=== PATIENT | female | born 1945 | race Caucasian/White ===

== ENCOUNTER 2016-12-11 18:41 | Emergency (ER) | payer MEDICARE, BC ==
--- NOTE | 2016-12-11 19:07 | ED ---
General Adult HPI - General Chief complaint: Neuro Symptoms/Deficit Stated complaint: poss TIA Time Seen by Provider: 12/11/16 18:50 Source: patient, EMS, RN notes reviewed Mode of arrival: EMS Limitations: no limitations - History of Present Illness Initial comments: Patient is a pleasant 71-year-old female presenting to the emergency department with difficulty using her left hand. Onset was around 5:00. Patient states she noticed this when she was trying to open a drawer and use her left hand to dial numbers. Patient does not feel confused. No headache. No speech problems. No other area of involvement. No history of similar symptoms previously. - Related Data Home Medications Medication Instructions Recorded Confirmed Ascorbic Acid [Vitamin C] 500 mg PO BID 12/12/14 12/12/14 Aspirin 81 mg PO ONCE 12/12/14 12/12/14 Cholecalciferol [Vitamin D3] 1,000 unit PO BID 12/12/14 12/12/14 Cyanocobalamin [Vitamin B-12] 500 mcg PO BID 12/12/14 12/12/14 Folic Acid 0.4 mg PO BID 12/12/14 12/12/14 Previous Rx's Medication Instructions Recorded Apixaban [Eliquis] 2.5 mg PO BID #60 tab 12/13/14 Metoprolol Tartrate [Lopressor] 12.5 mg PO BID #60 tab 12/13/14 Allergies Allergy/AdvReac Type Severity Reaction Status Date / Time No Known Allergies Allergy Verified 12/12/14 14:50 Review of Systems ROS Statement: Those systems with pertinent positive or pertinent negative responses have been documented in the HPI. ROS Other: All systems not noted in ROS Statement are negative. Constitutional: Denies: fever Eyes: Denies: eye pain ENT: Denies: ear pain Respiratory: Denies: cough Cardiovascular: Denies: chest pain Endocrine: Denies: fatigue Gastrointestinal: Denies: abdominal pain Genitourinary: Denies: urgency Musculoskeletal: Denies: back pain Skin: Denies: rash Neurological: Denies: headache, paresthesias, confusion Past Medical History Past Medical History: No Reported History Additional Past Medical History / Comment(s): polyps(benign), tinnitus, diverticular disease, hemorroids, kidney stone, aneima History of Any Multi-Drug Resistant Organisms: None Reported Past Surgical History: Appendectomy, Section, Tonsillectomy Additional Past Surgical History / Comment(s): SINUS SURGERY Past Anesthesia/Blood Transfusion Reactions: No Reported Reaction Past Psychological History: No Psychological Hx Reported Smoking Status: Never smoker Past Alcohol Use History: None Reported Past Drug Use History: None Reported - Past Family History Father Family Medical History: Cancer, Congestive Heart Failure (CHF) Additional Family Medical History / Comment(s): prostate ca with mnets to bones Mother Family Medical History: Renal Disease General Exam Limitations: no limitations General appearance: alert, in no apparent distress Head exam: Present: atraumatic Eye exam: Present: normal appearance, PERRL, EOMI. Absent: nystagmus ENT exam: Present: normal oropharynx Neck exam: Present: normal inspection Respiratory exam: Present: normal lung sounds bilaterally Cardiovascular Exam: Present: regular rate, normal rhythm GI/Abdominal exam: Present: soft. Absent: tenderness Extremities exam: Present: normal inspection Neurological exam: Present: alert, oriented X3, CN II-XII intact Expanded Patient oriented to: Present: person, place, time Speech: Present: fluid speech Cranial nerves: EOM's Intact: Normal, Facial Sensation: Normal Cerebellar function: Finger to Nose: Abnormal Left Sensory exam: Upper Extremity Light Touch: Normal, Lower Extremity Light Touch: Normal Motor strength exam: RUE: 5, LUE: 5, RLE: 5, LLE: 5 Eye Response: (4) open spontaneously Motor Response: (6) obeys commands Verbal Response: (5) oriented Psychiatric exam: Present: normal affect, normal mood Skin exam: Present: normal color Course Vital Signs 12/11/16 12/11/16 18:50 19:05 Temperature 97.8 F Pulse Rate 78 87 Respiratory 20 18 Rate Blood Pressure 158/82 160/87 O2 Sat by Pulse 97 99 Oximetry - Reevaluation(s) Reevaluation #1: 12/11/16 19:26 Case was discussed with radiologist, Dr. Dotson who does recommend starting the process of TPA and will get an the robot to evaluate the patient. 12/11/16 19:27 Patient was updated regarding TPA and benefits and especially risks. Patient is made aware that there is risk of potential permanent disability or related with this medication. Patient is made aware of potential for bleeding including bleeding in the brain and other areas of the body. Despite this patient would like to have TPA. Family is present. Exclusion criteria reviewed. Patient states she no longer takes Eliquis, it was only for one month in 2014. 12/11/16 19:[address] Dotson did evaluate patient and still does want TPA. He recommended transfer to [facility] following this. CT reviewed. 12/11/16 19:45 Patient is now questioning if she wants to have TPA or not. Patient is advised 3 hour window will be closed in 15 minutes. 12/11/16 19:52 Case was discussed with Dr. Lacey at [facility] who will accept transfer. Patient did decide to receive TPA. EKG Findings - EKG Comments: EKG Findings:: Normal sinus rhythm 79. AZ 162. QRS 118. QT 418. QTC 479. Left axis. LVH with repolarization change. Inferior and anterior Q waves. Medical Decision Making - Lab Data Result diagrams: 12/11/16 18:50 12/11/16 18:50 Lab Results 12/11/16 12/11/16 12/11/16 Range/Units 18:50 18:50 18:50 WBC 4.9 (3.8-10.6) k/uL RBC 4.51 (3.80-5.40) m/uL Hgb 14.0 (11.4-16.0) gm/dL Hct 42.7 (34.0-46.0) % MCV 94.7 (80.0-100.0) fL MCH 31.1 (25.0-35.0) pg MCHC 32.8 (31.0-37.0) g/dL RDW 13.9 (11.5-15.5) % Plt Count 161 (150-450) k/uL Neutrophils % 64 % Lymphocytes % 27 % Monocytes % 6 % Eosinophils % 1 % Basophils % 0 % Neutrophils # 3.2 (1.3-7.7) k/uL Lymphocytes # 1.3 (1.0-4.8) k/uL Monocytes # 0.3 (0-1.0) k/uL Eosinophils # 0.1 (0-0.7) k/uL Basophils # 0.0 (0-0.2) k/uL PT (9.0-12.0) sec INR (<1.2) APTT (22.0-30.0) sec Sodium 141 (137-145) mmol/L Potassium 4.2 (3.5-5.1) mmol/L Chloride 105 (98-107) mmol/L Carbon Dioxide 25 (22-30) mmol/L Anion Gap 11 mmol/L BUN 23 H (7-17) mg/dL Creatinine 0.90 (0.52-1.04) mg/dL Est GFR (MDRD) Af Amer >60 (>60 ml/min/1.73 sqM) Est GFR (MDRD) Non-Af >60 (>60 ml/min/1.73 sqM) Glucose 86 (74-99) mg/dL POC Glucose (mg/dL) (75-99) mg/dL POC Glu Mediation Commissioner ID Calcium 9.6 (8.4-10.2) mg/dL Total Bilirubin 0.5 (0.2-1.3) mg/dL AST 33 (14-36) U/L ALT 44 (9-52) U/L Alkaline Phosphatase 78 (38-126) U/L Total Creatine Kinase 68 (30-135) U/L CK-MB (CK-2) 0.9 (0.0-2.4) ng/mL CK-MB (CK-2) Rel Index 1.3 Troponin I <0.012 (0.000-0.034) ng/mL Total Protein 6.9 (6.3-8.2) g/dL Albumin 4.2 (3.5-5.0) g/dL 12/11/16 12/11/16 Range/Units 18:50 19:18 WBC (3.8-10.6) k/uL RBC (3.80-5.40) m/uL Hgb (11.4-16.0) gm/dL Hct (34.0-46.0) % MCV (80.0-100.0) fL MCH (25.0-35.0) pg MCHC (31.0-37.0) g/dL RDW (11.5-15.5) % Plt Count (150-450) k/uL Neutrophils % % Lymphocytes % % Monocytes % % Eosinophils % % Basophils % % Neutrophils # (1.3-7.7) k/uL Lymphocytes # (1.0-4.8) k/uL Monocytes # (0-1.0) k/uL Eosinophils # (0-0.7) k/uL Basophils # (0-0.2) k/uL PT 11.1 (9.0-12.0) sec INR 1.1 (<1.2) APTT 23.6 (22.0-30.0) sec Sodium (137-145) mmol/L Potassium (3.5-5.1) mmol/L Chloride (98-107) mmol/L Carbon Dioxide (22-30) mmol/L Anion Gap mmol/L BUN (7-17) mg/dL Creatinine (0.52-1.04) mg/dL Est GFR (MDRD) Af Amer (>60 ml/min/1.73 sqM) Est GFR (MDRD) Non-Af (>60 ml/min/1.73 sqM) Glucose (74-99) mg/dL POC Glucose (mg/dL) 78 (75-99) mg/dL POC Glu Mediation Commissioner ID Tressa Saul Calcium (8.4-10.2) mg/dL Total Bilirubin (0.2-1.3) mg/dL AST (14-36) U/L ALT (9-52) U/L Alkaline Phosphatase (38-126) U/L Total Creatine Kinase (30-135) U/L CK-MB (CK-2) (0.0-2.4) ng/mL CK-MB (CK-2) Rel Index Troponin I (0.000-0.034) ng/mL Total Protein (6.3-8.2) g/dL Albumin (3.5-5.0) g/dL - Radiology Data Radiology results: image reviewed (CT scan of the brain shows no acute intercranial hemorrhage, mass effect, or midline shift. Two-view chest x-ray shows no acute process.) Critical Care Time Critical Care Time: Yes Total Critical Care Time: 32 Disposition Clinical Impression: Cerebrovascular accident Disposition: OTHER INSTITUTION NOT DEFINED Condition: Serious Referrals: Gino Thayer DO [Primary Care Provider] - 1-2 days Time of Disposition: 19:54 - Out of Hospital Transfer - Req. Specs Out of Hospital Transfer - Requested Specifics: Other Emergency Center
[2016-12-11 19:11] LABS: Basophils % (A) 0 %; CH 31.3; CHCM 33.3; Eosinophils # (A) 0.1 k/uL (0-0.7); Eosinophils % (A) 1 %; HCT 42.7 % (34.0-46.0); HDW 2.26; Luc # (Auto) 0.09; Luc % (Auto) 2; Lymphocytes # (A) 1.3 k/uL (1.0-4.8); Lymphocytes % (A) 27 %; MCH 31.1 pg (25.0-35.0); MCHC 32.8 g/dL (31.0-37.0); MCV 94.7 fL (80.0-100.0); Mean Platelet Volume 8.4; Monocytes # (A) 0.3 k/uL (0-1.0); Monocytes % (A) 6 %; Neutrophils # (A) 3.2 k/uL (1.3-7.7); Neutrophils % (A) 64 %; RBC 4.51 m/uL (3.80-5.40); RDW 13.9 % (11.5-15.5); WBC 4.9 k/uL (3.8-10.6); WBC (Perox) 4.98
[2016-12-11 19:15] LABS: INR 1.1 (<1.2)
[2016-12-11 19:16] LABS: Partial Thromboplastin Time 23.6 sec (22.0-30.0); Prothrombin Time 11.1 sec (9.0-12.0)
[2016-12-11 19:20] LABS: Glucose,Whole Blood 78 mg/dL (75-99)
[2016-12-11 19:20] LABS: ALT 44 U/L (9-52); AST 33 U/L (14-36); Alkaline Phosphatase 78 U/L (38-126); Anion Gap 11 mmol/L; Blood Urea Nitrogen 23 mg/dL (7-17); Calcium 9.6 mg/dL (8.4-10.2); Carbon Dioxide 25 mmol/L (22-30); Chloride 105 mmol/L (98-107); Glucose 86 mg/dL (74-99); Non-African American GFR(MDRD) >60 (>60 ml/min/1.73 sqM); Potassium 4.2 mmol/L (3.5-5.1); Sodium 141 mmol/L (137-145); Total Bilirubin 0.5 mg/dL (0.2-1.3); Total Protein 6.9 g/dL (6.3-8.2)
[2016-12-11] MEDS ORDERED: tPA (Alteplase) PER PHARMACY 1 EACH MISC MISCELLANE PRN (19:28)
[2016-12-11] MEDS ORDERED: ALTEPLASE BOLUS 5 MG in EMPTY SYRINGE 1 SYR IV STA (19:30)
[2016-12-11] MEDS ORDERED: ALTEPLASE IV STA (19:30)
[2016-12-11 19:33] LABS: Creatine Kinase 68 U/L (30-135)
--- NOTE | 2016-12-11 19:33 | CT ---
EXAMINATION TYPE: CT brain wo con DATE OF EXAM: 12/11/2016 COMPARISON: NONE HISTORY: left sided weakness, blurred vision CT DLP: 981.7 mGycm Automated exposure control for dose reduction was used. FINDINGS: There is no acute intracranial hemorrhage, mass effect, or midline shift identified. The v entricles and sulci are within normal limits in size. The globes are intact and the visualized sinus es are clear. IMPRESSION: No acute intracranial hemorrhage, mass effect, or midline shift is seen.
--- NOTE | 2016-12-11 19:35 | XR ---
EXAMINATION TYPE: XR chest 2V DATE OF EXAM: 12/11/2016 COMPARISON: 12/12/2014 HISTORY: Altered mental status, possible TIA, numbness left arm. TECHNIQUE: Frontal and lateral views of the chest are obtained. FINDINGS: There is no focal air space opacity, pleural effusion, or pneumothorax seen. The cardiac silhouette size is within normal limits. The osseous structures are intact. IMPRESSION: No acute cardiopulmonary process.
[2016-12-11] MEDS ORDERED: SODIUM CHLORIDE 0.9% 1,000 ML IV ONE (19:44)
[2016-12-11 19:46] LABS: Creatine Kinase MB 0.9 ng/mL (0.0-2.4); Troponin I <0.012 ng/mL (0.000-0.034)
[2016-12-11 20:09] VITALS: TEMP 97.1
[2016-12-11 20:23] VITALS: BP 154/71; PULSE 89; RESP 16
== END 2016-12-11 20:25 | disposition other institution (70) ==
LOC: EC 18:41
DX: I63.9 Cerebral infarction, unspecified (principal); D64.9 Anemia, unspecified; Z79.82 Long term (current) use of aspirin; Z79.899 Other long term (current) drug therapy
CPT/HCPCS: 99291 ×2; 37195 ×2; 36415; 93005; 80053; 82550; 82553; 84484; 85025; 85610; 85730; 71020; 70450; J2997

== ENCOUNTER → 2017-03-05 | Outpatient (CLI) | payer MEDICARE, BC ==
--- NOTE | 2017-03-05 17:15 | BD ---
EXAMINATION TYPE: MG DEXA axial skeleton. DATE OF EXAM: 03/05/2017 COMPARISON: DEXA bone scan December 29, 2014 CLINICAL HISTORY: Postmenopausal female Height: 5 FT 1 1/2 IN Weight: 112 FRAX RISK QUESTIONS: Alcohol (3 or more units per day): NO Family History (Parent hip fracture): NO Glucocorticoids (More than 3mos): NO (Ex: prednisone, prednisolone, methylprednisolone, dexamethasone, and hydrocortisone). History of Fracture in Adulthood: YES Secondary Osteoporosis: 1. Type 1 Diabetes: NO 2. Hyperthyroidism: NO 3. Menopause before 45: NO 4. Malnutrition: NO 5. Chronic liver disease: NO Rheumatoid Arthritis: NO Current Tobacco Use: NO RISK FACTORS HISTORY OF: Family History of Osteoporosis: YES Active: YES Postmenopausal woman: AGE 51 MEDICATIONS: Additional Medications: ELOQUIST, LIPITOR, METOPROLOL Additional History: RECENT PACEMAKER JAN 2017 EXAM MEASUREMENTS: Bone mineral densitometry was performed using the [employer] System. Bone mineral density as measured about the Lumbar spine is: ----- L1-L4(G/cm2): 1.068 T Score Values are as follows: ----- L2: -1.6 ----- L3: -0.2 ----- L4: -0.2 ----- L1-L4: -0.9 Bone mineral density has: INCREASED 3.9 % since study of: 2014 Bone mineral density about the R hip (g/cm2): 0.803 Bone mineral density about the L hip (g/cm2): 0.892 T Score values are as follows: -----R Neck: -1.7 -----L Neck: -1.0 -----R Total: -1.2 -----L Total: -1.1 Bone mineral density has: DECREASED -1.3 % since study of: 2014 IMPRESSION: Osteopenia (T Score between -2.5 and -1 as noted by T score values persistent low back and both hips. There remains slightly increased risk of fracture and the patient may be considered for treatment. R e-Screen 2-5 years. NOTE: T-SCORE=SD OF THE YOUNG ADULT MEAN.
== END | disposition home or self-care (01) ==
LOC: RADBDWWP 15:36
PROVIDERS: ATTEND Family Medicine
DX: M85.852 Other specified disorders of bone density and structure, left thigh (principal); M85.851 Other specified disorders of bone density and structure, right thigh; M85.88 Other specified disorders of bone density and structure, other site
CPT/HCPCS: 77080

== ENCOUNTER → 2017-06-02 | Outpatient (CLI) | payer MEDICARE, BC ==
--- NOTE | 2017-06-03 10:31 | MM ---
Reason for exam: screening (asymptomatic). Last mammogram was performed 1 year and 5 months ago. History: Patient is postmenopausal. Family history of breast cancer in sister at age 57 and breast cancer in maternal grandmother at age 60. 4 cyst aspirations of the left breast. 3 cyst aspirations of the right breast. Excisional biopsy of the right breast. Physical Findings: A clinical breast exam by your physician is recommended on an annual basis and results should be correlated with mammographic findings. MG Screening Mammo w CAD Bilateral CC and MLO view(s) were taken. Prior study comparison: January 05, 2016, bilateral MG screening mammo w CAD. December 29, 2014, bilateral MG screening mammo w CAD. The breast tissue is heterogeneously dense. This may lower the sensitivity of mammography. Stable benign calcifications. There is no discrete abnormality. No significant changes when compared with prior studies. ASSESSMENT: Benign, BI-RAD 2 RECOMMENDATION: Routine screening mammogram of both breasts in 1 year.
== END | disposition home or self-care (01) ==
LOC: RADMAMWWP 14:51
PROVIDERS: ATTEND Family Medicine
DX: Z12.31 Encounter for screening mammogram for malignant neoplasm of breast (principal)
CPT/HCPCS: 77067

== ENCOUNTER → 2017-06-06 | Day surgery (SDC) | payer MEDICARE, BC ==
[2017-06-04 11:06] VITALS: BMI 20.6
[~2017-06-06] MED LIST: LACTATED RINGERS 1,000 ML IV SCH; LIDOCAINE 1% 20 ML VIAL (10MG/ML) FOR IV START INTRADERMA ONE; PROPOFOL 10 MG/ML 20 ML VIAL IV ONE
[2017-06-06 08:04] VITALS: RESP 16; TEMP 96.7
--- NOTE | 2017-06-06 09:01 | P.PCN ---
Date of Procedure: 06/06/17 Procedure(s) Performed: BRIEF HISTORY: Patient is a 72-year-old pleasant female, scheduled for an elective colonoscopy as a part of value should of prior history of colon polyps. Last colonoscopy was 5 years ago. PROCEDURE PERFORMED: Colonoscopy. PREOPERATIVE DIAGNOSIS: History of colon polyps. IV sedation per Anesthesia. PROCEDURE: After informed consent was obtained, the patient, was brought into the endoscopy unit. IV sedation was administered by Anesthesia under continuous monitoring. Digital rectal examination was normal. Initially the Olympus CF- 160 flexible video colonoscope was then inserted in the rectum, gradually advanced into the cecum without any difficulty. Careful examination was performed as the scope was gradually being withdrawn. Ileocecal valve and the appendiceal orifice were visualized and appeared normal. Prep was excellent. Mucosa of the cecum, ascending colon, transverse colon, descending colon, sigmoid colon, and rectum appeared normal. Scattered right-sided diverticulosis seen. Retroflexion was performed in the rectum and no lesions were seen. The patient tolerated the procedure well. IMPRESSION: Normal-appearing colon from rectum to cecum with no evidence of colorectal neoplasia. Scattered right-sided diverticulosis. RECOMMENDATIONS: Findings of this examination were discussed with the patient as well as her family. She was advised to have a repeat surveillance colonoscopy in 5 years.
[2017-06-06 09:47] VITALS: BP 130/84; PULSE 77
== END | disposition home or self-care (01) ==
LOC: ORWHC2ENDO 07:36
PROVIDERS: ATTEND Internal Medicine Gastroenterology
DX: Z12.11 Encounter for screening for malignant neoplasm of colon (principal); K57.30 Diverticulosis of large intestine without perforation or abscess without bleeding; Z86.010 Personal history of colon polyps; I10 Essential (primary) hypertension; E78.5 Hyperlipidemia, unspecified; I48.91 Unspecified atrial fibrillation; E11.9 Type 2 diabetes mellitus without complications; Z95.810 Presence of automatic (implantable) cardiac defibrillator; Z86.73 Personal history of transient ischemic attack (TIA), and cerebral infarction without residual deficits; Z79.01 Long term (current) use of anticoagulants; Z79.899 Other long term (current) drug therapy
CPT/HCPCS: J2704; G0105; 45378

== ENCOUNTER → 2018-06-05 | Outpatient (CLI) | payer MEDICARE, BC ==
--- NOTE | 2018-06-08 11:53 | MM ---
Reason for exam: screening (asymptomatic). Last mammogram was performed 1 year ago. History: Patient is postmenopausal. Family history of breast cancer in sister at age 57 and breast cancer in maternal grandmother at age 60. 4 cyst aspirations of the left breast. 3 cyst aspirations of the right breast. Excisional biopsy of the right breast. Physical Findings: A clinical breast exam by your physician is recommended on an annual basis and results should be correlated with mammographic findings. MG Screening Mammo w CAD Bilateral CC and MLO view(s) were taken. Prior study comparison: June 02, 2017, bilateral MG screening mammo w CAD. January 05, 2016, bilateral MG screening mammo w CAD. The breast tissue is heterogeneously dense. This may lower the sensitivity of mammography. There are benign appearing round vascular dystrophic calcifications bilaterally. There is no discrete abnormality. Left axillary pacemaker. ASSESSMENT: Benign, BI-RAD 2 RECOMMENDATION: Routine screening mammogram of both breasts in 1 year.
== END | disposition home or self-care (01) ==
LOC: RADMAMWWP 09:44
PROVIDERS: ATTEND Family Medicine
DX: Z12.31 Encounter for screening mammogram for malignant neoplasm of breast (principal)
CPT/HCPCS: 77067

== ENCOUNTER → 2018-09-02 | Day surgery (SDC) | payer MEDICARE, BC ==
[2018-08-28 11:54] VITALS: BMI 20.2
[~2018-09-02] MED LIST changes: +ALPRAZolam 0.25 MG TAB PO PRN; +ALPRAZolam 0.5 MG TAB PO PRN; +ASPIRIN 325 MG TAB PO STA; +ATORVASTATIN 80 MG TAB PO STA; +IOPAMIDOL-370 100ML BTL INJ ONE; +IV FLUID CONTINUATION 900 ML IV ONE; -LACTATED RINGERS 1,000 ML IV SCH; -LIDOCAINE 1% 20 ML VIAL (10MG/ML) FOR IV START INTRADERMA ONE; +LIDOCAINE 1% INJ 10MG/ML (20 ML MDV) SQ ONE; +MIDAZOLAM (PF) 2 MG/2 ML VIAL IVP ONE; +NITROGLYCERIN SL TABS 0.4 MG TAB SUBLINGUAL PRN; -PROPOFOL 10 MG/ML 20 ML VIAL IV ONE; +RX INFO: IV CONTRAST WAS GIVEN 1 EACH MISC MISCELLANE PRN; +SODIUM CHLORIDE 0.9% 1,000 ML IV ONE; +SODIUM CHLORIDE 0.9% 1,000 ML IV SCH; +SODIUM CHLORIDE 0.9% 1,000 ML in EMPTY BAG 1 BAG IV ONE; +fentaNYL (PF) 50 MCG/ML 2 ML AMP IV ONE; +fentaNYL (PF) 50 MCG/ML 2 ML AMP ONE
[2018-09-02] MEDS: BENZOCAINE SPRAY 1 CAN MUCOUS MEM ONE ×2 (09:46→09:47)
[2018-09-02 09:50] VITALS: RESP 12
[2018-09-02] MEDS: VERAPAMIL SYRINGE (5 MG/10 ML) INTRAARTER ONE ×2 (10:29→10:43)
--- NOTE | 2018-09-02 11:29 | ECHOT ---
TRANSESOPHAGEAL ECHOCARDIOGRAM DATE OF SERVICE: September 02, 2018 PERFORMING PHYSICIAN: Michael Perez MD, agriculture sales account manager. PROCEDURE PERFORMED: Transesophageal echocardiogram. INDICATION: Aortic and mitral regurgitation evaluation. PROCEDURE DESCRIPTION: After obtaining an informed consent, explaining the procedure, benefits, risks, complications and alternatives, the patient was brought to the transesophageal echocardiogram suite. A pulse oximetry and heart rate monitors were attached to the patient prior to the procedure. The patient's throat was sprayed using lidocaine locally. Following that, the patient was turned into left lateral position. A bite guard was placed and the patient was then sedated with the above doses of Versed and fentanyl in divided doses. Following that, the transesophageal echocardiogram probe was advanced through the bite guard into the mid esophagus where 2-D echocardiogram images as well as color Doppler images of various cardiac structures were obtained. We evaluated the interatrial septum using 2-D echocardiogram, color Doppler, and contrast study. The procedure was completed. There were no complications. FINDINGS: The left ventricular dimension appeared to be within normal limits. The left ventricular systolic function seems to be low normal with EF around 50%. Right ventricle appeared to be of normal size and function. The left atrium and right atrium are moderately dilated. The left atrial appendage appeared to be free from any thrombus. The interatrial septum appeared to be intact. The aortic valve is trileaflet valve without stenosis with severe insufficiency. The mitral valve seems to be mildly thickened with evidence of moderate to severe mitral regurgitation. The tricuspid valve had evidence of moderate tricuspid regurgitation as well. The pulmonic valve has mild insufficiency only. CONCLUSION: 1. Severe aortic regurgitation was identified. 2. Severe mitral regurgitation was seen as well with a central jet. 3. There was evidence of reversal flow in the descending thoracic aorta confirmed the severity of the aortic insufficiency. 4. Low normal left ventricular systolic function with ejection fraction of 50%. 5. Moderate tricuspid regurgitation. 6. Moderate biatrial enlargement. 7. Intact interatrial septum. 8. Normal left atrial appendage. 9. No evidence of pericardial effusion. MMODL / IJN: [id number] /
--- NOTE | 2018-09-02 13:05 | CC ---
CARDIAC CATHETERIZATION REPORT DATE OF SERVICE: September 02, 2018 PERFORMING PHYSICIAN: Michael Perez MD, automatic machines supervisor. PROCEDURE PERFORMED: 1. Selective right and left coronary angiogram. 2. Left heart catheterization. 3. Left ventriculography. 4. Aortic root angiogram. INDICATION: This is a 73-year-old female patient who is known to have paroxysmal atrial fibrillation, permanent pacemaker implantation, as well as aortic insufficiency, lately has been experiencing increasing in the shortness of breath. There was a concern regarding the severity of the aortic and mitral regurgitation and because of that, she was brought today to undergo a CHRISTY and heart catheterization. The CHRISTY revealed severe mitral and aortic regurgitation. APPROACH: Right radial artery. COMPLICATION: None. LEVEL OF SEDATION: Moderate with sedation length of 20 minutes. PROCEDURE DESCRIPTION: After obtaining an informed consent, the patient was brought to the cardiac mill laborer. The right radial artery was cannulated using micropuncture technique, the micropuncture wire passed easily then I placed a 6-Lao sheath in the right radial artery. After that I gave the patient 2 mg of verapamil IA and 5000 units of heparin IV. Selective right and left coronary angiogram was performed using JR3.5 and JL3.5 catheters. Left heart catheterization and left ventriculography as well as aortic root angiogram were performed using the 6-Lao pigtail catheter. The procedure was completed without any complication. SELECTIVE CORONARY ANGIOGRAM: 1. The right coronary artery is a large caliber vessel and it is a dominant vessel and appeared to be angiographically normal. It distally bifurcates into PDA and PLV branches, both appeared to be angiographically normal. 2. The left main is a short left main but appeared to be normal. It bifurcates into left circumflex and left anterior descending artery. 3. The left circumflex is a large caliber vessel. It is a nondominant vessel. The proximal circumflex appeared to be normal. It gives rise into the first OM branch which seems to be normal. The mid circumflex is normal as well and gives rise into second OM branch which seems to be normal and the circumflex continued after that as a small to medium caliber vessel in the AV groove. 4. The LAD: The proximal LAD appeared to be angiographically normal. The mid LAD is normal and gives rise into a large diagonal branch which seems to be normal and the LAD distally appeared to be normal. HEMODYNAMICS: The left ventricular end-diastolic pressure was 12 mmHg without significant gradient across the aortic valve. LEFT VENTRICULOGRAPHY: Left ventriculography was performed in the BAJWA projection and using a power injection. The left ventricular systolic function seems to be low normal with EF of 50%. AORTIC ROOT ANGIOGRAM: Aortic root angiogram was performed in the [place] projection and using a power injection. There was evidence of 3 to 4+ AI seen. CONCLUSION: 1. Normal coronary angiogram. 2. A 3 to 4+ aortic insufficiency seen. POSTPROCEDURE MANAGEMENT: 1. The patient will be scheduled to undergo aortic valve replacement. She expressed wishes that she would like that to be done out of town. 2. Follow up with the patient. MMODL / IJN: [id number] /
[2018-09-02 16:26] VITALS: BP 115/54; PULSE 54
--- NOTE | 2018-09-02 17:47 | LTR ---
September 02, 2018 To: Dr. Thayer Re: Jenise Kent (47) Dear Dr. Thayer, Ms. Jenise Kent underwent today a transesophageal echocardiogram as well as heart catheterization. She was found to have severe aortic insufficiency and she needs to have aortic valve replacement. I want to thank you for allowing us to participate in her care. Please do not hesitate to call if you have any question or concerns. Sincerely, Michael Perez MD MMJOSE / JONATHAN: [id number] /
== END ==
LOC: CATHCVL 08:19
PROVIDERS: ATTEND Internal Medicine Interventional Cardiology
DX: I35.1 Nonrheumatic aortic (valve) insufficiency (principal); I34.0 Nonrheumatic mitral (valve) insufficiency; I48.0 Paroxysmal atrial fibrillation
CPT/HCPCS: 93312; 93320; 93325; 93458; 93567; C1769 ×2; C1894; J2001; J3010; J1644; Q9967; J2250

== ENCOUNTER → 2018-09-21 | Outpatient (CLI) | payer MEDICARE, BC ==
[2018-09-21 15:50] LABS: Basophils % (A) 0 %; Eosinophils % (A) 1 %; HGB 13.9 gm/dL (11.4-16.0); Lymphocytes # (A) 1.4 k/uL (1.0-4.8); Lymphocytes % (A) 23 %; MCH 29.5 pg (25.0-35.0); MCHC 32.3 g/dL (31.0-37.0); MCV 91.3 fL (80.0-100.0); Mean Platelet Volume 9.1; Monocytes # (A) 0.3 k/uL (0-1.0); Monocytes % (A) 5 %; Neutrophils # (A) 4.3 k/uL (1.3-7.7); Neutrophils % (A) 69 %; Platelet Count 164 k/uL (150-450); RBC 4.71 m/uL (3.80-5.40); RDW 12.9 % (11.5-15.5); WBC 6.1 k/uL (3.8-10.6)
[2018-09-22 00:03] LABS: African American GFR (CKD) 52.3 (60.0-200.0); Albumin 4.3 g/dL (3.80-4.90); Albumin/Globulin Ratio 1.95 (1.60-3.17); Anion Gap 7.7 mmol/L (4.00-12.00); BUN/Creat Ratio 20.83 Ratio (12.00-20.00); Calcium 9.4 mg/dL (8.7-10.3); Carbon Dioxide 27.3 mmol/L (21.6-31.8); Globulin 2.2 g/dL (1.6-3.3); Potassium 4.3 mmol/L (3.5-5.5); Total Bilirubin 0.5 mg/dL (0.3-1.2); Total Protein 6.5 g/dL (6.2-8.2)
== END | disposition home or self-care (01) ==
LOC: LABWHC1 15:36
PROVIDERS: ATTEND Student in an Organized Health Care Education/Training Program
DX: I34.0 Nonrheumatic mitral (valve) insufficiency (principal); I35.1 Nonrheumatic aortic (valve) insufficiency
CPT/HCPCS: 36415; 80053; 83880; 85025

== ENCOUNTER → 2019-10-20 | Outpatient (CLI) | payer MEDICARE, BC ==
--- NOTE | 2019-10-20 15:54 | BD ---
EXAMINATION TYPE: Axial Bone Density DATE OF EXAM: 10/20/2019 COMPARISON: 03.05.2017 CLINICAL HISTORY: 74 YR OLD FEMALE.....ICD-10 CODE: M89.9 DISORDER OF BONE Height: 61.4 Weight: 111 FRAX RISK QUESTIONS: History of Fracture in Adulthood: YES RISK FACTORS HISTORY OF: LT PATELLA > 50 YRS OF AGE LT TOE FX > 50 YRS OF AGE Family History of Osteoporosis: YES, FATHER, AND SISTER...NO FXs Diet low in dairy products/other sources of calcium: YES, A BIT LOW Postmenopausal woman: YES, AT AGE 51 Hyperparathyroidism: NO Adrenal Insufficiency: NO MEDICATIONS: Osteoporosis Medications: FOSAMAX IN THE PAST, STOPPED 5+ YRS AGO Additional Medications: ELIQUIX AND A FIB MED, MULTIVITAMIN, CALCIUM AND VIT D Additional History: MACULAR DEGENERATION, HX OF STROKE, ARTHRITIS EXAM MEASUREMENTS: Bone mineral densitometry was performed using the [employer] System. Bone mineral density as measured about the Lumbar spine is: ----- L1-L4(G/cm2): 1.045 T Score Values are as follows: ----- L1: -2.5 ----- L2: -1.1 ----- L3: -0.1 ----- L4: -1.1 ----- L1-L4: -1.1 Bone mineral density has: Decreased -1.3% since study of: 03.05.2017 Bone mineral density about the R hip (g/cm2): 0.872 Bone mineral density about the L hip (g/cm2): 0.897 T Score values are as follows: -----R Neck: -1.5 -----L Neck: -1.0 -----R Total: -1.1 -----L Total: -0.9 Bone mineral density has: Increased 2.0% since study of: 03.05.2017 FRAX%s: THERE IS A 14.9% CHANCE FOR A MAJOR OSTEOPOROTIC FX AND A 2.7% FOR HIP......PROBABILITY FO R FX IN 10 YRS TIME IMPRESSION: Osteopenia (T Score between -2.5 and -1). There is slightly increased risk of fracture and the patient may be considered for treatment. Re-Screen 2-5 years. NOTE: T-SCORE=SD OF THE YOUNG ADULT MEAN.
--- NOTE | 2019-10-21 10:21 | MM ---
Reason for exam: screening (asymptomatic). Last mammogram was performed 1 year and 4 months ago. History: Patient is postmenopausal. Family history of breast cancer in sister at age 57 and breast cancer in maternal grandmother at age 60. 4 cyst aspirations of the left breast. 3 cyst aspirations of the right breast. Excisional biopsy of the right breast. Physical Findings: A clinical breast exam by your physician is recommended on an annual basis and results should be correlated with mammographic findings. MG 3D Screening Mammo W/Cad Bilateral CC and MLO view(s) were taken. Prior study comparison: June 05, 2018, bilateral MG screening mammo w CAD. June 02, 2017, bilateral MG screening mammo w CAD. The breast tissue is heterogeneously dense. This may lower the sensitivity of mammography. There are benign appearing round vascular dystrophic calcifications bilaterally. There is no discrete abnormality. ASSESSMENT: Benign, BI-RAD 2 RECOMMENDATION: Routine screening mammogram of both breasts in 1 year.
== END | disposition home or self-care (01) ==
LOC: RADMAMWWP 09:53
PROVIDERS: ATTEND Family Medicine
DX: Z12.31 Encounter for screening mammogram for malignant neoplasm of breast (principal); M85.80 Other specified disorders of bone density and structure, unspecified site
CPT/HCPCS: 77063; 77067; 77080

== ENCOUNTER → 2020-10-27 | Outpatient (CLI) | payer MEDICARE, BC ==
--- NOTE | 2020-10-31 10:03 | MM ---
Reason for exam: screening (asymptomatic). Last mammogram was performed 1 year ago. History: Patient is postmenopausal. Family history of breast cancer in sister at age 57 and breast cancer in maternal grandmother at age 60. 4 cyst aspirations of the left breast. 3 cyst aspirations of the right breast. Excisional biopsy of the right breast. Took hormonal contraceptives for 4 years. Physical Findings: A clinical breast exam by your physician is recommended on an annual basis and results should be correlated with mammographic findings. MG 3D Screening Mammo W/Cad Bilateral CC and MLO view(s) were taken. Prior study comparison: October 20, 2019, bilateral MG 3d screening mammo w/cad. June 05, 2018, bilateral MG screening mammo w CAD. The breast tissue is heterogeneously dense. This may lower the sensitivity of mammography. There are benign appearing round vascular calcifications bilaterally. There is no discrete abnormality. ASSESSMENT: Benign, BI-RAD 2 RECOMMENDATION: Routine screening mammogram of both breasts in 1 year.
== END | disposition home or self-care (01) ==
LOC: RADMAMWWP 07:51
PROVIDERS: ATTEND Family Medicine
DX: Z12.31 Encounter for screening mammogram for malignant neoplasm of breast (principal); Z78.0 Asymptomatic menopausal state; Z80.3 Family history of malignant neoplasm of breast; Z79.3 Long term (current) use of hormonal contraceptives
CPT/HCPCS: 77063; 77067

== ENCOUNTER → 2021-10-30 | Outpatient (CLI) | payer MEDICARE, BC ==
--- NOTE | 2021-10-31 13:51 | MM ---
Reason for Exam: Screening (asymptomatic). Last screening mammogram was performed 12 month(s) ago. Patient History: Menarche at age 14. First Full-Term at age 22. Postmenopausal. Patient used Hormonal Contraceptives for 4 years. Cyst Aspiration on the Right side. Cyst Aspiration on the Right side. Cyst Aspiration on the Right side. Cyst Aspiration on the Left side. Cyst Aspiration on the Left side. Cyst Aspiration on the Left side. Cyst Aspiration on the Left side. Excisional Biopsy on the Right side. Sister had breast cancer, age 57. Risk Values: Palma 5 year model risk: 4.0%. NCI Lifetime model risk: 8.5%. Prior Study Comparison: 06/05/2018 Bilateral Screening Mammogram, [facility]. 10/20/2019 Bilateral Screening Mammogram, [facility]. 10/27/2020 Bilateral Screening Mammogram, [facility]. Tissue Density: The breast tissue is heterogeneously dense. This may lower the sensitivity of mammography. Findings: Analyzed By CAD. No significant changes when compared with prior studies. Stable benign calcifications. No discrete abnormality. Overall Assessment: Benign, BI-RAD 2 Management: Screening Mammogram of both breasts in 1 year. A clinical breast exam by your physician is recommended on an annual basis and results should be correlated with mammographic findings. Electronically signed and approved by: Faizan Lazo M.D. Radiologis
== END | disposition home or self-care (01) ==
LOC: RADMAMWWP 07:40
PROVIDERS: ATTEND Family Medicine
DX: Z12.31 Encounter for screening mammogram for malignant neoplasm of breast (principal); Z78.0 Asymptomatic menopausal state; Z80.3 Family history of malignant neoplasm of breast; Z98.890 Other specified postprocedural states
CPT/HCPCS: 77063; 77067

== ENCOUNTER → 2022-11-01 | Outpatient (CLI) | payer MEDICARE, BC ==
--- NOTE | 2022-11-04 07:49 | MM ---
Reason for Exam: Screening (asymptomatic). Last screening mammogram was performed 12 month(s) ago. Patient History: Menarche at age 14. First Full-Term at age 22. Postmenopausal. Patient used Hormonal Contraceptives for 4 years. Cyst Aspiration on the Right side. Cyst Aspiration on the Right side. Cyst Aspiration on the Right side. Cyst Aspiration on the Left side. Cyst Aspiration on the Left side. Cyst Aspiration on the Left side. Cyst Aspiration on the Left side. Excisional Biopsy on the Right side. Sister had breast cancer, age 57. Risk Values: Palma 5 year model risk: 4.0%. NCI Lifetime model risk: 8.0%. Prior Study Comparison: 10/20/2019 Bilateral Screening Mammogram, [facility]. 10/27/2020 Bilateral Screening Mammogram, [facility]. 10/30/2021 Bilateral MG 3D screening mammo w/cad, [facility]. Tissue Density: The breast tissue is heterogeneously dense. This may lower the sensitivity of mammography. Findings: Analyzed By CAD. There is no suspicious group of microcalcifications or new suspicious mass in either breast. Overall Assessment: Benign, BI-RAD 2 Management: Screening Mammogram of both breasts in 1 year. . Patient should continue monthly self-breast exams. A clinical breast exam by your physician is recommended on an annual basis. This exam should not preclude additional follow-up of suspicious palpable abnormalities. Note on Palma scores and lifetime risk: 1. A Palma score greater than 3% is considered moderate risk. If this is the case, consider specialist referral to assess eligibility for a risk reducing agent. 2. If overall lifetime risk for the development of breast cancer is 20% or higher, the patient may qualify for future screening with alternating mammogram and breast MRI. Electronically signed and approved by: Faizan Lazo M.D. Radiologis
== END | disposition home or self-care (01) ==
LOC: RADMAMWWP 15:25
PROVIDERS: ATTEND Family Medicine
DX: Z12.31 Encounter for screening mammogram for malignant neoplasm of breast (principal); Z78.0 Asymptomatic menopausal state; Z80.3 Family history of malignant neoplasm of breast
CPT/HCPCS: 77063; 77067

== ENCOUNTER 2023-01-31 06:56 | Day surgery (SDC) | payer MEDICARE, BC ==
[~2023-01-31 06:56] MED LIST changes: -ALPRAZolam 0.25 MG TAB PO PRN; -ALPRAZolam 0.5 MG TAB PO PRN; -ASPIRIN 325 MG TAB PO STA; -ATORVASTATIN 80 MG TAB PO STA; -IOPAMIDOL-370 100ML BTL INJ ONE; -IV FLUID CONTINUATION 900 ML IV ONE; -LIDOCAINE 1% INJ 10MG/ML (20 ML MDV) SQ ONE; -MIDAZOLAM (PF) 2 MG/2 ML VIAL IVP ONE; -NITROGLYCERIN SL TABS 0.4 MG TAB SUBLINGUAL PRN; -RX INFO: IV CONTRAST WAS GIVEN 1 EACH MISC MISCELLANE PRN; -SODIUM CHLORIDE 0.9% 1,000 ML IV ONE; -SODIUM CHLORIDE 0.9% 1,000 ML in EMPTY BAG 1 BAG IV ONE; -fentaNYL (PF) 50 MCG/ML 2 ML AMP IV ONE; -fentaNYL (PF) 50 MCG/ML 2 ML AMP ONE
== END 2023-01-31 08:07 | disposition home or self-care (01) ==
LOC: OR 06:56
PROVIDERS: ATTEND Internal Medicine Interventional Cardiology
DX: Z53.8 Procedure and treatment not carried out for other reasons (principal)

== ENCOUNTER 2023-06-13 12:12 | Day surgery (SDC) | payer MEDICARE, BC ==
[2023-06-11 13:26] VITALS: BMI 19.2
[2023-06-13] MEDS: LACTATED RINGERS 1,000 ML IV SCH (13:15)
[2023-06-13 13:38] VITALS: TEMP 98.1
[2023-06-13] MEDS ORDERED: PROPOFOL 10 MG/ML 20 ML VIAL IV ONE (14:15)
--- NOTE | 2023-06-13 14:29 | P.PCN ---
Date of Procedure: 06/13/23 Procedure(s) Performed: BRIEF HISTORY: Patient is a pleasant 78-year-old white female scheduled for an elective colonoscopy as a part of screening for colon cancer and family history of colon cancer. Her father was diagnosed with colon cancer at age 60. PROCEDURE PERFORMED: Colonoscopy. PREOPERATIVE DIAGNOSIS: Screening for colon cancer and family history of colon cancer. IV sedation per Anesthesia. PROCEDURE: After informed consent was obtained, the patient, was brought into the endoscopy unit. IV sedation was administered by Anesthesia under continuous monitoring. Digital rectal examination was normal. Initially the Olympus CF-160 flexible video colonoscope was then inserted in the rectum, gradually advanced into the cecum without any difficulty. Careful examination was performed as the scope was gradually being withdrawn. Ileocecal valve and the appendiceal orifice were visualized and appeared normal. Prep was excellent. Mucosa of the cecum, ascending colon, transverse colon, descending colon, sigmoid colon, and rectum appeared normal. Scattered diverticulosis.Retroflexion was performed in the rectum and no lesions were seen. The patient tolerated the procedure well. IMPRESSION: Normal-appearing colon from rectum to cecum with no evidence of colorectal neoplasia . Scattered diverticulosis RECOMMENDATIONS: Findings of this examination were discussed with the patient as well as a family. She was advised to have a repeat screening colonoscopy in 5 years because of the family history of colon cancer.
[2023-06-13 15:03] VITALS: BP 123/73; PULSE 57; RESP 16
== END 2023-06-13 15:13 | disposition home or self-care (01) ==
LOC: ORWHC2ENDO 12:12
PROVIDERS: ATTEND Internal Medicine Gastroenterology
DX: Z12.11 Encounter for screening for malignant neoplasm of colon (principal); K57.30 Diverticulosis of large intestine without perforation or abscess without bleeding; Z80.0 Family history of malignant neoplasm of digestive organs
CPT/HCPCS: J2704; G0121; 43239

== ENCOUNTER 2023-08-09 18:23 | Emergency (ER) | payer MEDICARE, BC ==
[2023-08-09 18:47] VITALS: TEMP 97.8
--- NOTE | 2023-08-09 20:17 | ED ---
Arrhythmia/Palpitations HPI - General Source: patient, RN notes reviewed Mode of arrival: ambulatory Limitations: no limitations <Yudi Hutson - Last Filed: 08/09/23 20:15> <Kulwinder Mcmillan - Last Filed: 08/10/23 00:28> - General Chief Complaint: Arrhythmia/Palpitations Stated Complaint: AFIB Time Seen by Provider: 08/09/23 20:15 - History of Present Illness Initial Comments: Quick [id number] female presenting with atrial fibrillation x 5 days. Patient reports she has a history of paroxysmal A-fib and is currently taking Eliquis and metoprolol. She reports that her rate has been controlled however does admit some shortness of breath along with palpitations. Denies chest pain. (Yudi Hutson) - Related Data Home Medications Medication Instructions Recorded Confirmed Metoprolol Tartrate [Lopressor] 12.5 mg PO TID 01/24/17 06/11/23 Apixaban [Eliquis] 5 mg PO BID 04/24/22 06/11/23 Ascorbic Acid [Vitamin C] 1,000 mg PO DAILY 04/25/22 06/11/23 C3 Curcumin 1 tab PO Q48H PRN 04/25/22 06/11/23 Calcium Carbonate [Calcium] 600 mg PO DAILY 04/25/22 06/11/23 L.acidoph,Paracasei, B.lactis 1 each PO BID 04/25/22 06/11/23 [Probiotic] Vit C/E/Zn/Coppr/Lutein/Zeaxan 2 each PO DAILY 04/25/22 06/11/23 [Preservision Areds 2 Softgel] Vitamin B Complex 1 each PO DAILY 04/25/22 06/11/23 Unk Illuminize Vitamin 1 tab PO DAILY 01/29/23 06/11/23 Unk Super B Vitamin 1 tab PO Q48H 01/29/23 06/11/23 Unk Vitamin D 1 tab PO Q2D 01/29/23 06/11/23 lisinopriL [Lisinopril] 2.5 mg PO HS 01/29/23 06/11/23 Vitamin A 600 mcg PO DAILY 06/11/23 06/11/23 Allergies Allergy/AdvReac Type Severity Reaction Status Date / Time strawberry Allergy Itching Verified 08/09/23 18:47 corn AdvReac lack of Verified 08/09/23 18:47 energy Uimqjyr-EOL-IzG Reductase AdvReac muscle Verified 08/09/23 18:47 Inhibitor aches and lethargy wheat AdvReac stomach Verified 08/09/23 18:47 bloats and lack of energy Yeast AdvReac sore throat Verified 08/09/23 18:47 Review of Systems ROS Other: All systems not noted in ROS Statement are negative. <Yudi Hutson - Last Filed: 08/09/23 20:15> ROS Other: All systems not noted in ROS Statement are negative. <Kulwinder Mcmillan - Last Filed: 08/10/23 00:28> ROS Statement: Those systems with pertinent positive or pertinent negative responses have been documented in the HPI. 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 small hiatal hernia History of Any Multi-Drug Resistant Organisms: None Reported Past Surgical History: Appendectomy, Section, Pacemaker, Tonsillectomy Additional Past Surgical History / Comment(s): SINUS SURGERY,3 c-sections, CHRISTY, colonoscopy Past Anesthesia/Blood Transfusion Reactions: No Reported Reaction Additional Past Anesthesia/Blood Transfusion Reaction / Comment(s): no problems with prior blood transfusion,no known family hx of problems with anesthesia Type of Cardiac Device: Permanent Pacemaker Device Placement Date:: 01/2017 Left chest Past Psychological History: No Psychological Hx Reported Smoking Status: Never smoker Past Alcohol Use History: None Reported Past Drug Use History: None Reported - Past Family History Sister(s) Family Medical History: Cancer Brother(s) Family Medical History: Cancer Father Family Medical History: Cancer Additional Family Medical History / Comment(s): prostate ca with mets to bones,colon CA Mother Family Medical History: Renal Disease <Yudi Hutson - Last Filed: 08/09/23 20:15> General Exam Limitations: no limitations <Yudi Hutson - Last Filed: 08/09/23 20:15> Limitations: no limitations General appearance: alert, in no apparent distress Head exam: Present: atraumatic, normocephalic Eye exam: Present: normal appearance. Absent: scleral icterus, conjunctival injection Neck exam: Present: normal inspection Respiratory exam: Present: normal lung sounds bilaterally. Absent: respiratory distress, wheezes, rales, rhonchi, stridor, accessory muscle use Cardiovascular Exam: Present: tachycardia (Is approximately 112 at my exam), irregular rhythm, normal heart sounds. Absent: systolic murmur, diastolic murmur, rubs, gallop GI/Abdominal exam: Present: soft. Absent: distended, tenderness, guarding, rebound, rigid, mass Extremities exam: Present: normal inspection, normal capillary refill. Absent: pedal edema, calf tenderness Back exam: Present: normal inspection. Absent: CVA tenderness (R), CVA tenderness (L) Neurological exam: Present: alert Skin exam: Present: warm, dry, intact, normal color. Absent: rash <Kulwinder Mcmillan - Last Filed: 08/10/23 00:28> - General Exam Comments Initial Comments: Visual Physical Exam Vital signs reviewed General: Well-appearing, nontoxic, no acute distress. Head: Normocephalic, atraumatic Eyes: PERRLA, EOMI ENT: Airway patent Chest: Nonlabored breathing Skin: No visual rash, normal skin tone Neuro: Alert and oriented 3 Musculoskeletal: No gross abnormalities (HutsonYudi) Course Vital Signs 08/09/23 08/09/23 08/09/23 18:45 22:30 23:30 Temperature 97.8 F Pulse Rate 94 124 H 93 Respiratory 20 18 21 Rate Blood Pressure 136/84 137/85 128/65 O2 Sat by Pulse 100 97 98 Oximetry EKG Findings - EKG Results: EKG: [facility] by [facility] EKG shows: atrial fibrillation (Rate 87 bpm) - Blocks, [place], Hypertrophy, ST Abn: AV and intraventricular conduction: left bundle branch block (fixe d/intermittent, complete/incomplete) QRS axis and voltage: left axis deviation (-30 to -90) <Kulwinder Mcmillan - Last Filed: 08/10/23 00:28> Medical Decision Making <Yudi Hutson - Last Filed: 08/09/23 20:15> - Lab Data Result diagrams: 08/09/23 22:17 08/09/23 22:17 <Kulwinder Mcmillan - Last Filed: 08/10/23 00:28> - Medical Decision Making I completed the quick note portion of this chart signed Yudi Hutson PA-C (Yudi Hutson) - Lab Data Lab Results 08/09/23 08/09/23 08/09/23 Range/Units 22:17 22:17 22:17 WBC 5.7 (3.8-10.6) k/uL RBC 4.78 (3.80-5.40) m/uL Hgb 14.5 (11.4-16.0) gm/dL Hct 46.1 H (34.0-46.0) % MCV 96.3 (80.0-100.0) fL MCH 30.4 (25.0-35.0) pg MCHC 31.5 (31.0-37.0) g/dL RDW 12.8 (11.5-15.5) % Plt Count 149 L (150-450) k/uL MPV 9.3 Neutrophils % 60 % Lymphocytes % 31 % Monocytes % 6 % Eosinophils % 1 % Basophils % 1 % Neutrophils # 3.4 (1.3-7.7) k/uL Lymphocytes # 1.8 (1.0-4.8) k/uL Monocytes # 0.4 (0-1.0) k/uL Eosinophils # 0.1 (0-0.7) k/uL Basophils # 0.0 (0-0.2) k/uL PT 11.5 (10.0-12.5) sec INR 1.1 (<1.2) APTT 24.7 (22.0-30.0) sec Sodium 141 (137-145) mmol/L Potassium 5.2 H (3.5-5.1) mmol/L Chloride 108 H (98-107) mmol/L Carbon Dioxide 28 (22-30) mmol/L Anion Gap 5 mmol/L BUN 33 H (7-17) mg/dL Creatinine 0.89 (0.52-1.04) mg/dL Est GFR (CKD-EPI)AfAm 72 (>60 ml/min/1.73 sqM) Est GFR (CKD-EPI)NonAf 63 (>60 ml/min/1.73 sqM) Glucose 92 (74-99) mg/dL Calcium 9.5 (8.4-10.2) mg/dL Magnesium 2.2 (1.6-2.3) mg/dL Total Bilirubin 0.5 (0.2-1.3) mg/dL AST 50 H (14-36) U/L ALT 42 H (4-34) U/L Alkaline Phosphatase 81 (38-126) U/L Troponin I (0.000-0.034) ng/mL Total Protein 6.9 (6.3-8.2) g/dL Albumin 4.4 (3.5-5.0) g/dL 08/09/23 Range/Units 22:17 WBC (3.8-10.6) k/uL RBC (3.80-5.40) m/uL Hgb (11.4-16.0) gm/dL Hct (34.0-46.0) % MCV (80.0-100.0) fL MCH (25.0-35.0) pg MCHC (31.0-37.0) g/dL RDW (11.5-15.5) % Plt Count (150-450) k/uL MPV Neutrophils % % Lymphocytes % % Monocytes % % Eosinophils % % Basophils % % Neutrophils # (1.3-7.7) k/uL Lymphocytes # (1.0-4.8) k/uL Monocytes # (0-1.0) k/uL Eosinophils # (0-0.7) k/uL Basophils # (0-0.2) k/uL PT (10.0-12.5) sec INR (<1.2) APTT (22.0-30.0) sec Sodium (137-145) mmol/L Potassium (3.5-5.1) mmol/L Chloride (98-107) mmol/L Carbon Dioxide (22-30) mmol/L Anion Gap mmol/L BUN (7-17) mg/dL Creatinine (0.52-1.04) mg/dL Est GFR (CKD-EPI)AfAm (>60 ml/min/1.73 sqM) Est GFR (CKD-EPI)NonAf (>60 ml/min/1.73 sqM) Glucose (74-99) mg/dL Calcium (8.4-10.2) mg/dL Magnesium (1.6-2.3) mg/dL Total Bilirubin (0.2-1.3) mg/dL AST (14-36) U/L ALT (4-34) U/L Alkaline Phosphatase (38-126) U/L Troponin I <0.012 (0.000-0.034) ng/mL Total Protein (6.3-8.2) g/dL Albumin (3.5-5.0) g/dL Disposition <Yudi Hutson - Last Filed: 08/09/23 20:15> Is patient prescribed a controlled substance at d/c from ED?: No <Kulwinder Mcmillan - Last Filed: 08/10/23 00:28> Clinical Impression: Atrial fibrillation Disposition: HOME SELF-CARE Condition: Good Instructions (If sedation given, give patient instructions): A-fib (Atrial Fibrillation) (ED) Referrals: Gino Thayer DO [Primary Care Provider] - 1-2 days John Niño MD [STAFF PHYSICIAN] - 1-2 days
--- NOTE | 2023-08-09 20:51 | XR ---
EXAMINATION TYPE: XR chest 2V DATE OF EXAM: 08/09/2023 8:35 PM CLINICAL INDICATION:Female, 78 years old with history of atrial fibrillation; [facility] COMPARISON: Chest radiographs from 01/26/2017 TECHNIQUE: XR chest 2V Frontal and lateral views of the chest. FINDINGS: Lungs/Pleura: There is no evidence of pleural effusion, focal consolidation, or pneumothorax. Pulmonary vascularity: Unremarkable. Heart/mediastinum: Cardiomediastinal silhouette is unremarkable. Two lead cardiac conduction device o verlying the left hemithorax with lead tips projecting over the right ventricle and right atrium. Musculoskeletal: No acute osseous pathology. Other findings: None IMPRESSION: 1. No acute cardiopulmonary disease process. 2. COPD changes.
[2023-08-09 22:45] LABS: Basophils % (A) 1 %; Eosinophils # (A) 0.1 k/uL (0-0.7); Eosinophils % (A) 1 %; HCT 46.1 % (34.0-46.0); HGB 14.5 gm/dL (11.4-16.0); Lymphocytes # (A) 1.8 k/uL (1.0-4.8); Lymphocytes % (A) 31 %; MCH 30.4 pg (25.0-35.0); MCHC 31.5 g/dL (31.0-37.0); MCV 96.3 fL (80.0-100.0); Mean Platelet Volume 9.3; Monocytes # (A) 0.4 k/uL (0-1.0); Monocytes % (A) 6 %; Neutrophils # (A) 3.4 k/uL (1.3-7.7); Neutrophils % (A) 60 %; Platelet Count 149 k/uL (150-450); RBC 4.78 m/uL (3.80-5.40); RDW 12.8 % (11.5-15.5); WBC 5.7 k/uL (3.8-10.6)
[2023-08-09] MEDS: ASPIRIN 81 MG PO STA (22:57)
[2023-08-09] MEDS: METOPROLOL TARTRATE 5 MG/5 ML VIAL IVP STA (22:57)
[2023-08-09 23:05] LABS: INR 1.1 (<1.2); Partial Thromboplastin Time 24.7 sec (22.0-30.0); Prothrombin Time 11.5 sec (10.0-12.5)
[2023-08-09 23:08] LABS: ALT 42 U/L (4-34); AST 50 U/L (14-36); African American GFR (CKD) 72 (>60 ml/min/1.73 sqM); Albumin 4.4 g/dL (3.5-5.0); Alkaline Phosphatase 81 U/L (38-126); Anion Gap 5 mmol/L; Blood Urea Nitrogen 33 mg/dL (7-17); Calcium 9.5 mg/dL (8.4-10.2); Carbon Dioxide 28 mmol/L (22-30); Chloride 108 mmol/L (98-107); Glucose 92 mg/dL (74-99); Magnesium 2.2 mg/dL (1.6-2.3); Non-African American GFR(CKD) 63 (>60 ml/min/1.73 sqM); Potassium 5.2 mmol/L (3.5-5.1); Sodium 141 mmol/L (137-145); Total Bilirubin 0.5 mg/dL (0.2-1.3); Total Protein 6.9 g/dL (6.3-8.2)
[2023-08-09] MEDS: APIXABAN 5 MG TAB PO STA (23:58)
[2023-08-10] MEDS: METOPROLOL TARTRATE 5 MG/5 ML VIAL IVP STA (00:53)
[2023-08-10] MEDS: SODIUM CHLORIDE 0.9% 500 ML 500 ML IV STA (00:56)
[2023-08-10 02:15] VITALS: BP 123/79; RESP 16
[2023-08-10 02:36] VITALS: PULSE 111
[2023-08-10] MEDS ORDERED: APIXABAN 5 MG TAB PO SCH (09:00)
== END 2023-08-10 02:14 | disposition home or self-care (01) ==
LOC: EC 18:23
DX: I48.91 Unspecified atrial fibrillation (principal); I44.7 Left bundle-branch block, unspecified; Z91.018 Allergy to other foods; Z88.8 Allergy status to other drugs, medicaments and biological substances
CPT/HCPCS: 36415; 71046; 80053; 83735; 84484; 85025; 85610; 85730; 93005; 96374; 96376; 99285

== ENCOUNTER 2023-08-18 06:15 | Day surgery (SDC) | payer MEDICARE, BC ==
[~2023-08-18 06:15] MED LIST changes: +LACTATED RINGERS 1,000 ML IV SCH; +LIDOCAINE 1% (10MG/ML) FOR IV START INTRADERMA PRN; -SODIUM CHLORIDE 0.9% 1,000 ML IV SCH
[2023-08-18 06:45] VITALS: TEMP 97
[2023-08-18] MEDS: IV FLUID CONTINUATION 500 ML IV ONE (06:58)
[2023-08-18] MEDS: SODIUM CHLORIDE 0.9% 500 ML 500 ML IV SCH (06:59)
[2023-08-18] MEDS ORDERED: PROPOFOL 10 MG/ML 20 ML VIAL IV ONE (07:25)
--- NOTE | 2023-08-18 08:18 | P.PCN ---
Date of Procedure: 08/18/23 Operative Findings: Cardioversion Report Performing physician Michael Perez M.D. Procedure performed Successful cardioversion of atrial fibrillation to normal sinus mechanism using 120 J at first attempt Indication Symptomatic atrial fibrillation Complication None Level of sedation The procedure was performed under deep sedation using propofol with LICENSED THERAPIST in the room Procedure description After obtaining an informed consent the patient was brought to the recovery room. Sedation was introduced using propofol with LICENSED THERAPIST in the room. Subsequently the patient cardioverted from atrial fibrillation to normal sinus mechanism using 200 J and first attempt Conclusion Successful cardioversion of atrial fibrillation to normal sinus mechanism using 200 J Postprocedure management Continue the current medical regimen Continue oral anticoagulation Follow-up with the patient
[2023-08-18 08:44] VITALS: BP 119/58; PULSE 57; RESP 16
== END 2023-08-18 09:07 ==
LOC: OR 06:15
PROVIDERS: ATTEND Internal Medicine Interventional Cardiology
DX: I48.91 Unspecified atrial fibrillation (principal); I12.9 Hypertensive chronic kidney disease with stage 1 through stage 4 chronic kidney disease, or unspecified chronic kidney disease; N18.2 Chronic kidney disease, stage 2 (mild); E78.5 Hyperlipidemia, unspecified; K21.9 Gastro-esophageal reflux disease without esophagitis; Z86.73 Personal history of transient ischemic attack (TIA), and cerebral infarction without residual deficits; Z79.01 Long term (current) use of anticoagulants; Z95.0 Presence of cardiac pacemaker; Z79.899 Other long term (current) drug therapy; Z88.8 Allergy status to other drugs, medicaments and biological substances
CPT/HCPCS: 92960; J2704

== ENCOUNTER → 2023-11-04 | Outpatient (CLI) | payer MEDICARE, BC ==
--- NOTE | 2023-11-04 14:52 | US ---
EXAMINATION TYPE: US kidneys/renal and bladder DATE OF EXAM: 11/04/2023 COMPARISON: NONE CLINICAL INDICATION: Female, 78 years old with history of N18.31 CHRONIC KIDNEY DISEASE, STAGE 3A; CK D EXAM MEASUREMENTS: Right Kidney: 10.9 x 3.8 x 3.8 cm Left Kidney: 10.0 x 4.2 x 4.5 cm Right Kidney: No hydronephrosis or masses seen Left Kidney: No hydronephrosis or masses seen Bladder: wnl Bilateral Jets seen: No There is no evidence for hydronephrosis at this point in time. No nephrolithiasis is seen. No prince s are identified. The urinary bladder is anechoic. Renal cortical thickness is normal. IMPRESSION: No acute process.
== END | disposition home or self-care (01) ==
LOC: RADUSWWP 13:12
PROVIDERS: ATTEND Internal Medicine Nephrology
DX: N18.31 Chronic kidney disease, stage 3a (principal)
CPT/HCPCS: 76770

== ENCOUNTER 2023-12-30 16:33 | Inpatient (IN) | payer MEDICARE, BC ==
[2023-12-30] MEDS ORDERED: DILTIAZEM DRIP BOLUS FROM BAG 1 MG SOLN IV ONE (16:51)
--- NOTE | 2023-12-30 16:53 | ED ---
Arrhythmia/Palpitations HPI - General Chief Complaint: Arrhythmia/Palpitations Stated Complaint: a-fib Time Seen by Provider: 12/30/23 16:51 Source: patient, RN notes reviewed, old records reviewed Mode of arrival: wheelchair Limitations: no limitations - History of Present Illness Initial Comments: This is a 78-year-old female to the ER for evaluation of A-fib for a few days maybe 5 days severe shortness of breath with exertion no chest pain patient has severe shortness of breath persistent here in the ER though improved MD Complaint: rapid heart beat, "heart racing", palpitations, irregular heart beat, atrial fibrillation -: days(s) Arrhythmia History: atrial fibrillation Associated Symptoms: shortness of breath Treatments Prior to Arrival: other - Related Data Home Medications Medication Instructions Recorded Confirmed Apixaban [Eliquis] 5 mg PO BID 04/24/22 12/30/23 L.acidoph,Paracasei, B.lactis 1 cap PO BID 04/25/22 12/30/23 [Probiotic] Vit C/E/Zn/Coppr/Lutein/Zeaxan 1 cap PO BID 04/25/22 12/30/23 [Preservision Areds 2 Softgel] Calcium 260mg/Magnesium 1 tab PO DAILY 12/30/23 12/30/23 119mcg/Vitamin K2/Vitamin D3 10mcg Curcumin Complex 400mg 1 - 2 tab PO DAILY 12/30/23 12/30/23 Illumineyes 1 tab PO DAILY 12/30/23 12/30/23 Magnesium(Unknown Dose) 800 mg PO DAILY PRN 12/30/23 12/30/23 Vitamin B-6/B-12(25mg/100mcg) 1 tab PO Q72H 12/30/23 12/30/23 Vitamin C 650mg 1 tab PO DAILY 12/30/23 12/30/23 Vitamin D3 40mcg 80 mcg PO DAILY 12/30/23 12/30/23 Previous Rx's Medication Instructions Recorded Furosemide [Lasix] 40 mg PO DAILY #60 tab 01/02/24 Metoprolol Tartrate [Lopressor] 25 mg PO TID@0800,1600,2300 #180 01/02/24 tab Potassium Chloride ER [K-Dur 20] 20 meq PO DAILY #30 tab 01/02/24 Allergies Allergy/AdvReac Type Severity Reaction Status Date / Time strawberry Allergy Itching Verified 12/30/23 19:33 corn AdvReac lack of Verified 12/30/23 19:33 energy mold AdvReac sinuses Verified 12/30/23 19:33 [id number] Reductase AdvReac muscle Verified 12/30/23 19:33 Inhibitor aches and lethargy wheat AdvReac stomach Verified 12/30/23 19:33 bloats and lack of energy Yeast AdvReac sore Verified 12/30/23 19:33 throat,sinuses fungus AdvReac sinuses Uncoded 12/30/23 19:33 Review of Systems ROS Statement: Those systems with pertinent positive or pertinent negative responses have been documented in the HPI. ROS Other: All systems not noted in ROS Statement are negative. 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 small hiatal hernia History of Any Multi-Drug Resistant Organisms: None Reported Past Surgical History: Adenoidectomy, Appendectomy, Section, Pacemaker, Tonsillectomy Additional Past Surgical History / Comment(s): SINUS SURGERY,3 c-sections, CHRISTY, colonoscopy Past Anesthesia/Blood Transfusion Reactions: No Reported Reaction Additional Past Anesthesia/Blood Transfusion Reaction / Comment(s): no problems with prior blood transfusion,no known family hx of problems with anesthesia Type of Cardiac Device: Permanent Pacemaker Device Placement Date:: 01/2017 Left chest Past Psychological History: No Psychological Hx Reported Smoking Status: Never smoker - Past Family History Sister(s) Family Medical History: Cancer Brother(s) Family Medical History: Cancer Father Family Medical History: Cancer Additional Family Medical History / Comment(s): prostate ca with mets to bones, colon CA Mother Family Medical History: Renal Disease General Exam Limitations: no limitations General appearance: alert, in no apparent distress, anxious Head exam: Present: atraumatic, normocephalic, normal inspection Eye exam: Present: normal appearance, PERRL, EOMI. Absent: scleral icterus, conjunctival injection, periorbital swelling ENT exam: Present: normal exam, mucous membranes moist Neck exam: Present: normal inspection. Absent: tenderness, meningismus, lymphadenopathy Respiratory exam: Present: normal lung sounds bilaterally. Absent: respiratory distress, wheezes, rales, rhonchi, stridor Cardiovascular Exam: Present: tachycardia, irregular rhythm, normal heart sounds. Absent: systolic murmur, diastolic murmur, rubs, gallop, clicks GI/Abdominal exam: Present: soft, normal bowel sounds. Absent: distended, tenderness, guarding, rebound, rigid Extremities exam: Present: normal inspection, full ROM, normal capillary refill. Absent: tenderness, pedal edema, joint swelling, calf tenderness Back exam: Present: normal inspection Neurological exam: Present: alert, oriented X3, CN II-XII intact Psychiatric exam: Present: normal affect, normal mood Skin exam: Present: warm, dry, intact, normal color. Absent: rash Course Vital Signs 12/30/23 12/30/23 12/30/23 16:36 17:23 17:50 Temperature 97.4 F L Pulse Rate 129 H 109 H 112 H Pulse Rate [ Foil Stamp Operator ] Pulse Rate [ Pulse Oximetery ] Respiratory 18 18 18 Rate Blood Pressure 135/66 125/86 142/72 Blood Pressure [Right Arm] O2 Sat by Pulse 94 L 94 L Oximetry 12/30/23 12/30/23 12/30/23 19:08 20:00 21:30 Temperature Pulse Rate 73 85 97 Pulse Rate [ Foil Stamp Operator ] Pulse Rate [ Pulse Oximetery ] Respiratory 18 13 17 Rate Blood Pressure 132/70 128/67 113/56 Blood Pressure [Right Arm] O2 Sat by Pulse 93 L 93 L 96 Oximetry 12/30/23 12/31/23 12/31/23 23:27 04:00 07:45 Temperature 97.6 F Pulse Rate 71 Pulse Rate [ 130 H Foil Stamp Operator ] Pulse Rate [ 84 Pulse Oximetery ] Respiratory 24 24 18 Rate Blood Pressure 133/68 Blood Pressure 135/95 131/71 [Right Arm] O2 Sat by Pulse 95 95 91 L Oximetry 12/31/23 12/31/23 12/31/23 08:02 08:50 10:45 Temperature 97.7 F Pulse Rate 75 70 73 Pulse Rate [ Foil Stamp Operator ] Pulse Rate [ Pulse Oximetery ] Respiratory 20 22 20 Rate Blood Pressure 124/75 136/74 Blood Pressure [Right Arm] O2 Sat by Pulse 92 L 92 L 92 L Oximetry 12/31/23 12/31/23 12/31/23 11:05 11:06 12:25 Temperature 97.7 F Pulse Rate 141 H 86 73 Pulse Rate [ Foil Stamp Operator ] Pulse Rate [ Pulse Oximetery ] Respiratory 20 17 Rate Blood Pressure 139/80 149/83 Blood Pressure [Right Arm] O2 Sat by Pulse 92 L 95 Oximetry 12/31/23 12/31/23 12/31/23 15:18 15:25 16:19 Temperature 97.6 F 97.7 F Pulse Rate 93 87 Pulse Rate [ Foil Stamp Operator ] Pulse Rate [ Pulse Oximetery ] Respiratory 18 16 Rate Blood Pressure 130/93 145/92 Blood Pressure [Right Arm] O2 Sat by Pulse 93 L 90 L 90 L Oximetry - Reevaluation(s) Reevaluation #1: 12/30/23 18:50 Medical records reviewed Reevaluation #2: 12/30/23 18:51 Patient symptoms improved with chest pain worsened Reevaluation #3: 12/30/23 18:52 Patient informed of results and questions answered Reevaluation #4: Was pt. sent in by a medical professional or institution (, PA, BATTERY LOADER, urgent care, hospital, or half-way...) When possible be specific @ -no Did you speak to anyone other than the patient for history (EMS, parent, family, police, friend...)? What history was obtained from this source @ -no Did you review nursing and triage notes (agree or disagree)? Why? @ -agree Are old charts reviewed (outside hosp., previous admission, EMS record, old EKG, old radiological studies, urgent care reports/EKG's, half-way records)? Report findings @ -yes Differential Diagnosis (chest pain, altered mental status, abdominal pain women, abdominal pain men, vaginal bleeding, weakness, fever, dyspnea, syncope, headache, dizziness, GI bleed, back pain, seizure, CVA, palpatations, mental health, musculoskeletal)? @ -prior EKG interpreted by me (3pts min.). @ -yes X-rays interpreted by me (1pt min.). @ -no CT interpreted by me (1pt min.). @ -no U/S interpreted by me (1pt. min.). @ -no What testing was considered but not performed or refused? (CT, X-rays, U/S, labs)? Why? @ -none What meds were considered but not given or refused? Why? @ -none Did you discuss the management of the patient with other professionals (professionals i.e. Dr., PA, BATTERY LOADER, lab, RT, psych nurse, social media marketer, dividing machine operator helper, teacher, deputy probation officer, ed case manager)? Give summary @ -no Was smoking cessation discussed for >3mins.? @ -no Was critical care preformed (if so, how long)? @ -yes31 Were there social determinants of health that impacted care today? How? (Homelessness, low income, unemployed, alcoholism, drug addiction, transportation, low edu. Level, literacy, decrease access to med. care, long term, rehab)? @ -none Was there de-escalation of care discussed even if they declined (Discuss DNR or withdrawal of care, Hospice)? DNR status @ -no What co-morbidities impacted this encounter? (DM, HTN, Smoking, COPD, CAD, Cancer, CVA, ARF, Chemo, Hep., AIDS, mental health diagnosis, sleep apnea, morbid obesity)? @ -none Was patient admitted / discharged? Hospital course, mention meds given and route, prescriptions, significant lab abnormalities, going to OR and other pertinent info. @ - 78 female with atrial fibrillation and RVR patient will be admitted for cardiology evaluation and treatment Admitted Undiagnosed new problem with uncertain prognosis? @ -no Drug Therapy requiring intensive monitoring for toxicity (Heparin, Nitro, Insulin, Cardizem)? @ -no Were any procedures done? @ -no Diagnosis/symptom? @ -Arrhythmia Acute, or Chronic, or Acute on Chronic? @ -Acute Uncomplicated (without systemic symptoms) or Complicated (systemic symptoms)? @ -Complicated Side effects of treatment? @ -no Exacerbation, Progression, or Severe Exacerbation? @ -exacerbation Poses a threat to life or bodily function? How? (Chest pain, [place], [place], pneumonia, PE, COPD, DKA, ARF, appy, cholecystitis, CVA, Diverticulitis, Homicidal, Suicidal, threat to staff... and all critical care pts) @ -yes with arrhythmia Reevaluation #5: Differential Palpitations Ventricular arrhythmias, atrial arrhythmias, myocardial infarction, anemia, thyrotoxicosis, electrolyte imbalance, hypokalemia, pulmonary embolism, pulmonary disease, drugs, alcohol, anxiety, stress.... This is not meant to be an all-inclusive list. - Consultations Consultation #1: With Dr. Sweeney wantning patient admitted with amiodarone Consultation #2: Spoke with [facility] who agrees to admit this patient EKG Findings - EKG Comments: EKG Findings:: EKG is A-fib with RVR 119 QRS 125 QTc 385 - EKG Results: EKG: interpreted by SUZANNE Medical Decision Making - Medical Decision Making 78 female with atrial fibrillation and RVR patient will be admitted for cardiology evaluation and treatment - Lab Data Result diagrams: 12/31/23 06:27 01/02/24 07:50 Lab Results 12/30/23 12/30/23 12/30/23 Range/Units 17:03 17:03 17:03 WBC 6.6 (3.8-10.6) k/uL RBC 4.68 (3.80-5.40) m/uL Hgb 14.8 (11.4-16.0) gm/dL Hct 45.1 (34.0-46.0) % MCV 96.5 (80.0-100.0) fL MCH 31.6 (25.0-35.0) pg MCHC 32.8 (31.0-37.0) g/dL RDW 13.3 (11.5-15.5) % Plt Count 179 (150-450) k/uL MPV 9.1 Neutrophils % 63 % Lymphocytes % 28 % Monocytes % 6 % Eosinophils % 1 % Basophils % 0 % Neutrophils # 4.1 (1.3-7.7) k/uL Lymphocytes # 1.8 (1.0-4.8) k/uL Monocytes # 0.4 (0-1.0) k/uL Eosinophils # 0.1 (0-0.7) k/uL Basophils # 0.0 (0-0.2) k/uL PT 13.6 H (10.0-12.5) sec INR 1.3 H (<1.2) APTT 25.2 (22.0-30.0) sec Sodium 136 L (137-145) mmol/L Potassium 4.6 (3.5-5.1) mmol/L Chloride 106 (98-107) mmol/L Carbon Dioxide 23 (22-30) mmol/L Anion Gap 7 mmol/L BUN 36 H (7-17) mg/dL Creatinine 0.92 (0.52-1.04) mg/dL Est GFR (CKD-EPI)AfAm 70 (>60 ml/min/1.73 sqM) Est GFR (CKD-EPI)NonAf 60 (>60 ml/min/1.73 sqM) Glucose 183 H (74-99) mg/dL Plasma Lactic Acid Vikas (0.7-2.0) mmol/L Calcium 9.3 (8.4-10.2) mg/dL Phosphorus 3.8 (2.5-4.5) mg/dL Magnesium 2.0 (1.6-2.3) mg/dL Total Bilirubin 0.8 (0.2-1.3) mg/dL AST 43 H (14-36) U/L ALT 31 (4-34) U/L Alkaline Phosphatase 101 (38-126) U/L Troponin I (0.000-0.034) ng/mL NT-Pro-B Natriuret Pep 4530 pg/mL Total Protein 6.8 (6.3-8.2) g/dL Albumin 4.2 (3.5-5.0) g/dL Urine Color Urine Appearance (Clear) Urine pH (5.0-8.0) Ur Specific [place] (1.001-1.035) Urine Protein (Negative) Urine Glucose (UA) (Negative) Urine Ketones (Negative) Urine Blood (Negative) Urine Nitrite (Negative) Urine Bilirubin (Negative) Urine Urobilinogen (<2.0) mg/dL Ur Leukocyte Esterase (Negative) 12/30/23 12/30/23 12/30/23 Range/Units 17:03 17:03 17:03 WBC (3.8-10.6) k/uL RBC (3.80-5.40) m/uL Hgb (11.4-16.0) gm/dL Hct (34.0-46.0) % MCV (80.0-100.0) fL MCH (25.0-35.0) pg MCHC (31.0-37.0) g/dL RDW (11.5-15.5) % Plt Count (150-450) k/uL MPV Neutrophils % % Lymphocytes % % Monocytes % % Eosinophils % % Basophils % % Neutrophils # (1.3-7.7) k/uL Lymphocytes # (1.0-4.8) k/uL Monocytes # (0-1.0) k/uL Eosinophils # (0-0.7) k/uL Basophils # (0-0.2) k/uL PT (10.0-12.5) sec INR (<1.2) APTT (22.0-30.0) sec Sodium (137-145) mmol/L Potassium (3.5-5.1) mmol/L Chloride (98-107) mmol/L Carbon Dioxide (22-30) mmol/L Anion Gap mmol/L BUN (7-17) mg/dL Creatinine (0.52-1.04) mg/dL Est GFR (CKD-EPI)AfAm (>60 ml/min/1.73 sqM) Est GFR (CKD-EPI)NonAf (>60 ml/min/1.73 sqM) Glucose (74-99) mg/dL Plasma Lactic Acid Vikas 1.5 (0.7-2.0) mmol/L Calcium (8.4-10.2) mg/dL Phosphorus (2.5-4.5) mg/dL Magnesium (1.6-2.3) mg/dL Total Bilirubin (0.2-1.3) mg/dL AST (14-36) U/L ALT (4-34) U/L Alkaline Phosphatase (38-126) U/L Troponin I <0.012 (0.000-0.034) ng/mL NT-Pro-B Natriuret Pep pg/mL Total Protein (6.3-8.2) g/dL Albumin (3.5-5.0) g/dL Urine Color Colorless Urine Appearance Clear (Clear) Urine pH 5.0 (5.0-8.0) Ur Specific [place] 1.016 (1.001-1.035) Urine Protein Trace H (Negative) Urine Glucose (UA) Negative (Negative) Urine Ketones Negative (Negative) Urine Blood Negative (Negative) Urine Nitrite Negative (Negative) Urine Bilirubin Negative (Negative) Urine Urobilinogen <2.0 (<2.0) mg/dL Ur Leukocyte Esterase Negative (Negative) - EKG Data -: EKG Interpreted by Me (EKG is sinus A-fib 90 QRS 123 QTc 457) Critical Care Time Critical Care Time: Yes Total Critical Care Time: 31 Disposition Clinical Impression: Tachycardia, Palpitations, Atrial fibrillation with rapid ventricular response, Chest pain Disposition: ADMITTED IP TO THIS HOSP Condition: Serious Is patient prescribed a controlled substance at d/c from ED?: No Time of Disposition: 17:00
[2023-12-30] MEDS: SODIUM CHLORIDE 0.9% 1,000 ML IV STA (17:26)
[2023-12-30] MEDS: METOPROLOL TARTRATE 5 MG/5 ML VIAL IVP STA (17:27)
[2023-12-30 17:28] LABS: Basophils % (A) 0 %; Eosinophils # (A) 0.1 k/uL (0-0.7); Eosinophils % (A) 1 %; HCT 45.1 % (34.0-46.0); HGB 14.8 gm/dL (11.4-16.0); Lymphocytes # (A) 1.8 k/uL (1.0-4.8); Lymphocytes % (A) 28 %; MCH 31.6 pg (25.0-35.0); MCHC 32.8 g/dL (31.0-37.0); MCV 96.5 fL (80.0-100.0); Mean Platelet Volume 9.1; Monocytes # (A) 0.4 k/uL (0-1.0); Monocytes % (A) 6 %; Neutrophils # (A) 4.1 k/uL (1.3-7.7); Neutrophils % (A) 63 %; Platelet Count 179 k/uL (150-450); RBC 4.68 m/uL (3.80-5.40); RDW 13.3 % (11.5-15.5); WBC 6.6 k/uL (3.8-10.6)
[2023-12-30 17:37] LABS: ALT 31 U/L (4-34); AST 43 U/L (14-36); African American GFR (CKD) 70 (>60 ml/min/1.73 sqM); Albumin 4.2 g/dL (3.5-5.0); Alkaline Phosphatase 101 U/L (38-126); Anion Gap 7 mmol/L; Blood Urea Nitrogen 36 mg/dL (7-17); Calcium 9.3 mg/dL (8.4-10.2); Carbon Dioxide 23 mmol/L (22-30); Chloride 106 mmol/L (98-107); Glucose 183 mg/dL (74-99); Non-African American GFR(CKD) 60 (>60 ml/min/1.73 sqM); Phosphorus 3.8 mg/dL (2.5-4.5); Potassium 4.6 mmol/L (3.5-5.1); Sodium 136 mmol/L (137-145); Total Bilirubin 0.8 mg/dL (0.2-1.3); Total Protein 6.8 g/dL (6.3-8.2)
[2023-12-30 17:46] LABS: NT-Pro-B-Type Natriuretic Pept 4530 pg/mL
[2023-12-30 17:52] LABS: INR 1.3 (<1.2); Partial Thromboplastin Time 25.2 sec (22.0-30.0); Prothrombin Time 13.6 sec (10.0-12.5)
[2023-12-30] MEDS: DILTIAZEM 5 MG/ML 5 ML VIAL IV ONE (18:03)
[2023-12-30 18:46] LABS: Appearance,Urine Clear (Clear); Bilirubin,Urine Negative (Negative); Blood,Urine Negative (Negative); Color,Urine Colorless; Glucose,Urine (UA) Negative (Negative); Ketones,Urine Negative (Negative); Leukocyte Esterase,Urine Negative (Negative); Nitrite,Urine Negative (Negative); Protein,Urine Trace (Negative); Specific Gravity,Urine 1.016 (1.001-1.035); Urobilinogen,Urine <2.0 mg/dL (<2.0)
[2023-12-30] MEDS: DEXTROSE 5% IN WATER 100 ML with AMIODARONE 150 MG IV ONE (20:00)
[2023-12-30] MEDS: MAGNESIUM SULFATE-D5W PMX 1 GM in DEXTROSE/WATER 1 100ML.BAG IVPB ONE (20:00)
[2023-12-30] MEDS ORDERED: ONDANSETRON 4 MG/2 ML VIAL IVP PRN (20:01)
[2023-12-30] MEDS ORDERED: NALOXONE 0.4 MG/ML 1 ML VIAL IV PRN (20:01)
[2023-12-30] MEDS ORDERED: HYDROmorphone 2 MG/ML 1 ML SYRINGE IVP PRN (20:01)
[2023-12-30] MEDS: DEXTROSE 5% IN WATER 250 ML with AMIODARONE 300 MG IV ONE (20:18)
[2023-12-30] MEDS: SODIUM CHLORIDE 0.9% 1,000 ML IV SCH (21:28)
[2023-12-30] MEDS: METOPROLOL TARTRATE 25 MG TAB PO SCH (23:49)
[2023-12-30] MEDS: APIXABAN 5 MG TAB PO SCH (23:49)
[2023-12-31] MEDS: DILTIAZEM 125 MG in SODIUM CHLORIDE 0.9% 100 ML IV SCH (04:20)
[2023-12-31] MEDS: DILTIAZEM DRIP BOLUS FROM BAG 1 MG SOLN IV STA (04:24)
[2023-12-31 06:59] LABS: Basophils % (A) 1 %; Eosinophils % (A) 0 %; HCT 48.3 % (34.0-46.0); HGB 15.3 gm/dL (11.4-16.0); Hypochromasia Slight; Lymphocytes # (A) 0.9 k/uL (1.0-4.8); Lymphocytes % (A) 12 %; MCH 31.5 pg (25.0-35.0); MCHC 31.7 g/dL (31.0-37.0); MCV 99.3 fL (80.0-100.0); Mean Platelet Volume 9.1; Monocytes # (A) 0.4 k/uL (0-1.0); Monocytes % (A) 5 %; Neutrophils # (A) 6.4 k/uL (1.3-7.7); Neutrophils % (A) 81 %; Platelet Count 195 k/uL (150-450); RBC 4.86 m/uL (3.80-5.40); RDW 13.4 % (11.5-15.5); WBC 7.9 k/uL (3.8-10.6)
[2023-12-31 07:12] LABS: ALT 40 U/L (4-34); AST 53 U/L (14-36); African American GFR (CKD) 79 (>60 ml/min/1.73 sqM); Albumin 3.9 g/dL (3.5-5.0); Alkaline Phosphatase 95 U/L (38-126); Anion Gap 9 mmol/L; Blood Urea Nitrogen 33 mg/dL (7-17); Calcium 8.9 mg/dL (8.4-10.2); Carbon Dioxide 18 mmol/L (22-30); Chloride 108 mmol/L (98-107); Glucose 113 mg/dL (74-99); Non-African American GFR(CKD) 69 (>60 ml/min/1.73 sqM); Phosphorus 3.5 mg/dL (2.5-4.5); Potassium 4.8 mmol/L (3.5-5.1); Sodium 135 mmol/L (137-145); Total Bilirubin 1.3 mg/dL (0.2-1.3); Total Protein 6.5 g/dL (6.3-8.2)
[2023-12-31] MEDS: FUROSEMIDE 20 MG TAB PO SCH (08:01)
[2023-12-31] MEDS: DILTIAZEM CD 120 MG CAP.ER.24H PO SCH (09:39)
[2023-12-31] MEDS: CHOLECALCIFEROL 25 MCG (1000 IU) TABLET PO SCH (10:42)
[2023-12-31] MEDS: LACTOBACILLUS ACIDOPHILUS/PECT 1 EACH CAPSULE PO SCH (10:42)
[2023-12-31] MEDS: ASCORBIC ACID 500 MG TAB PO SCH (10:42)
[2023-12-31] MEDS: VIT A,C & E-LUTEIN-MINERALS 1 EACH TAB PO SCH (11:01)
--- NOTE | 2023-12-31 12:21 | P.CRDCN ---
History of Present Illness Consult date: 12/31/23 Reason for Consult (text): Atrial fibrillation History of present illness: This is a 78-year-old female patient of Dr. Perez with past medical history of paroxysmal atrial fibrillation, permanent pacemaker, valvular heart disease with aortic stenosis and regurgitation and mitral regurgitation and tricuspid regurgitation, pulmonary hypertension, nonischemic cardiomyopathy. We have been asked to evaluate the patient for A-fib with RVR. Patient was last seen in the office on 09/23/2023 at which time she discussed aortic valve replacement but she wanted to wait until she came back from [place]. Patient apparently came back yesterday and came directly to the hospital. She states that she felt onset of atrial fibrillation on Friday. She states she develops weak legs could hardly walk and her heart rate is elevated. She denies any lower extremity edema but feels like her abdomen is bloated. She does have some shortness of br eath and continue to have shortness of breath now. She states with that she is atrial fibrillation she can only walk about 25 steps but when she is out of atrial fibrillation she can walk 4 miles daily. She does not usually experience dizziness or lightheadedness otherwise. No chest pain or chest pressure. She has a follow-up appointment with Dr. Perez on 01/12 to talk about plan to repair or replace valve. Blood pressure 133/68, heart rate 75, pulse ox 91% on 4 L nasal cannula. Telemetry is paced rhythm with underlying atrial fibrillation. Patient is seen today in the emergency center waiting for bed on the cardiac stepdown unit. She has status post Cardizem 10 mg IV followed by Cardizem drip. EKG: #1 atrial fibrillation 119 bpm, #2 atrial fibrillation 90 bpm Laboratory studies: WBC 7.9, hemoglobin 15.3. Sodium 135, potassium 4.8, BUN 33 and creatinine 0.83. Troponins negative x 3. proBNP 4530. Home cardiac medications: Magnesium 800 mg daily as needed, Eliquis 5 mg twice d aily, Lasix 20 mg daily, lisinopril 2.5 mg daily, metoprolol tartrate 25 mg 3 times daily. Cardioversion 08/18/2023, successful. Cardiac catheterization 04/30/2022 revealed mild nonobstructive coronary artery disease. Echocardiogram performed 04/29/2023 revealed EF of 40%, moderate MR, mild , severe TR, severe pulmonary hypertension, severe AR. Dual-chamber pacemaker implantation Praveen 01/25/2017 Exercise tolerance test 06/05/2023 with fair exercise tolerance, no symptoms of angina, no dysrhythmias, nondiagnostic electrocardiographic stress test secondary to baseline EKG abnormalities. Review Of Systems: At the time of my exam: CONSTITUTIONAL: Denies fever or chills. HEENT: Denies blurred vision, vision changes, or eye pain. Denies hemoptysis CARDIOVASCULAR: Denies chest pain. Denies orthopnea. Denies PND. Denies palpitations RESPIRATORY: Denies shortness of breath. GASTROINTESTINAL: Denies abdominal pain. Denies nausea or vomiting. HEMATOLOGIC: Denies bleeding disorders. GENITOURINARY: Denies any blood in urine. SKIN: Denies puritis. Denies rash. Physical examination: Gen: This is a 78-year-old thin female in no acute respiratory distress. VS: reviewed HEENT: Head is atraumatic, normocephalic. Pupils equal, round. Sclerae is anicteric. NECK: Supple. No JVD. LUNGS: Clear to auscultation. No wheezes or rhonchi. No intercostal retractions. HEART: Irregular rate and rhythm. Systolic and diastolic murmur. ABDOMEN: Soft No tenderness. EXTREMITIES: No pedal edema. No calf tenderness. NEUROLOGICAL: Patient is awake, alert and oriented x3. Assessment: Paroxysmal atrial fibrillation presenting with RVR, currently controlled rate History of permanent pacemaker Aortic stenosis and regurgitation, mitral regurgitation, tricuspid regurgitation Pulmonary hypertension Nonischemic cardiomyopathy Plan: Resume patient's home cardiac medications: Eliquis 5 mg twice daily, Lasix 20 mg daily, lisinopril 2.5 mg daily, metoprolol tartrate 25 mg 3 times daily Discontinue Cardizem drip and start patient on Cardizem CD 120 mg daily Obtain 2-D echocardiogram and Doppler study to assess cardiac structure and function Further recommendations to follow based upon clinical course Thank you kindly for this consultation. Nurse practitioner note has been reviewed, I agree with documented findings and plan of care. Patient was seen and examined. Past Medical History Past Medical History: Atrial Fibrillation, CVA/TIA, Eye Disorder, Hearing Disorder / Deafness, Hypertension, Osteoarthritis (OA), Renal Disease, Skin Dis order Additional Past Medical History / Comment(s): tinnitus, diverticular disease, hemorrhoids, kidney stones, anemia,hx CVA-no residual, leaky aortic severe & mitral valve mild,3rd heart valve leaking, left bundle branch block, tachy-chase syndrome, vertigo-no current problems, stage 3A kidney disease-sees Dr. Kimbrough, macular degeneration left eye. small hiatal hernia History of Any Multi-Drug Resistant Organisms: None Reported Past Surgical History: Adenoidectomy, Appendectomy, Section, Pacemaker, Tonsillectomy Additional Past Surgical History / Comment(s): SINUS SURGERY,3 c-sections, CHRISTY/cardioversion, colonoscopy Past Anesthesia/Blood Transfusion Reactions: No Reported Reaction Additional Past Anesthesia/Blood Transfusion Reaction / Comment(s): no problems with prior blood transfusion,no known family hx of problems with anesthesia Type of Cardiac Device: Permanent Pacemaker Device Placement Date:: 01/2017 Left chest Smoking Status: Never smoker - Past Family History Sister(s) Family Medical History: Cancer Brother(s) Family Medical History: Cancer Father Family Medical History: Cancer Additional Family Medical History / Comment(s): prostate ca with mets to bones,colon CA Mother Family Medical History: Renal Disease Medications and Allergies Home Medications Medication Instructions Recorded Confirmed Type Metoprolol Tartrate [Lopressor] 25 mg PO TID@0800,1600,2300 01/24/17 12/30/23 History Apixaban [Eliquis] 5 mg PO BID 04/24/22 12/30/23 History L.acidoph,Paracasei, B.lactis 1 cap PO BID 04/25/22 12/30/23 History [Probiotic] Vit C/E/Zn/Coppr/Lutein/Zeaxan 1 cap PO BID 04/25/22 12/30/23 History [Preservision Areds 2 Softgel] lisinopriL 2.5 mg PO DAILY 01/29/23 12/30/23 History Calcium 260mg/Magnesium 1 tab PO DAILY 12/30/23 12/30/23 History 119mcg/Vitamin K2/Vitamin D3 10mcg Curcumin Complex 400mg 1 - 2 tab PO DAILY 12/30/23 12/30/23 History Furosemide [Lasix] 20 mg PO DAILY 12/30/23 12/30/23 History Illumineyes 1 tab PO DAILY 12/30/23 12/30/23 History Magnesium(Unknown Dose) 800 mg PO DAILY PRN 12/30/23 12/30/23 History Vitamin B-6/B-12(25mg/100mcg) 1 tab PO Q72H 12/30/23 12/30/23 History Vitamin C 650mg 1 tab PO DAILY 12/30/23 12/30/23 History Vitamin D3 40mcg 80 mcg PO DAILY 12/30/23 12/30/23 History Allergies Allergy/AdvReac Type Severity Reaction Status Date / Time strawberry Allergy Itching Verified 12/30/23 19:33 corn AdvReac lack of Verified 12/30/23 19:33 energy mold AdvReac sinuses Verified 12/30/23 19:33 [id number] Reductase AdvReac muscle Verified 12/30/23 19:33 Inhibitor aches and lethargy wheat AdvReac stomach Verified 12/30/23 19:33 bloats and lack of energy Yeast AdvReac sore Verified 12/30/23 19:33 throat,sinuses fungus AdvReac sinuses Uncoded 12/30/23 19:33 Physical Exam Vitals: Vital Signs Temp Pulse Pulse Pulse Resp BP BP 12/31/23 08:50 97.7 F 70 22 124/75 12/31/23 08:02 75 20 12/31/23 07:45 97.6 F 71 18 133/68 12/31/23 04:00 130 H 24 131/71 12/30/23 23:27 84 24 135/95 12/30/23 21:30 97 17 113/56 12/30/23 20:00 85 13 128/67 12/30/23 19:08 73 18 132/70 12/30/23 17:50 112 H 18 142/72 12/30/23 17:23 109 H 18 125/86 12/30/23 16:36 97.4 F L 129 H 18 135/66 Pulse Ox 12/31/23 08:50 92 L 12/31/23 08:02 92 L 12/31/23 07:45 91 L 12/31/23 04:00 95 12/30/23 23:27 95 12/30/23 21:30 96 12/30/23 20:00 93 L 12/30/23 19:08 93 L 12/30/23 17:50 12/30/23 17:23 94 L 12/30/23 16:36 94 L Intake and Output 12/30/23 12/31/23 12/31/23 22:59 06:59 14:59 Output Total 200 Balance -200 Output: Urine 200 Other: Voiding Method Bedside Commode # Voids 2 Weight 45.359 kg 45.359 kg Results 12/31/23 06:27 12/31/23 06:27 Cardiac Enzymes 12/30/23 12/30/23 12/30/23 Range/Units 17:03 17:03 20:56 AST 43 H (14-36) U/L Troponin I <0.012 <0.012 (0.000-0.034) ng/mL 12/30/23 12/31/23 Range/Units 23:49 06:27 AST 53 H (14-36) U/L Troponin I <0.012 (0.000-0.034) ng/mL Coagulation 12/30/23 Range/Units 17:03 PT 13.6 H (10.0-12.5) sec APTT 25.2 (22.0-30.0) sec CBC 12/30/23 12/31/23 Range/Units 17:03 06:27 WBC 6.6 7.9 (3.8-10.6) k/uL RBC 4.68 4.86 (3.80-5.40) m/uL Hgb 14.8 15.3 (11.4-16.0) gm/dL Hct 45.1 48.3 H (34.0-46.0) % Plt Count 179 195 (150-450) k/uL Comprehensive Metabolic Panel 12/30/23 12/31/23 Range/Units 17:03 06:27 Sodium 136 L 135 L (137-145) mmol/L Potassium 4.6 4.8 (3.5-5.1) mmol/L Chloride 106 108 H (98-107) mmol/L Carbon Dioxide 23 18 L (22-30) mmol/L BUN 36 H 33 H (7-17) mg/dL Creatinine 0.92 0.83 (0.52-1.04) mg/dL Glucose 183 H 113 H (74-99) mg/dL Calcium 9.3 8.9 (8.4-10.2) mg/dL AST 43 H 53 H (14-36) U/L ALT 31 40 H (4-34) U/L Alkaline Phosphatase 101 95 (38-126) U/L Total Protein 6.8 6.5 (6.3-8.2) g/dL Albumin 4.2 3.9 (3.5-5.0) g/dL Current Medications Generic Name Dose Route Start Last Admin Trade Name Freq PRN Reason Stop Dose Admin Apixaban 5 mg 12/30/23 23:30 12/31/23 08:01 Apixaban 5 Mg Tab PO 5 mg BID WADE Administration Protocol Furosemide 20 mg 12/31/23 09:00 12/31/23 08:01 Furosemide 20 Mg Tab PO 20 mg DAILY WADE Administration Hydromorphone HCl 1 mg 12/30/23 20:01 Hydromorphone 2 Mg/Ml 1 Ml Syringe IVP Q3HR PRN Severe Pain (Scale 7 to 10) Sodium Chloride 1,000 mls @ 75 mls/hr 12/30/23 20:15 12/31/23 08:46 Saline 0.9% IV 75 mls/hr .[id number] WADE Administration Diltiazem HCl 125 mg/ Sodium 125 mls @ 10 mls/hr 12/31/23 04:00 12/31/23 04:20 Chloride IV 10 mg/hr .[id number] WADE 10 mls/hr Administration 10 MG/HR Lisinopril 2.5 mg 12/31/23 09:00 12/31/23 08:01 Lisinopril 2.5 Mg Tab PO 2.5 mg DAILY WADE Administration Metoprolol Tartrate 25 mg 12/30/23 23:17 12/31/23 07:45 Metoprolol Tartrate 25 Mg Tab PO 25 mg TID@0800,1600,2300 WADE Administration Naloxone HCl 0.2 mg 12/30/23 20:01 Naloxone 0.4 Mg/Ml 1 Ml Vial IV Q2M PRN Opioid Reversal Ondansetron HCl 4 mg 12/30/23 20:01 Ondansetron 4 Mg/2 Ml Vial IVP Q8HR PRN Nausea And Vomiting Intake and Output 12/30/23 12/31/23 12/31/23 22:59 06:59 14:59 Output Total 200 Balance -200 Output: Urine 200 Other: Voiding Method Bedside Commode # Voids 2 Weight 45.359 kg 45.359 kg 12/31/23 06:27 12/31/23 06:27
--- NOTE | 2023-12-31 15:36 | P.HPIM ---
History of Present Illness H&P Date: 12/31/23 Chief Complaint: Short of breath This is a pleasant 78-year-old patient, follows with Dr. Thayer. 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 Kimbrough macular degeneration. Patient presents with shortness of breath for about 4 days. Patient has a diagnosis of atrial fibrillation since 2014. August of this year had undergone cardioversion. Found to be in A-fib with rapid ventricular rate initially was put on IV Cardizem drip. This morning put on p.o. Cardizem. No chest pain or pressure follows with urgent care technician Dr. Perez Review of systems: GEN.: Tired EYES: None HEENT: [Decreased hearing NECK: None RESPIRATORY: As above CARDIOVASCULAR: No edema GASTROINTESTINAL: None GENITOURINARY: Urine stress incontinence MUSCULOSKELETAL: Joint pains LYMPHATICS: None HEMATOLOGICAL: None PSYCHIATRY: None NEUROLOGICAL: None Social history: Lives alone. Denies any alcohol or smoking history. Physical examination: VITAL SIGNS 97.4, 129, 18, 135 x 66, 94% room air upon presentation GENERAL: BMI 18.9, reclining bed awake a bit tired. EYES: Pupils equal. Conjunctiva clifford l. HEENT: External appearance of nose and ears normal, oral cavity grossly normal. Decreased hearing NECK: JVD not raised; masses not palpable. HEART: Heart sounds irregular; no edema. LUNGS: Respiratory rate normal; clear to auscultation. ABDOMEN: Soft, nontender, liver spleen not palpable, no masses palpable. PSYCH: Alert and oriented x3; mood and affect clifford l. MUSCULOSKELETAL:No Clubbing/cyanosis;muscles-grossly intact. OA NEUROLOGICAL: Cranial nerves grossly intact; no facial asymmetry, power and sensation grossly intact. LYMPHATICS: No lymph nodes palpable in the axilla and neck INVESTIGATIONS, reviewed in the clinical context: December 31, 2023: White count 7.9 hemoglobin 15.3 platelets 195 sodium 135 potassium 4.8 BUN 33 creatinine 0.83 Troponin I less than 0.02 x 3 EKG tracing personally reviewed by me-atrial fibrillation. Left bundle branch block. Rate 119 2D echocardiogram [April 29, 2023] EF 40%. Moderate MR. Severe TR. Severe pulmonary hypertension. Severe AR. Cardiac catheterization [April 2022] mild nonobstructive CAD Assessment plan: -Persistent atrial fibrillation rapid ventricular rate. Was started on IV Cardizem overnight. This morning we switched her to Cardizem CD 120 mg a day. Home dose of Lopressor 25 3 times daily to continue. Eliquis -Hard of hearing -Nonischemic cardiomyopathy EF 40% Lopressor -Moderate mitral regurgitation, severe tricuspid regurgitation, severe aortic regurgitation -Severe secondary pulmonary hypertension -Essential hypertension Lopressor. Cardizem -Primary osteoarthritis Tylenol as needed -Colonic diverticulosis, asymptomatic -Chronic kidney disease stage IIIa Follows with Dr. Kimbrough outpatient -Pacemaker 2017 -Full code Cardiology was consulted. Discussed with patient. Past Medical History Past Medical History: Atrial Fibrillation, CVA/TIA, Eye Disorder, Hearing Disorder / Deafness, Hypertension, Osteoarthritis (OA), Renal Disease, Skin Disorder Additional Past Medical History / Comment(s): tinnitus, diverticular disease, hemorrhoids, kidney stones, anemia,hx CVA-no residual, leaky aortic severe & mitral valve mild,3rd heart valve leaking, left bundle branch block, tachy-chase syndrome, vertigo-no current problems, stage 3A kidney disease-sees Dr. Kimbrough, macular degeneration left eye. small hiatal hernia History of Any Multi-Drug Resistant Organisms: None Reported Past Surgical History: Adenoidectomy, Appendectomy, Section, Pacemaker, Tonsillectomy Additional Past Surgical History / Comment(s): SINUS SURGERY,3 c-sections, CHRISTY/cardioversion, colonoscopy Past Anesthesia/Blood Transfusion Reactions: No Reported Reaction Additional Past Anesthesia/Blood Transfusion Reaction / Comment(s): no problems with prior blood transfusion,no known family hx of problems with anesthesia Type of Cardiac Device: Permanent Pacemaker Device Placement Date:: 01/2017 Left chest Smoking Status: Never smoker - Past Family History Sister(s) Family Medical History: Cancer Brother(s) Family Medical History: Cancer Father Family Medical History: Cancer Additional Family Medical History / Comment(s): prostate ca with mets to bones,colon CA Mother Family Medical History: Renal Disease Medications and Allergies Home Medications Medication Instructions Recorded Confirmed Type Metoprolol Tartrate [Lopressor] 25 mg PO TID@0800,1600,2300 01/24/1712/29/24 H istory Apixaban [Eliquis] 5 mg PO BID 04/24/22 12/30/23 History L.acidoph,Paracasei, B.lactis 1 cap PO BID 04/25/22 12/30/23 History [Probiotic] Vit C/E/Zn/Coppr/Lutein/Zeaxan 1 cap PO BID 04/25/22 12/30/23 History [Preservision Areds 2 Softgel] lisinopriL 2.5 mg PO DAILY 01/29/23 12/30/23 History Calcium 260mg/Magnesium 1 tab PO DAILY 12/30/23 12/30/23 History 119mcg/Vitamin K2/Vitamin D3 10mcg Curcumin Complex 400mg 1 - 2 tab PO DAILY 12/30/23 12/30/23 History Furosemide [Lasix] 20 mg PO DAILY 12/30/23 12/30/23 History Illumineyes 1 tab PO DAILY 12/30/23 12/30/23 History Magnesium(Unknown Dose) 800 mg PO DAILY PRN 12/30/23 12/30/23 History Vitamin B-6/B-12(25mg/100mcg) 1 tab PO Q72H 12/30/23 12/30/23 History Vitamin C 650mg 1 tab PO DAILY 12/30/23 12/30/23 History Vitamin D3 40mcg 80 mcg PO DAILY 12/30/23 12/30/23 History Allergies Allergy/AdvReac Type Severity Reaction Status Date / Time strawberry Allergy Itching Verified 12/30/23 19:33 corn AdvReac lack of Verified 12/30/23 19:33 energy mold AdvReac sinuses Verified 12/30/23 19:33 [id number]-[id number] Reductase AdvReac muscle Verified 12/30/23 19:33 Inhibitor aches and lethargy wheat AdvReac stomach Verified 12/30/23 19:33 bloats and lack of energy Yeast AdvReac sore Verified 12/30/23 19:33 throat,sinuses fungus AdvReac sinuses Uncoded 12/30/23 19:33 Physical Exam Vitals: Vital Signs Temp Pulse Pulse Pulse Resp BP BP 12/31/23 08:50 97.7 F 70 22 124/75 12/31/23 08:02 75 20 12/31/23 07:45 97.6 F 71 18 133/68 12/31/23 04:00 130 H 24 131/71 12/30/23 23:27 84 24 135/95 12/30/23 21:30 97 17 113/56 12/30/23 20:00 85 13 128/67 12/30/23 19:08 73 18 132/70 12/30/23 17:50 112 H 18 142/72 12/30/23 17:23 109 H 18 125/86 12/30/23 16:36 97.4 F L 129 H 18 135/66 Pulse Ox 12/31/23 08:50 92 L 12/31/23 08:02 92 L 12/31/23 07:45 91 L 12/31/23 04:00 95 12/30/23 23:27 95 12/30/23 21:30 96 12/30/23 20:00 93 L 12/30/23 19:08 93 L 12/30/23 17:50 12/30/23 17:23 94 L 12/30/23 16:36 94 L Intake and Output 12/30/23 12/31/23 12/31/23 22:59 06:59 14:59 Output Total 200 Balance -200 Output: Urine 200 Other: Voiding Method Bedside Commode # Voids 2 Weight 45.359 kg 45.359 kg Results CBC & Chem 7: 12/31/23 06:27 12/31/23 06:27 Labs: Abnormal Lab Results - Last 24 Hours (Table) 12/30/23 12/30/23 12/30/23 Range/Units 17:03 17:03 17:03 Hct (34.0-46.0) % Lymphocytes # (1.0-4.8) k/uL PT 13.6 H (10.0-12.5) sec INR 1.3 H (<1.2) Sodium 136 L (137-145) mmol/L Chloride (98-107) mmol/L Carbon Dioxide (22-30) mmol/L BUN 36 H (7-17) mg/dL Glucose 183 H (74-99) mg/dL AST 43 H (14-36) U/L ALT (4-34) U/L Urine Protein Trace H (Negative) 12/31/23 12/31/23 Range/Units 06:27 06:27 Hct 48.3 H (34.0-46.0) % Lymphocytes # 0.9 L (1.0-4.8) k/uL PT (10.0-12.5) sec INR (<1.2) Sodium 135 L (137-145) mmol/L Chloride 108 H (98-107) mmol/L Carbon Dioxide 18 L (22-30) mmol/L BUN 33 H (7-17) mg/dL Glucose 113 H (74-99) mg/dL AST 53 H (14-36) U/L ALT 40 H (4-34) U/L Urine Protein (Negative) Thrombosis Risk Factor Assmnt - Choose All That Apply Any of the Below Risk Factors Present?: No Other Risk Factors: No Each Risk Factor Represents 3 Points: Age 75 years or older Thrombosis Risk Factor Assessment Total Risk Factor Score: 3 Thrombosis Risk Factor Assessment Level: Very Low Risk
[2023-12-31] MEDS: ACETAMINOPHEN TAB 325 MG TAB PO PRN (15:52)
--- NOTE | 2023-12-31 16:40 | XR ---
EXAMINATION TYPE: XR chest 2V DATE OF EXAM: 12/31/2023 4:28 PM COMPARISON: Chest radiographs from 07/30/2023. CLINICAL INDICATION: Female, 78 years old with history of CHF; shortness of breath. TECHNIQUE: XR chest 2V Frontal and lateral views of the chest. FINDINGS: Lungs/Pleura: No evidence of focal consolidation or pneumothorax. Blunting of the costophrenic angles is present. Pulmonary vascularity: Pulmonary vascular congestion. Heart/mediastinum: Cardiomediastinal silhouette is enlarged and stable. Two lead cardiac conduction d evice overlying the left hemithorax with lead tips projecting over the right ventricle and right atri um. Musculoskeletal: No acute osseous pathology. Other findings: None Lines/Tubes: IMPRESSION: Cardiomegaly, pulmonary vascular congestion and bilateral pleural effusions. Correlate with BNP for c ongestive heart failure. [facility], , 12/31/2023 4:38 PM
[2023-12-31] MEDS: FUROSEMIDE 10 MG/ML 4 ML VIAL IV STA (20:34)
--- NOTE | 2024-01-01 13:51 | P.PN ---
Subjective Progress Note Date: 01/01/24 Reason for Consult (text): Atrial fibrillation History of present illness: This is a 78-year-old female patient of Dr. Perez with past medical history of paroxysmal atrial fibrillation, permanent pacemaker, valvular heart disease with aortic stenosis and regurgitation and mitral regurgitation and tricuspid regurgitation, pulmonary hypertension, nonischemic cardiomyopathy. We have been asked to evaluate the patient for A-fib with RVR. Patient was last seen in the office on 09/23/2023 at which time she discussed aortic valve replacement but she wanted to wait until she came back from [place]. Patient apparently came back yesterday and came directly to the hospital. She states that she felt onset of atrial fibrillation on Friday. She states she develops weak legs could hardly walk and her heart rate is elevated. She denies any lower extremity edema but feels like her abdomen is bloated. She does have some shortness of breath and continue to have shortness of breath now. She states with that she is atrial fibrillation she can only walk about 25 steps but when she is out of atrial fibrillation she can walk 4 miles daily. She does not usually experience dizziness or lightheadedness otherwise. No chest pain or chest pressure. She has a follow-up appointment with Dr. Perez on 01/12 to talk about plan to repair or replace valve. Blood pressure 133/68, heart rate 75, pulse ox 91% on 4 L nasal cannula. Telemetry is paced rhythm with underlying atrial fibrillation. Patient is seen today in the emergency center waiting for bed on the cardiac stepdown unit. She has status post Cardizem 10 mg IV followed by Cardizem drip. EKG: #1 atrial fibrillation 119 bpm, #2 atrial fibrillation 90 bpm Laboratory studies: WBC 7.9, hemoglobin 15.3. Sodium 135, potassium 4.8, BUN 33 and creatinine 0.83. Troponins negative x 3. proBNP 4530. Home cardiac medications: Magnesium 800 mg daily as needed, Eliquis 5 mg twice daily, Lasix 20 mg daily, lisinopril 2.5 mg daily, metoprolol tartrate 25 mg 3 times daily. Cardioversion 08/18/2023, successful. Cardiac catheterization 04/30/2022 revealed mild nonobstructive coronary artery disease. Echocardiogram performed 04/29/2023 revealed EF of 40%, moderate MR, mild , severe TR, severe pulmonary hypertension, severe AR. Dual-chamber pacemaker implantation Heshammisael 01/25/2017 Exercise tolerance test 06/05/2023 with fair exercise tolerance, no symptoms of angina, no dysrhythmias, nondiagnostic electrocardiographic stress test secondary to baseline EKG abnormalities. 12/31 Patient remains in atrial fibrillation with rate control running about 100. Blood pressure 116/67, pulse ox 94% on 3 L nasal cannula. Yesterday, patient was started on Cardizem CD120 as well as his home beta-pari and Eliquis. Echocardiogram is pending. Physical examination: Gen: This is a 78-year-old thin female in no acute respiratory distress. VS: reviewed HEENT: Head is atraumatic, normocephalic. Pupils equal, round. Sclerae is anicteric. NECK: Supple. No JVD. LUNGS: Clear to auscultation. No wheezes or rhonchi. No intercostal retractions. HEART: Irregular rate and rhythm. Systolic and diastolic murmur. ABDOMEN: Soft No tenderness. EXTREMITIES: No pedal edema. No calf tenderness. NEUROLOGICAL: Patient is awake, alert and oriented x3. Assessment: Paroxysmal atrial fibrillation presenting with RVR, currently controlled rate History of permanent pacemaker Aortic stenosis and regurgitation, mitral regurgitation, tricuspid regurgitation Pulmonary hypertension Nonischemic cardiomyopathy Plan: Resume patient's home cardiac medications: Eliquis 5 mg twice daily, Lasix 20 mg daily, lisinopril 2.5 mg daily, metoprolol tartrate 25 mg 3 times daily Continue patient on new medication: Cardizem CD 120 mg daily Obtain 2-D echocardiogram and Doppler report If echocardiogram is unremarkable, patient is cleared for discharge from cardiology and will follow-up in the office with Dr. Perez is scheduled. Nurse practitioner note has been reviewed, I agree with documented findings and plan of care. Patient was seen and examined. Objective - Vital Signs Vital signs: Vital Signs Temp 98.3 F 01/01/24 03:34 Pulse 80 01/01/24 03:34 Resp 20 01/01/24 03:34 BP 122/67 01/01/24 03:34 Pulse Ox 92 L 01/01/24 03:34 FiO2 Intake & Output 12/31/23 01/01/24 01/01/24 18:59 06:59 18:59 Intake Total 480 118 Output Total 200 1350 300 Balance -200 -870 -182 Weight 49.3 kg Intake: Oral 480 118 Output: Urine 200 1350 300 Other: Voiding Method Toilet # Voids 3 1 1 - Labs CBC & Chem 7: 12/31/23 06:27 12/31/23 06:27
[2024-01-01 14:15] VITALS: BMI 20.5
--- NOTE | 2024-01-01 15:09 | P.PN ---
Progress Note - Text Progress Note Date: 01/01/24 Chief Complaint: Short of breath This is a pleasant 78-year-old patient, follows with Dr. Thayer. 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 Kimbrough macular degeneration. Patient presents with shortness of breath for about 4 days. Patient has a di agnosis of atrial fibrillation since 2014. August of this year had undergone cardioversion. Found to be in A-fib with rapid ventricular rate initially was put on IV Cardizem drip. This morning put on p.o. Cardizem. No chest pain or pressure follows with enterprise services manager Dr. Perez December 31: Patient given Lasix last night for shortness of breath. Checks x- ray shows pulm edema. Will give IV Lasix 40 mg x 2 doses. Remains in atrial fibrillation. Rate controlled. On Cardizem CD and Lopressor. Patient up in a chair. Active Medications Acetaminophen (Acetaminophen Tab 325 Mg Tab) 650 mg PO Q4HR PRN PRN Reason: Fever and/ or Pain Last Admin: 12/31/23 22:59 Dose: 650 mg Apixaban (Apixaban 5 Mg Tab) 5 mg PO BID [facility]; Protocol Last Admin: 01/01/24 08:56 Dose: 5 mg Ascorbic Acid (Ascorbic Acid 500 Mg Tab) 500 mg PO DAILY [facility] Last Admin: 01/01/24 08:57 Dose: 500 mg Cholecalciferol (Cholecalciferol 25 Mcg (1000 Iu) Tablet) 75 mcg PO DAILY [facility] Last Admin: 01/01/24 08:57 Dose: 75 mcg Diltiazem HCl (Diltiazem Cd 120 Mg Cap.Er.24h) 120 mg PO DAILY [facility] Last Admin: 01/01/24 08:57 Dose: 120 mg Furosemide (Furosemide 40 Mg Tab) 40 mg PO DAILY [facility] Furosemide (Furosemide 10 Mg/Ml 4 Ml Vial) 40 mg IV Q8H [facility] Stop: 01/01/24 21:01 Hydromorphone HCl (Hydromorphone 2 Mg/Ml 1 Ml Syringe) 1 mg IVP Q3HR PRN PRN Reason: Severe Pain (Scale 7 to 10) Lactobacillus Acidophilus (Lactobacillus Acidophilus/Pect 1 Each Capsule) 1 each PO BID [facility] Last Admin: 01/01/24 08:57 Dose: 1 each Lisinopril (Lisinopril 2.5 Mg Tab) 2.5 mg PO DAILY [facility] Last Admin: 01/01/24 08:57 Dose: 2.5 mg Metoprolol Tartrate (Metoprolol Tartrate 25 Mg Tab) 25 mg PO TID@0800,1600,2300 [facility] Last Admin: 01/01/24 08:57 Dose: 25 mg Multivitamins/Minerals (Vit A,C & Z-Nyyzdn-Vbqqgvww 1 Each Tab) 1 each PO BID [facility] Last Admin: 01/01/24 08:56 Dose: 1 each Naloxone HCl (Naloxone 0.4 Mg/Ml 1 Ml Vial) 0.2 mg IV Q2M PRN PRN Reason: Opioid Reversal Ondansetron HCl (Ondansetron 4 Mg/2 Ml Vial) 4 mg IVP Q8HR PRN PRN Reason: Nausea And Vomiting Social history: Lives alone. Denies any alcohol or smoking history. Physical examination: VITAL SIGNS: 97.4, 107, 18, 116 x 67, 94% on 3 L GENERAL: Up in a chair, not in distress EYES: Pupils equal. Conjunctiva clifford l. HEENT: External appearance of nose and ears normal, oral cavity grossly normal. Decreased hearing NECK: JVD not raised; masses not palpable. HEART: Heart sounds irregular; no edema. LUNGS: Respiratory rate normal; increased breath sounds ABDOMEN: Soft, nontender, liver spleen not palpable, no masses palpable. PSYCH: Alert and oriented x3; mood and affect clifford l. MUSCULOSKELETAL:No Clubbing/cyanosis;muscles-grossly intact. OA INVESTIGATIONS, reviewed in the clinical context: December 31, 2023: White count 7.9 hemoglobin 15.3 platelets 195 sodium 135 potassium 4.8 BUN 33 creatinine 0.83 Troponin I less than 0.02 x 3 EKG tracing personally reviewed by me-atrial fibrillation. Left bundle branch block. Rate 119 2D echocardiogram [April 29, 2023] EF 40%. Moderate MR. Severe TR. Severe pulmonary hypertension. Severe AR. Cardiac catheterization [April 2022] mild nonobstructive CAD Assessment plan: -Persistent atrial fibrillation rapid ventricular rate. Was started on IV Cardizem overnight. This morning we switched her to Cardizem CD 120 mg a day. Home dose of Lopressor 25 3 times daily to continue. Eliquis -Hard of hearing -Acute on chronic congestive heart failure exacerbation from systolic dysfunction nonischemic cardiomyopathy EF 40%, precipitated by A-fib.: Uncontrolled Chest x-ray shows pulm edema IV Lasix 40 mg every 8. Fluid restriction -Moderate mitral regurgitation, severe tricuspid regurgitation, severe aortic regurgitation -Severe secondary pulmonary hypertension -Essential hypertension Lopressor. Cardizem -Primary osteoarthritis Tylenol as needed -Colonic diverticulosis, asymptomatic -Chronic kidney disease stage IIIa Follows with Dr. Kimbrough outpatient -Pacemaker 2016 -Full code IV Lasix 40 mg every 8-2 doses. Fluid restriction. Follow labs. Past Medical History Past Medical History: Atrial Fibrillation, CVA/TIA, Eye Disorder, Hearing Disorder / Deafness, Hypertension, Osteoarthritis (OA), Renal Disease, Skin Disorder Additional Past Medical History / Comment(s): tinnitus, diverticular disease, hemorrhoids, kidney stones, anemia,hx CVA-no residual, leaky aortic severe & mitral valve mild,3rd heart valve leaking, left bundle branch block, tachy-chase syndrome, vertigo-no current problems, stage 3A kidney disease-sees Dr. Kimbrough, macular degeneration left eye. small hiatal hernia History of Any Multi-Drug Resistant Organisms: None Reported Past Surgical History: Adenoidectomy, Appendectomy, Section, Pacemaker, Tonsillectomy Additional Past Surgical History / Comment(s): SINUS SURGERY,3 c-sections, CHRISTY/cardioversion, colonoscopy Past Anesthesia/Blood Transfusion Reactions: No Reported Reaction Additional Past Anesthesia/Blood Transfusion Reaction / Comment(s): no problems with prior blood transfusion,no known family hx of problems with anesthesia Type of Cardiac Device: Permanent Pacemaker Device Placement Date:: 01/2017 Left chest Smoking Status: Never smoker
[2024-01-01] MEDS: FUROSEMIDE 10 MG/ML 4 ML VIAL IV SCH (17:23)
--- NOTE | 2024-01-01 17:29 | CA ---
Transthoracic Echo Report Name: Jenise Kent Age: 78 Gender: F : 1945 Exam Date: 01/01/2024 09:57 Exam Location: [place] [facility] Ht (in): 61 Wt (lb): 100 Ordering Physician: Bety Lucas Attending/Referring Phys: [id number], Shayy Theater Technician Samara Meyers RDCS Procedure CPT: Indications: LVF Cardiac Hx: Technical Quality: Good Contrast 1: Total Dose (mL): Contrast 2: Total Dose (mL): MEASUREMENTS (Male / Female) Normal Values 2D ECHO Aortic Root Diameter 3.3 cm LV Diastolic Volume MOD BP 54.6 cm??? 67 - 155 / 56 - 104 cm??? LV Systolic Volume MOD BP 29.1 cm??? 22 - 58 / 19 - 49 cm??? LV Ejection Fraction MOD BP 46.7 % >= 55 % LV Cardiac Index MOD BP 1573.1 cm???/min???m??? LV Diastolic Volume MOD 4C 40.6 cm??? LV Systolic Volume MOD 4C 25.7 cm??? LV Ejection Fraction MOD 4C 36.6 % LV Cardiac Index MOD 4C 916.1 cm???/min???m??? LV Diastolic Length 4C 5.6 cm LV Systolic Length 4C 5.7 cm LV Diastolic Volume MOD 2C 61.4 cm??? LV Systolic Volume MOD 2C 34.6 cm??? LV Ejection Fraction MOD 2C 43.6 % LV Cardiac Index MOD 2C 1651.0 cm???/min???m??? LV Diastolic Length 2C 6.8 cm LV Systolic Length 2C 6.6 cm LA Volume 72.7 cm??? 18 - 58 / 22 - 52 cm??? LA Volume Index 52.2 cm???/m??? 16 - 28 cm???/m??? M-MODE Aortic Root Diameter MM 2.5 cm LA Systolic Diameter MM 3.9 cm LA Ao Ratio MM 1.6 AV Cusp Separation MM 1.4 cm DOPPLER AV Peak Velocity 171.8 cm/s AV Peak Gradient 11.8 mmHg AV Mean Velocity 132.1 cm/s AV Mean Gradient 7.4 mmHg AV Velocity Time Integral 32.3 cm AI Peak Velocity 489.3 cm/s AI Peak Gradient 95.7 mmHg AI Pressure Half Time 533.7 ms LVOT Peak Velocity 95.3 cm/s LVOT Peak Gradient 3.6 mmHg LVOT Velocity Time Integral 17.0 cm TR Peak Velocity 279.6 cm/s TR Peak Gradient 31.3 mmHg Right Ventricular Systolic Press 45.6 mmHg FINDINGS Left Ventricle Left ventricular ejection fraction is estimated at 30-35 %. Left ventricular wall thickness normal. Left ventricular cavity size normal. Moderately reduced global left ventricular systolic function. Right Ventricle Mild right ventricular dilatation. Moderate pulmonary hypertension. Right Atrium Severe right atrial dilatation. Catheter/pacemaker wire in the right atrial cavity. Left Atrium Severe left atrial dilatation. Mitral Valve Structurally normal mitral valve. [id number] mitral regurgitation. No mitral stenosis. Aortic Valve Trileaflet aortic valve. Diffuse thickening (sclerosis) of the aortic valve cusps without reduced excursion. Severe aortic regurgitation. Tricuspid Valve Structurally normal tricuspid valve. Moderate tricuspid regurgitation. No tricuspid stenosis. Pulmonic Valve Structurally normal pulmonic valve. Trace pulmonic regurgitation. No pulmonic stenosis. Pericardium Left pleural effusion. Aorta Normal size aortic root and proximal ascending aorta. CONCLUSIONS Moderate to severe LV systolic dysfunction with an ejection fraction of 30-35% Moderate pulmonary hypertension Moderate to severe mitral regurgitation Severe aortic regurgitation Moderate tricuspid regurgitation Previewed by: Dr. Josiah Haney MD (Electronically Signed) Final Date: 01 January 2024 17:28
[2024-01-02] MEDS: FUROSEMIDE 10 MG/ML 4 ML VIAL IV SCH ×2 (03:04→15:04)
[2024-01-02 07:53] VITALS: RESP 16
[2024-01-02 09:01] LABS: African American GFR (CKD) 66 (>60 ml/min/1.73 sqM); Anion Gap 9 mmol/L; Blood Urea Nitrogen 29 mg/dL (7-17); Calcium 9.4 mg/dL (8.4-10.2); Carbon Dioxide 30 mmol/L (22-30); Chloride 100 mmol/L (98-107); Glucose 161 mg/dL (74-99); Non-African American GFR(CKD) 57 (>60 ml/min/1.73 sqM); Potassium 4.3 mmol/L (3.5-5.1); Sodium 139 mmol/L (137-145)
[2024-01-02] MEDS: FUROSEMIDE 40 MG TAB PO SCH (09:10)
[2024-01-02 11:48] VITALS: BP 128/76; PULSE 92; TEMP 97.8
[2024-01-02] MEDS: METOPROLOL TARTRATE 50 MG TAB PO STA (11:54)
--- NOTE | 2024-01-02 12:10 | P.PN ---
Subjective Progress Note Date: 01/02/24 Reason for Consult (text): Atrial fibrillation History of present illness: This is a 78-year-old female patient of Dr. Perez with past medical history of paroxysmal atrial fibrillation, permanent pacemaker, valvular heart disease with aortic stenosis and regurgitation and mitral regurgitation and tricuspid regurgitation, pulmonary hypertension, nonischemic cardiomyopathy. We have been asked to evaluate the patient for A-fib with RVR. Patient was last seen in the office on 09/23/2023 at which time she discussed aortic valve replacement but she wanted to wait until she came back from [place]. Patient apparently came back yesterday and came directly to the hospital. She states that she felt onset of atrial fibrillation on Friday. She states she develops weak legs could hardly walk and her heart rate is elevated. She denies any lower extremity edema but feels like her abdomen is bloated. She does have some shortness of breath and continue to have shortness of breath now. She states with that she is atrial fibrillation she can only walk about 25 steps but when she is out of atrial fibrillation she can walk 4 miles daily. She does not usually experience dizziness or lightheadedness otherwise. No chest pain or chest pressure. She has a follow-up appointment with Dr. Perez on 01/12 to talk about plan to repair or replace valve. Blood pressure 133/68, heart rate 75, pulse ox 91% on 4 L nasal cannula. Telemetry is paced rhythm with underlying atrial fibrillation. Patient is seen today in the emergency center waiting for bed on the cardiac stepdown unit. She has status post Cardizem 10 mg IV followed by Cardizem drip. EKG: #1 atrial fibrillation 119 bpm, #2 atrial fibrillation 90 bpm Laboratory studies: WBC 7.9, hemoglobin 15.3. Sodium 135, potassium 4.8, BUN 33 and creatinine 0.83. Troponins negative x 3. proBNP 4530. Home cardiac medications: Magnesium 800 mg daily as needed, Eliquis 5 mg twice daily, Lasix 20 mg daily, lisinopril 2.5 mg daily, metoprolol tartrate 25 mg 3 times daily. Cardioversion 08/18/2023, successful. Cardiac catheterization 04/30/2022 revealed mild nonobstructive coronary artery disease. Echocardiogram performed 04/29/2023 revealed EF of 40%, moderate MR, mild , severe TR, severe pulmonary hypertension, severe AR. Dual-chamber pacemaker implantation AlinOlafmisael 01/25/2017 Exercise tolerance test 06/05/2023 with fair exercise tolerance, no symptoms of angina, no dysrhythmias, nondiagnostic electrocardiographic stress test secondary to baseline EKG abnormalities. 12/31 Patient remains in atrial fibrillation with rate control running about 100. Blood pressure 116/67, pulse ox 94% on 3 L nasal cannula. Yesterday, patient was started on Cardizem CD120 as well as his home beta-pari and Eliquis. Echocardiogram is pending. 01/01 Cardiogram reveals EF of 30 to 35% which is a progression from previous. Her breathing today is stable. Her heart rate is up to 120s with activity this morning. She appears to be mostly asymptomatic right now. Blood pressure 110/76, pulse ox 99% on room air. Patient denies shortness of breath this morning. Physical examination: Gen: This is a 78-year-old thin female in no acute respiratory distress. VS: reviewed HEENT: Head is atraumatic, normocephalic. Pupils equal, round. Sclerae is anicteric. NECK: Supple. No JVD. LUNGS: Clear to auscultation. No wheezes or rhonchi. No intercostal retractions. HEART: Irregular rate and rhythm. Systolic and diastolic murmur. ABDOMEN: Soft No tenderness. EXTREMITIES: No pedal edema. No calf tenderness. NEUROLOGICAL: Patient is awake, alert and oriented x3. Assessment: Paroxysmal atrial fibrillation presenting with RVR, currently controlled rate History of permanent pacemaker Aortic stenosis and regurgitation, mitral regurgitation, tricuspid regurgitation Pulmonary hypertension Nonischemic cardiomyopathy Plan: Continue cardiac medications: Eliquis 5 mg twice daily, Lasix 20 mg daily, lisinopril 2.5 mg daily Discontinue Cardizem due to low EF Increase metoprolol tartrate to 75 mg 3 times daily Patient is cleared for discharge from cardiology and will follow-up in the office with Dr. Perez as scheduled. Nurse practitioner note has been reviewed, I agree with documented findings and plan of care. Patient was seen and examined. Objective - Vital Signs Vital signs: Vital Signs Temp 98.1 F 01/02/24 07:52 Pulse 122 H 01/02/24 07:52 Resp 16 01/02/24 07:52 BP 110/76 01/02/24 07:52 Pulse Ox 99 01/02/24 07:52 FiO2 Intake & Output 01/01/24 01/02/24 01/02/24 18:59 06:59 18:59 Intake Total 354 120 Output Total 300 2400 Balance 54 -2400 120 Weight 49.3 kg 49.6 kg Intake: Oral 354 120 Output: Urine 300 2400 Other: Voiding Method Toilet # Voids 1 - Labs CBC & Chem 7: 12/31/23 06:27 01/02/24 07:50 Labs: Abnormal Lab Results - Last 24 Hours (Table) 01/02/24 Range/Units 07:50 BUN 29 H (7-17) mg/dL Glucose 161 H (74-99) mg/dL
[2024-01-02] MEDS ORDERED: METOPROLOL TARTRATE 25 MG TAB PO SCH (16:00)
--- NOTE | 2024-01-02 19:23 | P.DS ---
Providers Date of admission: 12/30/23 20:01 Expected date of discharge: 01/02/24 Attending physician: Michael Holland Consults: 12/30/23 20:01 Consult Physician Routine Consulting Provider: Michael Perez Consult Reason/Comments: afib Do you want consulting provider notified?: Yes Primary care physician: [facility] Course: Chief Complaint: Short of breath This is a pleasant 78-year-old patient, follows with Dr. Thayer. 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 Kimbrough macular degeneration. Patient presents with shortness of breath for about 4 days. Patient has a diagnosis of atrial fibrillation since 2014. August of this year had undergone cardioversion. Found to be in A-fib with rapid ventricular rate initially was put on IV Cardizem drip. This morning put on p.o. Cardizem. No chest pain or pressure follows with ladle mechanic Dr. Perez December 31: Patient given Lasix last night for shortness of breath. Checks x- ray shows pulm edema. Will give IV Lasix 40 mg x 2 doses. Remains in atrial fibrillation. Rate controlled. On Cardizem CD and Lopressor. Patient up in a chair. January 01: Patient doing well. Breathing good. Patient is taken off Cardizem and dose of Lopressor was increased. Cleared by cardiology. Discussed with patient.. Will be discharged on oral Lasix. A-fib rate controlled Discussion and discharge planning more than 35 minutes Social history: Lives alone. Denies any alcohol or smoking history. Physical examination: VITAL SIGNS: 97.8, 92, 16, 128 x 76, 97% room air GENERAL: Comfortable EYES: Pupils equal. Conjunctiva clifford l. HEENT: External appearance of nose and ears normal, oral cavity grossly normal. Decreased hearing NECK: JVD not raised; masses not palpable. HEART: Heart sounds irregular; no edema. LUNGS: Respiratory rate normal; increased breath sounds ABDOMEN: Soft, nontender, liver spleen not palpable, no masses palpable. PSYCH: Alert and oriented x3; mood and affect clifford l. MUSCULOSKELETAL:No Clubbing/cyanosis;muscles-grossly intact. OA INVESTIGATIONS, reviewed in the clinical context: January 01: Potassium 4.3 creatinine 0.96 December 31, 2023: White count 7.9 hemoglobin 15.3 platelets 195 sodium 135 potassium 4.8 BUN 33 creatinine 0.83 Troponin I less than 0.02 x 3 EKG tracing personally reviewed by me-atrial fibrillation. Left bundle branch block. Rate 119 2D echocardiogram [April 29, 2023] EF 40%. Moderate MR. Severe TR. Severe pulmonary hypertension. Severe AR. Cardiac catheterization [April 2022] mild nonobstructive CAD Assessment plan: -Persistent atrial fibrillation rapid ventricular rate.: Now rate controlled Was started on IV Cardizem overnight. This morning we switched her to Cardizem CD 120 mg a day. Home dose of Lopressor 25 3 times daily to continue. Eliquis Today: Lopressor increased to 75 mg 3 times daily. Cardizem discontinued Follow-up outpatient with Dr. Perez -Hard of hearing -Acute on chronic congestive heart failure exacerbation from systolic dysfunction nonischemic cardiomyopathy EF 40%, precipitated by A-fib.: Improved Chest x-ray shows pulm edema IV Lasix 40 mg every 8. Fluid restriction Discharged with oral Lasix 40 mg a day -Moderate mitral regurgitation, severe tricuspid regurgitation, severe aortic regurgitation -Severe secondary pulmonary hypertension -Essential hypertension Lopressor. Cardizem -Primary osteoarthritis Tylenol as needed -Colonic diverticulosis, asymptomatic -Chronic kidney disease stage IIIa Follows with Dr. Kimbrough outpatient -Pacemaker 2017 -Full code Disposition: Home Past Medical History Past Medical History: Atrial Fibrillation, CVA/TIA, Eye Disorder, Hearing Disorder / Deafness, Hypertension, Osteoarthritis (OA), Renal Disease, Skin Disorder Additional Past Medical History / Comment(s): tinnitus, diverticular disease, hemorrhoids, kidney stones, anemia,hx CVA-no residual, leaky aortic severe & mitral valve mild,3rd heart valve leaking, left bundle branch block, tachy-chase syndrome, vertigo-no current problems, stage 3A kidney disease-sees Dr. Kimbrough, macular degeneration left eye. small hiatal hernia History of Any Multi-Drug Resistant Organisms: None Reported Past Surgical History: Adenoidectomy, Appendectomy, Section, Pacemaker, Tonsillectomy Additional Past Surgical History / Comment(s): SINUS SURGERY,3 c-sections, CHRISTY/cardioversion, colonoscopy Past Anesthesia/Blood Transfusion Reactions: No Reported Reaction Additional Past Anesthesia/Blood Transfusion Reaction / Comment(s): no problems with prior blood transfusion,no known family hx of problems with anesthesia Type of Cardiac Device: Permanent Pacemaker Device Placement Date:: 01/2017 Left chest Smoking Status: Never smoker Plan - Discharge Summary Discharge Rx Participant: No New Discharge Prescriptions: New Potassium Chloride ER [K-Dur 20] 20 meq PO DAILY #30 tab Furosemide [Lasix] 40 mg PO DAILY #60 tab Continue Vit C/E/Zn/Coppr/Lutein/Zeaxan [Preservision Areds 2 Softgel] 1 cap PO BID L.acidoph,Paracasei, B.lactis [Probiotic] 1 cap PO BID Calcium 260mg/Magnesium 119mcg/Vitamin K2/Vitamin D3 10mcg 1 tab PO DAILY Vitamin D3 40mcg 80 mcg PO DAILY Apixaban [Eliquis] 5 mg PO BID Vitamin C 650mg 1 tab PO DAILY Metoprolol Tartrate [Lopressor] 25 mg PO TID@0800,1600,2300 #180 tab Discontinued lisinopriL 2.5 mg PO DAILY Furosemide [Lasix] 20 mg PO DAILY No Action Magnesium(Unknown Dose) 800 mg PO DAILY PRN PRN Reason: deficient Curcumin Complex 400mg 1 - 2 tab PO DAILY Vitamin B-6/B-12(25mg/100mcg) 1 tab PO Q72H Illumineyes 1 tab PO DAILY Discharge Medication List Apixaban [Eliquis] 5 mg PO BID 04/24/22 [History] L.acidoph,Paracasei, B.lactis [Probiotic] 1 cap PO BID 04/25/22 [History] Vit C/E/Zn/Coppr/Lutein/Zeaxan [Preservision Areds 2 Softgel] 1 cap PO BID 04/25/22 [History] Calcium 260mg/Magnesium 119mcg/Vitamin K2/Vitamin D3 10mcg 1 tab PO DAILY 12/30/23 [History] Curcumin Complex 400mg 1 - 2 tab PO DAILY 12/30/23 [History] Illumineyes 1 tab PO DAILY 12/30/23 [History] Magnesium(Unknown Dose) 800 mg PO DAILY PRN 12/30/23 [History] Vitamin B-6/B-12(25mg/100mcg) 1 tab PO Q72H 12/30/23 [History] Vitamin C 650mg 1 tab PO DAILY 12/30/23 [History] Vitamin D3 40mcg 80 mcg PO DAILY 12/30/23 [History] Furosemide [Lasix] 40 mg PO DAILY #60 tab 01/02/24 [Rx] Metoprolol Tartrate [Lopressor] 25 mg PO TID@0800,1600,2300 #180 tab 01/02/24 [Rx] Potassium Chloride ER [K-Dur 20] 20 meq PO DAILY #30 tab 01/02/24 [Rx] Follow up Appointment(s)/Referral(s): Gino Thayer DO [Primary Care Provider] - 1-2 days Michael Perez MD [STAFF PHYSICIAN] - 1 Week Discharge Disposition: HOME SELF-CARE
== END 2024-01-02 15:32 | disposition home or self-care (01) | DRG 308 ==
LOC: EC 16:33 → 3SCARD 20:01
PROVIDERS: ADMIT Hospitalist; ATTEND Hospitalist
PROC: 3E033RZ Introduction of Antiarrhythmic into Peripheral Vein, Percutaneous Approach (ICD-10-PCS; principal; 2023-12-31)
DX: I48.19 Other persistent atrial fibrillation (principal); I50.23 Acute on chronic systolic (congestive) heart failure; I13.0 Hypertensive heart and chronic kidney disease with heart failure and stage 1 through stage 4 chronic kidney disease, or unspecified chronic kidney disease; I42.8 Other cardiomyopathies; I27.20 Pulmonary hypertension, unspecified; I08.3 Combined rheumatic disorders of mitral, aortic and tricuspid valves; H91.90 Unspecified hearing loss, unspecified ear; N18.31 Chronic kidney disease, stage 3a; K57.90 Diverticulosis of intestine, part unspecified, without perforation or abscess without bleeding; M19.91 Primary osteoarthritis, unspecified site; E78.5 Hyperlipidemia, unspecified; I44.7 Left bundle-branch block, unspecified; I25.10 Atherosclerotic heart disease of native coronary artery without angina pectoris; Z91.018 Allergy to other foods; Z86.73 Personal history of transient ischemic attack (TIA), and cerebral infarction without residual deficits; Z91.048 Other nonmedicinal substance allergy status; Z95.0 Presence of cardiac pacemaker; Z79.01 Long term (current) use of anticoagulants; Z88.8 Allergy status to other drugs, medicaments and biological substances; Z87.442 Personal history of urinary calculi
CPT/HCPCS: 36415; 71046; 80048; 80053; 81003; 83605; 83735; 83880; 84100; 84484; 85025; 85610; 85730; 93005; 93306; 96361; 96365; 96366; 96367; 96368; 96375; 99291

== ENCOUNTER 2024-01-06 22:07 | Emergency (ER) | payer MEDICARE, BC ==
[2024-01-06 22:46] LABS: Basophils % (A) 1 %; Eosinophils # (A) 0.1 k/uL (0-0.7); Eosinophils % (A) 1 %; HGB 16.6 gm/dL (11.4-16.0); Lymphocytes # (A) 1.8 k/uL (1.0-4.8); Lymphocytes % (A) 21 %; MCH 31.7 pg (25.0-35.0); MCHC 32.5 g/dL (31.0-37.0); MCV 97.4 fL (80.0-100.0); Mean Platelet Volume 8.7; Monocytes # (A) 0.5 k/uL (0-1.0); Monocytes % (A) 6 %; Neutrophils # (A) 5.9 k/uL (1.3-7.7); Neutrophils % (A) 71 %; Platelet Count 224 k/uL (150-450); RBC 5.23 m/uL (3.80-5.40); RDW 13.4 % (11.5-15.5); WBC 8.4 k/uL (3.8-10.6)
[2024-01-06 22:54] LABS: INR 1.3 (<1.2); Partial Thromboplastin Time 24.8 sec (22.0-30.0); Prothrombin Time 13.8 sec (10.0-12.5)
[2024-01-06 23:08] LABS: ALT 40 U/L (4-34); AST 47 U/L (14-36); African American GFR (CKD) 41 (>60 ml/min/1.73 sqM); Albumin 4.6 g/dL (3.5-5.0); Alkaline Phosphatase 76 U/L (38-126); Anion Gap 9 mmol/L; Blood Urea Nitrogen 43 mg/dL (7-17); Calcium 10.1 mg/dL (8.4-10.2); Carbon Dioxide 26 mmol/L (22-30); Chloride 102 mmol/L (98-107); Glucose 80 mg/dL (74-99); Magnesium 2.5 mg/dL (1.6-2.3); Non-African American GFR(CKD) 35 (>60 ml/min/1.73 sqM); Potassium 5.3 mmol/L (3.5-5.1); Sodium 137 mmol/L (137-145); Total Bilirubin 0.8 mg/dL (0.2-1.3); Total Protein 7.3 g/dL (6.3-8.2)
[2024-01-06 23:16] LABS: NT-Pro-B-Type Natriuretic Pept 4200 pg/mL
--- NOTE | 2024-01-06 23:34 | ED ---
General Adult HPI - General Chief complaint: Shortness of Breath Stated complaint: SOB Time Seen by Provider: 01/06/24 22:20 Source: patient, RN notes reviewed, old records reviewed Mode of arrival: wheelchair Limitations: no limitations - History of Present Illness Initial comments: 78-year-old female with history of atrial fibrillation and congestive heart failure presenting with dyspnea. Patient states this is worse at night and worse with lying flat. She was recently admitted with similar complaint. She had seen her cable installer repairer today who did make medication adjustments. She denies chest pain. Denies cough or fever. Denies current lower extremity edema. - Related Data Home Medications Medication Instructions Recorded Confirmed Apixaban [Eliquis] 5 mg PO BID 04/24/22 01/06/24 L.acidoph,Paracasei, B.lactis 1 cap PO BID 04/25/22 01/06/24 [Probiotic] Vit C/E/Zn/Coppr/Lutein/Zeaxan 1 cap PO BID 04/25/22 01/06/24 [Preservision Areds 2 Softgel] Calcium 260mg/Magnesium 1 tab PO DAILY 12/30/23 01/06/24 119mcg/Vitamin K2/Vitamin D3 10mcg Curcumin Complex 400mg 1 - 2 tab PO DAILY PRN 12/30/23 01/06/24 Illumineyes 1 tab PO DAILY 12/30/23 01/06/24 Magnesium(Unknown Dose) 800 mg PO DAILY PRN 12/30/23 01/06/24 Vitamin B-6/B-12(25mg/100mcg) 1 tab PO Q72H 12/30/23 01/06/24 Vitamin C 650mg 1 tab PO DAILY 12/30/23 01/06/24 Vitamin D3 40mcg 80 mcg PO DAILY 12/30/23 01/06/24 Amiodarone [Cordarone] 400 mg PO BID 01/06/24 01/06/24 Previous Rx's Medication Instructions Recorded Furosemide [Lasix] 40 mg PO DAILY #60 tab 01/02/24 Metoprolol Tartrate [Lopressor] 25 mg PO TID@0800,1600,2300 #180 01/02/24 tab Potassium Chloride ER [K-Dur 20] 20 meq PO DAILY #30 tab 01/02/24 Allergies Allergy/AdvReac Type Severity Reaction Status Date / Time strawberry Allergy Itching Verified 01/06/24 22:15 corn AdvReac lack of Verified 01/06/24 22:15 energy mold AdvReac sinuses Verified 01/06/24 22:15 Umbkuht-MAE-AbK Reductase AdvReac muscle Verified 01/06/24 22:15 Inhibitor aches and lethargy wheat AdvReac stomach Verified 01/06/24 22:15 bloats and lack of energy Yeast AdvReac sore Verified 01/06/24 22:15 throat,sinuses fungus AdvReac sinuses Uncoded 01/06/24 22:15 Review of Systems ROS Statement: Those systems with pertinent positive or pertinent negative responses have been documented in the HPI. ROS Other: All systems not noted in ROS Statement are negative. Past Medical History Past Medical History: Atrial Fibrillation, Heart Failure, CVA/TIA, Eye Disorder, Hearing Disorder / Deafness, Hyperlipidemia, Hypertension, Osteoarthritis (OA), Renal Disease, Skin Disorder Additional Past Medical History / Comment(s): SOB in the evening and through the night. Tinnitus, bilateral hearing aid use. Diverticular disease, hemorrhoids. Hx kidney stones. Anemia. 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 Stage 2 kidney disease. Macular degeneration left eye. Small hiatal hernia. History of Any Multi-Drug Resistant Organisms: None Reported Past Surgical History: Adenoidectomy, Appendectomy, Section, Pacemaker, Tonsillectomy Additional Past Surgical History / Comment(s): SINUS SURGERY, section X3, CHRISTY, colonoscopy. Past Anesthesia/Blood Transfusion Reactions: No Reported Reaction Additional Past Anesthesia/Blood Transfusion Reaction / Comment(s): Hx blood transfusion with no issues 50 yrs ago. Type of Cardiac Device: Permanent Pacemaker Device Placement Date:: 01/2017 Left chest Past Psychological History: No Psychological Hx Reported Smoking Status: Never smoker Past Alcohol Use History: None Reported Past Drug Use History: None Reported - Past Family History Sister(s) Family Medical History: Cancer Brother(s) Family Medical History: Cancer Father Family Medical History: Cancer Additional Family Medical History / Comment(s): Prostate cancer with mets to bones, colon. Mother Family Medical History: Renal Disease General Exam Limitations: no limitations General appearance: alert, in no apparent distress Head exam: Present: atraumatic, normocephalic Eye exam: Present: normal appearance, PERRL ENT exam: Present: normal exam Neck exam: Present: normal inspection. Absent: tenderness, meningismus Respiratory exam: Present: normal lung sounds bilaterally. Absent: respiratory distress, wheezes, rales, rhonchi Cardiovascular Exam: Present: regular rate, irregular rhythm GI/Abdominal exam: Present: soft. Absent: distended, tenderness, guarding, rebound Extremities exam: Present: normal inspection, normal capillary refill. Absent: pedal edema, calf tenderness Neurological exam: Present: alert, oriented X3, CN II-XII intact. Absent: motor sensory deficit Psychiatric exam: Present: normal affect, normal mood Skin exam: Present: warm, dry, intact. Absent: cyanosis, diaphoretic Course Vital Signs 01/06/24 22:12 Temperature 97.8 F Pulse Rate 95 Respiratory 24 Rate Blood Pressure 119/74 O2 Sat by Pulse 100 Oximetry Medical Decision Making - Medical Decision Making Was pt. sent in by a medical professional or institution (Dr. PA, IPHONE DEVELOPER, urgent care, hospital, or halfway...) When possible be specific @ -No Did you speak to anyone other than the patient for history (EMS, parent, family, police, friend...)? What history was obtained from this source @ -No Did you review nursing and triage notes (agree or disagree)? Why? @ -I reviewed and agree with nursing and triage notes Were old charts reviewed (outside hosp., previous admission, EMS record, old EKG, old radiological studies, urgent care reports/EKG's, halfway records)? Report findings @ -No old charts were reviewed Differential Dyspnea: Coronary syndrome, arrhythmia, tamponade, asthma, COPD, pulmonary embolism, pneumonia, pneumothorax, pulmonary effusion, anaphylaxis, diabetic ketoacidosis, flailed chest, pulmonary contusion, diaphragmatic rupture, anemia, neuromuscul ar, this is not meant to be an all-inclusive list. EKG interpreted by me (3pts min.). @A-fib with intermittent ventricular pacing left bundle branch block, rate of 83, QRS duration 135, QTc 435 X-rays interpreted by me (1pt min.). @ -[Chest x-ray shows small right-sided pleural effusion CT interpreted by me (1pt min.). @ -None done U/S interpreted by me (1pt. min.). @ -None done What testing was considered but not performed or refused? (CT, X-rays, U/S, labs)? Why? @ -None What meds were considered but not given or refused? Why? @ -None Did you discuss the management of the patient with other professionals (professionals i.e. , PA, IPHONE DEVELOPER, lab, RT, psych nurse, social service worker, operations support analyst, teacher, forward air controller/air officer, case specialist)? Give summary @ -No Was smoking cessation discussed for >3mins.? @ -No Was critical care preformed (if so, how long)? @ -No Were there social determinants of health that impacted care today? How? (Homelessness, low income, unemployed, alcoholism, drug addiction, transportation, low edu. Level, literacy, decrease access to med. care, halfway, rehab)? @ -No Was there de-escalation of care discussed even if they declined (Discuss DNR or withdrawal of care, Hospice)? DNR status @ -No What co-morbidities impacted this encounter? (DM, HTN, Smoking, COPD, CAD, Cancer, CVA, ARF, Chemo, Hep., AIDS, mental health diagnosis, sleep apnea, morbid obesity)? @Atrial fibrillation, CHF Was patient admitted / discharged? Hospital course, mention meds given and route, prescriptions, significant lab abnormalities, going to OR and other pertinent info. @78-year-old female with chief complaint of dyspnea. Patient's lungs are clear to auscultation without rales, normal breath sounds. She is in rate controlled atrial fibrillation. She has a normal CBC, normal CMP with the exception of a mild elevation in creatinine, negative troponin, stable BMP. Patient's vital signs are within normal limits without hypoxia. We discussed options including increased Lasix however given the slightly worsening renal function and normal vital signs and normal lung exam felt that this was not necessary at this time. Patient states she will contact her cable installer repairer in the morning. She will return as needed. Undiagnosed new problem with uncertain prognosis? @ -No Drug Therapy requiring intensive monitoring for toxicity (Heparin, Nitro, Insulin, Cardizem)? @ -No Were any procedures done? @ -No Diagnosis/symptom? @Dyspnea Acute, or Chronic, or Acute on Chronic? @Acute Uncomplicated (without systemic symptoms) or Complicated (systemic symptoms)? @ -Default Side effects of treatment? @ -No Exacerbation, Progression, or Severe Exacerbation? @ -No Poses a threat to life or bodily function? How? (Chest pain, USA, SC, pneumonia, PE, COPD, DKA, ARF, appy, cholecystitis, CVA, Diverticulitis, Homicidal, Suicidal, threat to staff... and all critical care pts) @ -[Low risk at this time - Lab Data Result diagrams: 01/06/24 22:01/06/24 22: Lab Results 01/06/24 01/06/24 01/06/24 Range/Units 22:28 22:: WBC 8.4 (3.8-10.6) k/uL RBC 5.23 (3.80-5.40) m/uL Hgb 16.6 H (11.4-16.0) gm/dL Hct 51.0 H (34.0-46.0) % MCV 97.4 (80.0-100.0) fL MCH 31.7 (25.0-35.0) pg MCHC 32.5 (31.0-37.0) g/dL RDW 13.4 (11.5-15.5) % Plt Count 224 (150-450) k/uL MPV 8.7 Neutrophils % 71 % Lymphocytes % 21 % Monocytes % 6 % Eosinophils % 1 % Basophils % 1 % Neutrophils # 5.9 (1.3-7.7) k/uL Lymphocytes # 1.8 (1.0-4.8) k/uL Monocytes # 0.5 (0-1.0) k/uL Eosinophils # 0.1 (0-0.7) k/uL Basophils # 0.0 (0-0.2) k/uL PT 13.8 H (10.0-12.5) sec INR 1.3 H (<1.2) APTT 24.8 (22.0-30.0) sec Sodium 137 (137-145) mmol/L Potassium 5.3 H (3.5-5.1) mmol/L Chloride 102 (98-107) mmol/L Carbon Dioxide 26 (22-30) mmol/L Anion Gap 9 mmol/L BUN 43 H (7-17) mg/dL Creatinine 1.43 H (0.52-1.04) mg/dL Est GFR (CKD-EPI)AfAm 41 (>60 ml/min/1.73 sqM) Est GFR (CKD-EPI)NonAf 35 (>60 ml/min/1.73 sqM) Glucose 80 (74-99) mg/dL Plasma Lactic Acid Vikas (0.7-2.0) mmol/L Calcium 10.1 (8.4-10.2) mg/dL Magnesium 2.5 H (1.6-2.3) mg/dL Total Bilirubin 0.8 (0.2-1.3) mg/dL AST 47 H (14-36) U/L ALT 40 H (4-34) U/L Alkaline Phosphatase 76 (38-126) U/L Troponin I (0.000-0.034) ng/mL NT-Pro-B Natriuret Pep 4200 pg/mL Total Protein 7.3 (6.3-8.2) g/dL Albumin 4.6 (3.5-5.0) g/dL 01/06/24 01/06/24 Range/Units 22:28 22:28 WBC (3.8-10.6) k/uL RBC (3.80-5.40) m/uL Hgb (11.4-16.0) gm/dL Hct (34.0-46.0) % MCV (80.0-100.0) fL MCH (25.0-35.0) pg MCHC (31.0-37.0) g/dL RDW (11.5-15.5) % Plt Count (150-450) k/uL MPV Neutrophils % % Lymphocytes % % Monocytes % % Eosinophils % % Basophils % % Neutrophils # (1.3-7.7) k/uL Lymphocytes # (1.0-4.8) k/uL Monocytes # (0-1.0) k/uL Eosinophils # (0-0.7) k/uL Basophils # (0-0.2) k/uL PT (10.0-12.5) sec INR (<1.2) APTT (22.0-30.0) sec Sodium (137-145) mmol/L Potassium (3.5-5.1) mmol/L Chloride (98-107) mmol/L Carbon Dioxide (22-30) mmol/L Anion Gap mmol/L BUN (7-17) mg/dL Creatinine (0.52-1.04) mg/dL Est GFR (CKD-EPI)AfAm (>60 ml/min/1.73 sqM) Est GFR (CKD-EPI)NonAf (>60 ml/min/1.73 sqM) Glucose (74-99) mg/dL Plasma Lactic Acid Vikas 1.0 (0.7-2.0) mmol/L Calcium (8.4-10.2) mg/dL Magnesium (1.6-2.3) mg/dL Total Bilirubin (0.2-1.3) mg/dL AST (14-36) U/L ALT (4-34) U/L Alkaline Phosphatase (38-126) U/L Troponin I <0.012 (0.000-0.034) ng/mL NT-Pro-B Natriuret Pep pg/mL Total Protein (6.3-8.2) g/dL Albumin (3.5-5.0) g/dL Disposition Clinical Impression: Dyspnea Disposition: HOME SELF-CARE Condition: Fair Instructions (If sedation given, give patient instructions): Dyspnea (ED) Is patient prescribed a controlled substance at d/c from ED?: No Referrals: Gino Thayer DO [Primary Care Provider] - 1-2 days Michael Perez MD [STAFF PHYSICIAN] - 1-2 days Time of Disposition: 00:30
--- NOTE | 2024-01-07 00:09 | XR ---
EXAM: XR Chest, 2 Views CLINICAL HISTORY: Shortness of breath. Patient states hx of Afib and CHF. Difficulty breathing TECHNIQUE: Frontal and lateral views of the chest. COMPARISON: 12/31/2023 FINDINGS: Lungs: Suspect COPD/pulmonary emphysema. Small amount of bibasilar atelectasis. Pleural space: Small amount of small right pleural effusion. Mediastinum: Moderate cardiomegaly. Normal mediastinal contour. Bones/joints: Osteopenia. Mild upper thoracic scoliosis convexed to the right. Tubes, lines and devices: Left pacer is again noted. IMPRESSION: Small amount of small right pleural effusion. Small amount of bibasilar atelectasis and less likely pneumonia.
[2024-01-07 00:50] VITALS: BP 122/79; PULSE 101; RESP 19; TEMP 97.9
== END 2024-01-07 00:50 | disposition home or self-care (01) ==
LOC: EC 22:07
DX: R06.00 Dyspnea, unspecified (principal); I11.0 Hypertensive heart disease with heart failure; I48.91 Unspecified atrial fibrillation; I50.9 Heart failure, unspecified; Z91.018 Allergy to other foods; Z88.8 Allergy status to other drugs, medicaments and biological substances
CPT/HCPCS: 36415; 71046; 80053; 83605; 83735; 83880; 84484; 85025; 85610; 85730; 93005; 99285

== ENCOUNTER 2024-01-09 11:22 | Day surgery (SDC) | payer MEDICARE, BC ==
[2024-01-06 18:03] VITALS: BMI 18.8
[~2024-01-09 11:22] MED LIST changes: -LACTATED RINGERS 1,000 ML IV SCH; -LIDOCAINE 1% (10MG/ML) FOR IV START INTRADERMA PRN; +SODIUM CHLORIDE 0.9% 1,000 ML IV SCH
[2024-01-09 12:17] VITALS: BP 134/63; PULSE 49; RESP 18; TEMP 97.5
== END 2024-01-09 12:29 | disposition home or self-care (01) ==
LOC: OR 11:22
PROVIDERS: ATTEND Internal Medicine Interventional Cardiology
DX: I48.0 Paroxysmal atrial fibrillation (principal); Z53.9 Procedure and treatment not carried out, unspecified reason

== ENCOUNTER → 2024-01-21 | Outpatient (CLI) | payer MEDICARE, BC ==
--- NOTE | 2024-01-21 13:46 | CT ---
EXAMINATION TYPE: CT chest wo con CT DLP: 112.20 mGycm, Automated exposure control for dose reduction was used. DATE OF EXAM: 01/21/2024 1:38 PM COMPARISON: Chest radiograph 12/31/2023 CLINICAL INDICATION:Female, 78 years old with history of I71.20 THORACIC AORTIC ANEURYSM, WITHOUT RUP TURE,; PHH, pre op, leaky valves. TECHNIQUE: Multiple axial images were obtained through the chest without IV contrast. Lack of IV or o ral contrast limits evaluation of solid and hollow organ viscera. . Coronal and sagittal reformats re viewed. FINDINGS: LUNGS/ PLEURA: Trace bilateral pleural effusions. No pneumothorax. Bilateral lower lobe minimal inter lobular septal thickening. Biapical pleural-parenchymal scarring. No suspicious pulmonary nodule or m ass. AIRWAY: Patent and unremarkable.. HEART: Enlarged.Dilated right atrium. Left chest wall 2-lead cardiac pacing device with leads termina ting in the right atrium and right ventricle. MEDIASTINUM: No gross evidence of adenopathy. VASCULATURE: Ascending thoracic aortic aneurysm measuring up to 4.0 cm. Aortic root measures up to 3 .8 cm. Descending thoracic aorta measures up to 2.3 cm. Minimal atherosclerotic calcification of the aorta. MUSCULOSKELETAL: Mild disc degeneration changes are present throughout the thoracolumbar spine. No ac reno-sparks osseous abnormality. SOFT TISSUES/LYMPH NODES: Dystrophic calcifications within the left breast. LOWER NECK: No significant findings. UPPER ABDOMEN: No significant findings. IMPRESSION: 1. Ascending thoracic aortic aneurysm measuring up to 4.0 cm. 2. Cardiomegaly with trace bilateral pleural effusions and bilateral lower lobe minimal intralobular septal thickening. Findings suggest a component of CHF exacerbation. 3. Indeterminant posterior right hepatic lobe 3.8 cm hypodense lesion. May represent a hemangioma chago nalini other etiologies. Further evaluation with CT or MR abdomen liver mass protocol is recommended. [facility], , 01/21/2024 1:44 PM
--- NOTE | 2024-01-22 08:15 | US ---
EXAMINATION TYPE: US carotid duplex BILAT DATE OF EXAM: 01/21/2024 COMPARISON: NONE CLINICAL INDICATION: Female, 78 years old with history of I71.20 THORACIC AORTIC ANEURYSM, WITHOUT RU PTURE,; Additional History: .... TECHNIQUE: Grayscale, color Doppler and spectral Doppler evaluation of the bilateral carotid systems and vertebral arteries. Indirect Doppler criteria was utilized. FINDINGS: EXAM MEASUREMENTS: RIGHT: Peak Systolic Velocity (PSV) cm/sec ----- Right CCA: 46.9 ----- Right ICA: 97.4 ----- Right ECA: 43.8 ICA/CCA ratio: 2.1 RIGHT: End Diastole cm/sec ----- Right CCA: 11.6 ----- Right ICA: 26.6 ----- Right ECA: 3.2 LEFT: Peak Systolic Velocity (PSV) cm/sec ----- Left CCA: 66.2 ----- Left ICA: 83.4 ----- Left ECA: 46.1 ICA/CCA ratio: 1.3 LEFT: End Diastole cm/sec ----- Left CCA: 19.6 ----- Left ICA: 23.7 ----- Left ECA: 9.7 VERTEBRALS (direction of flow): Right Vertebral: Antegrade Left Vertebral: Antegrade Rhythm: Normal CHIEF CLERK SHELTER NOTES: No significant stenosis seen, elevated velocities possibly due to tortuous ICA Exam limited due to vessel tortuosity Color Doppler imaging shows patency with blood flow throughout the carotid artery. Spectral waveforms are within normal limits. IMPRESSION: No evidence for hemodynamically significant stenosis. Criteria for Assigning % of Stenosis / Diameter reduction (Estimation based on the indirect measurements of the internal carotid artery velocities (ICA PSV). 1. Normal (no stenosis)=ICA PSV < 125 cm/s: ratio < 2.0: ICA EDV<40 cm/s. 2. Less than 50% stenosis=ICA PSV < 125 cm/s: ratio < 2.0: ICA EDV<40 cm/s. 3. 50 to 69% stenosis=ICA PSV of 125 to 230 cm/s: ration 2.0 ? 4.0: ICA EDV 40-100 cm/s. 4. Greater than 70% stenosis to near occlusion= ICA PSV > 230 cm/s: ratio > 4.0: ICA EDV > 100 cm/s. 5. Near occlusion= ICA PSV velocities may be low or undetectable: variable ratio and ICA EDV. 6. Total occlusion=unable to detect flow. [facility], , 01/22/2024 8:13 AM
== END | disposition home or self-care (01) ==
LOC: RADCTMAIN 13:18
PROVIDERS: ATTEND Surgery
DX: I71.20 Thoracic aortic aneurysm, without rupture, unspecified (principal); I71.21 Aneurysm of the ascending aorta, without rupture; J90 Pleural effusion, not elsewhere classified; I51.7 Cardiomegaly; R55 Syncope and collapse; I70.0 Atherosclerosis of aorta
CPT/HCPCS: 71250; 93880

== ENCOUNTER 2024-02-12 08:49 | Day surgery (SDC) | payer MEDICARE, BC ==
[~2024-02-12 08:49] MED LIST changes: +ALPRAZolam 0.25 MG TAB PO PRN; +ALPRAZolam 0.5 MG TAB PO PRN; +NITROGLYCERIN SL TABS 0.4 MG TAB SUBLINGUAL PRN; -SODIUM CHLORIDE 0.9% 1,000 ML IV SCH
[2024-02-12] MEDS: SODIUM CHLORIDE 0.9% 1,000 ML in EMPTY BAG 1 BAG IV ONE (09:03)
[2024-02-12] MEDS: ASPIRIN 325 MG TAB PO STA (09:04)
[2024-02-12] MEDS: IV FLUID CONTINUATION 1,000 ML IV ONE (09:07)
[2024-02-12 09:35] VITALS: RESP 16; TEMP 97.4
[2024-02-12] MEDS: MIDAZOLAM 2 MG/2 ML VIAL IVP ONE (10:27)
[2024-02-12] MEDS: LIDOCAINE 1% INJ 10MG/ML (20 ML MDV) SQ ONE (10:31)
[2024-02-12] MEDS ORDERED: RX INFO: IV CONTRAST WAS GIVEN 1 EACH MISC MISCELLANE PRN (10:58)
[2024-02-12] MEDS: IOPAMIDOL-370 100ML BTL INJ ONE (11:08)
--- NOTE | 2024-02-12 11:08 | P.PCN ---
Date of Procedure: 02/12/24 Operative Findings: CARDIAC CATHETERIZATION PERFORMING PHYSICIAN: Michael Perez MD, RPVI PROCEDURE PERFORMED: 1. Selective right and left coronary angiogram and aortic root angiogram 2. Left heart catheterization and right heart catheterization 3. Ultrasound-guided access of the right common femoral artery selective right common femoral artery angiogram INDICATION: The patient is a 79-year-old female patient was diagnosed with diffuse cardiomyopathy and severe aortic regurgitation she is going to undergo an aortic valve replacement. COMPLICATION: None APPROACH: Right common femoral artery LEVEL OF SEDATION: Moderate with sedation in length of 26 minutes PROCEDURE DESCRIPTION: After obtaining an informed consent, the patient was brought to cardiac clinical laboratory manager. Local anesthesia was performed using lidocaine subcutaneously. The right common femoral artery was cannulated using Seldinger technique, under ultrasound guidance, the guidewire passed easily, following that we advanced a 6 Tanzanian sheath dilator assembly, the wire and dilator were removed and sheath was flushed. Selective right and left coronary angiogram using a 6-Tanzanian JR4 and JL catheters. Following that we did left heart catheterization using 6-Tanzanian pigtail catheter. Subsequently an aortic root angiogram was performed using a ball injection. Right heart catheterization was performed using a [place] catheter. The procedure was completed there was no complication. SELECTIVE CORONARY ANGIOGRAM: The right coronary artery: Large-caliber vessel and a dominant vessel and appears to be angiographically normal and distally bifurcates into PDA and PLV branches Left main: Is angiographically normal and short left main bifurcates into an LCx and LAD The left circumflex: Large caliber vessel nondominant vessel appears to be angiographically normal The left anterior descending artery: Large caliber vessel appears to be also angiographically normal and gives rise into a large diagonal branch which seems to be normal HEMODYNAMICS: The pulmonary capillary wedge pressure was 23 mm yissel PA pressures were as follows systolic of 31 and diastolic of 16 and mean of 25 mmHg The right ventricular pressures were as follows systolic of 32 mmHg with end diastolic pressure of 4 mmHg The right atrial pressure was 8 mmHg Cardiac output was 2.24 L/min with a cardiac index of 1.58 L/min/m Transpulmonary gradient was 2 mmHg Pulmonary vascular resistance was 0.82 Wood units The aortic root angiogram Was performed in the MARIANELA projection and using a power injection and showed 4+ aortic insufficiency CONCLUSION: 1. Normal coronary angiogram 2. Elevated left-sided filling pressure and normal right-sided filling pressure 3. Mild pulmonary hypertension secondary to WHO group 2 with normal pulmonary vascular resistance 4. 4+ aortic insufficiency POSTPROCEDURE MANAGEMENT: The patient is going to undergo an open heart surgery
[2024-02-12] MEDS: HEPARIN SODIUM,PORCINE 10,000 UNIT in SODIUM CHLORIDE 0.9% 1,000 ML IRRIGATION PRN (11:09)
[2024-02-12] MEDS: HEPARIN SODIUM,PORCINE (1 ML) 2,500 UNIT in SODIUM CHLORIDE 0.9% 250 ML IRRIGATION PRN (11:09)
[2024-02-12 11:14] LABS: Basophils % (A) 1 %; Eosinophils # (A) 0.1 k/uL (0-0.7); Eosinophils % (A) 1 %; HCT 45.4 % (34.0-46.0); Lymphocytes # (A) 0.8 k/uL (1.0-4.8); Lymphocytes % (A) 15 %; MCH 31.8 pg (25.0-35.0); MCV 96.3 fL (80.0-100.0); Mean Platelet Volume 10.4; Monocytes # (A) 0.3 k/uL (0-1.0); Monocytes % (A) 6 %; Neutrophils # (A) 4.2 k/uL (1.3-7.7); Neutrophils % (A) 76 %; Platelet Count 181 k/uL (150-450); RBC 4.72 m/uL (3.80-5.40); RDW 13.5 % (11.5-15.5); WBC 5.5 k/uL (3.8-10.6)
[2024-02-12] MEDS: SODIUM CHLORIDE 0.9% 1,000 ML IV SCH (11:15)
[2024-02-12 11:24] LABS: African American GFR (CKD) 42 (>60 ml/min/1.73 sqM); Anion Gap 8 mmol/L; Blood Urea Nitrogen 41 mg/dL (7-17); Calcium 9.7 mg/dL (8.4-10.2); Carbon Dioxide 27 mmol/L (22-30); Chloride 101 mmol/L (98-107); Glucose 99 mg/dL (74-99); Non-African American GFR(CKD) 37 (>60 ml/min/1.73 sqM); Sodium 136 mmol/L (137-145)
[2024-02-12] MEDS: hydrALAZINE HCL 20 MG/ML 1 ML VIAL IVP STA (12:19)
[2024-02-12] MEDS: hydrALAZINE HCL 20 MG/ML 1 ML VIAL IM STA (12:24)
[2024-02-12 17:26] VITALS: BP 133/57; PULSE 54
[2024-02-12] MEDS: ACETAMINOPHEN TAB 325 MG TAB PO PRN (17:33)
== END 2024-02-12 19:30 | disposition home or self-care (01) ==
LOC: CATHCVL 08:49 → 6NMEDSUR 12:54 → CATHCVL 19:30
PROVIDERS: ATTEND Internal Medicine Interventional Cardiology
DX: I35.1 Nonrheumatic aortic (valve) insufficiency (principal); I42.9 Cardiomyopathy, unspecified; I27.20 Pulmonary hypertension, unspecified; I42.8 Other cardiomyopathies; I48.0 Paroxysmal atrial fibrillation; I38 Endocarditis, valve unspecified; Z79.899 Other long term (current) drug therapy
CPT/HCPCS: 93460; 93567; 80048; 85025; J2250; J0360; J2003; Q9967

== ENCOUNTER 2024-02-27 06:44 | Day surgery (SDC) | payer MEDICARE, BC ==
[~2024-02-27 06:44] MED LIST changes: -ALPRAZolam 0.25 MG TAB PO PRN; -ALPRAZolam 0.5 MG TAB PO PRN; +BENZOCAINE SPRAY 1 CAN TOPICAL PRN; +MIDAZOLAM 2 MG/2 ML VIAL IV PRN; -NITROGLYCERIN SL TABS 0.4 MG TAB SUBLINGUAL PRN; +fentaNYL (PF) 50 MCG/ML 2 ML AMP IVP PRN
[2024-02-27 07:09] VITALS: TEMP 97.7
[2024-02-27] MEDS: IV FLUID CONTINUATION 1,000 ML IV ONE (07:09)
[2024-02-27] MEDS ORDERED: SODIUM CHLORIDE 0.9% 500 ML 500 ML IV SCH (07:15)
[2024-02-27] MEDS: BENZOCAINE SPRAY 1 EACH MM ONE ×2 (08:01→08:03)
[2024-02-27] MEDS: fentaNYL (PF) 50 MCG/ML 2 ML AMP IVP ONE (08:03)
[2024-02-27] MEDS: MIDAZOLAM 2 MG/2 ML VIAL IVP ONE (08:03)
[2024-02-27 08:07] VITALS: PULSE 50
[2024-02-27 08:18] VITALS: RESP 18
[2024-02-27 10:07] VITALS: BP 192/58
[2024-02-27 10:27] LABS: Basophils % (A) 1 %; Eosinophils # (A) 0.1 k/uL (0-0.7); Eosinophils % (A) 1 %; HCT 44.5 % (34.0-46.0); HGB 14.2 gm/dL (11.4-16.0); Hypochromasia Slight; Lymphocytes # (A) 0.9 k/uL (1.0-4.8); Lymphocytes % (A) 14 %; MCH 31.3 pg (25.0-35.0); MCHC 31.8 g/dL (31.0-37.0); MCV 98.4 fL (80.0-100.0); Mean Platelet Volume 9.4; Monocytes # (A) 0.3 k/uL (0-1.0); Monocytes % (A) 5 %; Neutrophils # (A) 4.8 k/uL (1.3-7.7); Neutrophils % (A) 78 %; Platelet Count 139 k/uL (150-450); RBC 4.53 m/uL (3.80-5.40); RDW 13.4 % (11.5-15.5); WBC 6.2 k/uL (3.8-10.6)
[2024-02-27 10:43] LABS: African American GFR (CKD) 50 (>60 ml/min/1.73 sqM); Anion Gap 6 mmol/L; Blood Urea Nitrogen 35 mg/dL (7-17); Calcium 9.2 mg/dL (8.4-10.2); Carbon Dioxide 31 mmol/L (22-30); Chloride 103 mmol/L (98-107); Glucose 154 mg/dL (74-99); Non-African American GFR(CKD) 43 (>60 ml/min/1.73 sqM); Sodium 140 mmol/L (137-145)
--- NOTE | 2024-02-27 19:22 | P.PCN ---
Date of Procedure: 02/27/24 Operative Findings: TRANSESOPHAGEAL ECHOCARDIOGRAM ENVIRONMENTAL CHANGE ANALYST: KIM KAUR MD, RPVI INDICATION: Valvular heart disease SEDATION: Conscious sedation COMPLICATION: None LEVEL OF SEDATION This PROCEDURE DESCRIPTION: After obtaining an informed consent, the patient was brought to transesophageal echocardiogram room. Pulse oximetry and heart monitors were attached to the patient. The patient throat was sprayed using lidocaine. The patient was turned into left lateral position. After that a bite guard was placed. After an appropriate conscious sedation was initiated, the transesophageal echocardiogram was advanced through a bite guard into the mid esophagus. A 2-D echocardiogram images, color Doppler images, continuous wave images, pulse-wave images, of various cardiac structure were performed. After that the transesophageal echocardiogram probe was advanced into the stomach and fixed to obtain transgastric view was. The probe was brought into the mid esophagus. Inter-atrial septum was interrogated using 2D images, color Doppler images, and then contrast study. After that transesophageal echocardiogram was withdrawn out and upon withdrawing the descending thoracic aorta all the way up to the arch was evaluated. CONCLUSION: 1. Trileaflet aortic valve with severe aortic regurgitation and evidence of reversal of flow in the descending aorta 2. Mildly thickened anterior and posterior mitral leaflet with moderate mitral regurgitation 3. Moderate tricuspid regurgitation 4. Intact left atrial appendage and intact interatrial 5. Impaired LV function with EF around 40% 6. Severe biatrial enlarged 7. An echodensity was noted on the pacer lead in the right atrium. Rule out vegetation. Blood culture will be ordered 8. No pericardial effusion
== END 2024-02-27 11:13 | disposition home or self-care (01) ==
LOC: CATHCVL 06:44
PROVIDERS: ATTEND Internal Medicine Interventional Cardiology
DX: I08.3 Combined rheumatic disorders of mitral, aortic and tricuspid valves (principal); I48.0 Paroxysmal atrial fibrillation; I42.8 Other cardiomyopathies; I77.819 Aortic ectasia, unspecified site; Z95.0 Presence of cardiac pacemaker; Z79.01 Long term (current) use of anticoagulants; Z79.899 Other long term (current) drug therapy
CPT/HCPCS: 93312; 93320; 93325; 84134; 80048; 85025; 87040; 87070; 99152; J2250; J3010

== ENCOUNTER → 2024-03-01 | Outpatient (CLI) | payer MEDICARE, BC ==
--- NOTE | 2024-03-01 08:18 | US ---
EXAMINATION TYPE: US abdomen complete DATE OF EXAM: 03/01/2024 COMPARISON: CT chest 01/21/2024 CLINICAL INDICATION: Female, 79 years old with history of N18.9 KIDNEY DISEASES; ? Liver shadow seen on prior imaging; Hx Appendectomy; Patient denies any other signs, symptoms, or relevant history TECHNIQUE: Grayscale and color Doppler imaging of the abdomen was performed. FINDINGS: EXAM MEASUREMENTS: Liver Length: 14.7 cm Gallbladder Wall: 0.1 cm CBD: 0.2 cm, color Doppler imaging was utilized to isolate the common bile duct for measurement. Spleen: 8.3 cm Right Kidney: 10.9 x 4.5 x 4.3 cm Left Kidney: 9.6 x 3.6 x 4.1 cm Pancreas: Possible 2.1 cm rounded prominence at the level of the pancreatic body/tail. Liver: Isoechoic / hypoechoic circumscribed area seen superolateral mid lobe = 3.4 x 2.5 x 3.4 cm, s imilar compared to 01/21/2024 Gallbladder: wnl Evidence for sonographic Garduno's sign: No CBD: wnl Spleen: wnl Right Kidney: wnl Left Kidney: wnl Upper IVC: wnl Abd Aorta: wnl IMPRESSION: 1. Indeterminate 3.4 cm lesion posterior right hepatic dome appears relatively similar compared to CT chest 01/21/2024. Recommend further workup/characterization with liver CT/MRI. 2. 2.1 cm rounded prominence at the level of the pancreatic body/tail. The patient liver CT/MRI can e xclude an underlying subtle pancreatic mass here. 3. No gallstones or biliary ductal dilatation. [facility], , 03/01/2024 8:16 AM
== END | disposition home or self-care (01) ==
LOC: RADUSWWP 07:32
PROVIDERS: ATTEND Family Medicine
DX: N18.9 Chronic kidney disease, unspecified (principal)
CPT/HCPCS: 76700

== ENCOUNTER → 2024-03-08 | Outpatient (CLI) | payer MEDICARE, BC ==
--- NOTE | 2024-03-08 13:08 | CT ---
EXAMINATION TYPE: CT abdomen pelvis w con DATE OF EXAM: 03/08/2024 12:21 PM COMPARISON: CT 01/21/2024, ultrasound 03/01/2024 CLINICAL INDICATION: Female, 79 years old with history of K86.89 Other specific disease of the pancre as, Abnormal chest CT. prior open heart surgery. TECHNIQUE: Axial images were obtained from above the diaphragm to the pubic rami in the axial plane a t 5 mm thick sections. Reconstructed images are reviewed on the computer in the coronal plane. CONTRAST: 80ml mL of Isovue 300. Study performed with Oral Contrast DLP: 314 mGycm, Automated exposure control for dose reduction was used. FINDINGS: Limited CT sections are obtained the lung bases. The lung bases are clear. CT ABDOMEN: Liver: There appears to be a low-density structure adjacent to the liver may be a hepatic cyst automotive quality manager ior right lobe liver. This was present 01/21/2024. Spleen: Normal Pancreas: Normal. Pancreatic head mass ultrasound is not clearly identified. Adrenal glands: The adrenal glands are normal. Gallbladder: Normal Kidneys: No masses are evident. No hydronephrosis is present. No cysts are present. Delayed images were obtained through the kidneys, which remain unremarkable. Aorta: Vascular calcification is within the aorta. Inferior vena cava: Normal. CT PELVIS: Loops of bowel within the abdomen and pelvis are normal. There are loops of bowel which are incom pletely distended or lack oral contrast limiting their evaluation. Appendix: Not identified. No dilated tubular structures or inflammatory change is evident. Urinary bladder: Normal. Genitourinary structures: Uterus and ovaries appear unremarkable Osseous structures: No suspicious lytic or sclerotic lesions. IMPRESSION: 1. Nonspecific low density structure posterior right lobe liver. Hepatic cyst or diaphragmatic colle ction. 2. Previous ultrasound abnormality at the pancreatic head is not identified on the CT exam. 3. Given these indeterminant findings, recommend contrast MRI of the abdomen to evaluate the area wit hin or adjacent to the liver and diaphragm and evaluate the pancreatic head. [facility], , 03/08/2024 1:06 PM
== END | disposition home or self-care (01) ==
LOC: RADCTMAIN 10:19
PROVIDERS: ATTEND Family Medicine
DX: K86.89 Other specified diseases of pancreas (principal); K76.89 Other specified diseases of liver
CPT/HCPCS: 74177; Q9967

== ENCOUNTER → 2024-03-18 | Outpatient (CLI) | payer MEDICARE, BC ==
--- NOTE | 2024-03-18 15:02 | MM ---
Reason for Exam: Screening (asymptomatic). Last mammogram was performed 1 year(s) and 4 month(s) ago. Patient History: Menarche at age 14. First Full-Term at age 22. Postmenopausal. Patient used Hormonal Contraceptives for 4 years. Cyst Aspiration on the Right side. Cyst Aspiration on the Right side. Cyst Aspiration on the Right side. Cyst Aspiration on the Left side. Cyst Aspiration on the Left side. Cyst Aspiration on the Left side. Cyst Aspiration on the Left side. Excisional Biopsy on the Right side. Sister had breast cancer, age 57. Risk Values: Palma 5 year model risk: 3.9%. NCI Lifetime model risk: 6.9%. Prior Study Comparison: 10/27/2020 Bilateral Screening Mammogram, [facility]. 10/30/2021 Bilateral MG 3D screening mammo w/cad, [facility]. 11/01/2022 Bilateral MG 3D screening mammo w/cad, [facility]. Tissue Density: The breasts are heterogeneously dense, which may obscure small masses. Findings: Analyzed By CAD. Generator device overlying the left pectoralis. Bilateral benign vascular calcifications. Benign oil cyst calcifications on the left. There is no suspicious group of microcalcifications or new suspicious mass in either breast. Overall Assessment: Benign, BI-RAD 2 Management: Screening Mammogram of both breasts in 1 year. See note below in regards to patient's increased 5 year Palma score. Patient should continue monthly self-breast exams. A clinical breast exam by your physician is recommended on an annual basis. This exam should not preclude additional follow-up of suspicious palpable abnormalities. Note on Palma scores and lifetime risk: 1. A Palma score greater than 3% is considered moderate risk. If this is the case, consider specialist referral to assess eligibility for a risk reducing agent. 2. If overall lifetime risk for the development of breast cancer is 20% or higher, the patient may qualify for future screening with alternating mammogram and breast MRI. [facility], , 03/18/2024 2:59 PM. Electronically signed and approved by: Norma Bhakta M.D. Radiologist
== END | disposition home or self-care (01) ==
LOC: RADMAMWWP 14:18
PROVIDERS: ATTEND Family Medicine
DX: Z12.31 Encounter for screening mammogram for malignant neoplasm of breast (principal); R92.333 Mammographic heterogeneous density, bilateral breasts; Z80.3 Family history of malignant neoplasm of breast; Z78.0 Asymptomatic menopausal state
CPT/HCPCS: 77063; 77067

== ENCOUNTER → 2024-04-27 | Outpatient (CLI) | payer MEDICARE, BC ==
[2024-04-27 10:17] LABS: Partial Thromboplastin Time 23.5 sec (22.0-30.0)
--- NOTE | 2024-04-27 12:12 | XR ---
EXAMINATION TYPE: XR chest 2V DATE OF EXAM: 04/27/2024 12:00 PM COMPARISON: Chest radiographs from 01/06/2024 CLINICAL INDICATION: Female, 79 years old with history of I35.0 AORTIC (VALVE) STENOSIS I34.0 MITRAL (VALVE); [facility] TECHNIQUE: XR chest 2V Frontal and lateral views of the chest. FINDINGS: Lungs/Pleura: There is flattening of the diaphragm with increased lucency of the lungs. No evidence o f pneumothorax, pleural effusion or focal consolidation. Pulmonary vascularity: Unremarkable. Heart/mediastinum: Cardiomediastinal silhouette is unremarkable. Two lead cardiac conduction device o verlying the left hemithorax with lead tips projecting over the right ventricle and right atrium. Musculoskeletal: No acute osseous pathology. Other findings: None IMPRESSION: 1. No acute cardiopulmonary disease process. 2. COPD changes. [facility], , 04/27/2024 12:10 PM
--- NOTE | 2024-04-27 12:27 | US ---
EXAMINATION TYPE: US vein mapping BILAT DATE OF EXAM: 04/27/2024 11:25 AM COMPARISON: NONE CLINICAL INDICATION: Female, 79 years old with history of I35.0 AORTIC (VALVE) STENOSIS I34.0 MITRAL (VALVE); Pre-OP Surgery, Preop- Cardiac Surgery TECHNIQUE: Grayscale and color Doppler imaging of the lower extremity venous system. SIDE PERFORMED: Bilateral FINDINGS: DUPLEX FINDINGS: Greater Saphenous: Color flow seen Measurements in mm: Right Greater Saphenous: Groin: 4.6 x 4.8 mm High Thigh: 2.0 x 1.8 mm Mid Thigh: 2.0 x 1.7 mm Above Knee: 1.8 x 1.6 mm Knee: 1.4 x 1.3 mm Below Knee: 1.4 x 1.4 mm Mid Calf: 1.9 x 2.2 mm At Ankle: 1.8 x 3.0 mm Left Greater Saphenous: Groin: 3.8 x 4.2 mm High Thigh: 2.1 x 2.0 mm Mid Thigh: 1.8 x 1.8 mm Above Knee: 1.6 x 1.7 mm Knee: 1.8 x 2.0 mm Below Knee: 1.0 x 1.4 mm Mid Calf: 1.9 x 2.3 mm At Ankle: 1.6 x 2.1 mm IMPRESSION: 1. No evidence for occlusion. 2. GSV measurements listed above. 3. Performing surgeon to determine viability as conduit. [facility], , 04/27/2024 12:25 PM
--- NOTE | 2024-04-27 12:28 | US ---
EXAMINATION TYPE: US arterial LE single level DATE OF EXAM: 04/27/2024 11:47 AM COMPARISONS: None. CLINICAL INDICATION: Female, 79 years old with history of I35.0 AORTIC (VALVE) STENOSIS I34.0 MITRAL (VALVE); Pre-OP Surgery TECHNIQUE: Systolic pressures were taken of the upper and lower extremity arteries with ankle-brachia l indices and toe brachial indices calculated bilaterally. FINDINGS: Doppler Waveforms: Right: Biphasic Left: Triphasic posterior tibial and biphasic dorsalis pedis artery. Brachial Artery systolic pressure: Right: 129 Left: 131 Posterior Tibial artery systolic pressure: Right: 163 Left: 144 Dorsalis Pedis artery systolic pressure: Right: 141 Left: 161 Ankle-Brachial Indices: Right: 1.2 Left: 1.2 (Normal > 0.6; Mild 0.35 - 0.59, Moderate 0.12 - 0.34, Severe <0.12) IMPRESSION: PERNELL: Right: Normal 0.9 - 1.4, Recommendation: None Left: Normal 0.9 - 1.4, Recommendation: None [facility], , 04/27/2024 12:25 PM
--- NOTE | 2024-04-27 14:30 | P.PN ---
Progress Note - Text Progress Note Date: 04/27/24 5 meter walk test completed without difficulty: #1 3.13 sec #2 3.38 sec #3 2.48 sec CFS 3 STS risk score calculated and discussed with the patient.
[2024-04-27 16:47] LABS: HCT 46.2 % (37.2-46.3); HGB 14.5 g/dL (12.0-15.0); Hepatitis A Antibody IgM Nonreactive (Nonreactive); Hepatitis B Core IgM Nonreactive (Nonreactive); Hepatitis B Surface Antigen Nonreactive (Nonreactive); Hepatitis C IgG Antibody Nonreactive (Nonreactive); MCH 30.5 pg (27.0-32.0); MCHC 31.4 g/dL (32.0-37.0); MCV 97.1 FL (80.0-97.0); Mean Platelet Volume 11.8 FL (9.5-12.2); NRBC Per 100 WBC 0 X 10*3/uL (0.00-0.01); Platelet Count 210 X 10*3/uL (140-440); RBC 4.76 X 10*6/uL (4.10-5.20); WBC 5.13 X 10*3/uL (4.50-10.00)
[2024-04-27 17:10] LABS: Chol/HDL Ratio 2.11 Ratio; LDL Cholesterol,Calculated 89.1 mg/dL (0.0-131.0); Magnesium 2.5 mg/dL (1.5-2.4); VLDL Calculation 10.86 mg/dL (5.00-40.00)
[2024-04-27 17:11] LABS: ALT 29 U/L (8-44); AST 30 U/L (13-35); Albumin 4.3 g/dL (3.8-4.9); Albumin/Globulin Ratio 1.59 Ratio (1.60-3.17); Alkaline Phosphatase 129 U/L (41-126); BUN/Creat Ratio 21.92 Ratio (12.00-20.00); Blood Urea Nitrogen 28.5 mg/dL (9.0-27.0); Calcium 9.8 mg/dL (8.7-10.3); Carbon Dioxide 29.7 mmol/L (21.6-31.8); Chloride 104 mmol/L (96-109); Globulin 2.7 g/dL (1.6-3.3); Glucose 80 mg/dL (70-110); Potassium 4.7 mmol/L (3.5-5.5); Sodium 142 mmol/L (135-145); Total Bilirubin 0.4 mg/dL (0.3-1.2)
[2024-04-27 18:57] LABS: Appearance,Urine Cloudy (Clear); Bilirubin,Urine Negative (Negative); Blood,Urine Negative (Negative); Color,Urine Yellow (Yellow); Ketones,Urine Trace (Negative); Nitrite,Urine Negative (Negative); Specific Gravity,Urine 1.024 (1.001-1.030)
[2024-04-27 20:38] LABS: Bacteria,Urine None Seen (None Seen); Calcium Oxalate Crystals,Urine Present (None Seen)
== END | disposition home or self-care (01) ==
LOC: LABWHC1 09:14
PROVIDERS: ATTEND Surgery
DX: I35.0 Nonrheumatic aortic (valve) stenosis (principal); I34.0 Nonrheumatic mitral (valve) insufficiency
CPT/HCPCS: 36415; 71046; 80053; 80061; 80074; 81001; 83036; 83735; 84443; 85027; 85610; 85730; 86850; 86900; 86901; 86920; 87070; 87086; 93922; 93970; 94150

== ENCOUNTER 2024-05-03 05:37 | Inpatient (IN) | payer MEDICARE, BC ==
[~2024-05-03 05:37] MED LIST changes: -BENZOCAINE SPRAY 1 CAN TOPICAL PRN; +CARDIOPLEGIC SOLN (K+ 16 MEQ/L 1,000 ML with SODIUM BICARB (1 MEQ/ML) 20 ML, LIDOCAINE ... PERFUSION ONE; -MIDAZOLAM 2 MG/2 ML VIAL IV PRN; +NOREPINEPHRINE 4 MG in SODIUM CHLORIDE 0.9% 250 ML IV ONE; +PHENYLEPHRINE 10 MG/ML VIAL IV ONE; +PHENYLEPHRINE 40 MG in SODIUM CHLORIDE 0.9% 250 ML IV ONE; +PROTAMINE SULFATE 10 MG/ML 25 ML VIAL IV ONE; +PROTAMINE SULFATE 250 MG in EMPTY BAG 1 BAG IV ONE; +SODIUM BICARB 8.4% 50 ML SYR (1 MEQ/ML) IV ONE; +SODIUM CHLORIDE 0.9% 1,000 ML IV ONE; +TRANEXAMIC ACID 2,000 MG in SODIUM CHLORIDE 0.9% 80 ML IV ONE; -fentaNYL (PF) 50 MCG/ML 2 ML AMP IVP PRN; +propofoL 1,000 MG/100 ML VIAL IV ONE
[2024-05-03] MEDS: METOPROLOL TARTRATE 12.5 MG TAB PO ONE (06:09)
[2024-05-03 06:20] LABS: Glucose,Whole Blood 96 mg/dL (70-110)
[2024-05-03] MEDS: IV FLUID CONTINUATION 1,000 ML IV ONE (06:23)
[2024-05-03] MEDS: LACTATED RINGERS 1,000 ML IV ONE (06:24)
[2024-05-03] MEDS: ATORVASTATIN 10 MG TAB PO ONE (06:53)
[2024-05-03] MEDS ORDERED: MIDAZOLAM HCL 10 MG/10 ML VIAL ONE (08:21)
[2024-05-03] MEDS ORDERED: VECURONIUM 10 MG VIAL IV ONE (08:21)
[2024-05-03] MEDS ORDERED: ALBUMIN HUMAN 5% (25gm) 500 ML VIAL IVPB ONE (08:21)
[2024-05-03] MEDS ORDERED: PROPOFOL 10 MG/ML 20 ML VIAL IV ONE (08:21)
[2024-05-03] MEDS ORDERED: INSULIN REGULAR 100 UNIT/ML VIAL (IV) ONE (08:21)
[2024-05-03] MEDS ORDERED: LIDOCAINE 2% SYG (PF) 100 MG/5 ML ONE (08:21)
[2024-05-03] MEDS ORDERED: fentaNYL (PF) 50 MCG/ML 50 ML VIAL ONE (08:21)
[2024-05-03] MEDS ORDERED: TRANEXAMIC 1,000 MG/100ML-NACL PREMIX BAG ONE (08:21)
[2024-05-03] MEDS ORDERED: PROTAMINE SULFATE 10 MG/ML 25 ML VIAL IV ONE (08:21)
[2024-05-03] MEDS ORDERED: HEPARIN SODIUM,PORCINE 10,000 UNIT/ML 1 ML VIAL ONE (08:21)
[2024-05-03] MEDS ORDERED: CALCIUM CHLORIDE 100 MG/ML 10 ML SYRINGE ONE (08:21)
[2024-05-03 08:38] LABS: ABG Glucose Whole Blood 92 mg/dL (75-99); ABG HCO3 30 mmol/L (21-25); ABG Hematocrit 35 % (34.0-46.0); ABG Ionized Calcium 5.1 mg/dL (4.5-5.3); ABG Oxygen Saturation 70.4 % (94-97); ABG PCO2 57 mmHg (35-45); ABG PH 7.33 (7.35-7.45); ABG Potassium Whole Blood 4.4 mmol/L (3.4-4.5); ABG Sodium Whole Blood 142 mmol/L (135-146); ABG TCO2 28 mmol/L (19-24); Allen Test Performed? Yes
[2024-05-03 08:40] LABS: Allen Test Performed? Yes
[2024-05-03 08:41] LABS: ABG Base Excess 1.3 mmol/L; ABG Glucose Whole Blood 90 mg/dL (75-99); ABG HCO3 27 mmol/L (21-25); ABG Hematocrit 35 % (34.0-46.0); ABG Lactic Acid Whole Blood 1.6 mmol/L (0.5-1.6); ABG Oxygen Saturation 97.7 % (94-97); ABG PCO2 49 mmHg (35-45); ABG PH 7.36 (7.35-7.45); ABG PO2 267 mmHg (83-108); ABG Potassium Whole Blood 4.4 mmol/L (3.4-4.5); ABG Sodium Whole Blood 141 mmol/L (135-146); ABG TCO2 25 mmol/L (19-24)
[2024-05-03] MEDS ORDERED: VASOPRESSIN 20 UNIT in SODIUM CHLORIDE 0.9% 50 ML IV ONE (09:30)
[2024-05-03 09:49] LABS: ABG Base Excess 2.3 mmol/L; ABG Glucose Whole Blood 101 mg/dL (75-99); ABG HCO3 27 mmol/L (21-25); ABG Hematocrit 32 % (34.0-46.0); ABG Ionized Calcium 4.8 mg/dL (4.5-5.3); ABG Lactic Acid Whole Blood 1.3 mmol/L (0.5-1.6); ABG Oxygen Saturation 97.7 % (94-97); ABG PCO2 41 mmHg (35-45); ABG PH 7.43 (7.35-7.45); ABG PO2 279 mmHg (83-108); ABG Potassium Whole Blood 4.4 mmol/L (3.4-4.5); ABG Sodium Whole Blood 140 mmol/L (135-146); ABG TCO2 25 mmol/L (19-24); Allen Test Performed? Yes
[2024-05-03] MEDS: ceFAZolin 1,000 MG in SODIUM CHLORIDE 0.9% 1,000 ML IRRIGATION ONE (09:50)
[2024-05-03] MEDS: SODIUM CHLORIDE 0.9% 500 ML 500 ML with HEPARIN SODIUM,PORCINE (1 ML) 5,000 UNIT IV ONE (09:50)
[2024-05-03 10:12] LABS: ABG Base Excess 5.6 mmol/L; ABG Glucose Whole Blood 111 mg/dL (75-99); ABG HCO3 28 mmol/L (21-25); ABG Ionized Calcium 3.8 mg/dL (4.5-5.3); ABG Lactic Acid Whole Blood 1.6 mmol/L (0.5-1.6); ABG Oxygen Saturation 99.3 % (94-97); ABG PCO2 32 mmHg (35-45); ABG Sodium Whole Blood 141 mmol/L (135-146); ABG TCO2 27 mmol/L (19-24); Allen Test Performed? Yes
[2024-05-03 10:39] LABS: ABG Glucose Whole Blood 260 mg/dL (75-99); ABG HCO3 29 mmol/L (21-25); ABG Ionized Calcium 3.7 mg/dL (4.5-5.3); ABG Oxygen Saturation 99.4 % (94-97); ABG PCO2 28 mmHg (35-45); ABG Sodium Whole Blood 140 mmol/L (135-146); ABG TCO2 27 mmol/L (19-24); Allen Test Performed? Yes
[2024-05-03 11:17] LABS: ABG Base Excess 4.7 mmol/L; ABG Glucose Whole Blood 117 mg/dL (75-99); ABG HCO3 29 mmol/L (21-25); ABG Ionized Calcium 3.8 mg/dL (4.5-5.3); ABG Oxygen Saturation 99.2 % (94-97); ABG PCO2 40 mmHg (35-45); ABG PH 7.47 (7.35-7.45); ABG PO2 382 mmHg (83-108); ABG Potassium Whole Blood 6.1 mmol/L (3.4-4.5); ABG Sodium Whole Blood 143 mmol/L (135-146); ABG TCO2 28 mmol/L (19-24); Allen Test Performed? Yes
[2024-05-03 11:51] LABS: ABG Base Excess 3.8 mmol/L; ABG Glucose Whole Blood 78 mg/dL (75-99); ABG HCO3 28 mmol/L (21-25); ABG Ionized Calcium 3.8 mg/dL (4.5-5.3); ABG Oxygen Saturation 99.2 % (94-97); ABG PCO2 40 mmHg (35-45); ABG PH 7.46 (7.35-7.45); ABG PO2 390 mmHg (83-108); ABG Sodium Whole Blood 143 mmol/L (135-146); ABG TCO2 27 mmol/L (19-24); Allen Test Performed? Yes
[2024-05-03 12:15] LABS: ABG Base Excess 3.1 mmol/L; ABG Glucose Whole Blood 76 mg/dL (75-99); ABG HCO3 27 mmol/L (21-25); ABG Ionized Calcium 3.9 mg/dL (4.5-5.3); ABG Oxygen Saturation 99.3 % (94-97); ABG PCO2 39 mmHg (35-45); ABG PH 7.45 (7.35-7.45); ABG PO2 353 mmHg (83-108); ABG Potassium Whole Blood 6.1 mmol/L (3.4-4.5); ABG Sodium Whole Blood 142 mmol/L (135-146); ABG TCO2 27 mmol/L (19-24); Allen Test Performed? Yes
[2024-05-03 12:49] LABS: ABG PO2 40 mmHg (83-108)
[2024-05-03 12:51] LABS: ABG Hematocrit 21 % (34.0-46.0); ABG PH 7.56 (7.35-7.45); ABG PO2 >420 mmHg (83-108); ABG Potassium Whole Blood 6.3 mmol/L (3.4-4.5)
[2024-05-03 12:53] LABS: ABG Hematocrit 20 % (34.0-46.0); ABG Lactic Acid Whole Blood 3.7 mmol/L (0.5-1.6)
[2024-05-03 12:54] LABS: ABG Hematocrit 21 % (34.0-46.0); ABG Lactic Acid Whole Blood 3.9 mmol/L (0.5-1.6); ABG Potassium Whole Blood 6.2 mmol/L (3.4-4.5)
[2024-05-03 12:55] LABS: ABG Hematocrit 20 % (34.0-46.0); ABG Lactic Acid Whole Blood 4.1 mmol/L (0.5-1.6)
[2024-05-03 13:06] LABS: ABG Base Excess 1.5 mmol/L; ABG Glucose Whole Blood 97 mg/dL (75-99); ABG HCO3 25 mmol/L (21-25); ABG Hematocrit 27 % (34.0-46.0); ABG Ionized Calcium 4.4 mg/dL (4.5-5.3); ABG Oxygen Saturation 98.5 % (94-97); ABG PCO2 35 mmHg (35-45); ABG PH 7.46 (7.35-7.45); ABG PO2 123 mmHg (83-108); ABG Potassium Whole Blood 4.5 mmol/L (3.4-4.5); ABG Sodium Whole Blood 143 mmol/L (135-146); ABG TCO2 24 mmol/L (19-24); Allen Test Performed? Yes
[2024-05-03 13:34] LABS: ABG Lactic Acid Whole Blood 3.4 mmol/L (0.5-1.6)
[2024-05-03] MEDS ORDERED: hydrALAZINE HCL 20 MG/ML 1 ML VIAL IVP PRN (14:00)
[2024-05-03] MEDS ORDERED: MORPHINE SULFATE 2 MG/ML SYRINGE IVP PRN (14:00)
[2024-05-03] MEDS ORDERED: Potassium Replacement Protocol 1 EACH MISC MISCELLANE PRN (14:00)
[2024-05-03] MEDS ORDERED: ALBUMIN HUMAN 5% 250 ML in EMPTY BAG 1 BAG IVPB PRN (14:00)
[2024-05-03] MEDS ORDERED: DEXMEDETOMIDINE/0.9% NACL(PMX) 400 MCG in EMPTY BAG 1 BAG IV SCH (14:00)
[2024-05-03] MEDS ORDERED: DEXTROSE 50% SYRINGE 50 ML IVP PRN (14:00)
[2024-05-03] MEDS ORDERED: Magnesium Replacement Protocol 1 EACH MISC MISCELLANE PRN (14:00)
[2024-05-03] MEDS ORDERED: CALCIUM GLUCONATE IN NACL 2 GM in SALINE 1 100ML.BAG IVPB PRN (14:00)
[2024-05-03 14:11] LABS: Glucose,Whole Blood 69 mg/dL (70-110)
--- NOTE | 2024-05-03 14:21 | P.ANPRN ---
Procedure Note - Anesthesia - Invasive Line Right Central Line Time Out Performed: Yes Date of Procedure: 05/03/24 Location of Patient: PreOp Preparation: Sterile Prep, Sterile Dressing Central Line Location: Internal Jugular Ultrasound Used: Yes Purpose - Visualization and Identification of Vasculature: Yes Image Stored and Saved: Yes Narrative: Invasive line placement per sterile protocol utilized. Informed consent obtained.Right Internal jugular vein cannulated under aseptic p recautions. 3cc 1% lidocaine infiltrated initially after cleaning with iodine based prep and draping. Ultrasound used to locate the vein and Seldinger technique used. 9Fr introduced sheath inserted and after the finding the needle with fire pilot needle/catheter. The introducer sheath was sutured in place. After the insertion of PA Catheter the insertion site was dressed with biopatch and tegaderm. Patient tolerated the procedure well. Right [place] Kip Time Out Performed: Yes Date of Procedure: 05/03/24 Location of Patient: PreOp Preparation: Sterile Prep, Sterile Dressing [place] Kip Line Location: Internal Jugular Narrative: Invasive line placement per sterile protocol utilized. 8Ff PA catheter threaded through the Right IJ introducer sheath under asepsis with continuous waveform monitoring. Catheter at 50 cms yissel. - CHRISTY Intraop Pre Bypass CHRISTY Intraop - Anesthesia Indication: aortic valve replacement, mitral valve repair Date of Procedure: 05/03/24 Pre-operative Diagnosis: severe aortic regurgitation, mitral regurgitation Post-operative Diagnosis: same + status post aortic valve and a mitral ring. Surgeon: Bautista Hammond Ejection Fraction: Other (40%) Regional Wall Motion Abnormalities: Other (global hypokinesia) Left Ventricle Hypertrophy: No R. Ventricle Function: Normal Aortic Valve: peak gradient 15 mm of hg and mean 7 mm of Hg Anatomy: Trileaflet Aortic Stenosis: None Aortic Regurgitation: Severe Mitral Stenosis: None Mitral Regurgitation: Moderate (mild to moderate mitral regurgitation, central jet noted.) Tricuspid Regurgitation: Moderate ([id number] tricuspid regurgitation noted.) Pulmonic Stenosis: None Pulmonic Regurgitation: Mild R. Atrial Dilation: Yes R. Atrial PFO: No Left Atrium: normal left atrial appendage clot seen. L. Atrial Dilation: Yes Aortic Dissection: No Aortic Calcification: None Plural Effusion: None - CHRISTY Intraop Post Bypass CHRISTY Intraop Post Bypass Procedure Performed: aortic valve replacement, mitral valve ring. Ejection Fraction: Other (40%) Regional Wall Motion Abnormalities: Other (global hypokinesia noted.) R. Ventricle Function: Normal Aortic Valve: prosthetic aortic valve noted. Appears to be seated well. No paravalvular leak seen. Mean gradient across the valve is 2 mm of Hg and peak gradient is 3 mm of Hg. Mitral Valve: mitral ring seen. Appears to be seated well. No significant gradient noted across the valve. Tricuspid: Unchanged Pulmonic: Unchanged Aortic Dissection: No
[2024-05-03 14:22] LABS: ABG Base Excess 2.6 mmol/L; ABG HCO3 24 mmol/L (21-25); ABG Oxygen Saturation 98.8 % (94-97); ABG PCO2 27 mmHg (35-45); ABG PO2 259 mmHg (83-108); ABG TCO2 25 mmol/L (19-24)
[2024-05-03 14:27] LABS: ABG PH 7.57 (7.35-7.45); Allen Test Performed? no
[2024-05-03 14:31] LABS: Glucose,Whole Blood 42 mg/dL (70-110)
[2024-05-03 14:31] LABS: INR 1.6 (<1.2); Partial Thromboplastin Time 49.8 sec (22.0-30.0); Prothrombin Time 16.6 sec (10.0-12.5)
[2024-05-03] MEDS: DEXTROSE 50% SYRINGE 50 ML IVP PRN (14:31)
--- NOTE | 2024-05-03 14:32 | XR ---
EXAMINATION TYPE: XR chest 1V portable DATE OF EXAM: 05/03/2024 CLINICAL INDICATION: Female, 79 years old with history of Post Operative Cardiac Surgery, progress st udy. TECHNIQUE: Single AP portable upright view of the chest is obtained. COMPARISON: Chest x-ray from 6 days earlier FINDINGS: There is new endotracheal tube terminating at aortic knob level approximately 4 cm above t he sakina. There is new orogastric tube projecting below diaphragm. There is new right internal jugul ar Shelby-Kip catheter terminating at the level of the pulmonary outflow tract. There is new mediastin al drainage catheter. There are overlying Sternal wires and left atrial appendage clip along with met allic aortic valve. More prominent cardiomegaly with new central vascular congestion and small bilateral pleural effusion s is appreciated. No pneumothorax seen bilaterally. Osseous structures are intact. IMPRESSION: 1. Tubes and lines as discussed above are satisfactory in position. 2. More prominent cardiomegaly with central vascular congestion and small bilateral pleural effusions is consistent with fluid overload state. [facility], , 05/03/2024 2:30 PM
[2024-05-03 14:33] LABS: Basophils % (A) 0 %; Eosinophils % (A) 1 %; HCT 26.7 % (34.0-46.0); Lymphocytes % (A) 16 %; MCH 31.2 pg (25.0-35.0); MCHC 32.3 g/dL (31.0-37.0); MCV 96.8 fL (80.0-100.0); Mean Platelet Volume 9.2; Monocytes # (A) 0.3 k/uL (0-1.0); Monocytes % (A) 5 %; Neutrophils # (A) 4.8 k/uL (1.3-7.7); Neutrophils % (A) 78 %; RBC 2.76 m/uL (3.80-5.40); RDW 13.6 % (11.5-15.5); WBC 6.2 k/uL (3.8-10.6)
[2024-05-03 14:34] LABS: HGB 8.6 gm/dL (11.4-16.0); Ionized Calcium 4.3 mg/dL (4.5-5.3)
[2024-05-03] MEDS: SODIUM CHLORIDE 0.9% 1,000 ML IV SCH (14:40)
[2024-05-03] MEDS: MILRINONE-D5W PMX 20 MG in DEXTROSE/WATER 1 100ML.BAG IV SCH (14:41)
[2024-05-03] MEDS: ASPIRIN 325 MG TAB PO ONE (14:42)
[2024-05-03] MEDS: ALBUMIN HUMAN 25% 50 ML IV ONE (14:42)
[2024-05-03] MEDS: ALBUMIN HUMAN 5% 500 ML IVPB ONE (14:42)
[2024-05-03] MEDS: ceFAZolin 1,000 MG in SODIUM CHLORIDE 0.9% IRRIGATIO 1,000 ML IRRIGATION ONE (14:43)
[2024-05-03] MEDS: CHLORHEXIDINE GLUCONATE 15 ML CUP MUCOUS MEM ONE (14:43)
[2024-05-03] MEDS: CALCIUM CHLORIDE 100 MG/ML 10 ML SYRINGE IV ONE (14:43)
[2024-05-03] MEDS: CLEVIDIPINE BUTYRATE 25 MG in EMPTY BAG 1 BAG IV ONE (14:43)
[2024-05-03] MEDS: ELECTROLYTE-A SOLUTION 1,000 ML with POTASSIUM CHLORIDE 100 MEQ, MAGNESIUM SULFATE 16 M... IV ONE (14:44)
[2024-05-03] MEDS: HEPARIN SODIUM 1,000 UN/ML (10ML VL) IV ONE (14:44)
[2024-05-03] MEDS: ELECTROLYTE-A SOLUTION 1,000 ML with POTASSIUM CHLORIDE 40 MEQ, MAGNESIUM SULFATE 16 ME... IV ONE (14:44)
[2024-05-03] MEDS: HEPARIN SODIUM,PORCINE (1 ML) 5,000 UNIT in SODIUM CHLORIDE 0.9% 500 ML 500 ML IV ONE (14:45)
[2024-05-03] MEDS: INSULIN REGULAR 100 UNIT in SODIUM CHLORIDE 0.9% 100 ML IV ONE (14:46)
[2024-05-03] MEDS: MAGNESIUM SULFATE 16.24 MEQ in EMPTY SYRINGE 1 SYR IV ONE (14:46)
[2024-05-03] MEDS: MANNITOL 25% 12.5 GM/50 ML VIAL IV ONE (14:47)
[2024-05-03] MEDS: MUPIROCIN 2% OINT 22 GM TUBE NASAL ONE (14:47)
[2024-05-03] MEDS: NITROGLYCERIN SL TABS 0.4 MG TAB SUBLINGUAL ONE (14:48)
[2024-05-03] MEDS: NITROGLYCERIN-D5W PMX 50 MG in DEXTROSE/WATER 1 250ML.BAG IV ONE (14:48)
[2024-05-03] MEDS: NITROGLYCERIN-D5W PMX 25 MG/250 ML BTL IV ONE (14:48)
[2024-05-03] MEDS: NOREPINEPHRINE 4 MG in SODIUM CHLORIDE 0.9% 250 ML IV SCH (14:49)
--- NOTE | 2024-05-03 14:54 | P.OP ---
Date of Procedure: 05/03/24 Preoperative Diagnosis: Severe aortic valve regurgitation, moderate mitral valve regurgitation, mild to moderate tricuspid valve regurgitation, mild pulmonary hypertension, moderate left ventricular dysfunction, hypertension, chronic kidney disease, paroxysmal atrial fibrillation, status post permanent dual-chamber pacemaker, history of embolic stroke with full recovery Postoperative Diagnosis: Severe aortic valve regurgitation, mild to moderate mitral valve regurgitation and mild tricuspid valve regurgitation Persistent left superior vena cava Procedure(s) Performed: 1aortic valve replacement using a 19 mm Inspiris pericardial bioprosthesis 2mitral valve repair using a posterior annuloplasty band 26 mm annuloflex 3exclusion of the left atrial appendage using a 35mm AtriClip 4transesophageal echocardiogram and epiaortic scanning Implants: 19 mm Inspiris pericardial bioprosthesis in aortic position 26 mm posterior annulus flex band in mitral position 35mm AtriClip Anesthesia: WING Surgeon: Bautista Hammond Consulting Software Engineer #1: Wli Aviles Consulting Software Engineer #2: Sascha Segura Pathology: other (Aortic valve leaflets) Condition: stable Disposition: ICU Indications for Procedure: This is a 79 years old white female with the listed comorbidities with known aortic valve regurgitation who has been evaluated by my partner Dr. Jasso for potential aortic valve replacement at some point. When I saw in consultation after an admission for congestive heart failure when she was also found to be in atrial fibrillation but eventually reverted to sinus rhythm she had a functional class II dyspnea with no swelling in the lower extremities. She had a liver mass on the CT chest that was eventually worked out with an ultrasound and felt to be benign. She has chronic kidney disease and followed by Dr. Kimbrough from nephrology and GFR of around 40. Her CHRISTY showed moderate left ventricular dysfunction, mild pulmonary hypertension, severe aortic valve regurgitation, moderate mitral valve regurgitation, mild to moderate tricuspid valve regurgitation and some fibrin strands on the pacemaker leads. Patient at this point is brought in for aortic valve replacement mitral valve repair and potentially tricuspid valve repair if the CHRISTY shows indication for that. Right heart catheter showed no pulmonary hypertension and a cardiac index of 1.5. Her left cardiac cath ruled out any significant coronary disease. The STS risk score was discussed with the in presence of her daughter. She understood it and agreed to proceed. Operative Findings: Persistent left superior vena cava Severe aortic valve regurgitation Mild to moderate mitral valve regurgitation under anesthesia Trivial tricuspid valve regurgitation Mild pulmonary hypertension Moderate left ventricular dysfunction Mildly dilated aorta Description of Procedure: Patient in supine position in the preoperative holding area right internal jugular [place] catheter and a left brachial arterial line were placed. PA pressure was 45/22 and cardiac index was 1.3. Subsequently patient was brought to the operating room where general endotracheal anesthesia was induced uneventfully. A [place] catheter was inserted. She received 2 g cefazolin intravenously. The chest abdomen both lower extremities were prepped and draped using ChloraPrep. Ioban was used to cover the skin. Transesophageal echo echocardiogram showed moderate left ventricular dysfunction, functional mild to moderate mitral valve regurgitation, mild tricuspid valve regurgitation and severe aortic valve regurgitation. Midline sternotomy was performed and the bone was quite osteoporotic. I made a small breach in the left pleura at the end of the case but was not drained. The Lizette mitral retractor was used. Mediastinal fat was transected between 2 ties and epiaortic scanning revealed any protruding atheroma in the ascending aorta. Pericardium was opened in an inverted T fashion and pericardial cradle was created. Finding included a mildly dilated aorta, and a boggy heart. There were adhesions laterally to the right atrium. After systemic heparinization after placement of respective pledgeted pursestring aortic cannulation the proximal arch with a 21 [place] slow flow cannula and venous cannulation via the right atrial appendage was done using 3 stage 29F cannula. Antegrade as well as retrograde cardioplegia catheter were placed. Cardiopulmonary bypass was initiated and patient temperature was allowed to drift down to 34 C. Subsequently the aorta was clamped and we were able to achieve arrest via the antegrade route by compressing the left ventricle as were giving antegrade cardioplegia. We failed to generate pressure in the retrograde cardioplegia catheters despite good placement and upon inspection to another the patient had a persistent left superior vena cava. This cava was looped with a Silastic loop and even despite that we could not generate good pressure in the retrograde cardioplegia delivery system despite changing the catheter to a 15 [place] from 13 [place]. For that reason I decided to proceed with direct ostial cardioplegia administration. The aorta was opened around correction across its anterior circumference 1 cm above the sinotubular junction. The left main and the right coronary artery ostia were identified. We gave an additional 250 cc in each ostium. All additional doses were given again directly through the respective ostia. The last dose was given via the antegrade route once the aorta was closed. We started by excluding the left atrial appendage by deploying a 35mm AtriClip at its base. Subsequently the aortic valve which was very pliable was excised. The annulus was pliable and intact. For that reason I use nonpledgeted Tycron 2-0 sutures and I used 15 of them placed in a horizontal mattress fashion. I decided at this point to move to the mitral repair part before placing the aortic prosthesis. To mention that in view of dense posterior left atrial adhesions as well as persistent left superior vena cava, ablation was not pursued. The left atrium was opened in a transverse fashion after developing the interatrial groove. With a hand-held retractor , I was able to see the mitral valve. I placed 8 sutures of Tycron 2/0 from trigone to trigone posteriorly. Those were passed into the smallest ring which was 26 mm and it seated nicely. All the needles were cut and the sutureS particularly the cough tied using the core knot device. Testing revealed good seal. CO2 was flowing over the field as long of the left atrium was open. Subsequently the left atriotomy was closed in 1 layer using pledgeted 4-0 Prolene on each corner and meeting in the midline. Attention was moved back at the aortic valve replacement part. The annulus was sized to a 19 mm Inspiris which was brought into the field and all the sutures passed symmetrically in it. It seated nicely in a supra annular position and clearing both coronary ostia. The needles were cut and the sutures tied using the core knot device. Thorough irrigation performed. Rewarming was started as we closed the aorta in 2 layers using 4-0 Prolene pledgeted on each corner with the first layer in a horizontal mattress fashion and the second layer in an over and over technique. Patient was given lidocaine, magnesium, de-airing maneuvers were pursued and the aortic vent was maximum before unclamping the aorta . Patient regained paced rhythm. I placed 2 monopolar atrial pacing wires on the respective pursestrings of the right atrium and I placed no ventricular wire in view of the fact that was patient showed good AV conduction . After around 15 minutes of reperfusion , wewere able to wean off cardiopulmonary bypass with 0.25 mics per kilogram per minute of Primacor that we had started at the beginning of the case as well as low-dose Levophed. CHRISTY showed good de-airing, improved left ventricular function and good functioning aortic valve without leak, low gradient, and no mitral valve regurgitation. With that, test dose and full dose protamine was given after stopping all suckers. Decannulation followed. The venous cannulation site required reinforcement with 4-0 Prolene pledgeted. 2X19 [place] Benigno drain were left substernally. Pericardium was loosely approximated over the heart. After ensuring adequate hemostasis and the vein so he ProPen the 0.5 problem IV on the right hemodynamics and after correct sponge instrument and needle count the sternum was closed using 5 [id number] [place] cable after interposing fibrillar between the sternal edges. Thorough irrigation with cefazolin followed. The rest of closure proceeded in layers. Skin glue was applied. Patient did not receive any blood in product but received 1200 cc of Cell Saver blood. Transferred to the ICU in stable condition on low-dose Primacor and Levophed atrially paced at 80 for optimal hemodynamics.
[2024-05-03 15:00] LABS: ALT 13 U/L (4-34); AST 37 U/L (14-36); African American GFR (CKD) >90 (>60 ml/min/1.73 sqM); Albumin 2.7 g/dL (3.5-5.0); Alkaline Phosphatase 33 U/L (38-126); Anion Gap 7 mmol/L; Blood Urea Nitrogen 18 mg/dL (7-17); Calcium 7.6 mg/dL (8.4-10.2); Carbon Dioxide 25 mmol/L (22-30); Chloride 109 mmol/L (98-107); Glucose 61 mg/dL (74-99); Magnesium 3.4 mg/dL (1.6-2.3); Non-African American GFR(CKD) 78 (>60 ml/min/1.73 sqM); Potassium 4.4 mmol/L (3.5-5.1); Sodium 141 mmol/L (137-145); Total Bilirubin 0.7 mg/dL (0.2-1.3); Total Protein 4.2 g/dL (6.3-8.2)
[2024-05-03 15:02] LABS: Glucose,Whole Blood 153 mg/dL (70-110)
[2024-05-03 15:03] LABS: Platelet Count 67 k/uL (150-450)
[2024-05-03] MEDS: AMIODARONE 450 MG in DEXTROSE 5% IN WATER 250 ML IV SCH (15:21)
[2024-05-03 15:33] LABS: ABG Base Excess 2.2 mmol/L; ABG HCO3 29 mmol/L (21-25); ABG Oxygen Saturation 57.6 % (94-97); ABG PCO2 55 mmHg (35-45); ABG PH 7.33 (7.35-7.45); ABG TCO2 30 mmol/L (19-24)
[2024-05-03] MEDS: HEPARIN SODIUM,PORCINE 5,000 UNIT/ML 1 ML VIAL SQ SCH (15:38)
[2024-05-03] MEDS: CALCIUM GLUCONATE IN NACL 1 GM in SALINE 1 100ML.BAG IVPB ONE (15:38)
[2024-05-03 15:40] LABS: Glucose,Whole Blood 116 mg/dL (70-110)
[2024-05-03 15:41] LABS: ABG Base Excess 1.2 mmol/L; ABG HCO3 27 mmol/L (21-25); ABG Oxygen Saturation 99.2 % (94-97); ABG PCO2 47 mmHg (35-45); ABG PH 7.36 (7.35-7.45); ABG PO2 153 mmHg (83-108); ABG TCO2 28 mmol/L (19-24)
[2024-05-03 15:45] LABS: ABG PO2 35 mmHg (83-108); Allen Test Performed? no
[2024-05-03 15:46] LABS: Allen Test Performed? no
[2024-05-03] MEDS: IPRATROPIUM-ALBUTEROL 3 ML NEB INHALATION SCH ×2 (15:51→21:00)
[2024-05-03 16:08] LABS: Glucose,Whole Blood 98 mg/dL (70-110)
[2024-05-03 17:07] LABS: Glucose,Whole Blood 164 mg/dL (70-110)
[2024-05-03] MEDS: INSULIN REGULAR 100 UNIT in SODIUM CHLORIDE 0.9% 100 ML IV SCH (17:13)
[2024-05-03 17:15] LABS: Basophils % (A) 0 %; Eosinophils % (A) 0 %; HCT 30.8 % (34.0-46.0); HGB 9.6 gm/dL (11.4-16.0); Lymphocytes # (A) 0.7 k/uL (1.0-4.8); Lymphocytes % (A) 9 %; MCH 30.1 pg (25.0-35.0); MCHC 31.3 g/dL (31.0-37.0); MCV 96.3 fL (80.0-100.0); Mean Platelet Volume 11.2; Monocytes # (A) 0.6 k/uL (0-1.0); Monocytes % (A) 7 %; Neutrophils # (A) 6.9 k/uL (1.3-7.7); Neutrophils % (A) 83 %; RBC 3.19 m/uL (3.80-5.40); RDW 13.8 % (11.5-15.5); WBC 8.4 k/uL (3.8-10.6)
[2024-05-03 17:19] LABS: Platelet Count 71 k/uL (150-450)
[2024-05-03 18:07] LABS: Glucose,Whole Blood 155 mg/dL (70-110)
[2024-05-03] MEDS: ACETAMINOPHEN IVPB SCH (18:31)
[2024-05-03 19:03] LABS: Glucose,Whole Blood 114 mg/dL (70-110)
[2024-05-03 19:38] LABS: ABG PH 7.62 (7.35-7.45); ABG PO2 >420 mmHg (83-108)
[2024-05-03 19:39] LABS: ABG Hematocrit 20 % (34.0-46.0); ABG Lactic Acid Whole Blood 2.2 mmol/L (0.5-1.6); ABG Potassium Whole Blood 6.8 mmol/L (3.4-4.5)
[2024-05-03 19:48] LABS: Glucose,Whole Blood 126 mg/dL (70-110)
[2024-05-03 20:00] LABS: Basophils % (A) 0 %; Eosinophils % (A) 0 %; HCT 28.8 % (34.0-46.0); HGB 9.1 gm/dL (11.4-16.0); Lymphocytes # (A) 0.5 k/uL (1.0-4.8); Lymphocytes % (A) 6 %; MCH 30.7 pg (25.0-35.0); MCHC 31.7 g/dL (31.0-37.0); MCV 96.7 fL (80.0-100.0); Monocytes # (A) 0.5 k/uL (0-1.0); Monocytes % (A) 6 %; Neutrophils % (A) 87 %; RBC 2.98 m/uL (3.80-5.40); RDW 13.6 % (11.5-15.5)
[2024-05-03 20:01] LABS: Platelet Count 66 k/uL (150-450)
[2024-05-03 20:45] LABS: ABG Base Excess 1.4 mmol/L; ABG HCO3 27 mmol/L (21-25); ABG Oxygen Saturation 97.5 % (94-97); ABG PCO2 47 mmHg (35-45); ABG PH 7.37 (7.35-7.45); ABG PO2 96 mmHg (83-108); ABG TCO2 28 mmol/L (19-24)
[2024-05-03 20:51] LABS: Glucose,Whole Blood 121 mg/dL (70-110)
[2024-05-03 21:01] LABS: Allen Test Performed? no
[2024-05-03 22:00] LABS: Glucose,Whole Blood 117 mg/dL (70-110)
[2024-05-03] MEDS: LACTOBACILLUS ACIDOPHILUS/PECT 1 EACH CAPSULE PO SCH (22:32)
[2024-05-03] MEDS: SENNOSIDES-DOCUSATE SODIUM 1 EACH TAB PO SCH (22:32)
[2024-05-03] MEDS: VIT A,C & E-LUTEIN-MINERALS 1 EACH TAB PO SCH (22:33)
[2024-05-03] MEDS: ONDANSETRON 4 MG/2 ML VIAL IVP PRN (22:49)
[2024-05-03 22:58] LABS: Glucose,Whole Blood 118 mg/dL (70-110)
--- NOTE | 2024-05-03 23:08 | P.CNPUL ---
History of Present Illness Consult date: 05/03/24 Chief complaint: Aortic valve replacement, mitral valve repair History of present illness: This is a 79-year-old female patient being seen in the intensive care unit postop as the patient had severe aortic valve regurgitation with mitral valve r egurgitation and mild pulmonary hypertension and moderate LV dysfunction and the patient was taken to the operating room and underwent aortic valve replacement and mitral valve repair. The patient is also noted to have paroxysmal A-fib and has a pacemaker in place along with history of chronic kidney disease and previous history of embolic stroke with full recovery. The patient was brought into the intensive care and intubated on the mechanical ventilator. The patient was sedated with propofol. The patient is on the mechanical ventilator, assist- control mode rate of 12, tidal volume of 400, FiO2 of 100% with a PEEP of 5. Initial blood gases postop in the intensive care unit showed a pH of 7.57 with a pCO2 of 27 and pO2 of 256. FiO2 was dropped down to 60% and follow-up gases showed a pH of 7. 36 with a pCO2 of 47 and pO2 of 153. The patient's PA pressures were 38/28. Cardiac index was 1.7. Patient has mediastinal x2.. Chest x-ray showed adequate expansion of both lungs. No evidence of any pneumothorax. The patient has a right IJ [place]-Kip catheter in place. The patient is atrially paced at rate of 80. The patient is currently on low-dose norepinephrine and milrinone which is running at 0.2 mcg/kg/min. Urine output is adequate. Initial blood work showed a white cell count of 8 with a hemoglobin 9.1 and a platelet count of 66. The sodium is at 141, potassium is at 4.4, chloride is 109 with a bicarb of 25 BUN of 18 with a creatinine of 0.7. IV fluids are normal saline at rate of 50 cc an hour. No other significant events postop. Review of Systems ROS unobtainable: due to endotracheal tube Past Medical History Past Medical History: Atrial Fibrillation, Heart Failure, CVA/TIA, Eye Disorder, Hearing Disorder / Deafness, Hyperlipidemia, Hypertension, Osteoarthritis (OA), Renal Disease, Skin Disorder Additional Past Medical History / Comment(s): SOB in the evening and through the night has improved with med changes. Tinnitus, bilateral hearing aid use. Diverticular disease, hemorrhoids. Hx kidney stones. hx Anemia. 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 Stage 3 kidney disease. Macular degeneration left eye. Small hiatal hernia. Reddness to cheeks, at times feels tingling. watching shadow by liver. History of Any Multi-Drug Resistant Organisms: None Reported Past Surgical History: Adenoidectomy, Appendectomy, Section, Heart Catheterization, Pacemaker, Tonsillectomy Additional Past Surgical History / Comment(s): SINUS SURGERY, section X 3, CHRISTY, colonoscopy. Past Anesthesia/Blood Transfusion Reactions: No Reported Reaction Additional Past Anesthesia/Blood Transfusion Reaction / Comment(s): Hx blood transfusion with no issues 50 yrs ago. Type of Cardiac Device: Permanent Pacemaker Device Placement Date:: 01/2017 Left chest Smoking Status: Never smoker - Past Family History Sister(s) Family Medical History: Cancer Brother(s) Family Medical History: Cancer, Coronary Artery Disease (CAD) Father Family Medical History: Cancer Additional Family Medical History / Comment(s): Prostate cancer with mets to bones, colon. Mother Family Medical History: Renal Disease Additional Family Medical History / Comment(s): kidney disease Medications and Allergies Home Medications Medication Instructions Recorded Confirmed Type L.acidoph,Paracasei, B.lactis 1 cap PO BID 04/25/22 05/03/24 History [Probiotic] Vit C/E/Zn/Coppr/Lutein/Zeaxan 1 cap PO BID 04/25/22 04/27/24 History [Preservision Areds 2 Softgel] Illumineyes 1 tab PO DAILY 12/30/23 04/27/24 History Magnesium(Unknown Dose) 800 mg PO DIRECTED PRN 12/30/23 05/03/24 History Vitamin B-6/B-12(25mg/100mcg) 1 tab PO Q48H 12/30/23 04/27/24 History Vitamin C 650mg 1 tab PO DAILY 12/30/23 04/27/24 History Vitamin D3 40mcg 80 mcg PO BID 12/30/23 04/27/24 History Metoprolol Tartrate [Lopressor] 25 mg PO TID@0800,1600,2300 #180 01/02/24 05/03/24 Rx tab Amiodarone [Cordarone] 100 mg PO AC-LUNCH 01/06/24 05/03/24 History lisinopriL [Zestril] 2.5 mg PO DAILY 02/03/24 05/03/24 History Furosemide [Lasix] 40 mg PO DAILY PRN 02/23/24 05/03/24 History Apixaban [Eliquis] 5 mg PO BID 02/27/24 05/03/24 History Allergies Allergy/AdvReac Type Severity Reaction Status Date / Time strawberry Allergy Itching Verified 05/03/24 05:51 corn AdvReac lack of Verified 05/03/24 05:51 energy mold AdvReac sinuses Verified 05/03/24 05:51 [id number] Reductase AdvReac muscle Verified 05/03/24 05:51 Inhibitor aches and lethargy wheat AdvReac stomach Verified 05/03/24 05:51 bloats and lack of energy Yeast AdvReac sore Verified 05/03/24 05:51 throat,sinuses fungus AdvReac sinuses Uncoded 05/03/24 05:51 Physical Exam Vitals: Vital Signs Temp Pulse Pulse Resp BP BP BP 05/03/24 22:00 80 13 05/03/24 21:45 80 14 05/03/24 21:30 80 11 L 05/03/24 21:15 80 10 L 05/03/24 21:00 80 11 L 108/71 05/03/24 20:45 80 10 L 05/03/24 20:30 80 11 L 05/03/24 20:15 80 13 05/03/24 20:00 98.8 F 80 16 92/59 05/03/24 19:45 80 12 05/03/24 19:30 80 12 05/03/24 19:15 79 12 05/03/24 19:00 80 12 05/03/24 18:45 80 12 05/03/24 18:30 80 12 05/03/24 18:15 80 13 05/03/24 18:00 80 12 05/03/24 17:50 78 12 05/03/24 17:40 79 13 05/03/24 17:30 79 12 05/03/24 17:20 77 12 05/03/24 17:10 78 12 05/03/24 17:00 79 12 05/03/24 16:50 78 13 03/10/25 16:40 77 12 05/03/24 16:30 77 12 05/03/24 16:20 79 13 05/03/24 16:10 78 12 05/03/24 16:00 98.6 F 79 12 05/03/24 15:59 05/03/24 15:51 80 05/03/24 15:50 80 12 05/03/24 15:47 05/03/24 15:40 80 12 05/03/24 15:30 79 12 05/03/24 15:20 79 12 05/03/24 15:10 79 12 05/03/24 15:00 98.2 F 80 12 05/03/24 14:50 79 12 05/03/24 14:40 78 12 05/03/24 14:30 79 12 05/03/24 14:28 05/03/24 14:20 80 12 05/03/24 14:10 80 12 05/03/24 14:06 05/03/24 14:04 05/03/24 14:00 97.3 F L 80 12 05/03/24 06:11 98.1 F 60 16 141/65 148/66 Pulse Ox FiO2 05/03/24 22:00 98 05/03/24 21:45 97 05/03/24 21:30 96 05/03/24 21:15 96 05/03/24 21:00 95 05/03/24 20:45 96 05/03/24 20:30 96 05/03/24 20:15 98 05/03/24 20:00 97 50 05/03/24 19:45 96 05/03/24 19:30 98 05/03/24 19:15 97 05/03/24 19:00 97 05/03/24 18:45 97 05/03/24 18:30 97 05/03/24 18:15 97 05/03/24 18:00 98 05/03/24 17:50 99 05/03/24 17:40 99 05/03/24 17:30 99 05/03/24 17:20 99 05/03/24 17:10 100 05/03/24 17:00 100 05/03/24 16:50 100 05/03/24 16:40 100 05/03/24 16:30 100 05/03/24 16:20 100 05/03/24 16:10 100 05/03/24 16:00 100 50 05/03/24 15:59 50 05/03/24 15:51 05/03/24 15:50 100 50 05/03/24 15:47 50 05/03/24 15:40 100 50 05/03/24 15:30 100 50 05/03/24 15:20 100 60 05/03/24 15:10 100 60 05/03/24 15:00 100 100 05/03/24 14:50 100 100 05/03/24 14:40 100 100 05/03/24 14:30 100 100 05/03/24 14:28 100 05/03/24 14:20 100 100 05/03/24 14:10 100 100 05/03/24 14:06 100 05/03/24 14:04 100 05/03/24 14:00 100 100 05/03/24 06:11 98 Intake and Output 05/03/24 05/03/24 05/04/24 14:59 22:59 06:59 Intake Total 2 772.649 Output Total 1050 775 Balance -1048 -2.351 Intake: IV 2 533 0.9 PRESSURE BAG 72 ACETAMINOPHEN IV (For NPO 71 ) 710 mg In Empty Bag 1 bag @ 284 mls/hr IVPB Q6HR [facility] Rx#:[id number] CO/CI 140 Sodium Chloride 0.9% 1, 150 000 ml @ 50 mls/hr IV . Q20H [facility] Rx#:[id number] ceFAZolin 2 gm In Sodium 100 Chloride 0.9% 50 ml @ 100 mls/hr IVPB ONCE ONE Rx# :[id number] Intake, IV Titration 239.649 Amount Calcium Gluconate in NaCl 100 1 gm In Saline 1 100ml. bag @ 100 mls/hr IVPB ONCE ONE Rx#:[id number] Insulin Regular 100 unit 6.258 In Sodium Chloride 0.9% 100 ml @ Per Protocol IV .Q0M [facility] Rx#:[id number] Norepinephrine 4 mg In 33.391 Sodium Chloride 0.9% 250 ml @ 0.02 MCG/KG/MIN 3. 597 mls/hr IV .Q24H [facility] Rx#:[id number] Sodium Chloride 0.9% 1, 100 000 ml @ 50 mls/hr IV . Q20H [facility] Rx#:[id number] Output: Chest Tube Drainage 400 Chest Tube Mediastinal 400 Urine 600 375 Estimated Blood Loss 450 Other: Voiding Method Indwelling Catheter ABP, PAP, CO, CI - Last 8 Hours Arterial Blood Pressure 103/65 Arterial Blood Pressure 95/59 Arterial Blood Pressure 97/59 Arterial Blood Pressure 95/59 Arterial Blood Pressure 109/66 Arterial Blood Pressure 117/68 Arterial Blood Pressure 99/61 Arterial Blood Pressure 99/60 Arterial Blood Pressure 96/59 Arterial Blood Pressure 89/55 Arterial Blood Pressure 89/55 Arterial Blood Pressure 100/59 Arterial Blood Pressure 96/58 Arterial Blood Pressure 104/61 Arterial Blood Pressure 103/60 Arterial Blood Pressure 94/58 Arterial Blood Pressure 92/57 Arterial Blood Pressure 95/58 Arterial Blood Pressure 93/58 Arterial Blood Pressure 90/57 Arterial Blood Pressure 101/62 Arterial Blood Pressure 105/66 Arterial Blood Pressure 113/66 Arterial Blood Pressure 112/69 Arterial Blood Pressure 105/66 Arterial Blood Pressure 113/71 Arterial Blood Pressure 105/67 Arterial Blood Pressure 114/74 Arterial Blood Pressure 92/60 Arterial Blood Pressure 87/55 Arterial Blood Pressure 83/53 Arterial Blood Pressure 84/54 Arterial Blood Pressure 85/53 Pulmonary Artery Pressure 29/16 Pulmonary Artery Pressure 28/16 Pulmonary Artery Pressure 29/16 Pulmonary Artery Pressure 28/15 Pulmonary Artery Pressure 32/17 Pulmonary Artery Pressure 38/21 Pulmonary Artery Pressure 30/16 Pulmonary Artery Pressure 29/15 Pulmonary Artery Pressure 28/14 Pulmonary Artery Pressure 28/14 Pulmonary Artery Pressure 26/13 Pulmonary Artery Pressure 26/15 Pulmonary Artery Pressure 30/15 Pulmonary Artery Pressure 29/14 Pulmonary Artery Pressure 30/15 Pulmonary Artery Pressure 30/15 Pulmonary Artery Pressure 31/16 Pulmonary Artery Pressure 30/19 Pulmonary Artery Pressure 31/16 Pulmonary Artery Pressure 32/18 Pulmonary Artery Pressure 31/17 Pulmonary Artery Pressure 34/19 Pulmonary Artery Pressure 34/20 Pulmonary Artery Pressure 35/20 Pulmonary Artery Pressure 36/20 Pulmonary Artery Pressure 38/21 Pulmonary Artery Pressure 40/25 Pulmonary Artery Pressure 39/24 Pulmonary Artery Pressure 38/23 Pulmonary Artery Pressure 37/23 Pulmonary Artery Pressure 35/22 Pulmonary Artery Pressure 35/22 Pulmonary Artery Pressure 34/21 Pulmonary Artery Pressure 34/21 Cardiac Output 2.6 Cardiac Output 2.8 Cardiac Output 2.8 Cardiac Output 2.7 Cardiac Output 2.5 Cardiac Output 2.2 Cardiac Output 2.2 Cardiac Output 2.5 Cardiac Output 2.5 Cardiac Output 2.5 Cardiac Output 2.5 Cardiac Output 2.5 Cardiac Index 1.8 Cardiac Index 2 Cardiac Index 2.0 Cardiac Index 1.9 Cardiac Index 1.7 Cardiac Index 1.5 Cardiac Index 1.5 Cardiac Index 1.7 Cardiac Index 1.7 Cardiac Index 1.7 Cardiac Index 1.7 Cardiac Index 1.7 The patient appeared well nourished and normally developed., Comfortable, sedated. Orogastric and orotracheal tube are both in place Head exam is unremarkable. No scleral icterus or corneal arcus noted. Neck is without jugular venous distension, thyromegaly, or carotid bruits. Carotid upstrokes are brisk bilaterally. The patient has a right IJ [place]-Kip catheter/Cordis Lungs are clear to auscultation and percussion. Patient has mediastinal chest tube x 2, output is minimal and there is no evidence of any air leak Cardiac exam reveals the PMI to be normally sized and situated. Rhythm is regular. First and second heart sounds normal. No murmurs, rubs or gallops. Thoracotomy scar is dry clean and intact and the patient is paced at a rate of 80, a paced. Abdominal exam reveals normal bowel sounds, no masses, no organomegaly and no aortic enlargement. Extremities are nonedematous and both femoral and pedal pulses are normal. Examination of the skin revealed no evidence of significant rashes, suspicious appearing nevi or other concerning lesions. Neurologically, the patient is sedated on propofol. Pupils are equal reactive to light. Responsive and withdraws to deep painful stimulation. Results - Laboratory Findings CBC and BMP: 05/03/24 19:47 05/03/24 14:11 ABG ABG pH 7.37 (7.35-7.45) 05/03/24 20:43 ABG pCO2 47 mmHg (35-45) H 05/03/24 20:43 ABG pO2 96 mmHg (83-108) 05/03/24 20:43 ABG O2 Saturation 97.5 % (94-97) H 05/03/24 20:43 PT/INR, D-dimer PT 16.6 sec (10.0-12.5) H 05/03/24 14:11 INR 1.6 (<1.2) H 05/03/24 14:11 Abnormal lab findings: Abnormal Labs 04/27/24 05/03/2425 09:50 08:40 08:40 RBC Hgb Hct Plt Count Lymphocytes # PT INR APTT Fibrinogen ABG pH 7.33 L 7.62 H* ABG pCO2 57 H 28 L ABG pO2 40 L* >420 H ABG HCO3 30 H 29 H ABG Total CO2 28 H 27 H ABG O2 Saturation 70.4 L 99.4 H ABG Hematocrit 20 L* ABG Potassium 6.8 H* ABG Ionized Calcium 3.7 L ABG Glucose 260 H ABG Lactic Acid 2.2 H* Hemoglobin 6.6 L* Chloride BUN Glucose POC Glucose (mg/dL) Calcium Ionized Calcium Samuel Magnesium AST Alkaline Phosphatase Total Protein Albumin Arterial Blood Potassium 6.8 H* Arterial Blood Glucose 260 H Crossmatch See Detail 05/03/24 05/03/24 05/03/24 08:43 09:15 09:52 RBC Hgb Hct Plt Count Lymphocytes # PT INR APTT Fibrinogen ABG pH 7.56 H* ABG pCO2 49 H 32 L ABG pO2 267 H >420 H 279 H ABG HCO3 27 H 28 H 27 H ABG Total CO2 25 H 27 H 25 H ABG O2 Saturation 97.7 H 99.3 H 97.7 H ABG Hematocrit 21 L 32 L ABG Potassium 6.3 H* ABG Ionized Calcium 3.8 L ABG Glucose 111 H 101 H ABG Lactic Acid Hemoglobin 11.3 L 6.8 L* 10.4 L Chloride BUN Glucose POC Glucose (mg/dL) Calcium Ionized Calcium Samuel Magnesium AST Alkaline Phosphatase Total Protein Albumin Arterial Blood Potassium 6.3 H* Arterial Blood Glucose 111 H 101 H Crossmatch 05/03/24 05/03/24 05/03/24 11:20 11:54 12:17 RBC Hgb Hct Plt Count Lymphocytes # PT INR APTT Fibrinogen ABG pH 7.47 H 7.46 H ABG pCO2 ABG pO2 382 H 390 H 353 H ABG HCO3 29 H 28 H 27 H ABG Total CO2 28 H 27 H 27 H ABG O2 Saturation 99.2 H 99.2 H 99.3 H ABG Hematocrit 20 L* 21 L 20 L* ABG Potassium 6.1 H 6.2 H* 6.1 H ABG Ionized Calcium 3.8 L 3.8 L 3.9 L ABG Glucose 117 H ABG Lactic Acid 3.7 H* 3.9 H* 4.1 H* Hemoglobin 6.5 L* 6.9 L* 6.5 L* Chloride BUN Glucose POC Glucose (mg/dL) Calcium Ionized Calcium Samuel Magnesium AST Alkaline Phosphatase Total Protein Albumin Arterial Blood Potassium 6.1 H 6.2 H* 6.1 H Arterial Blood Glucose 117 H Crossmatch 05/03/24 05/03/24 05/03/24 13:15 14:10 14:11 RBC 2.76 L Hgb 8.6 L D Hct 26.7 L Plt Count 67 L D Lymphocytes # PT INR APTT Fibrinogen ABG pH 7.46 H ABG pCO2 ABG pO2 123 H ABG HCO3 ABG Total CO2 ABG O2 Saturation 98.5 H ABG Hematocrit 27 L ABG Potassium ABG Ionized Calcium 4.4 L ABG Glucose ABG Lactic Acid 3.4 H* Hemoglobin 8.7 L Chloride BUN Glucose POC Glucose (mg/dL) 69 L Calcium Ionized Calcium Samuel Magnesium AST Alkaline Phosphatase Total Protein Albumin Arterial Blood Potassium Arterial Blood Glucose Crossmatch 05/03/24 05/03/24 05/03/24 14:11 14:11 14:11 RBC Hgb Hct Plt Count Lymphocytes # PT 16.6 H INR 1.6 H APTT 49.8 H Fibrinogen 91 L ABG pH ABG pCO2 ABG pO2 ABG HCO3 ABG Total CO2 ABG O2 Saturation ABG Hematocrit ABG Potassium ABG Ionized Calcium ABG Glucose ABG Lactic Acid Hemoglobin Chloride 109 H BUN 18 H Glucose 61 L POC Glucose (mg/dL) Calcium 7.6 L Ionized Calcium Samuel 4.3 L Magnesium 3.4 H AST 37 H Alkaline Phosphatase 33 L Total Protein 4.2 L Albumin 2.7 L Arterial Blood Potassium Arterial Blood Glucose Crossmatch 05/03/24 05/03/24 05/03/24 14:20 14:30 15:00 RBC Hgb Hct Plt Count Lymphocytes # PT INR APTT Fibrinogen ABG pH 7.57 H* ABG pCO2 27 L ABG pO2 259 H ABG HCO3 ABG Total CO2 25 H ABG O2 Saturation 98.8 H ABG Hematocrit ABG Potassium ABG Ionized Calcium ABG Glucose ABG Lactic Acid Hemoglobin 8.3 L Chloride BUN Glucose POC Glucose (mg/dL) 42 L* 153 H Calcium Ionized Calcium Samuel Magnesium AST Alkaline Phosphatase Total Protein Albumin Arterial Blood Potassium Arterial Blood Glucose Crossmatch 05/03/24 05/03/24 05/03/24 15:31 15:38 15:39 RBC Hgb Hct Plt Count Lymphocytes # PT INR APTT Fibrinogen ABG pH 7.33 L ABG pCO2 55 H 47 H ABG pO2 35 L* 153 H ABG HCO3 29 H 27 H ABG Total CO2 30 H 28 H ABG O2 Saturation 57.6 L 99.2 H ABG Hematocrit ABG Potassium ABG Ionized Calcium ABG Glucose ABG Lactic Acid Hemoglobin 8.5 L 8.6 L Chloride BUN Glucose POC Glucose (mg/dL) 116 H Calcium Ionized Calcium Samuel Magnesium AST Alkaline Phosphatase Total Protein Albumin Arterial Blood Potassium Arterial Blood Glucose Crossmatch 05/03/24 05/03/24 05/03/24 17:00 17:05 18:06 RBC 3.19 L Hgb 9.6 L Hct 30.8 L Plt Count 71 L Lymphocytes # 0.7 L PT INR APTT Fibrinogen ABG pH ABG pCO2 ABG pO2 ABG HCO3 ABG Total CO2 ABG O2 Saturation ABG Hematocrit ABG Potassium ABG Ionized Calcium ABG Glucose ABG Lactic Acid Hemoglobin Chloride BUN Glucose POC Glucose (mg/dL) 164 H 155 H Calcium Ionized Calcium Samuel Magnesium AST Alkaline Phosphatase Total Protein Albumin Arterial Blood Potassium Arterial Blood Glucose Crossmatch 05/03/24 05/03/24 05/03/24 19:02 19:46 19:47 RBC 2.98 L Hgb 9.1 L Hct 28.8 L Plt Count 66 L Lymphocytes # 0.5 L PT INR APTT Fibrinogen ABG pH ABG pCO2 ABG pO2 ABG HCO3 ABG Total CO2 ABG O2 Saturation ABG Hematocrit ABG Potassium ABG Ionized Calcium ABG Glucose ABG Lactic Acid Hemoglobin Chloride BUN Glucose POC Glucose (mg/dL) 114 H 126 H Calcium Ionized Calcium Samuel Magnesium AST Alkaline Phosphatase Total Protein Albumin Arterial Blood Potassium Arterial Blood Glucose Crossmatch 05/03/24 05/03/24 05/03/24 20:43 20:46 21:59 RBC Hgb Hct Plt Count Lymphocytes # PT INR APTT Fibrinogen ABG pH ABG pCO2 47 H ABG pO2 ABG HCO3 27 H ABG Total CO2 28 H ABG O2 Saturation 97.5 H ABG Hematocrit ABG Potassium ABG Ionized Calcium ABG Glucose ABG Lactic Acid Hemoglobin 9.4 L Chloride BUN Glucose POC Glucose (mg/dL) 121 H 117 H Calcium Ionized Calcium Samuel Magnesium AST Alkaline Phosphatase Total Protein Albumin Arterial Blood Potassium Arterial Blood Glucose Crossmatch 05/03/24 22:57 RBC Hgb Hct Plt Count Lymphocytes # PT INR APTT Fibrinogen ABG pH ABG pCO2 ABG pO2 ABG HCO3 ABG Total CO2 ABG O2 Saturation ABG Hematocrit ABG Potassium ABG Ionized Calcium ABG Glucose ABG Lactic Acid Hemoglobin Chloride BUN Glucose POC Glucose (mg/dL) 118 H Calcium Ionized Calcium Samuel Magnesium AST Alkaline Phosphatase Total Protein Albumin Arterial Blood Potassium Arterial Blood Glucose Crossmatch - Diagnostic Findings Chest x-ray: image reviewed Assessment and Plan Plan: Aortic valve replacement and mitral valve repair for severe aortic and and mitral valve regurgitation. The patient is currently postop day #0. Hemodynamically stable. Cardiac index at 1.7. Maintained on a combination of milrinone and Levophed for hemodynamic support. Adequate urine output. Cardiac rhythm is atrially paced at a rate of 80. Postthoracotomy. Mediastinal chest tube in place. Output is minimal and the patient remains intubated on the mechanical ventilator with adequate oxygenation and ventilation. Chest x-ray was noted. Paroxysmal atrial fibrillation, current rhythm is paced. The patient has a pace maker and the patient is currently atrially paced rate of 80. 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 Hypertension Hyperlipidemia Osteoarthritis History of nephrolithiasis/kidney stones Diverticular disease History of tachybradycardia syndrome History of macular degeneration Small hiatal hernia Anemia, acute, expected outcome of surgery Acute thrombocytopenia, expected lower, surgery Plan Continue ventilator support -FiO2 is gradually being weaned off to maintain saturation above 90% Keep the patient on propofol for now and perform a gradual wean Continue milrinone and norepinephrine for hemodynamic support Monitor cardiac output and index Monitor output from the chest tubes and the patient has mediastinal chest tube x 2 Keep the patient atrially paced at a rate of 80 Overall condition is stable. Anticipate extubation within the next few hours Blood work was reviewed, monitor the hemoglobin and the platelet count Will continue to follow Time with Patient: Greater than 30
[2024-05-03 23:53] LABS: Glucose,Whole Blood 119 mg/dL (70-110)
[2024-05-04 01:11] LABS: Glucose,Whole Blood 113 mg/dL (70-110)
[2024-05-04] MEDS: ACETAMINOPHEN IVPB SCH (01:38)
[2024-05-04 02:02] LABS: Glucose,Whole Blood 116 mg/dL (70-110)
[2024-05-04 03:14] LABS: Glucose,Whole Blood 135 mg/dL (70-110)
[2024-05-04] MEDS: METOCLOPRAMIDE 5 MG/ML 2 ML VIAL IVP PRN (03:35)
[2024-05-04 03:55] LABS: Glucose,Whole Blood 145 mg/dL (70-110)
[2024-05-04 04:09] LABS: Basophils % (A) 0 %; Eosinophils % (A) 0 %; HCT 30.2 % (34.0-46.0); HGB 9.5 gm/dL (11.4-16.0); Hypochromasia Slight; Lymphocytes # (A) 0.5 k/uL (1.0-4.8); Lymphocytes % (A) 6 %; MCH 30.7 pg (25.0-35.0); MCHC 31.5 g/dL (31.0-37.0); MCV 97.6 fL (80.0-100.0); Mean Platelet Volume 10.7; Monocytes # (A) 0.4 k/uL (0-1.0); Monocytes % (A) 4 %; Neutrophils # (A) 7.7 k/uL (1.3-7.7); Neutrophils % (A) 89 %; RDW 13.9 % (11.5-15.5); WBC 8.7 k/uL (3.8-10.6)
[2024-05-04 04:13] LABS: Ionized Calcium 4.6 mg/dL (4.5-5.3)
[2024-05-04 04:22] LABS: ALT 17 U/L (4-34); AST 65 U/L (14-36); African American GFR (CKD) 74 (>60 ml/min/1.73 sqM); Albumin 3.1 g/dL (3.5-5.0); Alkaline Phosphatase 55 U/L (38-126); Anion Gap 5 mmol/L; Blood Urea Nitrogen 19 mg/dL (7-17); Calcium 7.9 mg/dL (8.4-10.2); Carbon Dioxide 25 mmol/L (22-30); Chloride 107 mmol/L (98-107); Glucose 140 mg/dL (74-99); Magnesium 2.5 mg/dL (1.6-2.3); Non-African American GFR(CKD) 64 (>60 ml/min/1.73 sqM); Potassium 5.6 mmol/L (3.5-5.1); Sodium 137 mmol/L (137-145); Total Bilirubin 0.6 mg/dL (0.2-1.3); Total Protein 4.8 g/dL (6.3-8.2)
[2024-05-04 04:34] LABS: Platelet Count 64 k/uL (150-450)
[2024-05-04 05:08] LABS: Glucose,Whole Blood 141 mg/dL (70-110)
--- NOTE | 2024-05-04 06:01 | XR ---
EXAMINATION TYPE: XR chest 1V portable DATE OF EXAM: 05/04/2024 CLINICAL INDICATION: Female, 79 years old with history of Post Operative Cardiac Surgery, progress st [facility]. TECHNIQUE: Single AP portable semiupright view of the chest is obtained. COMPARISON: Chest x-ray from one day earlier. FINDINGS: Interval extubation with removal of endotracheal and orogastric tubes. Stable right internal sales al jugular [place]-Kip catheter and mediastinal drainage catheter. Overlying sternal wires along with metallic aortic valve and left atrial appendage clip are all redem onstrated. Persistent cardiomegaly with central vascular congestion and small bilateral pleural effusions with l eft basilar opacity favoring compressive atelectasis. Osseous structures are intact. IMPRESSION: Interval extubation. Persistent cardiomegaly with central vascular congestion and small b ilateral pleural effusions. Worsening left basilar opacity favors compressive atelectasis. [facility], , 05/04/2024 5:59 AM
[2024-05-04] MEDS: PANTOPRAZOLE 40 MG TABLET PO SCH (06:14)
[2024-05-04] MEDS: SODIUM ZIRCONIUM CYCLOSILICATE 10 GM PACKET PO ONE (06:14)
[2024-05-04 06:27] LABS: Glucose,Whole Blood 116 mg/dL (70-110)
[2024-05-04 06:55] LABS: Glucose,Whole Blood 111 mg/dL (70-110)
[2024-05-04 08:11] LABS: Glucose,Whole Blood 128 mg/dL (70-110)
[2024-05-04] MEDS: CALCIUM GLUCONATE IN NACL 1 GM in SALINE 1 100ML.BAG IVPB ONE (08:24)
[2024-05-04] MEDS: ASCORBIC ACID 500 MG TAB PO SCH (08:25)
[2024-05-04] MEDS: CHOLECALCIFEROL 25 MCG (1000 IU) TABLET PO SCH (08:25)
[2024-05-04] MEDS: CLOPIDOGREL 75 MG TAB PO SCH (08:25)
[2024-05-04] MEDS: ASPIRIN 325 MG TAB PO SCH (08:25)
[2024-05-04] MEDS: METOPROLOL TARTRATE 12.5 MG TAB PO SCH (08:25)
[2024-05-04] MEDS: AMIODARONE 200 MG TAB PO SCH (08:25)
[2024-05-04] MEDS: hydrALAZINE HCL 25 MG TAB PO SCH (08:26)
--- NOTE | 2024-05-04 08:35 | P.PN ---
Subjective Progress Note Date: 05/04/24 Principal diagnosis: Severe aortic valve regurgitation, moderate mitral valve regurgitation, mild to moderate tricuspid valve regurgitation, and mild pulmonary hypertension. Past m edical history significant for moderate left ventricular dysfunction, hypertension, chronic kidney disease stage III, paroxysmal atrial fibrillation, status post permanent dual-chamber pacemaker, history of embolic stroke with full recovery, hard of hearing, osteoarthritis and is a lifetime non-smoker. POD #1 aortic valve replacement using a 19 mm Inspiris pericardial bioprosthesis, mitral valve repair using a posterior annuloplasty band 26 mm annuloflex, exclusion of the left atrial appendage using a 35mm AtriClip, and transesophageal echocardiogram and epiaortic scanning. Postoperative blood loss anemia and thrombocytopenia, expected given cardiopulmonary bypass and hemodilution. The patient was seen and examined in follow-up today May 04, 2024 at her bedside in the intensive care unit. She was successfully extubated 8:53 PM, is currently on 2 L nasal cannula with oxygen saturations 99% and is achieving 1000 mL on her incentive spirometry with encouragement. She is currently sitting up to the bedside chair, is awake, alert, oriented x 3 and is in no acute apparent distress. She denies any complaints of shortness of breath at this time, although is complaining of some surgical type pain to her chest tube insertion site. She reports that her pain is 4-5 out of 10 on the pain scale and that the current pain medication she is receiving is controlling her pain. She is also complaining of bouts of nausea. Bedside telemetry is showing atrial paced rhythm with a heart rate of 80 bpm, amiodarone drip is infusing per protocol at 0.5 mg/min. Right IJ cordis and [place]-Kip catheter remain in place with current hemodynamic showing a cardiac output of 2.7, cardiac index 1.9, PA pressures 27/12, CVP 10, and SVR 2308. Primacor drip remains infusing at 0.25 mcg/kg/min. Mediastinal chest tubes remain in place to low continuous wall suction -20 cm H2O. No airleak is present. Draining thin serosanguineous drainage with 130 mL output in the last 8 hours and 550 mL output since surgery. Atrial epicardial pacemaker wires remain in place and are connected to backup bedside pacemaker generator on an AAI mode of 80 bpm. Chest x-ray and laboratory results were reviewed. Objective - Vital Signs Vital signs: Vital Signs Temp 98.2 F 05/04/24 06:30 Pulse 79 05/04/24 07:00 Resp 11 L 05/04/24 07:00 BP 98/66 05/04/24 04:00 Pulse Ox 98 05/04/24 07:00 FiO2 50 05/03/24 20:00 Intake & Output 05/03/24 05/04/24 05/04/24 18:59 06:59 18:59 Intake Total 689.354 8781.147 0.567 Output Total 1610 660 Balance -1266.551 938.147 0.567 Weight 50.7 kg Intake: IV 118 1168 0.9 PRESSURE BAG 36 117 ACETAMINOPHEN IV (For NPO 171 ) 710 mg In Empty Bag 1 bag @ 284 mls/hr IVPB Q6HR WADE Rx#:[id number] CO/CI 80 130 Sodium Chloride 0.9% 1, 600 000 ml @ 50 mls/hr IV . Q20H WADE Rx#:[id number] ceFAZolin 2 gm In Sodium 150 Chloride 0.9% 50 ml @ 100 mls/hr IVPB ONCE ONE Rx# :[id number] Intake, IV Titration 225.449 300.147 0.567 Amount Amiodarone 450 mg In 226.393 Dextrose 5% in Water 250 ml @ 0.5 MG/MIN 16.667 mls/hr IV .Q15H WADE Rx#: [id number] Calcium Gluconate in NaCl 100 1 gm In Saline 1 100ml. bag @ 100 mls/hr IVPB ONCE ONE Rx#:[id number] Insulin Regular 100 unit 2.25 13.117 0.567 In Sodium Chloride 0.9% 100 ml @ Per Protocol IV .Q0M WADE Rx#:[id number] Milrinone-D5w Pmx 20 mg 50.445 In Dextrose/Water 1 100ml .bag @ Per Protocol IV . Q0M WADE Rx#:[id number] Norepinephrine 4 mg In 23.199 10.192 Sodium Chloride 0.9% 250 ml @ 0.02 MCG/KG/MIN 3. 597 mls/hr IV .Q24H WADE Rx#:[id number] Sodium Chloride 0.9% 1, 100 000 ml @ 50 mls/hr IV . Q20H WADE Rx#:[id number] Oral 130 Output: Chest Tube Drainage 340 200 Chest Tube Mediastinal 340 200 Urine 820 460 Estimated Blood Loss 450 Other: Voiding Method Indwelling Catheter Indwelling Catheter ABP, PAP, CO, CI - Last Documented Arterial Blood Pressure 114/67 Pulmonary Artery Pressure 25/11 Cardiac Output 2.7 Cardiac Index 1.9 - Exam CONSTITUTIONAL: Sitting up to the bedside chair in the intensive care unit, a ppears comfortable, cooperative, no apparent acute distress. HEENT: Neck is supple, no JVD, no lymphadenopathy. Right IJ Cordis and [place]- Kip catheter in place and functioning. RESPIRATORY: Lungs sounds essentially clear throughout, diminished to her bilateral bases. Respirations are symmetrical and nonlabored. Currently on 2 L nasal cannula with oxygen saturations 99%. Able to achieve 1000 mL on her incentive spirometry. Strong cough. CARDIOVASCULAR: Regular rhythm and rate. S1 and S2 present, negative for S3, gallop or murmur. Sternum is stable. Palpable peripheral pulses bilaterally, +1 edema to her bilateral lower extremities. No calf pain or tenderness noted. Heart hugger in place with patient demonstrating appropriate use. Knee-high ELADIA hose and sequential compression devices in place to his bilateral lower extremities. GASTROINTESTINAL: Abdomen soft, nontender, nondistended. Hypoactive bowel sounds present 4 quadrants. Tolerating clear liquid diet. Denies passing flatus. No guarding or rigidity. GENITOURINARY: [place] present draining clear, yellow urine. Urine output 270 mL in the last 8 hours. INTEGUMENTARY: Skin is warm and dry with no evidence of clubbing or cyanosis. Midline sternal incision clean dry and well approximated, covered with dry intact dressing. NEUROLOGIC: Cranial nerves II through XII intact. No focal deficits. MUSKULOSKELETAL: Able to move all extremities, strength equal bilaterally, generalized weakness. PSYCHIATRIC: Alert and oriented to person place and time, appropriate affect, intact judgment and insight. INVASIVE LINES AND TUBES: Mediastinal chest tubes present and connected to low continuous wall suction, no air leaks present. Mediastinal tube with 130 mL of thin serosanguineous drainage overnight, 550 mL output in the last 24 hours. Atrial epicardial pacemaker wires present, connected to generator, AAI backup rate 80 bpm. Right internal jugular [place]/Cordis, right radial arterial line present. Last CO 2.7, CI 1.9, PA 27/12, SVR 2308 and CVP 10 mmHg. - Allied health notes Allied health notes reviewed: nursing - Labs CBC & Chem 7: 05/04/24 03:53 05/04/24 03:53 Labs: Abnormal Lab Results - Last 24 Hours (Table) 04/27/24 05/03/24 05/03/24 Range/Units 09:50 08:40 08:40 RBC (3.80-5.40) m/uL Hgb (11.4-16.0) gm/dL Hct (34.0-46.0) % Plt Count (150-450) k/uL Lymphocytes # (1.0-4.8) k/uL PT (10.0-12.5) sec INR (<1.2) APTT (22.0-30.0) sec Fibrinogen (200-500) mg/dL ABG pH 7.33 L 7.62 H* (7.35-7.45) ABG pCO2 57 H 28 L (35-45) mmHg ABG pO2 40 L* >420 H (83-108) mmHg ABG HCO3 30 H 29 H (21-25) mmol/L ABG Total CO2 28 H 27 H (19-24) mmol/L ABG O2 Saturation 70.4 L 99.4 H (94-97) % ABG Hematocrit 20 L* (34.0-46.0) % ABG Potassium 6.8 H* (3.4-4.5) mmol/L ABG Ionized Calcium 3.7 L (4.5-5.3) mg/dL ABG Glucose 260 H (75-99) mg/dL ABG Lactic Acid 2.2 H* (0.5-1.6) mmol/L Hemoglobin 6.6 L* (11.4-16.0) gm/dL Potassium (3.5-5.1) mmol/L Chloride (98-107) mmol/L BUN (7-17) mg/dL Glucose (74-99) mg/dL POC Glucose (mg/dL) (70-110) mg/dL Calcium (8.4-10.2) mg/dL Ionized Calcium Samuel (4.5-5.3) mg/dL Magnesium (1.6-2.3) mg/dL AST (14-36) U/L Alkaline Phosphatase (38-126) U/L Total Protein (6.3-8.2) g/dL Albumin (3.5-5.0) g/dL Arterial Blood Potassium 6.8 H* (3.4-4.5) mmol/L Arterial Blood Glucose 260 H (75-99) mg/dL Crossmatch See Detail 05/03/24 05/03/24 05/03/24 Range/Units 08:43 09:15 09:52 RBC (3.80-5.40) m/uL Hgb (11.4-16.0) gm/dL Hct (34.0-46.0) % Plt Count (150-450) k/uL Lymphocytes # (1.0-4.8) k/uL PT (10.0-12.5) sec INR (<1.2) APTT (22.0-30.0) sec Fibrinogen (200-500) mg/dL ABG pH 7.56 H* (7.35-7.45) ABG pCO2 49 H 32 L (35-45) mmHg ABG pO2 267 H >420 H 279 H (83-108) mmHg ABG HCO3 27 H 28 H 27 H (21-25) mmol/L ABG Total CO2 25 H 27 H 25 H (19-24) mmol/L ABG O2 Saturation 97.7 H 99.3 H 97.7 H (94-97) % ABG Hematocrit 21 L 32 L (34.0-46.0) % ABG Potassium 6.3 H* (3.4-4.5) mmol/L ABG Ionized Calcium 3.8 L (4.5-5.3) mg/dL ABG Glucose 111 H 101 H (75-99) mg/dL ABG Lactic Acid (0.5-1.6) mmol/L Hemoglobin 11.3 L 6.8 L* 10.4 L (11.4-16.0) gm/dL Potassium (3.5-5.1) mmol/L Chloride (98-107) mmol/L BUN (7-17) mg/dL Glucose (74-99) mg/dL POC Glucose (mg/dL) (70-110) mg/dL Calcium (8.4-10.2) mg/dL Ionized Calcium Samuel (4.5-5.3) mg/dL Magnesium (1.6-2.3) mg/dL AST (14-36) U/L Alkaline Phosphatase (38-126) U/L Total Protein (6.3-8.2) g/dL Albumin (3.5-5.0) g/dL Arterial Blood Potassium 6.3 H* (3.4-4.5) mmol/L Arterial Blood Glucose 111 H 101 H (75-99) mg/dL Crossmatch 05/03/24 05/03/24 05/03/24 Range/Units 11:20 11:54 12:17 RBC (3.80-5.40) m/uL Hgb (11.4-16.0) gm/dL Hct (34.0-46.0) % Plt Count (150-450) k/uL Lymphocytes # (1.0-4.8) k/uL PT (10.0-12.5) sec INR (<1.2) APTT (22.0-30.0) sec Fibrinogen (200-500) mg/dL ABG pH 7.47 H 7.46 H (7.35-7.45) ABG pCO2 (35-45) mmHg ABG pO2 382 H 390 H 353 H (83-108) mmHg ABG HCO3 29 H 28 H 27 H (21-25) mmol/L ABG Total CO2 28 H 27 H 27 H (19-24) mmol/L ABG O2 Saturation 99.2 H 99.2 H 99.3 H (94-97) % ABG Hematocrit 20 L* 21 L 20 L* (34.0-46.0) % ABG Potassium 6.1 H 6.2 H* 6.1 H (3.4-4.5) mmol/L ABG Ionized Calcium 3.8 L 3.8 L 3.9 L (4.5-5.3) mg/dL ABG Glucose 117 H (75-99) mg/dL ABG Lactic Acid 3.7 H* 3.9 H* 4.1 H* (0.5-1.6) mmol/L Hemoglobin 6.5 L* 6.9 L* 6.5 L* (11.4-16.0) gm/dL Potassium (3.5-5.1) mmol/L Chloride (98-107) mmol/L BUN (7-17) mg/dL Glucose (74-99) mg/dL POC Glucose (mg/dL) (70-110) mg/dL Calcium (8.4-10.2) mg/dL Ionized Calcium Samuel (4.5-5.3) mg/dL Magnesium (1.6-2.3) mg/dL AST (14-36) U/L Alkaline Phosphatase (38-126) U/L Total Protein (6.3-8.2) g/dL Albumin (3.5-5.0) g/dL Arterial Blood Potassium 6.1 H 6.2 H* 6.1 H (3.4-4.5) mmol/L Arterial Blood Glucose 117 H (75-99) mg/dL Crossmatch 05/03/24 05/03/24 05/03/24 Range/Units 13:15 14:10 14:11 RBC 2.76 L (3.80-5.40) m/uL Hgb 8.6 L D (11.4-16.0) gm/dL Hct 26.7 L (34.0-46.0) % Plt Count 67 L D (150-450) k/uL Lymphocytes # (1.0-4.8) k/uL PT (10.0-12.5) sec INR (<1.2) APTT (22.0-30.0) sec Fibrinogen (200-500) mg/dL ABG pH 7.46 H (7.35-7.45) ABG pCO2 (35-45) mmHg ABG pO2 123 H (83-108) mmHg ABG HCO3 (21-25) mmol/L ABG Total CO2 (19-24) mmol/L ABG O2 Saturation 98.5 H (94-97) % ABG Hematocrit 27 L (34.0-46.0) % ABG Potassium (3.4-4.5) mmol/L ABG Ionized Calcium 4.4 L (4.5-5.3) mg/dL ABG Glucose (75-99) mg/dL ABG Lactic Acid 3.4 H* (0.5-1.6) mmol/L Hemoglobin 8.7 L (11.4-16.0) gm/dL Potassium (3.5-5.1) mmol/L Chloride (98-107) mmol/L BUN (7-17) mg/dL Glucose (74-99) mg/dL POC Glucose (mg/dL) 69 L (70-110) mg/dL Calcium (8.4-10.2) mg/dL Ionized Calcium Samuel (4.5-5.3) mg/dL Magnesium (1.6-2.3) mg/dL AST (14-36) U/L Alkaline Phosphatase (38-126) U/L Total Protein (6.3-8.2) g/dL Albumin (3.5-5.0) g/dL Arterial Blood Potassium (3.4-4.5) mmol/L Arterial Blood Glucose (75-99) mg/dL Crossmatch 05/03/24 05/03/24 05/03/24 Range/Units 14:11 14:11 14:11 RBC (3.80-5.40) m/uL Hgb (11.4-16.0) gm/dL Hct (34.0-46.0) % Plt Count (150-450) k/uL Lymphocytes # (1.0-4.8) k/uL PT 16.6 H (10.0-12.5) sec INR 1.6 H (<1.2) APTT 49.8 H (22.0-30.0) sec Fibrinogen 91 L (200-500) mg/dL ABG pH (7.35-7.45) ABG pCO2 (35-45) mmHg ABG pO2 (83-108) mmHg ABG HCO3 (21-25) mmol/L ABG Total CO2 (19-24) mmol/L ABG O2 Saturation (94-97) % ABG Hematocrit (34.0-46.0) % ABG Potassium (3.4-4.5) mmol/L ABG Ionized Calcium (4.5-5.3) mg/dL ABG Glucose (75-99) mg/dL ABG Lactic Acid (0.5-1.6) mmol/L Hemoglobin (11.4-16.0) gm/dL Potassium (3.5-5.1) mmol/L Chloride 109 H (98-107) mmol/L BUN 18 H (7-17) mg/dL Glucose 61 L (74-99) mg/dL POC Glucose (mg/dL) (70-110) mg/dL Calcium 7.6 L (8.4-10.2) mg/dL Ionized Calcium Samuel 4.3 L (4.5-5.3) mg/dL Magnesium 3.4 H (1.6-2.3) mg/dL AST 37 H (14-36) U/L Alkaline Phosphatase 33 L (38-126) U/L Total Protein 4.2 L (6.3-8.2) g/dL Albumin 2.7 L (3.5-5.0) g/dL Arterial Blood Potassium (3.4-4.5) mmol/L Arterial Blood Glucose (75-99) mg/dL Crossmatch 05/03/24 05/03/24 05/03/24 Range/Units 14:20 14:30 15:00 RBC (3.80-5.40) m/uL Hgb (11.4-16.0) gm/dL Hct (34.0-46.0) % Plt Count (150-450) k/uL Lymphocytes # (1.0-4.8) k/uL PT (10.0-12.5) sec INR (<1.2) APTT (22.0-30.0) sec Fibrinogen (200-500) mg/dL ABG pH 7.57 H* (7.35-7.45) ABG pCO2 27 L (35-45) mmHg ABG pO2 259 H (83-108) mmHg ABG HCO3 (21-25) mmol/L ABG Total CO2 25 H (19-24) mmol/L ABG O2 Saturation 98.8 H (94-97) % ABG Hematocrit (34.0-46.0) % ABG Potassium (3.4-4.5) mmol/L ABG Ionized Calcium (4.5-5.3) mg/dL ABG Glucose (75-99) mg/dL ABG Lactic Acid (0.5-1.6) mmol/L Hemoglobin 8.3 L (11.4-16.0) gm/dL Potassium (3.5-5.1) mmol/L Chloride (98-107) mmol/L BUN (7-17) mg/dL Glucose (74-99) mg/dL POC Glucose (mg/dL) 42 L* 153 H (70-110) mg/dL Calcium (8.4-10.2) mg/dL Ionized Calcium Samuel (4.5-5.3) mg/dL Magnesium (1.6-2.3) mg/dL AST (14-36) U/L Alkaline Phosphatase (38-126) U/L Total Protein (6.3-8.2) g/dL Albumin (3.5-5.0) g/dL Arterial Blood Potassium (3.4-4.5) mmol/L Arterial Blood Glucose (75-99) mg/dL Crossmatch 05/03/24 05/03/24 05/03/24 Range/Units 15:31 15:38 15:39 RBC (3.80-5.40) m/uL Hgb (11.4-16.0) gm/dL Hct (34.0-46.0) % Plt Count (150-450) k/uL Lymphocytes # (1.0-4.8) k/uL PT (10.0-12.5) sec INR (<1.2) APTT (22.0-30.0) sec Fibrinogen (200-500) mg/dL ABG pH 7.33 L (7.35-7.45) ABG pCO2 55 H 47 H (35-45) mmHg ABG pO2 35 L* 153 H (83-108) mmHg ABG HCO3 29 H 27 H (21-25) mmol/L ABG Total CO2 30 H 28 H (19-24) mmol/L ABG O2 Saturation 57.6 L 99.2 H (94-97) % ABG Hematocrit (34.0-46.0) % ABG Potassium (3.4-4.5) mmol/L ABG Ionized Calcium (4.5-5.3) mg/dL ABG Glucose (75-99) mg/dL ABG Lactic Acid (0.5-1.6) mmol/L Hemoglobin 8.5 L 8.6 L (11.4-16.0) gm/dL Potassium (3.5-5.1) mmol/L Chloride (98-107) mmol/L BUN (7-17) mg/dL Glucose (74-99) mg/dL POC Glucose (mg/dL) 116 H (70-110) mg/dL Calcium (8.4-10.2) mg/dL Ionized Calcium Samuel (4.5-5.3) mg/dL Magnesium (1.6-2.3) mg/dL AST (14-36) U/L Alkaline Phosphatase (38-126) U/L Total Protein (6.3-8.2) g/dL Albumin (3.5-5.0) g/dL Arterial Blood Potassium (3.4-4.5) mmol/L Arterial Blood Glucose (75-99) mg/dL Crossmatch 05/03/24 05/03/24 05/03/24 Range/Units 17:00 17:05 18:06 RBC 3.19 L (3.80-5.40) m/uL Hgb 9.6 L (11.4-16.0) gm/dL Hct 30.8 L (34.0-46.0) % Plt Count 71 L (150-450) k/uL Lymphocytes # 0.7 L (1.0-4.8) k/uL PT (10.0-12.5) sec INR (<1.2) APTT (22.0-30.0) sec Fibrinogen (200-500) mg/dL ABG pH (7.35-7.45) ABG pCO2 (35-45) mmHg ABG pO2 (83-108) mmHg ABG HCO3 (21-25) mmol/L ABG Total CO2 (19-24) mmol/L ABG O2 Saturation (94-97) % ABG Hematocrit (34.0-46.0) % ABG Potassium (3.4-4.5) mmol/L ABG Ionized Calcium (4.5-5.3) mg/dL ABG Glucose (75-99) mg/dL ABG Lactic Acid (0.5-1.6) mmol/L Hemoglobin (11.4-16.0) gm/dL Potassium (3.5-5.1) mmol/L Chloride (98-107) mmol/L BUN (7-17) mg/dL Glucose (74-99) mg/dL POC Glucose (mg/dL) 164 H 155 H (70-110) mg/dL Calcium (8.4-10.2) mg/dL Ionized Calcium Samuel (4.5-5.3) mg/dL Magnesium (1.6-2.3) mg/dL AST (14-36) U/L Alkaline Phosphatase (38-126) U/L Total Protein (6.3-8.2) g/dL Albumin (3.5-5.0) g/dL Arterial Blood Potassium (3.4-4.5) mmol/L Arterial Blood Glucose (75-99) mg/dL Crossmatch 05/03/24 05/03/24 05/03/24 Range/Units 19:02 19:46 19:47 RBC 2.98 L (3.80-5.40) m/uL Hgb 9.1 L (11.4-16.0) gm/dL Hct 28.8 L (34.0-46.0) % Plt Count 66 L (150-450) k/uL Lymphocytes # 0.5 L (1.0-4.8) k/uL PT (10.0-12.5) sec INR (<1.2) APTT (22.0-30.0) sec Fibrinogen (200-500) mg/dL ABG pH (7.35-7.45) ABG pCO2 (35-45) mmHg ABG pO2 (83-108) mmHg ABG HCO3 (21-25) mmol/L ABG Total CO2 (19-24) mmol/L ABG O2 Saturation (94-97) % ABG Hematocrit (34.0-46.0) % ABG Potassium (3.4-4.5) mmol/L ABG Ionized Calcium (4.5-5.3) mg/dL ABG Glucose (75-99) mg/dL ABG Lactic Acid (0.5-1.6) mmol/L Hemoglobin (11.4-16.0) gm/dL Potassium (3.5-5.1) mmol/L Chloride (98-107) mmol/L BUN (7-17) mg/dL Glucose (74-99) mg/dL POC Glucose (mg/dL) 114 H 126 H (70-110) mg/dL Calcium (8.4-10.2) mg/dL Ionized Calcium Samuel (4.5-5.3) mg/dL Magnesium (1.6-2.3) mg/dL AST (14-36) U/L Alkaline Phosphatase (38-126) U/L Total Protein (6.3-8.2) g/dL Albumin (3.5-5.0) g/dL Arterial Blood Potassium (3.4-4.5) mmol/L Arterial Blood Glucose (75-99) mg/dL Crossmatch 05/03/24 05/03/24 05/03/24 Range/Units 20:43 20:46 21:59 RBC (3.80-5.40) m/uL Hgb (11.4-16.0) gm/dL Hct (34.0-46.0) % Plt Count (150-450) k/uL Lymphocytes # (1.0-4.8) k/uL PT (10.0-12.5) sec INR (<1.2) APTT (22.0-30.0) sec Fibrinogen (200-500) mg/dL ABG pH (7.35-7.45) ABG pCO2 47 H (35-45) mmHg ABG pO2 (83-108) mmHg ABG HCO3 27 H (21-25) mmol/L ABG Total CO2 28 H (19-24) mmol/L ABG O2 Saturation 97.5 H (94-97) % ABG Hematocrit (34.0-46.0) % ABG Potassium (3.4-4.5) mmol/L ABG Ionized Calcium (4.5-5.3) mg/dL ABG Glucose (75-99) mg/dL ABG Lactic Acid (0.5-1.6) mmol/L Hemoglobin 9.4 L (11.4-16.0) gm/dL Potassium (3.5-5.1) mmol/L Chloride (98-107) mmol/L BUN (7-17) mg/dL Glucose (74-99) mg/dL POC Glucose (mg/dL) 121 H 117 H (70-110) mg/dL Calcium (8.4-10.2) mg/dL Ionized Calcium Samuel (4.5-5.3) mg/dL Magnesium (1.6-2.3) mg/dL AST (14-36) U/L Alkaline Phosphatase (38-126) U/L Total Protein (6.3-8.2) g/dL Albumin (3.5-5.0) g/dL Arterial Blood Potassium (3.4-4.5) mmol/L Arterial Blood Glucose (75-99) mg/dL Crossmatch 05/03/24 05/03/24 05/04/24 Range/Units 22:57 23:52 01:10 RBC (3.80-5.40) m/uL Hgb (11.4-16.0) gm/dL Hct (34.0-46.0) % Plt Count (150-450) k/uL Lymphocytes # (1.0-4.8) k/uL PT (10.0-12.5) sec INR (<1.2) APTT (22.0-30.0) sec Fibrinogen (200-500) mg/dL ABG pH (7.35-7.45) ABG pCO2 (35-45) mmHg ABG pO2 (83-108) mmHg ABG HCO3 (21-25) mmol/L ABG Total CO2 (19-24) mmol/L ABG O2 Saturation (94-97) % ABG Hematocrit (34.0-46.0) % ABG Potassium (3.4-4.5) mmol/L ABG Ionized Calcium (4.5-5.3) mg/dL ABG Glucose (75-99) mg/dL ABG Lactic Acid (0.5-1.6) mmol/L Hemoglobin (11.4-16.0) gm/dL Potassium (3.5-5.1) mmol/L Chloride (98-107) mmol/L BUN (7-17) mg/dL Glucose (74-99) mg/dL POC Glucose (mg/dL) 118 H 119 H 113 H (70-110) mg/dL Calcium (8.4-10.2) mg/dL Ionized Calcium Samuel (4.5-5.3) mg/dL Magnesium (1.6-2.3) mg/dL AST (14-36) U/L Alkaline Phosphatase (38-126) U/L Total Protein (6.3-8.2) g/dL Albumin (3.5-5.0) g/dL Arterial Blood Potassium (3.4-4.5) mmol/L Arterial Blood Glucose (75-99) mg/dL Crossmatch 05/04/24 05/04/24 05/04/24 Range/Units 02:01 03:12 03:53 RBC 3.10 L (3.80-5.40) m/uL Hgb 9.5 L (11.4-16.0) gm/dL Hct 30.2 L (34.0-46.0) % Plt Count 64 L (150-450) k/uL Lymphocytes # 0.5 L (1.0-4.8) k/uL PT (10.0-12.5) sec INR (<1.2) APTT (22.0-30.0) sec Fibrinogen (200-500) mg/dL ABG pH (7.35-7.45) ABG pCO2 (35-45) mmHg ABG pO2 (83-108) mmHg ABG HCO3 (21-25) mmol/L ABG Total CO2 (19-24) mmol/L ABG O2 Saturation (94-97) % ABG Hematocrit (34.0-46.0) % ABG Potassium (3.4-4.5) mmol/L ABG Ionized Calcium (4.5-5.3) mg/dL ABG Glucose (75-99) mg/dL ABG Lactic Acid (0.5-1.6) mmol/L Hemoglobin (11.4-16.0) gm/dL Potassium (3.5-5.1) mmol/L Chloride (98-107) mmol/L BUN (7-17) mg/dL Glucose (74-99) mg/dL POC Glucose (mg/dL) 116 H 135 H (70-110) mg/dL Calcium (8.4-10.2) mg/dL Ionized Calcium Samuel (4.5-5.3) mg/dL Magnesium (1.6-2.3) mg/dL AST (14-36) U/L Alkaline Phosphatase (38-126) U/L Total Protein (6.3-8.2) g/dL Albumin (3.5-5.0) g/dL Arterial Blood Potassium (3.4-4.5) mmol/L Arterial Blood Glucose (75-99) mg/dL Crossmatch 05/04/24 05/04/24 05/04/24 Range/Units 03:53 03:53 05:06 RBC (3.80-5.40) m/uL Hgb (11.4-16.0) gm/dL Hct (34.0-46.0) % Plt Count (150-450) k/uL Lymphocytes # (1.0-4.8) k/uL PT (10.0-12.5) sec INR (<1.2) APTT (22.0-30.0) sec Fibrinogen (200-500) mg/dL ABG pH (7.35-7.45) ABG pCO2 (35-45) mmHg ABG pO2 (83-108) mmHg ABG HCO3 (21-25) mmol/L ABG Total CO2 (19-24) mmol/L ABG O2 Saturation (94-97) % ABG Hematocrit (34.0-46.0) % ABG Potassium (3.4-4.5) mmol/L ABG Ionized Calcium (4.5-5.3) mg/dL ABG Glucose (75-99) mg/dL ABG Lactic Acid (0.5-1.6) mmol/L Hemoglobin (11.4-16.0) gm/dL Potassium 5.6 H (3.5-5.1) mmol/L Chloride (98-107) mmol/L BUN 19 H (7-17) mg/dL Glucose 140 H (74-99) mg/dL POC Glucose (mg/dL) 145 H 141 H (70-110) mg/dL Calcium 7.9 L (8.4-10.2) mg/dL Ionized Calcium Samuel (4.5-5.3) mg/dL Magnesium 2.5 H (1.6-2.3) mg/dL AST 65 H (14-36) U/L Alkaline Phosphatase (38-126) U/L Total Protein 4.8 L (6.3-8.2) g/dL Albumin 3.1 L (3.5-5.0) g/dL Arterial Blood Potassium (3.4-4.5) mmol/L Arterial Blood Glucose (75-99) mg/dL Crossmatch 05/04/24 05/04/24 Range/Units 06:25 06:53 RBC (3.80-5.40) m/uL Hgb (11.4-16.0) gm/dL Hct (34.0-46.0) % Plt Count (150-450) k/uL Lymphocytes # (1.0-4.8) k/uL PT (10.0-12.5) sec INR (<1.2) APTT (22.0-30.0) sec Fibrinogen (200-500) mg/dL ABG pH (7.35-7.45) ABG pCO2 (35-45) mmHg ABG pO2 (83-108) mmHg ABG HCO3 (21-25) mmol/L ABG Total CO2 (19-24) mmol/L ABG O2 Saturation (94-97) % ABG Hematocrit (34.0-46.0) % ABG Potassium (3.4-4.5) mmol/L ABG Ionized Calcium (4.5-5.3) mg/dL ABG Glucose (75-99) mg/dL ABG Lactic Acid (0.5-1.6) mmol/L Hemoglobin (11.4-16.0) gm/dL Potassium (3.5-5.1) mmol/L Chloride (98-107) mmol/L BUN (7-17) mg/dL Glucose (74-99) mg/dL POC Glucose (mg/dL) 116 H 111 H (70-110) mg/dL Calcium (8.4-10.2) mg/dL Ionized Calcium Samuel (4.5-5.3) mg/dL Magnesium (1.6-2.3) mg/dL AST (14-36) U/L Alkaline Phosphatase (38-126) U/L Total Protein (6.3-8.2) g/dL Albumin (3.5-5.0) g/dL Arterial Blood Potassium (3.4-4.5) mmol/L Arterial Blood Glucose (75-99) mg/dL Crossmatch - Imaging and Cardiology Chest x-ray: report reviewed, image reviewed Assessment and Plan Assessment: Severe aortic valve regurgitation, status post aortic valve replacement using a 19 mm Inspiris pericardial bioprosthesis Moderate mitral valve regurgitation, status post mitral valve repair using a posterior annuloplasty band 26 mm annuloflex Paroxysmal atrial fibrillation, status post exclusion of the left atrial a ppendage using a 35mm AtriClip Postoperative acute blood loss anemia and thrombocytopenia, expected Mild to moderate tricuspid valve regurgitation Mild pulmonary hypertension Moderate left ventricular dysfunction Hypertension Chronic kidney disease stage III Status post permanent pacemaker placement History of embolic stroke in 2016 with no residual deficits Macular degeneration Lifetime non-smoker Plan: Continue to maximize medical therapy with low dose aspirin, Plavix and beta- pari. Will increase metoprolol tartrate as tolerated. No statin as the patient is sensitive to statins. Wean oxygen as tolerated. Encourage incentive spirometry use 10 times every liseth r while awake. Bronchodilators per pulmonology. Continue Primacor drip, will decrease Primacor drip to 0.125 mcg/kg/min. Continue to monitor hemodynamics. Will monitor daily labs and chest x-rays, electrolyte replacement per protocol. Increase activity as tolerated. PT/OT/cardiac rehab consulted. GI/DVT prophylaxis. Continue subcutaneous heparin. Pain control per current medication regimen. Morphine discontinued, no Toradol at this time due to the patient's chronic kidney disease. Insulin management per internal medicine, preoperative hemoglobin A1c 6.1%. Patient should remain on continuous IV insulin for minimum 48 hours, then may transition to subcutaneous per protocol. Continue right IJ cordis and [place] catheter. Continue to monitor hemodynamics. Start hydralazine 25 mg p.o. every 8 hours for afterload reduction. Continue chest tubes for another 24 hours, monitor output. Continue [place] for another 24 hours, continue to monitor record strict accurate intake and output. Continue amiodarone drip per protocol, once current amiodarone IV piggyback currently infusing is finished, discontinue IV amiodarone. We will start amiodarone 200 mg p.o. daily. Calcium gluconate 1 g IV piggyback x 1 now. More recommendations to follow based on patient's clinical course. Time with Patient: Greater than 30
[2024-05-04] MEDS ORDERED: PANTOPRAZOLE 40 MG/10 ML VIAL IVP SCH (09:00)
[2024-05-04] MEDS ORDERED: MAGNESIUM HYDROXIDE 2,400 MG/30 ML CUP PO PRN (09:00)
[2024-05-04 09:05] LABS: Glucose,Whole Blood 135 mg/dL (70-110)
[2024-05-04 10:03] LABS: Glucose,Whole Blood 169 mg/dL (70-110)
[2024-05-04] MEDS: ACETAMINOPHEN TAB 325 MG TAB PO PRN (10:57)
[2024-05-04 11:12] LABS: Glucose,Whole Blood 140 mg/dL (70-110)
[2024-05-04 11:18] VITALS: BMI 21.1
--- NOTE | 2024-05-04 11:25 | P.NPCON ---
History of Present Illness - Reason for Consult chronic renal failure - History of Present Illness Reason for consultation: Chronic kidney disease History of present illness: Patient is a 79-year-old female seen in renal consultation for chronic kidney disease. Patient has chronic kidney disease stage IIIa with baseline creatinine 1-1.3 secondary to nephrosclerosis. GFR is at baseline. Patient has history of severe aortic valve regurgitation and moderate mitral valve regurgitation and underwent aortic valve replacement and mitral valve repair May 03, 2024. Currently sitting up in chair. Denies chest pain or shortness of breath. Has been voiding. She did have episodes of vomiting overnight. Denies history of diabetes. She is currently on amiodarone drip as well as Primacor. Denies use of nonsteroidals. No gross hematuria or dysuria. Vital signs are stable. General: No acute distress. HEENT: Head exam is unremarkable. On nasal cannula. LUNGS: No audible rhonchi or wheezes. HEART: Rate and Rhythm are regular. ABDOMEN: Nontender. EXTREMITITES: No edema. Past Medical History Past Medical History: Atrial Fibrillation, Heart Failure, CVA/TIA, Eye Disorder, Hearing Disorder / Deafness, Hyperlipidemia, Hypertension, Osteoarthritis (OA), Renal Disease, Skin Disorder Additional Past Medical History / Comment(s): SOB in the evening and through the night has improved with med changes. Tinnitus, bilateral hearing aid use. Diverticular disease, hemorrhoids. Hx kidney stones. hx Anemia. 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 Stage 3 kidney disease. Macular degeneration left eye. Small hiatal hernia. Reddness to cheeks, at times feels tingling. watching shadow by liver. History of Any Multi-Drug Resistant Organisms: None Reported Past Surgical History: Adenoidectomy, Appendectomy, Section, Heart Catheterization, Pacemaker, Tonsillectomy Additional Past Surgical History / Comment(s): SINUS SURGERY, section X 3, CHRISTY, colonoscopy. Past Anesthesia/Blood Transfusion Reactions: No Reported Reaction Additional Past Anesthesia/Blood Transfusion Reaction / Comment(s): Hx blood transfusion with no issues 50 yrs ago. Type of Cardiac Device: Permanent Pacemaker Device Placement Date:: 01/2017 Left chest Smoking Status: Never smoker - Past Family History Sister(s) Family Medical History: Cancer Brother(s) Family Medical History: Cancer, Coronary Artery Disease (CAD) Father Family Medical History: Cancer Additional Family Medical History / Comment(s): Prostate cancer with mets to bones, colon. Mother Family Medical History: Renal Disease Additional Family Medical History / Comment(s): kidney disease Medications and Allergies Home Medications Medication Instructions Recorded Confirmed Type L.acidoph,Paracasei, B.lactis 1 cap PO BID 04/25/22 05/03/24 History [Probiotic] Vit C/E/Zn/Coppr/Lutein/Zeaxan 1 cap PO BID 04/25/22 04/27/24 History [Preservision Areds 2 Softgel] Illumineyes 1 tab PO DAILY 12/30/23 04/27/24 History Magnesium(Unknown Dose) 800 mg PO DIRECTED PRN 12/30/23 05/03/24 History Vitamin B-6/B-12(25mg/100mcg) 1 tab PO Q48H 12/30/23 04/27/24 History Vitamin C 650mg 1 tab PO DAILY 12/30/23 04/27/24 History Vitamin D3 40mcg 80 mcg PO BID 12/30/23 04/27/24 History Metoprolol Tartrate [Lopressor] 25 mg PO TID@0800,1600,2300 #180 01/02/24 05/03/24 Rx tab Amiodarone [Cordarone] 100 mg PO AC-LUNCH 01/06/24 05/03/24 History lisinopriL [Zestril] 2.5 mg PO DAILY 02/03/24 05/03/24 History Furosemide [Lasix] 40 mg PO DAILY PRN 02/23/24 05/03/24 History Apixaban [Eliquis] 5 mg PO BID 02/27/24 05/03/24 History Allergies Allergy/AdvReac Type Severity Reaction Status Date / Time strawberry Allergy Itching Verified 05/03/24 05:51 mold AdvReac sinuses Verified 05/03/24 05:51 [id number] Reductase AdvReac muscle Verified 05/03/24 05:51 Inhibitor aches and lethargy wheat AdvReac stomach Verified 05/03/24 05:51 bloats and lack of energy Yeast AdvReac sore Verified 05/03/24 05:51 throat,sinuses fungus AdvReac sinuses Uncoded 05/03/24 05:51 Physical Exam Vitals: Vital Signs Temp Pulse Resp BP Pulse Ox FiO2 05/04/24 10:15 80 14 95 05/04/24 10:00 80 18 93 L 05/04/24 09:45 79 16 97 05/04/24 09:30 80 12 97 05/04/24 09:15 80 14 96 05/04/24 09:00 80 14 96 05/04/24 08:45 80 15 96 05/04/24 08:30 80 12 97 05/04/24 08:15 80 12 100 05/04/24 08:11 88 18 05/04/24 08:00 98.2 F 80 13 96 05/04/24 07:45 78 12 94 L 05/04/24 07:30 80 16 99 05/04/24 07:15 79 18 100 05/04/24 07:00 79 11 L 98 05/04/24 06:45 80 10 L 99 05/04/24 06:30 98.2 F 80 10 L 97 05/04/24 06:15 80 11 L 92 L 05/04/24 06:00 80 14 92 L 05/04/24 05:45 80 13 90 L 05/04/24 05:30 80 18 98 05/04/24 05:15 80 12 98 05/04/24 05:00 80 10 L 98 05/04/24 04:45 80 10 L 98 05/04/24 04:30 80 11 L 97 05/04/24 04:15 80 16 97 05/04/24 04:00 98.1 F 80 14 98/66 97 05/04/24 03:45 80 11 L 95 05/04/24 03:30 79 17 95 05/04/24 03:15 80 12 96 05/04/24 03:00 80 12 98 05/04/24 02:45 80 11 L 98 05/04/24 02:30 80 10 L 97 05/04/24 02:15 80 12 97 05/04/24 02:00 80 11 L 96 05/04/24 01:45 80 10 L 96 05/04/24 01:30 80 12 97 05/04/24 01:15 80 14 96 05/04/24 01:00 80 13 98 05/04/24 00:45 80 12 98 05/04/24 00:30 80 12 95 05/04/24 00:15 80 16 95 05/04/24 00:00 97.9 F 80 14 98/66 97 05/03/24 23:45 80 12 98 05/03/24 23:30 80 13 96 05/03/24 23:15 80 13 95 05/03/24 23:00 80 15 97 05/03/24 22:45 80 12 97 05/03/24 22:30 80 16 97 05/03/24 22:15 80 11 L 97 05/03/24 22:00 80 13 98 05/03/24 21:45 80 14 97 05/03/24 21:30 80 11 L 96 05/03/24 21:15 80 10 L 96 05/03/24 21:00 80 11 L 108/71 95 05/03/24 20:45 80 10 L 96 05/03/24 20:30 80 11 L 96 05/03/24 20:15 80 13 98 05/03/24 20:00 98.8 F 80 16 92/59 97 50 05/03/24 19:45 80 12 96 05/03/24 19:30 80 12 98 05/03/24 19:15 79 12 97 05/03/24 19:00 80 12 97 05/03/24 18:45 80 12 97 05/03/24 18:30 80 12 97 05/03/24 18:15 80 13 97 05/03/24 18:00 80 12 98 05/03/24 17:50 78 12 99 05/03/24 17:40 79 13 99 05/03/24 17:30 79 12 99 05/03/24 17:20 77 12 99 05/03/24 17:10 78 12 100 05/03/24 17:00 79 12 100 05/03/24 16:50 78 13 100 05/03/24 16:40 77 12 100 05/03/24 16:30 77 12 100 05/03/24 16:20 79 13 100 05/03/24 16:10 78 12 100 05/03/24 16:00 98.6 F 79 12 100 50 05/03/24 15:59 50 05/03/24 15:51 80 05/03/24 15:50 80 12 100 50 05/03/24 15:47 50 05/03/24 15:40 80 12 100 50 05/03/24 15:30 79 12 100 50 05/03/24 15:20 79 12 100 60 05/03/24 15:10 79 12 100 60 05/03/24 15:00 98.2 F 80 12 100 100 05/03/24 14:50 79 12 100 100 05/03/24 14:40 78 12 100 100 05/03/24 14:30 79 12 100 100 05/03/24 14:28 100 05/03/24 14:20 80 12 100 100 05/03/24 14:10 80 12 100 100 05/03/24 14:06 100 05/03/24 14:04 100 05/03/24 14:00 97.3 F L 80 12 100 100 Intake and Output 05/03/24 05/04/24 05/04/24 22:59 06:59 14:59 Intake Total 294.162 0599.947 220.240 Output Total 775 445 150 Balance -2.351 721.947 70.240 Intake: IV 533 751 207 0.9 PRESSURE BAG 72 81 27 ACETAMINOPHEN IV (For NPO 71 100 ) 710 mg In Empty Bag 1 bag @ 284 mls/hr IVPB Q6HR [facility] Rx#:[id number] CO/CI 140 70 30 Sodium Chloride 0.9% 1, 150 450 150 000 ml @ 30 mls/hr IV . Q24H [facility] Rx#:[id number] ceFAZolin 2 gm In Sodium 100 50 Chloride 0.9% 50 ml @ 100 mls/hr IVPB ONCE ONE Rx# :[id number] Intake, IV Titration 239.649 285.947 13.240 Amount Amiodarone 450 mg In 226.393 Dextrose 5% in Water 250 ml @ 0.5 MG/MIN 16.667 mls/hr IV .Q15H [facility] Rx#: [id number] Calcium Gluconate in NaCl 100 1 gm In Saline 1 100ml. bag @ 100 mls/hr IVPB ONCE ONE Rx#:[id number] Insulin Regular 100 unit 6.258 9.109 2.384 In Sodium Chloride 0.9% 100 ml @ Per Protocol IV .Q0M [facility] Rx#:[id number] Milrinone-D5w Pmx 20 mg 50.445 10.856 In Dextrose/Water 1 100ml .bag @ Per Protocol IV . Q0M [facility] Rx#:[id number] Norepinephrine 4 mg In 33.391 Sodium Chloride 0.9% 250 ml @ 0.02 MCG/KG/MIN 3. 597 mls/hr IV .Q24H [facility] Rx#:[id number] Sodium Chloride 0.9% 1, 100 000 ml @ 30 mls/hr IV . Q24H [facility] Rx#:[id number] Oral 130 Output: Chest Tube Drainage 400 140 60 Chest Tube Mediastinal 400 140 60 Urine 375 305 90 Other: Voiding Method Indwelling Catheter Indwelling Catheter Indwelling Catheter Weight 50.7 kg ABP, PAP, CO, CI - Last 8 Hours Arterial Blood Pressure 103/60 Arterial Blood Pressure 101/64 Arterial Blood Pressure 108/61 Arterial Blood Pressure 112/62 Arterial Blood Pressure 113/61 Arterial Blood Pressure 117/63 Arterial Blood Pressure 121/66 Arterial Blood Pressure 105/58 Arterial Blood Pressure 108/61 Arterial Blood Pressure 115/63 Arterial Blood Pressure 110/62 Arterial Blood Pressure 112/61 Arterial Blood Pressure 120/69 Arterial Blood Pressure 114/67 Arterial Blood Pressure 113/66 Arterial Blood Pressure 113/66 Arterial Blood Pressure 109/64 Arterial Blood Pressure 113/65 Arterial Blood Pressure 103/61 Arterial Blood Pressure 124/75 Arterial Blood Pressure 89/54 Arterial Blood Pressure 93/56 Arterial Blood Pressure 90/52 Arterial Blood Pressure 106/63 Arterial Blood Pressure 97/59 Arterial Blood Pressure 97/58 Arterial Blood Pressure 108/62 Arterial Blood Pressure 96/58 Arterial Blood Pressure 100/60 Pulmonary Artery Pressure 30/11 Pulmonary Artery Pressure 35/14 Pulmonary Artery Pressure 31/12 Pulmonary Artery Pressure 33/12 Pulmonary Artery Pressure 34/12 Pulmonary Artery Pressure 33/12 Pulmonary Artery Pressure 35/13 Pulmonary Artery Pressure 32/10 Pulmonary Artery Pressure 32/11 Pulmonary Artery Pressure 31/11 Pulmonary Artery Pressure 31/11 Pulmonary Artery Pressure 35/13 Pulmonary Artery Pressure 34/13 Pulmonary Artery Pressure 25/11 Pulmonary Artery Pressure 26/11 Pulmonary Artery Pressure 27/12 Pulmonary Artery Pressure 25/10 Pulmonary Artery Pressure 0/0 Pulmonary Artery Pressure 26/11 Pulmonary Artery Pressure 39/22 Pulmonary Artery Pressure 27/12 Pulmonary Artery Pressure 25/11 Pulmonary Artery Pressure 25/11 Pulmonary Artery Pressure 29/13 Pulmonary Artery Pressure 28/12 Pulmonary Artery Pressure 27/15 Pulmonary Artery Pressure 30/14 Pulmonary Artery Pressure 31/15 Pulmonary Artery Pressure 30/15 Cardiac Output 3.3 Cardiac Output 3.3 Cardiac Output 3.3 Cardiac Output 3.3 Cardiac Output 3.3 Cardiac Output 3.3 Cardiac Output 3.3 Cardiac Output 3.3 Cardiac Output 3.3 Cardiac Output 3.3 Cardiac Output 2.7 Cardiac Output 2.7 Cardiac Output 2.7 Cardiac Output 2.7 Cardiac Output 3.2 Cardiac Index 2.3 Cardiac Index 2.3 Cardiac Index 2.3 Cardiac Index 2.3 Cardiac Index 2.3 Cardiac Index 2.3 Cardiac Index 2.3 Cardiac Index 2.3 Cardiac Index 2.3 Cardiac Index 2.3 Cardiac Index 1.9 Cardiac Index 1.9 Cardiac Index 1.9 Cardiac Index 1.9 Cardiac Index 2.2 Results - Lab Results Most recent lab results ABG pH 7.37 (7.35-7.45) 05/03/24 20:43 ABG pCO2 47 mmHg (35-45) H 05/03/24 20:43 ABG pO2 96 mmHg (83-108) 05/03/24 20:43 ABG HCO3 27 mmol/L (21-25) H 05/03/24 20:43 ABG O2 Saturation 97.5 % (94-97) H 05/03/24 20:43 Calcium 7.9 mg/dL (8.4-10.2) L 05/04/24 03:53 Magnesium 2.5 mg/dL (1.6-2.3) H 05/04/24 03:53 05/04/24 03:53 05/04/24 03:53 Assessment and Plan Plan: Assessment: 1. Chronic kidney disease stage IIIa with baseline creatinine 1-1.3 secondary to nephrosclerosis. 2. Status post aortic valve replacement and mitral valve repair May 03, 2024. 3. Mild hyperkalemia secondary to underlying CKD and use of KHADIJAH inhibitor. 4. Anemia. Rule out iron deficiency. Plan: Lokelma 10 g once today. Hep-Lock IV fluids. Repeat potassium level this afternoon. Avoid nephrotoxins. Check iron studies. Continue to monitor renal function and urine output. Avoid magnesium containing laxatives as magnesium level is high. Thank you for the consultation. I will continue to follow the patient with you during her hospital stay.
--- NOTE | 2024-05-04 11:35 | CONS ---
CONSULTATION HISTORY OF PRESENT ILLNESS: Jenise is a 79-year-old lady, who is admitted to hospital electively for aortic valve replacement. She has history of severe aortic regurgitation involving a tricuspid aortic valve with moderate aortic regurgitation. The patient underwent surgery yesterday by Dr. Hammond and it involved aortic valve replacement with a pericardial bioprosthesis and mitral valve repair with an annuloplasty and exclusion of the left atrial appendage with an AtriClip. This morning, the patient is extubated, has a paced rhythm and is stable hemodynamically. She is currently on amiodarone, hydralazine 25 p.o. q.8, Lopressor 12.5 b.i.d. Other than the musculoskeletal pain related to recent surgery, she is doing well. PAST MEDICAL HISTORY: Significant for valvular heart disease, history of atrial fibrillation, and hypertension. MEDICATIONS: At home included, 1. Eliquis 5 b.i.d. 2. Amiodarone 100 daily. 3. Lopressor 25 t.i.d. 4. Zestril. ALLERGIES: The patient is allergic to statins. FAMILY HISTORY: Negative for premature coronary artery disease. SOCIAL HISTORY: Negative for smoking, EtOH abuse, or drug abuse. REVIEW OF SYSTEMS: review of systems has been performed. Pertinents are as documented. PHYSICAL EXAMINATION: VITAL SIGNS: Heart rate is 80 beats per minute, blood pressure is 103/62, respiratory rate is 18. CHEST: Reveals diminished air entry at the bases. HEART: Reveals first and second heart sounds. No gallop. ABDOMEN: Soft. EXTREMITIES: Did not reveal any edema. Peripheral pulses are felt. ASSESSMENT: Severe aortic regurgitation, status post aortic valve replacement, moderate mitral regurgitation, status post mitral valve repair, history of atrial fibrillation, status post AtriClip. PLAN: Pt is doing well has permanent pacer consider resuming eliquis when feasible MMODL / IJN: [id number] / MTDNeeraj
[2024-05-04 11:59] LABS: Glucose,Whole Blood 119 mg/dL (70-110)
[2024-05-04 13:08] LABS: Glucose,Whole Blood 174 mg/dL (70-110)
[2024-05-04 14:14] LABS: Glucose,Whole Blood 151 mg/dL (70-110)
[2024-05-04 15:14] LABS: Glucose,Whole Blood 130 mg/dL (70-110)
[2024-05-04 15:19] LABS: % Iron Saturation 10.39 (12.00-45.00)
[2024-05-04 16:03] LABS: Glucose,Whole Blood 128 mg/dL (70-110)
--- NOTE | 2024-05-04 16:04 | P.CONS ---
History of Present Illness - Reason for Consult Consult date: 05/04/24 Medical management Requesting physician: Bautista Hammond - Chief Complaint Aortic valve replacement etc. - History of Present Illness This is a pleasant 79year-old patient, follows with Dr. Thayer. 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 Kimbrough macular degeneration. Patient yesterday underwent arctic valve replacement with a bioprosthesis, mitral valve repair with annuloplasty, exclusion of left atrial appendage using a clip,. Today patient is up in a chair. Extubated. Drips include IV insulin, milrinone, amiodarone. Plan to being switched over to p.o. Paced rhythm. Has to chest tubes mediastinal. Clear liquid diet. Doing about 1000 cc on incentive spirometry. Review of systems: GEN.: Tired EYES: None HEENT: [Decreased hearing NECK: None RESPIRATORY: Shortness of breath CARDIOVASCULAR: No edema GASTROINTESTINAL: None GENITOURINARY: Urine stress incontinence MUSCULOSKELETAL: Joint pains LYMPHATICS: None HEMATOLOGICAL: None PSYCHIATRY: None NEUROLOGICAL: None Social history: Lives alone. Denies any alcohol or smoking history. Physical examination: VITAL SIGNS: 99, 80, 20, 107 x 60, 97% on 3 L GENERAL: BMI 21.1, sitting up in chair awake a bit tired EYES: Pupils equal. Conjunctiva clifford l. HEENT: External appearance of nose and ears normal, oral cavity grossly normal. Decreased hearing NECK: JVD unable to assess; masses not palpable. HEART: Heart sounds irregular; no edema. LUNGS: Respiratory rate increased; i diminished breath sounds ABDOMEN: Soft, nontender, liver spleen not palpable, no masses palpable. PSYCH: Alert and oriented x3; mood and affect clifford l. MUSCULOSKELETAL:No Clubbing/cyanosis;muscles-grossly intact. OA INVESTIGATIONS, reviewed in the clinical context: May 04, 2024: White count 8.7 hemoglobin 9.5 platelets 64 sodium 137 potassium 5.6 BUN 19 creatinine 0.87 magnesium 2.5 iron 16 TIBC 154% saturation 10.3 transferrin 110 ferritin 176 Chest x-ray film personally reviewed by me-some venous prominence. Pacemaker Previous April 27, 2024: Hemoglobin 14.5 platelets 210 2D echocardiogram [April 29, 2023] EF 40%. Moderate MR. Severe TR. Severe pulmonary hypertension. Severe AR. Cardiac catheterization [April 2022] mild nonobstructive CAD Assessment plan: -aorctic valve replacement with a bioprosthesis, mitral valve repair with annuloplasty, exclusion of left atrial appendage using a clip, on May 03, [address] Hammond [Prior moderate mitral regurgitation, severe tricuspid regurgitation, severe aortic regurgitation] Patient currently has 2 chest tubes [mediastinum] in place -History of atrial fibrillation. Currently paced rhythm. Lopressor. Cordarone -Acute postprocedure blood loss anemia expected from surgery Follow hemoglobin closely -Dilutional thrombocytopenia. Preoperative platelets 210 Follow closely -Hyperkalemia Calcium gluconate, insulin given. -Hard of hearing - chronic congestive heart failure exacerbation from systolic dysfunction nonischemic cardiomyopathy EF 40%, Follow fluid status -Severe secondary pulmonary hypertension -Essential hypertension Lopressor. Hydralazine -Primary osteoarthritis Tylenol as needed -Colonic diverticulosis, asymptomatic -Chronic kidney disease stage IIIa, baseline creatinine from 1 2-1.3, secondary nephrosclerosis Follows with Dr. Kimbrough outpatient -Pacemaker 2017 -Full code Discussed with patient. Thank you Dr. Hammond Past Medical History Past Medical History: Atrial Fibrillation, Heart Failure, CVA/TIA, Eye Disorder, Hearing Disorder / Deafness, Hyperlipidemia, Hypertension, Osteoarthritis (OA), Renal Disease, Skin Disorder Additional Past Medical History / Comment(s): SOB in the evening and through the night has improved with med changes. Tinnitus, bilateral hearing aid use. Diverticular disease, hemorrhoids. Hx kidney stones. hx Anemia. 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 Stage 3 kidney disease. Macular degeneration left eye. Small hiatal hernia. Reddness to cheeks, at times feels tingling. watching shadow by liver. History of Any Multi-Drug Resistant Organisms: None Reported Past Surgical History: Adenoidectomy, Appendectomy, Section, Heart Catheterization, Pacemaker, Tonsillectomy Additional Past Surgical History / Comment(s): SINUS SURGERY, section X3, CHRISTY, colonoscopy. Past Anesthesia/Blood Transfusion Reactions: No Reported Reaction Additional Past Anesthesia/Blood Transfusion Reaction / Comm: Hx blood transfusion with no issues 50 yrs ago. Type of Cardiac Device: Permanent Pacemaker Device Placement Date:: 01/2017 Left chest Smoking Status: Never smoker - Past Family History Sister(s) Family Medical History: Cancer Brother(s) Family Medical History: Cancer, Coronary Artery Disease (CAD) Father Family Medical History: Cancer Additional Family Medical History / Comment(s): Prostate cancer with mets to bones, colon. Mother Family Medical History: Renal Disease Additional Family Medical History / Comment(s): kidney disease Medications and Allergies Home Medications Medication Instructions Recorded Confirmed Type L.acidoph,Paracasei, B.lactis 1 cap PO BID 04/25/22 05/03/24 History [Probiotic] Vit C/E/Zn/Coppr/Lutein/Zeaxan 1 cap PO BID 04/25/22 04/27/24 History [Preservision Areds 2 Softgel] Illumineyes 1 tab PO DAILY 12/30/23 04/27/24 History Magnesium(Unknown Dose) 800 mg PO DIRECTED PRN 12/30/23 05/03/24 History Vitamin B-6/B-12(25mg/100mcg) 1 tab PO Q48H 12/30/23 04/27/24 History Vitamin C 650mg 1 tab PO DAILY 12/30/23 04/27/24 History Vitamin D3 40mcg 80 mcg PO BID 12/30/23 04/27/24 History Metoprolol Tartrate [Lopressor] 25 mg PO TID@0800,1600,2300 #180 01/02/24 05/03/24 Rx tab Amiodarone [Cordarone] 100 mg PO AC-LUNCH 01/06/24 05/03/24 History lisinopriL [Zestril] 2.5 mg PO DAILY 02/03/24 05/03/24 History Furosemide [Lasix] 40 mg PO DAILY PRN 02/23/24 05/03/24 History Apixaban [Eliquis] 5 mg PO BID 02/27/24 05/03/24 History Allergies Allergy/AdvReac Type Severity Reaction Status Date / Time strawberry Allergy Itching Verified 05/03/24 05:51 mold AdvReac sinuses Verified 05/03/24 05:51 [id number] Reductase AdvReac muscle Verified 05/03/24 05:51 Inhibitor aches and lethargy wheat AdvReac stomach Verified 05/03/24 05:51 bloats and lack of energy Yeast AdvReac sore Verified 05/03/24 05:51 throat,sinuses fungus AdvReac sinuses Uncoded 05/03/24 05:51 Physical Exam Vitals: Vital Signs Temp Pulse Resp BP Pulse Ox FiO2 05/04/24 10:15 80 14 95 05/04/24 10:00 80 18 93 L 05/04/24 09:45 79 16 97 05/04/24 09:30 80 12 97 05/04/24 09:15 80 14 96 05/04/24 09:00 80 14 96 05/04/24 08:45 80 15 96 05/04/24 08:30 80 12 97 05/04/24 08:15 80 12 100 05/04/24 08:11 88 18 05/04/24 08:00 98.2 F 80 13 96 05/04/24 07:45 78 12 94 L 05/04/24 07:30 80 16 99 05/04/24 07:15 79 18 100 05/04/24 07:00 79 11 L 98 05/04/24 06:45 80 10 L 99 05/04/24 06:30 98.2 F 80 10 L 97 05/04/24 06:15 80 11 L 92 L 05/04/24 06:00 80 14 92 L 05/04/24 05:45 80 13 90 L 05/04/24 05:30 80 18 98 05/04/24 05:15 80 12 98 05/04/24 05:00 80 10 L 98 05/04/24 04:45 80 10 L 98 05/04/24 04:30 80 11 L 97 05/04/24 04:15 80 16 97 05/04/24 04:00 98.1 F 80 14 98/66 97 05/04/24 03:45 80 11 L 95 05/04/24 03:30 79 17 95 05/04/24 03:15 80 12 96 05/04/24 03:00 80 12 98 05/04/24 02:45 80 11 L 98 05/04/24 02:30 80 10 L 97 05/04/24 02:15 80 12 97 05/04/24 02:00 80 11 L 96 05/04/24 01:45 80 10 L 96 05/04/24 01:30 80 12 97 03/11/25 01:15 80 14 96 05/04/24 01:00 80 13 98 05/04/24 00:45 80 12 98 05/04/24 00:30 80 12 95 05/04/24 00:15 80 16 95 05/04/24 00:00 97.9 F 80 14 98/66 97 05/03/24 23:45 80 12 98 05/03/24 23:30 80 13 96 05/03/24 23:15 80 13 95 05/03/24 23:00 80 15 97 05/03/24 22:45 80 12 97 05/03/24 22:30 80 16 97 05/03/24 22:15 80 11 L 97 05/03/24 22:00 80 13 98 05/03/24 21:45 80 14 97 05/03/24 21:30 80 11 L 96 05/03/24 21:15 80 10 L 96 05/03/24 21:00 80 11 L 108/71 95 05/03/24 20:45 80 10 L 96 05/03/24 20:30 80 11 L 96 05/03/24 20:15 80 13 98 05/03/24 20:00 98.8 F 80 16 92/59 97 50 05/03/24 19:45 80 12 96 05/03/24 19:30 80 12 98 05/03/24 19:15 79 12 97 05/03/24 19:00 80 12 97 05/03/24 18:45 80 12 97 05/03/24 18:30 80 12 97 05/03/24 18:15 80 13 97 05/03/24 18:00 80 12 98 05/03/24 17:50 78 12 99 05/03/24 17:40 79 13 99 05/03/24 17:30 79 12 99 05/03/24 17:20 77 12 99 05/03/24 17:10 78 12 100 05/03/24 17:00 79 12 100 05/03/24 16:50 78 13 100 05/03/24 16:40 77 12 100 05/03/24 16:30 77 12 100 05/03/24 16:20 79 13 100 05/03/24 16:10 78 12 100 05/03/24 16:00 98.6 F 79 12 100 50 05/03/24 15:59 50 0310/25 15:51 80 05/03/24 15:50 80 12 100 50 05/03/24 15:47 50 05/03/24 15:40 80 12 100 50 05/03/24 15:30 79 12 100 50 05/03/24 15:20 79 12 100 60 05/03/24 15:10 79 12 100 60 05/03/24 15:00 98.2 F 80 12 100 100 05/03/24 14:50 79 12 100 100 05/03/24 14:40 78 12 100 100 05/03/24 14:30 79 12 100 100 05/03/24 14:28 100 05/03/24 14:20 80 12 100 100 05/03/24 14:10 80 12 100 100 05/03/24 14:06 100 05/03/24 14:04 100 05/03/24 14:00 97.3 F L 80 12 100 100 Intake and Output 05/03/24 05/04/24 05/04/24 22:59 06:59 14:59 Intake Total 639.591 8010.947 220.240 Output Total 775 445 150 Balance -2.351 721.947 70.240 Intake: IV 533 751 207 0.9 PRESSURE BAG 72 81 27 ACETAMINOPHEN IV (For NPO 71 100 ) 710 mg In Empty Bag 1 bag @ 284 mls/hr IVPB Q6HR [facility] Rx#:[id number] CO/CI 140 70 30 Sodium Chloride 0.9% 1, 150 450 150 000 ml @ 30 mls/hr IV . Q24H [facility] Rx#:[id number] ceFAZolin 2 gm In Sodium 100 50 Chloride 0.9% 50 ml @ 100 mls/hr IVPB ONCE ONE Rx# :[id number] Intake, IV Titration 239.649 285.947 13.240 Amount Amiodarone 450 mg In 226.393 Dextrose 5% in Water 250 ml @ 0.5 MG/MIN 16.667 mls/hr IV .Q15H [facility] Rx#: [id number] Calcium Gluconate in NaCl 100 1 gm In Saline 1 100ml. bag @ 100 mls/hr IVPB ONCE ONE Rx#:[id number] Insulin Regular 100 unit 6.258 9.109 2.384 In Sodium Chloride 0.9% 100 ml @ Per Protocol IV .Q0M [facility] Rx#:[id number] Milrinone-D5w Pmx 20 mg 50.445 10.856 In Dextrose/Water 1 100ml .bag @ Per Protocol IV . Q0M [facility] Rx#:[id number] Norepinephrine 4 mg In 33.391 Sodium Chloride 0.9% 250 ml @ 0.02 MCG/KG/MIN 3. 597 mls/hr IV .Q24H [facility] Rx#:[id number] Sodium Chloride 0.9% 1, 100 000 ml @ 30 mls/hr IV . Q24H [facility] Rx#:[id number] Oral 130 Output: Chest Tube Drainage 400 140 60 Chest Tube Mediastinal 400 140 60 Urine 375 305 90 Other: Voiding Method Indwelling Catheter Indwelling Catheter Indwelling Catheter Weight 50.7 kg ABP, PAP, CO, CI - Last 8 Hours Arterial Blood Pressure 103/60 Arterial Blood Pressure 101/64 Arterial Blood Pressure 108/61 Arterial Blood Pressure 112/62 Arterial Blood Pressure 113/61 Arterial Blood Pressure 117/63 Arterial Blood Pressure 121/66 Arterial Blood Pressure 105/58 Arterial Blood Pressure 108/61 Arterial Blood Pressure 115/63 Arterial Blood Pressure 110/62 Arterial Blood Pressure 112/61 Arterial Blood Pressure 120/69 Arterial Blood Pressure 114/67 Arterial Blood Pressure 113/66 Arterial Blood Pressure 113/66 Arterial Blood Pressure 109/64 Arterial Blood Pressure 113/65 Arterial Blood Pressure 103/61 Arterial Blood Pressure 124/75 Arterial Blood Pressure 89/54 Arterial Blood Pressure 93/56 Arterial Blood Pressure 90/52 Arterial Blood Pressure 106/63 Arterial Blood Pressure 97/59 Arterial Blood Pressure 97/58 Arterial Blood Pressure 108/62 Arterial Blood Pressure 96/58 Arterial Blood Pressure 100/60 Pulmonary Artery Pressure 30/11 Pulmonary Artery Pressure 35/14 Pulmonary Artery Pressure 31/12 Pulmonary Artery Pressure 33/12 Pulmonary Artery Pressure 34/12 Pulmonary Artery Pressure 33/12 Pulmonary Artery Pressure 35/13 Pulmonary Artery Pressure 32/10 Pulmonary Artery Pressure 32/11 Pulmonary Artery Pressure 31/11 Pulmonary Artery Pressure 31/11 Pulmonary Artery Pressure 35/13 Pulmonary Artery Pressure 34/13 Pulmonary Artery Pressure 25/11 Pulmonary Artery Pressure 26/11 Pulmonary Artery Pressure 27/12 Pulmonary Artery Pressure 25/10 Pulmonary Artery Pressure 0/0 Pulmonary Artery Pressure 26/11 Pulmonary Artery Pressure 39/22 Pulmonary Artery Pressure 27/12 Pulmonary Artery Pressure 25/11 Pulmonary Artery Pressure 25/11 Pulmonary Artery Pressure 29/13 Pulmonary Artery Pressure 28/12 Pulmonary Artery Pressure 27/15 Pulmonary Artery Pressure 30/14 Pulmonary Artery Pressure 31/15 Pulmonary Artery Pressure 30/15 Cardiac Output 3.3 Cardiac Output 3.3 Cardiac Output 3.3 Cardiac Output 3.3 Cardiac Output 3.3 Cardiac Output 3.3 Cardiac Output 3.3 Cardiac Output 3.3 Cardiac Output 3.3 Cardiac Output 3.3 Cardiac Output 2.7 Cardiac Output 2.7 Cardiac Output 2.7 Cardiac Output 2.7 Cardiac Output 3.2 Cardiac Index 2.3 Cardiac Index 2.3 Cardiac Index 2.3 Cardiac Index 2.3 Cardiac Index 2.3 Cardiac Index 2.3 Cardiac Index 2.3 Cardiac Index 2.3 Cardiac Index 2.3 Cardiac Index 2.3 Cardiac Index 1.9 Cardiac Index 1.9 Cardiac Index 1.9 Cardiac Index 1.9 Cardiac Index 2.2 Results CBC & Chem 7: 05/04/24 03:53 05/04/24 14:14 Labs: Abnormal Lab Results - Last 24 Hours (Table) 04/27/24 05/03/24 05/03/24 Range/Units 09:50 08:40 08:40 RBC (3.80-5.40) m/uL Hgb (11.4-16.0) gm/dL Hct (34.0-46.0) % Plt Count (150-450) k/uL Lymphocytes # (1.0-4.8) k/uL PT (10.0-12.5) sec INR (<1.2) APTT (22.0-30.0) sec Fibrinogen (200-500) mg/dL ABG pH 7.33 L 7.62 H* (7.35-7.45) ABG pCO2 57 H 28 L (35-45) mmHg ABG pO2 40 L* >420 H (83-108) mmHg ABG HCO3 30 H 29 H (21-25) mmol/L ABG Total CO2 28 H 27 H (19-24) mmol/L ABG O2 Saturation 70.4 L 99.4 H (94-97) % ABG Hematocrit 20 L* (34.0-46.0) % ABG Potassium 6.8 H* (3.4-4.5) mmol/L ABG Ionized Calcium 3.7 L (4.5-5.3) mg/dL ABG Glucose 260 H (75-99) mg/dL ABG Lactic Acid 2.2 H* (0.5-1.6) mmol/L Hemoglobin 6.6 L* (11.4-16.0) gm/dL Potassium (3.5-5.1) mmol/L Chloride (98-107) mmol/L BUN (7-17) mg/dL Glucose (74-99) mg/dL POC Glucose (mg/dL) (70-110) mg/dL Calcium (8.4-10.2) mg/dL Ionized Calcium Samuel (4.5-5.3) mg/dL Magnesium (1.6-2.3) mg/dL AST (14-36) U/L Alkaline Phosphatase (38-126) U/L Total Protein (6.3-8.2) g/dL Albumin (3.5-5.0) g/dL Arterial Blood Potassium 6.8 H* (3.4-4.5) mmol/L Arterial Blood Glucose 260 H (75-99) mg/dL Crossmatch See Detail 05/03/24 05/03/24 05/03/24 Range/Units 08:43 09:15 09:52 RBC (3.80-5.40) m/uL Hgb (11.4-16.0) gm/dL Hct (34.0-46.0) % Plt Count (150-450) k/uL Lymphocytes # (1.0-4.8) k/uL PT (10.0-12.5) sec INR (<1.2) APTT (22.0-30.0) sec Fibrinogen (200-500) mg/dL ABG pH 7.56 H* (7.35-7.45) ABG pCO2 49 H 32 L (35-45) mmHg ABG pO2 267 H >420 H 279 H (83-108) mmHg ABG HCO3 27 H 28 H 27 H (21-25) mmol/L ABG Total CO2 25 H 27 H 25 H (19-24) mmol/L ABG O2 Saturation 97.7 H 99.3 H 97.7 H (94-97) % ABG Hematocrit 21 L 32 L (34.0-46.0) % ABG Potassium 6.3 H* (3.4-4.5) mmol/L ABG Ionized Calcium 3.8 L (4.5-5.3) mg/dL ABG Glucose 111 H 101 H (75-99) mg/dL ABG Lactic Acid (0.5-1.6) mmol/L Hemoglobin 11.3 L 6.8 L* 10.4 L (11.4-16.0) gm/dL Potassium (3.5-5.1) mmol/L Chloride (98-107) mmol/L BUN (7-17) mg/dL Glucose (74-99) mg/dL POC Glucose (mg/dL) (70-110) mg/dL Calcium (8.4-10.2) mg/dL Ionized Calcium Samuel (4.5-5.3) mg/dL Magnesium (1.6-2.3) mg/dL AST (14-36) U/L Alkaline Phosphatase (38-126) U/L Total Protein (6.3-8.2) g/dL Albumin (3.5-5.0) g/dL Arterial Blood Potassium 6.3 H* (3.4-4.5) mmol/L Arterial Blood Glucose 111 H 101 H (75-99) mg/dL Crossmatch 05/03/24 05/03/24 05/03/24 Range/Units 11:20 11:54 12:17 RBC (3.80-5.40) m/uL Hgb (11.4-16.0) gm/dL Hct (34.0-46.0) % Plt Count (150-450) k/uL Lymphocytes # (1.0-4.8) k/uL PT (10.0-12.5) sec INR (<1.2) APTT (22.0-30.0) sec Fibrinogen (200-500) mg/dL ABG pH 7.47 H 7.46 H (7.35-7.45) ABG pCO2 (35-45) mmHg ABG pO2 382 H 390 H 353 H (83-108) mmHg ABG HCO3 29 H 28 H 27 H (21-25) mmol/L ABG Total CO2 28 H 27 H 27 H (19-24) mmol/L ABG O2 Saturation 99.2 H 99.2 H 99.3 H (94-97) % ABG Hematocrit 20 L* 21 L 20 L* (34.0-46.0) % ABG Potassium 6.1 H 6.2 H* 6.1 H (3.4-4.5) mmol/L ABG Ionized Calcium 3.8 L 3.8 L 3.9 L (4.5-5.3) mg/dL ABG Glucose 117 H (75-99) mg/dL ABG Lactic Acid 3.7 H* 3.9 H* 4.1 H* (0.5-1.6) mmol/L Hemoglobin 6.5 L* 6.9 L* 6.5 L* (11.4-16.0) gm/dL Potassium (3.5-5.1) mmol/L Chloride (98-107) mmol/L BUN (7-17) mg/dL Glucose (74-99) mg/dL POC Glucose (mg/dL) (70-110) mg/dL Calcium (8.4-10.2) mg/dL Ionized Calcium Samuel (4.5-5.3) mg/dL Magnesium (1.6-2.3) mg/dL AST (14-36) U/L Alkaline Phosphatase (38-126) U/L Total Protein (6.3-8.2) g/dL Albumin (3.5-5.0) g/dL Arterial Blood Potassium 6.1 H 6.2 H* 6.1 H (3.4-4.5) mmol/L Arterial Blood Glucose 117 H (75-99) mg/dL Crossmatch 05/03/24 05/03/24 05/03/24 Range/Units 13:15 14:10 14:11 RBC 2.76 L (3.80-5.40) m/uL Hgb 8.6 L D (11.4-16.0) gm/dL Hct 26.7 L (34.0-46.0) % Plt Count 67 L D (150-450) k/uL Lymphocytes # (1.0-4.8) k/uL PT (10.0-12.5) sec INR (<1.2) APTT (22.0-30.0) sec Fibrinogen (200-500) mg/dL ABG pH 7.46 H (7.35-7.45) ABG pCO2 (35-45) mmHg ABG pO2 123 H (83-108) mmHg ABG HCO3 (21-25) mmol/L ABG Total CO2 (19-24) mmol/L ABG O2 Saturation 98.5 H (94-97) % ABG Hematocrit 27 L (34.0-46.0) % ABG Potassium (3.4-4.5) mmol/L ABG Ionized Calcium 4.4 L (4.5-5.3) mg/dL ABG Glucose (75-99) mg/dL ABG Lactic Acid 3.4 H* (0.5-1.6) mmol/L Hemoglobin 8.7 L (11.4-16.0) gm/dL Potassium (3.5-5.1) mmol/L Chloride (98-107) mmol/L BUN (7-17) mg/dL Glucose (74-99) mg/dL POC Glucose (mg/dL) 69 L (70-110) mg/dL Calcium (8.4-10.2) mg/dL Ionized Calcium Saumel (4.5-5.3) mg/dL Magnesium (1.6-2.3) mg/dL AST (14-36) U/L Alkaline Phosphatase (38-126) U/L Total Protein (6.3-8.2) g/dL Albumin (3.5-5.0) g/dL Arterial Blood Potassium (3.4-4.5) mmol/L Arterial Blood Glucose (75-99) mg/dL Crossmatch 05/03/24 05/03/24 05/03/24 Range/Units 14:11 14:11 14:11 RBC (3.80-5.40) m/uL Hgb (11.4-16.0) gm/dL Hct (34.0-46.0) % Plt Count (150-450) k/uL Lymphocytes # (1.0-4.8) k/uL PT 16.6 H (10.0-12.5) sec INR 1.6 H (<1.2) APTT 49.8 H (22.0-30.0) sec Fibrinogen 91 L (200-500) mg/dL ABG pH (7.35-7.45) ABG pCO2 (35-45) mmHg ABG pO2 (83-108) mmHg ABG HCO3 (21-25) mmol/L ABG Total CO2 (19-24) mmol/L ABG O2 Saturation (94-97) % ABG Hematocrit (34.0-46.0) % ABG Potassium (3.4-4.5) mmol/L ABG Ionized Calcium (4.5-5.3) mg/dL ABG Glucose (75-99) mg/dL ABG Lactic Acid (0.5-1.6) mmol/L Hemoglobin (11.4-16.0) gm/dL Potassium (3.5-5.1) mmol/L Chloride 109 H (98-107) mmol/L BUN 18 H (7-17) mg/dL Glucose 61 L (74-99) mg/dL POC Glucose (mg/dL) (70-110) mg/dL Calcium 7.6 L (8.4-10.2) mg/dL Ionized Calcium Samuel 4.3 L (4.5-5.3) mg/dL Magnesium 3.4 H (1.6-2.3) mg/dL AST 37 H (14-36) U/L Alkaline Phosphatase 33 L (38-126) U/L Total Protein 4.2 L (6.3-8.2) g/dL Albumin 2.7 L (3.5-5.0) g/dL Arterial Blood Potassium (3.4-4.5) mmol/L Arterial Blood Glucose (75-99) mg/dL Crossmatch 05/03/24 05/03/24 05/03/24 Range/Units 14:20 14:30 15:00 RBC (3.80-5.40) m/uL Hgb (11.4-16.0) gm/dL Hct (34.0-46.0) % Plt Count (150-450) k/uL Lymphocytes # (1.0-4.8) k/uL PT (10.0-12.5) sec INR (<1.2) APTT (22.0-30.0) sec Fibrinogen (200-500) mg/dL ABG pH 7.57 H* (7.35-7.45) ABG pCO2 27 L (35-45) mmHg ABG pO2 259 H (83-108) mmHg ABG HCO3 (21-25) mmol/L ABG Total CO2 25 H (19-24) mmol/L ABG O2 Saturation 98.8 H (94-97) % ABG Hematocrit (34.0-46.0) % ABG Potassium (3.4-4.5) mmol/L ABG Ionized Calcium (4.5-5.3) mg/dL ABG Glucose (75-99) mg/dL ABG Lactic Acid (0.5-1.6) mmol/L Hemoglobin 8.3 L (11.4-16.0) gm/dL Potassium (3.5-5.1) mmol/L Chloride (98-107) mmol/L BUN (7-17) mg/dL Glucose (74-99) mg/dL POC Glucose (mg/dL) 42 L* 153 H (70-110) mg/dL Calcium (8.4-10.2) mg/dL Ionized Calcium Samuel (4.5-5.3) mg/dL Magnesium (1.6-2.3) mg/dL AST (14-36) U/L Alkaline Phosphatase (38-126) U/L Total Protein (6.3-8.2) g/dL Albumin (3.5-5.0) g/dL Arterial Blood Potassium (3.4-4.5) mmol/L Arterial Blood Glucose (75-99) mg/dL Crossmatch 05/03/24 05/03/24 05/03/24 Range/Units 15:31 15:38 15:39 RBC (3.80-5.40) m/uL Hgb (11.4-16.0) gm/dL Hct (34.0-46.0) % Plt Count (150-450) k/uL Lymphocytes # (1.0-4.8) k/uL PT (10.0-12.5) sec INR (<1.2) APTT (22.0-30.0) sec Fibrinogen (200-500) mg/dL ABG pH 7.33 L (7.35-7.45) ABG pCO2 55 H 47 H (35-45) mmHg ABG pO2 35 L* 153 H (83-108) mmHg ABG HCO3 29 H 27 H (21-25) mmol/L ABG Total CO2 30 H 28 H (19-24) mmol/L ABG O2 Saturation 57.6 L 99.2 H (94-97) % ABG Hematocrit (34.0-46.0) % ABG Potassium (3.4-4.5) mmol/L ABG Ionized Calcium (4.5-5.3) mg/dL ABG Glucose (75-99) mg/dL ABG Lactic Acid (0.5-1.6) mmol/L Hemoglobin 8.5 L 8.6 L (11.4-16.0) gm/dL Potassium (3.5-5.1) mmol/L Chloride (98-107) mmol/L BUN (7-17) mg/dL Glucose (74-99) mg/dL POC Glucose (mg/dL) 116 H (70-110) mg/dL Calcium (8.4-10.2) mg/dL Ionized Calcium Samule (4.5-5.3) mg/dL Magnesium (1.6-2.3) mg/dL AST (14-36) U/L Alkaline Phosphatase (38-126) U/L Total Protein (6.3-8.2) g/dL Albumin (3.5-5.0) g/dL Arterial Blood Potassium (3.4-4.5) mmol/L Arterial Blood Glucose (75-99) mg/dL Crossmatch 05/03/24 05/03/24 05/03/24 Range/Units 17:00 17:05 18:06 RBC 3.19 L (3.80-5.40) m/uL Hgb 9.6 L (11.4-16.0) gm/dL Hct 30.8 L (34.0-46.0) % Plt Count 71 L (150-450) k/uL Lymphocytes # 0.7 L (1.0-4.8) k/uL PT (10.0-12.5) sec INR (<1.2) APTT (22.0-30.0) sec Fibrinogen (200-500) mg/dL ABG pH (7.35-7.45) ABG pCO2 (35-45) mmHg ABG pO2 (83-108) mmHg ABG HCO3 (21-25) mmol/L ABG Total CO2 (19-24) mmol/L ABG O2 Saturation (94-97) % ABG Hematocrit (34.0-46.0) % ABG Potassium (3.4-4.5) mmol/L ABG Ionized Calcium (4.5-5.3) mg/dL ABG Glucose (75-99) mg/dL ABG Lactic Acid (0.5-1.6) mmol/L Hemoglobin (11.4-16.0) gm/dL Potassium (3.5-5.1) mmol/L Chloride (98-107) mmol/L BUN (7-17) mg/dL Glucose (74-99) mg/dL POC Glucose (mg/dL) 164 H 155 H (70-110) mg/dL Calcium (8.4-10.2) mg/dL Ionized Calcium Samuel (4.5-5.3) mg/dL Magnesium (1.6-2.3) mg/dL AST (14-36) U/L Alkaline Phosphatase (38-126) U/L Total Protein (6.3-8.2) g/dL Albumin (3.5-5.0) g/dL Arterial Blood Potassium (3.4-4.5) mmol/L Arterial Blood Glucose (75-99) mg/dL Crossmatch 05/03/24 05/03/24 05/03/24 Range/Units 19:02 19:46 19:47 RBC 2.98 L (3.80-5.40) m/uL Hgb 9.1 L (11.4-16.0) gm/dL Hct 28.8 L (34.0-46.0) % Plt Count 66 L (150-450) k/uL Lymphocytes # 0.5 L (1.0-4.8) k/uL PT (10.0-12.5) sec INR (<1.2) APTT (22.0-30.0) sec Fibrinogen (200-500) mg/dL ABG pH (7.35-7.45) ABG pCO2 (35-45) mmHg ABG pO2 (83-108) mmHg ABG HCO3 (21-25) mmol/L ABG Total CO2 (19-24) mmol/L ABG O2 Saturation (94-97) % ABG Hematocrit (34.0-46.0) % ABG Potassium (3.4-4.5) mmol/L ABG Ionized Calcium (4.5-5.3) mg/dL ABG Glucose (75-99) mg/dL ABG Lactic Acid (0.5-1.6) mmol/L Hemoglobin (11.4-16.0) gm/dL Potassium (3.5-5.1) mmol/L Chloride (98-107) mmol/L BUN (7-17) mg/dL Glucose (74-99) mg/dL POC Glucose (mg/dL) 114 H 126 H (70-110) mg/dL Calcium (8.4-10.2) mg/dL Ionized Calcium Samuel (4.5-5.3) mg/dL Magnesium (1.6-2.3) mg/dL AST (14-36) U/L Alkaline Phosphatase (38-126) U/L Total Protein (6.3-8.2) g/dL Albumin (3.5-5.0) g/dL Arterial Blood Potassium (3.4-4.5) mmol/L Arterial Blood Glucose (75-99) mg/dL Crossmatch 05/03/24 05/03/24 05/03/24 Range/Units 20:43 20:46 21:59 RBC (3.80-5.40) m/uL Hgb (11.4-16.0) gm/dL Hct (34.0-46.0) % Plt Count (150-450) k/uL Lymphocytes # (1.0-4.8) k/uL PT (10.0-12.5) sec INR (<1.2) APTT (22.0-30.0) sec Fibrinogen (200-500) mg/dL ABG pH (7.35-7.45) ABG pCO2 47 H (35-45) mmHg ABG pO2 (83-108) mmHg ABG HCO3 27 H (21-25) mmol/L ABG Total CO2 28 H (19-24) mmol/L ABG O2 Saturation 97.5 H (94-97) % ABG Hematocrit (34.0-46.0) % ABG Potassium (3.4-4.5) mmol/L ABG Ionized Calcium (4.5-5.3) mg/dL ABG Glucose (75-99) mg/dL ABG Lactic Acid (0.5-1.6) mmol/L Hemoglobin 9.4 L (11.4-16.0) gm/dL Potassium (3.5-5.1) mmol/L Chloride (98-107) mmol/L BUN (7-17) mg/dL Glucose (74-99) mg/dL POC Glucose (mg/dL) 121 H 117 H (70-110) mg/dL Calcium (8.4-10.2) mg/dL Ionized Calcium Samuel (4.5-5.3) mg/dL Magnesium (1.6-2.3) mg/dL AST (14-36) U/L Alkaline Phosphatase (38-126) U/L Total Protein (6.3-8.2) g/dL Albumin (3.5-5.0) g/dL Arterial Blood Potassium (3.4-4.5) mmol/L Arterial Blood Glucose (75-99) mg/dL Crossmatch 05/03/24 05/03/24 05/04/24 Range/Units 22:57 23:52 01:10 RBC (3.80-5.40) m/uL Hgb (11.4-16.0) gm/dL Hct (34.0-46.0) % Plt Count (150-450) k/uL Lymphocytes # (1.0-4.8) k/uL PT (10.0-12.5) sec INR (<1.2) APTT (22.0-30.0) sec Fibrinogen (200-500) mg/dL ABG pH (7.35-7.45) ABG pCO2 (35-45) mmHg ABG pO2 (83-108) mmHg ABG HCO3 (21-25) mmol/L ABG Total CO2 (19-24) mmol/L ABG O2 Saturation (94-97) % ABG Hematocrit (34.0-46.0) % ABG Potassium (3.4-4.5) mmol/L ABG Ionized Calcium (4.5-5.3) mg/dL ABG Glucose (75-99) mg/dL ABG Lactic Acid (0.5-1.6) mmol/L Hemoglobin (11.4-16.0) gm/dL Potassium (3.5-5.1) mmol/L Chloride (98-107) mmol/L BUN (7-17) mg/dL Glucose (74-99) mg/dL POC Glucose (mg/dL) 118 H 119 H 113 H (70-110) mg/dL Calcium (8.4-10.2) mg/dL Ionized Calcium Samuel (4.5-5.3) mg/dL Magnesium (1.6-2.3) mg/dL AST (14-36) U/L Alkaline Phosphatase (38-126) U/L Total Protein (6.3-8.2) g/dL Albumin (3.5-5.0) g/dL Arterial Blood Potassium (3.4-4.5) mmol/L Arterial Blood Glucose (75-99) mg/dL Crossmatch 05/04/24 05/04/24 05/04/24 Range/Units 02:01 03:12 03:53 RBC 3.10 L (3.80-5.40) m/uL Hgb 9.5 L (11.4-16.0) gm/dL Hct 30.2 L (34.0-46.0) % Plt Count 64 L (150-450) k/uL Lymphocytes # 0.5 L (1.0-4.8) k/uL PT (10.0-12.5) sec INR (<1.2) APTT (22.0-30.0) sec Fibrinogen (200-500) mg/dL ABG pH (7.35-7.45) ABG pCO2 (35-45) mmHg ABG pO2 (83-108) mmHg ABG HCO3 (21-25) mmol/L ABG Total CO2 (19-24) mmol/L ABG O2 Saturation (94-97) % ABG Hematocrit (34.0-46.0) % ABG Potassium (3.4-4.5) mmol/L ABG Ionized Calcium (4.5-5.3) mg/dL ABG Glucose (75-99) mg/dL ABG Lactic Acid (0.5-1.6) mmol/L Hemoglobin (11.4-16.0) gm/dL Potassium (3.5-5.1) mmol/L Chloride (98-107) mmol/L BUN (7-17) mg/dL Glucose (74-99) mg/dL POC Glucose (mg/dL) 116 H 135 H (70-110) mg/dL Calcium (8.4-10.2) mg/dL Ionized Calcium Samuel (4.5-5.3) mg/dL Magnesium (1.6-2.3) mg/dL AST (14-36) U/L Alkaline Phosphatase (38-126) U/L Total Protein (6.3-8.2) g/dL Albumin (3.5-5.0) g/dL Arterial Blood Potassium (3.4-4.5) mmol/L Arterial Blood Glucose (75-99) mg/dL Crossmatch 05/04/24 05/04/24 05/04/24 Range/Units 03:53 03:53 05:06 RBC (3.80-5.40) m/uL Hgb (11.4-16.0) gm/dL Hct (34.0-46.0) % Plt Count (150-450) k/uL Lymphocytes # (1.0-4.8) k/uL PT (10.0-12.5) sec INR (<1.2) APTT (22.0-30.0) sec Fibrinogen (200-500) mg/dL ABG pH (7.35-7.45) ABG pCO2 (35-45) mmHg ABG pO2 (83-108) mmHg ABG HCO3 (21-25) mmol/L ABG Total CO2 (19-24) mmol/L ABG O2 Saturation (94-97) % ABG Hematocrit (34.0-46.0) % ABG Potassium (3.4-4.5) mmol/L ABG Ionized Calcium (4.5-5.3) mg/dL ABG Glucose (75-99) mg/dL ABG Lactic Acid (0.5-1.6) mmol/L Hemoglobin (11.4-16.0) gm/dL Potassium 5.6 H (3.5-5.1) mmol/L Chloride (98-107) mmol/L BUN 19 H (7-17) mg/dL Glucose 140 H (74-99) mg/dL POC Glucose (mg/dL) 145 H 141 H (70-110) mg/dL Calcium 7.9 L (8.4-10.2) mg/dL Ionized Calcium Samuel (4.5-5.3) mg/dL Magnesium 2.5 H (1.6-2.3) mg/dL AST 65 H (14-36) U/L Alkaline Phosphatase (38-126) U/L Total Protein 4.8 L (6.3-8.2) g/dL Albumin 3.1 L (3.5-5.0) g/dL Arterial Blood Potassium (3.4-4.5) mmol/L Arterial Blood Glucose (75-99) mg/dL Crossmatch 05/04/24 05/04/24 05/04/24 Range/Units 06:25 06:53 08:09 RBC (3.80-5.40) m/uL Hgb (11.4-16.0) gm/dL Hct (34.0-46.0) % Plt Count (150-450) k/uL Lymphocytes # (1.0-4.8) k/uL PT (10.0-12.5) sec INR (<1.2) APTT (22.0-30.0) sec Fibrinogen (200-500) mg/dL ABG pH (7.35-7.45) ABG pCO2 (35-45) mmHg ABG pO2 (83-108) mmHg ABG HCO3 (21-25) mmol/L ABG Total CO2 (19-24) mmol/L ABG O2 Saturation (94-97) % ABG Hematocrit (34.0-46.0) % ABG Potassium (3.4-4.5) mmol/L ABG Ionized Calcium (4.5-5.3) mg/dL ABG Glucose (75-99) mg/dL ABG Lactic Acid (0.5-1.6) mmol/L Hemoglobin (11.4-16.0) gm/dL Potassium (3.5-5.1) mmol/L Chloride (98-107) mmol/L BUN (7-17) mg/dL Glucose (74-99) mg/dL POC Glucose (mg/dL) 116 H 111 H 128 H (70-110) mg/dL Calcium (8.4-10.2) mg/dL Ionized Calcium Samuel (4.5-5.3) mg/dL Magnesium (1.6-2.3) mg/dL AST (14-36) U/L Alkaline Phosphatase (38-126) U/L Total Protein (6.3-8.2) g/dL Albumin (3.5-5.0) g/dL Arterial Blood Potassium (3.4-4.5) mmol/L Arterial Blood Glucose (75-99) mg/dL Crossmatch 05/04/24 05/04/24 Range/Units 09:02 10:02 RBC (3.80-5.40) m/uL Hgb (11.4-16.0) gm/dL Hct (34.0-46.0) % Plt Count (150-450) k/uL Lymphocytes # (1.0-4.8) k/uL PT (10.0-12.5) sec INR (<1.2) APTT (22.0-30.0) sec Fibrinogen (200-500) mg/dL ABG pH (7.35-7.45) ABG pCO2 (35-45) mmHg ABG pO2 (83-108) mmHg ABG HCO3 (21-25) mmol/L ABG Total CO2 (19-24) mmol/L ABG O2 Saturation (94-97) % ABG Hematocrit (34.0-46.0) % ABG Potassium (3.4-4.5) mmol/L ABG Ionized Calcium (4.5-5.3) mg/dL ABG Glucose (75-99) mg/dL ABG Lactic Acid (0.5-1.6) mmol/L Hemoglobin (11.4-16.0) gm/dL Potassium (3.5-5.1) mmol/L Chloride (98-107) mmol/L BUN (7-17) mg/dL Glucose (74-99) mg/dL POC Glucose (mg/dL) 135 H 169 H (70-110) mg/dL Calcium (8.4-10.2) mg/dL Ionized Calcium Samuel (4.5-5.3) mg/dL Magnesium (1.6-2.3) mg/dL AST (14-36) U/L Alkaline Phosphatase (38-126) U/L Total Protein (6.3-8.2) g/dL Albumin (3.5-5.0) g/dL Arterial Blood Potassium (3.4-4.5) mmol/L Arterial Blood Glucose (75-99) mg/dL Crossmatch
--- NOTE | 2024-05-04 16:24 | P.PN ---
Subjective Progress Note Date: 05/04/24 This is a 79-year-old female patient being seen in the intensive care unit postop as the patient had severe aortic valve regurgitation with mitral valve regurgitation and mild pulmonary hypertension and moderate LV dysfunction and the patient was taken to the operating room and underwent aortic valve rep lacement and mitral valve repair. The patient is also noted to have paroxysmal A-fib and has a pacemaker in place along with history of chronic kidney disease and previous history of embolic stroke with full recovery. The patient was brought into the intensive care and intubated on the mechanical ventilator. The patient was sedated with propofol. The patient is on the mechanical ventilator, assist-control mode rate of 12, tidal volume of 400, FiO2 of 100% with a PEEP of 5. Initial blood gases postop in the intensive care unit showed a pH of 7.57 with a pCO2 of 27 and pO2 of 256. FiO2 was dropped down to 60% and follow-up gases showed a pH of 7. 36 with a pCO2 of 47 and pO2 of 153. The patient's PA pressures were 38/28. Cardiac index was 1.7. Patient has mediastinal x2.. Chest x-ray showed adequate expansion of both lungs. No evidence of any pneumothorax. The patient has a right IJ Rochert-Kip catheter in place. The patient is atrially paced at rate of 80. The patient is currently on low-dose norepinephrine and milrinone which is running at 0.2 mcg/kg/min. Urine output is adequate. Initial blood work showed a white cell count of 8 with a hemoglobin 9.1 and a platelet count of 66. The sodium is at 141, potassium is at 4.4, chloride is 109 with a bicarb of 25 BUN of 18 with a creatinine of 0.7. IV fluids are normal saline at rate of 50 cc an hour. No other significant events postop. On 05/04/2024, patient is being seen for a follow-up. The patient is post aortic valve replacement and mitral valve repair and the patient is postop day #2. The patient was weaned off the mechanical ventilator and the patient was extubated any major difficulties and the patient is currently on 2 L of oxygen by nasal cannula. Hemodynamically, the patient is still requiring inotropes and the patient is currently on Primacor which is running at 0.125 mcg/kg/min and the pa tient is off norepinephrine. Cardiac index today is at 2.3. PA pressures are 31/11. The patient remains atrially paced at a rate of 80. Urine output is noted of 30 cc an hour. Remains on amiodarone and the patient will be switched from amiodarone drip to oral amiodarone. Using incentive spirometer, pulling approximately thousand. Chest x-ray from this morning was noted and the patient has cardiomegaly and pulm vascular congestion and small bilateral pleural effusions. Mediastinal chest tubes are still in place and output is minimal at this point in time. The patient is calm and comfortable. Denies having any specific complaints. Remains on insulin drip which is running at 1 unit an hour for adequate blood sugar control. Objective - Vital Signs Vital signs: Vital Signs Temp 98.2 F 05/04/24 08:00 Pulse 80 05/04/24 09:00 Resp 14 05/04/24 09:00 BP 98/66 05/04/24 04:00 Pulse Ox 96 05/04/24 09:00 FiO2 50 05/03/24 20:00 Intake & Output 05/03/24 05/04/24 05/04/24 18:59 06:59 18:59 Intake Total 702.251 6361.147 100.423 Output Total 1610 660 60 Balance -1266.551 938.147 40.423 Weight 50.7 kg Intake: IV 118 1168 89 0.9 PRESSURE BAG 36 117 9 ACETAMINOPHEN IV (For NPO 171 ) 710 mg In Empty Bag 1 bag @ 284 mls/hr IVPB Q6HR [facility] Rx#:[id number] CO/CI 80 130 30 Sodium Chloride 0.9% 1, 600 50 000 ml @ 30 mls/hr IV . Q24H [facility] Rx#:[id number] ceFAZolin 2 gm In Sodium 150 Chloride 0.9% 50 ml @ 100 mls/hr IVPB ONCE ONE Rx# :[id number] Intake, IV Titration 225.449 300.147 11.423 Amount Amiodarone 450 mg In 226.393 Dextrose 5% in Water 250 ml @ 0.5 MG/MIN 16.667 mls/hr IV .Q15H [facility] Rx#: [id number] Calcium Gluconate in NaCl 100 1 gm In Saline 1 100ml. bag @ 100 mls/hr IVPB ONCE ONE Rx#:[id number] Insulin Regular 100 unit 2.25 13.117 0.567 In Sodium Chloride 0.9% 100 ml @ Per Protocol IV .Q0M [facility] Rx#:[id number] Milrinone-D5w Pmx 20 mg 50.445 10.856 In Dextrose/Water 1 100ml .bag @ Per Protocol IV . Q0M [facility] Rx#:[id number] Norepinephrine 4 mg In 23.199 10.192 Sodium Chloride 0.9% 250 ml @ 0.02 MCG/KG/MIN 3. 597 mls/hr IV .Q24H [facility] Rx#:[id number] Sodium Chloride 0.9% 1, 100 000 ml @ 30 mls/hr IV . Q24H [facility] Rx#:[id number] Oral 130 Output: Chest Tube Drainage 340 200 30 Chest Tube Mediastinal 340 200 30 Urine 820 460 30 Estimated Blood Loss 450 Other: Voiding Method Indwelling Catheter Indwelling Catheter Indwelling Catheter ABP, PAP, CO, CI - Last Documented Arterial Blood Pressure 117/63 Pulmonary Artery Pressure 33/12 Cardiac Output 3.3 Cardiac Index 2.3 - Exam CONSTITUTIONAL: Sitting up to the bedside chair in the intensive care unit, appears comfortable, cooperative, no apparent acute distress. HEENT: Neck is supple, no JVD, no lymphadenopathy. Right IJ Cordis and Rochert- Kip catheter in place and functioning. RESPIRATORY: Lungs sounds essentially clear throughout, diminished to her bilateral bases. Respirations are symmetrical and nonlabored. Currently on 2 L nasal cannula with oxygen saturations 99%. Able to achieve 1000 mL on her incentive spirometry. Strong cough. CARDIOVASCULAR: Regular rhythm and rate. S1 and S2 present, negative for S3, gallop or murmur. Sternum is stable. Palpable peripheral pulses bilaterally, +1 edema to her bilateral lower extremities. No calf pain or tenderness noted. Heart hugger in place with patient demonstrating appropriate use. Knee-high ELADIA hose and sequential compression devices in place to his bilateral lower extremities. GASTROINTESTINAL: Abdomen soft, nontender, nondistended. Hypoactive bowel sounds present 4 quadrants. Tolerating clear liquid diet. Denies passing flatus. No guarding or rigidity. GENITOURINARY: Palacios present draining clear, yellow urine. Urine output 270 mL in the last 8 hours. INTEGUMENTARY: Skin is warm and dry with no evidence of clubbing or cyanosis. Midline sternal incision clean dry and well approximated, covered with dry intact dressing. NEUROLOGIC: Cranial nerves II through XII intact. No focal deficits. MUSKULOSKELETAL: Able to move all extremities, strength equal bilaterally, generalized weakness. PSYCHIATRIC: Alert and oriented to person place and time, appropriate affect, intact judgment and insight. INVASIVE LINES AND TUBES: Mediastinal chest tubes present and connected to low continuous wall suction, no air leaks present. Mediastinal tube with 130 mL of thin serosanguineous drainage overnight, 550 mL output in the last 24 hours. Atrial epicardial pacemaker wires present, connected to generator, AAI backup rate 80 bpm. Right internal jugular Rochert/Cordis, right radial arterial line present. Last CO 2.7, CI 1.9, PA 27/12, SVR 2308 and CVP 10 mmHg. - Labs CBC & Chem 7: 05/04/24 03:53 05/04/24 14:14 Labs: Abnormal Lab Results - Last 24 Hours (Table) 04/27/24 05/03/24 05/03/24 Range/Units 09:50 08:40 08:40 RBC (3.80-5.40) m/uL Hgb (11.4-16.0) gm/dL Hct (34.0-46.0) % Plt Count (150-450) k/uL Lymphocytes # (1.0-4.8) k/uL PT (10.0-12.5) sec INR (<1.2) APTT (22.0-30.0) sec Fibrinogen (200-500) mg/dL ABG pH 7.33 L 7.62 H* (7.35-7.45) ABG pCO2 57 H 28 L (35-45) mmHg ABG pO2 40 L* >420 H (83-108) mmHg ABG HCO3 30 H 29 H (21-25) mmol/L ABG Total CO2 28 H 27 H (19-24) mmol/L ABG O2 Saturation 70.4 L 99.4 H (94-97) % ABG Hematocrit 20 L* (34.0-46.0) % ABG Potassium 6.8 H* (3.4-4.5) mmol/L ABG Ionized Calcium 3.7 L (4.5-5.3) mg/dL ABG Glucose 260 H (75-99) mg/dL ABG Lactic Acid 2.2 H* (0.5-1.6) mmol/L Hemoglobin 6.6 L* (11.4-16.0) gm/dL Potassium (3.5-5.1) mmol/L Chloride (98-107) mmol/L BUN (7-17) mg/dL Glucose (74-99) mg/dL POC Glucose (mg/dL) (70-110) mg/dL Calcium (8.4-10.2) mg/dL Ionized Calcium Samuel (4.5-5.3) mg/dL Magnesium (1.6-2.3) mg/dL AST (14-36) U/L Alkaline Phosphatase (38-126) U/L Total Protein (6.3-8.2) g/dL Albumin (3.5-5.0) g/dL Arterial Blood Potassium 6.8 H* (3.4-4.5) mmol/L Arterial Blood Glucose 260 H (75-99) mg/dL Crossmatch See Detail 05/03/24 05/03/24 05/03/24 Range/Units 08:43 09:15 09:52 RBC (3.80-5.40) m/uL Hgb (11.4-16.0) gm/dL Hct (34.0-46.0) % Plt Count (150-450) k/uL Lymphocytes # (1.0-4.8) k/uL PT (10.0-12.5) sec INR (<1.2) APTT (22.0-30.0) sec Fibrinogen (200-500) mg/dL ABG pH 7.56 H* (7.35-7.45) ABG pCO2 49 H 32 L (35-45) mmHg ABG pO2 267 H >420 H 279 H (83-108) mmHg ABG HCO3 27 H 28 H 27 H (21-25) mmol/L ABG Total CO2 25 H 27 H 25 H (19-24) mmol/L ABG O2 Saturation 97.7 H 99.3 H 97.7 H (94-97) % ABG Hematocrit 21 L 32 L (34.0-46.0) % ABG Potassium 6.3 H* (3.4-4.5) mmol/L ABG Ionized Calcium 3.8 L (4.5-5.3) mg/dL ABG Glucose 111 H 101 H (75-99) mg/dL ABG Lactic Acid (0.5-1.6) mmol/L Hemoglobin 11.3 L 6.8 L* 10.4 L (11.4-16.0) gm/dL Potassium (3.5-5.1) mmol/L Chloride (98-107) mmol/L BUN (7-17) mg/dL Glucose (74-99) mg/dL POC Glucose (mg/dL) (70-110) mg/dL Calcium (8.4-10.2) mg/dL Ionized Calcium Samuel (4.5-5.3) mg/dL Magnesium (1.6-2.3) mg/dL AST (14-36) U/L Alkaline Phosphatase (38-126) U/L Total Protein (6.3-8.2) g/dL Albumin (3.5-5.0) g/dL Arterial Blood Potassium 6.3 H* (3.4-4.5) mmol/L Arterial Blood Glucose 111 H 101 H (75-99) mg/dL Crossmatch 05/03/24 05/03/24 05/03/24 Range/Units 11:20 11:54 12:17 RBC (3.80-5.40) m/uL Hgb (11.4-16.0) gm/dL Hct (34.0-46.0) % Plt Count (150-450) k/uL Lymphocytes # (1.0-4.8) k/uL PT (10.0-12.5) sec INR (<1.2) APTT (22.0-30.0) sec Fibrinogen (200-500) mg/dL ABG pH 7.47 H 7.46 H (7.35-7.45) ABG pCO2 (35-45) mmHg ABG pO2 382 H 390 H 353 H (83-108) mmHg ABG HCO3 29 H 28 H 27 H (21-25) mmol/L ABG Total CO2 28 H 27 H 27 H (19-24) mmol/L ABG O2 Saturation 99.2 H 99.2 H 99.3 H (94-97) % ABG Hematocrit 20 L* 21 L 20 L* (34.0-46.0) % ABG Potassium 6.1 H 6.2 H* 6.1 H (3.4-4.5) mmol/L ABG Ionized Calcium 3.8 L 3.8 L 3.9 L (4.5-5.3) mg/dL ABG Glucose 117 H (75-99) mg/dL ABG Lactic Acid 3.7 H* 3.9 H* 4.1 H* (0.5-1.6) mmol/L Hemoglobin 6.5 L* 6.9 L* 6.5 L* (11.4-16.0) gm/dL Potassium (3.5-5.1) mmol/L Chloride (98-107) mmol/L BUN (7-17) mg/dL Glucose (74-99) mg/dL POC Glucose (mg/dL) (70-110) mg/dL Calcium (8.4-10.2) mg/dL Ionized Calcium Samuel (4.5-5.3) mg/dL Magnesium (1.6-2.3) mg/dL AST (14-36) U/L Alkaline Phosphatase (38-126) U/L Total Protein (6.3-8.2) g/dL Albumin (3.5-5.0) g/dL Arterial Blood Potassium 6.1 H 6.2 H* 6.1 H (3.4-4.5) mmol/L Arterial Blood Glucose 117 H (75-99) mg/dL Crossmatch 05/03/24 05/03/24 05/03/24 Range/Units 13:15 14:10 14:11 RBC 2.76 L (3.80-5.40) m/uL Hgb 8.6 L D (11.4-16.0) gm/dL Hct 26.7 L (34.0-46.0) % Plt Count 67 L D (150-450) k/uL Lymphocytes # (1.0-4.8) k/uL PT (10.0-12.5) sec INR (<1.2) APTT (22.0-30.0) sec Fibrinogen (200-500) mg/dL ABG pH 7.46 H (7.35-7.45) ABG pCO2 (35-45) mmHg ABG pO2 123 H (83-108) mmHg ABG HCO3 (21-25) mmol/L ABG Total CO2 (19-24) mmol/L ABG O2 Saturation 98.5 H (94-97) % ABG Hematocrit 27 L (34.0-46.0) % ABG Potassium (3.4-4.5) mmol/L ABG Ionized Calcium 4.4 L (4.5-5.3) mg/dL ABG Glucose (75-99) mg/dL ABG Lactic Acid 3.4 H* (0.5-1.6) mmol/L Hemoglobin 8.7 L (11.4-16.0) gm/dL Potassium (3.5-5.1) mmol/L Chloride (98-107) mmol/L BUN (7-17) mg/dL Glucose (74-99) mg/dL POC Glucose (mg/dL) 69 L (70-110) mg/dL Calcium (8.4-10.2) mg/dL Ionized Calcium Samuel (4.5-5.3) mg/dL Magnesium (1.6-2.3) mg/dL AST (14-36) U/L Alkaline Phosphatase (38-126) U/L Total Protein (6.3-8.2) g/dL Albumin (3.5-5.0) g/dL Arterial Blood Potassium (3.4-4.5) mmol/L Arterial Blood Glucose (75-99) mg/dL Crossmatch 05/03/24 05/03/24 05/03/24 Range/Units 14:11 14:11 14:11 RBC (3.80-5.40) m/uL Hgb (11.4-16.0) gm/dL Hct (34.0-46.0) % Plt Count (150-450) k/uL Lymphocytes # (1.0-4.8) k/uL PT 16.6 H (10.0-12.5) sec INR 1.6 H (<1.2) APTT 49.8 H (22.0-30.0) sec Fibrinogen 91 L (200-500) mg/dL ABG pH (7.35-7.45) ABG pCO2 (35-45) mmHg ABG pO2 (83-108) mmHg ABG HCO3 (21-25) mmol/L ABG Total CO2 (19-24) mmol/L ABG O2 Saturation (94-97) % ABG Hematocrit (34.0-46.0) % ABG Potassium (3.4-4.5) mmol/L ABG Ionized Calcium (4.5-5.3) mg/dL ABG Glucose (75-99) mg/dL ABG Lactic Acid (0.5-1.6) mmol/L Hemoglobin (11.4-16.0) gm/dL Potassium (3.5-5.1) mmol/L Chloride 109 H (98-107) mmol/L BUN 18 H (7-17) mg/dL Glucose 61 L (74-99) mg/dL POC Glucose (mg/dL) (70-110) mg/dL Calcium 7.6 L (8.4-10.2) mg/dL Ionized Calcium Samuel 4.3 L (4.5-5.3) mg/dL Magnesium 3.4 H (1.6-2.3) mg/dL AST 37 H (14-36) U/L Alkaline Phosphatase 33 L (38-126) U/L Total Protein 4.2 L (6.3-8.2) g/dL Albumin 2.7 L (3.5-5.0) g/dL Arterial Blood Potassium (3.4-4.5) mmol/L Arterial Blood Glucose (75-99) mg/dL Crossmatch 05/03/24 05/03/24 05/03/24 Range/Units 14:20 14:30 15:00 RBC (3.80-5.40) m/uL Hgb (11.4-16.0) gm/dL Hct (34.0-46.0) % Plt Count (150-450) k/uL Lymphocytes # (1.0-4.8) k/uL PT (10.0-12.5) sec INR (<1.2) APTT (22.0-30.0) sec Fibrinogen (200-500) mg/dL ABG pH 7.57 H* (7.35-7.45) ABG pCO2 27 L (35-45) mmHg ABG pO2 259 H (83-108) mmHg ABG HCO3 (21-25) mmol/L ABG Total CO2 25 H (19-24) mmol/L ABG O2 Saturation 98.8 H (94-97) % ABG Hematocrit (34.0-46.0) % ABG Potassium (3.4-4.5) mmol/L ABG Ionized Calcium (4.5-5.3) mg/dL ABG Glucose (75-99) mg/dL ABG Lactic Acid (0.5-1.6) mmol/L Hemoglobin 8.3 L (11.4-16.0) gm/dL Potassium (3.5-5.1) mmol/L Chloride (98-107) mmol/L BUN (7-17) mg/dL Glucose (74-99) mg/dL POC Glucose (mg/dL) 42 L* 153 H (70-110) mg/dL Calcium (8.4-10.2) mg/dL Ionized Calcium Samuel (4.5-5.3) mg/dL Magnesium (1.6-2.3) mg/dL AST (14-36) U/L Alkaline Phosphatase (38-126) U/L Total Protein (6.3-8.2) g/dL Albumin (3.5-5.0) g/dL Arterial Blood Potassium (3.4-4.5) mmol/L Arterial Blood Glucose (75-99) mg/dL Crossmatch 05/03/24 05/03/24 05/03/24 Range/Units 15:31 15:38 15:39 RBC (3.80-5.40) m/uL Hgb (11.4-16.0) gm/dL Hct (34.0-46.0) % Plt Count (150-450) k/uL Lymphocytes # (1.0-4.8) k/uL PT (10.0-12.5) sec INR (<1.2) APTT (22.0-30.0) sec Fibrinogen (200-500) mg/dL ABG pH 7.33 L (7.35-7.45) ABG pCO2 55 H 47 H (35-45) mmHg ABG pO2 35 L* 153 H (83-108) mmHg ABG HCO3 29 H 27 H (21-25) mmol/L ABG Total CO2 30 H 28 H (19-24) mmol/L ABG O2 Saturation 57.6 L 99.2 H (94-97) % ABG Hematocrit (34.0-46.0) % ABG Potassium (3.4-4.5) mmol/L ABG Ionized Calcium (4.5-5.3) mg/dL ABG Glucose (75-99) mg/dL ABG Lactic Acid (0.5-1.6) mmol/L Hemoglobin 8.5 L 8.6 L (11.4-16.0) gm/dL Potassium (3.5-5.1) mmol/L Chloride (98-107) mmol/L BUN (7-17) mg/dL Glucose (74-99) mg/dL POC Glucose (mg/dL) 116 H (70-110) mg/dL Calcium (8.4-10.2) mg/dL Ionized Calcium Samuel (4.5-5.3) mg/dL Magnesium (1.6-2.3) mg/dL AST (14-36) U/L Alkaline Phosphatase (38-126) U/L Total Protein (6.3-8.2) g/dL Albumin (3.5-5.0) g/dL Arterial Blood Potassium (3.4-4.5) mmol/L Arterial Blood Glucose (75-99) mg/dL Crossmatch 05/03/24 05/03/24 05/03/24 Range/Units 17:00 17:05 18:06 RBC 3.19 L (3.80-5.40) m/uL Hgb 9.6 L (11.4-16.0) gm/dL Hct 30.8 L (34.0-46.0) % Plt Count 71 L (150-450) k/uL Lymphocytes # 0.7 L (1.0-4.8) k/uL PT (10.0-12.5) sec INR (<1.2) APTT (22.0-30.0) sec Fibrinogen (200-500) mg/dL ABG pH (7.35-7.45) ABG pCO2 (35-45) mmHg ABG pO2 (83-108) mmHg ABG HCO3 (21-25) mmol/L ABG Total CO2 (19-24) mmol/L ABG O2 Saturation (94-97) % ABG Hematocrit (34.0-46.0) % ABG Potassium (3.4-4.5) mmol/L ABG Ionized Calcium (4.5-5.3) mg/dL ABG Glucose (75-99) mg/dL ABG Lactic Acid (0.5-1.6) mmol/L Hemoglobin (11.4-16.0) gm/dL Potassium (3.5-5.1) mmol/L Chloride (98-107) mmol/L BUN (7-17) mg/dL Glucose (74-99) mg/dL POC Glucose (mg/dL) 164 H 155 H (70-110) mg/dL Calcium (8.4-10.2) mg/dL Ionized Calcium Samuel (4.5-5.3) mg/dL Magnesium (1.6-2.3) mg/dL AST (14-36) U/L Alkaline Phosphatase (38-126) U/L Total Protein (6.3-8.2) g/dL Albumin (3.5-5.0) g/dL Arterial Blood Potassium (3.4-4.5) mmol/L Arterial Blood Glucose (75-99) mg/dL Crossmatch 05/03/24 05/03/24 05/03/24 Range/Units 19:02 19:46 19:47 RBC 2.98 L (3.80-5.40) m/uL Hgb 9.1 L (11.4-16.0) gm/dL Hct 28.8 L (34.0-46.0) % Plt Count 66 L (150-450) k/uL Lymphocytes # 0.5 L (1.0-4.8) k/uL PT (10.0-12.5) sec INR (<1.2) APTT (22.0-30.0) sec Fibrinogen (200-500) mg/dL ABG pH (7.35-7.45) ABG pCO2 (35-45) mmHg ABG pO2 (83-108) mmHg ABG HCO3 (21-25) mmol/L ABG Total CO2 (19-24) mmol/L ABG O2 Saturation (94-97) % ABG Hematocrit (34.0-46.0) % ABG Potassium (3.4-4.5) mmol/L ABG Ionized Calcium (4.5-5.3) mg/dL ABG Glucose (75-99) mg/dL ABG Lactic Acid (0.5-1.6) mmol/L Hemoglobin (11.4-16.0) gm/dL Potassium (3.5-5.1) mmol/L Chloride (98-107) mmol/L BUN (7-17) mg/dL Glucose (74-99) mg/dL POC Glucose (mg/dL) 114 H 126 H (70-110) mg/dL Calcium (8.4-10.2) mg/dL Ionized Calcium Samuel (4.5-5.3) mg/dL Magnesium (1.6-2.3) mg/dL AST (14-36) U/L Alkaline Phosphatase (38-126) U/L Total Protein (6.3-8.2) g/dL Albumin (3.5-5.0) g/dL Arterial Blood Potassium (3.4-4.5) mmol/L Arterial Blood Glucose (75-99) mg/dL Crossmatch 05/03/24 05/03/24 05/03/24 Range/Units 20:43 20:46 21:59 RBC (3.80-5.40) m/uL Hgb (11.4-16.0) gm/dL Hct (34.0-46.0) % Plt Count (150-450) k/uL Lymphocytes # (1.0-4.8) k/uL PT (10.0-12.5) sec INR (<1.2) APTT (22.0-30.0) sec Fibrinogen (200-500) mg/dL ABG pH (7.35-7.45) ABG pCO2 47 H (35-45) mmHg ABG pO2 (83-108) mmHg ABG HCO3 27 H (21-25) mmol/L ABG Total CO2 28 H (19-24) mmol/L ABG O2 Saturation 97.5 H (94-97) % ABG Hematocrit (34.0-46.0) % ABG Potassium (3.4-4.5) mmol/L ABG Ionized Calcium (4.5-5.3) mg/dL ABG Glucose (75-99) mg/dL ABG Lactic Acid (0.5-1.6) mmol/L Hemoglobin 9.4 L (11.4-16.0) gm/dL Potassium (3.5-5.1) mmol/L Chloride (98-107) mmol/L BUN (7-17) mg/dL Glucose (74-99) mg/dL POC Glucose (mg/dL) 121 H 117 H (70-110) mg/dL Calcium (8.4-10.2) mg/dL Ionized Calcium Samuel (4.5-5.3) mg/dL Magnesium (1.6-2.3) mg/dL AST (14-36) U/L Alkaline Phosphatase (38-126) U/L Total Protein (6.3-8.2) g/dL Albumin (3.5-5.0) g/dL Arterial Blood Potassium (3.4-4.5) mmol/L Arterial Blood Glucose (75-99) mg/dL Crossmatch 05/03/24 05/03/24 05/04/24 Range/Units 22:57 23:52 01:10 RBC (3.80-5.40) m/uL Hgb (11.4-16.0) gm/dL Hct (34.0-46.0) % Plt Count (150-450) k/uL Lymphocytes # (1.0-4.8) k/uL PT (10.0-12.5) sec INR (<1.2) APTT (22.0-30.0) sec Fibrinogen (200-500) mg/dL ABG pH (7.35-7.45) ABG pCO2 (35-45) mmHg ABG pO2 (83-108) mmHg ABG HCO3 (21-25) mmol/L ABG Total CO2 (19-24) mmol/L ABG O2 Saturation (94-97) % ABG Hematocrit (34.0-46.0) % ABG Potassium (3.4-4.5) mmol/L ABG Ionized Calcium (4.5-5.3) mg/dL ABG Glucose (75-99) mg/dL ABG Lactic Acid (0.5-1.6) mmol/L Hemoglobin (11.4-16.0) gm/dL Potassium (3.5-5.1) mmol/L Chloride (98-107) mmol/L BUN (7-17) mg/dL Glucose (74-99) mg/dL POC Glucose (mg/dL) 118 H 119 H 113 H (70-110) mg/dL Calcium (8.4-10.2) mg/dL Ionized Calcium Samuel (4.5-5.3) mg/dL Magnesium (1.6-2.3) mg/dL AST (14-36) U/L Alkaline Phosphatase (38-126) U/L Total Protein (6.3-8.2) g/dL Albumin (3.5-5.0) g/dL Arterial Blood Potassium (3.4-4.5) mmol/L Arterial Blood Glucose (75-99) mg/dL Crossmatch 05/04/24 05/04/24 05/04/24 Range/Units 02:01 03:12 03:53 RBC 3.10 L (3.80-5.40) m/uL Hgb 9.5 L (11.4-16.0) gm/dL Hct 30.2 L (34.0-46.0) % Plt Count 64 L (150-450) k/uL Lymphocytes # 0.5 L (1.0-4.8) k/uL PT (10.0-12.5) sec INR (<1.2) APTT (22.0-30.0) sec Fibrinogen (200-500) mg/dL ABG pH (7.35-7.45) ABG pCO2 (35-45) mmHg ABG pO2 (83-108) mmHg ABG HCO3 (21-25) mmol/L ABG Total CO2 (19-24) mmol/L ABG O2 Saturation (94-97) % ABG Hematocrit (34.0-46.0) % ABG Potassium (3.4-4.5) mmol/L ABG Ionized Calcium (4.5-5.3) mg/dL ABG Glucose (75-99) mg/dL ABG Lactic Acid (0.5-1.6) mmol/L Hemoglobin (11.4-16.0) gm/dL Potassium (3.5-5.1) mmol/L Chloride (98-107) mmol/L BUN (7-17) mg/dL Glucose (74-99) mg/dL POC Glucose (mg/dL) 116 H 135 H (70-110) mg/dL Calcium (8.4-10.2) mg/dL Ionized Calcium Samuel (4.5-5.3) mg/dL Magnesium (1.6-2.3) mg/dL AST (14-36) U/L Alkaline Phosphatase (38-126) U/L Total Protein (6.3-8.2) g/dL Albumin (3.5-5.0) g/dL Arterial Blood Potassium (3.4-4.5) mmol/L Arterial Blood Glucose (75-99) mg/dL Crossmatch 05/04/24 05/04/24 05/04/24 Range/Units 03:53 03:53 05:06 RBC (3.80-5.40) m/uL Hgb (11.4-16.0) gm/dL Hct (34.0-46.0) % Plt Count (150-450) k/uL Lymphocytes # (1.0-4.8) k/uL PT (10.0-12.5) sec INR (<1.2) APTT (22.0-30.0) sec Fibrinogen (200-500) mg/dL ABG pH (7.35-7.45) ABG pCO2 (35-45) mmHg ABG pO2 (83-108) mmHg ABG HCO3 (21-25) mmol/L ABG Total CO2 (19-24) mmol/L ABG O2 Saturation (94-97) % ABG Hematocrit (34.0-46.0) % ABG Potassium (3.4-4.5) mmol/L ABG Ionized Calcium (4.5-5.3) mg/dL ABG Glucose (75-99) mg/dL ABG Lactic Acid (0.5-1.6) mmol/L Hemoglobin (11.4-16.0) gm/dL Potassium 5.6 H (3.5-5.1) mmol/L Chloride (98-107) mmol/L BUN 19 H (7-17) mg/dL Glucose 140 H (74-99) mg/dL POC Glucose (mg/dL) 145 H 141 H (70-110) mg/dL Calcium 7.9 L (8.4-10.2) mg/dL Ionized Calcium Samuel (4.5-5.3) mg/dL Magnesium 2.5 H (1.6-2.3) mg/dL AST 65 H (14-36) U/L Alkaline Phosphatase (38-126) U/L Total Protein 4.8 L (6.3-8.2) g/dL Albumin 3.1 L (3.5-5.0) g/dL Arterial Blood Potassium (3.4-4.5) mmol/L Arterial Blood Glucose (75-99) mg/dL Crossmatch 05/04/24 05/04/24 05/04/24 Range/Units 06:25 06:53 08:09 RBC (3.80-5.40) m/uL Hgb (11.4-16.0) gm/dL Hct (34.0-46.0) % Plt Count (150-450) k/uL Lymphocytes # (1.0-4.8) k/uL PT (10.0-12.5) sec INR (<1.2) APTT (22.0-30.0) sec Fibrinogen (200-500) mg/dL ABG pH (7.35-7.45) ABG pCO2 (35-45) mmHg ABG pO2 (83-108) mmHg ABG HCO3 (21-25) mmol/L ABG Total CO2 (19-24) mmol/L ABG O2 Saturation (94-97) % ABG Hematocrit (34.0-46.0) % ABG Potassium (3.4-4.5) mmol/L ABG Ionized Calcium (4.5-5.3) mg/dL ABG Glucose (75-99) mg/dL ABG Lactic Acid (0.5-1.6) mmol/L Hemoglobin (11.4-16.0) gm/dL Potassium (3.5-5.1) mmol/L Chloride (98-107) mmol/L BUN (7-17) mg/dL Glucose (74-99) mg/dL POC Glucose (mg/dL) 116 H 111 H 128 H (70-110) mg/dL Calcium (8.4-10.2) mg/dL Ionized Calcium Samuel (4.5-5.3) mg/dL Magnesium (1.6-2.3) mg/dL AST (14-36) U/L Alkaline Phosphatase (38-126) U/L Total Protein (6.3-8.2) g/dL Albumin (3.5-5.0) g/dL Arterial Blood Potassium (3.4-4.5) mmol/L Arterial Blood Glucose (75-99) mg/dL Crossmatch 05/04/24 05/04/24 Range/Units 09:02 10:02 RBC (3.80-5.40) m/uL Hgb (11.4-16.0) gm/dL Hct (34.0-46.0) % Plt Count (150-450) k/uL Lymphocytes # (1.0-4.8) k/uL PT (10.0-12.5) sec INR (<1.2) APTT (22.0-30.0) sec Fibrinogen (200-500) mg/dL ABG pH (7.35-7.45) ABG pCO2 (35-45) mmHg ABG pO2 (83-108) mmHg ABG HCO3 (21-25) mmol/L ABG Total CO2 (19-24) mmol/L ABG O2 Saturation (94-97) % ABG Hematocrit (34.0-46.0) % ABG Potassium (3.4-4.5) mmol/L ABG Ionized Calcium (4.5-5.3) mg/dL ABG Glucose (75-99) mg/dL ABG Lactic Acid (0.5-1.6) mmol/L Hemoglobin (11.4-16.0) gm/dL Potassium (3.5-5.1) mmol/L Chloride (98-107) mmol/L BUN (7-17) mg/dL Glucose (74-99) mg/dL POC Glucose (mg/dL) 135 H 169 H (70-110) mg/dL Calcium (8.4-10.2) mg/dL Ionized Calcium Samuel (4.5-5.3) mg/dL Magnesium (1.6-2.3) mg/dL AST (14-36) U/L Alkaline Phosphatase (38-126) U/L Total Protein (6.3-8.2) g/dL Albumin (3.5-5.0) g/dL Arterial Blood Potassium (3.4-4.5) mmol/L Arterial Blood Glucose (75-99) mg/dL Crossmatch Assessment and Plan Plan: Aortic valve replacement and mitral valve repair for severe aortic and and mitral valve regurgitation. The patient is currently postop day # 1. Hemod ynamically stable. Cardiac index at 2.3. Maintained on a combination of milrinone and she is off Levophed. Adequate urine output. Cardiac rhythm is atrially paced at a rate of 80. Postthoracotomy. Mediastinal chest tube in place. Extubated to 2 L of oxygen by nasal cannula. Continues to have some pulm vessel congestion and small bilateral pleural effusion. Output from mediastinal chest tubes are minimal Paroxysmal atrial fibrillation, current rhythm is paced. The patient has a pacemaker and the patient is currently atrially paced rate of 80. 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 Hypertension Hyperlipidemia Osteoarthritis History of nephrolithiasis/kidney stones Diverticular disease History of tachybradycardia syndrome History of macular degeneration Small hiatal hernia Anemia, acute, expected outcome of surgery Acute thrombocytopenia, expected lower, surgery Plan Continues incentive spirometer -FiO2 is gradually being weaned off to maintain saturation above 90% Continue milrinone titrated dose based on cardiac output and urine output Monitor cardiac output and index and keep the Rochert-Kip catheter in place Monitor output from the chest tubes and the patient has mediastinal chest tube x 2 Keep the patient atrially paced at a rate of 80 Transition amiodarone to switch this patient to oral amiodarone l Interrogate the pacemaker Monitor the hemoglobin and platelet count, both being stable at this point Continue insulin drip for tight blood sugar control Continue aspirin, Plavix Metoprolol 12.5 mg p.o. twice daily Adequate pain control with oxycodone Heparin subcu 5000 units every 8 hours and close monitoring of the white count Will continue to follow and the patient will be kept in ICU for another 24 hours. Will continue to follow, evaluation was done and 32 minutes Time with Patient: Greater than 30
[2024-05-04 18:07] LABS: Glucose,Whole Blood 119 mg/dL (70-110)
[2024-05-04 19:13] LABS: Glucose,Whole Blood 121 mg/dL (70-110)
[2024-05-04 19:52] LABS: Glucose,Whole Blood 149 mg/dL (70-110)
[2024-05-04 20:58] LABS: Glucose,Whole Blood 151 mg/dL (70-110)
[2024-05-04 21:54] LABS: Glucose,Whole Blood 140 mg/dL (70-110)
[2024-05-04] MEDS: BENZOCAINE/MENTHOL LOZENG 1 EACH LOZENGE MUCOUS MEM PRN (22:32)
[2024-05-04 22:53] LABS: Glucose,Whole Blood 106 mg/dL (70-110)
[2024-05-05 00:04] LABS: Glucose,Whole Blood 115 mg/dL (70-110)
[2024-05-05 00:54] LABS: Glucose,Whole Blood 122 mg/dL (70-110)
[2024-05-05 01:55] LABS: Glucose,Whole Blood 132 mg/dL (70-110)
[2024-05-05 03:06] LABS: Glucose,Whole Blood 124 mg/dL (70-110)
[2024-05-05 04:09] LABS: Glucose,Whole Blood 119 mg/dL (70-110)
[2024-05-05 04:36] LABS: Basophils % (A) 0 %; Eosinophils % (A) 0 %; HCT 29.3 % (34.0-46.0); HGB 9.4 gm/dL (11.4-16.0); Lymphocytes # (A) 1.3 k/uL (1.0-4.8); Lymphocytes % (A) 11 %; MCH 30.7 pg (25.0-35.0); Mean Platelet Volume 9.6; Monocytes # (A) 0.6 k/uL (0-1.0); Monocytes % (A) 5 %; Neutrophils # (A) 10.2 k/uL (1.3-7.7); Neutrophils % (A) 83 %; RBC 3.05 m/uL (3.80-5.40); RDW 14.3 % (11.5-15.5); WBC 12.4 k/uL (3.8-10.6)
[2024-05-05 04:37] LABS: Ionized Calcium 4.7 mg/dL (4.5-5.3)
[2024-05-05 04:50] LABS: ALT 16 U/L (4-34); AST 59 U/L (14-36); African American GFR (CKD) >90 (>60 ml/min/1.73 sqM); Alkaline Phosphatase 66 U/L (38-126); Anion Gap 4 mmol/L; Blood Urea Nitrogen 20 mg/dL (7-17); Calcium 8.3 mg/dL (8.4-10.2); Carbon Dioxide 24 mmol/L (22-30); Chloride 102 mmol/L (98-107); Glucose 111 mg/dL (74-99); Non-African American GFR(CKD) 78 (>60 ml/min/1.73 sqM); Potassium 4.6 mmol/L (3.5-5.1); Sodium 130 mmol/L (137-145); Total Bilirubin 0.6 mg/dL (0.2-1.3); Total Protein 4.9 g/dL (6.3-8.2)
[2024-05-05 05:06] LABS: Glucose,Whole Blood 118 mg/dL (70-110)
[2024-05-05 05:24] LABS: Platelet Count 73 k/uL (150-450)
--- NOTE | 2024-05-05 05:45 | XR ---
EXAMINATION TYPE: XR chest 1V portable DATE OF EXAM: 05/05/2024 CLINICAL INDICATION: Female, 79 years old with history of Post Operative Cardiac Surgery, progress st [facility]. TECHNIQUE: Single AP portable semiupright view of the chest is obtained. COMPARISON: Chest x-ray from one day earlier. FINDINGS: Stable right internal jugular Arco-Kip catheter and mediastinal drainage catheter. Overlying sternal wires along with metallic aortic valve and left atrial appendage clip are all redem onstrated. Persistent cardiomegaly with central vascular congestion and small bilateral pleural effusions with l eft basilar opacity favoring compressive atelectasis. Osseous structures are intact. IMPRESSION: Persistent cardiomegaly with small bilateral pleural effusions. Persistent left basilar o pacity favors compressive atelectasis. [facility], , 05/05/2024 5:43 AM
[2024-05-05 06:03] LABS: Glucose,Whole Blood 143 mg/dL (70-110)
[2024-05-05 06:49] LABS: Glucose,Whole Blood 126 mg/dL (70-110)
--- NOTE | 2024-05-05 07:29 | P.PN ---
Subjective Progress Note Date: 05/05/24 Principal diagnosis: Severe aortic valve regurgitation, moderate mitral valve regurgitation, mild to moderate tricuspid valve regurgitation, and mild pulmonary hypertension. Previo us medical history of moderate left ventricular dysfunction, chronic heart failure with reduced ejection fraction, hypertension, chronic kidney disease stage III, iron deficiency anemia, paroxysmal atrial fibrillation with cardioversion in 2023 on Eliquis for anticoagulation status post permanent dual- chamber pacemaker, embolic stroke with full recovery, hard of hearing, osteoarthritis, mild lung disease, COVID in 2021, and lifelong non-smoker. POD #2 aortic valve replacement using a 19 mm Inspiris pericardial bioprosthesis, mitral valve repair using a posterior annuloplasty band 26 mm annuloflex, exclusion of the left atrial appendage using a 35mm AtriClip, and transesophageal echocardiogram and epiaortic scanning. Postoperative blood loss anemia and thrombocytopenia, expected given car diopulmonary bypass and hemodilution. The patient was seen and examined sitting up in recliner in the intensive care unit in no acute distress. She is quite sleepy. She denies significant pain, denies shortness of breath. She has been ambulatory in the hallway with nursing staff. Remains atrial paced at 80 bpm with underlying rhythm sinus in the 80s when she is awake and dropping down to 68 when she is sleeping. Remains hemodynamically stable, currently on Primacor at low-dose. Right internal jugular Silverton/Cordis, left brachial arterial line, mediastinal chest tubes all remain. No other new concerns. Objective - Vital Signs Vital signs: Vital Signs Temp 99.3 F 05/05/24 04:00 Pulse 85 05/05/24 06:00 Resp 15 05/05/24 06:00 BP 98/66 05/04/24 04:00 Pulse Ox 93 L 05/05/24 06:00 FiO2 50 05/03/24 20:00 Intake & Output 05/04/24 05/05/24 05/05/24 18:59 06:59 18:59 Intake Total 796.465 617.283 Output Total 580 430 Balance 216.465 187.283 Weight 50.7 kg 56.8 kg Intake: IV 619 607 0.9 PRESSURE BAG 99 117 CO/CI 110 100 Sodium Chloride 0.9% 1, 410 390 000 ml @ 30 mls/hr IV . Q24H [facility] Rx#:[id number] Intake, IV Titration 27.465 10.283 Amount Insulin Regular 100 unit 16.609 10.283 In Sodium Chloride 0.9% 100 ml @ Per Protocol IV .Q0M [facility] Rx#:[id number] Milrinone-D5w Pmx 20 mg 10.856 In Dextrose/Water 1 100ml .bag @ Per Protocol IV . Q0M [facility] Rx#:[id number] Oral 150 Output: Chest Tube Drainage 280 120 Chest Tube Mediastinal 280 120 Urine 300 310 Other: Voiding Method Indwelling Catheter Indwelling Catheter ABP, PAP, CO, CI - Last Documented Arterial Blood Pressure 132/75 Pulmonary Artery Pressure 38/22 Cardiac Output 3.1 Cardiac Index 2.2 - Exam CONSTITUTIONAL: Appears comfortable, cooperative, no acute distress RESPIRATORY: Lungs sounds diminished in the bases bilaterally. Respirations even, nonlabored. Currently on 2 L nasal cannula with oxygen saturation 96%. Able to achieve 1000 mL on incentive spirometry. Strong cough. CARDIOVASCULAR: S1, S2 present. Regular rate and rhythm, atrially paced on telemetry. Sternum stable. Palpable peripheral pulses bilaterally. No edema present. No calf pain or tenderness noted. Heart hugger in place with patient demonstrating appropriate use. Antiembolism stockings, SCDs present. GASTROINTESTINAL: Abdomen soft, nontender, nondistended. Active bowel sounds present 4 quadrants. Tolerating liquids. Positive flatus GENITOURINARY: Palacios present draining clear, yellow urine. Output overnight 10-45 mL per hour, 585 mL in the last 24 hours INTEGUMENTARY: Skin is warm and dry with evidence of good perfusion. Anterior chest incision well approximated and covered with dry intact dressing NEUROLOGIC: Cranial nerves II through XII intact MUSKULOSKELETAL: Able to move all extremities, strength equal bilaterally, gait normal PSYCHIATRIC: Alert and oriented to person place and time, appropriate affect, intact judgment and insight INVASIVE LINES AND TUBES: Mediastinal chest tube present and connected to wall suction, no air leaks present, 80 mL serosanguineous drainage overnight, 400 mL in the last 24 hours. Atrial epicardial pacemaker wires present, connected to generator, AAI mode with rate 80 bpm. Right internal jugular Silverton/Cordis, right radial arterial line present. Last CO/CI 2.8/2.0, PA 43/25, CVP 19. - Allied health notes Allied health notes reviewed: nursing - Labs CBC & Chem 7: 05/05/24 04:08 05/05/24 04:08 Labs: Abnormal Lab Results - Last 24 Hours (Table) 05/04/24 05/04/24 05/04/24 Range/Units 03:53 08:09 09:02 WBC (3.8-10.6) k/uL RBC (3.80-5.40) m/uL Hgb (11.4-16.0) gm/dL Hct (34.0-46.0) % Plt Count (150-450) k/uL Neutrophils # (1.3-7.7) k/uL Sodium (137-145) mmol/L BUN (7-17) mg/dL Glucose (74-99) mg/dL POC Glucose (mg/dL) 128 H 135 H (70-110) mg/dL Calcium (8.4-10.2) mg/dL Iron 16 L (50-170) UG/DL TIBC 154 L (228-460) UG/DL % Saturation 10.39 L (12.00-45.00) Transferrin 110.0 L (204.0-354.0) mg/dL AST (14-36) U/L Total Protein (6.3-8.2) g/dL Albumin (3.5-5.0) g/dL 05/04/24 05/04/24 05/04/24 Range/Units 10:02 11:10 11:57 WBC (3.8-10.6) k/uL RBC (3.80-5.40) m/uL Hgb (11.4-16.0) gm/dL Hct (34.0-46.0) % Plt Count (150-450) k/uL Neutrophils # (1.3-7.7) k/uL Sodium (137-145) mmol/L BUN (7-17) mg/dL Glucose (74-99) mg/dL POC Glucose (mg/dL) 169 H 140 H 119 H (70-110) mg/dL Calcium (8.4-10.2) mg/dL Iron (50-170) UG/DL TIBC (228-460) UG/DL % Saturation (12.00-45.00) Transferrin (204.0-354.0) mg/dL AST (14-36) U/L Total Protein (6.3-8.2) g/dL Albumin (3.5-5.0) g/dL 05/04/24 05/04/24 05/04/24 Range/Units 13:07 14:12 15:11 WBC (3.8-10.6) k/uL RBC (3.80-5.40) m/uL Hgb (11.4-16.0) gm/dL Hct (34.0-46.0) % Plt Count (150-450) k/uL Neutrophils # (1.3-7.7) k/uL Sodium (137-145) mmol/L BUN (7-17) mg/dL Glucose (74-99) mg/dL POC Glucose (mg/dL) 174 H 151 H 130 H (70-110) mg/dL Calcium (8.4-10.2) mg/dL Iron (50-170) UG/DL TIBC (228-460) UG/DL % Saturation (12.00-45.00) Transferrin (204.0-354.0) mg/dL AST (14-36) U/L Total Protein (6.3-8.2) g/dL Albumin (3.5-5.0) g/dL 05/04/24 05/04/24 05/04/24 Range/Units 16:01 18:05 19:10 WBC (3.8-10.6) k/uL RBC (3.80-5.40) m/uL Hgb (11.4-16.0) gm/dL Hct (34.0-46.0) % Plt Count (150-450) k/uL Neutrophils # (1.3-7.7) k/uL Sodium (137-145) mmol/L BUN (7-17) mg/dL Glucose (74-99) mg/dL POC Glucose (mg/dL) 128 H 119 H 121 H (70-110) mg/dL Calcium (8.4-10.2) mg/dL Iron (50-170) UG/DL TIBC (228-460) UG/DL % Saturation (12.00-45.00) Transferrin (204.0-354.0) mg/dL AST (14-36) U/L Total Protein (6.3-8.2) g/dL Albumin (3.5-5.0) g/dL 03/11/25 03/11/25 03/11/25 Range/Units 19:50 20:56 21:53 WBC (3.8-10.6) k/uL RBC (3.80-5.40) m/uL Hgb (11.4-16.0) gm/dL Hct (34.0-46.0) % Plt Count (150-450) k/uL Neutrophils # (1.3-7.7) k/uL Sodium (137-145) mmol/L BUN (7-17) mg/dL Glucose (74-99) mg/dL POC Glucose (mg/dL) 149 H 151 H 140 H (70-110) mg/dL Calcium (8.4-10.2) mg/dL Iron (50-170) UG/DL TIBC (228-460) UG/DL % Saturation (12.00-45.00) Transferrin (204.0-354.0) mg/dL AST (14-36) U/L Total Protein (6.3-8.2) g/dL Albumin (3.5-5.0) g/dL 05/05/24 05/05/24 05/05/24 Range/Units 00:03 00:52 01:53 WBC (3.8-10.6) k/uL RBC (3.80-5.40) m/uL Hgb (11.4-16.0) gm/dL Hct (34.0-46.0) % Plt Count (150-450) k/uL Neutrophils # (1.3-7.7) k/uL Sodium (137-145) mmol/L BUN (7-17) mg/dL Glucose (74-99) mg/dL POC Glucose (mg/dL) 115 H 122 H 132 H (70-110) mg/dL Calcium (8.4-10.2) mg/dL Iron (50-170) UG/DL TIBC (228-460) UG/DL % Saturation (12.00-45.00) Transferrin (204.0-354.0) mg/dL AST (14-36) U/L Total Protein (6.3-8.2) g/dL Albumin (3.5-5.0) g/dL 05/05/24 05/05/24 05/05/24 Range/Units 03:04 04:08 04:08 WBC 12.4 H (3.8-10.6) k/uL RBC 3.05 L (3.80-5.40) m/uL Hgb 9.4 L (11.4-16.0) gm/dL Hct 29.3 L (34.0-46.0) % Plt Count 73 L (150-450) k/uL Neutrophils # 10.2 H (1.3-7.7) k/uL Sodium 130 L (137-145) mmol/L BUN 20 H (7-17) mg/dL Glucose 111 H (74-99) mg/dL POC Glucose (mg/dL) 124 H (70-110) mg/dL Calcium 8.3 L (8.4-10.2) mg/dL Iron (50-170) UG/DL TIBC (228-460) UG/DL % Saturation (12.00-45.00) Transferrin (204.0-354.0) mg/dL AST 59 H (14-36) U/L Total Protein 4.9 L (6.3-8.2) g/dL Albumin 3.0 L (3.5-5.0) g/dL 05/05/24 05/05/24 05/05/24 Range/Units 04:08 05:05 06:02 WBC (3.8-10.6) k/uL RBC (3.80-5.40) m/uL Hgb (11.4-16.0) gm/dL Hct (34.0-46.0) % Plt Count (150-450) k/uL Neutrophils # (1.3-7.7) k/uL Sodium (137-145) mmol/L BUN (7-17) mg/dL Glucose (74-99) mg/dL POC Glucose (mg/dL) 119 H 118 H 143 H (70-110) mg/dL Calcium (8.4-10.2) mg/dL Iron (50-170) UG/DL TIBC (228-460) UG/DL % Saturation (12.00-45.00) Transferrin (204.0-354.0) mg/dL AST (14-36) U/L Total Protein (6.3-8.2) g/dL Albumin (3.5-5.0) g/dL 05/05/24 Range/Units 06:48 WBC (3.8-10.6) k/uL RBC (3.80-5.40) m/uL Hgb (11.4-16.0) gm/dL Hct (34.0-46.0) % Plt Count (150-450) k/uL Neutrophils # (1.3-7.7) k/uL Sodium (137-145) mmol/L BUN (7-17) mg/dL Glucose (74-99) mg/dL POC Glucose (mg/dL) 126 H (70-110) mg/dL Calcium (8.4-10.2) mg/dL Iron (50-170) UG/DL TIBC (228-460) UG/DL % Saturation (12.00-45.00) Transferrin (204.0-354.0) mg/dL AST (14-36) U/L Total Protein (6.3-8.2) g/dL Albumin (3.5-5.0) g/dL - Imaging and Cardiology Chest x-ray: report reviewed, image reviewed Assessment and Plan Assessment: Severe aortic valve regurgitation, status post aortic valve replacement Moderate mitral valve regurgitation, status post mitral valve repair Mild to moderate tricuspid valve regurgitation Mild pulmonary hypertension Postoperative blood loss anemia and thrombocytopenia, expected given cardiopulmonary bypass and hemodilution. History of chronic heart failure with reduced ejection fraction, EF 40% Hypertension Chronic kidney disease stage III Iron deficiency anemia Paroxysmal atrial fibrillation with cardioversion in 2023 on Eliquis for a nticoagulation status post permanent dual-chamber pacemaker, status post ligation of the left atrial appendage Embolic stroke with full recovery in 2016 Mild lung disease, preoperative FEV1 73% of predicted COVID in 2021 Lifelong non-smoker Plan: Continue to maximize medical therapy with low dose aspirin, Plavix and beta- pari. Will increase beta-pari as tolerated Continue hydralazine for afterload reduction, will start low dose losartan Continue oral amiodarone for A-fib prophylaxis. No anticoagulation until all lines and tubes have been discontinued No statin as the patient is sensitive to statins, no hyperlipidemia present Wean oxygen as tolerated. Encourage incentive spirometry use 10 times every hour while awake. Bronchodilators per pulmonology. Continue Primacor drip. Continue to monitor hemodynamics. Will monitor daily labs and chest x-rays, electrolyte replacement per protocol. Increase activity, ambulate as tolerated. PT/OT/cardiac rehab following GI/DVT prophylaxis Pain control per current medication regimen. No Toradol at this time due to the patient's chronic kidney disease. Insulin management per internal medicine, preoperative hemoglobin A1c 6.1% Continue right IJ cordis and Silverton-Kip catheter. Continue to monitor hemodynam ics. Continue chest tubes for another 24 hours, monitor output. Continue Palacios for another 24 hours, continue to monitor record strict accurate intake and output. More recommendations to follow based on patient's clinical course.
[2024-05-05] MEDS: ASPIRIN 81 MG PO SCH (08:49)
[2024-05-05 08:55] LABS: Glucose,Whole Blood 140 mg/dL (70-110)
--- NOTE | 2024-05-05 10:06 | P.PN ---
Subjective Patient is seen in follow-up for chronic kidney disease. GFR at baseline. Oral intake fair. Vital signs are stable. General: No acute distress. HEENT: On nasal cannula. LUNGS: Scattered rhonchi. HEART: Rate and Rhythm are regular. ABDOMEN: Nontender. EXTREMITITES: No edema. Objective - Vital Signs Vital signs: Vital Signs Temp 98.8 F 05/05/24 08:00 Pulse 64 05/05/24 09:00 Resp 15 05/05/24 09:00 BP 98/66 05/04/24 04:00 Pulse Ox 94 L 05/05/24 09:00 FiO2 50 05/03/24 20:00 Intake & Output 05/04/24 05/05/24 05/05/24 18:59 06:59 18:59 Intake Total 796.465 617.283 640.117 Output Total 580 430 35 Balance 216.465 187.283 605.117 Weight 50.7 kg 56.8 kg Intake: IV 619 607 98 0.9 PRESSURE BAG 99 117 18 CO/CI 110 100 20 Sodium Chloride 0.9% 1, 410 390 60 000 ml @ 30 mls/hr IV . Q24H [facility] Rx#:[id number] Intake, IV Titration 27.465 10.283 2.117 Amount Insulin Regular 100 unit 16.609 10.283 2.117 In Sodium Chloride 0.9% 100 ml @ Per Protocol IV .Q0M [facility] Rx#:[id number] Milrinone-D5w Pmx 20 mg 10.856 In Dextrose/Water 1 100ml .bag @ Per Protocol IV . Q0M [facility] Rx#:[id number] Oral 150 540 Output: Chest Tube Drainage 280 120 Chest Tube Mediastinal 280 120 Urine 300 310 35 Other: Voiding Method Indwelling Catheter Indwelling Catheter Indwelling Catheter ABP, PAP, CO, CI - Last Documented Arterial Blood Pressure 102/54 Pulmonary Artery Pressure 38/19 Cardiac Output 2.6 Cardiac Index 1.8 - Labs CBC & Chem 7: 05/05/24 04:08 05/05/24 04:08 Labs: Abnormal Lab Results - Last 24 Hours (Table) 05/04/24 05/04/24 05/04/24 Range/Units 03:53 10:02 11:10 WBC (3.8-10.6) k/uL RBC (3.80-5.40) m/uL Hgb (11.4-16.0) gm/dL Hct (34.0-46.0) % Plt Count (150-450) k/uL Neutrophils # (1.3-7.7) k/uL Sodium (137-145) mmol/L BUN (7-17) mg/dL Glucose (74-99) mg/dL POC Glucose (mg/dL) 169 H 140 H (70-110) mg/dL Calcium (8.4-10.2) mg/dL Iron 16 L (50-170) UG/DL TIBC 154 L (228-460) UG/DL % Saturation 10.39 L (12.00-45.00) Transferrin 110.0 L (204.0-354.0) mg/dL AST (14-36) U/L Total Protein (6.3-8.2) g/dL Albumin (3.5-5.0) g/dL 05/04/24 05/04/24 05/04/24 Range/Units 11:57 13:07 14:12 WBC (3.8-10.6) k/uL RBC (3.80-5.40) m/uL Hgb (11.4-16.0) gm/dL Hct (34.0-46.0) % Plt Count (150-450) k/uL Neutrophils # (1.3-7.7) k/uL Sodium (137-145) mmol/L BUN (7-17) mg/dL Glucose (74-99) mg/dL POC Glucose (mg/dL) 119 H 174 H 151 H (70-110) mg/dL Calcium (8.4-10.2) mg/dL Iron (50-170) UG/DL TIBC (228-460) UG/DL % Saturation (12.00-45.00) Transferrin (204.0-354.0) mg/dL AST (14-36) U/L Total Protein (6.3-8.2) g/dL Albumin (3.5-5.0) g/dL 05/04/24 05/04/24 05/04/24 Range/Units 15:11 16:01 18:05 WBC (3.8-10.6) k/uL RBC (3.80-5.40) m/uL Hgb (11.4-16.0) gm/dL Hct (34.0-46.0) % Plt Count (150-450) k/uL Neutrophils # (1.3-7.7) k/uL Sodium (137-145) mmol/L BUN (7-17) mg/dL Glucose (74-99) mg/dL POC Glucose (mg/dL) 130 H 128 H 119 H (70-110) mg/dL Calcium (8.4-10.2) mg/dL Iron (50-170) UG/DL TIBC (228-460) UG/DL % Saturation (12.00-45.00) Transferrin (204.0-354.0) mg/dL AST (14-36) U/L Total Protein (6.3-8.2) g/dL Albumin (3.5-5.0) g/dL 05/04/24 05/04/24 05/04/24 Range/Units 19:10 19:50 20:56 WBC (3.8-10.6) k/uL RBC (3.80-5.40) m/uL Hgb (11.4-16.0) gm/dL Hct (34.0-46.0) % Plt Count (150-450) k/uL Neutrophils # (1.3-7.7) k/uL Sodium (137-145) mmol/L BUN (7-17) mg/dL Glucose (74-99) mg/dL POC Glucose (mg/dL) 121 H 149 H 151 H (70-110) mg/dL Calcium (8.4-10.2) mg/dL Iron (50-170) UG/DL TIBC (228-460) UG/DL % Saturation (12.00-45.00) Transferrin (204.0-354.0) mg/dL AST (14-36) U/L Total Protein (6.3-8.2) g/dL Albumin (3.5-5.0) g/dL 05/04/24 05/05/24 05/05/24 Range/Units 21:53 00:03 00:52 WBC (3.8-10.6) k/uL RBC (3.80-5.40) m/uL Hgb (11.4-16.0) gm/dL Hct (34.0-46.0) % Plt Count (150-450) k/uL Neutrophils # (1.3-7.7) k/uL Sodium (137-145) mmol/L BUN (7-17) mg/dL Glucose (74-99) mg/dL POC Glucose (mg/dL) 140 H 115 H 122 H (70-110) mg/dL Calcium (8.4-10.2) mg/dL Iron (50-170) UG/DL TIBC (228-460) UG/DL % Saturation (12.00-45.00) Transferrin (204.0-354.0) mg/dL AST (14-36) U/L Total Protein (6.3-8.2) g/dL Albumin (3.5-5.0) g/dL 05/05/24 05/05/24 05/05/24 Range/Units 01:53 03:04 04:08 WBC 12.4 H (3.8-10.6) k/uL RBC 3.05 L (3.80-5.40) m/uL Hgb 9.4 L (11.4-16.0) gm/dL Hct 29.3 L (34.0-46.0) % Plt Count 73 L (150-450) k/uL Neutrophils # 10.2 H (1.3-7.7) k/uL Sodium (137-145) mmol/L BUN (7-17) mg/dL Glucose (74-99) mg/dL POC Glucose (mg/dL) 132 H 124 H (70-110) mg/dL Calcium (8.4-10.2) mg/dL Iron (50-170) UG/DL TIBC (228-460) UG/DL % Saturation (12.00-45.00) Transferrin (204.0-354.0) mg/dL AST (14-36) U/L Total Protein (6.3-8.2) g/dL Albumin (3.5-5.0) g/dL 05/05/24 05/05/24 05/05/24 Range/Units 04:08 04:08 05:05 WBC (3.8-10.6) k/uL RBC (3.80-5.40) m/uL Hgb (11.4-16.0) gm/dL Hct (34.0-46.0) % Plt Count (150-450) k/uL Neutrophils # (1.3-7.7) k/uL Sodium 130 L (137-145) mmol/L BUN 20 H (7-17) mg/dL Glucose 111 H (74-99) mg/dL POC Glucose (mg/dL) 119 H 118 H (70-110) mg/dL Calcium 8.3 L (8.4-10.2) mg/dL Iron (50-170) UG/DL TIBC (228-460) UG/DL % Saturation (12.00-45.00) Transferrin (204.0-354.0) mg/dL AST 59 H (14-36) U/L Total Protein 4.9 L (6.3-8.2) g/dL Albumin 3.0 L (3.5-5.0) g/dL 05/05/24 05/05/24 05/05/24 Range/Units 06:02 06:48 08:54 WBC (3.8-10.6) k/uL RBC (3.80-5.40) m/uL Hgb (11.4-16.0) gm/dL Hct (34.0-46.0) % Plt Count (150-450) k/uL Neutrophils # (1.3-7.7) k/uL Sodium (137-145) mmol/L BUN (7-17) mg/dL Glucose (74-99) mg/dL POC Glucose (mg/dL) 143 H 126 H 140 H (70-110) mg/dL Calcium (8.4-10.2) mg/dL Iron (50-170) UG/DL TIBC (228-460) UG/DL % Saturation (12.00-45.00) Transferrin (204.0-354.0) mg/dL AST (14-36) U/L Total Protein (6.3-8.2) g/dL Albumin (3.5-5.0) g/dL Assessment and Plan Plan: Assessment: 1. Chronic kidney disease stage IIIa with baseline creatinine 1-1.3 secondary to nephrosclerosis. GFR at baseline. 2. Status post aortic valve replacement and mitral valve repair May 03, 2024. On Primacor. 3. Mild hyperkalemia secondary to underlying CKD and use of KHADIJAH inhibitor. Resolved. 4. Anemia. Iron deficiency noted. 5. Volume overload. Plan: 20 mg IV Lasix once today. Add IV iron. Avoid nephrotoxins. Continue to monitor renal function and urine output. Avoid magnesium containing laxatives as magnesium level is high.
[2024-05-05 10:55] LABS: Glucose,Whole Blood 118 mg/dL (70-110)
[2024-05-05] MEDS: SODIUM FERRIC GLUCONAT-SUCROSE 125 MG in SODIUM CHLORIDE 0.9% 100 ML IVPB SCH (11:34)
[2024-05-05] MEDS: FUROSEMIDE 10 MG/ML 2 ML VIAL IV ONE (11:34)
[2024-05-05] MEDS: LOSARTAN 25 MG TAB PO SCH (11:55)
[2024-05-05] MEDS: INSULIN LISPRO (HumaLOG) 100 UNIT/ML 10 mL VL SQ SCH (16:28)
[2024-05-05 16:29] LABS: Glucose,Whole Blood 133 mg/dL (70-110)
[2024-05-05] MEDS: MIDODRINE 5 MG TAB PO SCH (16:30)
--- NOTE | 2024-05-05 16:41 | P.PN ---
Progress Note - Text Progress Note Date: 05/05/24 - Chief Complaint Aortic valve replacement etc. - History of Present Illness This is a pleasant 79year-old patient, follows with Dr. Thayer. 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 Kimbrough macular degeneration. Patient yesterday underwent arctic valve replacement with a bioprosthesis, mitral valve repair with annuloplasty, exclusion of left atrial appendage using a clip,. Today patient is up in a chair. Extubated. Drips include IV insulin, milrinone, amiodarone. Plan to being switched over to p.o. Paced rhythm. Has to chest tubes mediastinal. Clear liquid diet. Doing about 1000 cc on incentive spirometry. May 05: Sitting up in a recliner. Slight shortness of breath. On IV milrinone and IV heparin drip. Paced rhythm. [address] Eating fair. Been taken off insulin drip. Active Medications Acetaminophen (Acetaminophen Tab 325 Mg Tab) 650 mg PO Q4HR PRN PRN Reason: Fever And/ Or Mild Pain (1-3) Last Admin: 05/05/24 12:49 Dose: 650 mg Albuterol/Ipratropium (Ipratropium-Albuterol 3 Ml Neb) 3 ml INHALATION RT-Q2H PRN PRN Reason: Shortness Of Breath Or Wheezing Albuterol/Ipratropium (Ipratropium-Albuterol 3 Ml Neb) 3 ml INHALATION RT-QID [facility] Last Admin: 05/05/24 15:48 Dose: 3 ml Amiodarone HCl (Amiodarone 200 Mg Tab) 200 mg PO DAILY [facility] Last Admin: 05/05/24 08:49 Dose: 200 mg Ascorbic Acid (Ascorbic Acid 500 Mg Tab) 500 mg PO DAILY [facility] Last Admin: 05/05/24 08:49 Dose: 500 mg Aspirin (Aspirin 81 Mg) 81 mg PO DAILY [facility] Last Admin: 05/05/24 08:49 Dose: 81 mg Benzocaine/Menthol (Benzocaine/Menthol Lozeng 1 Each Lozenge) 1 each MUCOUS MEM Q2H PRN PRN Reason: Sore Throat Last Admin: 05/05/24 04:21 Dose: 1 each Bisacodyl (Bisacodyl 10 Mg Supp) 10 mg RECTAL DAILY PRN PRN Reason: Constipation Cholecalciferol (Cholecalciferol 25 Mcg (1000 Iu) Tablet) 75 mcg PO DAILY [facility] Last Admin: 05/05/24 08:48 Dose: 75 mcg Clopidogrel Bisulfate (Clopidogrel 75 Mg Tab) 75 mg PO DAILY [facility] Last Admin: 05/05/24 08:49 Dose: 75 mg Dextrose/Water (Dextrose 50% Syringe 50 Ml) 25 ml IVP PER PROTOCOL PRN; Protocol PRN Reason: Hypoglycemia Dextrose/Water (Dextrose 50% Syringe 50 Ml) 50 ml IVP PER PROTOCOL PRN; Protocol PRN Reason: Hypoglycemia Last Admin: 05/03/24 14:31 Dose: 50 ml Heparin Sodium (Porcine) (Heparin Sodium,Porcine 5,000 Unit/Ml 1 Ml Vial) 5,000 unit SQ Q8HR [facility] Last Admin: 05/05/24 15:59 Dose: 5,000 unit Hydralazine HCl (Hydralazine Hcl 25 Mg Tab) 25 mg PO Q8HR [facility] Last Admin: 05/05/24 15:57 Dose: Not Given Amiodarone HCl 150 mg/ (Dextrose/Water) 103 mls @ 618 mls/hr IV .Q10M PRN PRN Reason: A.FIB/FLUTTER Calcium Gluconate/Sodium (Chloride 2 gm/ IV Solution) 100 mls @ 100 mls/hr IVPB ONCE PRN PRN Reason: Ionized Calcium less than 4.4 Stop: 06/02/24 13:59 Milrinone Lactate/Dextrose 20 (mg/ IV Solution) 100 mls @ 0 mls/hr IV .Q0M [facility]; Protocol Last Titration: 05/04/24 08:00 Dose: 0.125 mcg/kg/min, 1.77 mls/hr Sodium Chloride (Saline 0.9%) 1,000 mls @ 30 mls/hr IV .Q24H [facility] Last Admin: 05/05/24 11:42 Dose: Not Given Ferric Sodium Gluconate 125 mg (/ Sodium Chloride) 110 mls @ 100 mls/hr IVPB DAILY [facility] Stop: 05/08/24 10:14 Last Admin: 05/05/24 11:34 Dose: 100 mls/hr Insulin Human Lispro (Insulin Lispro (Humalog) 100 Unit/Ml 10 Ml Vl) 0 unit SQ ACHS [facility]; Protocol Last Admin: 05/05/24 16:28 Dose: Not Given Lactobacillus Acidophilus (Lactobacillus Acidophilus/Pect 1 Each Capsule) 1 each PO BID [facility] Last Admin: 05/05/24 08:49 Dose: 1 each Losartan Potassium (Losartan 25 Mg Tab) 12.5 mg PO DAILY@1200 [facility] Last Admin: 05/05/24 11:55 Dose: 12.5 mg Metoclopramide HCl (Metoclopramide 5 Mg/Ml 2 Ml Vial) 10 mg IVP Q4H PRN PRN Reason: Nausea And Vomiting Last Admin: 05/04/24 21:12 Dose: 10 mg Metoprolol Tartrate (Metoprolol Tartrate 12.5 Mg Tab) 12.5 mg PO BID [facility] Last Admin: 05/05/24 08:49 Dose: 12.5 mg Midodrine (Midodrine 5 Mg Tab) 5 mg PO AC-TID [facility] Last Admin: 05/05/24 16:30 Dose: 5 mg Miscellaneous Information (Potassium Replacement Protocol 1 Each Misc) 1 each MISCELLANE DAILY PRN; Protocol PRN Reason: Per Protocol Miscellaneous Information (Magnesium Replacement Protocol 1 Each Misc) 1 each MISCELLANE DAILY PRN; Protocol PRN Reason: Per Protocol Multivitamins/Minerals (Vit A,C & L-Bkrjdf-Wjmrwqxs 1 Each Tab) 1 each PO BID [facility] Last Admin: 05/05/24 08:49 Dose: 1 each Ondansetron HCl (Ondansetron 4 Mg/2 Ml Vial) 4 mg IVP Q6HR PRN PRN Reason: Nausea And Vomiting Last Admin: 05/05/24 06:05 Dose: 4 mg Oxycodone HCl (Oxycodone Hcl 5 Mg Tab) 5 mg PO Q4HR PRN PRN Reason: Moderate Pain (Scale 4 to 6) Oxycodone HCl (Oxycodone Hcl 5 Mg Tab) 10 mg PO Q4HR PRN PRN Reason: Severe Pain (Scale 7 to 10) Pantoprazole Sodium (Pantoprazole 40 Mg Tablet) 40 mg PO AC-BRKFST [facility] Last Admin: 05/05/24 06:11 Dose: 40 mg Senna/Docusate Sodium (Sennosides-Docusate Sodium 1 Each Tab) 2 each PO HS [facility] Last Admin: 05/04/24 20:18 Dose: 2 each Sodium Chloride (Sodium Chloride 0.9% Flush 10 Ml Syringe) 10 ml IV BID [facility] Last Admin: 05/05/24 09:23 Dose: Not Given Social history: Lives alone. Denies any alcohol or smoking history. Physical examination: VITAL SIGNS: 99, 96, 16, 78 x 50, 94% on 2 L GENERAL: BMI 21.1, sitting up in the recliner, eating lunch EYES: Pupils equal. Conjunctiva clifford l. HEENT: External appearance of nose and ears normal, oral cavity grossly normal. Decreased hearing NECK: JVD unable to assess; masses not palpable. HEART: Heart sounds irregular; no edema. LUNGS: Respiratory rate increased; i diminished breath sounds. X [address] ABDOMEN: Soft, nontender, liver spleen not palpable, no masses palpable. PSYCH: Alert and oriented x3; mood and affect clifford l. MUSCULOSKELETAL:No Clubbing/cyanosis;muscles-grossly intact. OA INVESTIGATIONS, reviewed in the clinical context: May 05: White count 12.4 hemoglobin 9.4 platelets 93 potassium 4.6 creatinine 0.74 May 04, 2024: White count 8.7 hemoglobin 9.5 platelets 64 sodium 137 potassium 5.6 BUN 19 creatinine 0.87 magnesium 2.5 iron 16 TIBC 154% saturation 10.3 transferrin 110 ferritin 176 Chest x-ray film personally reviewed by me-some venous prominence. Pacemaker Previous April 27, 2024: Hemoglobin 14.5 platelets 210 2D echocardiogram [April 29, 2023] EF 40%. Moderate MR. Severe TR. Severe pulmonary hypertension. Severe AR. Cardiac catheterization [April 2022] mild nonobstructive CAD Assessment plan: -aorctic valve replacement with a bioprosthesis, mitral valve repair with annuloplasty, exclusion of left atrial appendage using a clip, on May 03, [address] Hammond [Prior moderate mitral regurgitation, severe tricuspid regurgitation, severe aortic regurgitation] Patient currently has 2 chest tubes [mediastinum] in place -History of atrial fibrillation. Currently paced rhythm. Lopressor. Cordarone -Acute postprocedure blood loss anemia expected from surgery Follow H&H -Dilutional thrombocytopenia. Preoperative platelets 210 Follow closely -Hyperkalemia: Corrected Calcium gluconate, insulin given. -Hyponatremia likely hypervolemic Follow fluid status closely. Encourage oral intake. -Hard of hearing - chronic congestive heart failure exacerbation from systolic dysfunction nonischemic cardiomyopathy EF 40%, Follow fluid status -Severe secondary pulmonary hypertension -Essential hypertension Lopressor. Hydralazine -Primary osteoarthritis Tylenol as needed -Colonic diverticulosis, asymptomatic -Chronic kidney disease stage IIIa, baseline creatinine from 1 2-1.3, secondary nephrosclerosis Follows with Dr. Kimbrough outpatient -Pacemaker 2017 -Full code Patient to come off insulin drip. Incentive spirometry continue. Discussed with patient. Thank you Dr. Hammond Past Medical History Past Medical History: Atrial Fibrillation, Heart Failure, CVA/TIA, Eye Disorder, Hearing Disorder / Deafness, Hyperlipidemia, Hypertension, Osteoarthritis (OA), Renal Disease, Skin Disorder Additional Past Medical History / Comment(s): SOB in the evening and through the night has improved with med changes. Tinnitus, bilateral hearing aid use. Diverticular disease, hemorrhoids. Hx kidney stones. hx Anemia. 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 Stage 3 kidney disease. Macular degeneration left eye. Small hiatal hernia. Reddness to cheeks, at times feels tingling. watching shadow by liver. History of Any Multi-Drug Resistant Organisms: None Reported Past Surgical History: Adenoidectomy, Appendectomy, Section, Heart Catheterization, Pacemaker, Tonsillectomy Additional Past Surgical History / Comment(s): SINUS SURGERY, section X3, CHRISTY, colonoscopy. Past Anesthesia/Blood Transfusion Reactions: No Reported Reaction Additional Past Anesthesia/Blood Transfusion Reaction / Comm: Hx blood transfusion with no issues 50 yrs ago. Type of Cardiac Device: Permanent Pacemaker Device Placement Date:: 01/2017 Left chest Smoking Status: Never smoker
--- NOTE | 2024-05-05 16:51 | P.PN ---
Subjective Progress Note Date: 05/05/24 This is a 79-year-old female patient being seen in the intensive care unit postop as the patient had severe aortic valve regurgitation with mitral valve regurgitation and mild pulmonary hypertension and moderate LV dysfunction and the patient was taken to the operating room and underwent aortic valve rep lacement and mitral valve repair. The patient is also noted to have paroxysmal A-fib and has a pacemaker in place along with history of chronic kidney disease and previous history of embolic stroke with full recovery. The patient was brought into the intensive care and intubated on the mechanical ventilator. The patient was sedated with propofol. The patient is on the mechanical ventilator, assist-control mode rate of 12, tidal volume of 400, FiO2 of 100% with a PEEP of 5. Initial blood gases postop in the intensive care unit showed a pH of 7.57 with a pCO2 of 27 and pO2 of 256. FiO2 was dropped down to 60% and follow-up gases showed a pH of 7. 36 with a pCO2 of 47 and pO2 of 153. The patient's PA pressures were 38/28. Cardiac index was 1.7. Patient has mediastinal x2.. Chest x-ray showed adequate expansion of both lungs. No evidence of any pneumothorax. The patient has a right IJ [place]-Kip catheter in place. The patient is atrially paced at rate of 80. The patient is currently on low-dose norepinephrine and milrinone which is running at 0.2 mcg/kg/min. Urine output is adequate. Initial blood work showed a white cell count of 8 with a hemoglobin 9.1 and a platelet count of 66. The sodium is at 141, potassium is at 4.4, chloride is 109 with a bicarb of 25 BUN of 18 with a creatinine of 0.7. IV fluids are normal saline at rate of 50 cc an hour. No other significant events postop. On 05/04/2024, patient is being seen for a follow-up. The patient is post aortic valve replacement and mitral valve repair and the patient is postop day #2. The patient was weaned off the mechanical ventilator and the patient was extubated any major difficulties and the patient is currently on 2 L of oxygen by nasal cannula. Hemodynamically, the patient is still requiring inotropes and the patient is currently on Primacor which is running at 0.125 mcg/kg/min and the pa tient is off norepinephrine. Cardiac index today is at 2.3. PA pressures are 31/11. The patient remains atrially paced at a rate of 80. Urine output is noted of 30 cc an hour. Remains on amiodarone and the patient will be switched from amiodarone drip to oral amiodarone. Using incentive spirometer, pulling approximately thousand. Chest x-ray from this morning was noted and the patient has cardiomegaly and pulm vascular congestion and small bilateral pleural effusions. Mediastinal chest tubes are still in place and output is minimal at this point in time. The patient is calm and comfortable. Denies having any specific complaints. Remains on insulin drip which is running at 1 unit an hour for adequate blood sugar control. On 05/05/2024, the patient is being seen for a follow-up. The patient is currently on her intrinsic pacemaker and she is pacing at rate of 60. Her cardiac output and index are being monitored. Earlier this morning, the cardiac index was a 2.2. The patient remains on milrinone 0.125 mcg/kg/min. Urine output is adequate. Output from the chest tubes are minimal. Using incentive spirometer. She remains on 2 L of oxygen by nasal cannula. Chest x-ray from today shows small bilateral pleural effusions and cardiomegaly. Blood work from today shows a white cell count of 12.4, hemoglobin of 9.4 and platelet count of 73. BUN is 20 with a creatinine of 0.7 and sodium is at 130. The patient was started on metoprolol 12.5 mg p.o. twice a day. She is centimeter on 12 mg p.o. daily. She remains on aspirin. Rest of the medications remain unchanged. Midodrine was also added 5 mg p.o. 3 times daily. She is also on losartan 12.5 mg p.o. daily. She is currently postop day #2 following a aortic valve replacement and mitral valve repair. Objective - Vital Signs Vital signs: Vital Signs Temp 98.8 F 05/05/24 08:00 Pulse 64 05/05/24 09:00 Resp 15 05/05/24 09:00 BP 98/66 05/04/24 04:00 Pulse Ox 94 L 05/05/24 09:00 FiO2 50 05/03/24 20:00 Intake & Output 05/04/24 05/05/24 05/05/24 18:59 06:59 18:59 Intake Total 796.465 617.283 640.117 Output Total 580 430 35 Balance 216.465 187.283 605.117 Weight 50.7 kg 56.8 kg Intake: IV 619 607 98 0.9 PRESSURE BAG 99 117 18 CO/CI 110 100 20 Sodium Chloride 0.9% 1, 410 390 60 000 ml @ 30 mls/hr IV . Q24H [facility] Rx#:[id number] Intake, IV Titration 27.465 10.283 2.117 Amount Insulin Regular 100 unit 16.609 10.283 2.117 In Sodium Chloride 0.9% 100 ml @ Per Protocol IV .Q0M [facility] Rx#:[id number] Milrinone-D5w Pmx 20 mg 10.856 In Dextrose/Water 1 100ml .bag @ Per Protocol IV . Q0M [facility] Rx#:[id number] Oral 150 540 Output: Chest Tube Drainage 280 120 Chest Tube Mediastinal 280 120 Urine 300 310 35 Other: Voiding Method Indwelling Catheter Indwelling Catheter Indwelling Catheter ABP, PAP, CO, CI - Last Documented Arterial Blood Pressure 102/54 Pulmonary Artery Pressure 38/19 Cardiac Output 2.6 Cardiac Index 1.8 - Exam CONSTITUTIONAL: Appears comfortable, cooperative, no acute distress RESPIRATORY: Lungs sounds diminished in the bases bilaterally. Respirations even, nonlabored. Currently on 2 L nasal cannula with oxygen saturation 96%. Able to achieve 1000 mL on incentive spirometry. Strong cough. CARDIOVASCULAR: S1, S2 present. Regular rate and rhythm, atrially paced on telemetry. Sternum stable. Palpable peripheral pulses bilaterally. No edema present. No calf pain or tenderness noted. Heart hugger in place with patient demonstrating appropriate use. Antiembolism stockings, SCDs present. GASTROINTESTINAL: Abdomen soft, nontender, nondistended. Active bowel sounds present 4 quadrants. Tolerating liquids. Positive flatus GENITOURINARY: Palacios present draining clear, yellow urine. Output overnight 10-45 mL per hour, 585 mL in the last 24 hours INTEGUMENTARY: Skin is warm and dry with evidence of good perfusion. Anterior chest incision well approximated and covered with dry intact dressing NEUROLOGIC: Cranial nerves II through XII intact MUSKULOSKELETAL: Able to move all extremities, strength equal bilaterally, gait normal PSYCHIATRIC: Alert and oriented to person place and time, appropriate affect, intact judgment and insight INVASIVE LINES AND TUBES: Mediastinal chest tube present and connected to wall suction, no air leaks present, 80 mL serosanguineous drainage overnight, 400 mL in the last 24 hours. Atrial epicardial pacemaker wires present, connected to generator, AAI mode with rate 80 bpm. Right internal jugular [place]/Cordis, right radial arterial line present. Last CO/CI 2.8/2.0, PA 43/25, CVP 19. - Labs CBC & Chem 7: 05/05/24 04:08 05/05/24 04:08 Labs: Abnormal Lab Results - Last 24 Hours (Table) 05/04/24 05/04/24 05/04/24 Range/Units 03:53 10:02 11:10 WBC (3.8-10.6) k/uL RBC (3.80-5.40) m/uL Hgb (11.4-16.0) gm/dL Hct (34.0-46.0) % Plt Count (150-450) k/uL Neutrophils # (1.3-7.7) k/uL Sodium (137-145) mmol/L BUN (7-17) mg/dL Glucose (74-99) mg/dL POC Glucose (mg/dL) 169 H 140 H (70-110) mg/dL Calcium (8.4-10.2) mg/dL Iron 16 L (50-170) UG/DL TIBC 154 L (228-460) UG/DL % Saturation 10.39 L (12.00-45.00) Transferrin 110.0 L (204.0-354.0) mg/dL AST (14-36) U/L Total Protein (6.3-8.2) g/dL Albumin (3.5-5.0) g/dL 05/04/24 05/04/24 05/04/24 Range/Units 11:57 13:07 14:12 WBC (3.8-10.6) k/uL RBC (3.80-5.40) m/uL Hgb (11.4-16.0) gm/dL Hct (34.0-46.0) % Plt Count (150-450) k/uL Neutrophils # (1.3-7.7) k/uL Sodium (137-145) mmol/L BUN (7-17) mg/dL Glucose (74-99) mg/dL POC Glucose (mg/dL) 119 H 174 H 151 H (70-110) mg/dL Calcium (8.4-10.2) mg/dL Iron (50-170) UG/DL TIBC (228-460) UG/DL % Saturation (12.00-45.00) Transferrin (204.0-354.0) mg/dL AST (14-36) U/L Total Protein (6.3-8.2) g/dL Albumin (3.5-5.0) g/dL 05/04/24 05/04/24 05/04/24 Range/Units 15:11 16:01 18:05 WBC (3.8-10.6) k/uL RBC (3.80-5.40) m/uL Hgb (11.4-16.0) gm/dL Hct (34.0-46.0) % Plt Count (150-450) k/uL Neutrophils # (1.3-7.7) k/uL Sodium (137-145) mmol/L BUN (7-17) mg/dL Glucose (74-99) mg/dL POC Glucose (mg/dL) 130 H 128 H 119 H (70-110) mg/dL Calcium (8.4-10.2) mg/dL Iron (50-170) UG/DL TIBC (228-460) UG/DL % Saturation (12.00-45.00) Transferrin (204.0-354.0) mg/dL AST (14-36) U/L Total Protein (6.3-8.2) g/dL Albumin (3.5-5.0) g/dL 05/04/24 05/04/24 05/04/24 Range/Units 19:10 19:50 20:56 WBC (3.8-10.6) k/uL RBC (3.80-5.40) m/uL Hgb (11.4-16.0) gm/dL Hct (34.0-46.0) % Plt Count (150-450) k/uL Neutrophils # (1.3-7.7) k/uL Sodium (137-145) mmol/L BUN (7-17) mg/dL Glucose (74-99) mg/dL POC Glucose (mg/dL) 121 H 149 H 151 H (70-110) mg/dL Calcium (8.4-10.2) mg/dL Iron (50-170) UG/DL TIBC (228-460) UG/DL % Saturation (12.00-45.00) Transferrin (204.0-354.0) mg/dL AST (14-36) U/L Total Protein (6.3-8.2) g/dL Albumin (3.5-5.0) g/dL 05/04/24 05/05/24 05/05/24 Range/Units 21:53 00:03 00:52 WBC (3.8-10.6) k/uL RBC (3.80-5.40) m/uL Hgb (11.4-16.0) gm/dL Hct (34.0-46.0) % Plt Count (150-450) k/uL Neutrophils # (1.3-7.7) k/uL Sodium (137-145) mmol/L BUN (7-17) mg/dL Glucose (74-99) mg/dL POC Glucose (mg/dL) 140 H 115 H 122 H (70-110) mg/dL Calcium (8.4-10.2) mg/dL Iron (50-170) UG/DL TIBC (228-460) UG/DL % Saturation (12.00-45.00) Transferrin (204.0-354.0) mg/dL AST (14-36) U/L Total Protein (6.3-8.2) g/dL Albumin (3.5-5.0) g/dL 05/05/24 05/05/24 05/05/24 Range/Units 01:53 03:04 04:08 WBC 12.4 H (3.8-10.6) k/uL RBC 3.05 L (3.80-5.40) m/uL Hgb 9.4 L (11.4-16.0) gm/dL Hct 29.3 L (34.0-46.0) % Plt Count 73 L (150-450) k/uL Neutrophils # 10.2 H (1.3-7.7) k/uL Sodium (137-145) mmol/L BUN (7-17) mg/dL Glucose (74-99) mg/dL POC Glucose (mg/dL) 132 H 124 H (70-110) mg/dL Calcium (8.4-10.2) mg/dL Iron (50-170) UG/DL TIBC (228-460) UG/DL % Saturation (12.00-45.00) Transferrin (204.0-354.0) mg/dL AST (14-36) U/L Total Protein (6.3-8.2) g/dL Albumin (3.5-5.0) g/dL 05/05/24 05/05/24 05/05/24 Range/Units 04:08 04:08 05:05 WBC (3.8-10.6) k/uL RBC (3.80-5.40) m/uL Hgb (11.4-16.0) gm/dL Hct (34.0-46.0) % Plt Count (150-450) k/uL Neutrophils # (1.3-7.7) k/uL Sodium 130 L (137-145) mmol/L BUN 20 H (7-17) mg/dL Glucose 111 H (74-99) mg/dL POC Glucose (mg/dL) 119 H 118 H (70-110) mg/dL Calcium 8.3 L (8.4-10.2) mg/dL Iron (50-170) UG/DL TIBC (228-460) UG/DL % Saturation (12.00-45.00) Transferrin (204.0-354.0) mg/dL AST 59 H (14-36) U/L Total Protein 4.9 L (6.3-8.2) g/dL Albumin 3.0 L (3.5-5.0) g/dL 05/05/24 05/05/24 05/05/24 Range/Units 06:02 06:48 08:54 WBC (3.8-10.6) k/uL RBC (3.80-5.40) m/uL Hgb (11.4-16.0) gm/dL Hct (34.0-46.0) % Plt Count (150-450) k/uL Neutrophils # (1.3-7.7) k/uL Sodium (137-145) mmol/L BUN (7-17) mg/dL Glucose (74-99) mg/dL POC Glucose (mg/dL) 143 H 126 H 140 H (70-110) mg/dL Calcium (8.4-10.2) mg/dL Iron (50-170) UG/DL TIBC (228-460) UG/DL % Saturation (12.00-45.00) Transferrin (204.0-354.0) mg/dL AST (14-36) U/L Total Protein (6.3-8.2) g/dL Albumin (3.5-5.0) g/dL Assessment and Plan Plan: Aortic valve replacement and mitral valve repair for severe aortic and and mitral valve regurgitation. The patient is currently postop day # 2. Hemodyn amically stable. Cardiac index is being monitored and currently is at 2.2. Maintained on milrinone and she is off Levophed. Adequate urine output. Cardiac rhythm is is paced and the patient is utilizing her intrinsic pacemaker at rate of 60 Postthoracotomy. Mediastinal chest tube in place. Extubated to 2 L of oxygen by nasal cannula. Continues to have some pulm vessel congestion and small bilateral pleural effusion. Output from mediastinal chest tubes are minimal Paroxysmal atrial fibrillation, current rhythm is paced. The patient has a pacemaker. 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 Hypertension Hyperlipidemia Osteoarthritis History of nephrolithiasis/kidney stones Diverticular disease History of tachybradycardia syndrome History of macular degeneration Small hiatal hernia Anemia, acute, expected outcome of surgery Acute thrombocytopenia, expected lower, surgery Plan Continues incentive spirometer Consider removal of the chest tubes Continue milrinone titrated dose based on cardiac output and urine output Monitor cardiac output and index and keep the [place]-Kip catheter in place Return to the atrial pacemaker off and the patient is utilizing her intrinsic pacemaker Amiodarone 200 mg p.o. daily Metoprolol 12.5 mg p.o. twice a day Losartan 12.5 mg p.o. daily Midodrine 5 mg p.o. 3 times daily Discontinue insulin drip and utilize insulin sliding scale coverage Adequate pain control with oxycodone Heparin subcu 5000 units every 8 hours and close monitoring of the white count Will continue to follow and the patient will be kept in ICU for another 24 hours. Will continue to follow, evaluation was done and 32 minutes Time with Patient: Greater than 30
[2024-05-05] MEDS ORDERED: FUROSEMIDE 10 MG/ML 2 ML VIAL IV ONE (17:00)
[2024-05-05 21:10] LABS: Glucose,Whole Blood 147 mg/dL (70-110)
--- NOTE | 2024-05-05 21:14 | PN ---
PROGRESS NOTE SUBJECTIVE: Jenise is a 79-year-old lady, who underwent aortic valve replacement, mitral valve repair, and left atrial appendage closure. This morning, she remains in a paced rhythm. She has an underlying permanent pacemaker. The temporary pacemaker done during surgery had been disconnected. PHYSICAL EXAMINATION: VITAL SIGNS: On exam, heart rate is 86 beats per minute, blood pressure is 102/64, respiratory rate is 18. CHEST: Reveals good air entry bilaterally. HEART: Reveals first and second heart sounds. No gallop. EXTREMITIES: Did not reveal any edema. Peripheral pulses are felt. The patient is currently on: 1. Amiodarone 200 daily. 2. Aspirin. 3. Lopressor. ASSESSMENT: 1. Aortic stenosis, status post aortic valve replacement. 2. Mitral regurgitation, status post mitral valve repair. 3. History of sick sinus syndrome, status post permanent pacemaker. PLAN: Resume Eliquis when feasible from surgical standpoint. MMODL / IJN: [id number] /
[2024-05-05 22:20] LABS: ABG Base Excess -0.6 mmol/L; ABG HCO3 25 mmol/L (21-25); ABG Oxygen Saturation 39.6 % (94-97); ABG PCO2 43 mmHg (35-45); ABG PH 7.37 (7.35-7.45); ABG TCO2 26 mmol/L (19-24)
[2024-05-05 22:34] LABS: ABG PO2 <30 mmHg (83-108); Allen Test Performed? no
[2024-05-06] MEDS: MILRINONE-D5W PMX 20 MG in DEXTROSE/WATER 1 100ML.BAG IV SCH (00:48)
[2024-05-06 05:22] LABS: Basophils % (A) 0 %; Eosinophils % (A) 0 %; HCT 29.6 % (34.0-46.0); HGB 9.3 gm/dL (11.4-16.0); Lymphocytes # (A) 1.3 k/uL (1.0-4.8); Lymphocytes % (A) 9 %; MCH 30.3 pg (25.0-35.0); MCHC 31.6 g/dL (31.0-37.0); Mean Platelet Volume 9.6; Monocytes # (A) 0.9 k/uL (0-1.0); Monocytes % (A) 6 %; Neutrophils # (A) 11.7 k/uL (1.3-7.7); Neutrophils % (A) 83 %; RBC 3.08 m/uL (3.80-5.40); WBC 14.1 k/uL (3.8-10.6)
[2024-05-06 05:25] LABS: Platelet Count 75 k/uL (150-450)
[2024-05-06 05:46] LABS: ALT 16 U/L (4-34); AST 38 U/L (14-36); African American GFR (CKD) 71 (>60 ml/min/1.73 sqM); Albumin 2.8 g/dL (3.5-5.0); Alkaline Phosphatase 73 U/L (38-126); Anion Gap 6 mmol/L; Blood Urea Nitrogen 29 mg/dL (7-17); Calcium 8.4 mg/dL (8.4-10.2); Carbon Dioxide 21 mmol/L (22-30); Chloride 99 mmol/L (98-107); Glucose 121 mg/dL (74-99); Non-African American GFR(CKD) 62 (>60 ml/min/1.73 sqM); Potassium 4.9 mmol/L (3.5-5.1); Sodium 126 mmol/L (137-145); Total Bilirubin 0.7 mg/dL (0.2-1.3); Total Protein 4.9 g/dL (6.3-8.2)
--- NOTE | 2024-05-06 05:55 | XR ---
EXAMINATION TYPE: XR chest 1V portable DATE OF EXAM: 05/06/2024 CLINICAL INDICATION: Female, 79 years old with history of Postcardiac surgery, progress study. TECHNIQUE: Single AP portable upright view of the chest is obtained. COMPARISON: Chest x-ray from one day earlier. FINDINGS: Stable right internal jugular [place]-Kip catheter and mediastinal drainage catheter. Overlying sternal wires along with metallic aortic valve and left atrial appendage clip are all redem onstrated. Persistent cardiomegaly with small bilateral pleural effusions and with bibasilar opacity favoring co mpressive atelectasis. Osseous structures are intact. IMPRESSION: Persistent cardiomegaly with small bilateral pleural effusions. Persistent bibasilar opac ity favors compressive atelectasis. No significant change from one day earlier. [facility], , 05/06/2024 5:52 AM
[2024-05-06 08:32] LABS: ABG Base Excess -1.5 mmol/L; ABG HCO3 24 mmol/L (21-25); ABG Oxygen Saturation 40.8 % (94-97); ABG PCO2 42 mmHg (35-45); ABG PH 7.37 (7.35-7.45); ABG TCO2 25 mmol/L (19-24); Allen Test Performed? Yes
[2024-05-06 08:35] LABS: ABG PO2 <30 mmHg (83-108)
--- NOTE | 2024-05-06 08:40 | P.PN ---
Subjective Progress Note Date: 05/06/24 Principal diagnosis: Severe aortic valve regurgitation, moderate mitral valve regurgitation, mild to moderate tricuspid valve regurgitation, and mild pulmonary hypertension. Previo us medical history of moderate left ventricular dysfunction, chronic heart failure with reduced ejection fraction, hypertension, chronic kidney disease stage III, iron deficiency anemia, paroxysmal atrial fibrillation with cardioversion in 2023 on Eliquis for anticoagulation status post permanent dual- chamber pacemaker, embolic stroke with full recovery, hard of hearing, osteoarthritis, mild lung disease, COVID in 2021, and lifelong non-smoker. POD #3 aortic valve replacement using a 19 mm Inspiris pericardial bioprosthesis, mitral valve repair using a posterior annuloplasty band 26 mm annuloflex, exclusion of the left atrial appendage using a 35mm AtriClip, and transesophageal echocardiogram and epiaortic scanning. Postoperative blood loss anemia and thrombocytopenia, expected given car diopulmonary bypass and hemodilution Hyponatremia The patient was seen and examined sitting up in recliner in the intensive care unit in no acute distress. She denies significant pain, denies shortness of breath. She has been ambulatory in the hallway with nursing staff although this morning she was lightheaded/dizzy when she got up to go for a walk. Remains in sinus rhythm with heart rate in the 70s, epicardial pacemaker shut off as it was competing. Blood pressure remains borderline, CO/CI low with elevated SVR, remains on Primacor. Patient was given IV Lasix yesterday, continues on h ydralazine for afterload reduction, was started on low-dose ARB for further afterload reduction however blood pressure dropped into the 70s 80s yesterday afternoon, currently in the high 80s to low 90s systolic with mean arterial pressure in the 70s. Right internal jugular [place]/Cordis, left brachial arterial line, mediastinal chest tubes all remain. Objective - Vital Signs Vital signs: Vital Signs Temp 99.7 F H 05/06/24 04:00 Pulse 96 05/06/24 07:00 Resp 16 05/06/24 07:00 BP 78/61 05/05/24 19:30 Pulse Ox 94 L 05/06/24 07:00 FiO2 50 05/03/24 20:00 Intake & Output 05/05/24 05/06/24 05/06/24 18:59 06:59 18:59 Intake Total 1154.117 408 Output Total 670 400 Balance 484.117 8 Weight 58.1 kg Intake: IV 609 408 0.9 PRESSURE BAG 99 108 CO/CI 100 80 Sodium Chloride 0.9% 1, 310 220 000 ml @ 30 mls/hr IV . Q24H [facility] Rx#:[id number] Sodium Ferric Gluconat- 100 Sucrose 125 mg In Sodium Chloride 0.9% 100 ml @ 100 mls/hr IVPB DAILY [facility] Rx#:[id number] Intake, IV Titration 5.117 Amount Insulin Regular 100 unit 5.117 In Sodium Chloride 0.9% 100 ml @ Per Protocol IV .Q0M [facility] Rx#:[id number] Oral 540 Output: Chest Tube Drainage 30 40 Chest Tube Mediastinal 30 40 Urine 640 360 Other: Voiding Method Indwelling Catheter Indwelling Catheter ABP, PAP, CO, CI - Last Documented Arterial Blood Pressure 106/61 Pulmonary Artery Pressure 30/15 Cardiac Output 2.6 Cardiac Index 1.8 - Exam CONSTITUTIONAL: Appears comfortable, cooperative, no acute distress RESPIRATORY: Lungs sounds diminished in the bases bilaterally. Respirations even, nonlabored. Currently on 2 L nasal cannula with oxygen saturation 94%. Able to achieve 750 mL on incentive spirometry. Strong cough. CARDIOVASCULAR: S1, S2 present. Regular rate and rhythm, sinus rhythm on telemetry. Sternum stable. Palpable peripheral pulses bilaterally. Trace bilateral upper extremity edema present. No calf pain or tenderness noted. Heart hugger in place with patient demonstrating appropriate use. Antiembolism stockings, SCDs present. GASTROINTESTINAL: Abdomen soft, nontender, nondistended. Active bowel sounds present 4 quadrants. Tolerating diet. Positive flatus GENITOURINARY: Palacios present draining clear, yellow urine. Output overnight 20-50 mL per hour, 970 mL in the last 24 hours INTEGUMENTARY: Skin is warm and dry with evidence of good perfusion. Anterior chest incision well approximated and covered with dry intact dressing NEUROLOGIC: Cranial nerves II through XII intact MUSKULOSKELETAL: Able to move all extremities, strength equal bilaterally, gait normal PSYCHIATRIC: Alert and oriented to person place and time, appropriate affect, intact judgment and insight INVASIVE LINES AND TUBES: Mediastinal chest tube present and connected to wall suction, no air leaks present, no drainage overnight, 50 mL in the last 24 hours. Atrial epicardial pacemaker wires present, connected to generator, generator off. Right internal jugular [place]/Cordis, right radial arterial line present. Last CO/CI 2.6/1.8, PA 32/15, CVP 11. - Allied health notes Allied health notes reviewed: nursing - Labs CBC & Chem 7: 05/06/24 05:00 05/06/24 05:00 Labs: Abnormal Lab Results - Last 24 Hours (Table) 05/05/24 05/05/24 05/05/24 Range/Units 08:54 10:53 16:28 WBC (3.8-10.6) k/uL RBC (3.80-5.40) m/uL Hgb (11.4-16.0) gm/dL Hct (34.0-46.0) % Plt Count (150-450) k/uL Neutrophils # (1.3-7.7) k/uL ABG pO2 (83-108) mmHg ABG Total CO2 (19-24) mmol/L ABG O2 Saturation (94-97) % Hemoglobin (11.4-16.0) gm/dL Sodium (137-145) mmol/L Carbon Dioxide (22-30) mmol/L BUN (7-17) mg/dL Glucose (74-99) mg/dL POC Glucose (mg/dL) 140 H 118 H 133 H (70-110) mg/dL AST (14-36) U/L Total Protein (6.3-8.2) g/dL Albumin (3.5-5.0) g/dL 05/05/24 05/05/24 05/06/24 Range/Units 21:09 22:19 05:00 WBC 14.1 H (3.8-10.6) k/uL RBC 3.08 L (3.80-5.40) m/uL Hgb 9.3 L (11.4-16.0) gm/dL Hct 29.6 L (34.0-46.0) % Plt Count 75 L (150-450) k/uL Neutrophils # 11.7 H (1.3-7.7) k/uL ABG pO2 <30 L* (83-108) mmHg ABG Total CO2 26 H (19-24) mmol/L ABG O2 Saturation 39.6 L (94-97) % Hemoglobin 9.5 L (11.4-16.0) gm/dL Sodium (137-145) mmol/L Carbon Dioxide (22-30) mmol/L BUN (7-17) mg/dL Glucose (74-99) mg/dL POC Glucose (mg/dL) 147 H (70-110) mg/dL AST (14-36) U/L Total Protein (6.3-8.2) g/dL Albumin (3.5-5.0) g/dL 05/06/24 Range/Units 05:00 WBC (3.8-10.6) k/uL RBC (3.80-5.40) m/uL Hgb (11.4-16.0) gm/dL Hct (34.0-46.0) % Plt Count (150-450) k/uL Neutrophils # (1.3-7.7) k/uL ABG pO2 (83-108) mmHg ABG Total CO2 (19-24) mmol/L ABG O2 Saturation (94-97) % Hemoglobin (11.4-16.0) gm/dL Sodium 126 L (137-145) mmol/L Carbon Dioxide 21 L (22-30) mmol/L BUN 29 H (7-17) mg/dL Glucose 121 H (74-99) mg/dL POC Glucose (mg/dL) (70-110) mg/dL AST 38 H (14-36) U/L Total Protein 4.9 L (6.3-8.2) g/dL Albumin 2.8 L (3.5-5.0) g/dL - Imaging and Cardiology Chest x-ray: report reviewed, image reviewed Assessment and Plan Assessment: Severe aortic valve regurgitation, status post aortic valve replacement Moderate mitral valve regurgitation, status post mitral valve repair Mild to moderate tricuspid valve regurgitation Mild pulmonary hypertension Postoperative blood loss anemia and thrombocytopenia, expected given cardiopulmonary bypass and hemodilution Hyponatremia History of chronic heart failure with reduced ejection fraction, EF 40% Hypertension Chronic kidney disease stage III Iron deficiency anemia Paroxysmal atrial fibrillation with cardioversion in 2023 on Eliquis for anticoagulation status post permanent dual-chamber pacemaker, status post li gation of the left atrial appendage Embolic stroke with full recovery in 2016 Mild lung disease, preoperative FEV1 73% of predicted COVID in 2021 Lifelong non-smoker Plan: Continue to maximize medical therapy with low dose aspirin, Plavix and beta- pari. Will hold BB this am Continue hydralazine for afterload reduction, increased to 50 mg BID with hold parameters, losartan discontinued Continue oral amiodarone for A-fib prophylaxis. No anticoagulation until all l true and tubes have been discontinued No statin as the patient is sensitive to statins, no hyperlipidemia present Wean oxygen as tolerated. Encourage incentive spirometry use 10 times every hour while awake. Bronchodilators per pulmonology. Continue Primacor drip. Continue to monitor hemodynamics. Will monitor daily labs and chest x-rays, electrolyte replacement per protocol. Mixed venous gas obtained. Will give concentrated albumin followed by 40 mg IVP lasix today Increase activity, ambulate as tolerated. PT/OT/cardiac rehab following GI/DVT prophylaxis Pain control per current medication regimen. No Toradol at this time due to the patient's chronic kidney disease. Insulin management per internal medicine, preoperative hemoglobin A1c 6.1% Continue right IJ cordis and [place]-Kip catheter. Continue to monitor hemodynamics. Will discontinue chest tube Continue Palacios for another 24 hours, continue to monitor record strict accurate intake and output. Will have [employer] rep reset baseline heart rate to 70 BPM More recommendations to follow based on patient's clinical course.
[2024-05-06] MEDS: FUROSEMIDE 10 MG/ML 4 ML VIAL IV STA ×2 (09:08→16:31)
[2024-05-06] MEDS: hydrALAZINE HCL 50 MG TAB PO SCH (09:08)
[2024-05-06] MEDS: ALBUMIN HUMAN 25% 50 ML in EMPTY BAG 1 BAG IVPB ONE (09:39)
[2024-05-06 11:07] LABS: Glucose,Whole Blood 148 mg/dL (70-110)
--- NOTE | 2024-05-06 11:24 | P.PN ---
Subjective Patient is seen in follow-up for chronic kidney disease. GFR at baseline. Oral intake fair. Sodium level 126. Receiving IV Lasix and albumin this morning. Vital signs are stable. General: No acute distress. HEENT: On nasal cannula. LUNGS: Scattered rhonchi. HEART: Rate and Rhythm are regular. ABDOMEN: Nontender. EXTREMITITES: No edema. Objective - Vital Signs Vital signs: Vital Signs Temp 98.6 F 05/06/24 08:00 Pulse 105 H 05/06/24 11:00 Resp 22 05/06/24 11:00 BP 78/61 05/05/24 19:30 Pulse Ox 94 L 05/06/24 11:00 FiO2 50 05/03/24 20:00 Intake & Output 05/05/24 05/06/24 05/06/24 18:59 06:59 18:59 Intake Total 1154.443 642 8052 Output Total 670 400 420 Balance 484.117 8 716 Weight 58.1 kg Intake: IV 609 408 346 0.9 PRESSURE BAG 99 108 36 Albumin Human 25% 50 ml 50 In Empty Bag 1 bag @ 50 mls/hr IVPB ONCE ONE Rx#: [id number] CO/CI 100 80 80 Sodium Chloride 0.9% 1, 310 220 80 000 ml @ 30 mls/hr IV . Q24H [facility] Rx#:[id number] Sodium Ferric Gluconat- 100 100 Sucrose 125 mg In Sodium Chloride 0.9% 100 ml @ 100 mls/hr IVPB DAILY [facility] Rx#:[id number] Intake, IV Titration 5.117 Amount Insulin Regular 100 unit 5.117 In Sodium Chloride 0.9% 100 ml @ Per Protocol IV .Q0M [facility] Rx#:[id number] Oral 540 Blood Product 790 Output: Chest Tube Drainage 30 40 Chest Tube Mediastinal 30 40 Urine 640 360 420 Other: Voiding Method Indwelling Catheter Indwelling Catheter ABP, PAP, CO, CI - Last Documented Arterial Blood Pressure 92/57 Pulmonary Artery Pressure 35/20 Cardiac Output 3.5 Cardiac Index 2.4 - Labs CBC & Chem 7: 05/06/24 05:00 05/06/24 05:00 Labs: Abnormal Lab Results - Last 24 Hours (Table) 05/05/24 05/05/24 05/05/24 Range/Units 16:28 21:09 22:19 WBC (3.8-10.6) k/uL RBC (3.80-5.40) m/uL Hgb (11.4-16.0) gm/dL Hct (34.0-46.0) % Plt Count (150-450) k/uL Neutrophils # (1.3-7.7) k/uL ABG pO2 <30 L* (83-108) mmHg ABG Total CO2 26 H (19-24) mmol/L ABG O2 Saturation 39.6 L (94-97) % Hemoglobin 9.5 L (11.4-16.0) gm/dL Sodium (137-145) mmol/L Carbon Dioxide (22-30) mmol/L BUN (7-17) mg/dL Glucose (74-99) mg/dL POC Glucose (mg/dL) 133 H 147 H (70-110) mg/dL AST (14-36) U/L Total Protein (6.3-8.2) g/dL Albumin (3.5-5.0) g/dL 05/06/24 05/06/24 05/06/24 Range/Units 05:00 05:00 08:27 WBC 14.1 H (3.8-10.6) k/uL RBC 3.08 L (3.80-5.40) m/uL Hgb 9.3 L (11.4-16.0) gm/dL Hct 29.6 L (34.0-46.0) % Plt Count 75 L (150-450) k/uL Neutrophils # 11.7 H (1.3-7.7) k/uL ABG pO2 <30 L* (83-108) mmHg ABG Total CO2 25 H (19-24) mmol/L ABG O2 Saturation 40.8 L (94-97) % Hemoglobin 9.3 L (11.4-16.0) gm/dL Sodium 126 L (137-145) mmol/L Carbon Dioxide 21 L (22-30) mmol/L BUN 29 H (7-17) mg/dL Glucose 121 H (74-99) mg/dL POC Glucose (mg/dL) (70-110) mg/dL AST 38 H (14-36) U/L Total Protein 4.9 L (6.3-8.2) g/dL Albumin 2.8 L (3.5-5.0) g/dL 03/13/25 Range/Units 11:05 WBC (3.8-10.6) k/uL RBC (3.80-5.40) m/uL Hgb (11.4-16.0) gm/dL Hct (34.0-46.0) % Plt Count (150-450) k/uL Neutrophils # (1.3-7.7) k/uL ABG pO2 (83-108) mmHg ABG Total CO2 (19-24) mmol/L ABG O2 Saturation (94-97) % Hemoglobin (11.4-16.0) gm/dL Sodium (137-145) mmol/L Carbon Dioxide (22-30) mmol/L BUN (7-17) mg/dL Glucose (74-99) mg/dL POC Glucose (mg/dL) 148 H (70-110) mg/dL AST (14-36) U/L Total Protein (6.3-8.2) g/dL Albumin (3.5-5.0) g/dL Assessment and Plan Plan: Assessment: 1. Chronic kidney disease stage IIIa with baseline creatinine 1-1.3 secondary to nephrosclerosis. GFR at baseline. 2. Status post aortic valve replacement and mitral valve repair May 03, 2024. On Primacor. 3. Mild hyperkalemia secondary to underlying CKD and use of KHADIJAH inhibitor. Resolved. 4. Anemia. Iron deficiency noted. 5. Volume overload. 6. Hypervolemic hyponatremia. Plan: Status post Lasix 40 mg IV as well as IV albumin this morning. Maintain fluid restriction. Check urine studies and TSH. Maintain IV iron. Avoid nephrotoxins. Continue to monitor renal function and urine output. Avoid magnesium containing laxatives as magnesium level is high. If no improvement in sodium level tomorrow, will consider Samsca.
[2024-05-06] MEDS: DEXTROSE 5% IN WATER 100 ML with AMIODARONE 150 MG IV PRN (11:28)
--- NOTE | 2024-05-06 12:53 | PN ---
PROGRESS NOTE SUBJECTIVE: A 79-year-old lady, who underwent aortic valve replacement, mitral valve repair, and left atrial appendage occlusion. She is in a paced rhythm. Blood pressure is about 92/57, is on amiodarone 200 mg daily, aspirin, started on hydralazine 50 b.i.d., on midodrine 5 mg t.i.d. PHYSICAL EXAMINATION: CHEST: Reveals diminished air entry at the bases. HEART: Reveals first and second heart sounds. No gallop. ABDOMEN: Soft. EXTREMITIES: Examination of extremities did not reveal any edema. Peripheral pulses are palpable. ASSESSMENT: 1. Aortic regurgitation, status post aortic valve replacement. 2. Mitral regurgitation, status post mitral valve repair. 3. Hypotension. 4. History of atrial fibrillation. PLAN: The patient is started on hydralazine per CT Surgery. She is also on midodrine and Primacor. MMODL / IJN: [id number] /
[2024-05-06] MEDS: METOPROLOL TARTRATE 12.5 MG TAB PO STA (13:46)
[2024-05-06 16:09] LABS: Glucose,Whole Blood 147 mg/dL (70-110)
[2024-05-06] MEDS: AMIODARONE 360 MG in DEXTROSE 5% IN WATER 200 ML IV ONE (16:21)
--- NOTE | 2024-05-06 18:45 | P.PN ---
Subjective Progress Note Date: 05/06/24 This is a 79-year-old female patient being seen in the intensive care unit postop as the patient had severe aortic valve regurgitation with mitral valve regurgitation and mild pulmonary hypertension and moderate LV dysfunction and the patient was taken to the operating room and underwent aortic valve rep lacement and mitral valve repair. The patient is also noted to have paroxysmal A-fib and has a pacemaker in place along with history of chronic kidney disease and previous history of embolic stroke with full recovery. The patient was brought into the intensive care and intubated on the mechanical ventilator. The patient was sedated with propofol. The patient is on the mechanical ventilator, assist-control mode rate of 12, tidal volume of 400, FiO2 of 100% with a PEEP of 5. Initial blood gases postop in the intensive care unit showed a pH of 7.57 with a pCO2 of 27 and pO2 of 256. FiO2 was dropped down to 60% and follow-up gases showed a pH of 7. 36 with a pCO2 of 47 and pO2 of 153. The patient's PA pressures were 38/28. Cardiac index was 1.7. Patient has mediastinal x2.. Chest x-ray showed adequate expansion of both lungs. No evidence of any pneumothorax. The patient has a right IJ Birmingham-Kip catheter in place. The patient is atrially paced at rate of 80. The patient is currently on low-dose norepinephrine and milrinone which is running at 0.2 mcg/kg/min. Urine output is adequate. Initial blood work showed a white cell count of 8 with a hemoglobin 9.1 and a platelet count of 66. The sodium is at 141, potassium is at 4.4, chloride is 109 with a bicarb of 25 BUN of 18 with a creatinine of 0.7. IV fluids are normal saline at rate of 50 cc an hour. No other significant events postop. On 05/04/2024, patient is being seen for a follow-up. The patient is post aortic valve replacement and mitral valve repair and the patient is postop day #2. The patient was weaned off the mechanical ventilator and the patient was extubated any major difficulties and the patient is currently on 2 L of oxygen by nasal cannula. Hemodynamically, the patient is still requiring inotropes and the patient is currently on Primacor which is running at 0.125 mcg/kg/min and the pa tient is off norepinephrine. Cardiac index today is at 2.3. PA pressures are 31/11. The patient remains atrially paced at a rate of 80. Urine output is noted of 30 cc an hour. Remains on amiodarone and the patient will be switched from amiodarone drip to oral amiodarone. Using incentive spirometer, pulling approximately thousand. Chest x-ray from this morning was noted and the patient has cardiomegaly and pulm vascular congestion and small bilateral pleural effusions. Mediastinal chest tubes are still in place and output is minimal at this point in time. The patient is calm and comfortable. Denies having any specific complaints. Remains on insulin drip which is running at 1 unit an hour for adequate blood sugar control. On 05/05/2024, the patient is being seen for a follow-up. The patient is currently on her intrinsic pacemaker and she is pacing at rate of 60. Her cardiac output and index are being monitored. Earlier this morning, the cardiac index was a 2.2. The patient remains on milrinone 0.125 mcg/kg/min. Urine output is adequate. Output from the chest tubes are minimal. Using incentive spirometer. She remains on 2 L of oxygen by nasal cannula. Chest x-ray from today shows small bilateral pleural effusions and cardiomegaly. Blood work from today shows a white cell count of 12.4, hemoglobin of 9.4 and platelet count of 73. BUN is 20 with a creatinine of 0.7 and sodium is at 130. The patient was started on metoprolol 12.5 mg p.o. twice a day. She is centimeter on 12 mg p.o. daily. She remains on aspirin. Rest of the medications remain unchanged. Midodrine was also added 5 mg p.o. 3 times daily. She is also on losartan 12.5 mg p.o. daily. She is currently postop day #2 following a aortic valve replacement and mitral valve repair. On today's evaluation 05/06/2024, the patient is being seen for a follow-up. The patient remains on 2 L of oxygen by nasal cannula. Chest x-ray findings remain unchanged the patient continues to have some small bilateral pleural effusions. The patient utilizing her intrinsic pacemaker. Urine output is in order of 30 to 40 cc an hour. She remains on milrinone at 0.25 mcg/kg/h and a cardiac index of 2.2. The patient is still inotrope dependent as the patient's cardiac output is dropping while the milrinone is being weaned. Meanwhile, the patient was given Lasix 40 mg IV push x 1. Awake and alert and communicating. No focal neurological deficits. Chest tubes have been removed. The white cell count of 14.1, hemoglobin is at 9.3 and a platelet count of 75. Sodium is at 126, BUN is 29 with a creatinine of 0.9. Potassium level is at 4.9. The patient is currently on amiodarone 200 mg p.o. daily. The patient is also on metoprolol which is currently on hold. Midodrine at 5 mg p.o. 3 times daily. Aspirin and Plavix. Hydralazine 50 mg p.o. twice daily. Oxycodone for pain control. The patient is postop day #3 following awaiting placement and mitral valve repair. Objective - Vital Signs Vital signs: Vital Signs Temp 98.6 F 05/06/24 08:00 Pulse 79 05/06/24 09:15 Resp 17 05/06/24 09:15 BP 78/61 05/05/24 19:30 Pulse Ox 96 05/06/24 09:15 FiO2 50 05/03/24 20:00 Intake & Output 05/05/24 05/06/24 05/06/24 18:59 06:59 18:59 Intake Total 1154.117 408 Output Total 670 400 Balance 484.117 8 Weight 58.1 kg Intake: IV 609 408 0.9 PRESSURE BAG 99 108 CO/CI 100 80 Sodium Chloride 0.9% 1, 310 220 000 ml @ 30 mls/hr IV . Q24H [facility] Rx#:[id number] Sodium Ferric Gluconat- 100 Sucrose 125 mg In Sodium Chloride 0.9% 100 ml @ 100 mls/hr IVPB DAILY [facility] Rx#:[id number] Intake, IV Titration 5.117 Amount Insulin Regular 100 unit 5.117 In Sodium Chloride 0.9% 100 ml @ Per Protocol IV .Q0M [facility] Rx#:[id number] Oral 540 Output: Chest Tube Drainage 30 40 Chest Tube Mediastinal 30 40 Urine 640 360 Other: Voiding Method Indwelling Catheter Indwelling Catheter ABP, PAP, CO, CI - Last Documented Arterial Blood Pressure 95/50 Pulmonary Artery Pressure 33/17 Cardiac Output 2.6 Cardiac Index 1.8 - Exam CONSTITUTIONAL: Appears comfortable, cooperative, no acute distress RESPIRATORY: Lungs sounds diminished in the bases bilaterally. Respirations even, nonlabored. Currently on 2 L nasal cannula with oxygen saturation 94%. Able to achieve 750 mL on incentive spirometry. Strong cough. CARDIOVASCULAR: S1, S2 present. Regular rate and rhythm, sinus rhythm on telemetry. Sternum stable. Palpable peripheral pulses bilaterally. Trace bilateral upper extremity edema present. No calf pain or tenderness noted. Heart hugger in place with patient demonstrating appropriate use. Antiembolism stockings, SCDs present. GASTROINTESTINAL: Abdomen soft, nontender, nondistended. Active bowel sounds present 4 quadrants. Tolerating diet. Positive flatus GENITOURINARY: Palacios present draining clear, yellow urine. Output overnight 20-50 mL per hour, 970 mL in the last 24 hours INTEGUMENTARY: Skin is warm and dry with evidence of good perfusion. Anterior chest incision well approximated and covered with dry intact dressing NEUROLOGIC: Cranial nerves II through XII intact MUSKULOSKELETAL: Able to move all extremities, strength equal bilaterally, gait normal PSYCHIATRIC: Alert and oriented to person place and time, appropriate affect, intact judgment and insight INVASIVE LINES AND TUBES: Mediastinal chest tube present and connected to wall suction, no air leaks present, no drainage overnight, 50 mL in the last 24 hours. Atrial epicardial pacemaker wires present, connected to generator, generator off. Right internal jugular Birmingham/Cordis, right radial arterial line present. Last CO/CI 2.6/1.8, PA 32/15, CVP 11. - Labs CBC & Chem 7: 05/06/24 05:00 05/06/24 05:00 Labs: Abnormal Lab Results - Last 24 Hours (Table) 05/05/24 05/05/24 05/05/24 Range/Units 10:53 16:28 21:09 WBC (3.8-10.6) k/uL RBC (3.80-5.40) m/uL Hgb (11.4-16.0) gm/dL Hct (34.0-46.0) % Plt Count (150-450) k/uL Neutrophils # (1.3-7.7) k/uL ABG pO2 (83-108) mmHg ABG Total CO2 (19-24) mmol/L ABG O2 Saturation (94-97) % Hemoglobin (11.4-16.0) gm/dL Sodium (137-145) mmol/L Carbon Dioxide (22-30) mmol/L BUN (7-17) mg/dL Glucose (74-99) mg/dL POC Glucose (mg/dL) 118 H 133 H 147 H (70-110) mg/dL AST (14-36) U/L Total Protein (6.3-8.2) g/dL Albumin (3.5-5.0) g/dL 05/05/24 05/06/24 05/06/24 Range/Units 22:19 05:00 05:00 WBC 14.1 H (3.8-10.6) k/uL RBC 3.08 L (3.80-5.40) m/uL Hgb 9.3 L (11.4-16.0) gm/dL Hct 29.6 L (34.0-46.0) % Plt Count 75 L (150-450) k/uL Neutrophils # 11.7 H (1.3-7.7) k/uL ABG pO2 <30 L* (83-108) mmHg ABG Total CO2 26 H (19-24) mmol/L ABG O2 Saturation 39.6 L (94-97) % Hemoglobin 9.5 L (11.4-16.0) gm/dL Sodium 126 L (137-145) mmol/L Carbon Dioxide 21 L (22-30) mmol/L BUN 29 H (7-17) mg/dL Glucose 121 H (74-99) mg/dL POC Glucose (mg/dL) (70-110) mg/dL AST 38 H (14-36) U/L Total Protein 4.9 L (6.3-8.2) g/dL Albumin 2.8 L (3.5-5.0) g/dL 05/06/24 Range/Units 08:27 WBC (3.8-10.6) k/uL RBC (3.80-5.40) m/uL Hgb (11.4-16.0) gm/dL Hct (34.0-46.0) % Plt Count (150-450) k/uL Neutrophils # (1.3-7.7) k/uL ABG pO2 <30 L* (83-108) mmHg ABG Total CO2 25 H (19-24) mmol/L ABG O2 Saturation 40.8 L (94-97) % Hemoglobin 9.3 L (11.4-16.0) gm/dL Sodium (137-145) mmol/L Carbon Dioxide (22-30) mmol/L BUN (7-17) mg/dL Glucose (74-99) mg/dL POC Glucose (mg/dL) (70-110) mg/dL AST (14-36) U/L Total Protein (6.3-8.2) g/dL Albumin (3.5-5.0) g/dL Assessment and Plan Plan: Aortic valve replacement and mitral valve repair for severe aortic and and mitral valve regurgitation. The patient is currently postop day # 3. Hemodynamically the patient is still inotrope dependent and the patient continues to be on milrinone. Cardiac index from this morning is at 2.2. Maintained on milrinone and she is off Levophed. Adequate urine output. Cardi ac rhythm is is paced and the patient is utilizing her intrinsic pacemaker at rate of 60 Postthoracotomy. Mediastinal chest tube in place. Extubated to 2 L of oxygen by nasal cannula. Continues to have some pulm vessel congestion and small bilateral pleural effusion. Chest tubes have been removed. Paroxysmal atrial fibrillation, current rhythm is paced. The patient has a pacemaker. The patient is on oral amiodarone 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 Hypertension Hyperlipidemia Osteoarthritis History of nephrolithiasis/kidney stones Diverticular disease History of tachybradycardia syndrome History of macular degeneration Small hiatal hernia Anemia, acute, expected outcome of surgery Acute thrombocytopenia, expected lower, surgery Plan Continues incentive spirometer Chest tubes removed Continue milrinone titrated dose based on cardiac output and urine output Monitor cardiac output and index and keep the Birmingham-Kip catheter in place utilizing her intrinsic pacemaker and the patient is generating her own rhythm Amiodarone 200 mg p.o. daily Metoprolol is currently on hold Lasix 40 mg IV push x 1 Midodrine 5 mg p.o. 3 times daily insulin sliding scale coverage Adequate pain control with oxycodone Heparin subcu 5000 units every 8 hours and close monitoring of the white count Continue aspirin and Plavix ambulating Will continue to follow and the patient will be kept in ICU for another 24 hours. Will continue to follow, evaluation was done and 32 minutes Time with Patient: Greater than 30
--- NOTE | 2024-05-06 19:15 | P.PN ---
Progress Note - Text Progress Note Date: 05/06/24 - Chief Complaint Aortic valve replacement etc. - History of Present Illness This is a pleasant 79year-old patient, follows with Dr. Thayer. 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 Kimbrough macular degeneration. Patient yesterday underwent arctic valve replacement with a bioprosthesis, mitral valve repair with annuloplasty, exclusion of left atrial appendage using a clip,. Today patient is up in a chair. Extubated. Drips include IV insulin, milrinone, amiodarone. Plan to being switched over to p.o. Paced rhythm. Has to chest tubes mediastinal. Clear liquid diet. Doing about 1000 cc on incentive spirometry. May 05: Sitting up in a recliner. Slight shortness of breath. On IV milrinone and IV heparin drip. Paced rhythm. [address] Eating fair. Been taken off insulin drip. May 06: Saw this afternoon. Up in a recliner. Did transfer from the bed to the chair. Some shortness of breath. A-fib. Given further IV loading IV amiodarone. Remains on IV milrinone. Chest tubes are out. Palacios catheter in place. Eating fair. Sodium a bit worse. Received IV Lasix and albumin. Active Medications Acetaminophen (Acetaminophen Tab 325 Mg Tab) 650 mg PO Q4HR PRN PRN Reason: Fever And/ Or Mild Pain (1-3) Last Admin: 05/06/24 06:19 Dose: 650 mg Albuterol/Ipratropium (Ipratropium-Albuterol 3 Ml Neb) 3 ml INHALATION RT-Q2H PRN PRN Reason: Shortness Of Breath Or Wheezing Albuterol/Ipratropium (Ipratropium-Albuterol 3 Ml Neb) 3 ml INHALATION RT-QID [facility] Last Admin: 05/06/24 18:44 Dose: 3 ml Amiodarone HCl (Amiodarone 200 Mg Tab) 200 mg PO DAILY [facility] Last Admin: 05/06/24 09:09 Dose: 200 mg Ascorbic Acid (Ascorbic Acid 500 Mg Tab) 500 mg PO DAILY [facility] Last Admin: 05/06/24 09:08 Dose: 500 mg Aspirin (Aspirin 81 Mg) 81 mg PO DAILY [facility] Last Admin: 05/06/24 09:09 Dose: 81 mg Benzocaine/Menthol (Benzocaine/Menthol Lozeng 1 Each Lozenge) 1 each MUCOUS MEM Q2H PRN PRN Reason: Sore Throat Last Admin: 05/05/24 04:21 Dose: 1 each Bisacodyl (Bisacodyl 10 Mg Supp) 10 mg RECTAL DAILY PRN PRN Reason: Constipation Cholecalciferol (Cholecalciferol 25 Mcg (1000 Iu) Tablet) 75 mcg PO DAILY [facility] Last Admin: 05/06/24 09:10 Dose: 75 mcg Clopidogrel Bisulfate (Clopidogrel 75 Mg Tab) 75 mg PO DAILY [facility] Last Admin: 05/06/24 09:09 Dose: 75 mg Dextrose/Water (Dextrose 50% Syringe 50 Ml) 25 ml IVP PER PROTOCOL PRN; Protocol PRN Reason: Hypoglycemia Dextrose/Water (Dextrose 50% Syringe 50 Ml) 50 ml IVP PER PROTOCOL PRN; Protocol PRN Reason: Hypoglycemia Last Admin: 05/03/24 14:31 Dose: 50 ml Heparin Sodium (Porcine) (Heparin Sodium,Porcine 5,000 Unit/Ml 1 Ml Vial) 5,000 unit SQ Q8HR [facility] Last Admin: 05/06/24 16:31 Dose: 5,000 unit Hydralazine HCl (Hydralazine Hcl 50 Mg Tab) 50 mg PO BID [facility] Last Admin: 05/06/24 09:08 Dose: 50 mg Amiodarone HCl 150 mg/ (Dextrose/Water) 103 mls @ 618 mls/hr IV .Q10M PRN PRN Reason: A.FIB/FLUTTER Last Admin: 05/06/24 14:41 Dose: 618 mls/hr Calcium Gluconate/Sodium (Chloride 2 gm/ IV Solution) 100 mls @ 100 mls/hr IVPB ONCE PRN PRN Reason: Ionized Calcium less than 4.4 Stop: 06/02/24 13:59 Sodium Chloride (Saline 0.9%) 1,000 mls @ 30 mls/hr IV .Q24H [facility] Last Admin: 05/06/24 11:36 Dose: 30 mls/hr Ferric Sodium Gluconate 125 mg (/ Sodium Chloride) 110 mls @ 100 mls/hr IVPB DAILY [facility] Stop: 05/08/24 10:14 Last Admin: 05/06/24 09:07 Dose: 100 mls/hr Milrinone Lactate/Dextrose 20 (mg/ IV Solution) 100 mls @ 4.26 mls/hr IV .[id number] [facility] Last Admin: 05/06/24 00:48 Dose: 0.25 mcg/kg/min, 4.26 mls/hr Amiodarone HCl 360 mg/ (Dextrose/Water) 200 mls @ 33.333 mls/hr IV .Q6H ONE; Protocol Stop: 05/06/24 21:54 Last Admin: 05/06/24 16:21 Dose: 1 mg/min, 33.333 mls/hr Amiodarone HCl 450 mg/ (Dextrose/Water) 250 mls @ 16.667 mls/hr IV .Q15H [facility]; Protocol Stop: 05/07/24 15:59 Insulin Human Lispro (Insulin Lispro (Humalog) 100 Unit/Ml 10 Ml Vl) 0 unit SQ ACHS [facility]; Protocol Last Admin: 05/06/24 16:22 Dose: Not Given Lactobacillus Acidophilus (Lactobacillus Acidophilus/Pect 1 Each Capsule) 1 each PO BID [facility] Last Admin: 05/06/24 09:10 Dose: 1 each Metoclopramide HCl (Metoclopramide 5 Mg/Ml 2 Ml Vial) 10 mg IVP Q4H PRN PRN Reason: Nausea And Vomiting Last Admin: 05/04/24 21:12 Dose: 10 mg Metoprolol Tartrate (Metoprolol Tartrate 12.5 Mg Tab) 12.5 mg PO BID [facility] Last Admin: 05/05/24 20:51 Dose: 12.5 mg Midodrine (Midodrine 5 Mg Tab) 5 mg PO AC-TID [facility] Last Admin: 05/06/24 16:31 Dose: 5 mg Miscellaneous Information (Potassium Replacement Protocol 1 Each Misc) 1 each MISCELLANE DAILY PRN; Protocol PRN Reason: Per Protocol Miscellaneous Information (Magnesium Replacement Protocol 1 Each Misc) 1 each MISCELLANE DAILY PRN; Protocol PRN Reason: Per Protocol Miscellaneous Information ( Communication To Pharmacy & Rn) 1 each PO ONCE PRN PRN Reason: See Comments Stop: 05/06/24 23:59 Multivitamins/Minerals (Vit A,C & S-Ygpmja-Wivwohrf 1 Each Tab) 1 each PO BID [facility] Last Admin: 05/06/24 09:10 Dose: 1 each Ondansetron HCl (Ondansetron 4 Mg/2 Ml Vial) 4 mg IVP Q6HR PRN PRN Reason: Nausea And Vomiting Last Admin: 05/06/24 17:01 Dose: 4 mg Oxycodone HCl (Oxycodone Hcl 5 Mg Tab) 5 mg PO Q4HR PRN PRN Reason: Moderate Pain (Scale 4 to 6) Oxycodone HCl (Oxycodone Hcl 5 Mg Tab) 10 mg PO Q4HR PRN PRN Reason: Severe Pain (Scale 7 to 10) Pantoprazole Sodium (Pantoprazole 40 Mg Tablet) 40 mg PO AC-BRKFST [facility] Last Admin: 05/06/24 06:52 Dose: 40 mg Senna/Docusate Sodium (Sennosides-Docusate Sodium 1 Each Tab) 2 each PO HS [facility] Last Admin: 05/05/24 20:51 Dose: 2 each Sodium Chloride (Sodium Chloride 0.9% Flush 10 Ml Syringe) 10 ml IV BID [facility] Last Admin: 05/06/24 09:08 Dose: 10 ml Social history: Lives alone. Denies any alcohol or smoking history. Physical examination: VITAL SIGNS: 98.4, 100, 17, 98 x 63, 95% on 6 L GENERAL: BMI 21.1, up in a recliner EYES: Pupils equal. Conjunctiva clifford l. HEENT: External appearance of nose and ears normal, oral cavity grossly normal. Decreased hearing NECK: JVD unable to assess; masses not palpable. HEART: Heart sounds irregular; no edema. LUNGS: Respiratory rate increased; i diminished breath sounds. Chest tubes removed ABDOMEN: Soft, nontender, liver spleen not palpable, no masses palpable. PSYCH: Alert and oriented x3; mood and affect clifford l. MUSCULOSKELETAL:No Clubbing/cyanosis;muscles-grossly intact. OA INVESTIGATIONS, reviewed in the clinical context: May 06: White count 14.1 hemoglobin 9.3 platelets 95 sodium 126 potassium 4.9 BUN 29 creatinine 0.90 May 05: White count 12.4 hemoglobin 9.4 platelets 93 potassium 4.6 creatinine 0.74 May 04, 2024: White count 8.7 hemoglobin 9.5 platelets 64 sodium 137 potassium 5.6 BUN 19 creatinine 0.87 magnesium 2.5 iron 16 TIBC 154% saturation 10.3 transferrin 110 ferritin 176 Chest x-ray film personally reviewed by me-some venous prominence. Pacemaker Previous April 27, 2024: Hemoglobin 14.5 platelets 210 2D echocardiogram [April 29, 2023] EF 40%. Moderate MR. Severe TR. Severe pulmonary hypertension. Severe AR. Cardiac catheterization [April 2022] mild nonobstructive CAD Assessment plan: -aorctic valve replacement with a bioprosthesis, mitral valve repair with annuloplasty, exclusion of left atrial appendage using a clip, on May 03, [address] Hammond [Prior moderate mitral regurgitation, severe tricuspid regurgitation, severe aortic regurgitation] Patient currently has 2 chest tubes [mediastinum] in place -History of atrial fibrillation. Currently paced rhythm. Lopressor. Cordarone -Acute postprocedure blood loss anemia expected from surgery Follow H&H -Dilutional thrombocytopenia. Preoperative platelets 210 Follow closely -Hyperkalemia: Corrected Calcium gluconate, insulin given. -Hyponatremia likely hypervolemic, worsening Follow fluid status closely. Encourage oral intake. -Hypoalbuminemia, multifactorial: Some worsening Given IV albumin -Hard of hearing - chronic congestive heart failure exacerbation from systolic dysfunction nonischemic cardiomyopathy EF 40%, Follow fluid status -Severe secondary pulmonary hypertension -Hypotension On IV milrinone -Essential hypertension Lopressor-on hold. Hydralazine -Primary osteoarthritis Tylenol as needed -Colonic diverticulosis, asymptomatic -Chronic kidney disease stage IIIa, baseline creatinine from 1 2-1.3, secondary nephrosclerosis Follows with Dr. Kimbrough outpatient -Pacemaker 2017 -Full code IV Lasix. Albumin. Activity as tolerated. Thank you Dr. Hammond Past Medical History Past Medical History: Atrial Fibrillation, Heart Failure, CVA/TIA, Eye Disorder, Hearing Disorder / Deafness, Hyperlipidemia, Hypertension, Osteoarthritis (OA), Renal Disease, Skin Disorder Additional Past Medical History / Comment(s): SOB in the evening and through the night has improved with med changes. Tinnitus, bilateral hearing aid use. Diverticular disease, hemorrhoids. Hx kidney stones. hx Anemia. 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 Stage 3 kidney disease. Macular degeneration left eye. Small hiatal hernia. Reddness to cheeks, at times feels tingling. watching shadow by liver. History of Any Multi-Drug Resistant Organisms: None Reported Past Surgical History: Adenoidectomy, Appendectomy, Section, Heart Catheterization, Pacemaker, Tonsillectomy Additional Past Surgical History / Comment(s): SINUS SURGERY, section X3, CHRISTY, colonoscopy. Past Anesthesia/Blood Transfusion Reactions: No Reported Reaction Additional Past Anesthesia/Blood Transfusion Reaction / Comm: Hx blood transfusion with no issues 50 yrs ago. Type of Cardiac Device: Permanent Pacemaker Device Placement Date:: 01/2017 Left chest Smoking Status: Never smoker
[2024-05-06 20:42] LABS: Glucose,Whole Blood 161 mg/dL (70-110)
[2024-05-06] MEDS: AMIODARONE 450 MG in DEXTROSE 5% IN WATER 250 ML IV SCH (21:01)
[2024-05-07 05:35] LABS: Glucose,Whole Blood 128 mg/dL (70-110)
[2024-05-07 06:09] LABS: African American GFR (CKD) 63 (>60 ml/min/1.73 sqM); Anion Gap 9 mmol/L; Blood Urea Nitrogen 33 mg/dL (7-17); Calcium 8.3 mg/dL (8.4-10.2); Carbon Dioxide 21 mmol/L (22-30); Chloride 96 mmol/L (98-107); Glucose 115 mg/dL (74-99); Non-African American GFR(CKD) 55 (>60 ml/min/1.73 sqM); Potassium 4.4 mmol/L (3.5-5.1); Sodium 126 mmol/L (137-145)
[2024-05-07 06:50] LABS: HCT 27.9 % (34.0-46.0); HGB 9.2 gm/dL (11.4-16.0); MCH 31.5 pg (25.0-35.0); MCV 95.5 fL (80.0-100.0); Platelet Count 105 k/uL (150-450); RBC 2.92 m/uL (3.80-5.40); RDW 14.9 % (11.5-15.5)
--- NOTE | 2024-05-07 06:58 | XR ---
EXAMINATION TYPE: XR chest 1V DATE OF EXAM: 05/07/2024 CLINICAL INDICATION: Female, 79 years old with history of chest tube follow up, progress study. TECHNIQUE: Single AP portable upright view of the chest is obtained. COMPARISON: Chest x-ray from one day earlier FINDINGS: Stable right internal jugular [place]-Kip catheter. Interval removal of mediastinal drainage catheter. Overlying sternal wires along with metallic aortic valve and left atrial appendage clip are all redem onstrated. Persistent cardiomegaly with central vascular congestion and small bilateral pleural effusions and wi th bibasilar opacity favoring compressive atelectasis. Persistent dual-lead pacemaker. Osseous struct ures are intact. IMPRESSION: Persistent cardiomegaly with central vascular congestion and small bilateral pleural effu sions. Persistent bibasilar opacity favors compressive atelectasis. No significant change from one da y earlier. [facility], , 05/07/2024 6:55 AM
[2024-05-07] MEDS: TOLVAPTAN 15 MG TABLET PO ONE (08:25)
[2024-05-07 09:33] LABS: Neutrophils % (M) 83 %; Nucleated Red Blood Cells 3 /100 WBC (0-0); Total Cells Counted 200
[2024-05-07 09:34] LABS: Lymphocytes # (M) 0.95 k/uL (1.0-4.8); Monocytes # (M) 1.07 k/uL (0-1.0); Neutrophils # (M) 9.88 k/uL (1.3-7.7); WBC 11.9 k/uL (3.8-10.6)
[2024-05-07 09:37] LABS: Polychromasia Present
[2024-05-07] MEDS: FUROSEMIDE 10 MG/ML 2 ML VIAL IV ONE (09:39)
--- NOTE | 2024-05-07 09:56 | US ---
EXAMINATION TYPE: US chest DATE OF EXAM: 05/07/2024 COMPARISON: Chest x-ray earlier today CLINICAL INDICATION: Female, 79 years old with history of Wil for thoracentesis; TECHNIQUE: Grayscale imaging of the chest. Targeted ultrasound of the posterior lower FINDINGS: EXAM MEASUREMENTS: Right Pleural Effusion pocket size: 3.6 cm Right skin surface to fluid distance: 1.7 cm Left Pleural Effusion pocket size: 2.1 cm Left skin surface to fluid distance: 2.1 cm Right side marked for possible thoracentesis outside the dept. Left side not marked Pulmonologists are able to review the images in the patient?s EMR. IMPRESSIONS: Confirmation of small to moderate size right greater than left pleural effusions which c orrelates with most recent x-ray. [facility], , 05/07/2024 9:54 AM
--- NOTE | 2024-05-07 09:59 | P.PN ---
Subjective Patient is seen in follow-up for chronic kidney disease. GFR at baseline. Oral intake fair. Sodium level stable at 126. Feels tired. Vital signs are stable. General: No acute distress. HEENT: On nasal cannula. LUNGS: Scattered rhonchi. HEART: Rate and Rhythm are regular. ABDOMEN: Nontender. EXTREMITITES: 1+ edema. Objective - Vital Signs Vital signs: Vital Signs Temp 97.7 F 05/07/24 08:00 Pulse 99 05/07/24 09:30 Resp 13 05/07/24 09:30 BP 78/61 05/07/24 06:00 Pulse Ox 93 L 05/07/24 09:30 FiO2 50 05/03/24 20:00 Intake & Output 05/06/24 05/07/24 05/07/24 18:59 06:59 18:59 Intake Total 2219 757 189 Output Total 1015 415 85 Balance 1204 342 104 Weight 55.09 kg Intake: IV 729 457 189 0.9 PRESSURE BAG 99 117 9 Albumin Human 25% 50 ml 50 In Empty Bag 1 bag @ 50 mls/hr IVPB ONCE ONE Rx#: [id number] CO/CI 260 80 40 Sodium Chloride 0.9% 1, 220 260 40 000 ml @ 30 mls/hr IV . Q24H [facility] Rx#:[id number] Sodium Ferric Gluconat- 100 100 Sucrose 125 mg In Sodium Chloride 0.9% 100 ml @ 100 mls/hr IVPB DAILY [facility] Rx#:[id number] Intake, IV Titration 100 Amount Milrinone-D5w Pmx 20 mg 100 In Dextrose/Water 1 100ml .bag @ 0.125 MCG/KG/MIN 2 .13 mls/hr IV .Q24H [facility] Rx#:[id number] Oral 1490 200 Output: Urine 1015 415 85 Other: Voiding Method Indwelling Catheter Indwelling Catheter Indwelling Catheter ABP, PAP, CO, CI - Last Documented Arterial Blood Pressure 113/73 Pulmonary Artery Pressure 50/31 Cardiac Output 3.1 Cardiac Index 2.2 - Labs CBC & Chem 7: 05/07/24 05:30 05/07/24 05:30 Labs: Abnormal Lab Results - Last 24 Hours (Table) 05/06/24 05/06/24 05/06/24 Range/Units 11:05 14:49 16:07 WBC (3.8-10.6) k/uL RBC (3.80-5.40) m/uL Hgb (11.4-16.0) gm/dL Hct (34.0-46.0) % Plt Count (150-450) k/uL Neutrophils # (Manual) (1.3-7.7) k/uL Lymphocytes # (Manual) (1.0-4.8) k/uL Monocytes # (Manual) (0-1.0) k/uL Nucleated RBCs (0-0) /100 WBC Sodium (137-145) mmol/L Chloride (98-107) mmol/L Carbon Dioxide (22-30) mmol/L BUN (7-17) mg/dL Glucose (74-99) mg/dL POC Glucose (mg/dL) 148 H 147 H (70-110) mg/dL Calcium (8.4-10.2) mg/dL Ur Random Sodium <20 L (40-220) mmol/L 05/06/24 05/07/24 05/07/24 Range/Units 20:33 05:30 05:30 WBC 11.9 H (3.8-10.6) k/uL RBC 2.92 L (3.80-5.40) m/uL Hgb 9.2 L (11.4-16.0) gm/dL Hct 27.9 L (34.0-46.0) % Plt Count 105 L (150-450) k/uL Neutrophils # (Manual) 9.88 H (1.3-7.7) k/uL Lymphocytes # (Manual) 0.95 L (1.0-4.8) k/uL Monocytes # (Manual) 1.07 H (0-1.0) k/uL Nucleated RBCs 3 H (0-0) /100 WBC Sodium 126 L (137-145) mmol/L Chloride 96 L (98-107) mmol/L Carbon Dioxide 21 L (22-30) mmol/L BUN 33 H (7-17) mg/dL Glucose 115 H (74-99) mg/dL POC Glucose (mg/dL) 161 H (70-110) mg/dL Calcium 8.3 L (8.4-10.2) mg/dL Ur Random Sodium (40-220) mmol/L 05/07/24 Range/Units 05:33 WBC (3.8-10.6) k/uL RBC (3.80-5.40) m/uL Hgb (11.4-16.0) gm/dL Hct (34.0-46.0) % Plt Count (150-450) k/uL Neutrophils # (Manual) (1.3-7.7) k/uL Lymphocytes # (Manual) (1.0-4.8) k/uL Monocytes # (Manual) (0-1.0) k/uL Nucleated RBCs (0-0) /100 WBC Sodium (137-145) mmol/L Chloride (98-107) mmol/L Carbon Dioxide (22-30) mmol/L BUN (7-17) mg/dL Glucose (74-99) mg/dL POC Glucose (mg/dL) 128 H (70-110) mg/dL Calcium (8.4-10.2) mg/dL Ur Random Sodium (40-220) mmol/L Assessment and Plan Plan: Assessment: 1. Chronic kidney disease stage IIIa with baseline creatinine 1-1.3 secondary to nephrosclerosis. GFR at baseline. 2. Status post aortic valve replacement and mitral valve repair May 03, 2024. On Primacor. 3. Mild hyperkalemia secondary to underlying CKD and use of KHADIJAH inhibitor. Resolved. 4. Anemia. Iron deficiency noted. 5. Volume overload. 6. Hypervolemic hyponatremia. Urine sodium less than 20 and urine osmolality 418. TSH normal. Plan: Samsca 7.5 mg once today. Lasix 20 mg IV once today. Maintain fluid restriction. Encouraged oral intake. Maintain IV iron. Avoid nephrotoxins. Continue to monitor renal function and urine output.
--- NOTE | 2024-05-07 10:29 | P.PN ---
Subjective Progress Note Date: 05/07/24 Principal diagnosis: Severe aortic valve regurgitation, moderate mitral valve regurgitation, mild to moderate tricuspid valve regurgitation, and mild pulmonary hypertension. Previo us medical history of moderate left ventricular dysfunction, chronic heart failure with reduced ejection fraction, hypertension, chronic kidney disease stage III, iron deficiency anemia, paroxysmal atrial fibrillation with cardioversion in 2023 on Eliquis for anticoagulation status post permanent dual- chamber pacemaker, embolic stroke with full recovery, hard of hearing, osteoarthritis, mild lung disease, COVID in 2021, and lifelong non-smoker. POD #4 aortic valve replacement using a 19 mm Inspiris pericardial bioprosthesis, mitral valve repair using a posterior annuloplasty band 26 mm annuloflex, exclusion of the left atrial appendage using a 35mm AtriClip, and transesophageal echocardiogram and epiaortic scanning. Postoperative blood loss anemia and thrombocytopenia, expected given car diopulmonary bypass and hemodilution Hypervolemic hyponatremia The patient was seen and examined sitting up in recliner in the intensive care unit in no acute distress. She denies significant pain, denies shortness of breath. She has been ambulatory in the hallway with nursing staff. Currently in atrial fibrillation, blood pressure remains borderline, CO/CI low with elevated SVR, remains on Primacor. Patient was given IV Lasix yesterday with good diuresis, continues on hydralazine for afterload reduction. Remains on 2 L nasal cannula with oxygen saturation in the mid 80s, poor incentive spirometry effort. Patient's pacemaker rate increased to [address] Niño. Right internal jugular [place]/Cordis, left brachial arterial line remains. Chest x-ray, lab work reviewed with Dr. Hammond. No other new concerns. Objective - Vital Signs Vital signs: Vital Signs Temp 97.7 F 05/07/24 08:00 Pulse 99 05/07/24 09:30 Resp 13 05/07/24 09:30 BP 78/61 05/07/24 06:00 Pulse Ox 93 L 05/07/24 09:30 FiO2 50 05/03/24 20:00 Intake & Output 05/06/24 05/07/24 05/07/24 18:59 06:59 18:59 Intake Total 2219 757 189 Output Total 1015 415 85 Balance 1204 342 104 Weight 55.09 kg Intake: IV 729 457 189 0.9 PRESSURE BAG 99 117 9 Albumin Human 25% 50 ml 50 In Empty Bag 1 bag @ 50 mls/hr IVPB ONCE ONE Rx#: [id number] CO/CI 260 80 40 Sodium Chloride 0.9% 1, 220 260 40 000 ml @ 30 mls/hr IV . Q24H [facility] Rx#:[id number] Sodium Ferric Gluconat- 100 100 Sucrose 125 mg In Sodium Chloride 0.9% 100 ml @ 100 mls/hr IVPB DAILY [facility] Rx#:[id number] Intake, IV Titration 100 Amount Milrinone-D5w Pmx 20 mg 100 In Dextrose/Water 1 100ml .bag @ 0.125 MCG/KG/MIN 2 .13 mls/hr IV .Q24H [facility] Rx#:[id number] Oral 1490 200 Output: Urine 1015 415 85 Other: Voiding Method Indwelling Catheter Indwelling Catheter Indwelling Catheter ABP, PAP, CO, CI - Last Documented Arterial Blood Pressure 113/73 Pulmonary Artery Pressure 50/31 Cardiac Output 3.1 Cardiac Index 2.2 - Exam CONSTITUTIONAL: Appears comfortable, cooperative, no acute distress RESPIRATORY: Lungs sounds diminished in the bases bilaterally. Respirations even, nonlabored. Currently on 2 L nasal cannula with oxygen saturation 95%. Able to achieve 500-750 mL on incentive spirometry. Strong cough. CARDIOVASCULAR: S1, S2 present. Irregular rate and rhythm, atrial fibrillation on telemetry. Sternum stable. Palpable peripheral pulses bilaterally. Trace bilateral upper extremity edema present. No calf pain or tenderness noted. Heart hugger in place with patient demonstrating appropriate use. Antiembolism stockings, SCDs present. GASTROINTESTINAL: Abdomen soft, nontender, nondistended. Active bowel sounds present 4 quadrants. Tolerating diet. Positive flatus GENITOURINARY: Palacios present draining clear, yellow urine. Output overnight 20-45 mL per hour, 1430 mL in the last 24 hours INTEGUMENTARY: Skin is warm and dry with evidence of good perfusion. Anterior chest incision well approximated and covered with dry intact dressing NEUROLOGIC: Cranial nerves II through XII intact MUSKULOSKELETAL: Able to move all extremities, strength equal bilaterally, gait normal PSYCHIATRIC: Alert and oriented to person place and time, appropriate affect, intact judgment and insight INVASIVE LINES AND TUBES: Atrial epicardial pacemaker wires present, connected to generator, generator off. Right internal jugular [place]/Cordis, right radial arterial line present. Last CO/CI 2.6/1.8, SVR 1936, PA 44/255, CVP 18. - Allied health notes Allied health notes reviewed: nursing - Labs CBC & Chem 7: 05/07/24 05:30 05/07/24 05:30 Labs: Abnormal Lab Results - Last 24 Hours (Table) 05/06/24 05/06/24 05/06/24 Range/Units 11:05 14:49 16:07 WBC (3.8-10.6) k/uL RBC (3.80-5.40) m/uL Hgb (11.4-16.0) gm/dL Hct (34.0-46.0) % Plt Count (150-450) k/uL Neutrophils # (Manual) (1.3-7.7) k/uL Lymphocytes # (Manual) (1.0-4.8) k/uL Monocytes # (Manual) (0-1.0) k/uL Nucleated RBCs (0-0) /100 WBC Sodium (137-145) mmol/L Chloride (98-107) mmol/L Carbon Dioxide (22-30) mmol/L BUN (7-17) mg/dL Glucose (74-99) mg/dL POC Glucose (mg/dL) 148 H 147 H (70-110) mg/dL Calcium (8.4-10.2) mg/dL Ur Random Sodium <20 L (40-220) mmol/L 05/06/24 05/07/24 05/07/24 Range/Units 20:33 05:30 05:30 WBC 11.9 H (3.8-10.6) k/uL RBC 2.92 L (3.80-5.40) m/uL Hgb 9.2 L (11.4-16.0) gm/dL Hct 27.9 L (34.0-46.0) % Plt Count 105 L (150-450) k/uL Neutrophils # (Manual) 9.88 H (1.3-7.7) k/uL Lymphocytes # (Manual) 0.95 L (1.0-4.8) k/uL Monocytes # (Manual) 1.07 H (0-1.0) k/uL Nucleated RBCs 3 H (0-0) /100 WBC Sodium 126 L (137-145) mmol/L Chloride 96 L (98-107) mmol/L Carbon Dioxide 21 L (22-30) mmol/L BUN 33 H (7-17) mg/dL Glucose 115 H (74-99) mg/dL POC Glucose (mg/dL) 161 H (70-110) mg/dL Calcium 8.3 L (8.4-10.2) mg/dL Ur Random Sodium (40-220) mmol/L 05/07/24 Range/Units 05:33 WBC (3.8-10.6) k/uL RBC (3.80-5.40) m/uL Hgb (11.4-16.0) gm/dL Hct (34.0-46.0) % Plt Count (150-450) k/uL Neutrophils # (Manual) (1.3-7.7) k/uL Lymphocytes # (Manual) (1.0-4.8) k/uL Monocytes # (Manual) (0-1.0) k/uL Nucleated RBCs (0-0) /100 WBC Sodium (137-145) mmol/L Chloride (98-107) mmol/L Carbon Dioxide (22-30) mmol/L BUN (7-17) mg/dL Glucose (74-99) mg/dL POC Glucose (mg/dL) 128 H (70-110) mg/dL Calcium (8.4-10.2) mg/dL Ur Random Sodium (40-220) mmol/L - Imaging and Cardiology Chest x-ray: report reviewed, image reviewed Ultrasound of the chest was completed and reviewed with Dr. Hammond Assessment and Plan Assessment: Severe aortic valve regurgitation, status post aortic valve replacement Moderate mitral valve regurgitation, status post mitral valve repair Mild to moderate tricuspid valve regurgitation Mild pulmonary hypertension Postoperative blood loss anemia and thrombocytopenia, expected given cardiopulmonary bypass and hemodilution Hypervolemic hyponatremia History of chronic heart failure with reduced ejection fraction, EF 40% Hypertension Chronic kidney disease stage III Iron deficiency anemia Paroxysmal atrial fibrillation with cardioversion in 2023 on Eliquis for anticoagulation status post permanent dual-chamber pacemaker, status post ligation of the left atrial appendage Embolic stroke with full recovery in 2016 Mild lung disease, preoperative FEV1 73% of predicted COVID in 2021 Lifelong non-smoker Plan: Continue to maximize medical therapy with low dose aspirin, Plavix and beta- pari. Will increase beta-pari therapy when tolerated Continue hydralazine for afterload reduction, increased to 50 mg BID with hold parameters yesterday Continue oral amiodarone for A-fib prophylaxis. No anticoagulation until all lines and tubes have been discontinued 1 dose tolvaptan given by nephrology No statin as the patient is sensitive to statins, no hyperlipidemia present Wean oxygen as tolerated. Encourage incentive spirometry use 10 times every hour while awake. Bronchodilators per pulmonology. Continue Primacor drip decreased today. Continue to monitor hemodynamics. Will monitor daily labs and chest x-rays, electrolyte replacement per protocol. Lasix 20 mg IV push ordered by nephrology, may repeat this afternoon Increase activity, ambulate as tolerated. PT/OT/cardiac rehab following GI/DVT prophylaxis Pain control per current medication regimen. No Toradol at this time due to the patient's chronic kidney disease. Insulin management per internal medicine, preoperative hemoglobin A1c 6.1% Continue right IJ cordis and [place]-Kip catheter. Continue to monitor hemodynamics. Continue Palacios for another 24 hours, continue to monitor record strict accurate intake and output. More recommendations to follow based on patient's clinical course.
[2024-05-07 11:08] LABS: Glucose,Whole Blood 143 mg/dL (70-110)
[2024-05-07] MEDS: FUROSEMIDE 10 MG/ML 4 ML VIAL IV ONE (14:53)
[2024-05-07] MEDS: MIDODRINE 5 MG TAB PO SCH (16:14)
[2024-05-07 16:15] LABS: Glucose,Whole Blood 141 mg/dL (70-110)
--- NOTE | 2024-05-07 16:20 | P.PN ---
Subjective Progress Note Date: 05/07/24 This is a 79-year-old female patient being seen in the intensive care unit postop as the patient had severe aortic valve regurgitation with mitral valve regurgitation and mild pulmonary hypertension and moderate LV dysfunction and the patient was taken to the operating room and underwent aortic valve rep lacement and mitral valve repair. The patient is also noted to have paroxysmal A-fib and has a pacemaker in place along with history of chronic kidney disease and previous history of embolic stroke with full recovery. The patient was brought into the intensive care and intubated on the mechanical ventilator. The patient was sedated with propofol. The patient is on the mechanical ventilator, assist-control mode rate of 12, tidal volume of 400, FiO2 of 100% with a PEEP of 5. Initial blood gases postop in the intensive care unit showed a pH of 7.57 with a pCO2 of 27 and pO2 of 256. FiO2 was dropped down to 60% and follow-up gases showed a pH of 7. 36 with a pCO2 of 47 and pO2 of 153. The patient's PA pressures were 38/28. Cardiac index was 1.7. Patient has mediastinal x2.. Chest x-ray showed adequate expansion of both lungs. No evidence of any pneumothorax. The patient has a right IJ Florence-Kip catheter in place. The patient is atrially paced at rate of 80. The patient is currently on low-dose norepinephrine and milrinone which is running at 0.2 mcg/kg/min. Urine output is adequate. Initial blood work showed a white cell count of 8 with a hemoglobin 9.1 and a platelet count of 66. The sodium is at 141, potassium is at 4.4, chloride is 109 with a bicarb of 25 BUN of 18 with a creatinine of 0.7. IV fluids are normal saline at rate of 50 cc an hour. No other significant events postop. On 05/04/2024, patient is being seen for a follow-up. The patient is post aortic valve replacement and mitral valve repair and the patient is postop day #2. The patient was weaned off the mechanical ventilator and the patient was extubated any major difficulties and the patient is currently on 2 L of oxygen by nasal cannula. Hemodynamically, the patient is still requiring inotropes and the patient is currently on Primacor which is running at 0.125 mcg/kg/min and the pa tient is off norepinephrine. Cardiac index today is at 2.3. PA pressures are 31/11. The patient remains atrially paced at a rate of 80. Urine output is noted of 30 cc an hour. Remains on amiodarone and the patient will be switched from amiodarone drip to oral amiodarone. Using incentive spirometer, pulling approximately thousand. Chest x-ray from this morning was noted and the patient has cardiomegaly and pulm vascular congestion and small bilateral pleural effusions. Mediastinal chest tubes are still in place and output is minimal at this point in time. The patient is calm and comfortable. Denies having any specific complaints. Remains on insulin drip which is running at 1 unit an hour for adequate blood sugar control. On 05/05/2024, the patient is being seen for a follow-up. The patient is currently on her intrinsic pacemaker and she is pacing at rate of 60. Her cardiac output and index are being monitored. Earlier this morning, the cardiac index was a 2.2. The patient remains on milrinone 0.125 mcg/kg/min. Urine output is adequate. Output from the chest tubes are minimal. Using incentive spirometer. She remains on 2 L of oxygen by nasal cannula. Chest x-ray from today shows small bilateral pleural effusions and cardiomegaly. Blood work from today shows a white cell count of 12.4, hemoglobin of 9.4 and platelet count of 73. BUN is 20 with a creatinine of 0.7 and sodium is at 130. The patient was started on metoprolol 12.5 mg p.o. twice a day. She is centimeter on 12 mg p.o. daily. She remains on aspirin. Rest of the medications remain unchanged. Midodrine was also added 5 mg p.o. 3 times daily. She is also on losartan 12.5 mg p.o. daily. She is currently postop day #2 following a aortic valve replacement and mitral valve repair. On today's evaluation 05/06/2024, the patient is being seen for a follow-up. The patient remains on 2 L of oxygen by nasal cannula. Chest x-ray findings remain unchanged the patient continues to have some small bilateral pleural effusions. The patient utilizing her intrinsic pacemaker. Urine output is in order of 30 to 40 cc an hour. She remains on milrinone at 0.25 mcg/kg/h and a cardiac index of 2.2. The patient is still inotrope dependent as the patient's cardiac output is dropping while the milrinone is being weaned. Meanwhile, the patient was given Lasix 40 mg IV push x 1. Awake and alert and communicating. No focal neurological deficits. Chest tubes have been removed. The white cell count of 14.1, hemoglobin is at 9.3 and a platelet count of 75. Sodium is at 126, BUN is 29 with a creatinine of 0.9. Potassium level is at 4.9. The patient is currently on amiodarone 200 mg p.o. daily. The patient is also on metoprolol which is currently on hold. Midodrine at 5 mg p.o. 3 times daily. Aspirin and Plavix. Hydralazine 50 mg p.o. twice daily. Oxycodone for pain control. The patient is postop day #3 following awaiting placement and mitral valve repair. On 05/07/2024, the patient is being seen for a follow-up. The patient remains on 2 L of oxygen by nasal cannula and chest x-ray still showing evidence of bilateral pleural effusion and pulm vascular congestion. The cardiac output is at 2.6 with an index of 1.8. SVR is at 1936. PA pressures are 45/25. CVP is 18. Given a dose of Lasix 20 mg IV push x 1 today. Remains in atrial fibrillation. Urine output is in order of 40 cc an hour and the patient remains on milrinone at 0.125 mcg/kg/h. The hemoglobin is at 9.2. White cell count is at 11.9. Platelet count is 105. BUN 33 creatinine of 0.9. Sodium levels at 126. Meanwhile, the patient is on metoprolol 12.5 mg p.o. twice a day. The patient remains on aspirin and Plavix. The patient is on hydralazine 50 mg p.o. twice daily with close monitoring of the blood pressure. Ambulating., Comfortable. Chest tubes have been removed. The patient is postop day #4 following aortic valve replacement and mitral valve repair. Objective - Vital Signs Vital signs: Vital Signs Temp 99.1 F 05/07/24 16:00 Pulse 116 H 05/07/24 16:00 Resp 26 H 05/07/24 16:00 BP 108/70 05/07/24 11:00 Pulse Ox 95 05/07/24 16:00 FiO2 50 05/03/24 20:00 Intake & Output 05/06/24 05/07/24 05/07/24 18:59 06:59 18:59 Intake Total 2219 757 1121 Output Total 6117 622 8569 Balance 1204 342 81 Weight 55.09 kg Intake: IV 729 457 421 0.9 PRESSURE BAG 99 117 81 Albumin Human 25% 50 ml 50 In Empty Bag 1 bag @ 50 mls/hr IVPB ONCE ONE Rx#: [id number] CO/CI 260 80 60 Sodium Chloride 0.9% 1, 220 260 180 000 ml @ 30 mls/hr IV . Q24H [facility] Rx#:[id number] Sodium Ferric Gluconat- 100 100 Sucrose 125 mg In Sodium Chloride 0.9% 100 ml @ 100 mls/hr IVPB DAILY [facility] Rx#:[id number] Intake, IV Titration 100 Amount Milrinone-D5w Pmx 20 mg 100 In Dextrose/Water 1 100ml .bag @ 0.125 MCG/KG/MIN 2 .13 mls/hr IV .Q24H [facility] Rx#:[id number] Oral 1490 200 700 Output: Urine 6329 573 0440 Other: Voiding Method Indwelling Catheter Indwelling Catheter Indwelling Catheter # Bowel Movements 1 ABP, PAP, CO, CI - Last Documented Arterial Blood Pressure 111/70 Pulmonary Artery Pressure 43/30 Cardiac Output 3.02 Cardiac Index 2.1 - Exam CONSTITUTIONAL: Appears comfortable, cooperative, no acute distress RESPIRATORY: Lungs sounds diminished in the bases bilaterally. Respirations even, nonlabored. Currently on 2 L nasal cannula with oxygen saturation 95%. Able to achieve 500-750 mL on incentive spirometry. Strong cough. CARDIOVASCULAR: S1, S2 present. Irregular rate and rhythm, atrial fibrillation on telemetry. Sternum stable. Palpable peripheral pulses bilaterally. Trace bilateral upper extremity edema present. No calf pain or tenderness noted. Heart hugger in place with patient demonstrating appropriate use. Antiembolism stockings, SCDs present. GASTROINTESTINAL: Abdomen soft, nontender, nondistended. Active bowel sounds present 4 quadrants. Tolerating diet. Positive flatus GENITOURINARY: Palacios present draining clear, yellow urine. Output overnight 20-45 mL per hour, 1430 mL in the last 24 hours INTEGUMENTARY: Skin is warm and dry with evidence of good perfusion. Anterior chest incision well approximated and covered with dry intact dressing NEUROLOGIC: Cranial nerves II through XII intact MUSKULOSKELETAL: Able to move all extremities, strength equal bilaterally, gait normal PSYCHIATRIC: Alert and oriented to person place and time, appropriate affect, intact judgment and insight INVASIVE LINES AND TUBES: Atrial epicardial pacemaker wires present, connected to generator, generator off. Right internal jugular Florence/Cordis, right radial arterial line present. Last CO/CI 2.6/1.8, SVR 1936, PA 44/255, CVP 18. - Labs CBC & Chem 7: 05/07/24 05:30 05/07/24 05:30 Labs: Abnormal Lab Results - Last 24 Hours (Table) 05/06/24 05/06/24 05/07/24 Range/Units 14:49 20:33 05:30 WBC 11.9 H (3.8-10.6) k/uL RBC 2.92 L (3.80-5.40) m/uL Hgb 9.2 L (11.4-16.0) gm/dL Hct 27.9 L (34.0-46.0) % Plt Count 105 L (150-450) k/uL Neutrophils # (Manual) 9.88 H (1.3-7.7) k/uL Lymphocytes # (Manual) 0.95 L (1.0-4.8) k/uL Monocytes # (Manual) 1.07 H (0-1.0) k/uL Nucleated RBCs 3 H (0-0) /100 WBC Sodium (137-145) mmol/L Chloride (98-107) mmol/L Carbon Dioxide (22-30) mmol/L BUN (7-17) mg/dL Glucose (74-99) mg/dL POC Glucose (mg/dL) 161 H (70-110) mg/dL Calcium (8.4-10.2) mg/dL Ur Random Sodium <20 L (40-220) mmol/L 05/07/24 05/07/24 05/07/24 Range/Units 05:30 05:33 11:07 WBC (3.8-10.6) k/uL RBC (3.80-5.40) m/uL Hgb (11.4-16.0) gm/dL Hct (34.0-46.0) % Plt Count (150-450) k/uL Neutrophils # (Manual) (1.3-7.7) k/uL Lymphocytes # (Manual) (1.0-4.8) k/uL Monocytes # (Manual) (0-1.0) k/uL Nucleated RBCs (0-0) /100 WBC Sodium 126 L (137-145) mmol/L Chloride 96 L (98-107) mmol/L Carbon Dioxide 21 L (22-30) mmol/L BUN 33 H (7-17) mg/dL Glucose 115 H (74-99) mg/dL POC Glucose (mg/dL) 128 H 143 H (70-110) mg/dL Calcium 8.3 L (8.4-10.2) mg/dL Ur Random Sodium (40-220) mmol/L 05/07/ Range/Units 16:13 WBC (3.8-10.6) k/uL RBC (3.80-5.40) m/uL Hgb (11.4-16.0) gm/dL Hct (34.0-46.0) % Plt Count (150-450) k/uL Neutrophils # (Manual) (1.3-7.7) k/uL Lymphocytes # (Manual) (1.0-4.8) k/uL Monocytes # (Manual) (0-1.0) k/uL Nucleated RBCs (0-0) /100 WBC Sodium (137-145) mmol/L Chloride (98-107) mmol/L Carbon Dioxide (22-30) mmol/L BUN (7-17) mg/dL Glucose (74-99) mg/dL POC Glucose (mg/dL) 141 H (70-110) mg/dL Calcium (8.4-10.2) mg/dL Ur Random Sodium (40-220) mmol/L Assessment and Plan Plan: Aortic valve replacement and mitral valve repair for severe aortic and and mitral valve regurgitation. The patient is currently postop day # 4. Hemodynamically the patient is still inotrope dependent and the patient continues to be on milrinone. Cardiac output and index are being monitored. The patient is producing adequate amount of urine output. Chest x-ray still showing pulm vascular congestion and bilateral pleural effusions. Blood pressure is stable. Cardiac rhythm is atrial fibrillation. Postthoracotomy. Mediastinal chest tube in place. Extubated to 2 L of oxygen by nasal cannula. Continues to have some pulm vessel congestion and small bilateral pleural effusion. Chest tubes have been removed. Chronic atrial fibrillation. The patient has a pacemaker. The patient is on oral amiodarone and beta-blockers been also initiated and the patient is currently on metoprolol 12.5 mg twice a day. 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 Hypertension Hyperlipidemia Osteoarthritis History of nephrolithiasis/kidney stones Diverticular disease History of tachybradycardia syndrome History of macular degeneration Small hiatal hernia Anemia, acute, expected outcome of surgery, stable Acute thrombocytopenia, expected lower, surgery, stable Plan Continues incentive spirometer Chest tubes removed Continue milrinone titrated dose based on cardiac output and urine output Monitor cardiac output and index and keep the Florence-Kip catheter in place utilizing her intrinsic pacemaker and the patient is generating her own rhythm Lasix 20 mg IV push x 1 Amiodarone 200 mg p.o. daily Metoprolol 12.5 mg twice a day Hydralazine 50 mg p.o. twice daily Midodrine 5 mg p.o. 3 times daily insulin sliding scale coverage Adequate pain control with oxycodone Heparin subcu 5000 units every 8 hours and close monitoring of the platelet count. Platelet counts are stable, improved compared to yesterday Continue aspirin and Plavix ambulating Will continue to follow and the patient will be kept in ICU for another 24 hours. Will continue to follow, evaluation was done and 32 minutes Time with Patient: Greater than 30
--- NOTE | 2024-05-07 16:32 | P.PN ---
Progress Note - Text Progress Note Date: 05/07/24 - Chief Complaint Aortic valve replacement etc. - History of Present Illness This is a pleasant 79year-old patient, follows with Dr. Thayer. 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 Kimbrough macular degeneration. Patient yesterday underwent arctic valve replacement with a bioprosthesis, mitral valve repair with annuloplasty, exclusion of left atrial appendage using a clip,. Today patient is up in a chair. Extubated. Drips include IV insulin, milrinone, amiodarone. Plan to being switched over to p.o. Paced rhythm. Has to chest tubes mediastinal. Clear liquid diet. Doing about 1000 cc on incentive spirometry. May 05: Sitting up in a recliner. Slight shortness of breath. On IV milrinone and IV heparin drip. Paced rhythm. [address] Eating fair. Been taken off insulin drip. May 06: Saw this afternoon. Up in a recliner. Did transfer from the bed to the chair. Some shortness of breath. A-fib. Given further IV loading IV amiodarone. Remains on IV milrinone. Chest tubes are out. Palacios catheter in place. Eating fair. Sodium a bit worse. Received IV Lasix and albumin. May 07: Up in a recliner. . Palacios catheter remains in place. Tired. Eating fair. Blood pressure remains lower side.-IV milrinone. On hydralazine for afterload reduction. 5 L nasal cannula. Received IV Lasix 20 mg today. Remains in atrial fibrillation. Chest x-ray shows pleural effusion/vascular congestion. Active Medications Acetaminophen (Acetaminophen Tab 325 Mg Tab) 650 mg PO Q4HR PRN PRN Reason: Fever And/ Or Mild Pain (1-3) Last Admin: 05/06/24 20:26 Dose: 650 mg Albuterol/Ipratropium (Ipratropium-Albuterol 3 Ml Neb) 3 ml INHALATION RT-Q2H PRN PRN Reason: Shortness Of Breath Or Wheezing Albuterol/Ipratropium (Ipratropium-Albuterol 3 Ml Neb) 3 ml INHALATION RT-QID WADE Last Admin: 05/07/24 15:28 Dose: 3 ml Amiodarone HCl (Amiodarone 200 Mg Tab) 400 mg PO BID [facility] Ascorbic Acid (Ascorbic Acid 500 Mg Tab) 500 mg PO DAILY [facility] Last Admin: 05/07/24 08:34 Dose: 500 mg Aspirin (Aspirin 81 Mg) 81 mg PO DAILY [facility] Last Admin: 05/07/24 08:34 Dose: 81 mg Benzocaine/Menthol (Benzocaine/Menthol Lozeng 1 Each Lozenge) 1 each MUCOUS MEM Q2H PRN PRN Reason: Sore Throat Last Admin: 05/05/24 04:21 Dose: 1 each Bisacodyl (Bisacodyl 10 Mg Supp) 10 mg RECTAL DAILY PRN PRN Reason: Constipation Cholecalciferol (Cholecalciferol 25 Mcg (1000 Iu) Tablet) 75 mcg PO DAILY [facility] Last Admin: 05/07/24 08:34 Dose: 75 mcg Clopidogrel Bisulfate (Clopidogrel 75 Mg Tab) 75 mg PO DAILY [facility] Last Admin: 05/07/24 08:35 Dose: 75 mg Dextrose/Water (Dextrose 50% Syringe 50 Ml) 25 ml IVP PER PROTOCOL PRN; Protocol PRN Reason: Hypoglycemia Dextrose/Water (Dextrose 50% Syringe 50 Ml) 50 ml IVP PER PROTOCOL PRN; Protocol PRN Reason: Hypoglycemia Last Admin: 05/03/24 14:31 Dose: 50 ml Heparin Sodium (Porcine) (Heparin Sodium,Porcine 5,000 Unit/Ml 1 Ml Vial) 5,000 unit SQ Q8HR [facility] Last Admin: 05/07/24 16:14 Dose: 5,000 unit Hydralazine HCl (Hydralazine Hcl 50 Mg Tab) 50 mg PO BID [facility] Last Admin: 05/07/24 08:34 Dose: 50 mg Calcium Gluconate/Sodium (Chloride 2 gm/ IV Solution) 100 mls @ 100 mls/hr IVPB ONCE PRN PRN Reason: Ionized Calcium less than 4.4 Stop: 06/02/24 13:59 Sodium Chloride (Saline 0.9%) 1,000 mls @ 30 mls/hr IV .Q24H [facility] Last Admin: 05/07/24 11:16 Dose: 30 mls/hr Ferric Sodium Gluconate 125 mg (/ Sodium Chloride) 110 mls @ 100 mls/hr IVPB DAILY [facility] Stop: 05/08/24 10:14 Last Admin: 05/07/24 08:37 Dose: 100 mls/hr Milrinone Lactate/Dextrose 20 (mg/ IV Solution) 100 mls @ 2.13 mls/hr IV .Q24H [facility] Last Admin: 05/07/24 05:37 Dose: 0.25 mcg/kg/min, 4.26 mls/hr Insulin Human Lispro (Insulin Lispro (Humalog) 100 Unit/Ml 10 Ml Vl) 0 unit SQ ACHS [facility]; Protocol Last Admin: 05/07/24 16:14 Dose: Not Given Lactobacillus Acidophilus (Lactobacillus Acidophilus/Pect 1 Each Capsule) 1 each PO BID [facility] Last Admin: 05/07/24 08:34 Dose: 1 each Metoclopramide HCl (Metoclopramide 5 Mg/Ml 2 Ml Vial) 10 mg IVP Q4H PRN PRN Reason: Nausea And Vomiting Last Admin: 05/07/24 07:04 Dose: 10 mg Metoprolol Tartrate (Metoprolol Tartrate 12.5 Mg Tab) 12.5 mg PO BID [facility] Last Admin: 05/07/24 08:34 Dose: 12.5 mg Midodrine (Midodrine 5 Mg Tab) 5 mg PO AC-BID [facility] Last Admin: 05/07/24 16:14 Dose: 5 mg Miscellaneous Information (Potassium Replacement Protocol 1 Each Misc) 1 each MISCELLANE DAILY PRN; Protocol PRN Reason: Per Protocol Miscellaneous Information (Magnesium Replacement Protocol 1 Each Misc) 1 each MISCELLANE DAILY PRN; Protocol PRN Reason: Per Protocol Multivitamins/Minerals (Vit A,C & N-Teugdb-Gojwlizq 1 Each Tab) 1 each PO BID [facility] Last Admin: 05/07/24 08:37 Dose: 1 each Ondansetron HCl (Ondansetron 4 Mg/2 Ml Vial) 4 mg IVP Q6HR PRN PRN Reason: Nausea And Vomiting Last Admin: 05/07/24 03:15 Dose: 4 mg Oxycodone HCl (Oxycodone Hcl 5 Mg Tab) 5 mg PO Q4HR PRN PRN Reason: Moderate Pain (Scale 4 to 6) Oxycodone HCl (Oxycodone Hcl 5 Mg Tab) 10 mg PO Q4HR PRN PRN Reason: Severe Pain (Scale 7 to 10) Pantoprazole Sodium (Pantoprazole 40 Mg Tablet) 40 mg PO AC-BRKFST [facility] Last Admin: 05/07/24 06:31 Dose: 40 mg Senna/Docusate Sodium (Sennosides-Docusate Sodium 1 Each Tab) 2 each PO HS [facility] Last Admin: 05/06/24 20:27 Dose: 2 each Sodium Chloride (Sodium Chloride 0.9% Flush 10 Ml Syringe) 10 ml IV BID [facility] Last Admin: 05/07/24 08:37 Dose: 10 ml Social history: Lives alone. Denies any alcohol or smoking history. Physical examination: VITAL SIGNS: 99.1, 116, 26, 101/70, 95% on 5 L GENERAL: BMI 21.1, up in a recliner EYES: Pupils equal. Conjunctiva clifford l. HEENT: External appearance of nose and ears normal, oral cavity grossly normal. Decreased hearing NECK: JVD unable to assess; masses not palpable. HEART: Heart sounds irregular; Venodyne boots LUNGS: Respiratory rate increased; i diminished breath sounds. ABDOMEN: Soft, nontender, liver spleen not palpable, no masses palpable. PSYCH: Alert and oriented x3; mood and affect clifford l. MUSCULOSKELETAL:No Clubbing/cyanosis;muscles-grossly intact. OA INVESTIGATIONS, reviewed in the clinical context: May 07: White count 11.9 hemoglobin 9.2 sodium 126 potassium 4.4 BUN 33 creatinine 0.99 May 06: White count 14.1 hemoglobin 9.3 platelets 95 sodium 126 potassium 4.9 BUN 29 creatinine 0.90 May 05: White count 12.4 hemoglobin 9.4 platelets 93 potassium 4.6 creatinine 0.74 May 04, 2024: White count 8.7 hemoglobin 9.5 platelets 64 sodium 137 potassium 5.6 BUN 19 creatinine 0.87 magnesium 2.5 iron 16 TIBC 154% saturation 10.3 transferrin 110 ferritin 176 Chest x-ray film personally reviewed by me-some venous prominence. Pacemaker Previous April 27, 2024: Hemoglobin 14.5 platelets 210 2D echocardiogram [April 29, 2023] EF 40%. Moderate MR. Severe TR. Severe pulmonary hypertension. Severe AR. Cardiac catheterization [April 2022] mild nonobstructive CAD Assessment plan: -aorctic valve replacement with a bioprosthesis, mitral valve repair with annuloplasty, exclusion of left atrial appendage using a clip, on May 03, [address] Hammond [Prior moderate mitral regurgitation, severe tricuspid regurgitation, severe aortic regurgitation] Patient currently has 2 chest tubes [mediastinum] in place -Persistent atrial fibrillation. Lopressor. Cordarone - -Acute hypoxic respiratory failure secondary to pulmonary edema/pleural effusion -Acute postprocedure blood loss anemia expected from surgery Follow H&H -Dilutional thrombocytopenia. Preoperative platelets 210 Follow closely -Hyperkalemia: Corrected Calcium gluconate, insulin given. -Hyponatremia likely hypervolemic, not improving Follow fluid status closely. Encourage oral intake. -Hypoalbuminemia, multifactorial: Some worsening Given IV albumin -Hard of hearing -Acute on chronic congestive heart failure exacerbation from systolic dysfunction nonischemic cardiomyopathy EF 30-35% [2D echo December 2023], Getting IV Lasix -Severe secondary pulmonary hypertension -Hypotension, cardiac On IV milrinone -Primary osteoarthritis Tylenol as needed -Colonic diverticulosis, asymptomatic -Chronic kidney disease stage IIIa, baseline creatinine from 1 2-1.3, secondary nephrosclerosis Follows with Dr. Kimbrough outpatient -Pacemaker 2016, for sick sinus syndrome -Full code IV Lasix. Albumin. Other medication to continue Thank you Dr. Hammond Past Medical History Past Medical History: Atrial Fibrillation, Heart Failure, CVA/TIA, Eye Disorder, Hearing Disorder / Deafness, Hyperlipidemia, Hypertension, Osteoarthritis (OA), Renal Disease, Skin Disorder Additional Past Medical History / Comment(s): SOB in the evening and through the night has improved with med changes. Tinnitus, bilateral hearing aid use. Diverticular disease, hemorrhoids. Hx kidney stones. hx Anemia. 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 Stage 3 kidney disease. Macular degeneration left eye. Small hiatal hernia. Reddness to cheeks, at times feels tingling. watching shadow by liver. History of Any Multi-Drug Resistant Organisms: None Reported Past Surgical History: Adenoidectomy, Appendectomy, Section, Heart Catheterization, Pacemaker, Tonsillectomy Additional Past Surgical History / Comment(s): SINUS SURGERY, section X3, CHRISTY, colonoscopy. Past Anesthesia/Blood Transfusion Reactions: No Reported Reaction Additional Past Anesthesia/Blood Transfusion Reaction / Comm: Hx blood transfusion with no issues 50 yrs ago. Type of Cardiac Device: Permanent Pacemaker Device Placement Date:: 01/2017 Left chest Smoking Status: Never smoker
[2024-05-07 20:35] LABS: Glucose,Whole Blood 133 mg/dL (70-110)
[2024-05-07] MEDS: AMIODARONE 200 MG TAB PO SCH (21:03)
--- NOTE | 2024-05-07 23:08 | PN ---
PROGRESS NOTE SUBJECTIVE: Jenise is a 79-year-old lady, who underwent aortic valve replacement, mitral valve repair, and left atrial appendage occlusion. Remains in atrial fibrillation, her pacemaker had been set at 70 beats per minute. MEDICATIONS: She is currently on, 1. Amiodarone 400 b.i.d. 2. Hydralazine 50 b.i.d. 3. Midodrine 5 b.i.d.. OBJECTIVE: GENERAL: Comfortable at rest. VITAL SIGNS: Heart rate is 90 beats per minute, blood pressure is 113/76, respiratory rate is 18. CHEST: Reveals diminished air entry at the bases. HEART: Reveals first and second heart sounds. No gallop. EXTREMITIES: Did not reveal any edema. Peripheral pulses are felt. Labs show a hemoglobin of 9.2, potassium is 4.4, creatinine is 0.9. ASSESSMENT: 1. Aortic regurgitation, status post aortic valve replacement. 2. Mitral regurgitation, status post mitral valve repair. 3. Persistent atrial fibrillation. 4. Sick sinus syndrome, status post permanent pacemaker. PLAN: The patient will continue with incentive spirometry. Continue her medications. Resume Eliquis when you can. MMODL / IJN: [id number] /
[2024-05-07] MEDS: DEXTROSE 5% IN WATER 100 ML with AMIODARONE 150 MG IV ONE (23:24)
[2024-05-08] MEDS: DEXTROSE 5% IN WATER 100 ML with AMIODARONE 150 MG IV ONE (00:41)
[2024-05-08] MEDS: IPRATROPIUM-ALBUTEROL 3 ML NEB INHALATION PRN (01:40)
[2024-05-08 06:25] LABS: Glucose,Whole Blood 132 mg/dL (70-110)
[2024-05-08 06:47] LABS: Anisocytosis Slight; HCT 27.4 % (34.0-46.0); MCH 31.6 pg (25.0-35.0); Platelet Count 139 k/uL (150-450); RBC 2.85 m/uL (3.80-5.40); RDW 16.4 % (11.5-15.5); WBC 15.1 k/uL (3.8-10.6)
[2024-05-08 07:16] LABS: ALT 218 U/L (4-34); AST 325 U/L (14-36); African American GFR (CKD) 62 (>60 ml/min/1.73 sqM); Albumin 3.1 g/dL (3.5-5.0); Alkaline Phosphatase 126 U/L (38-126); Anion Gap 10 mmol/L; Blood Urea Nitrogen 38 mg/dL (7-17); Calcium 8.3 mg/dL (8.4-10.2); Carbon Dioxide 21 mmol/L (22-30); Chloride 97 mmol/L (98-107); Glucose 121 mg/dL (74-99); Magnesium 2.3 mg/dL (1.6-2.3); Non-African American GFR(CKD) 54 (>60 ml/min/1.73 sqM); Potassium 4.9 mmol/L (3.5-5.1); Sodium 128 mmol/L (137-145); Total Bilirubin 1.3 mg/dL (0.2-1.3); Total Protein 5.3 g/dL (6.3-8.2)
--- NOTE | 2024-05-08 07:30 | XR ---
EXAMINATION TYPE: XR chest 1V portable DATE OF EXAM: 05/08/2024 4:56 AM COMPARISON: Multiple radiographs, with the most recent on 05/07/2024 TECHNIQUE: XR chest 1V portable Portable AP radiograph of the chest. CLINICAL INDICATION:Female, 79 years old with history of Postcardiac surgery; FINDINGS: Lungs/Pleura: Small right and moderate left pleural effusions with associated atelectasis. No pneumot horax. Pulmonary vascularity: Central pulmonary vascular congestion. Heart/mediastinum: Cardiomediastinal silhouette is enlarged and stable. Atrial appendage occlusion d evice. Two lead cardiac conduction device overlying the left hemithorax with lead tips projecting ove r the right ventricle and right atrium. Musculoskeletal: No acute osseous pathology. Midline sternotomy wires are noted and stable. Other findings: None Lines/Tubes: Right IJ approach [place]-Kip catheter distal tip in the region of the main pulmonary artery. IMPRESSION: Overall stable examination with persistent cardiomegaly and central pulmonary vascular congestion wit h small right and moderate left pleural effusions. There is associated atelectasis. [facility], , 05/08/2024 7:28 AM
--- NOTE | 2024-05-08 08:31 | P.PN ---
Subjective Progress Note Date: 05/08/24 Principal diagnosis: Severe aortic valve regurgitation, moderate mitral valve regurgitation, mild to moderate tricuspid valve regurgitation, and mild pulmonary hypertension. Previo us medical history of moderate left ventricular dysfunction, chronic heart failure with reduced ejection fraction, hypertension, chronic kidney disease stage III, iron deficiency anemia, paroxysmal atrial fibrillation with cardioversion in 2023 on Eliquis for anticoagulation status post permanent dual- chamber pacemaker, embolic stroke with full recovery, hard of hearing, osteoarthritis, mild lung disease, COVID in 2021, and lifelong non-smoker. POD #5 aortic valve replacement using a 19 mm Inspiris pericardial bioprosthesis, mitral valve repair using a posterior annuloplasty band 26 mm annuloflex, exclusion of the left atrial appendage using a 35mm AtriClip, and transesophageal echocardiogram and epiaortic scanning. Postoperative blood loss anemia and thrombocytopenia, expected given car diopulmonary bypass and hemodilution Hypervolemic hyponatremia The patient was seen and examined sitting up in recliner in the intensive care unit in no acute distress. She denies significant pain, complains of shortness of breath especially when ambulating with staff. Currently in atrial fibril lation, blood pressure better. Remains on low-dose Primacor. Patient was given IV Lasix yesterday with good diuresis, continues on hydralazine for afterload reduction. Remains on 4 L nasal cannula with oxygen saturation in the mid 90s, poor incentive spirometry effort. Right internal jugular [place]/Cordis, left brachial arterial line remains. Chest x-ray, lab work reviewed. Patient's chief complaint is that she is very tired, has not had a good night of sleep since surgery. No other new concerns. Objective - Vital Signs Vital signs: Vital Signs Temp 99.3 F 05/08/24 04:00 Pulse 107 H 05/08/24 07:00 Resp 20 05/08/24 07:00 BP 108/79 05/08/24 07:00 Pulse Ox 94 L 05/08/24 07:00 FiO2 50 05/03/24 20:00 Intake & Output 05/07/24 05/08/24 05/08/24 18:59 06:59 18:59 Intake Total 1908 1265.013 Output Total 1495 655 Balance 413 610.013 Weight 57.4 kg Intake: IV 508 408 0.9 PRESSURE BAG 108 108 CO/CI 60 60 Sodium Chloride 0.9% 1, 240 240 000 ml @ 30 mls/hr IV . Q24H [facility] Rx#:[id number] Sodium Ferric Gluconat- 100 Sucrose 125 mg In Sodium Chloride 0.9% 100 ml @ 100 mls/hr IVPB DAILY [facility] Rx#:[id number] Intake, IV Titration 857.013 Amount Dextrose 5% in Water 100 700 ml @ 618 mls/hr IV .Q10M ONE with Amiodarone 150 mg Rx#:[id number] Dextrose 5% in Water 100 100 ml @ 618 mls/hr IV .Q10M ONE with Amiodarone 150 mg Rx#:[id number] Milrinone-D5w Pmx 20 mg 57.013 In Dextrose/Water 1 100ml .bag @ 0.125 MCG/KG/MIN 2 .13 mls/hr IV .Q24H [facility] Rx#:[id number] Oral 1400 0 Output: Urine 1495 655 Other: Voiding Method Indwelling Catheter Indwelling Catheter # Bowel Movements 1 ABP, PAP, CO, CI - Last Documented Arterial Blood Pressure 106/69 Pulmonary Artery Pressure 48/32 Cardiac Output 3.1 Cardiac Index 2.2 - Exam CONSTITUTIONAL: Appears comfortable, cooperative, no acute distress RESPIRATORY: Lungs sounds diminished in the bases bilaterally. Respirations even, nonlabored. Currently on 4 L nasal cannula with oxygen saturation 94%. Able to achieve 750 mL on incentive spirometry. Strong cough. CARDIOVASCULAR: S1, S2 present. Irregular rate and rhythm, atrial fibrillation on telemetry. Sternum stable. Palpable peripheral pulses bilaterally. Trace bilateral upper extremity edema present. No calf pain or tenderness noted. Heart hugger in place with patient demonstrating appropriate use. Antiembolism stockings, SCDs present. GASTROINTESTINAL: Abdomen soft, nontender, nondistended. Active bowel sounds present 4 quadrants. Tolerating diet. Positive bowel movement 05/08 GENITOURINARY: Palacios present draining clear, yellow urine. Output overnight 30-55 mL per hour, 2120 mL in the last 24 hours INTEGUMENTARY: Skin is warm and dry with evidence of good perfusion. Anterior chest incision well approximated and covered with dry intact dressing NEUROLOGIC: Cranial nerves II through XII intact MUSKULOSKELETAL: Able to move all extremities, strength equal bilaterally, gait normal PSYCHIATRIC: Alert and oriented to person place and time, appropriate affect, intact judgment and insight INVASIVE LINES AND TUBES: Atrial epicardial pacemaker wires present, connected to generator, generator off. Right internal jugular [place]/Cordis, right radial arterial line present. Last CO/CI 2.7/1.9, SVR 2160, PA 45/25, CVP 22. - Allied health notes Allied health notes reviewed: nursing - Labs CBC & Chem 7: 05/08/24 06:37 05/08/24 06:37 Labs: Abnormal Lab Results - Last 24 Hours (Table) 05/07/24 05/07/24 05/07/24 Range/Units 05:30 11:07 16:13 WBC 11.9 H (3.8-10.6) k/uL RBC (3.80-5.40) m/uL Hgb (11.4-16.0) gm/dL Hct (34.0-46.0) % RDW (11.5-15.5) % Plt Count (150-450) k/uL Neutrophils # (Manual) 9.88 H (1.3-7.7) k/uL Lymphocytes # (Manual) 0.95 L (1.0-4.8) k/uL Monocytes # (Manual) 1.07 H (0-1.0) k/uL Nucleated RBCs 3 H (0-0) /100 WBC Sodium (137-145) mmol/L Chloride (98-107) mmol/L Carbon Dioxide (22-30) mmol/L BUN (7-17) mg/dL Glucose (74-99) mg/dL POC Glucose (mg/dL) 143 H 141 H (70-110) mg/dL Calcium (8.4-10.2) mg/dL AST (14-36) U/L ALT (4-34) U/L Total Protein (6.3-8.2) g/dL Albumin (3.5-5.0) g/dL 05/07/24 05/08/24 05/08/24 Range/Units 20:30 06:24 06:37 WBC 15.1 H (3.8-10.6) k/uL RBC 2.85 L (3.80-5.40) m/uL Hgb 9.0 L (11.4-16.0) gm/dL Hct 27.4 L (34.0-46.0) % RDW 16.4 H (11.5-15.5) % Plt Count 139 L (150-450) k/uL Neutrophils # (Manual) (1.3-7.7) k/uL Lymphocytes # (Manual) (1.0-4.8) k/uL Monocytes # (Manual) (0-1.0) k/uL Nucleated RBCs (0-0) /100 WBC Sodium (137-145) mmol/L Chloride (98-107) mmol/L Carbon Dioxide (22-30) mmol/L BUN (7-17) mg/dL Glucose (74-99) mg/dL POC Glucose (mg/dL) 133 H 132 H (70-110) mg/dL Calcium (8.4-10.2) mg/dL AST (14-36) U/L ALT (4-34) U/L Total Protein (6.3-8.2) g/dL Albumin (3.5-5.0) g/dL / Range/Units 06:37 WBC (3.8-10.6) k/uL RBC (3.80-5.40) m/uL Hgb (11.4-16.0) gm/dL Hct (34.0-46.0) % RDW (11.5-15.5) % Plt Count (150-450) k/uL Neutrophils # (Manual) (1.3-7.7) k/uL Lymphocytes # (Manual) (1.0-4.8) k/uL Monocytes # (Manual) (0-1.0) k/uL Nucleated RBCs (0-0) /100 WBC Sodium 128 L (137-145) mmol/L Chloride 97 L (98-107) mmol/L Carbon Dioxide 21 L (22-30) mmol/L BUN 38 H (7-17) mg/dL Glucose 121 H (74-99) mg/dL POC Glucose (mg/dL) (70-110) mg/dL Calcium 8.3 L (8.4-10.2) mg/dL AST 325 H (14-36) U/L ALT 218 H (4-34) U/L Total Protein 5.3 L (6.3-8.2) g/dL Albumin 3.1 L (3.5-5.0) g/dL - Imaging and Cardiology Chest x-ray: report reviewed, image reviewed Assessment and Plan Assessment: Severe aortic valve regurgitation, status post aortic valve replacement Moderate mitral valve regurgitation, status post mitral valve repair Mild to moderate tricuspid valve regurgitation Mild pulmonary hypertension Postoperative blood loss anemia and thrombocytopenia, expected given card iopulmonary bypass and hemodilution Hypervolemic hyponatremia Transaminitis, felt to be from volume overload History of chronic heart failure with reduced ejection fraction, EF 40% Hypertension Chronic kidney disease stage III Iron deficiency anemia Paroxysmal atrial fibrillation with cardioversion in 2023 on Eliquis for anticoagulation status post permanent dual-chamber pacemaker, status post li gation of the left atrial appendage Embolic stroke with full recovery in 2016 Mild lung disease, preoperative FEV1 73% of predicted COVID in 2021 Lifelong non-smoker Plan: Continue to maximize medical therapy with low dose aspirin, Plavix and beta- pari. Will increase beta-pari therapy when tolerated. Will consider digoxin load for better heart rate control Continue hydralazine for afterload reduction with hold parameters yesterday. Midodrine stopped Continue oral amiodarone for A-fib prophylaxis. No anticoagulation until all lines and tubes have been discontinued 1 dose tolvaptan given by nephrology yesterday, consider giving a second dose today, will defer to nephrology's judgment No statin as the patient is sensitive to statins, no hyperlipidemia present Wean oxygen as tolerated. Encourage incentive spirometry use 10 times every hour while awake. Bronchodilators per pulmonology. Discontinue Primacor drip Will monitor daily labs and chest x-rays, electrolyte replacement per protocol. Lasix 40 mg IV push ordered Increase activity, ambulate as tolerated. PT/OT/cardiac rehab following GI/DVT prophylaxis Pain control per current medication regimen. No Toradol at this time due to the patient's chronic kidney disease. Insulin management per internal medicine, preoperative hemoglobin A1c 6.1% Continue right IJ cordis and [place]-Kip catheter. Continue to monitor hemodynamics. Continue Palacios for another 24 hours, continue to monitor record strict accurate intake and output. More recommendations to follow based on patient's clinical course.
[2024-05-08] MEDS: FUROSEMIDE 10 MG/ML 4 ML VIAL IV STA (09:47)
--- NOTE | 2024-05-08 09:58 | P.PN ---
Subjective Patient is seen in follow-up for chronic kidney disease. GFR at baseline. Oral intake fair. Sodium level 128. Sitting up in chair. Denies chest pain or shortness of breath. Vital signs are stable. General: No acute distress. HEENT: On nasal cannula. LUNGS: Scattered rhonchi. HEART: Rate and Rhythm are regular. ABDOMEN: Nontender. EXTREMITITES: 1+ edema. Objective - Vital Signs Vital signs: Vital Signs Temp 98.8 F 05/08/24 09:00 Pulse 103 H 05/08/24 09:30 Resp 21 05/08/24 09:30 BP 108/79 05/08/24 07:00 Pulse Ox 93 L 05/08/24 09:30 FiO2 50 05/03/24 20:00 Intake & Output 05/07/24 05/08/24 05/08/24 18:59 06:59 18:59 Intake Total 1908 1265.013 108.992 Output Total 1495 655 75 Balance 413 610.013 33.992 Weight 57.4 kg Intake: IV 508 408 78 0.9 PRESSURE BAG 108 108 18 CO/CI 60 60 20 Sodium Chloride 0.9% 1, 240 240 40 000 ml @ 30 mls/hr IV . Q24H [facility] Rx#:[id number] Sodium Ferric Gluconat- 100 Sucrose 125 mg In Sodium Chloride 0.9% 100 ml @ 100 mls/hr IVPB DAILY [facility] Rx#:[id number] Intake, IV Titration 857.013 30.992 Amount Dextrose 5% in Water 100 700 ml @ 618 mls/hr IV .Q10M ONE with Amiodarone 150 mg Rx#:[id number] Dextrose 5% in Water 100 100 ml @ 618 mls/hr IV .Q10M ONE with Amiodarone 150 mg Rx#:[id number] Milrinone-D5w Pmx 20 mg 57.013 30.992 In Dextrose/Water 1 100ml .bag @ 0.125 MCG/KG/MIN 2 .13 mls/hr IV .Q24H [facility] Rx#:[id number] Oral 1400 0 Output: Urine 1495 655 75 Other: Voiding Method Indwelling Catheter Indwelling Catheter # Bowel Movements 1 ABP, PAP, CO, CI - Last Documented Arterial Blood Pressure 111/76 Pulmonary Artery Pressure 50/30 Cardiac Output 2.7 Cardiac Index 1.9 - Labs CBC & Chem 7: 05/08/24 06:37 05/08/24 06:37 Labs: Abnormal Lab Results - Last 24 Hours (Table) 05/07/24 05/07/24 05/07/24 Range/Units 11:07 16:13 20:30 WBC (3.8-10.6) k/uL RBC (3.80-5.40) m/uL Hgb (11.4-16.0) gm/dL Hct (34.0-46.0) % RDW (11.5-15.5) % Plt Count (150-450) k/uL Sodium (137-145) mmol/L Chloride (98-107) mmol/L Carbon Dioxide (22-30) mmol/L BUN (7-17) mg/dL Glucose (74-99) mg/dL POC Glucose (mg/dL) 143 H 141 H 133 H (70-110) mg/dL Calcium (8.4-10.2) mg/dL AST (14-36) U/L ALT (4-34) U/L Total Protein (6.3-8.2) g/dL Albumin (3.5-5.0) g/dL 05/08/24 05/08/24 05/08/24 Range/Units 06:24 06:37 06:37 WBC 15.1 H (3.8-10.6) k/uL RBC 2.85 L (3.80-5.40) m/uL Hgb 9.0 L (11.4-16.0) gm/dL Hct 27.4 L (34.0-46.0) % RDW 16.4 H (11.5-15.5) % Plt Count 139 L (150-450) k/uL Sodium 128 L (137-145) mmol/L Chloride 97 L (98-107) mmol/L Carbon Dioxide 21 L (22-30) mmol/L BUN 38 H (7-17) mg/dL Glucose 121 H (74-99) mg/dL POC Glucose (mg/dL) 132 H (70-110) mg/dL Calcium 8.3 L (8.4-10.2) mg/dL AST 325 H (14-36) U/L ALT 218 H (4-34) U/L Total Protein 5.3 L (6.3-8.2) g/dL Albumin 3.1 L (3.5-5.0) g/dL Assessment and Plan Plan: Assessment: 1. Chronic kidney disease stage IIIa with baseline creatinine 1-1.3 secondary to nephrosclerosis. GFR at baseline. 2. Status post aortic valve replacement and mitral valve repair May 03, 2024. On Primacor. 3. Mild hyperkalemia secondary to underlying CKD and use of KHADIJAH inhibitor. Resolved. 4. Anemia. Iron deficiency noted. 5. Volume overload. 6. Hypervolemic hyponatremia. Urine sodium less than 20 and urine osmolality 418. TSH normal. Plan: Scheduled to receive IV Lasix today. Status post Samsca given May 07, 2024. Maintain fluid restriction. Encouraged oral intake. Maintain IV iron. Avoid nephrotoxins. Continue to monitor renal function and urine output. Repeat labs in the morning. Will repeat Samsca if sodium level trending down.
[2024-05-08] MEDS: METOPROLOL TARTRATE 12.5 MG TAB PO STA (10:49)
[2024-05-08 12:05] LABS: Glucose,Whole Blood 131 mg/dL (70-110)
--- NOTE | 2024-05-08 13:21 | P.PN ---
Subjective Progress Note Date: 05/08/24 This is a 79-year-old female patient being seen in the intensive care unit postop as the patient had severe aortic valve regurgitation with mitral valve regurgitation and mild pulmonary hypertension and moderate LV dysfunction and the patient was taken to the operating room and underwent aortic valve rep lacement and mitral valve repair. The patient is also noted to have paroxysmal A-fib and has a pacemaker in place along with history of chronic kidney disease and previous history of embolic stroke with full recovery. The patient was brought into the intensive care and intubated on the mechanical ventilator. The patient was sedated with propofol. The patient is on the mechanical ventilator, assist-control mode rate of 12, tidal volume of 400, FiO2 of 100% with a PEEP of 5. Initial blood gases postop in the intensive care unit showed a pH of 7.57 with a pCO2 of 27 and pO2 of 256. FiO2 was dropped down to 60% and follow-up gases showed a pH of 7. 36 with a pCO2 of 47 and pO2 of 153. The patient's PA pressures were 38/28. Cardiac index was 1.7. Patient has mediastinal x2.. Chest x-ray showed adequate expansion of both lungs. No evidence of any pneumothorax. The patient has a right IJ [place]-Kip catheter in place. The patient is atrially paced at rate of 80. The patient is currently on low-dose norepinephrine and milrinone which is running at 0.2 mcg/kg/min. Urine output is adequate. Initial blood work showed a white cell count of 8 with a hemoglobin 9.1 and a platelet count of 66. The sodium is at 141, potassium is at 4.4, chloride is 109 with a bicarb of 25 BUN of 18 with a creatinine of 0.7. IV fluids are normal saline at rate of 50 cc an hour. No other significant events postop. On 05/04/2024, patient is being seen for a follow-up. The patient is post aortic valve replacement and mitral valve repair and the patient is postop day #2. The patient was weaned off the mechanical ventilator and the patient was extubated any major difficulties and the patient is currently on 2 L of oxygen by nasal cannula. Hemodynamically, the patient is still requiring inotropes and the patient is currently on Primacor which is running at 0.125 mcg/kg/min and the pa tient is off norepinephrine. Cardiac index today is at 2.3. PA pressures are 31/11. The patient remains atrially paced at a rate of 80. Urine output is noted of 30 cc an hour. Remains on amiodarone and the patient will be switched from amiodarone drip to oral amiodarone. Using incentive spirometer, pulling approximately thousand. Chest x-ray from this morning was noted and the patient has cardiomegaly and pulm vascular congestion and small bilateral pleural effusions. Mediastinal chest tubes are still in place and output is minimal at this point in time. The patient is calm and comfortable. Denies having any specific complaints. Remains on insulin drip which is running at 1 unit an hour for adequate blood sugar control. On 05/05/2024, the patient is being seen for a follow-up. The patient is currently on her intrinsic pacemaker and she is pacing at rate of 60. Her cardiac output and index are being monitored. Earlier this morning, the cardiac index was a 2.2. The patient remains on milrinone 0.125 mcg/kg/min. Urine output is adequate. Output from the chest tubes are minimal. Using incentive spirometer. She remains on 2 L of oxygen by nasal cannula. Chest x-ray from today shows small bilateral pleural effusions and cardiomegaly. Blood work from today shows a white cell count of 12.4, hemoglobin of 9.4 and platelet count of 73. BUN is 20 with a creatinine of 0.7 and sodium is at 130. The patient was started on metoprolol 12.5 mg p.o. twice a day. She is centimeter on 12 mg p.o. daily. She remains on aspirin. Rest of the medications remain unchanged. Midodrine was also added 5 mg p.o. 3 times daily. She is also on losartan 12.5 mg p.o. daily. She is currently postop day #2 following a aortic valve replacement and mitral valve repair. On today's evaluation 05/06/2024, the patient is being seen for a follow-up. The patient remains on 2 L of oxygen by nasal cannula. Chest x-ray findings remain unchanged the patient continues to have some small bilateral pleural effusions. The patient utilizing her intrinsic pacemaker. Urine output is in order of 30 to 40 cc an hour. She remains on milrinone at 0.25 mcg/kg/h and a cardiac index of 2.2. The patient is still inotrope dependent as the patient's cardiac output is dropping while the milrinone is being weaned. Meanwhile, the patient was given Lasix 40 mg IV push x 1. Awake and alert and communicating. No focal neurological deficits. Chest tubes have been removed. The white cell count of 14.1, hemoglobin is at 9.3 and a platelet count of 75. Sodium is at 126, BUN is 29 with a creatinine of 0.9. Potassium level is at 4.9. The patient is currently on amiodarone 200 mg p.o. daily. The patient is also on metoprolol which is currently on hold. Midodrine at 5 mg p.o. 3 times daily. Aspirin and Plavix. Hydralazine 50 mg p.o. twice daily. Oxycodone for pain control. The patient is postop day #3 following awaiting placement and mitral valve repair. On 05/07/2024, the patient is being seen for a follow-up. The patient remains on 2 L of oxygen by nasal cannula and chest x-ray still showing evidence of bilateral pleural effusion and pulm vascular congestion. The cardiac output is at 2.6 with an index of 1.8. SVR is at 1936. PA pressures are 45/25. CVP is 18. Given a dose of Lasix 20 mg IV push x 1 today. Remains in atrial fibrillation. Urine output is in order of 40 cc an hour and the patient remains on milrinone at 0.125 mcg/kg/h. The hemoglobin is at 9.2. White cell count is at 11.9. Platelet count is 105. BUN 33 creatinine of 0.9. Sodium levels at 126. Meanwhile, the patient is on metoprolol 12.5 mg p.o. twice a day. The patient remains on aspirin and Plavix. The patient is on hydralazine 50 mg p.o. twice daily with close monitoring of the blood pressure. Ambulating., Comfortable. Chest tubes have been removed. The patient is postop day #4 following aortic valve replacement and mitral valve repair. On 05/08/2024, the patient is awake and alert and she remains on 5 L of O2 nasal cannula. Chest x-ray essentially unchanged and shows pulm vessel congestion bilateral pleural effusions. Chest tubes have been removed. Cardiac index is ranging between 1.8 and 2 and the patient was taken off the milrinone drip. For now, the patient amiodarone 4 mg p.o. twice a day, metoprolol 12.5 mg twice daily and he was given Lasix 40 mg IV push x 1. She remains on hydralazine for afterload reduction 50 mg p.o. twice a day. Blood work shows a white cell count of 15.1, hemoglobin is at 9 and a platelet count of 139. Sodium is at 128, BUN 38 with a creatinine 1.0 and potassium dose is 4.9. LFTs are slightly elevated the patient is postop day 5 following aortic valve placement and mitral valve repair. Objective - Vital Signs Vital signs: Vital Signs Temp 99.3 F 05/08/24 04:00 Pulse 101 H 05/08/24 08:51 Resp 20 05/08/24 07:00 BP 108/79 05/08/24 07:00 Pulse Ox 92 L 05/08/24 08:42 FiO2 50 05/03/24 20:00 Intake & Output 05/07/24 05/08/24 05/08/24 18:59 06:59 18:59 Intake Total 1908 1265.013 78 Output Total 1495 655 75 Balance 413 610.013 3 Weight 57.4 kg Intake: IV 508 408 78 0.9 PRESSURE BAG 108 108 18 CO/CI 60 60 20 Sodium Chloride 0.9% 1, 240 240 40 000 ml @ 30 mls/hr IV . Q24H WADE Rx#:[id number] Sodium Ferric Gluconat- 100 Sucrose 125 mg In Sodium Chloride 0.9% 100 ml @ 100 mls/hr IVPB DAILY [facility]ADE Rx#:[id number] Intake, IV Titration 857.013 Amount Dextrose 5% in Water 100 700 ml @ 618 mls/hr IV .Q10M ONE with Amiodarone 150 mg Rx#:[id number] Dextrose 5% in Water 100 100 ml @ 618 mls/hr IV .Q10M ONE with Amiodarone 150 mg Rx#:[id number] Milrinone-D5w Pmx 20 mg 57.013 In Dextrose/Water 1 100ml .bag @ 0.125 MCG/KG/MIN 2 .13 mls/hr IV .Q24H WADE Rx#:[id number] Oral 1400 0 Output: Urine 1495 655 75 Other: Voiding Method Indwelling Catheter Indwelling Catheter # Bowel Movements 1 ABP, PAP, CO, CI - Last Documented Arterial Blood Pressure 106/69 Pulmonary Artery Pressure 48/32 Cardiac Output 3.1 Cardiac Index 2.2 - Exam CONSTITUTIONAL: Appears comfortable, cooperative, no acute distress RESPIRATORY: Lungs sounds diminished in the bases bilaterally. Respirations even, nonlabored. Currently on 4 L nasal cannula with oxygen saturation 94%. Able to achieve 750 mL on incentive spirometry. Strong cough. CARDIOVASCULAR: S1, S2 present. Irregular rate and rhythm, atrial fibrillation on telemetry. Sternum stable. Palpable peripheral pulses bilaterally. Trace bilateral upper extremity edema present. No calf pain or tenderness noted. Heart hugger in place with patient demonstrating appropriate use. Antiembolism stockings, SCDs present. GASTROINTESTINAL: Abdomen soft, nontender, nondistended. Active bowel sounds present 4 quadrants. Tolerating diet. Positive bowel movement 05/08 GENITOURINARY: Palacios present draining clear, yellow urine. Output overnight 30-55 mL per hour, 2120 mL in the last 24 hours INTEGUMENTARY: Skin is warm and dry with evidence of good perfusion. Anterior chest incision well approximated and covered with dry intact dressing NEUROLOGIC: Cranial nerves II through XII intact MUSKULOSKELETAL: Able to move all extremities, strength equal bilaterally, gait normal PSYCHIATRIC: Alert and oriented to person place and time, appropriate affect, intact judgment and insight INVASIVE LINES AND TUBES: Atrial epicardial pacemaker wires present, connected to generator, generator off. Right internal jugular [place]ord[place], right radial arterial line present. Last CO/CI 2.7/1.9, SVR 2160, PA 45/25, CVP 22. - Labs CBC & Chem 7: 05/08/24 06:37 05/08/24 06:37 Labs: Abnormal Lab Results - Last 24 Hours (Table) 05/07/24 05/07/24 05/07/24 Range/Units 11:07 16:13 20:30 WBC (3.8-10.6) k/uL RBC (3.80-5.40) m/uL Hgb (11.4-16.0) gm/dL Hct (34.0-46.0) % RDW (11.5-15.5) % Plt Count (150-450) k/uL Sodium (137-145) mmol/L Chloride (98-107) mmol/L Carbon Dioxide (22-30) mmol/L BUN (7-17) mg/dL Glucose (74-99) mg/dL POC Glucose (mg/dL) 143 H 141 H 133 H (70-110) mg/dL Calcium (8.4-10.2) mg/dL AST (14-36) U/L ALT (4-34) U/L Total Protein (6.3-8.2) g/dL Albumin (3.5-5.0) g/dL 05/08/24 05/08/24 05/08/24 Range/Units 06:24 06:37 06:37 WBC 15.1 H (3.8-10.6) k/uL RBC 2.85 L (3.80-5.40) m/uL Hgb 9.0 L (11.4-16.0) gm/dL Hct 27.4 L (34.0-46.0) % RDW 16.4 H (11.5-15.5) % Plt Count 139 L (150-450) k/uL Sodium 128 L (137-145) mmol/L Chloride 97 L (98-107) mmol/L Carbon Dioxide 21 L (22-30) mmol/L BUN 38 H (7-17) mg/dL Glucose 121 H (74-99) mg/dL POC Glucose (mg/dL) 132 H (70-110) mg/dL Calcium 8.3 L (8.4-10.2) mg/dL AST 325 H (14-36) U/L ALT 218 H (4-34) U/L Total Protein 5.3 L (6.3-8.2) g/dL Albumin 3.1 L (3.5-5.0) g/dL Assessment and Plan Plan: Aortic valve replacement and mitral valve repair for severe aortic and and mitral valve regurgitation. The patient is currently postop day # 5. Hemodynamically the patient is still inotrope dependent and the patient continues to be on milrinone. Cardiac output and index are being monitored. The patient is producing adequate amount of urine output. Chest x-ray still showing pulm vascular congestion and bilateral pleural effusions. Blood pressure is stable. Cardiac rhythm is atrial fibrillation. Earlier this morning, the patient was taken off the milrinone. Cardiac output index is being monitored. Most recent cardiac index was at 1.9. Postthoracotomy. The patient is currently on 5 L of oxygen nasal cannula, continues to have some pulm vessel congestion and small bilateral pleural effusion. Chest tubes have been removed. Chronic atrial fibrillation. The patient has a pacemaker. The patient is on oral amiodarone and beta-blockers been also initiated and the patient is currently on metoprolol 12.5 mg twice a day. 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 Mild transaminitis, currently drug-induced versus related to hemodynamic changes Hypertension Hyperlipidemia Osteoarthritis History of nephrolithiasis/kidney stones Diverticular disease History of tachybradycardia syndrome History of macular degeneration Small hiatal hernia Anemia, acute, expected outcome of surgery, stable Acute thrombocytopenia, expected lower, surgery, stable Plan Continues incentive spirometer Chest tubes removed Patient currently off milrinone Monitor cardiac output and index and keep the [place]-Kip catheter in place Rhythm is sinus Lasix 20 mg IV push x 1 Amiodarone 400 mg p.o. twice daily Metoprolol 12.5 mg twice a day Hydralazine 50 mg p.o. twice daily Midodrine 5 mg p.o. 3 times daily insulin sliding scale coverage Monitor LFTs Adequate pain control with oxycodone Heparin subcu 5000 units every 8 hours and close monitoring of the platelet count. Platelet counts are stable, improved compared to yesterday Continue aspirin and Plavix ambulating Will continue to follow and the patient will be kept in ICU for another 24 hours. Will continue to follow, evaluation was done and 32 minutes Time with Patient: Greater than 30
[2024-05-08 16:18] LABS: Glucose,Whole Blood 112 mg/dL (70-110)
--- NOTE | 2024-05-08 18:09 | P.PN ---
Progress Note - Text Progress Note Date: 05/08/24 - Chief Complaint Aortic valve replacement etc. - History of Present Illness This is a pleasant 79year-old patient, follows with Dr. Thayer. 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 Kimbrough macular degeneration. Patient yesterday underwent arctic valve replacement with a bioprosthesis, mitral valve repair with annuloplasty, exclusion of left atrial appendage using a clip,. Today patient is up in a chair. Extubated. Drips include IV insulin, milrinone, amiodarone. Plan to being switched over to p.o. Paced rhythm. Has to chest tubes mediastinal. Clear liquid diet. Doing about 1000 cc on incentive spirometry. May 05: Sitting up in a recliner. Slight shortness of breath. On IV milrinone and IV heparin drip. Paced rhythm. [address] Eating fair. Been taken off insulin drip. May 06: Saw this afternoon. Up in a recliner. Did transfer from the bed to the chair. Some shortness of breath. A-fib. Given further IV loading IV amiodarone. Remains on IV milrinone. Chest tubes are out. Palacios catheter in place. Eating fair. Sodium a bit worse. Received IV Lasix and albumin. May 07: Up in a recliner. . Palacios catheter remains in place. Tired. Eating fair. Blood pressure remains lower side.-IV milrinone. On hydralazine for afterload reduction. 5 L nasal cannula. Received IV Lasix 20 mg today. Remains in atrial fibrillation. Chest x-ray shows pleural effusion/vascular congestion. May 08: ICU. Up in a recliner. Some shortness of breath. Pal[place]ios catheter. Patient switched to oral amiodarone. On 4 L nasal cannula. Eating some. Had a bowel movement. Patient been taken off IV milrinone. Remains in A-fib. Tired. LFTs have bumped up.-Note patient is on amiodarone. To switch to p.o. Could be ischemic hepatitis component. [IV amiodarone discontinued yesterday] Active Medications Acetaminophen (Acetaminophen Tab 325 Mg Tab) 650 mg PO Q4HR PRN PRN Reason: Fever And/ Or Mild Pain (1-3) Last Admin: 05/06/24 20:26 Dose: 650 mg Albuterol/Ipratropium (Ipratropium-Albuterol 3 Ml Neb) 3 ml INHALATION RT-Q2H PRN PRN Reason: Shortness Of Breath Or Wheezing Last Admin: 05/08/24 01:40 Dose: 3 ml Albuterol/Ipratropium (Ipratropium-Albuterol 3 Ml Neb) 3 ml INHALATION RT-QID [facility] Last Admin: 05/08/24 16:35 Dose: 3 ml Amiodarone HCl (Amiodarone 200 Mg Tab) 400 mg PO BID [facility] Last Admin: 05/08/24 09:48 Dose: 400 mg Ascorbic Acid (Ascorbic Acid 500 Mg Tab) 500 mg PO DAILY [facility] Last Admin: 05/08/24 09:48 Dose: 500 mg Aspirin (Aspirin 81 Mg) 81 mg PO DAILY [facility] Last Admin: 05/08/24 09:48 Dose: 81 mg Benzocaine/Menthol (Benzocaine/Menthol Lozeng 1 Each Lozenge) 1 each MUCOUS MEM Q2H PRN PRN Reason: Sore Throat Last Admin: 05/05/24 04:21 Dose: 1 each Bisacodyl (Bisacodyl 10 Mg Supp) 10 mg RECTAL DAILY PRN PRN Reason: Constipation Cholecalciferol (Cholecalciferol 25 Mcg (1000 Iu) Tablet) 75 mcg PO DAILY [facility] Last Admin: 05/08/24 09:47 Dose: 75 mcg Clopidogrel Bisulfate (Clopidogrel 75 Mg Tab) 75 mg PO DAILY [facility] Last Admin: 05/08/24 09:48 Dose: 75 mg Dextrose/Water (Dextrose 50% Syringe 50 Ml) 25 ml IVP PER PROTOCOL PRN; Protocol PRN Reason: Hypoglycemia Dextrose/Water (Dextrose 50% Syringe 50 Ml) 50 ml IVP PER PROTOCOL PRN; Protocol PRN Reason: Hypoglycemia Last Admin: 05/03/24 14:31 Dose: 50 ml Heparin Sodium (Porcine) (Heparin Sodium,Porcine 5,000 Unit/Ml 1 Ml Vial) 5,000 unit SQ Q8HR [facility] Last Admin: 05/08/24 16:14 Dose: 5,000 unit Hydralazine HCl (Hydralazine Hcl 50 Mg Tab) 50 mg PO BID [facility] Calcium Gluconate/Sodium (Chloride 2 gm/ IV Solution) 100 mls @ 100 mls/hr IVPB ONCE PRN PRN Reason: Ionized Calcium less than 4.4 Stop: 06/02/24 13:59 Sodium Chloride (Saline 0.9%) 1,000 mls @ 30 mls/hr IV .Q24H [facility] Last Admin: 05/08/24 16:14 Dose: 30 mls/hr Insulin Human Lispro (Insulin Lispro (Humalog) 100 Unit/Ml 10 Ml Vl) 0 unit SQ ACHS [facility]; Protocol Last Admin: 05/08/24 16:18 Dose: Not Given Lactobacillus Acidophilus (Lactobacillus Acidophilus/Pect 1 Each Capsule) 1 each PO BID [facility] Last Admin: 05/08/24 09:47 Dose: 1 each Melatonin (Melatonin 3 Mg Tablet) 6 mg PO HS [facility] Metoclopramide HCl (Metoclopramide 5 Mg/Ml 2 Ml Vial) 10 mg IVP Q4H PRN PRN Reason: Nausea And Vomiting Last Admin: 05/07/24 07:04 Dose: 10 mg Metoprolol Tartrate (Metoprolol Tartrate 25 Mg Tab) 25 mg PO BID [facility] Miscellaneous Information (Potassium Replacement Protocol 1 Each Misc) 1 each MISCELLANE DAILY PRN; Protocol PRN Reason: Per Protocol Miscellaneous Information (Magnesium Replacement Protocol 1 Each Misc) 1 each MISCELLANE DAILY PRN; Protocol PRN Reason: Per Protocol Multivitamins/Minerals (Vit A,C & Q-Qfolyf-Zeqspnmn 1 Each Tab) 1 each PO BID [facility] Last Admin: 05/08/24 09:47 Dose: 1 each Ondansetron HCl (Ondansetron 4 Mg/2 Ml Vial) 4 mg IVP Q6HR PRN PRN Reason: Nausea And Vomiting Last Admin: 05/08/24 16:13 Dose: 4 mg Oxycodone HCl (Oxycodone Hcl 5 Mg Tab) 5 mg PO Q4HR PRN PRN Reason: Moderate Pain (Scale 4 to 6) Oxycodone HCl (Oxycodone Hcl 5 Mg Tab) 10 mg PO Q4HR PRN PRN Reason: Severe Pain (Scale 7 to 10) Pantoprazole Sodium (Pantoprazole 40 Mg Tablet) 40 mg PO -BRKFST [facility] Last Admin: 05/08/24 06:27 Dose: 40 mg Senna/Docusate Sodium (Sennosides-Docusate Sodium 1 Each Tab) 2 each PO HS [facility] Last Admin: 05/07/24 21:04 Dose: 2 each Sodium Chloride (Sodium Chloride 0.9% Flush 10 Ml Syringe) 10 ml IV BID [facility] Last Admin: 05/08/24 09:48 Dose: 10 ml Social history: Lives alone. Denies any alcohol or smoking history. Physical examination: VITAL SIGNS: Afebrile, 87, 22, 113/77, 93% on 4 L GENERAL: BMI 21.1, up in a recliner, tired EYES: Pupils equal. Conjunctiva clifford l. HEENT: External appearance of nose and ears normal, oral cavity grossly normal. Decreased hearing NECK: JVD unable to assess; masses not palpable. HEART: Heart sounds irregular; Venodyne boots LUNGS: Respiratory rate increased; i diminished breath sounds. ABDOMEN: Soft, nontender, liver spleen not palpable, no masses palpable. PSYCH: Alert and oriented x3; mood and affect clifford l. MUSCULOSKELETAL:No Clubbing/cyanosis;muscles-grossly intact. OA INVESTIGATIONS, reviewed in the clinical context: May 08: White count 15.1 hemoglobin 9 platelets 139 sodium 128 potassium 4.9 creatinine 1.01 AST 325 ALT 218 May 07: White count 11.9 hemoglobin 9.2 sodium 126 potassium 4.4 BUN 33 creatinine 0.99 May 06: White count 14.1 hemoglobin 9.3 platelets 95 sodium 126 potassium 4.9 BUN 29 creatinine 0.90 May 05: White count 12.4 hemoglobin 9.4 platelets 93 potassium 4.6 creatinine 0.74 May 04, 2024: White count 8.7 hemoglobin 9.5 platelets 64 sodium 137 potassium 5.6 BUN 19 creatinine 0.87 magnesium 2.5 iron 16 TIBC 154% saturation 10.3 transferrin 110 ferritin 176 Chest x-ray film personally reviewed by me-some venous prominence. Pacemaker Previous April 27, 2024: Hemoglobin 14.5 platelets 210 2D echocardiogram [April 29, 2023] EF 40%. Moderate MR. Severe TR. Severe pulmonary hypertension. Severe AR. Cardiac catheterization [April 2022] mild nonobstructive CAD Assessment plan: -aorctic valve replacement with a bioprosthesis, mitral valve repair with annuloplasty, exclusion of left atrial appendage using a clip, on May 03, [address] Hammond [Prior moderate mitral regurgitation, severe tricuspid regurgitation, severe aortic regurgitation] 2 chest tubes-removed -Persistent atrial fibrillation. Lopressor. Cordarone -Hepatitis. Acute Could be ischemic hepatitis component. Note also patient's amiodarone. Given the loading dose. Now p.o. Follow labs - -Acute hypoxic respiratory failure secondary to pulmonary edema/pleural effusion Currently on 4 L nasal cannula -Acute postprocedure blood loss anemia expected from surgery Follow H&H -Dilutional thrombocytopenia. Preoperative platelets 210: Improving Follow closely -Hyperkalemia: Corrected Calcium gluconate, insulin given. -Hyponatremia likely hypervolemic, slow improvement Follow fluid status closely. Encourage oral intake. -Hypoalbuminemia, multifactorial: Given IV albumin -Hard of hearing -Acute on chronic congestive heart failure exacerbation from systolic dysfunction nonischemic cardiomyopathy EF 30-35% [2D echo December 2023], Received IV Lasix -Severe secondary pulmonary hypertension -Hypotension, cardiac On IV milrinone-discontinue -Primary osteoarthritis Tylenol as needed -Colonic diverticulosis, asymptomatic -Chronic kidney disease stage IIIa, baseline creatinine from 1 2-1.3, secondary nephrosclerosis Follows with Dr. Kimbrough outpatient -Pacemaker 2016, for sick sinus syndrome -Full code Follow liver functions. Other medications to continue. Thank you Dr. Hammond Past Medical History Past Medical History: Atrial Fibrillation, Heart Failure, CVA/TIA, Eye Disorder, Hearing Disorder / Deafness, Hyperlipidemia, Hypertension, Osteoarthritis (OA), Renal Disease, Skin Disorder Additional Past Medical History / Comment(s): SOB in the evening and through the night has improved with med changes. Tinnitus, bilateral hearing aid use. Diverticular disease, hemorrhoids. Hx kidney stones. hx Anemia. 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 Stage 3 kidney disease. Macular degeneration left eye. Small hiatal hernia. Reddness to cheeks, at times feels tingling. watching shadow by liver. History of Any Multi-Drug Resistant Organisms: None Reported Past Surgical History: Adenoidectomy, Appendectomy, Section, Heart Catheterization, Pacemaker, Tonsillectomy Additional Past Surgical History / Comment(s): SINUS SURGERY, section X3, CHRISTY, colonoscopy. Past Anesthesia/Blood Transfusion Reactions: No Reported Reaction Additional Past Anesthesia/Blood Transfusion Reaction / Comm: Hx blood transfusion with no issues 50 yrs ago. Type of Cardiac Device: Permanent Pacemaker Device Placement Date:: 01/2017 Left chest Smoking Status: Never smoker
--- NOTE | 2024-05-08 20:59 | PN ---
PROGRESS NOTE SUBJECTIVE: Jenise is a 79-year-old lady with complex valvular heart disease, paroxysmal persistent atrial fibrillation, who underwent aortic valve replacement, mitral valve repair, and left atrial appendage occlusion. She had a permanent pacemaker for sick sinus syndrome in the past. This morning, she remains in atrial fibrillation with poorly controlled ventricular rate. She complains of feeling fatigued, tired, and has musculoskeletal pain. She is on amiodarone 400 b.i.d., hydralazine 50 b.i.d., and Lopressor 25 b.i.d. Because of elevated heart rate, I am going to drop the hydralazine dose to 25 b.i.d. and increase the dose of metoprolol for better rate control. PHYSICAL EXAMINATION: VITAL SIGNS: Heart rate is 100 beats per minute, blood pressure is 130/78, respiratory rate is 18. CHEST: Reveals diminished air entry at the bases. HEART: Reveals first and second heart sounds, irregular rhythm. ABDOMEN: Soft. EXTREMITIES: Reveal mild edema. Peripheral pulses are felt. LABORATORY DATA: Shows hemoglobin of 9. Potassium is 4.9, creatinine is 1. ASSESSMENT: 1. Status post aortic valve replacement, mitral valve repair. 2. Persistent atrial fibrillation with poorly controlled ventricular rate. 3. Sick sinus syndrome, status post permanent pacemaker. PLAN: I will increase the dose of metoprolol, cut back on the dose of hydralazine, and control the heart rate as needed. MMODL / IJN: [id number] /
[2024-05-08] MEDS ORDERED: hydrALAZINE HCL 50 MG TAB PO SCH (21:00)
[2024-05-08] MEDS: MELATONIN 3 MG TABLET PO SCH (21:10)
[2024-05-08] MEDS: METOPROLOL TARTRATE 25 MG TAB PO SCH (21:10)
[2024-05-08] MEDS: hydrALAZINE HCL 50 MG TAB PO SCH (21:10)
[2024-05-08 21:49] LABS: Glucose,Whole Blood 132 mg/dL (70-110)
[2024-05-09 05:27] LABS: Anisocytosis Slight; HCT 28.7 % (34.0-46.0); HGB 9.3 gm/dL (11.4-16.0); MCH 31.7 pg (25.0-35.0); MCHC 32.4 g/dL (31.0-37.0); Macrocytosis Slight; Mean Platelet Volume 9.7; Platelet Count 161 k/uL (150-450); RBC 2.93 m/uL (3.80-5.40); RDW 18.8 % (11.5-15.5)
[2024-05-09 05:42] LABS: ALT 277 U/L (4-34); AST 287 U/L (14-36); African American GFR (CKD) 57 (>60 ml/min/1.73 sqM); Alkaline Phosphatase 149 U/L (38-126); Anion Gap 8 mmol/L; Blood Urea Nitrogen 43 mg/dL (7-17); Calcium 8.6 mg/dL (8.4-10.2); Carbon Dioxide 21 mmol/L (22-30); Chloride 98 mmol/L (98-107); Glucose 103 mg/dL (74-99); Non-African American GFR(CKD) 49 (>60 ml/min/1.73 sqM); Sodium 127 mmol/L (137-145); Total Bilirubin 1.3 mg/dL (0.2-1.3); Total Protein 5.3 g/dL (6.3-8.2)
[2024-05-09 07:09] LABS: Glucose,Whole Blood 97 mg/dL (70-110)
--- NOTE | 2024-05-09 07:58 | XR ---
EXAMINATION TYPE: XR chest 1V portable DATE OF EXAM: 05/09/2024 4:34 AM COMPARISON: Multiple radiographs, with the most recent on 05/08/2024 TECHNIQUE: XR chest 1V portable Portable AP radiograph of the chest. CLINICAL INDICATION:Female, 79 years old with history of post cardiac surgery; FINDINGS: Patient is rotated which limits evaluation. Lungs/Pleura: Small right and moderate left pleural effusions with associated atelectasis. No pneumot horax. Pulmonary vascularity: Central pulmonary vascular congestion. Heart/mediastinum: Cardiomediastinal silhouette is enlarged and stable. Atrial appendage occlusion d evice. Two lead cardiac conduction device overlying the left hemithorax with lead tips projecting ove r the right ventricle and right atrium. Musculoskeletal: No acute osseous pathology. Midline sternotomy wires are noted and stable. Other findings: None Lines/Tubes: Right IJ approach [place] catheter distal tip in the region of the main pulmonary artery. IMPRESSION: Overall stable examination with persistent cardiomegaly and central pulmonary vascular congestion wit h small right and moderate left pleural effusions. [facility], , 05/09/2024 7:56 AM
--- NOTE | 2024-05-09 08:22 | P.PN ---
Subjective Progress Note Date: 05/09/24 Principal diagnosis: Severe aortic valve regurgitation, moderate mitral valve regurgitation, mild to moderate tricuspid valve regurgitation, and mild pulmonary hypertension. Previo us medical history of moderate left ventricular dysfunction, chronic heart failure with reduced ejection fraction, hypertension, chronic kidney disease stage III, iron deficiency anemia, paroxysmal atrial fibrillation with cardioversion in 2023 on Eliquis for anticoagulation status post permanent dual- chamber pacemaker, embolic stroke with full recovery, hard of hearing, osteoarthritis, mild lung disease, COVID in 2021, and lifelong non-smoker. POD #6 aortic valve replacement using a 19 mm Inspiris pericardial bioprosthesis, mitral valve repair using a posterior annuloplasty band 26 mm annuloflex, exclusion of the left atrial appendage using a 35mm AtriClip, and transesophageal echocardiogram and epiaortic scanning. Postoperative blood loss anemia and thrombocytopenia, expected given car diopulmonary bypass and hemodilution Hypervolemic hyponatremia The patient was seen and examined with Dr. Nesbitt sitting up in recliner in the intensive care unit in no acute distress. She denies significant pain, complains of shortness of breath when ambulating with staff. Currently in sinus rhythm, blood pressure better. Patient was given IV Lasix yesterday with good diuresis, continues on hydralazine for afterload reduction. Remains on 4 L nasal cannula with oxygen saturation in the mid 90s, poor incentive spirometry effort. Right internal jugular [place]/Cordis, left brachial arterial line remains. Chest x-ray, lab work reviewed. Ambulatory in the hallway with nursing staff. No other new concerns. Objective - Vital Signs Vital signs: Vital Signs Temp 98.8 F 05/09/24 04:00 Pulse 79 05/09/24 08:06 Resp 13 05/09/24 07:00 BP 108/79 05/08/24 07:00 Pulse Ox 95 05/09/24 07:00 FiO2 50 05/03/24 20:00 Intake & Output 05/08/24 05/09/24 05/09/24 18:59 06:59 18:59 Intake Total 1229.992 518 29 Output Total 905 580 30 Balance 324.992 -62 -1 Weight 59.7 kg Intake: IV 399 418 29 0.9 PRESSURE BAG 99 108 9 CO/CI 80 70 Sodium Chloride 0.9% 1, 220 240 20 000 ml @ 30 mls/hr IV . Q24H WADE Rx#:[id number] Intake, IV Titration 30.992 Amount Milrinone-D5w Pmx 20 mg 30.992 In Dextrose/Water 1 100ml .bag @ 0.125 MCG/KG/MIN 2 .13 mls/hr IV .Q24H WADE Rx#:[id number] Tube Feeding 800 100 Output: Urine 905 580 30 Other: Voiding Method Indwelling Catheter Indwelling Catheter # Bowel Movements 1 ABP, PAP, CO, CI - Last Documented Arterial Blood Pressure 136/75 Pulmonary Artery Pressure 45/28 Cardiac Output 2.4 Cardiac Index 1.5 - Exam CONSTITUTIONAL: Appears comfortable, cooperative, no acute distress RESPIRATORY: Lungs sounds diminished in the bases bilaterally. Respirations even, nonlabored. Currently on 4 L nasal cannula with oxygen saturation 94%. Able to achieve 750 mL on incentive spirometry. Strong cough. CARDIOVASCULAR: S1, S2 present. Regular rate and rhythm, sinus rhythm on telemetry. Sternum stable. Palpable peripheral pulses bilaterally. Trace bilateral upper extremity and thigh edema present. No calf pain or tenderness noted. Heart hugger in place with patient demonstrating appropriate use. Antiembolism stockings, SCDs present. GASTROINTESTINAL: Abdomen soft, nontender, nondistended. Active bowel sounds present 4 quadrants. Tolerating diet. Positive bowel movement 05/09 GENITOURINARY: Palacios present draining clear, yellow urine. Output overnight 30-75 mL per hour, 1485 mL in the last 24 hours INTEGUMENTARY: Skin is warm and dry with evidence of good perfusion. Anterior chest incision well approximated and covered with dry intact dressing NEUROLOGIC: Cranial nerves II through XII intact MUSKULOSKELETAL: Able to move all extremities, strength equal bilaterally, gait normal PSYCHIATRIC: Alert and oriented to person place and time, appropriate affect, intact judgment and insight INVASIVE LINES AND TUBES: Atrial epicardial pacemaker wires present, connected to generator, generator off. Right internal jugular [place]/Cordis, right brachial arterial line present. Last CO/CI 2.6/1.7, SVR 1936, PA 45/29, CVP 19. - Allied health notes Allied health notes reviewed: nursing - Labs CBC & Chem 7: 05/09/24 04:30 05/09/24 04:30 Labs: Abnormal Lab Results - Last 24 Hours (Table) 05/08/24 05/08/2425 Range/Units 12:03 16:17 21:47 WBC (3.8-10.6) k/uL RBC (3.80-5.40) m/uL Hgb (11.4-16.0) gm/dL Hct (34.0-46.0) % RDW (11.5-15.5) % Sodium (137-145) mmol/L Carbon Dioxide (22-30) mmol/L BUN (7-17) mg/dL Creatinine (0.52-1.04) mg/dL Glucose (74-99) mg/dL POC Glucose (mg/dL) 131 H 112 H 132 H (70-110) mg/dL AST (14-36) U/L ALT (4-34) U/L Alkaline Phosphatase (38-126) U/L Total Protein (6.3-8.2) g/dL Albumin (3.5-5.0) g/dL 05/09/24 05/09/24 Range/Units 04:30 04:30 WBC 17.0 H (3.8-10.6) k/uL RBC 2.93 L (3.80-5.40) m/uL Hgb 9.3 L (11.4-16.0) gm/dL Hct 28.7 L (34.0-46.0) % RDW 18.8 H (11.5-15.5) % Sodium 127 L (137-145) mmol/L Carbon Dioxide 21 L (22-30) mmol/L BUN 43 H (7-17) mg/dL Creatinine 1.08 H (0.52-1.04) mg/dL Glucose 103 H (74-99) mg/dL POC Glucose (mg/dL) (70-110) mg/dL AST 287 H (14-36) U/L ALT 277 H (4-34) U/L Alkaline Phosphatase 149 H (38-126) U/L Total Protein 5.3 L (6.3-8.2) g/dL Albumin 3.0 L (3.5-5.0) g/dL - Imaging and Cardiology Chest x-ray: report reviewed, image reviewed Assessment and Plan Assessment: Severe aortic valve regurgitation, status post aortic valve replacement Moderate mitral valve regurgitation, status post mitral valve repair Mild to moderate tricuspid valve regurgitation Mild pulmonary hypertension Postoperative blood loss anemia and thrombocytopenia, expected given c ardiopulmonary bypass and hemodilution Hypervolemic hyponatremia Transaminitis, felt to be from volume overload History of chronic heart failure with reduced ejection fraction, EF 40% Hypertension Chronic kidney disease stage III Iron deficiency anemia Paroxysmal atrial fibrillation with cardioversion in 2023 on Eliquis for anticoagulation status post permanent dual-chamber pacemaker, status post ligation of the left atrial appendage Embolic stroke with full recovery in 2016 Mild lung disease, preoperative FEV1 73% of predicted COVID in 2021 Lifelong non-smoker Plan: Continue to maximize medical therapy with low dose aspirin, Plavix and beta- pari. Will increase beta-pari therapy when tolerated Continue hydralazine for afterload reduction with hold parameters Continue oral amiodarone for A-fib prophylaxis. No anticoagulation until all lines and tubes have been discontinued 1 dose tolvaptan given by nephrology 05/07, consider giving a second dose today, will defer to nephrology's judgment No statin as the patient is sensitive to statins, no hyperlipidemia present Wean oxygen as tolerated. Encourage incentive spirometry use 10 times every hour while awake. Bronchodilators per pulmonology. Will monitor daily labs and chest x-rays, electrolyte replacement per protocol. Will give Lasix 40 mg IV push Increase activity, ambulate as tolerated. PT/OT/cardiac rehab following GI/DVT prophylaxis Pain control per current medication regimen. No Toradol due to the patient's chronic kidney disease. Insulin management per internal medicine, preoperative hemoglobin A1c 6.1% Discontinue [place] continue right IJ cordis Will discontinue continue Palacios after diuresis from Lasix, may bladder scan and straight cath for greater than 300 mL residual Continue to monitor record strict accurate intake and output. More recommendations to follow based on patient's clinical course.
--- NOTE | 2024-05-09 10:03 | P.PN ---
Subjective Patient is seen in follow-up for chronic kidney disease. GFR at baseline. Oral intake fair. Sodium level stable at 127. Sitting up in chair. Denies chest pain or shortness of breath. Oral intake fair. Vital signs are stable. General: No acute distress. HEENT: On nasal cannula. LUNGS: Scattered rhonchi. HEART: Rate and Rhythm are regular. ABDOMEN: Nontender. EXTREMITITES: 1+ edema. Objective - Vital Signs Vital signs: Vital Signs Temp 97.9 F 05/09/24 08:00 Pulse 74 05/09/24 09:00 Resp 21 05/09/24 09:00 BP 108/79 05/08/24 07:00 Pulse Ox 95 05/09/24 09:00 FiO2 50 05/03/24 20:00 Intake & Output 05/08/24 05/09/24 05/09/24 18:59 06:59 18:59 Intake Total 1229.992 518 107 Output Total 905 580 55 Balance 324.992 -62 52 Weight 59.7 kg Intake: IV 399 418 107 0.9 PRESSURE BAG 99 108 27 CO/CI 80 70 20 Sodium Chloride 0.9% 1, 220 240 60 000 ml @ 30 mls/hr IV . Q24H WADE Rx#:[id number] Intake, IV Titration 30.992 Amount Milrinone-D5w Pmx 20 mg 30.992 In Dextrose/Water 1 100ml .bag @ 0.125 MCG/KG/MIN 2 .13 mls/hr IV .Q24H WADE Rx#:[id number] Tube Feeding 800 100 Output: Urine 905 580 55 Other: Voiding Method Indwelling Catheter Indwelling Catheter # Bowel Movements 1 ABP, PAP, CO, CI - Last Documented Arterial Blood Pressure 121/76 Pulmonary Artery Pressure 47/29 Cardiac Output 2.4 Cardiac Index 1.5 - Labs CBC & Chem 7: 05/09/24 04:30 05/09/24 04:30 Labs: Abnormal Lab Results - Last 24 Hours (Table) 05/08/24 05/08/24 05/08/24 Range/Units 12:03 16:17 21:47 WBC (3.8-10.6) k/uL RBC (3.80-5.40) m/uL Hgb (11.4-16.0) gm/dL Hct (34.0-46.0) % RDW (11.5-15.5) % Sodium (137-145) mmol/L Carbon Dioxide (22-30) mmol/L BUN (7-17) mg/dL Creatinine (0.52-1.04) mg/dL Glucose (74-99) mg/dL POC Glucose (mg/dL) 131 H 112 H 132 H (70-110) mg/dL AST (14-36) U/L ALT (4-34) U/L Alkaline Phosphatase (38-126) U/L Total Protein (6.3-8.2) g/dL Albumin (3.5-5.0) g/dL 05/09/24 05/09/24 Range/Units 04:30 04:30 WBC 17.0 H (3.8-10.6) k/uL RBC 2.93 L (3.80-5.40) m/uL Hgb 9.3 L (11.4-16.0) gm/dL Hct 28.7 L (34.0-46.0) % RDW 18.8 H (11.5-15.5) % Sodium 127 L (137-145) mmol/L Carbon Dioxide 21 L (22-30) mmol/L BUN 43 H (7-17) mg/dL Creatinine 1.08 H (0.52-1.04) mg/dL Glucose 103 H (74-99) mg/dL POC Glucose (mg/dL) (70-110) mg/dL AST 287 H (14-36) U/L ALT 277 H (4-34) U/L Alkaline Phosphatase 149 H (38-126) U/L Total Protein 5.3 L (6.3-8.2) g/dL Albumin 3.0 L (3.5-5.0) g/dL Assessment and Plan Plan: Assessment: 1. Chronic kidney disease stage IIIa with baseline creatinine 1-1.3 secondary to nephrosclerosis. GFR at baseline. 2. Status post aortic valve replacement and mitral valve repair May 03, 2024. On Primacor. 3. Mild hyperkalemia secondary to underlying CKD and use of KHADIJAH inhibitor. Resolved. 4. Anemia. Iron deficiency noted. Status post IV iron completed May 08, 2024. 5. Volume overload. 6. Hypervolemic hyponatremia. Urine sodium less than 20 and urine osmolality 418. TSH normal. Plan: Scheduled to receive another dose of IV Lasix today. Add urea. If no improvement in sodium level tomorrow, will give Samsca. Maintain fluid restriction. Encouraged oral intake. Avoid nephrotoxins. Continue to monitor renal function and urine output.
[2024-05-09] MEDS: FUROSEMIDE 10 MG/ML 4 ML VIAL IV STA (10:18)
[2024-05-09] MEDS: UREA 15 GM POWD.PACK PO SCH (10:19)
[2024-05-09 11:03] LABS: ABG Base Excess -2.5 mmol/L; ABG HCO3 22 mmol/L (21-25); ABG Oxygen Saturation 28.5 % (94-97); ABG PCO2 37 mmHg (35-45); ABG PH 7.39 (7.35-7.45); ABG TCO2 23 mmol/L (19-24)
[2024-05-09 11:06] LABS: ABG PO2 <30 mmHg (83-108)
[2024-05-09 11:07] LABS: Allen Test Performed? no
[2024-05-09 11:08] LABS: Glucose,Whole Blood 144 mg/dL (70-110)
--- NOTE | 2024-05-09 12:40 | P.PN ---
Progress Note - Text Progress Note Date: 05/09/24 - Chief Complaint Aortic valve replacement etc. - History of Present Illness This is a pleasant 79year-old patient, follows with Dr. Thayer. 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 Kimbrough macular degeneration. Patient yesterday underwent arctic valve replacement with a bioprosthesis, mitral valve repair with annuloplasty, exclusion of left atrial appendage using a clip,. Today patient is up in a chair. Extubated. Drips include IV insulin, milrinone, amiodarone. Plan to being switched over to p.o. Paced rhythm. Has to chest tubes mediastinal. Clear liquid diet. Doing about 1000 cc on incentive spirometry. May 05: Sitting up in a recliner. Slight shortness of breath. On IV milrinone and IV heparin drip. Paced rhythm. [address] Eating fair. Been taken off insulin drip. May 06: Saw this afternoon. Up in a recliner. Did transfer from the bed to the chair. Some shortness of breath. A-fib. Given further IV loading IV amiodarone. Remains on IV milrinone. Chest tubes are out. Palacios catheter in place. Eating fair. Sodium a bit worse. Received IV Lasix and albumin. May 07: Up in a recliner. . Palacios catheter remains in place. Tired. Eating fair. Blood pressure remains lower side.-IV milrinone. On hydralazine for afterload reduction. 5 L nasal cannula. Received IV Lasix 20 mg today. Remains in atrial fibrillation. Chest x-ray shows pleural effusion/vascular congestion. May 08: ICU. Up in a recliner. Some shortness of breath. Palacios catheter. Patient switched to oral amiodarone. On 4 L nasal cannula. Eating some. Had a bowel movement. Patient been taken off IV milrinone. Remains in A-fib. Tired. LFTs have bumped up.-Note patient is on amiodarone. To switch to p.o. Could be ischemic hepatitis component. [IV amiodarone discontinued yesterday] 16: ICU. In a recliner. Remains a bit short of breath. Tired. Eating some. Has been in and out of A-fib with paced rhythm. Remains of IV milrinone. On 4.5 L nasal cannula. Chest x-ray film personally reviewed by me-some scattered infiltrates. Urea added by nephrology for hyponatremia. Active Medications Acetaminophen (Acetaminophen Tab 325 Mg Tab) 650 mg PO Q4HR PRN PRN Reason: Fever And/ Or Mild Pain (1-3) Last Admin: 05/06/24 20:26 Dose: 650 mg Albuterol/Ipratropium (Ipratropium-Albuterol 3 Ml Neb) 3 ml INHALATION RT-Q2H PRN PRN Reason: Shortness Of Breath Or Wheezing Last Admin: 05/08/24 01:40 Dose: 3 ml Albuterol/Ipratropium (Ipratropium-Albuterol 3 Ml Neb) 3 ml INHALATION RT-QID [facility] Last Admin: 05/09/24 11:47 Dose: 3 ml Amiodarone HCl (Amiodarone 200 Mg Tab) 400 mg PO BID [facility] Last Admin: 05/09/24 10:16 Dose: 400 mg Ascorbic Acid (Ascorbic Acid 500 Mg Tab) 500 mg PO DAILY [facility] Last Admin: 05/09/24 10:18 Dose: 500 mg Aspirin (Aspirin 81 Mg) 81 mg PO DAILY [facility] Last Admin: 05/09/24 10:17 Dose: 81 mg Benzocaine/Menthol (Benzocaine/Menthol Lozeng 1 Each Lozenge) 1 each MUCOUS MEM Q2H PRN PRN Reason: Sore Throat Last Admin: 05/09/24 12:23 Dose: 1 each Bisacodyl (Bisacodyl 10 Mg Supp) 10 mg RECTAL DAILY PRN PRN Reason: Constipation Cholecalciferol (Cholecalciferol 25 Mcg (1000 Iu) Tablet) 75 mcg PO DAILY [facility] Last Admin: 05/09/24 10:17 Dose: 75 mcg Clopidogrel Bisulfate (Clopidogrel 75 Mg Tab) 75 mg PO DAILY [facility] Last Admin: 05/09/24 10:18 Dose: 75 mg Dextrose/Water (Dextrose 50% Syringe 50 Ml) 25 ml IVP PER PROTOCOL PRN; Protocol PRN Reason: Hypoglycemia Dextrose/Water (Dextrose 50% Syringe 50 Ml) 50 ml IVP PER PROTOCOL PRN; Protocol PRN Reason: Hypoglycemia Last Admin: 05/03/24 14:31 Dose: 50 ml Heparin Sodium (Porcine) (Heparin Sodium,Porcine 5,000 Unit/Ml 1 Ml Vial) 5,000 unit SQ Q8HR [facility] Last Admin: 05/09/24 10:18 Dose: 5,000 unit Hydralazine HCl (Hydralazine Hcl 50 Mg Tab) 50 mg PO Q8HR [facility] Calcium Gluconate/Sodium (Chloride 2 gm/ IV Solution) 100 mls @ 100 mls/hr IVPB ONCE PRN PRN Reason: Ionized Calcium less than 4.4 Stop: 06/02/24 13:59 Milrinone Lactate/Dextrose 20 (mg/ IV Solution) 100 mls @ 1.791 mls/hr IV .Q24H [facility] Insulin Human Lispro (Insulin Lispro (Humalog) 100 Unit/Ml 10 Ml Vl) 0 unit SQ ACHS [facility]; Protocol Last Admin: 05/09/24 12:26 Dose: Not Given Lactobacillus Acidophilus (Lactobacillus Acidophilus/Pect 1 Each Capsule) 1 each PO BID [facility] Last Admin: 05/09/24 10:17 Dose: 1 each Melatonin (Melatonin 3 Mg Tablet) 6 mg PO HS [facility] Last Admin: 05/08/24 21:10 Dose: 6 mg Metoclopramide HCl (Metoclopramide 5 Mg/Ml 2 Ml Vial) 10 mg IVP Q4H PRN PRN Reason: Nausea And Vomiting Last Admin: 05/07/24 07:04 Dose: 10 mg Metoprolol Tartrate (Metoprolol Tartrate 25 Mg Tab) 25 mg PO BID [facility] Last Admin: 05/09/24 10:16 Dose: 25 mg Miscellaneous Information (Potassium Replacement Protocol 1 Each Misc) 1 each MISCELLANE DAILY PRN; Protocol PRN Reason: Per Protocol Miscellaneous Information (Magnesium Replacement Protocol 1 Each Misc) 1 each MISCELLANE DAILY PRN; Protocol PRN Reason: Per Protocol Multivitamins/Minerals (Vit A,C & H-Tnrlhe-Ciuaussw 1 Each Tab) 1 each PO BID [facility] Last Admin: 05/09/24 10:18 Dose: 1 each Ondansetron HCl (Ondansetron 4 Mg/2 Ml Vial) 4 mg IVP Q6HR PRN PRN Reason: Nausea And Vomiting Last Admin: 05/09/24 06:05 Dose: 4 mg Oxycodone HCl (Oxycodone Hcl 5 Mg Tab) 5 mg PO Q4HR PRN PRN Reason: Moderate Pain (Scale 4 to 6) Oxycodone HCl (Oxycodone Hcl 5 Mg Tab) 10 mg PO Q4HR PRN PRN Reason: Severe Pain (Scale 7 to 10) Pantoprazole Sodium (Pantoprazole 40 Mg Tablet) 40 mg PO AC-BRKFST [facility] Last Admin: 05/09/24 07:07 Dose: 40 mg Senna/Docusate Sodium (Sennosides-Docusate Sodium 1 Each Tab) 2 each PO HS [facility] Last Admin: 05/08/24 21:11 Dose: 2 each Sodium Chloride (Sodium Chloride 0.9% Flush 10 Ml Syringe) 10 ml IV BID [facility] Last Admin: 05/09/24 10:19 Dose: 10 ml Urea (Urea 15 Gm Powd.Pack) 15 gm PO BID [facility] Last Admin: 05/09/24 10:19 Dose: 15 gm Social history: Lives alone. Denies any alcohol or smoking history. Physical examination: VITAL SIGNS: 97.9, 78, 19, 97 x 58, 96% on 4.5 L GENERAL: BMI 21.1, up in a recliner, tired EYES: Pupils equal. Conjunctiva clifford l. HEENT: External appearance of nose and ears normal, oral cavity grossly normal. Decreased hearing NECK: JVD unable to assess; masses not palpable. HEART: Heart sounds irregular; Venodyne boots LUNGS: Respiratory rate increased; i diminished breath sounds. ABDOMEN: Soft, nontender, liver spleen not palpable, no masses palpable. Palacios catheter in place PSYCH: Alert and oriented x3; mood and affect, tired. MUSCULOSKELETAL:No Clubbing/cyanosis;muscles-grossly intact. OA INVESTIGATIONS, reviewed in the clinical context: May 09: White count 17 hemoglobin 9.3 sodium 127 potassium 5 BUN 43 creatinine 1.08 ABG: pH 7.39 pO2 less than 30 May 08: White count 15.1 hemoglobin 9 platelets 139 sodium 128 potassium 4.9 creatinine 1.01 AST 325 ALT 218 May 07: White count 11.9 hemoglobin 9.2 sodium 126 potassium 4.4 BUN 33 creatinine 0.99 May 06: White count 14.1 hemoglobin 9.3 platelets 95 sodium 126 potassium 4.9 BUN 29 creatinine 0.90 May 05: White count 12.4 hemoglobin 9.4 platelets 93 potassium 4.6 creatinine 0.74 May 04, 2024: White count 8.7 hemoglobin 9.5 platelets 64 sodium 137 potassium 5.6 BUN 19 creatinine 0.87 magnesium 2.5 iron 16 TIBC 154% saturation 10.3 transferrin 110 ferritin 176 Chest x-ray film personally reviewed by me-some venous prominence. Pacemaker Previous April 27, 2024: Hemoglobin 14.5 platelets 210 2D echocardiogram [April 29, 2023] EF 40%. Moderate MR. Severe TR. Severe pulmonary hypertension. Severe AR. Cardiac catheterization [April 2022] mild nonobstructive CAD Assessment plan: -aorctic valve replacement with a bioprosthesis, mitral valve repair with annuloplasty, exclusion of left atrial appendage using a clip, on May 03, [address] Hammond [Prior moderate mitral regurgitation, severe tricuspid regurgitation, severe aortic regurgitation] 2 chest tubes-removed -Persistent atrial fibrillation. Lopressor. Cordarone -Hepatitis. Acute Could be ischemic hepatitis component. Note also patient's amiodarone. Given the loading dose. Now p.o. Follow labs - -Acute hypoxic respiratory failure secondary to pulmonary edema/pleural effusion: Slow to respond Currently on4.5 nasal cannula -Acute postprocedure blood loss anemia expected from surgery Follow H&H -Dilutional thrombocytopenia. Preoperative platelets 210: Resolved -Hyperkalemia: Corrected Calcium gluconate, insulin given. -Hyponatremia likely hypervolemic, slow improvement Follow fluid status closely. Encourage oral intake. -Hypoalbuminemia, multifactorial: Received IV albumin -Hard of hearing -Acute on chronic congestive heart failure exacerbation from systolic dysfunction nonischemic cardiomyopathy EF 30-35% [2D echo December 2023], Received IV Lasix -Severe secondary pulmonary hypertension -Essential hypertension Lopressor. Hydralazine. -Hypotension, cardiac On IV milrinone-discontinue -Primary osteoarthritis Tylenol as needed -Colonic diverticulosis, asymptomatic -Chronic kidney disease stage IIIa, baseline creatinine from 1 2-1.3, secondary nephrosclerosis Follows with Dr. Kimbrough outpatient -Pacemaker 2017, for sick sinus syndrome -Full code Follow liver functions. Other medications to continue. Thank you Dr. Hammond Past Medical History Past Medical History: Atrial Fibrillation, Heart Failure, CVA/TIA, Eye Disorder, Hearing Disorder / Deafness, Hyperlipidemia, Hypertension, Osteoarthritis (OA), Renal Disease, Skin Disorder Additional Past Medical History / Comment(s): SOB in the evening and through the night has improved with med changes. Tinnitus, bilateral hearing aid use. Dive rticular disease, hemorrhoids. Hx kidney stones. hx Anemia. 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 Stage 3 kidney disease. Macular degeneration left eye. Small hiatal hernia. Reddness to cheeks, at times feels tingling. watching shadow by liver. History of Any Multi-Drug Resistant Organisms: None Reported Past Surgical History: Adenoidectomy, Appendectomy, Section, Heart Catheterization, Pacemaker, Tonsillectomy Additional Past Surgical History / Comment(s): SINUS SURGERY, section X3, CHRISTY, colonoscopy. Past Anesthesia/Blood Transfusion Reactions: No Reported Reaction Additional Past Anesthesia/Blood Transfusion Reaction / Comm: Hx blood transfusion with no issues 50 yrs ago. Type of Cardiac Device: Permanent Pacemaker Device Placement Date:: 01/2017 Left chest Smoking Status: Never smoker
[2024-05-09] MEDS: MILRINONE-D5W PMX 20 MG in DEXTROSE/WATER 1 100ML.BAG IV SCH (12:57)
--- NOTE | 2024-05-09 13:17 | P.PN ---
Subjective Progress Note Date: 05/09/24 This is a 79-year-old female patient being seen in the intensive care unit postop as the patient had severe aortic valve regurgitation with mitral valve regurgitation and mild pulmonary hypertension and moderate LV dysfunction and the patient was taken to the operating room and underwent aortic valve rep lacement and mitral valve repair. The patient is also noted to have paroxysmal A-fib and has a pacemaker in place along with history of chronic kidney disease and previous history of embolic stroke with full recovery. The patient was brought into the intensive care and intubated on the mechanical ventilator. The patient was sedated with propofol. The patient is on the mechanical ventilator, assist-control mode rate of 12, tidal volume of 400, FiO2 of 100% with a PEEP of 5. Initial blood gases postop in the intensive care unit showed a pH of 7.57 with a pCO2 of 27 and pO2 of 256. FiO2 was dropped down to 60% and follow-up gases showed a pH of 7. 36 with a pCO2 of 47 and pO2 of 153. The patient's PA pressures were 38/28. Cardiac index was 1.7. Patient has mediastinal x2.. Chest x-ray showed adequate expansion of both lungs. No evidence of any pneumothorax. The patient has a right IJ [place]-Kip catheter in place. The patient is atrially paced at rate of 80. The patient is currently on low-dose norepinephrine and milrinone which is running at 0.2 mcg/kg/min. Urine output is adequate. Initial blood work showed a white cell count of 8 with a hemoglobin 9.1 and a platelet count of 66. The sodium is at 141, potassium is at 4.4, chloride is 109 with a bicarb of 25 BUN of 18 with a creatinine of 0.7. IV fluids are normal saline at rate of 50 cc an hour. No other significant events postop. On 05/04/2024, patient is being seen for a follow-up. The patient is post aortic valve replacement and mitral valve repair and the patient is postop day #2. The patient was weaned off the mechanical ventilator and the patient was extubated any major difficulties and the patient is currently on 2 L of oxygen by nasal cannula. Hemodynamically, the patient is still requiring inotropes and the patient is currently on Primacor which is running at 0.125 mcg/kg/min and the pa tient is off norepinephrine. Cardiac index today is at 2.3. PA pressures are 31/11. The patient remains atrially paced at a rate of 80. Urine output is noted of 30 cc an hour. Remains on amiodarone and the patient will be switched from amiodarone drip to oral amiodarone. Using incentive spirometer, pulling approximately thousand. Chest x-ray from this morning was noted and the patient has cardiomegaly and pulm vascular congestion and small bilateral pleural effusions. Mediastinal chest tubes are still in place and output is minimal at this point in time. The patient is calm and comfortable. Denies having any specific complaints. Remains on insulin drip which is running at 1 unit an hour for adequate blood sugar control. On 05/05/2024, the patient is being seen for a follow-up. The patient is currently on her intrinsic pacemaker and she is pacing at rate of 60. Her cardiac output and index are being monitored. Earlier this morning, the cardiac index was a 2.2. The patient remains on milrinone 0.125 mcg/kg/min. Urine output is adequate. Output from the chest tubes are minimal. Using incentive spirometer. She remains on 2 L of oxygen by nasal cannula. Chest x-ray from today shows small bilateral pleural effusions and cardiomegaly. Blood work from today shows a white cell count of 12.4, hemoglobin of 9.4 and platelet count of 73. BUN is 20 with a creatinine of 0.7 and sodium is at 130. The patient was started on metoprolol 12.5 mg p.o. twice a day. She is centimeter on 12 mg p.o. daily. She remains on aspirin. Rest of the medications remain unchanged. Midodrine was also added 5 mg p.o. 3 times daily. She is also on losartan 12.5 mg p.o. daily. She is currently postop day #2 following a aortic valve replacement and mitral valve repair. On today's evaluation 05/06/2024, the patient is being seen for a follow-up. The patient remains on 2 L of oxygen by nasal cannula. Chest x-ray findings remain unchanged the patient continues to have some small bilateral pleural effusions. The patient utilizing her intrinsic pacemaker. Urine output is in order of 30 to 40 cc an hour. She remains on milrinone at 0.25 mcg/kg/h and a cardiac index of 2.2. The patient is still inotrope dependent as the patient's cardiac output is dropping while the milrinone is being weaned. Meanwhile, the patient was given Lasix 40 mg IV push x 1. Awake and alert and communicating. No focal neurological deficits. Chest tubes have been removed. The white cell count of 14.1, hemoglobin is at 9.3 and a platelet count of 75. Sodium is at 126, BUN is 29 with a creatinine of 0.9. Potassium level is at 4.9. The patient is currently on amiodarone 200 mg p.o. daily. The patient is also on metoprolol which is currently on hold. Midodrine at 5 mg p.o. 3 times daily. Aspirin and Plavix. Hydralazine 50 mg p.o. twice daily. Oxycodone for pain control. The patient is postop day #3 following awaiting placement and mitral valve repair. On 05/07/2024, the patient is being seen for a follow-up. The patient remains on 2 L of oxygen by nasal cannula and chest x-ray still showing evidence of bilateral pleural effusion and pulm vascular congestion. The cardiac output is at 2.6 with an index of 1.8. SVR is at 1936. PA pressures are 45/25. CVP is 18. Given a dose of Lasix 20 mg IV push x 1 today. Remains in atrial fibrillation. Urine output is in order of 40 cc an hour and the patient remains on milrinone at 0.125 mcg/kg/h. The hemoglobin is at 9.2. White cell count is at 11.9. Platelet count is 105. BUN 33 creatinine of 0.9. Sodium levels at 126. Meanwhile, the patient is on metoprolol 12.5 mg p.o. twice a day. The patient remains on aspirin and Plavix. The patient is on hydralazine 50 mg p.o. twice daily with close monitoring of the blood pressure. Ambulating., Comfortable. Chest tubes have been removed. The patient is postop day #4 following aortic valve replacement and mitral valve repair. On 05/08/2024, the patient is awake and alert and she remains on 5 L of O2 nasal cannula. Chest x-ray essentially unchanged and shows pulm vessel congestion bilateral pleural effusions. Chest tubes have been removed. Cardiac index is ranging between 1.8 and 2 and the patient was taken off the milrinone drip. For now, the patient amiodarone 4 mg p.o. twice a day, metoprolol 12.5 mg twice daily and he was given Lasix 40 mg IV push x 1. She remains on hydralazine for afterload reduction 50 mg p.o. twice a day. Blood work shows a white cell count of 15.1, hemoglobin is at 9 and a platelet count of 139. Sodium is at 128, BUN 38 with a creatinine 1.0 and potassium dose is 4.9. LFTs are slightly elevated the patient is postop day 5 following aortic valve placement and mitral valve repair. On 05/09/2024, the patient is being seen for a follow-up. The patient remains off milrinone. The cardiac index is at 1.7 and the patient remains on 2 L of oxygen by nasal cannula. She remains atrial fibrillation. She is on amiodarone 4 mg p.o. twice a day and metoprolol 25 mg p.o. twice a day and she remains on a combination of aspirin and Plavix. The patient is also on hydralazine for afterload reduction 50 mg p.o. 3 times daily. She was given Lasix 40 mg IV push x 1 today. Chest x-ray findings are essentially unchanged and the patient has small bilateral pleural effusion and pulm vessel congestion. The white cell count is at 17, hemoglobin is at 9.3 and a platelet count is 161. Sodium levels at 127, potassium level is at 5, BUN is 43 with a creatinine of 1.07. The patient did have some mild transaminitis which is improving compared to yesterday. Chest tubes are removed. No other significant events overnight. The patient is currently on 2 L of oxygen by nasal cannula. She is ambulating. Objective - Vital Signs Vital signs: Vital Signs Temp 97.9 F 05/09/24 08:00 Pulse 74 05/09/24 09:00 Resp 21 05/09/24 09:00 BP 108/79 05/08/24 07:00 Pulse Ox 95 05/09/24 09:00 FiO2 50 05/03/24 20:00 Intake & Output 05/08/24 05/09/24 05/09/24 18:59 06:59 18:59 Intake Total 1229.992 518 107 Output Total 905 580 55 Balance 324.992 -62 52 Weight 59.7 kg Intake: IV 399 418 107 0.9 PRESSURE BAG 99 108 27 CO/CI 80 70 20 Sodium Chloride 0.9% 1, 220 240 60 000 ml @ 30 mls/hr IV . Q24H [facility] Rx#:[id number] Intake, IV Titration 30.992 Amount Milrinone-D5w Pmx 20 mg 30.992 In Dextrose/Water 1 100ml .bag @ 0.125 MCG/KG/MIN 2 .13 mls/hr IV .Q24H [facility] Rx#:[id number] Tube Feeding 800 100 Output: Urine 905 580 55 Other: Voiding Method Indwelling Catheter Indwelling Catheter # Bowel Movements 1 ABP, PAP, CO, CI - Last Documented Arterial Blood Pressure 121/76 Pulmonary Artery Pressure 47/29 Cardiac Output 2.4 Cardiac Index 1.5 - Exam CONSTITUTIONAL: Appears comfortable, cooperative, no acute distress RESPIRATORY: Lungs sounds diminished in the bases bilaterally. Respirations even, nonlabored. Currently on 4 L nasal cannula with oxygen saturation 94%. Able to achieve 750 mL on incentive spirometry. Strong cough. CARDIOVASCULAR: S1, S2 present. Regular rate and rhythm, sinus rhythm on telemetry. Sternum stable. Palpable peripheral pulses bilaterally. Trace bilateral upper extremity and thigh edema present. No calf pain or tenderness noted. Heart hugger in place with patient demonstrating appropriate use. Antiembolism stockings, SCDs present. GASTROINTESTINAL: Abdomen soft, nontender, nondistended. Active bowel sounds present 4 quadrants. Tolerating diet. Positive bowel movement 05/09 GENITOURINARY: [place] present draining clear, yellow urine. Output overnight 30 -75 mL per hour, 1485 mL in the last 24 hours INTEGUMENTARY: Skin is warm and dry with evidence of good perfusion. Anterior chest incision well approximated and covered with dry intact dressing NEUROLOGIC: Cranial nerves II through XII intact MUSKULOSKELETAL: Able to move all extremities, strength equal bilaterally, gait normal PSYCHIATRIC: Alert and oriented to person place and time, appropriate affect, intact judgment and insight INVASIVE LINES AND TUBES: Atrial epicardial pacemaker wires present, connected to generator, generator off. Right internal jugular [place], right brachial arterial line present. Last CO/CI 2.6/1.7, SVR 1936, PA 45/29, CVP 19. - Labs CBC & Chem 7: 05/09/24 04:30 05/09/24 04:30 Labs: Abnormal Lab Results - Last 24 Hours (Table) 05/08/24 05/08/24 05/08/24 Range/Units 12:03 16:17 21:47 WBC (3.8-10.6) k/uL RBC (3.80-5.40) m/uL Hgb (11.4-16.0) gm/dL Hct (34.0-46.0) % RDW (11.5-15.5) % Sodium (137-145) mmol/L Carbon Dioxide (22-30) mmol/L BUN (7-17) mg/dL Creatinine (0.52-1.04) mg/dL Glucose (74-99) mg/dL POC Glucose (mg/dL) 131 H 112 H 132 H (70-110) mg/dL AST (14-36) U/L ALT (4-34) U/L Alkaline Phosphatase (38-126) U/L Total Protein (6.3-8.2) g/dL Albumin (3.5-5.0) g/dL 05/09/24 05/09/24 Range/Units 04:30 04:30 WBC 17.0 H (3.8-10.6) k/uL RBC 2.93 L (3.80-5.40) m/uL Hgb 9.3 L (11.4-16.0) gm/dL Hct 28.7 L (34.0-46.0) % RDW 18.8 H (11.5-15.5) % Sodium 127 L (137-145) mmol/L Carbon Dioxide 21 L (22-30) mmol/L BUN 43 H (7-17) mg/dL Creatinine 1.08 H (0.52-1.04) mg/dL Glucose 103 H (74-99) mg/dL POC Glucose (mg/dL) (70-110) mg/dL AST 287 H (14-36) U/L ALT 277 H (4-34) U/L Alkaline Phosphatase 149 H (38-126) U/L Total Protein 5.3 L (6.3-8.2) g/dL Albumin 3.0 L (3.5-5.0) g/dL Assessment and Plan Plan: Aortic valve replacement and mitral valve repair for severe aortic and and mitral valve regurgitation. The patient is currently postop day # 6. Hemodynamically the patient is still inotrope dependent and the patient continues to be on milrinone. Cardiac output and index are being monitored. The patient is producing adequate amount of urine output. Chest x-ray still showing pulm vascular congestion and bilateral pleural effusions. Blood pressure is stable. Cardiac rhythm is atrial fibrillation. Patient is off milrinone and the cardiac index is at 1.7, urine output is adequate. Postthoracotomy. The patient is currently on 2 L of oxygen nasal cannula, continues to have some pulm vessel congestion and small bilateral pleural effusion. Chest tubes have been removed. Chronic atrial fibrillation. The patient has a pacemaker. The patient is on oral amiodarone and beta-blockers been also initiated and the patient is currently on metoprolol 12.5 mg twice a day. 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 Mild transaminitis, currently drug-induced versus related to hemodynamic changes Hypertension Hyperlipidemia Osteoarthritis History of nephrolithiasis/kidney stones Diverticular disease History of tachybradycardia syndrome History of macular degeneration Small hiatal hernia Anemia, acute, expected outcome of surgery, stable Acute thrombocytopenia, expected lower, surgery, stable Plan Continues incentive spirometer Chest tubes removed Patient currently off milrinone Monitor cardiac output and index and keep the [place]-Kip catheter in place Rhythm is sinus Lasix 40 mg IV push x 1 Amiodarone 400 mg p.o. twice daily Metoprolol 12.5 mg twice a day Hydralazine 50 mg p.o. twice daily Midodrine 5 mg p.o. 3 times daily insulin sliding scale coverage Monitor LFTs, improving Adequate pain control with oxycodone Heparin subcu 5000 units every 8 hours and close monitoring of the platelet count. Platelet counts are stable, improved compared to yesterday Continue aspirin and Plavix ambulating Will continue to follow and the patient will be kept in ICU for another 24 hours. Will continue to follow, evaluation was done and 32 minutes Time with Patient: Greater than 30
[2024-05-09 16:34] LABS: Glucose,Whole Blood 154 mg/dL (70-110)
--- NOTE | 2024-05-09 16:47 | PN ---
PROGRESS NOTE SUBJECTIVE: Jenise is a 79-year-old lady with aortic valve replacement, mitral valve repair, occlusion of the left atrial appendage, and atrial fibrillation with sick sinus syndrome, on permanent pacemaker. Heart rate is better controlled today. She is in general feeling better. PHYSICAL EXAMINATION: VITAL SIGNS: Heart rate is 84 beats per minute, irregular, blood pressure is 116/69, respiratory rate is 18. CHEST: Reveals better air entry bilaterally. I do not hear any crackles or rhonchi. HEART: Reveals first and second heart sounds. No gallop. EXTREMITIES: Did not reveal any edema. Peripheral pulses are felt. LABORATORY DATA: Labs show a potassium of 5, creatinine is 1. Hemoglobin is 9.3. ASSESSMENT: 1. Aortic regurgitation, status post aortic valve replacement. 2. Mitral regurgitation, status post mitral valve repair. 3. Sick sinus syndrome, status post permanent pacemaker. 4. Persistent atrial fibrillation. PLAN: Heart rate is better controlled. Continue current medications. Incentive spirometry. Increase activity. MMODL / IJN: [id number] /
[2024-05-09] MEDS: hydrALAZINE HCL 50 MG TAB PO SCH (16:50)
[2024-05-09 22:01] LABS: Glucose,Whole Blood 117 mg/dL (70-110)
[2024-05-10 04:57] LABS: Anisocytosis Moderate; HCT 27.6 % (34.0-46.0); HGB 8.8 gm/dL (11.4-16.0); Hypochromasia Slight; MCH 32.1 pg (25.0-35.0); MCHC 32.1 g/dL (31.0-37.0); MCV 99.9 fL (80.0-100.0); Macrocytosis Slight; Mean Platelet Volume 9.8; Platelet Count 160 k/uL (150-450); RBC 2.76 m/uL (3.80-5.40); RDW 21.3 % (11.5-15.5); WBC 18.2 k/uL (3.8-10.6)
[2024-05-10 05:17] LABS: ALT 441 U/L (4-34); AST 435 U/L (14-36); African American GFR (CKD) 47 (>60 ml/min/1.73 sqM); Alkaline Phosphatase 180 U/L (38-126); Anion Gap 8 mmol/L; Blood Urea Nitrogen 75 mg/dL (7-17); Calcium 8.8 mg/dL (8.4-10.2); Carbon Dioxide 21 mmol/L (22-30); Chloride 94 mmol/L (98-107); Glucose 113 mg/dL (74-99); Magnesium 2.3 mg/dL (1.6-2.3); Non-African American GFR(CKD) 41 (>60 ml/min/1.73 sqM); Potassium 4.8 mmol/L (3.5-5.1); Sodium 123 mmol/L (137-145); Total Bilirubin 1.2 mg/dL (0.2-1.3); Total Protein 5.2 g/dL (6.3-8.2)
--- NOTE | 2024-05-10 07:14 | XR ---
EXAMINATION TYPE: XR chest 1V portable DATE OF EXAM: 05/10/2024 4:25 AM COMPARISON: Chest radiographs from 05/09/2024 CLINICAL INDICATION: Female, 79 years old with history of Post open heart; TECHNIQUE: XR chest 1V portable Frontal view of the chest. FINDINGS: Lungs/Pleura: No evidence of focal consolidation or pneumothorax. Blunting of the costophrenic angles is present. Pulmonary vascularity: Pulmonary vascular congestion. Heart/mediastinum: Cardiomediastinal silhouette is enlarged and stable. Left atrial appendage occlusi on device is present. Two lead cardiac conduction device overlying the left hemithorax with lead tips projecting over the right ventricle and right atrium. Left atrial appendage occlusion device is pres ent. Musculoskeletal: No acute osseous pathology. IMPRESSION: Cardiomegaly, pulmonary vascular congestion and bilateral pleural effusions. Correlate with BNP for c ongestive heart failure. [facility], , 05/10/2024 7:12 AM
--- NOTE | 2024-05-10 08:00 | US ---
EXAMINATION TYPE: US chest DATE OF EXAM: 05/10/2024 COMPARISON: Ultrasound and chest radiograph CLINICAL INDICATION: Female, 79 years old with history of pleural effusion; left effusion, post cardi ac surgery TECHNIQUE: Grayscale imaging of the chest. Targeted ultrasound of the posterior lower Left FINDINGS: EXAM MEASUREMENTS: Left Pleural Effusion pocket size: 9.4 cm - mobile debris within Left skin surface to fluid distance: 3.1 cm Left side marked for possible thoracentesis outside the dept. Pulmonologists are able to review the images in the patient?s EMR. IMPRESSIONS: Small left complicated pleural effusion with some floating debris. [facility], , 05/10/2024 7:58 AM
--- NOTE | 2024-05-10 10:45 | XR ---
EXAMINATION TYPE: XR chest 1V portable DATE OF EXAM: 05/10/2024 10:41 AM COMPARISON: Chest radiographs from CLINICAL INDICATION: Female, 79 years old with history of s/p lt thoracentesis; [facility] TECHNIQUE: XR chest 1V portable Frontal view of the chest. FINDINGS: Lungs/Pleura: There is no evidence of pleural effusion, focal consolidation, or pneumothorax. Pulmonary vascularity: Unremarkable. Heart/mediastinum: Cardiomediastinal silhouette is unremarkable. Atherosclerotic calcifications are seen in the aorta. Post aortic valve repair changes. Left atrial appendage occlusion device is presen t. Two lead cardiac conduction device overlying the left hemithorax with lead tips projecting over th e right ventricle and right atrium. Musculoskeletal: No acute osseous pathology. Midline sternotomy wires are noted. Other findings: None IMPRESSION: Decrease in pleural effusions no evidence for pneumothorax. There remains small bilateral pleural eff usions are greater on left with cardiomegaly. [facility], , 05/10/2024 10:43 AM
--- NOTE | 2024-05-10 11:22 | P.PN ---
Subjective Progress Note Date: 05/10/24 Principal diagnosis: Severe aortic valve regurgitation, moderate mitral valve regurgitation, mild to moderate tricuspid valve regurgitation, and mild pulmonary hypertension. Previo us medical history of moderate left ventricular dysfunction, chronic heart failure with reduced ejection fraction, hypertension, chronic kidney disease stage III, iron deficiency anemia, paroxysmal atrial fibrillation with cardioversion in 2023 on Eliquis for anticoagulation status post permanent dual- chamber pacemaker, embolic stroke with full recovery, hard of hearing, osteoarthritis, mild lung disease, COVID in 2021, and lifelong non-smoker. POD #7 aortic valve replacement using a 19 mm Inspiris pericardial bioprosthesis, mitral valve repair using a posterior annuloplasty band 26 mm annuloflex, exclusion of the left atrial appendage using a 35mm AtriClip, and transesophageal echocardiogram and epiaortic scanning. Postoperative blood loss anemia and thrombocytopenia, expected given car diopulmonary bypass and hemodilution. The patient was seen and examined in follow-up today May 10, 2024 at her bedside in the intensive care unit. She is currently sitting up to the bedside chair, is awake, alert, oriented x 3 and is in no acute apparent distress. Denies any complaints of shortness of breath at this time, although is complaining of some periods of feeling woozy. Denies any complaints of pain at this time. Chest x-ray this morning shows a left lower lobe pleural effusion, and ultrasound for marking remains pending. Oxygen saturations are 97% on 2 L nasal cannula and she is achieving 750 mL on her incentive spirometry with encouragement. Bedside telemetry is showing a paced rhythm at 70 bpm, occasional episodes of atrial fibrillation. She remains on amiodarone for atrial fibrillation prophylaxis and is currently on metoprolol 25 mg p.o. twice daily. Primacor drip remains infusing at 0.1 mcg/kg/min. Laboratory results reviewed, AST is trending up at 435 today and her ALT is also trending up at 441 today. Chest x-ray and laboratory results were reviewed. Objective - Vital Signs Vital signs: Vital Signs Temp 97.2 F L 05/10/24 08:00 Pulse 80 05/10/24 08:00 Resp 24 05/10/24 08:00 BP 99/69 05/09/24 22:00 Pulse Ox 95 05/10/24 08:00 FiO2 50 05/03/24 20:00 Intake & Output 05/09/24 05/10/24 05/10/24 18:59 06:59 18:59 Intake Total 808 756 46 Output Total 615 1200 0 Balance 193 -444 46 Weight 59.4 kg Intake: IV 338 276 46 0.9 PRESSURE BAG 78 36 6 CO/CI 20 Sodium Chloride 0.9% 1, 240 240 40 000 ml @ 30 mls/hr IV . Q24H [facility] Rx#:[id number] Oral 470 240 Tube Feeding 240 Output: Urine 615 1200 0 Uretheral (Palacios) 600 Other: Voiding Method Indwelling Catheter Bedside Commode Bedside Commode Bedpan Bedpan # Voids 1 # Bowel Movements 1 0 0 ABP, PAP, CO, CI - Last Documented Arterial Blood Pressure 96/56 Pulmonary Artery Pressure 39/22 Cardiac Output 2.4 Cardiac Index 1.5 - Exam CONSTITUTIONAL: Appears comfortable, cooperative, no acute distress RESPIRATORY: Lungs sounds diminished in the bases bilaterally. Respirations even, nonlabored. Currently on 2 L nasal cannula with oxygen saturation 97%. Able to achieve 750 mL on incentive spirometry. Strong cough. CARDIOVASCULAR: S1, S2 present. Regular rate and rhythm, sinus rhythm on telemetry. Sternum stable. Palpable peripheral pulses bilaterally. Trace bilateral upper extremity and thigh edema present. No calf pain or tenderness noted. Heart hugger in place with patient demonstrating appropriate use. Antiembolism stockings, SCDs present. GASTROINTESTINAL: Abdomen soft, nontender, nondistended. Active bowel sounds present 4 quadrants. Tolerating diet. Bowel movement 05/09/24 GENITOURINARY: Palacios present draining clear, yellow urine. Output overnight 30-75 mL per hour, 1485 mL in the last 24 hours INTEGUMENTARY: Skin is warm and dry with no clubbing or cyanosis present. Midline sternal chest incision well approximated and covered with dry intact dressing. NEUROLOGIC: Cranial nerves II through XII intact. MUSKULOSKELETAL: Able to move all extremities, strength equal bilaterally, gait normal. PSYCHIATRIC: Alert and oriented to person place and time, appropriate affect, intact judgment and insight. INVASIVE LINES AND TUBES: Atrial epicardial pacemaker wires present, connected to generator, generator off. - Allied health notes Allied health notes reviewed: nursing - Labs CBC & Chem 7: 05/10/24 04:35 05/10/24 04:35 Labs: Abnormal Lab Results - Last 24 Hours (Table) 05/09/24 05/09/24 05/09/24 Range/Units 11:01 11:06 16:32 WBC (3.8-10.6) k/uL RBC (3.80-5.40) m/uL Hgb (11.4-16.0) gm/dL Hct (34.0-46.0) % RDW (11.5-15.5) % ABG pO2 <30 L* (83-108) mmHg ABG O2 Saturation 28.5 L (94-97) % Hemoglobin 9.1 L (11.4-16.0) gm/dL Sodium (137-145) mmol/L Chloride (98-107) mmol/L Carbon Dioxide (22-30) mmol/L BUN (7-17) mg/dL Creatinine (0.52-1.04) mg/dL Glucose (74-99) mg/dL POC Glucose (mg/dL) 144 H 154 H (70-110) mg/dL AST (14-36) U/L ALT (4-34) U/L Alkaline Phosphatase (38-126) U/L Total Protein (6.3-8.2) g/dL Albumin (3.5-5.0) g/dL 05/09/24 05/10/24 05/10/24 Range/Units 21:59 04:35 04:35 WBC 18.2 H (3.8-10.6) k/uL RBC 2.76 L (3.80-5.40) m/uL Hgb 8.8 L (11.4-16.0) gm/dL Hct 27.6 L (34.0-46.0) % RDW 21.3 H (11.5-15.5) % ABG pO2 (83-108) mmHg ABG O2 Saturation (94-97) % Hemoglobin (11.4-16.0) gm/dL Sodium 123 L (137-145) mmol/L Chloride 94 L (98-107) mmol/L Carbon Dioxide 21 L (22-30) mmol/L BUN 75 H (7-17) mg/dL Creatinine 1.26 H (0.52-1.04) mg/dL Glucose 113 H (74-99) mg/dL POC Glucose (mg/dL) 117 H (70-110) mg/dL AST 435 H (14-36) U/L ALT 441 H (4-34) U/L Alkaline Phosphatase 180 H (38-126) U/L Total Protein 5.2 L (6.3-8.2) g/dL Albumin 3.0 L (3.5-5.0) g/dL - Imaging and Cardiology Chest x-ray: report reviewed, image reviewed Assessment and Plan Assessment: Severe aortic valve regurgitation, status post aortic valve replacement Moderate mitral valve regurgitation, status post mitral valve repair Mild to moderate tricuspid valve regurgitation Mild pulmonary hypertension Postoperative blood loss anemia and thrombocytopenia, expected given cardiopulmonary bypass and hemodilution Hypervolemic hyponatremia Transaminitis, felt to be from volume overload History of chronic heart failure with reduced ejection fraction, EF 40% Hypertension Chronic kidney disease stage III Iron deficiency anemia Paroxysmal atrial fibrillation with cardioversion in 2023 on Eliquis for anticoagulation status post permanent dual-chamber pacemaker, status post ligation of the left atrial appendage Embolic stroke with full recovery in 2016 Mild lung disease, preoperative FEV1 73% of predicted COVID in 2021 Lifelong non-smoker Plan: Continue to maximize medical therapy with low dose aspirin, Plavix and beta- pari. Will increase beta-pari therapy when tolerated. Continue hydralazine for afterload reduction with hold parameters. Continue oral amiodarone for atrial fibrillation prophylaxis. No anticoagulation until all lines and tubes have been discontinued. Ultrasound left chest ordered, awaiting results, if left pleural effusion is found we will ask pulmonary/critical care medicine to proceed with left thoracentesis. Consult Dr. Hernandez from infectious disease for leukocytosis. 1 dose tolvaptan given by nephrology 05/07, consider giving a second dose today, will defer to nephrology's judgment. No statin as the patient is sensitive to statins, no hyperlipidemia present. Wean oxygen as tolerated. Encourage incentive spirometry use 10 times every hour while awake. Bronchodilators per pulmonology. Will monitor daily labs and chest x-rays, electrolyte replacement per protocol. Increase activity, ambulate as tolerated. PT/OT/cardiac rehab following. GI/DVT prophylaxis. Pain control per current medication regimen. No Toradol due to the patient's chronic kidney disease. Insulin management per internal medicine, preoperative hemoglobin A1c 6.1%. Continue to monitor record strict accurate intake and output. Bladder scan and straight cath for greater than 300 mL residual More recommendations to follow based on patient's clinical course. Time with Patient: Greater than 30
--- NOTE | 2024-05-10 11:41 | CA ---
Transthoracic Echo Report Name: Jenise Kent Age: 79 Gender: F : 1945 Exam Date: 05/10/2024 08:43 Exam Location: [facility] Ht (in): 61 Wt (lb): 131 Ordering Physician: Veda Gould Attending/Referring Phys: [id number], Luis Fernando Clinical Psychology Teacher Samara Meyers, RDCS Procedure CPT: Indications: eval EF, valves Cardiac Hx: AV Replacement, MV Repair, Pacemaker Technical Quality: Fair Contrast 1: Total Dose (mL): Contrast 2: Total Dose (mL): MEASUREMENTS (Male / Female) Normal Values 2D ECHO LV Diastolic Diameter PLAX 3.3 cm 4.2 - 5.9 / 3.9 - 5.3 cm LV Systolic Diameter PLAX 2.6 cm IVS Diastolic Thickness 1.0 cm 0.6 - 1.0 / 0.6 - 0.9 cm LVPW Diastolic Thickness 1.2 cm 0.6 - 1.0 / 0.6 - 0.9 cm LV Relative Wall Thickness 0.7 RV Internal Dim ED PLAX 0.9 cm LVOT Diameter 1.6 cm LA Systolic Diameter LX 3.6 cm 3.0 - 4.0 / 2.7 - 3.8 cm LV Diastolic Volume MOD 4C 30.7 cm??? LV Systolic Volume MOD 4C 24.9 cm??? LV Ejection Fraction MOD 4C 18.8 % LV Cardiac Index MOD 4C 250.3 cm???/min???m??? LV Diastolic Length 4C 6.0 cm LV Systolic Length 4C 6.0 cm M-MODE Aortic Root Diameter MM 2.2 cm LA Systolic Diameter MM 4.9 cm LA Ao Ratio MM 2.3 DOPPLER AV Peak Velocity 211.6 cm/s AV Peak Gradient 17.9 mmHg AV Mean Velocity 141.9 cm/s AV Mean Gradient 9.9 mmHg AV Velocity Time Integral 35.4 cm LVOT Peak Velocity 92.6 cm/s LVOT Peak Gradient 3.4 mmHg LVOT Velocity Time Integral 16.9 cm LVOT Stroke Volume 35.0 cm??? LVOT Stroke Volume Index 22.2 ml/m??? LVOT Cardiac Index 1520.7 cm???/min???m??? AV Area Cont Eq vti 1.0 cm??? AV Area Cont Eq pk 0.9 cm??? MV Peak Velocity 142.2 cm/s MV Peak Gradient 8.1 mmHg MV Mean Velocity 74.4 cm/s MV Mean Gradient 2.7 mmHg MV Velocity Time Integral 35.4 cm MV Area PHT 2.9 cm??? Mitral E Point Velocity 131.6 cm/s Mitral A Point Velocity 52.9 cm/s Mitral E to A Ratio 2.5 MV Deceleration Time 257.5 ms TR Peak Velocity 243.9 cm/s TR Peak Gradient 23.8 mmHg FINDINGS Left Ventricle Left ventricular ejection fraction is estimated at 40-45 %. Mildly increased septal wall thickness. Mildly increased posterior wall thickness. Reduced global left ventricular systolic function. Abnormal septal motion consistent with left bundle branch block. Right Ventricle Mild right ventricular dilatation. Right ventricular systolic pressure within normal limits. Right Atrium Moderate right atrial dilatation. Catheter/pacemaker wire in the right atrial cavity. Left Atrium Mildly increased left atrial area. Mitral Valve MV Repair, MV Mean PG 2.7 mmHg.Trace mitral regurgitation. Aortic Valve Normally functioning bioprosthetic aortic valve without stenosis with a peak velocity of 2.11m/s, peak gradient 18 mmHg, mean gradient 10mmHg. No central aortic regurgitation. No paravalvular aortic regurgitation. Tricuspid Valve Structurally normal tricuspid valve. Moderate tricuspid regurgitation. No tricuspid stenosis. Pulmonic Valve Structurally normal pulmonic valve. Trace pulmonic regurgitation. No pulmonic stenosis. Pericardium No pericardial effusion. Left pleural effusion. No pericardial effusion. Echo free space anterior to the right ventricle likely represents a fat pad. Aorta Normal size aortic root and proximal ascending aorta. CONCLUSIONS LV size is normal there is mild concentric LVH global decrease in contractility estimate ejection fraction of 45 to 50 to 50%, atypical septal motion probably related to previous bypass surgery and conduction abnormality. Both atria are enlarged. Bioprosthetic aortic valve stable no significant gradient mild regurgitation. Mitral annular calcification with mitral valve repair being evident no significant gradient mild mitral regurgitation. Mild tricuspid regurgitation no significant pulmonary hypertension. Probable fat pad but no pericardial effusion Previewed by: Dr. Agatha Barone MD (Electronically Signed) Final Date: 10 May 2024 11:40
[2024-05-10 11:43] LABS: Glucose,Whole Blood 156 mg/dL (70-110)
--- NOTE | 2024-05-10 12:26 | OP ---
OPERATIVE REPORT DATE OF SERVICE : PROCEDURE PERFORMED: Left-sided thoracentesis. PREOPERATIVE DIAGNOSIS: Left pleural effusion. POSTOPERATIVE DIAGNOSIS: Left pleural effusion. ANESTHESIA USED: 2 mL of 1% lidocaine. PROCEDURE: The patient was placed in the sitting upright position, the area below the left scapula was prepared in a sterile fashion and drapes were applied. The area of the marking was already placed by ultrasound on the 8th intercostal space and tip of the scapula, the area was locally anesthetized with lidocaine and then, a 26-gauge needle was inserted at the same site into the pleural space. Fluid was localized into the needle. A small tiny incision was made, then, a standard thoracentesis catheter initially used, advanced into the pleural space, and as soon as the fluid was obtained, the catheter was advanced over the needle into the pleural space. Freely flowing fluid was removed, roughly 700 mL of serosanguineous fluid was removed from the left pleural space. Fluid was discarded since it was felt to be related to her surgery and was not sent for any diagnostic studies. Procedure was well tolerated, no complications. Chest x-ray showed no evidence of any complication post thoracentesis. MMODL / IJN: [id number] /
[2024-05-10] MEDS: ALBUMIN HUMAN 25% 50 ML in EMPTY BAG 1 BAG IVPB ONE (12:35)
[2024-05-10] MEDS: UREA 15 GM POWD.PACK PO ONE (12:42)
--- NOTE | 2024-05-10 12:59 | P.PN ---
Subjective Progress Note Date: 05/10/24 The patient is a 79-year-old female who is postop day 7 after aortic valve replacement and mitral valve repair patient also has known history of persistent atrial fibrillation and sick sinus syndrome status post permanent pacemaker. Patient had been feeling well postoperatively but chest x-ray showed large left pleural effusion. Patient to undergo thoracentesis. GENERAL: Well-appearing, well-nourished and in no acute distress. NECK: Supple without JVD or thyromegaly. LUNGS: Breath sounds diminished to auscultation bilaterally. Respiration equal and unlabored. No wheezes, rales or rhonchi. HEART: Regular rate and rhythm without murmurs, rubs or gallops. S1 and S2 heard. EXTREMITIES: Normal range of motion, no edema. No clubbing or cyanosis. Peripheral pulses intact and strong. TELEMETRY: Paced rhythm LABS: WBC 18.2, hemoglobin 8.8, hematocrit 27.6, platelet 160, sodium 123, potassium 4.8, BUN 75, creatinine 1.26, AST 435, ALT 441 IMPRESSION: Severe aortic valve regurgitation, status post aortic valve replacement Moderate mitral valve regurgitation, status post mitral valve repair Transaminitis, worsening History of chronic heart failure with reduced ejection fraction, EF 40% Hypertension Chronic kidney disease stage III Paroxysmal atrial fibrillation Sick sinus syndrome status post permanent dual-chamber pacemaker Embolic stroke with full recovery in 2017 PLAN: Continue supportive treatment Further recommendations to be based upon clinical course I am dictating on behalf of Dr John Niño's history/physical and assessment/plan. Objective - Vital Signs Vital signs: Vital Signs Temp 97.4 F L 05/10/24 12:00 Pulse 75 05/10/24 12:00 Resp 14 05/10/24 12:00 BP 99/69 05/09/24 22:00 Pulse Ox 94 L 05/10/24 12:00 FiO2 50 05/03/24 20:00 Intake & Output 05/09/24 05/10/24 05/10/24 18:59 06:59 18:59 Intake Total 808 756 138 Output Total 615 1200 250 Balance 193 -444 -112 Weight 59.4 kg Intake: IV 338 276 138 0.9 PRESSURE BAG 78 36 18 CO/CI 20 Sodium Chloride 0.9% 1, 240 240 120 000 ml @ 30 mls/hr IV . Q24H [facility] Rx#:[id number] Oral 470 240 Tube Feeding 240 Output: Urine 615 1200 250 Straight 250 Uretheral (Palacios) 600 Other: Voiding Method Indwelling Catheter Bedside Commode Bedside Commode Bedpan Bedpan # Voids 1 # Bowel Movements 1 0 0 ABP, PAP, CO, CI - Last Documented Arterial Blood Pressure 91/57 Pulmonary Artery Pressure 39/22 Cardiac Output 2.4 Cardiac Index 1.5 - Labs CBC & Chem 7: 05/10/24 04:35 05/10/24 04:35 Labs: Abnormal Lab Results - Last 24 Hours (Table) 05/09/24 05/09/24 05/09/24 Range/Units 10:51 16:32 21:59 WBC (3.8-10.6) k/uL RBC (3.80-5.40) m/uL Hgb (11.4-16.0) gm/dL Hct (34.0-46.0) % RDW (11.5-15.5) % Sodium (137-145) mmol/L Chloride (98-107) mmol/L Carbon Dioxide (22-30) mmol/L BUN (7-17) mg/dL Creatinine (0.52-1.04) mg/dL Glucose (74-99) mg/dL POC Glucose (mg/dL) 154 H 117 H (70-110) mg/dL AST (14-36) U/L ALT (4-34) U/L Alkaline Phosphatase (38-126) U/L Total Protein (6.3-8.2) g/dL Albumin (3.5-5.0) g/dL Procalcitonin 0.93 H (0.02-0.50) ng/mL 05/10/24 05/10/24 05/10/24 Range/Units 04:35 04:35 11:40 WBC 18.2 H (3.8-10.6) k/uL RBC 2.76 L (3.80-5.40) m/uL Hgb 8.8 L (11.4-16.0) gm/dL Hct 27.6 L (34.0-46.0) % RDW 21.3 H (11.5-15.5) % Sodium 123 L (137-145) mmol/L Chloride 94 L (98-107) mmol/L Carbon Dioxide 21 L (22-30) mmol/L BUN 75 H (7-17) mg/dL Creatinine 1.26 H (0.52-1.04) mg/dL Glucose 113 H (74-99) mg/dL POC Glucose (mg/dL) 156 H (70-110) mg/dL AST 435 H (14-36) U/L ALT 441 H (4-34) U/L Alkaline Phosphatase 180 H (38-126) U/L Total Protein 5.2 L (6.3-8.2) g/dL Albumin 3.0 L (3.5-5.0) g/dL Procalcitonin (0.02-0.50) ng/mL
--- NOTE | 2024-05-10 14:13 | P.PN ---
Subjective Patient is seen for follow-up for hyponatremia. Sodium dropped to 123 today. It was 127 yesterday. Serum creatinine 1.26 Blood pressure has been low and patient received IV albumin. Urine output 1.8 L for 24 hours. Maintained on milrinone which is based in dextrose No complaints of shortness of breath. Objective - Vital Signs Vital signs: Vital Signs Temp 97.4 F L 05/10/24 12:00 Pulse 73 05/10/24 13:06 Resp 22 05/10/24 13:00 BP 99/69 05/09/24 22:00 Pulse Ox 97 05/10/24 13:00 FiO2 50 05/03/24 20:00 Intake & Output 05/09/24 05/10/24 05/10/24 18:59 06:59 18:59 Intake Total 808 756 161 Output Total 615 1200 250 Balance 193 -444 -89 Weight 59.4 kg Intake: IV 338 276 161 0.9 PRESSURE BAG 78 36 21 CO/CI 20 Sodium Chloride 0.9% 1, 240 240 140 000 ml @ 30 mls/hr IV . Q24H [facility] Rx#:[id number] Oral 470 240 Tube Feeding 240 Output: Urine 615 1200 250 Straight 250 Uretheral (Palacios) 600 Other: Voiding Method Indwelling Catheter Bedside Commode Bedside Commode Bedpan Bedpan # Voids 1 # Bowel Movements 1 0 0 ABP, PAP, CO, CI - Last Documented Arterial Blood Pressure 94/60 Pulmonary Artery Pressure 39/22 Cardiac Output 2.4 Cardiac Index 1.5 - Exam Patient is awake, comfortable, no acute distress. Examination of the heart S1 and S2 Examination of the lungs bilateral breath sounds are heard Abdomen is soft Examination of lower extremities shows edema 1+ bilateral GENERAL EXPEDITOR exam grossly intact - Labs CBC & Chem 7: 05/10/24 04:35 05/10/24 12:32 Labs: Abnormal Lab Results - Last 24 Hours (Table) 05/09/24 05/09/24 05/09/24 Range/Units 10:51 16:32 21:59 WBC (3.8-10.6) k/uL RBC (3.80-5.40) m/uL Hgb (11.4-16.0) gm/dL Hct (34.0-46.0) % RDW (11.5-15.5) % Sodium (137-145) mmol/L Chloride (98-107) mmol/L Carbon Dioxide (22-30) mmol/L BUN (7-17) mg/dL Creatinine (0.52-1.04) mg/dL Glucose (74-99) mg/dL POC Glucose (mg/dL) 154 H 117 H (70-110) mg/dL AST (14-36) U/L ALT (4-34) U/L Alkaline Phosphatase (38-126) U/L Total Protein (6.3-8.2) g/dL Albumin (3.5-5.0) g/dL Procalcitonin 0.93 H (0.02-0.50) ng/mL 05/10/24 05/10/24 05/10/24 Range/Units 04:35 04:35 11:40 WBC 18.2 H (3.8-10.6) k/uL RBC 2.76 L (3.80-5.40) m/uL Hgb 8.8 L (11.4-16.0) gm/dL Hct 27.6 L (34.0-46.0) % RDW 21.3 H (11.5-15.5) % Sodium 123 L (137-145) mmol/L Chloride 94 L (98-107) mmol/L Carbon Dioxide 21 L (22-30) mmol/L BUN 75 H (7-17) mg/dL Creatinine 1.26 H (0.52-1.04) mg/dL Glucose 113 H (74-99) mg/dL POC Glucose (mg/dL) 156 H (70-110) mg/dL AST 435 H (14-36) U/L ALT 441 H (4-34) U/L Alkaline Phosphatase 180 H (38-126) U/L Total Protein 5.2 L (6.3-8.2) g/dL Albumin 3.0 L (3.5-5.0) g/dL Procalcitonin (0.02-0.50) ng/mL 05/10/24 Range/Units 12:32 WBC (3.8-10.6) k/uL RBC (3.80-5.40) m/uL Hgb (11.4-16.0) gm/dL Hct (34.0-46.0) % RDW (11.5-15.5) % Sodium 124 L (137-145) mmol/L Chloride (98-107) mmol/L Carbon Dioxide (22-30) mmol/L BUN (7-17) mg/dL Creatinine (0.52-1.04) mg/dL Glucose (74-99) mg/dL POC Glucose (mg/dL) (70-110) mg/dL AST (14-36) U/L ALT (4-34) U/L Alkaline Phosphatase (38-126) U/L Total Protein (6.3-8.2) g/dL Albumin (3.5-5.0) g/dL Procalcitonin (0.02-0.50) ng/mL Assessment and Plan Assessment: 1. Chronic kidney disease stage IIIa with baseline creatinine 1-1.3 secondary to nephrosclerosis. 2. Status post aortic valve replacement and mitral valve repair May 03, 2024. On Primacor. 3. Mild hyperkalemia secondary to underlying CKD and use of KHADIJAH inhibitor. Resolved. 4. Anemia. Iron deficiency noted. Status post IV iron completed May 08, 2024. 5. Volume overload. 6. Hypervolemic hyponatremia. Urine sodium less than 20 and urine osmolality 418. TSH normal. Pressure maintained on milrinone which is based in dextrose, contributing to hyponatremia 7. Acute kidney injury, ATN, nonoliguric secondary to hypotension Plan: Increase dose of urea Repeat sodium this evening, if no improvement patient will receive Samsca Consider adding midodrine Repeat IV Lasix 20 mg x 1 Repeat labs in a.m.
[2024-05-10] MEDS: CEFEPIME 1 GM in SODIUM CHLORIDE 0.9% 50 ML IVPB SCH (14:15)
--- NOTE | 2024-05-10 14:42 | P.PN ---
Subjective Progress Note Date: 05/10/24 Principal diagnosis: POD #7 aortic valve replacement using a 19 mm Inspiris pericardial bioprosthesis, mitral valve repair using a posterior annuloplasty band 26 mm annuloflex, exclusion of the left atrial appendage using a 35mm AtriClip, and transesophageal echocardiogram and epiaortic scanning. This is a 79-year-old female patient being seen in the intensive care unit pos top as the patient had severe aortic valve regurgitation with mitral valve regurgitation and mild pulmonary hypertension and moderate LV dysfunction and the patient was taken to the operating room and underwent aortic valve replacement and mitral valve repair. The patient is also noted to have par oxysmal A-fib and has a pacemaker in place along with history of chronic kidney disease and previous history of embolic stroke with full recovery. The patient was brought into the intensive care and intubated on the mechanical ventilator. The patient was sedated with propofol. The patient is on the mechanical ventilator, assist-control mode rate of 12, tidal volume of 400, FiO2 of 100% with a PEEP of 5. Initial blood gases postop in the intensive care unit showed a pH of 7.57 with a pCO2 of 27 and pO2 of 256. FiO2 was dropped down to 60% and follow-up gases showed a pH of 7. 36 with a pCO2 of 47 and pO2 of 153. The patient's PA pressures were 38/28. Cardiac index was 1.7. Patient has mediastinal x2.. Chest x-ray showed adequate expansion of both lungs. No evidence of any pneumothorax. The patient has a right IJ Cowden-Kip catheter in place. The patient is atrially paced at rate of 80. The patient is currently on low-dose norepinephrine and milrinone which is running at 0.2 mcg/kg/min. Urine output is adequate. Initial blood work showed a white cell count of 8 with a hemoglobin 9.1 and a platelet count of 66. The sodium is at 141, potassium is at 4.4, chloride is 109 with a bicarb of 25 BUN of 18 with a creatinine of 0.7. IV fluids are normal saline at rate of 50 cc an hour. No other significant events postop. On 05/04/2024, patient is being seen for a follow-up. The patient is post aortic valve replacement and mitral valve repair and the patient is postop day #2. The patient was weaned off the mechanical ventilator and the patient was extubated any major difficulties and the patient is currently on 2 L of oxygen by nasal cannula. Hemodynamically, the patient is still requiring inotropes and the patient is currently on Primacor which is running at 0.125 mcg/kg/min and the patient is off norepinephrine. Cardiac index today is at 2.3. PA pressures are 31/11. The patient remains atrially paced at a rate of 80. Urine output is noted of 30 cc an hour. Remains on amiodarone and the patient will be switched from amiodarone drip to oral amiodarone. Using incentive spirometer, pulling approximately thousand. Chest x-ray from this morning was noted and the patient has cardiomegaly and pulm vascular congestion and small bilateral pleural effu sions. Mediastinal chest tubes are still in place and output is minimal at this point in time. The patient is calm and comfortable. Denies having any specific complaints. Remains on insulin drip which is running at 1 unit an hour for adequate blood sugar control. On 05/05/2024, the patient is being seen for a follow-up. The patient is currently on her intrinsic pacemaker and she is pacing at rate of 60. Her cardiac output and index are being monitored. Earlier this morning, the cardiac index was a 2.2. The patient remains on milrinone 0.125 mcg/kg/min. Urine output is adequate. Output from the chest tubes are minimal. Using incentive spirometer. She remains on 2 L of oxygen by nasal cannula. Chest x-ray from today shows small bilateral pleural effusions and cardiomegaly. Blood work from today shows a white cell count of 12.4, hemoglobin of 9.4 and platelet count of 73. BUN is 20 with a creatinine of 0.7 and sodium is at 130. The patient was started on metoprolol 12.5 mg p.o. twice a day. She is centimeter on 12 mg p.o. daily. She remains on aspirin. Rest of the me dications remain unchanged. Midodrine was also added 5 mg p.o. 3 times daily. She is also on losartan 12.5 mg p.o. daily. She is currently postop day #2 following a aortic valve replacement and mitral valve repair. On today's evaluation 05/06/2024, the patient is being seen for a follow-up. The patient remains on 2 L of oxygen by nasal cannula. Chest x-ray findings remain unchanged the patient continues to have some small bilateral pleural effusions. The patient utilizing her intrinsic pacemaker. Urine output is in order of 30 to 40 cc an hour. She remains on milrinone at 0.25 mcg/kg/h and a cardiac index of 2.2. The patient is still inotrope dependent as the patient's cardiac output is dropping while the milrinone is being weaned. Meanwhile, the patient was given Lasix 40 mg IV push x 1. Awake and alert and communicating. No focal neurological deficits. Chest tubes have been removed. The white cell count of 14.1, hemoglobin is at 9.3 and a platelet count of 75. Sodium is at 126, BUN is 29 with a creatinine of 0.9. Potassium level is at 4.9. The patient is currently on amiodarone 200 mg p.o. daily. The patient is also on metoprolol which is currently on hold. Midodrine at 5 mg p.o. 3 times daily. Aspirin and Plavix. Hydralazine 50 mg p.o. twice daily. Oxycodone for pain control. The patient is postop day #3 following awaiting placement and mitral valve repair. On 05/07/2024, the patient is being seen for a follow-up. The patient remains on 2 L of oxygen by nasal cannula and chest x-ray still showing evidence of bilateral pleural effusion and pulm vascular congestion. The cardiac output is at 2.6 with an index of 1.8. SVR is at 1936. PA pressures are 45/25. CVP is 18. Given a dose of Lasix 20 mg IV push x 1 today. Remains in atrial fibrillat ion. Urine output is in order of 40 cc an hour and the patient remains on milrinone at 0.125 mcg/kg/h. The hemoglobin is at 9.2. White cell count is at 11.9. Platelet count is 105. BUN 33 creatinine of 0.9. Sodium levels at 126. Meanwhile, the patient is on metoprolol 12.5 mg p.o. twice a day. The patient remains on aspirin and Plavix. The patient is on hydralazine 50 mg p.o. twice daily with close monitoring of the blood pressure. Ambulating., Comfortable. Chest tubes have been removed. The patient is postop day #4 following aortic valve replacement and mitral valve repair. On 05/08/2024, the patient is awake and alert and she remains on 5 L of O2 nasal cannula. Chest x-ray essentially unchanged and shows pulm vessel congestion bilateral pleural effusions. Chest tubes have been removed. Cardiac index is ranging between 1.8 and 2 and the patient was taken off the milrinone drip. For now, the patient amiodarone 4 mg p.o. twice a day, metoprolol 12.5 mg twice daily and he was given Lasix 40 mg IV push x 1. She remains on hydralazine for afterload reduction 50 mg p.o. twice a day. Blood work shows a white cell count of 15.1, hemoglobin is at 9 and a platelet count of 139. Sodium is at 128, BUN 38 with a creatinine 1.0 and potassium dose is 4.9. LFTs are slightly elevated the patient is postop day 5 following aortic valve placement and mitral valve repair. On 05/09/2024, the patient is being seen for a follow-up. The patient remains off milrinone. The cardiac index is at 1.7 and the patient remains on 2 L of oxygen by nasal cannula. She remains atrial fibrillation. She is on amiodarone 4 mg p.o. twice a day and metoprolol 25 mg p.o. twice a day and she remains on a combination of aspirin and Plavix. The patient is also on hydralazine for afterload reduction 50 mg p.o. 3 times daily. She was given Lasix 40 mg IV push x 1 today. Chest x-ray findings are essentially unchanged and the patient has small bilateral pleural effusion and pulm vessel congestion. The white cell count is at 17, hemoglobin is at 9.3 and a platelet count is 161. Sodium levels at 127, potassium level is at 5, BUN is 43 with a creatinine of 1.07. The patient did have some mild transaminitis which is improving compared to yesterday. Chest tubes are removed. No other significant events overnight. The patient is currently on 2 L of oxygen by nasal cannula. She is ambulating. Patient was seen today on 05/10/2024, patient remains in the ICU on 4 L nasal cannula, she is still requiring milrinone at 0.1 mcg/kg/min, IV fluids at 20 cc/h, patient continues to have paced rhythm, today she underwent left-sided thoracentesis and I was able to retrieve 700 cc of serosanguineous fluid from the left pleural space. Patient tolerated the procedure well, she does not seem to be in any distress, she does feel woozy intermittently, and I believe the patient may be having episodes of low blood pressure she is on 2 L nasal cannula with O2 sats of 97%, achieving about 750 mL with her incentive spirometry. On the monitor she continues to have occasional episodes of atrial fibrillation, remains on amiodarone and she is also on metoprolol 25 twice daily, Primacor is infusing at 0.1 mcg/kg/min. Liver enzymes seems to be trending up. Episodes are being closely monitored. Chest x-ray showed evidence of bilateral pleural effusions, left more so than right, hence I went ahead and performed left-sided thoracentesis on this patient. WBC count is elevated 18.2 hemoglobin 8.8 sodium is 124 potassium 4.8 BUN is 75 creatinine 1.26 liver enzymes are elevated with AST of 435 ALT 441 and alkaline phosphatase of 180 Objective - Vital Signs Vital signs: Vital Signs Temp 97.4 F L 05/10/24 12:00 Pulse 75 05/10/24 14:00 Resp 22 05/10/24 14:00 BP 99/69 05/09/24 22:00 Pulse Ox 95 05/10/24 14:00 FiO2 50 05/03/24 20:00 Intake & Output 05/09/24 05/10/24 05/10/24 18:59 06:59 18:59 Intake Total 808 756 884 Output Total 615 1200 250 Balance 193 -444 634 Weight 59.4 kg Intake: IV 338 276 184 0.9 PRESSURE BAG 78 36 24 CO/CI 20 Sodium Chloride 0.9% 1, 240 240 160 000 ml @ 30 mls/hr IV . Q24H [facility] Rx#:[id number] Oral 470 240 700 Tube Feeding 240 Output: Urine 615 1200 250 Straight 250 Uretheral (Palacios) 600 Other: Voiding Method Indwelling Catheter Bedside Commode Bedside Commode Bedpan Bedpan # Voids 1 # Bowel Movements 1 0 0 ABP, PAP, CO, CI - Last Documented Arterial Blood Pressure 102/62 Pulmonary Artery Pressure 39/22 Cardiac Output 2.4 Cardiac Index 1.5 - Exam General: Revealed 79-year-old female in no distress RESPIRATORY: Diminished breath sounds at the bases with minimal crackles no rhonchi no wheezes CARDIOVASCULAR: Distant S1-S2, no S3 gallop, no murmur GASTROINTESTINAL: Abdomen is soft nontender no rebound no guarding GENITOURINARY: Palacios present draining clear, yellow urine. Output overnight 30-75 mL per hour, 1485 mL in the last 24 hours INTEGUMENTARY: No rashes NEUROLOGIC: Alert oriented x 3 no gross focal deficit MUSKULOSKELETAL: No deformities and no limitation range of motion PSYCHIATRIC: Normal mood affect and no mental status examination INVASIVE LINES AND TUBES: Atrial epicardial pacemaker wires present, connected to generator, generator off. - Labs CBC & Chem 7: 05/10/24 04:35 05/10/24 12:32 Labs: Abnormal Lab Results - Last 24 Hours (Table) 05/09/24 05/09/24 05/09/24 Range/Units 10:51 16:32 21:59 WBC (3.8-10.6) k/uL RBC (3.80-5.40) m/uL Hgb (11.4-16.0) gm/dL Hct (34.0-46.0) % RDW (11.5-15.5) % Sodium (137-145) mmol/L Chloride (98-107) mmol/L Carbon Dioxide (22-30) mmol/L BUN (7-17) mg/dL Creatinine (0.52-1.04) mg/dL Glucose (74-99) mg/dL POC Glucose (mg/dL) 154 H 117 H (70-110) mg/dL AST (14-36) U/L ALT (4-34) U/L Alkaline Phosphatase (38-126) U/L Total Protein (6.3-8.2) g/dL Albumin (3.5-5.0) g/dL Procalcitonin 0.93 H (0.02-0.50) ng/mL 05/10/24 05/10/24 05/10/24 Range/Units 04:35 04:35 11:40 WBC 18.2 H (3.8-10.6) k/uL RBC 2.76 L (3.80-5.40) m/uL Hgb 8.8 L (11.4-16.0) gm/dL Hct 27.6 L (34.0-46.0) % RDW 21.3 H (11.5-15.5) % Sodium 123 L (137-145) mmol/L Chloride 94 L (98-107) mmol/L Carbon Dioxide 21 L (22-30) mmol/L BUN 75 H (7-17) mg/dL Creatinine 1.26 H (0.52-1.04) mg/dL Glucose 113 H (74-99) mg/dL POC Glucose (mg/dL) 156 H (70-110) mg/dL AST 435 H (14-36) U/L ALT 441 H (4-34) U/L Alkaline Phosphatase 180 H (38-126) U/L Total Protein 5.2 L (6.3-8.2) g/dL Albumin 3.0 L (3.5-5.0) g/dL Procalcitonin (0.02-0.50) ng/mL 05/10/24 Range/Units 12:32 WBC (3.8-10.6) k/uL RBC (3.80-5.40) m/uL Hgb (11.4-16.0) gm/dL Hct (34.0-46.0) % RDW (11.5-15.5) % Sodium 124 L (137-145) mmol/L Chloride (98-107) mmol/L Carbon Dioxide (22-30) mmol/L BUN (7-17) mg/dL Creatinine (0.52-1.04) mg/dL Glucose (74-99) mg/dL POC Glucose (mg/dL) (70-110) mg/dL AST (14-36) U/L ALT (4-34) U/L Alkaline Phosphatase (38-126) U/L Total Protein (6.3-8.2) g/dL Albumin (3.5-5.0) g/dL Procalcitonin (0.02-0.50) ng/mL Assessment and Plan Assessment: Impression:POD #7 aortic valve replacement using a 19 mm Inspiris pericardial bioprosthesis, mitral valve repair using a posterior annuloplasty band 26 mm annuloflex, exclusion of the left atrial appendage using a 35mm AtriClip, and transesophageal echocardiogram and epiaortic scanning. Severe aortic valve regurgitation, status post aortic valve replacement Moderate mitral valve regurgitation, status post mitral valve repair Mild to moderate tricuspid valve regurgitation Mild pulmonary hypertension Postoperative blood loss anemia and thrombocytopenia, expected given cardiopulmonary bypass and hemodilution Hypervolemic hyponatremia Transaminitis, felt to be from volume overload History of chronic heart failure with reduced ejection fraction, EF 40% Hypertension Chronic kidney disease stage III Iron deficiency anemia Paroxysmal atrial fibrillation with cardioversion in 2023 on Eliquis for anticoagulation status post permanent dual-chamber pacemaker, status post ligation of the left atrial appendage Embolic stroke with full recovery in 2016 Mild lung disease, preoperative FEV1 73% of predicted Lifelong non-smoker Recommendation: Continue medical therapy with low dose aspirin, Plavix and beta-pari. Continue oral amiodarone for atrial fibrillation prophylaxis. Patient underwent uneventful left-sided thoracentesis, 700 cc of serosanguineous fluid was removed Infectious disease is seeing on consultation for leukocytosis Nephrology is addressing hyponatremia and was given tolvaptan Continue ambulation as tolerated GI/DVT prophylaxis. Monitor I's and O's Will continue to follow Monitor daily x-rays of the chest Time with Patient: Less than 30
[2024-05-10] MEDS ORDERED: CEFEPIME 2 GM in SODIUM CHLORIDE 0.9% 100 ML IVPB SCH (16:00)
[2024-05-10 16:20] LABS: Glucose,Whole Blood 162 mg/dL (70-110)
[2024-05-10 18:39] LABS: Appearance,Urine Cloudy (Clear); Bacteria,Urine Many /hpf; Bilirubin,Urine Negative (Negative); Blood,Urine Large (Negative); Color,Urine Yellow; Glucose,Urine (UA) Negative (Negative); Ketones,Urine Negative (Negative); Leukocyte Esterase,Urine Large (Negative); Mucus,Urine Rare /hpf; Nitrite,Urine Negative (Negative); PH, Urine 5.5 (5.0-8.0); Protein,Urine 1+ (Negative); RBC,Urine >182 /hpf (0-5); Specific Gravity,Urine 1.017 (1.001-1.035); Squamous Epithelial Cell,Urine 1 /hpf (0-4); Urobilinogen,Urine <2.0 mg/dL (<2.0); WBC,Urine >182 /hpf (0-5)
--- NOTE | 2024-05-10 20:54 | P.PN ---
Progress Note - Text Progress Note Date: 05/10/24 - Chief Complaint Aortic valve replacement etc. - History of Present Illness This is a pleasant 79year-old patient, follows with Dr. Thayer. 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 Kimbrough macular degeneration. Patient yesterday underwent arctic valve replacement with a bioprosthesis, mitral valve repair with annuloplasty, exclusion of left atrial appendage using a clip,. Today patient is up in a chair. Extubated. Drips include IV insulin, milrinone, amiodarone. Plan to being switched over to p.o. Paced rhythm. Has to chest tubes mediastinal. Clear liquid diet. Doing about 1000 cc on incentive spirometry. May 05: Sitting up in a recliner. Slight shortness of breath. On IV milrinone and IV heparin drip. Paced rhythm. [address] Eating fair. Been taken off insulin drip. May 06: Saw this afternoon. Up in a recliner. Did transfer from the bed to the chair. Some shortness of breath. A-fib. Given further IV loading IV amiodarone. Remains on IV milrinone. Chest tubes are out. Palacios catheter in place. Eating fair. Sodium a bit worse. Received IV Lasix and albumin. May 07: Up in a recliner. . Palacios catheter remains in place. Tired. Eating fair. Blood pressure remains lower side.-IV milrinone. On hydralazine for afterload reduction. 5 L nasal cannula. Received IV Lasix 20 mg today. Remains in atrial fibrillation. Chest x-ray shows pleural effusion/vascular congestion. May 08: ICU. Up in a recliner. Some shortness of breath. Palacios catheter. Patient switched to oral amiodarone. On 4 L nasal cannula. Eating some. Had a bowel movement. Patient been taken off IV milrinone. Remains in A-fib. Tired. LFTs have bumped up.-Note patient is on amiodarone. To switch to p.o. Could be ischemic hepatitis component. [IV amiodarone discontinued yesterday] May 09: ICU. In a recliner. Remains a bit short of breath. Tired. Eating some. Has been in and out of A-fib with paced rhythm. Remains of IV milrinone. On 4.5 L nasal cannula. Chest x-ray film personally reviewed by me-some scattered infiltrates. Urea added by nephrology for hyponatremia. May 10: ICU. Up in the recliner. Remains tired a bit short of breath. Had a BM yesterday. Patient getting IV albumin. Back on IV milrinone. Since patient is in and out of atrial fibrillation. Further increase in LFTs. Sodium down to 124. 1 dose of tolvaptan given per nephrology. Did text down from cardiothoracic team. Amiodarone should be held given LFTs much elevated. Probable UTI-IV cefepime started by ID. Hydralazine held today Active Medications Acetaminophen (Acetaminophen Tab 325 Mg Tab) 650 mg PO Q4HR PRN PRN Reason: Fever And/ Or Mild Pain (1-3) Last Admin: 05/09/24 22:59 Dose: 650 mg Albuterol/Ipratropium (Ipratropium-Albuterol 3 Ml Neb) 3 ml INHALATION RT-Q2H PRN PRN Reason: Shortness Of Breath Or Wheezing Last Admin: 05/08/24 01:40 Dose: 3 ml Albuterol/Ipratropium (Ipratropium-Albuterol 3 Ml Neb) 3 ml INHALATION RT-QID [facility] Last Admin: 05/10/24 17:05 Dose: 3 ml Amiodarone HCl (Amiodarone 200 Mg Tab) 400 mg PO BID [facility] Last Admin: 05/10/24 08:23 Dose: 400 mg Ascorbic Acid (Ascorbic Acid 500 Mg Tab) 500 mg PO DAILY [facility] Last Admin: 05/10/24 08:21 Dose: 500 mg Aspirin (Aspirin 81 Mg) 81 mg PO DAILY [facility] Last Admin: 05/10/24 08:22 Dose: 81 mg Benzocaine/Menthol (Benzocaine/Menthol Lozeng 1 Each Lozenge) 1 each MUCOUS MEM Q2H PRN PRN Reason: Sore Throat Last Admin: 05/10/24 18:25 Dose: 1 each Bisacodyl (Bisacodyl 10 Mg Supp) 10 mg RECTAL DAILY PRN PRN Reason: Constipation Cholecalciferol (Cholecalciferol 25 Mcg (1000 Iu) Tablet) 75 mcg PO DAILY [facility] Last Admin: 05/10/24 08:21 Dose: 75 mcg Clopidogrel Bisulfate (Clopidogrel 75 Mg Tab) 75 mg PO DAILY [facility] Last Admin: 05/10/24 08:22 Dose: 75 mg Dextrose/Water (Dextrose 50% Syringe 50 Ml) 25 ml IVP PER PROTOCOL PRN; Protocol PRN Reason: Hypoglycemia Dextrose/Water (Dextrose 50% Syringe 50 Ml) 50 ml IVP PER PROTOCOL PRN; Protocol PRN Reason: Hypoglycemia Last Admin: 05/03/24 14:31 Dose: 50 ml Heparin Sodium (Porcine) (Heparin Sodium,Porcine 5,000 Unit/Ml 1 Ml Vial) 5,000 unit SQ Q8HR [facility] Last Admin: 05/10/24 16:29 Dose: 5,000 unit Hydralazine HCl (Hydralazine Hcl 50 Mg Tab) 50 mg PO Q8HR [facility] Last Admin: 05/10/24 15:58 Dose: Not Given Calcium Gluconate/Sodium (Chloride 2 gm/ IV Solution) 100 mls @ 100 mls/hr IVPB ONCE PRN PRN Reason: Ionized Calcium less than 4.4 Stop: 06/02/24 13:59 Milrinone Lactate/Dextrose 20 (mg/ IV Solution) 100 mls @ 1.791 mls/hr IV .Q24H [facility] Last Admin: 05/10/24 16:27 Dose: Not Given Cefepime HCl 1 gm/ Sodium (Chloride) 50 mls @ 12.5 mls/hr IVPB Q12H [facility] Last Admin: 05/10/24 14:15 Dose: 12.5 mls/hr Insulin Human Lispro (Insulin Lispro (Humalog) 100 Unit/Ml 10 Ml Vl) 0 unit SQ ACHS [facility]; Protocol Last Admin: 05/10/24 16:29 Dose: 1 unit Lactobacillus Acidophilus (Lactobacillus Acidophilus/Pect 1 Each Capsule) 1 each PO BID [facility] Last Admin: 05/10/24 08:22 Dose: 1 each Melatonin (Melatonin 3 Mg Tablet) 6 mg PO HS [facility] Last Admin: 05/09/24 22:04 Dose: 6 mg Metoclopramide HCl (Metoclopramide 5 Mg/Ml 2 Ml Vial) 10 mg IVP Q4H PRN PRN Reason: Nausea And Vomiting Last Admin: 05/07/24 07:04 Dose: 10 mg Metoprolol Tartrate (Metoprolol Tartrate 25 Mg Tab) 25 mg PO BID [facility] Last Admin: 05/10/24 08:30 Dose: 25 mg Miscellaneous Information (Potassium Replacement Protocol 1 Each Misc) 1 each MISCELLANE DAILY PRN; Protocol PRN Reason: Per Protocol Miscellaneous Information (Magnesium Replacement Protocol 1 Each Misc) 1 each MISCELLANE DAILY PRN; Protocol PRN Reason: Per Protocol Multivitamins/Minerals (Vit A,C & H-Cjzqcm-Voshwlaw 1 Each Tab) 1 each PO BID [facility] Last Admin: 05/10/24 08:24 Dose: 1 each Ondansetron HCl (Ondansetron 4 Mg/2 Ml Vial) 4 mg IVP Q6HR PRN PRN Reason: Nausea And Vomiting Last Admin: 05/10/24 03:25 Dose: 4 mg Pantoprazole Sodium (Pantoprazole 40 Mg Tablet) 40 mg PO AC-BRKFST [facility] Last Admin: 05/10/24 06:48 Dose: 40 mg Senna/Docusate Sodium (Sennosides-Docusate Sodium 1 Each Tab) 2 each PO HS [facility] Last Admin: 05/09/24 22:04 Dose: 2 each Sodium Chloride (Sodium Chloride 0.9% Flush 10 Ml Syringe) 10 ml IV BID [facility] Last Admin: 05/10/24 08:24 Dose: 10 ml Urea (Urea 15 Gm Powd.Pack) 15 gm PO BID [facility] Last Admin: 05/10/24 08:24 Dose: 15 gm Social history: Lives alone. Denies any alcohol or smoking history. Physical examination: VITAL SIGNS: 97.6, 81, 22, 94/56, 92% 5 L GENERAL:, up in a recliner, tired EYES: Pupils equal. Conjunctiva clifford l. HEENT: External appearance of nose and ears normal, oral cavity grossly normal. Decreased hearing NECK: JVD unable to assess; masses not palpable. HEART: Heart sounds irregular; Venodyne boots LUNGS: Respiratory rate increased; i diminished breath sounds. ABDOMEN: Soft, nontender, liver spleen not palpable, no masses palpable. Palacios catheter in place PSYCH: Alert and oriented x3; mood and affect, tired. MUSCULOSKELETAL:No Clubbing/cyanosis;muscles-grossly intact. OA INVESTIGATIONS, reviewed in the clinical context: 2D echo: EF 45 to 50%. Atypical septal motion. Both atria enlarged. Bioprosthetic aortic valve stable.. No pericardial effusion May 10: White count 18.2 hemoglobin 8.8 platelets 160 sodium 124 potassium 4.8 BUN 75 creatinine 1.26 AST 435 ALT 441 CRP 17.2. UA positive for leukoesterase WBC May 09: White count 17 hemoglobin 9.3 sodium 127 potassium 5 BUN 43 creatinine 1.08 ABG: pH 7.39 pO2 less than 30 May 08: White count 15.1 hemoglobin 9 platelets 139 sodium 128 potassium 4.9 creatinine 1.01 AST 325 ALT 218 May 07: White count 11.9 hemoglobin 9.2 sodium 126 potassium 4.4 BUN 33 creatinine 0.99 May 06: White count 14.1 hemoglobin 9.3 platelets 95 sodium 126 potassium 4.9 BUN 29 creatinine 0.90 May 05: White count 12.4 hemoglobin 9.4 platelets 93 potassium 4.6 creatinine 0.74 May 04, 2024: White count 8.7 hemoglobin 9.5 platelets 64 sodium 137 potassium 5.6 BUN 19 creatinine 0.87 magnesium 2.5 iron 16 TIBC 154% saturation 10.3 transferrin 110 ferritin 176 Chest x-ray film personally reviewed by me-some venous prominence. Pacemaker Previous April 27, 2024: Hemoglobin 14.5 platelets 210 2D echocardiogram [April 29, 2023] EF 40%. Moderate MR. Severe TR. Severe pulmonary hypertension. Severe AR. Cardiac catheterization [April 2022] mild nonobstructive CAD Assessment plan: -aorctic valve replacement with a bioprosthesis, mitral valve repair with annuloplasty, exclusion of left atrial appendage using a clip, on May 03, [address] Hammond [Prior moderate mitral regurgitation, severe tricuspid regurgitation, severe aortic regurgitation] 2 chest tubes-removed -Persistent atrial fibrillation., With patient being in and out of atrial fibrillation Lopressor. Cordarone -Acute hepatitis: Possibly combination of hypotension and being on amiodarone. Amiodarone should be held if okay with cardiothoracic team informed - -Acute hypoxic respiratory failure secondary to pulmonary edema/pleural effusion: Slow to respond Currently on4.5 nasal cannula -Acute postprocedure blood loss anemia expected from surgery Follow H&H -Dilutional thrombocytopenia. Preoperative platelets 210: Resolved -Left pleural effusion, marked with ultrasound Pulmonary following. Possible thoracentesis -Hyperkalemia: Corrected Calcium gluconate, insulin given. -Hyponatremia likely hypervolemic, worsening Follow fluid status closely. Encourage oral intake. Tolvaptan given. Being followed by nephrology -Hypoalbuminemia, multifactorial: Received IV albumin -Acute UTI with cystitis secondary to Palacios catheter IV cefepime -Hard of hearing -Acute on chronic congestive heart failure exacerbation from mild systolic dysfunction nonischemic cardiomyopathy EF 45 to 50% Received IV Lasix -Severe secondary pulmonary hypertension -Hypotension, cardiac On IV milrinone-discontinue -Primary osteoarthritis Tylenol as needed -Colonic diverticulosis, asymptomatic -Chronic kidney disease stage IIIa, baseline creatinine from 1 2-1.3, secondary nephrosclerosis Follows with Dr. Kimbrough outpatient -Pacemaker 2017, for sick sinus syndrome -Full code Follow liver functions. Other medications to continue. Thank you Dr. Hammond Past Medical History Past Medical History: Atrial Fibrillation, Heart Failure, CVA/TIA, Eye Disorder, Hearing Disorder / Deafness, Hyperlipidemia, Hypertension, Osteoarthritis (OA), Renal Disease, Skin Disorder Additional Past Medical History / Comment(s): SOB in the evening and through the night has improved with med changes. Tinnitus, bilateral hearing aid use. Diverticular disease, hemorrhoids. Hx kidney stones. hx Anemia. 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 Stage 3 kidney disease. Macular degeneration left eye. Small hiatal hernia. Reddness to cheeks, at times feels tingling. watching shadow by liver. History of Any Multi-Drug Resistant Organisms: None Reported Past Surgical History: Adenoidectomy, Appendectomy, Section, Heart Catheterization, Pacemaker, Tonsillectomy Additional Past Surgical History / Comment(s): SINUS SURGERY, section X3, CHRISTY, colonoscopy. Past Anesthesia/Blood Transfusion Reactions: No Reported Reaction Additional Past Anesthesia/Blood Transfusion Reaction / Comm: Hx blood transfusion with no issues 50 yrs ago. Type of Cardiac Device: Permanent Pacemaker Device Placement Date:: 01/2017 Left chest Smoking Status: Never smoker
--- NOTE | 2024-05-10 22:57 | P.CONS ---
History of Present Illness - Reason for Consult Consult date: 05/10/24 Leukocytosis Requesting physician: Wil Aviles - Chief Complaint Shortness of breath x days - History of Present Illness Patient is a 79-year-old female with a past medical history significant for Atrial Fibrillation, Heart Failure, CVA/TIA, Eye Disorder, Hear ing Disorder / Deafness, Hyperlipidemia, Hypertension, Osteoarthritis (OA), Renal Disease, Skin Disorder electively admitted to the hospital 7 days ago after the patient did have aortic valve replacement mitral valve repair and exclusion of the left atrial appendage is [employer] patient subsequently has been in the ICU patient did have a low-grade fever of 99.7 on 05/05/2022 as well as 05/06/2022 and 05/08/2022 and noticed to have worsening of the white count which is up to 18.2 today that has prompted this consultation patient currently denies having any headache or URI symptoms denies any chest pain shortness with occasional cough some nausea but no vomiting no abdominal pain or any diarrhea patient did have Palacios catheter. Discussed yesterday patient seem to have some retention and the nursing staff mention with straight cath she was noticed to have slightly cloudy urine with some sediment however no urine sample was sent patient did have a chest x-ray this morning with decreased effusion no evidence of pneumothorax no focal consolidation Review of Systems Positive point and negatives has been mentioned in the HPI, complete review of systems was performed and all other systems are negative Past Medical History Past Medical History: Atrial Fibrillation, Heart Failure, CVA/TIA, Eye Disorder, Hearing Disorder / Deafness, Hyperlipidemia, Hypertension, Osteoarthritis (OA), Renal Disease, Skin Disorder Additional Past Medical History / Comment(s): SOB in the evening and through the night has improved with med changes. Tinnitus, bilateral hearing aid use. Diverticular disease, hemorrhoids. Hx kidney stones. hx Anemia. 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 Stage 3 kidney disease. Macular degeneration left eye. Small hiatal hernia. Reddness to cheeks, at times feels tingling. watching shadow by liver. History of Any Multi-Drug Resistant Organisms: None Reported Past Surgical History: Adenoidectomy, Appendectomy, Section, Heart Catheterization, Pacemaker, Tonsillectomy Additional Past Surgical History / Comment(s): SINUS SURGERY, section X3, CHRISTY, colonoscopy. Past Anesthesia/Blood Transfusion Reactions: No Reported Reaction Additional Past Anesthesia/Blood Transfusion Reaction / Comm: Hx blood transfusion with no issues 50 yrs ago. Type of Cardiac Device: Permanent Pacemaker Device Placement Date:: 01/2017 Left chest Smoking Status: Never smoker - Past Family History Sister(s) Family Medical History: Cancer Brother(s) Family Medical History: Cancer, Coronary Artery Disease (CAD) Father Family Medical History: Cancer Additional Family Medical History / Comment(s): Prostate cancer with mets to bones, colon. Mother Family Medical History: Renal Disease Additional Family Medical History / Comment(s): kidney disease Medications and Allergies Home Medications Medication Instructions Recorded Confirmed Type L.acidoph,Paracasei, B.lactis 1 cap PO BID 04/25/22 05/03/24 History [Probiotic] Vit C/E/Zn/Coppr/Lutein/Zeaxan 1 cap PO BID 04/25/22 04/27/24 History [Preservision Areds 2 Softgel] Illumineyes 1 tab PO DAILY 12/30/23 04/27/24 History Magnesium(Unknown Dose) 800 mg PO DIRECTED PRN 12/30/23 05/03/24 History Vitamin B-6/B-12(25mg/100mcg) 1 tab PO Q48H 12/30/23 04/27/24 History Vitamin C 650mg 1 tab PO DAILY 12/30/23 04/27/24 History Vitamin D3 40mcg 80 mcg PO BID 12/30/23 04/27/24 History Metoprolol Tartrate [Lopressor] 25 mg PO TID@0800,1600,2300 #180 01/02/24 05/03/24 Rx tab Amiodarone [Cordarone] 100 mg PO AC-LUNCH 01/06/24 05/03/24 History lisinopriL [Zestril] 2.5 mg PO DAILY 02/03/24 05/03/24 History Furosemide [Lasix] 40 mg PO DAILY PRN 02/23/24 05/03/24 History Apixaban [Eliquis] 5 mg PO BID 02/27/24 05/03/24 History Allergies Allergy/AdvReac Type Severity Reaction Status Date / Time strawberry Allergy Itching Verified 05/03/24 05:51 mold AdvReac sinuses Verified 05/03/24 05:51 [id number] Reductase AdvReac muscle Verified 05/03/24 05:51 Inhibitor aches and lethargy wheat AdvReac stomach Verified 05/03/24 05:51 bloats and lack of energy Yeast AdvReac sore Verified 05/03/24 05:51 throat,sinuses fungus AdvReac sinuses Uncoded 05/03/24 05:51 Physical Exam Vitals: Vital Signs Temp Pulse Resp BP Pulse Ox 05/10/24 11:00 72 22 96 05/10/24 10:00 70 14 97 05/10/24 09:00 71 22 96 05/10/24 08:00 97.2 F L 80 24 95 05/10/24 07:00 78 20 95 05/10/24 06:00 70 18 97 05/10/24 05:00 70 14 94 L 05/10/24 04:00 97.1 F L 70 20 97 05/10/24 03:00 71 17 93 L 05/10/24 02:00 71 11 L 93 L 05/10/24 01:00 70 12 94 L 05/10/24 00:00 97.2 F L 77 19 94 L 05/09/24 23:00 80 20 94 L 05/09/24 22:51 80 14 94 L 05/09/24 22:00 69 16 99/69 93 L 05/09/24 21:00 77 16 93 L 05/09/24 20:00 77 18 93 L 05/09/24 19:00 88 17 94 L 05/09/24 18:00 86 10 L 92 L 05/09/24 17:00 84 17 94 L 05/09/24 16:00 80 21 93 L 05/09/24 15:52 74 05/09/24 15:43 72 05/09/24 15:00 80 32 H 94 L 05/09/24 14:00 80 13 94 L 05/09/24 13:00 76 16 98 05/09/24 12:00 97.9 F 78 19 96 05/09/24 11:59 73 05/09/24 11:48 72 Intake and Output 05/09/24 05/10/24 05/10/24 22:59 06:59 14:59 Intake Total 774 424 115 Output Total 130 1200 250 Balance 644 -776 -135 Intake: IV 184 184 115 0.9 PRESSURE BAG 24 24 15 Sodium Chloride 0.9% 1, 160 160 100 000 ml @ 30 mls/hr IV . Q24H [facility] Rx#:[id number] Oral 590 Tube Feeding 240 Output: Urine 130 1200 250 Straight 250 Uretheral (Palacios) 600 Other: Voiding Method Bedside Commode Bedside Commode Bedside Commode Bedpan Bedpan Bedpan # Voids 1 # Bowel Movements 1 0 0 Weight 59.4 kg ABP, PAP, CO, CI - Last 8 Hours Arterial Blood Pressure 109/54 Arterial Blood Pressure 93/58 Arterial Blood Pressure 116/75 Arterial Blood Pressure 96/56 Arterial Blood Pressure 107/60 Arterial Blood Pressure 119/69 Arterial Blood Pressure 112/66 Arterial Blood Pressure 108/69 Cardiac Output 2.4 Cardiac Index 1.5 GENERAL DESCRIPTION: Elderly female up in the chair, no distress. No tachypnea or accessory muscle of respiration use. HEENT: Shows Pallor , no scleral icterus. Oral mucous membrane is dry. No pharyngeal erythema or thrush NECK: Trachea central, no thyromegaly. LUNGS: Unlabored breathing. Clear to auscultation anteriorly. No wheeze or crackle. HEART: S1, S2, regular rate and rhythm. No loud murmur ABDOMEN: Soft, no tenderness , guarding or rigidity, no organomegaly EXTREMITIES: No edema of feet. SKIN: No rash, no masses palpable. NEUROLOGICAL: The patient is awake, alert, oriented x3, mood and affect normal. Results CBC & Chem 7: 05/10/24 04:35 05/10/24 12:32 Labs: Abnormal Lab Results - Last 24 Hours (Table) 05/09/24 05/09/24 05/10/24 Range/Units 16:32 21:59 04:35 WBC 18.2 H (3.8-10.6) k/uL RBC 2.76 L (3.80-5.40) m/uL Hgb 8.8 L (11.4-16.0) gm/dL Hct 27.6 L (34.0-46.0) % RDW 21.3 H (11.5-15.5) % Sodium (137-145) mmol/L Chloride (98-107) mmol/L Carbon Dioxide (22-30) mmol/L BUN (7-17) mg/dL Creatinine (0.52-1.04) mg/dL Glucose (74-99) mg/dL POC Glucose (mg/dL) 154 H 117 H (70-110) mg/dL AST (14-36) U/L ALT (4-34) U/L Alkaline Phosphatase (38-126) U/L Total Protein (6.3-8.2) g/dL Albumin (3.5-5.0) g/dL 05/10/24 Range/Units 04:35 WBC (3.8-10.6) k/uL RBC (3.80-5.40) m/uL Hgb (11.4-16.0) gm/dL Hct (34.0-46.0) % RDW (11.5-15.5) % Sodium 123 L (137-145) mmol/L Chloride 94 L (98-107) mmol/L Carbon Dioxide 21 L (22-30) mmol/L BUN 75 H (7-17) mg/dL Creatinine 1.26 H (0.52-1.04) mg/dL Glucose 113 H (74-99) mg/dL POC Glucose (mg/dL) (70-110) mg/dL AST 435 H (14-36) U/L ALT 441 H (4-34) U/L Alkaline Phosphatase 180 H (38-126) U/L Total Protein 5.2 L (6.3-8.2) g/dL Albumin 3.0 L (3.5-5.0) g/dL Assessment and Plan (1) Leukocytosis Current Visit: Yes Status: Acute Code(s): D72.829 - ELEVATED WHITE BLOOD CELL COUNT, UNSPECIFIED SNOMED Code(s): 908500109 (2) UTI (urinary tract infection) Current Visit: Yes Status: Acute Code(s): N39.0 - URINARY TRACT INFECTION, SITE NOT SPECIFIED SNOMED Code(s): 88916022 Plan: 1patient with elevated white count in this patient electively admitted to hospital and is status post aortic valve replacement and mitral valve repair she did have urinary catheter postsurgery which has been discontinued yesterday now with cloudy urine difficulty urination ID clinic suspicious for urinary source to be responsible for this elevated white count and need to be treated aggressively with recent cardiac procedure 2-obtain blood cultures as well as check a UA and a culture 3-we will empirically add cefepime while waiting for the workup to be completed Daughter at the bedside question answered We will follow on clinical condition and cultures to further adjust medication if needed Thank you for this consultation we will follow the patient along with you Dictation was produced using e[employer]ift dictation software. please excuse any grammatical, word or spelling errors. Time with Patient: Greater than 30
[2024-05-11 00:20] LABS: Glucose,Whole Blood 119 mg/dL (70-110)
[2024-05-11 06:12] LABS: Glucose,Whole Blood 131 mg/dL (70-110)
[2024-05-11 06:30] LABS: ALT 446 U/L (4-34); AST 363 U/L (14-36); African American GFR (CKD) 50 (>60 ml/min/1.73 sqM); Albumin 3.1 g/dL (3.5-5.0); Alkaline Phosphatase 162 U/L (38-126); Anion Gap 8 mmol/L; Blood Urea Nitrogen 93 mg/dL (7-17); Calcium 8.9 mg/dL (8.4-10.2); Carbon Dioxide 21 mmol/L (22-30); Chloride 94 mmol/L (98-107); Glucose 116 mg/dL (74-99); Non-African American GFR(CKD) 43 (>60 ml/min/1.73 sqM); Potassium 5.3 mmol/L (3.5-5.1); Sodium 123 mmol/L (137-145); Total Bilirubin 1.2 mg/dL (0.2-1.3); Total Protein 5.3 g/dL (6.3-8.2)
[2024-05-11 07:24] LABS: Anisocytosis Moderate; HCT 30.1 % (34.0-46.0); HGB 9.5 gm/dL (11.4-16.0); Hypochromasia Slight; MCHC 31.4 g/dL (31.0-37.0); Macrocytosis Moderate; Mean Platelet Volume 10.6; Platelet Count 190 k/uL (150-450); Poikilocytosis Slight; RBC 2.95 m/uL (3.80-5.40); RDW 23.5 % (11.5-15.5)
--- NOTE | 2024-05-11 07:30 | XR ---
EXAMINATION TYPE: XR chest 1V portable DATE OF EXAM: 05/11/2024 5:36 AM COMPARISON: Chest radiograph from one day prior. CLINICAL INDICATION: Female, 79 years old with history of Postop cardiac surgery; [facility] TECHNIQUE: XR chest 1V portable Frontal view of the chest. FINDINGS: Lungs/Pleura: There is no evidence of pleural effusion, focal consolidation, or pneumothorax. Pulmonary vascularity: Unremarkable. Heart/mediastinum: Cardiomediastinal silhouette is unremarkable. Atherosclerotic calcifications are seen in the aorta. Post aortic valve repair changes. Left atrial appendage occlusion device is presen t. Two lead cardiac conduction device overlying the left hemithorax with lead tips projecting over th e right ventricle and right atrium. Musculoskeletal: No acute osseous pathology. Midline sternotomy wires are noted. Other findings: None IMPRESSION: Small bilateral pleural effusions are greater on left with cardiomegaly. [facility], , 05/11/2024 7:27 AM
[2024-05-11] MEDS: hydrALAZINE HCL 25 MG TAB PO SCH (08:47)
--- NOTE | 2024-05-11 09:16 | P.PN ---
Subjective Progress Note Date: 05/11/24 Principal diagnosis: Severe aortic valve regurgitation, moderate mitral valve regurgitation, mild to moderate tricuspid valve regurgitation, and mild pulmonary hypertension. Previo us medical history of moderate left ventricular dysfunction, chronic heart failure with reduced ejection fraction, hypertension, chronic kidney disease stage III, iron deficiency anemia, paroxysmal atrial fibrillation with cardioversion in 2023 on Eliquis for anticoagulation status post permanent dual- chamber pacemaker, embolic stroke with full recovery, hard of hearing, osteoarthritis, mild lung disease, COVID in 2021, and lifelong non-smoker. POD #8 aortic valve replacement using a 19 mm Inspiris pericardial bioprosthesis, mitral valve repair using a posterior annuloplasty band 26 mm annuloflex, exclusion of the left atrial appendage using a 35mm AtriClip, and transesophageal echocardiogram and epiaortic scanning. Postoperative blood loss anemia and thrombocytopenia, expected given car diopulmonary bypass and hemodilution Hypervolemic hyponatremia Transaminitis, felt to be from volume overload Leukocytosis, probable urinary tract infection The patient was seen and examined sitting up in recliner in the intensive care unit in no acute distress. She denies significant pain, complains of shortness of breath when ambulating with staff. Currently in hold A-fib, blood pressure r emains marginal although mean arterial pressures remain in the 60-80s. Continues on IV Primacor. IV Lasix was ordered yesterday although not given due to bump in BUN. This morning sodium is 123, BUN is 93, creatinine 1.21, potassium 5.3. Currently on Ure-Na, will defer to nephrology for Lasix, Samsca dose. Patient is also continued to have leukocytosis, infectious disease was consulted, patient placed on cefepime for possible UTI, urinalysis demonstrated large leukocyte esterase with greater than 182 WBCs but negative nitrites, culture pending. Procalcitonin and CRP elevated. Patient did have some difficulty voiding and needing straight catheterization yesterday, however since yesterday afternoon she has been able to void on her own. Continues on amiodarone for A-fib. Continues on hydralazine for afterload reduction although patient has not received a dose since Friday evening due to systolic blood pressure. Remains on 2 L nasal cannula with oxygen saturation in the mid 90s, p oor incentive spirometry effort. Patient underwent left-sided thoracentesis yesterday with removal of 700 mL of fluid by Dr. Marinelli. Left brachial arterial line remains. Chest x-ray, lab work reviewed. Ambulatory in the hallway with nursing staff. No other new concerns. Objective - Vital Signs Vital signs: Vital Signs Temp 97.0 F L 05/11/24 04:00 Pulse 69 05/11/24 08:06 Resp 16 05/11/24 07:00 BP 99/69 05/09/24 22:00 Pulse Ox 92 L 05/11/24 07:00 FiO2 50 05/03/24 20:00 Intake & Output 05/10/24 05/11/24 05/11/24 18:59 06:59 18:59 Intake Total 1099 313 23 Output Total 700 900 0 Balance 399 -587 23 Weight 60.2 kg Intake: IV 399 313 23 0.9 PRESSURE BAG 39 33 3 Albumin Human 25% 50 ml 50 In Empty Bag 1 bag @ 50 mls/hr IVPB ONCE ONE Rx#: [id number] Cefepime 1 gm In Sodium 50 Chloride 0.9% 50 ml @ 12. 5 mls/hr IVPB Q12H [facility] Rx #:[id number] Cefepime 2 gm In Sodium 100 Chloride 0.9% 100 ml @ 25 mls/hr IVPB Q8HR [facility] Rx# :[id number] Sodium Chloride 0.9% 1, 260 180 20 000 ml @ 30 mls/hr IV . Q24H [facility] Rx#:[id number] Oral 700 Output: Urine 700 900 0 Straight 250 Other: Voiding Method Bedside Commode Bedside Commode Bedpan # Bowel Movements 0 0 0 ABP, PAP, CO, CI - Last Documented Arterial Blood Pressure 101/61 Pulmonary Artery Pressure 39/22 Cardiac Output 2.4 Cardiac Index 1.5 - Exam CONSTITUTIONAL: Appears comfortable, cooperative, no acute distress RESPIRATORY: Lungs sounds diminished in the bases bilaterally. Respirations even, nonlabored. Currently on 2 L nasal cannula with oxygen saturation 94%. Able to achieve 750 mL on incentive spirometry. Strong cough. CARDIOVASCULAR: S1, S2 present. Irregular rate and rhythm, controlled A-fib on telemetry. Sternum stable. Palpable peripheral pulses bilaterally. Trace bilateral upper extremity and thigh edema present. No calf pain or tenderness noted. Heart hugger in place with patient demonstrating appropriate use. Antiembolism stockings, SCDs present. GASTROINTESTINAL: Abdomen soft, nontender, nondistended. Active bowel sounds present 4 quadrants. Tolerating diet. Positive bowel movement 05/09 GENITOURINARY: Continues to void. Output 1600 mL in the last 24 hours INTEGUMENTARY: Skin is warm and dry with evidence of good perfusion. Anterior chest incision well approximated and covered with dry intact dressing NEUROLOGIC: Cranial nerves II through XII intact MUSKULOSKELETAL: Able to move all extremities, strength equal bilaterally, gait normal PSYCHIATRIC: Alert and oriented to person place and time, appropriate affect, intact judgment and insight INVASIVE LINES AND TUBES: Atrial epicardial pacemaker wires present, grounded. Left brachial arterial line present - Allied health notes Allied health notes reviewed: nursing - Labs CBC & Chem 7: 05/11/24 06:00 05/11/24 06:00 Labs: Abnormal Lab Results - Last 24 Hours (Table) 05/09/24 05/10/24 05/10/24 Range/Units 10:51 11:40 12:32 WBC (3.8-10.6) k/uL RBC (3.80-5.40) m/uL Hgb (11.4-16.0) gm/dL Hct (34.0-46.0) % MCV (80.0-100.0) fL RDW (11.5-15.5) % Sodium 124 L (137-145) mmol/L Potassium (3.5-5.1) mmol/L Chloride (98-107) mmol/L Carbon Dioxide (22-30) mmol/L BUN (7-17) mg/dL Creatinine (0.52-1.04) mg/dL Glucose (74-99) mg/dL POC Glucose (mg/dL) 156 H (70-110) mg/dL AST (14-36) U/L ALT (4-34) U/L Alkaline Phosphatase (38-126) U/L C-Reactive Protein (<1.0) mg/dL Total Protein (6.3-8.2) g/dL Albumin (3.5-5.0) g/dL Procalcitonin 0.93 H (0.02-0.50) ng/mL Urine Appearance (Clear) Urine Protein (Negative) Urine Blood (Negative) Ur Leukocyte Esterase (Negative) Urine RBC (0-5) /hpf Urine WBC (0-5) /hpf Urine WBC Clumps (None) /hpf Urine Bacteria (None) /hpf Urine Mucus (None) /hpf 05/10/24 05/10/24 05/10/24 Range/Units 13:57 13:57 16:18 WBC (3.8-10.6) k/uL RBC (3.80-5.40) m/uL Hgb (11.4-16.0) gm/dL Hct (34.0-46.0) % MCV (80.0-100.0) fL RDW (11.5-15.5) % Sodium (137-145) mmol/L Potassium (3.5-5.1) mmol/L Chloride (98-107) mmol/L Carbon Dioxide (22-30) mmol/L BUN (7-17) mg/dL Creatinine (0.52-1.04) mg/dL Glucose (74-99) mg/dL POC Glucose (mg/dL) 162 H (70-110) mg/dL AST (14-36) U/L ALT (4-34) U/L Alkaline Phosphatase (38-126) U/L C-Reactive Protein 17.2 H (<1.0) mg/dL Total Protein (6.3-8.2) g/dL Albumin (3.5-5.0) g/dL Procalcitonin 1.06 H (0.02-0.50) ng/mL Urine Appearance (Clear) Urine Protein (Negative) Urine Blood (Negative) Ur Leukocyte Esterase (Negative) Urine RBC (0-5) /hpf Urine WBC (0-5) /hpf Urine WBC Clumps (None) /hpf Urine Bacteria (None) /hpf Urine Mucus (None) /hpf 05/10/24 05/11/24 05/11/24 Range/Units 18:20 00:18 06:00 WBC (3.8-10.6) k/uL RBC (3.80-5.40) m/uL Hgb (11.4-16.0) gm/dL Hct (34.0-46.0) % MCV (80.0-100.0) fL RDW (11.5-15.5) % Sodium 123 L (137-145) mmol/L Potassium 5.3 H (3.5-5.1) mmol/L Chloride 94 L (98-107) mmol/L Carbon Dioxide 21 L (22-30) mmol/L BUN 93 H (7-17) mg/dL Creatinine 1.21 H (0.52-1.04) mg/dL Glucose 116 H (74-99) mg/dL POC Glucose (mg/dL) 119 H (70-110) mg/dL AST 363 H (14-36) U/L ALT 446 H (4-34) U/L Alkaline Phosphatase 162 H (38-126) U/L C-Reactive Protein (<1.0) mg/dL Total Protein 5.3 L (6.3-8.2) g/dL Albumin 3.1 L (3.5-5.0) g/dL Procalcitonin (0.02-0.50) ng/mL Urine Appearance Cloudy H (Clear) Urine Protein 1+ H (Negative) Urine Blood Large H (Negative) Ur Leukocyte Esterase Large H (Negative) Urine RBC >182 H (0-5) /hpf Urine WBC >182 H (0-5) /hpf Urine WBC Clumps Many H (None) /hpf Urine Bacteria Many H (None) /hpf Urine Mucus Rare H (None) /hpf 05/11/24 05/11/24 Range/Units 06:00 06:11 WBC 15.0 H (3.8-10.6) k/uL RBC 2.95 L (3.80-5.40) m/uL Hgb 9.5 L (11.4-16.0) gm/dL Hct 30.1 L (34.0-46.0) % MCV 102.0 H (80.0-100.0) fL RDW 23.5 H (11.5-15.5) % Sodium (137-145) mmol/L Potassium (3.5-5.1) mmol/L Chloride (98-107) mmol/L Carbon Dioxide (22-30) mmol/L BUN (7-17) mg/dL Creatinine (0.52-1.04) mg/dL Glucose (74-99) mg/dL POC Glucose (mg/dL) 131 H (70-110) mg/dL AST (14-36) U/L ALT (4-34) U/L Alkaline Phosphatase (38-126) U/L C-Reactive Protein (<1.0) mg/dL Total Protein (6.3-8.2) g/dL Albumin (3.5-5.0) g/dL Procalcitonin (0.02-0.50) ng/mL Urine Appearance (Clear) Urine Protein (Negative) Urine Blood (Negative) Ur Leukocyte Esterase (Negative) Urine RBC (0-5) /hpf Urine WBC (0-5) /hpf Urine WBC Clumps (None) /hpf Urine Bacteria (None) /hpf Urine Mucus (None) /hpf - Imaging and Cardiology Chest x-ray: report reviewed, image reviewed Assessment and Plan Assessment: Severe aortic valve regurgitation, status post aortic valve replacement Moderate mitral valve regurgitation, status post mitral valve repair Mild to moderate tricuspid valve regurgitation Mild pulmonary hypertension Postoperative blood loss anemia and thrombocytopenia, expected given cardiopulmonary bypass and hemodilution Hypervolemic hyponatremia Transaminitis, felt to be from volume overload Leukocytosis, felt to be from urinary tract infection History of chronic heart failure with reduced ejection fraction, EF 40% Hypertension Chronic kidney disease stage III Iron deficiency anemia Paroxysmal atrial fibrillation with cardioversion in 2023 on Eliquis for anticoagulation status post permanent dual-chamber pacemaker, status post ligation of the left atrial appendage Embolic stroke with full recovery in 2016 Mild lung disease, preoperative FEV1 73% of predicted COVID in 2021 Lifelong non-smoker Plan: Continue to maximize medical therapy with low dose aspirin, Plavix and beta- pari. Will increase beta-pari therapy when tolerated Continue hydralazine for afterload reduction with hold parameters, decreased to 25 mg twice daily Continue IV Primacor at low-dose Continue oral amiodarone for A-fib prophylaxis, will decrease to 200 mg twice daily tomorrow. No anticoagulation until all lines and tubes have been discontinued Will defer to nephrology's judgment regarding Lasix and Samsca No statin as the patient is sensitive to statins, no hyperlipidemia present Wean oxygen as tolerated. Encourage incentive spirometry use 10 times every hour while awake. Bronchodilators per pulmonology. Will monitor daily labs and chest x-rays, electrolyte replacement per protocol Increase activity, ambulate as tolerated. PT/OT/cardiac rehab following GI/DVT prophylaxis Pain control per current medication regimen. No Toradol due to the patient's chronic kidney disease. Insulin management per internal medicine, preoperative hemoglobin A1c 6.1% May bladder scan and straight cath for greater than 300 mL residual Continue to monitor record strict accurate intake and output. More recommendations to follow based on patient's clinical course.
[2024-05-11 10:00] LABS: Band Neutrophils % 1 %; Neutrophils % (M) 84 %; Nucleated Red Blood Cells 28 /100 WBC (0-0); Total Cells Counted 200
[2024-05-11 10:01] LABS: Eosinophils # (M) 0.12 k/uL (0-0.7); Monocytes # (M) 0.35 k/uL (0-1.0); WBC 11.7 k/uL (3.8-10.6)
[2024-05-11] MEDS: TOLVAPTAN 15 MG TABLET PO ONE (11:05)
[2024-05-11] MEDS: FUROSEMIDE 10 MG/ML 4 ML VIAL IV STA (11:41)
[2024-05-11 11:46] LABS: Glucose,Whole Blood 186 mg/dL (70-110)
--- NOTE | 2024-05-11 14:25 | P.PN ---
Subjective Progress Note Date: 05/11/24 Principal diagnosis: POD #8 aortic valve replacement using a 19 mm Inspiris pericardial bioprosthesis, mitral valve repair using a posterior annuloplasty band 26 mm annuloflex, exclusion of the left atrial appendage using a 35mm AtriClip, and transesophageal echocardiogram and epiaortic scanning. This is a 79-year-old female patient being seen in the intensive care unit pos top as the patient had severe aortic valve regurgitation with mitral valve regurgitation and mild pulmonary hypertension and moderate LV dysfunction and the patient was taken to the operating room and underwent aortic valve replacement and mitral valve repair. The patient is also noted to have par oxysmal A-fib and has a pacemaker in place along with history of chronic kidney disease and previous history of embolic stroke with full recovery. The patient was brought into the intensive care and intubated on the mechanical ventilator. The patient was sedated with propofol. The patient is on the mechanical ventilator, assist-control mode rate of 12, tidal volume of 400, FiO2 of 100% with a PEEP of 5. Initial blood gases postop in the intensive care unit showed a pH of 7.57 with a pCO2 of 27 and pO2 of 256. FiO2 was dropped down to 60% and follow-up gases showed a pH of 7. 36 with a pCO2 of 47 and pO2 of 153. The patient's PA pressures were 38/28. Cardiac index was 1.7. Patient has mediastinal x2.. Chest x-ray showed adequate expansion of both lungs. No evidence of any pneumothorax. The patient has a right IJ Glend[place]-Kip catheter in place. The patient is atrially paced at rate of 80. The patient is currently on low-dose norepinephrine and milrinone which is running at 0.2 mcg/kg/min. Urine output is adequate. Initial blood work showed a white cell count of 8 with a hemoglobin 9.1 and a platelet count of 66. The sodium is at 141, potassium is at 4.4, chloride is 109 with a bicarb of 25 BUN of 18 with a creatinine of 0.7. IV fluids are normal saline at rate of 50 cc an hour. No other significant events postop. On 05/04/2024, patient is being seen for a follow-up. The patient is post aortic valve replacement and mitral valve repair and the patient is postop day #2. The patient was weaned off the mechanical ventilator and the patient was extubated any major difficulties and the patient is currently on 2 L of oxygen by nasal cannula. Hemodynamically, the patient is still requiring inotropes and the patient is currently on Primacor which is running at 0.125 mcg/kg/min and the patient is off norepinephrine. Cardiac index today is at 2.3. PA pressures are 31/11. The patient remains atrially paced at a rate of 80. Urine output is noted of 30 cc an hour. Remains on amiodarone and the patient will be switched from amiodarone drip to oral amiodarone. Using incentive spirometer, pulling approximately thousand. Chest x-ray from this morning was noted and the patient has cardiomegaly and pulm vascular congestion and small bilateral pleural effu sions. Mediastinal chest tubes are still in place and output is minimal at this point in time. The patient is calm and comfortable. Denies having any specific complaints. Remains on insulin drip which is running at 1 unit an hour for adequate blood sugar control. On 05/05/2024, the patient is being seen for a follow-up. The patient is currently on her intrinsic pacemaker and she is pacing at rate of 60. Her cardiac output and index are being monitored. Earlier this morning, the cardiac index was a 2.2. The patient remains on milrinone 0.125 mcg/kg/min. Urine output is adequate. Output from the chest tubes are minimal. Using incentive spirometer. She remains on 2 L of oxygen by nasal cannula. Chest x-ray from today shows small bilateral pleural effusions and cardiomegaly. Blood work from today shows a white cell count of 12.4, hemoglobin of 9.4 and platelet count of 73. BUN is 20 with a creatinine of 0.7 and sodium is at 130. The patient was started on metoprolol 12.5 mg p.o. twice a day. She is centimeter on 12 mg p.o. daily. She remains on aspirin. Rest of the me dications remain unchanged. Midodrine was also added 5 mg p.o. 3 times daily. She is also on losartan 12.5 mg p.o. daily. She is currently postop day #2 following a aortic valve replacement and mitral valve repair. On today's evaluation 05/06/2024, the patient is being seen for a follow-up. The patient remains on 2 L of oxygen by nasal cannula. Chest x-ray findings remain unchanged the patient continues to have some small bilateral pleural effusions. The patient utilizing her intrinsic pacemaker. Urine output is in order of 30 to 40 cc an hour. She remains on milrinone at 0.25 mcg/kg/h and a cardiac index of 2.2. The patient is still inotrope dependent as the patient's cardiac output is dropping while the milrinone is being weaned. Meanwhile, the patient was given Lasix 40 mg IV push x 1. Awake and alert and communicating. No focal neurological deficits. Chest tubes have been removed. The white cell count of 14.1, hemoglobin is at 9.3 and a platelet count of 75. Sodium is at 126, BUN is 29 with a creatinine of 0.9. Potassium level is at 4.9. The patient is currently on amiodarone 200 mg p.o. daily. The patient is also on metoprolol which is currently on hold. Midodrine at 5 mg p.o. 3 times daily. Aspirin and Plavix. Hydralazine 50 mg p.o. twice daily. Oxycodone for pain control. The patient is postop day #3 following awaiting placement and mitral valve repair. On 05/07/2024, the patient is being seen for a follow-up. The patient remains on 2 L of oxygen by nasal cannula and chest x-ray still showing evidence of bilateral pleural effusion and pulm vascular congestion. The cardiac output is at 2.6 with an index of 1.8. SVR is at 1936. PA pressures are 45/25. CVP is 18. Given a dose of Lasix 20 mg IV push x 1 today. Remains in atrial fibrillat ion. Urine output is in order of 40 cc an hour and the patient remains on milrinone at 0.125 mcg/kg/h. The hemoglobin is at 9.2. White cell count is at 11.9. Platelet count is 105. BUN 33 creatinine of 0.9. Sodium levels at 126. Meanwhile, the patient is on metoprolol 12.5 mg p.o. twice a day. The patient remains on aspirin and Plavix. The patient is on hydralazine 50 mg p.o. twice daily with close monitoring of the blood pressure. Ambulating., Comfortable. Chest tubes have been removed. The patient is postop day #4 following aortic valve replacement and mitral valve repair. On 05/08/2024, the patient is awake and alert and she remains on 5 L of O2 nasal cannula. Chest x-ray essentially unchanged and shows pulm vessel congestion bilateral pleural effusions. Chest tubes have been removed. Cardiac index is ranging between 1.8 and 2 and the patient was taken off the milrinone drip. For now, the patient amiodarone 4 mg p.o. twice a day, metoprolol 12.5 mg twice daily and he was given Lasix 40 mg IV push x 1. She remains on hydralazine for afterload reduction 50 mg p.o. twice a day. Blood work shows a white cell count of 15.1, hemoglobin is at 9 and a platelet count of 139. Sodium is at 128, BUN 38 with a creatinine 1.0 and potassium dose is 4.9. LFTs are slightly elevated the patient is postop day 5 following aortic valve placement and mitral valve repair. On 05/09/2024, the patient is being seen for a follow-up. The patient remains off milrinone. The cardiac index is at 1.7 and the patient remains on 2 L of oxygen by nasal cannula. She remains atrial fibrillation. She is on amiodarone 4 mg p.o. twice a day and metoprolol 25 mg p.o. twice a day and she remains on a combination of aspirin and Plavix. The patient is also on hydralazine for afterload reduction 50 mg p.o. 3 times daily. She was given Lasix 40 mg IV push x 1 today. Chest x-ray findings are essentially unchanged and the patient has small bilateral pleural effusion and pulm vessel congestion. The white cell count is at 17, hemoglobin is at 9.3 and a platelet count is 161. Sodium levels at 127, potassium level is at 5, BUN is 43 with a creatinine of 1.07. The patient did have some mild transaminitis which is improving compared to yesterday. Chest tubes are removed. No other significant events overnight. The patient is currently on 2 L of oxygen by nasal cannula. She is ambulating. Patient was seen today on 05/10/2024, patient remains in the ICU on 4 L nasal cannula, she is still requiring milrinone at 0.1 mcg/kg/min, IV fluids at 20 cc/h, patient continues to have paced rhythm, today she underwent left-sided thoracentesis and I was able to retrieve 700 cc of serosanguineous fluid from the left pleural space. Patient tolerated the procedure well, she does not seem to be in any distress, she does feel woozy intermittently, and I believe the patient may be having episodes of low blood pressure she is on 2 L nasal cannula with O2 sats of 97%, achieving about 750 mL with her incentive spirometry. On the monitor she continues to have occasional episodes of atrial fibrillation, remains on amiodarone and she is also on metoprolol 25 twice daily, Primacor is infusing at 0.1 mcg/kg/min. Liver enzymes seems to be trending up. Episodes are being closely monitored. Chest x-ray showed evidence of bilateral pleural effusions, left more so than right, hence I went ahead and performed left-sided thoracentesis on this patient. WBC count is elevated 18.2 hemoglobin 8.8 sodium is 124 potassium 4.8 BUN is 75 creatinine 1.26 liver enzymes are elevated with AST of 435 ALT 441 and alkaline phosphatase of 180 Patient was seen today on 05/11/2024, patient is now postoperative day #8. Remains in the ICU, blood pressure seems to be marginal, denies shortness of breath denies any pain, patient is ambulating with assistance. Remains on Primacor at 0.1 mcg/kg/min, her sodium is low at 123, and there is a concern about further diuresing the patient, this is being addressed by nephrology on the case. Remains on amiodarone for atrial fibrillation, yesterday she underwent left-sided thoracentesis and 700 cc of fluid was drained. Chest x-ray today showed small tiny pleural effusions bilaterally. And there is a concern of mild pulmonary vascular congestion/pulmonary edema. O2 saturation is 90% on 4 L nasal cannula. IV fluid is at KVO. Objective - Vital Signs Vital signs: Vital Signs Temp 96.0 F L 05/11/24 12:00 Pulse 71 05/11/24 13:00 Resp 18 05/11/24 13:00 BP 86/52 05/11/24 11:00 Pulse Ox 90 L 05/11/24 12:00 FiO2 50 05/03/24 20:00 Intake & Output 05/10/24 05/11/24 05/11/24 18:59 06:59 18:59 Intake Total 1099 313 437.147 Output Total 700 900 500 Balance 399 -587 -62.853 Weight 60.2 kg Intake: IV 399 313 101 0.9 PRESSURE BAG 39 33 21 Albumin Human 25% 50 ml 50 In Empty Bag 1 bag @ 50 mls/hr IVPB ONCE ONE Rx#: [id number] Cefepime 1 gm In Sodium 50 Chloride 0.9% 50 ml @ 12. 5 mls/hr IVPB Q12H [facility] Rx #:[id number] Cefepime 2 gm In Sodium 100 Chloride 0.9% 100 ml @ 25 mls/hr IVPB Q8HR [facility] Rx# :[id number] Sodium Chloride 0.9% 1, 260 180 80 000 ml @ 30 mls/hr IV . Q24H [facility] Rx#:[id number] Intake, IV Titration 86.147 Amount Milrinone-D5w Pmx 20 mg 86.147 In Dextrose/Water 1 100ml .bag @ 0.1 MCG/KG/MIN 1. 791 mls/hr IV .Q24H [facility] Rx#:[id number] Oral 700 250 Output: Urine 700 900 500 Straight 250 Other: Voiding Method Bedside Commode Bedside Commode Bedside Commode Bedpan # Bowel Movements 0 0 0 ABP, PAP, CO, CI - Last Documented Arterial Blood Pressure 131/79 Pulmonary Artery Pressure 39/22 Cardiac Output 2.4 Cardiac Index 1.5 - Exam General: Revealed 79-year-old female in no distress, on 4 L nasal cannula sitting at the bedside recliner RESPIRATORY: Diminished breath sounds at the bases with minimal crackles no rhonchi no wheezes CARDIOVASCULAR: Distant S1-S2, no S3 gallop, no murmur GASTROINTESTINAL: Abdomen is soft nontender no rebound no guarding INTEGUMENTARY: No rashes NEUROLOGIC: Alert oriented x 3 no gross focal deficit MUSKULOSKELETAL: No deformities and no limitation range of motion PSYCHIATRIC: Normal mood affect and no mental status examination - Labs CBC & Chem 7: 05/11/24 06:00 05/11/24 06:00 Labs: Abnormal Lab Results - Last 24 Hours (Table) 05/10/24 05/10/24 05/10/24 Range/Units 13:57 13:57 16:18 WBC (3.8-10.6) k/uL RBC (3.80-5.40) m/uL Hgb (11.4-16.0) gm/dL Hct (34.0-46.0) % MCV (80.0-100.0) fL RDW (11.5-15.5) % Neutrophils # (Manual) (1.3-7.7) k/uL Nucleated RBCs (0-0) /100 WBC Sodium (137-145) mmol/L Potassium (3.5-5.1) mmol/L Chloride (98-107) mmol/L Carbon Dioxide (22-30) mmol/L BUN (7-17) mg/dL Creatinine (0.52-1.04) mg/dL Glucose (74-99) mg/dL POC Glucose (mg/dL) 162 H (70-110) mg/dL AST (14-36) U/L ALT (4-34) U/L Alkaline Phosphatase (38-126) U/L C-Reactive Protein 17.2 H (<1.0) mg/dL Total Protein (6.3-8.2) g/dL Albumin (3.5-5.0) g/dL Procalcitonin 1.06 H (0.02-0.50) ng/mL Urine Appearance (Clear) Urine Protein (Negative) Urine Blood (Negative) Ur Leukocyte Esterase (Negative) Urine RBC (0-5) /hpf Urine WBC (0-5) /hpf Urine WBC Clumps (None) /hpf Urine Bacteria (None) /hpf Urine Mucus (None) /hpf 05/10/24 05/11/24 05/11/24 Range/Units 18:20 00:18 06:00 WBC (3.8-10.6) k/uL RBC (3.80-5.40) m/uL Hgb (11.4-16.0) gm/dL Hct (34.0-46.0) % MCV (80.0-100.0) fL RDW (11.5-15.5) % Neutrophils # (Manual) (1.3-7.7) k/uL Nucleated RBCs (0-0) /100 WBC Sodium 123 L (137-145) mmol/L Potassium 5.3 H (3.5-5.1) mmol/L Chloride 94 L (98-107) mmol/L Carbon Dioxide 21 L (22-30) mmol/L BUN 93 H (7-17) mg/dL Creatinine 1.21 H (0.52-1.04) mg/dL Glucose 116 H (74-99) mg/dL POC Glucose (mg/dL) 119 H (70-110) mg/dL AST 363 H (14-36) U/L ALT 446 H (4-34) U/L Alkaline Phosphatase 162 H (38-126) U/L C-Reactive Protein (<1.0) mg/dL Total Protein 5.3 L (6.3-8.2) g/dL Albumin 3.1 L (3.5-5.0) g/dL Procalcitonin (0.02-0.50) ng/mL Urine Appearance Cloudy H (Clear) Urine Protein 1+ H (Negative) Urine Blood Large H (Negative) Ur Leukocyte Esterase Large H (Negative) Urine RBC >182 H (0-5) /hpf Urine WBC >182 H (0-5) /hpf Urine WBC Clumps Many H (None) /hpf Urine Bacteria Many H (None) /hpf Urine Mucus Rare H (None) /hpf 05/11/24 05/11/24 05/11/24 Range/Units 06:00 06:11 11:44 WBC 11.7 H (3.8-10.6) k/uL RBC 2.95 L (3.80-5.40) m/uL Hgb 9.5 L (11.4-16.0) gm/dL Hct 30.1 L (34.0-46.0) % MCV 102.0 H (80.0-100.0) fL RDW 23.5 H (11.5-15.5) % Neutrophils # (Manual) 9.90 H (1.3-7.7) k/uL Nucleated RBCs 28 H (0-0) /100 WBC Sodium (137-145) mmol/L Potassium (3.5-5.1) mmol/L Chloride (98-107) mmol/L Carbon Dioxide (22-30) mmol/L BUN (7-17) mg/dL Creatinine (0.52-1.04) mg/dL Glucose (74-99) mg/dL POC Glucose (mg/dL) 131 H 186 H (70-110) mg/dL AST (14-36) U/L ALT (4-34) U/L Alkaline Phosphatase (38-126) U/L C-Reactive Protein (<1.0) mg/dL Total Protein (6.3-8.2) g/dL Albumin (3.5-5.0) g/dL Procalcitonin (0.02-0.50) ng/mL Urine Appearance (Clear) Urine Protein (Negative) Urine Blood (Negative) Ur Leukocyte Esterase (Negative) Urine RBC (0-5) /hpf Urine WBC (0-5) /hpf Urine WBC Clumps (None) /hpf Urine Bacteria (None) /hpf Urine Mucus (None) /hpf Assessment and Plan Assessment: Impression:POD #8 aortic valve replacement using a 19 mm Inspiris pericardial bioprosthesis, mitral valve repair using a posterior annuloplasty band 26 mm annuloflex, exclusion of the left atrial appendage using a 35mm AtriClip, and transesophageal echocardiogram and epiaortic scanning. Severe aortic valve regurgitation, status post aortic valve replacement Moderate mitral valve regurgitation, status post mitral valve repair Mild to moderate tricuspid valve regurgitation Mild pulmonary hypertension Postoperative blood loss anemia and thrombocytopenia, expected given cardiopulmonary bypass and hemodilution Hypervolemic hyponatremia Transaminitis, felt to be from volume overload History of chronic heart failure with reduced ejection fraction, EF 40% Hypertension Chronic kidney disease stage III Iron deficiency anemia Paroxysmal atrial fibrillation with cardioversion in 2023 on Eliquis for ant icoagulation status post permanent dual-chamber pacemaker, status post ligation of the left atrial appendage Embolic stroke with full recovery in 2017 Mild lung disease, preoperative FEV1 73% of predicted Lifelong non-smoker Status post left-sided thoracentesis on 05/10/2024, 700 cc removed from the left pleural space Recommendation: Continue medical therapy with low dose aspirin, Plavix and beta-pari. Continue oral amiodarone for atrial fibrillation prophylaxis. Patient underwent uneventful left-sided thoracentesis, 700 cc of serosanguineous fluid was removed Infectious disease is seeing on consultation for leukocytosis, placed on cefepime empirically Nephrology is addressing hyponatremia and was given tolvaptan Continue ambulation as tolerated GI/DVT prophylaxis. Monitor I's and O's Will continue to follow Monitor daily x-rays of the chest Time with Patient: Less than 30
--- NOTE | 2024-05-11 14:52 | P.PN ---
Subjective Progress Note Date: 05/11/24 The patient is a 79-year-old female who is postop day 7 after aortic valve replacement and mitral valve repair patient also has known history of persistent atrial fibrillation and sick sinus syndrome status post permanent pacemaker. Patient had been feeling well postoperatively but chest x-ray showed large left pleural effusion. Patient underwent thoracentesis, draining 700 mL. Patient interviewed and examined sitting up in the recliner chair. She still has some difficulty breathing but states it has improved since her thoracentesis yesterday. GENERAL: Well-appearing, well-nourished and in no acute distress. NECK: Supple without JVD or thyromegaly. LUNGS: Breath sounds diminished to auscultation bilaterally. Respiration equal and unlabored. No wheezes, rales or rhonchi. HEART: Irregular rate and rhythm without murmurs, rubs or gallops. S1 and S2 heard. EXTREMITIES: Normal range of motion, no edema. No clubbing or cyanosis. Peripheral pulses intact and strong. TELEMETRY: Atrial fibrillation with occasional PVCs LABS: WBC 11.7, hemoglobin 9.5, hematocrit 30.1, platelet 190, sodium 123, potassium 5.3, BUN 93, creatinine 1.21, AST 363, ALT 446 and ALP 162 IMPRESSION: Severe aortic valve regurgitation, status post aortic valve replacement Moderate mitral valve regurgitation, status post mitral valve repair Transaminitis, worsening History of chronic heart failure with reduced ejection fraction, EF 40% Hypertension Chronic kidney disease stage III Paroxysmal atrial fibrillation Sick sinus syndrome status post permanent dual-chamber pacemaker Embolic stroke with full recovery in 2017 PLAN: Continue supportive treatment Further recommendations to be based upon clinical course I am dictating on behalf of Dr John Niño's history/physical and assessment/plan. Objective - Vital Signs Vital signs: Vital Signs Temp 96.0 F L 05/11/24 12:00 Pulse 71 05/11/24 13:00 Resp 18 05/11/24 13:00 BP 86/52 05/11/24 11:00 Pulse Ox 90 L 05/11/24 12:00 FiO2 50 05/03/24 20:00 Intake & Output 05/10/24 05/11/24 05/11/24 18:59 06:59 18:59 Intake Total 1099 313 437.147 Output Total 700 900 500 Balance 399 -587 -62.853 Weight 60.2 kg Intake: IV 399 313 101 0.9 PRESSURE BAG 39 33 21 Albumin Human 25% 50 ml 50 In Empty Bag 1 bag @ 50 mls/hr IVPB ONCE ONE Rx#: [id number] Cefepime 1 gm In Sodium 50 Chloride 0.9% 50 ml @ 12. 5 mls/hr IVPB Q12H [facility] Rx #:[id number] Cefepime 2 gm In Sodium 100 Chloride 0.9% 100 ml @ 25 mls/hr IVPB Q8HR [facility] Rx# :[id number] Sodium Chloride 0.9% 1, 260 180 80 000 ml @ 30 mls/hr IV . Q24H [facility] Rx#:[id number] Intake, IV Titration 86.147 Amount Milrinone-D5w Pmx 20 mg 86.147 In Dextrose/Water 1 100ml .bag @ 0.1 MCG/KG/MIN 1. 791 mls/hr IV .Q24H [facility] Rx#:[id number] Oral 700 250 Output: Urine 700 900 500 Straight 250 Other: Voiding Method Bedside Commode Bedside Commode Bedside Commode Bedpan # Bowel Movements 0 0 0 ABP, PAP, CO, CI - Last Documented Arterial Blood Pressure 131/79 Pulmonary Artery Pressure 39/22 Cardiac Output 2.4 Cardiac Index 1.5 - Labs CBC & Chem 7: 05/11/24 06:00 05/11/24 06:00 Labs: Abnormal Lab Results - Last 24 Hours (Table) 05/10/24 05/10/24 05/10/24 Range/Units 13:57 16:18 18:20 WBC (3.8-10.6) k/uL RBC (3.80-5.40) m/uL Hgb (11.4-16.0) gm/dL Hct (34.0-46.0) % MCV (80.0-100.0) fL RDW (11.5-15.5) % Neutrophils # (Manual) (1.3-7.7) k/uL Nucleated RBCs (0-0) /100 WBC Sodium (137-145) mmol/L Potassium (3.5-5.1) mmol/L Chloride (98-107) mmol/L Carbon Dioxide (22-30) mmol/L BUN (7-17) mg/dL Creatinine (0.52-1.04) mg/dL Glucose (74-99) mg/dL POC Glucose (mg/dL) 162 H (70-110) mg/dL AST (14-36) U/L ALT (4-34) U/L Alkaline Phosphatase (38-126) U/L Total Protein (6.3-8.2) g/dL Albumin (3.5-5.0) g/dL Procalcitonin 1.06 H (0.02-0.50) ng/mL Urine Appearance Cloudy H (Clear) Urine Protein 1+ H (Negative) Urine Blood Large H (Negative) Ur Leukocyte Esterase Large H (Negative) Urine RBC >182 H (0-5) /hpf Urine WBC >182 H (0-5) /hpf Urine WBC Clumps Many H (None) /hpf Urine Bacteria Many H (None) /hpf Urine Mucus Rare H (None) /hpf 05/11/24 05/11/24 05/11/24 Range/Units 00:18 06:00 06:00 WBC 11.7 H (3.8-10.6) k/uL RBC 2.95 L (3.80-5.40) m/uL Hgb 9.5 L (11.4-16.0) gm/dL Hct 30.1 L (34.0-46.0) % MCV 102.0 H (80.0-100.0) fL RDW 23.5 H (11.5-15.5) % Neutrophils # (Manual) 9.90 H (1.3-7.7) k/uL Nucleated RBCs 28 H (0-0) /100 WBC Sodium 123 L (137-145) mmol/L Potassium 5.3 H (3.5-5.1) mmol/L Chloride 94 L (98-107) mmol/L Carbon Dioxide 21 L (22-30) mmol/L BUN 93 H (7-17) mg/dL Creatinine 1.21 H (0.52-1.04) mg/dL Glucose 116 H (74-99) mg/dL POC Glucose (mg/dL) 119 H (70-110) mg/dL AST 363 H (14-36) U/L ALT 446 H (4-34) U/L Alkaline Phosphatase 162 H (38-126) U/L Total Protein 5.3 L (6.3-8.2) g/dL Albumin 3.1 L (3.5-5.0) g/dL Procalcitonin (0.02-0.50) ng/mL Urine Appearance (Clear) Urine Protein (Negative) Urine Blood (Negative) Ur Leukocyte Esterase (Negative) Urine RBC (0-5) /hpf Urine WBC (0-5) /hpf Urine WBC Clumps (None) /hpf Urine Bacteria (None) /hpf Urine Mucus (None) /hpf 05/11/24 05/11/24 Range/Units 06:11 11:44 WBC (3.8-10.6) k/uL RBC (3.80-5.40) m/uL Hgb (11.4-16.0) gm/dL Hct (34.0-46.0) % MCV (80.0-100.0) fL RDW (11.5-15.5) % Neutrophils # (Manual) (1.3-7.7) k/uL Nucleated RBCs (0-0) /100 WBC Sodium (137-145) mmol/L Potassium (3.5-5.1) mmol/L Chloride (98-107) mmol/L Carbon Dioxide (22-30) mmol/L BUN (7-17) mg/dL Creatinine (0.52-1.04) mg/dL Glucose (74-99) mg/dL POC Glucose (mg/dL) 131 H 186 H (70-110) mg/dL AST (14-36) U/L ALT (4-34) U/L Alkaline Phosphatase (38-126) U/L Total Protein (6.3-8.2) g/dL Albumin (3.5-5.0) g/dL Procalcitonin (0.02-0.50) ng/mL Urine Appearance (Clear) Urine Protein (Negative) Urine Blood (Negative) Ur Leukocyte Esterase (Negative) Urine RBC (0-5) /hpf Urine WBC (0-5) /hpf Urine WBC Clumps (None) /hpf Urine Bacteria (None) /hpf Urine Mucus (None) /hpf
--- NOTE | 2024-05-11 16:20 | P.PN ---
Subjective Progress Note Date: 05/11/24 Principal diagnosis: Reason for follow-up is leukocytosis/UTI Patient is a 79-year-old female with a past medical history significant for Atrial Fibrillation, Heart Failure, CVA/TIA, Eye Disorder, Hearing Disorder / Deafness, Hyperlipidemia, Hypertension, Osteoarthritis (OA), Renal Disease, Skin Disorder electively admitted to the hospital after the patient did have aortic valve replacement mitral valve repair, did have urinary symptoms of burning positive UA concerning for UTI elevated white count prompted this consultation. On today's evaluation that is 05/11/2024, Patient is afebrile this morning patient denies having any chest pain shortness of breath or cough, the patient is currently on 4 L residual oxygen, patient denies any abdominal pain no diarrhea no nausea no vomiting Patient white count is 11.7, creatinine is 1.21 urine is positive cultures are pending Objective - Vital Signs Vital signs: Vital Signs Temp 97.0 F L 05/11/24 04:00 Pulse 80 05/11/24 11:38 Resp 19 05/11/24 10:00 BP 99/69 05/09/24 22:00 Pulse Ox 93 L 05/11/24 10:00 FiO2 50 05/03/24 20:00 Intake & Output 05/10/24 05/11/24 05/11/24 18:59 06:59 18:59 Intake Total 1099 313 242 Output Total 700 900 0 Balance 399 -587 242 Weight 60.2 kg Intake: IV 399 313 92 0.9 PRESSURE BAG 39 33 12 Albumin Human 25% 50 ml 50 In Empty Bag 1 bag @ 50 mls/hr IVPB ONCE ONE Rx#: [id number] Cefepime 1 gm In Sodium 50 Chloride 0.9% 50 ml @ 12. 5 mls/hr IVPB Q12H [facility] Rx #:[id number] Cefepime 2 gm In Sodium 100 Chloride 0.9% 100 ml @ 25 mls/hr IVPB Q8HR [facility] Rx# :[id number] Sodium Chloride 0.9% 1, 260 180 80 000 ml @ 30 mls/hr IV . Q24H [facility] Rx#:[id number] Oral 700 150 Output: Urine 700 900 0 Straight 250 Other: Voiding Method Bedside Commode Bedside Commode Bedside Commode Bedpan # Bowel Movements 0 0 0 ABP, PAP, CO, CI - Last Documented Arterial Blood Pressure 109/61 Pulmonary Artery Pressure 39/22 Cardiac Output 2.4 Cardiac Index 1.5 - Exam GENERAL DESCRIPTION: An elderly In the chair in no distress RESPIRATORY SYSTEM: Unlabored breathing , decreased breath sounds at bases HEART: S1 S2 regular rate and rhythm , ABDOMEN: Soft , no tenderness EXTREMITIES: No edema feet - Labs CBC & Chem 7: 05/11/24 06:00 05/11/24 06:00 Labs: Abnormal Lab Results - Last 24 Hours (Table) 05/10/24 05/10/24 05/10/24 Range/Units 12:32 13:57 13:57 WBC (3.8-10.6) k/uL RBC (3.80-5.40) m/uL Hgb (11.4-16.0) gm/dL Hct (34.0-46.0) % MCV (80.0-100.0) fL RDW (11.5-15.5) % Neutrophils # (Manual) (1.3-7.7) k/uL Nucleated RBCs (0-0) /100 WBC Sodium 124 L (137-145) mmol/L Potassium (3.5-5.1) mmol/L Chloride (98-107) mmol/L Carbon Dioxide (22-30) mmol/L BUN (7-17) mg/dL Creatinine (0.52-1.04) mg/dL Glucose (74-99) mg/dL POC Glucose (mg/dL) (70-110) mg/dL AST (14-36) U/L ALT (4-34) U/L Alkaline Phosphatase (38-126) U/L C-Reactive Protein 17.2 H (<1.0) mg/dL Total Protein (6.3-8.2) g/dL Albumin (3.5-5.0) g/dL Procalcitonin 1.06 H (0.02-0.50) ng/mL Urine Appearance (Clear) Urine Protein (Negative) Urine Blood (Negative) Ur Leukocyte Esterase (Negative) Urine RBC (0-5) /hpf Urine WBC (0-5) /hpf Urine WBC Clumps (None) /hpf Urine Bacteria (None) /hpf Urine Mucus (None) /hpf 05/10/24 05/10/24 05/11/24 Range/Units 16:18 18:20 00:18 WBC (3.8-10.6) k/uL RBC (3.80-5.40) m/uL Hgb (11.4-16.0) gm/dL Hct (34.0-46.0) % MCV (80.0-100.0) fL RDW (11.5-15.5) % Neutrophils # (Manual) (1.3-7.7) k/uL Nucleated RBCs (0-0) /100 WBC Sodium (137-145) mmol/L Potassium (3.5-5.1) mmol/L Chloride (98-107) mmol/L Carbon Dioxide (22-30) mmol/L BUN (7-17) mg/dL Creatinine (0.52-1.04) mg/dL Glucose (74-99) mg/dL POC Glucose (mg/dL) 162 H 119 H (70-110) mg/dL AST (14-36) U/L ALT (4-34) U/L Alkaline Phosphatase (38-126) U/L C-Reactive Protein (<1.0) mg/dL Total Protein (6.3-8.2) g/dL Albumin (3.5-5.0) g/dL Procalcitonin (0.02-0.50) ng/mL Urine Appearance Cloudy H (Clear) Urine Protein 1+ H (Negative) Urine Blood Large H (Negative) Ur Leukocyte Esterase Large H (Negative) Urine RBC >182 H (0-5) /hpf Urine WBC >182 H (0-5) /hpf Urine WBC Clumps Many H (None) /hpf Urine Bacteria Many H (None) /hpf Urine Mucus Rare H (None) /hpf 05/11/24 05/11/24 05/11/24 Range/Units 06:00 06:00 06:11 WBC 11.7 H (3.8-10.6) k/uL RBC 2.95 L (3.80-5.40) m/uL Hgb 9.5 L (11.4-16.0) gm/dL Hct 30.1 L (34.0-46.0) % MCV 102.0 H (80.0-100.0) fL RDW 23.5 H (11.5-15.5) % Neutrophils # (Manual) 9.90 H (1.3-7.7) k/uL Nucleated RBCs 28 H (0-0) /100 WBC Sodium 123 L (137-145) mmol/L Potassium 5.3 H (3.5-5.1) mmol/L Chloride 94 L (98-107) mmol/L Carbon Dioxide 21 L (22-30) mmol/L BUN 93 H (7-17) mg/dL Creatinine 1.21 H (0.52-1.04) mg/dL Glucose 116 H (74-99) mg/dL POC Glucose (mg/dL) 131 H (70-110) mg/dL AST 363 H (14-36) U/L ALT 446 H (4-34) U/L Alkaline Phosphatase 162 H (38-126) U/L C-Reactive Protein (<1.0) mg/dL Total Protein 5.3 L (6.3-8.2) g/dL Albumin 3.1 L (3.5-5.0) g/dL Procalcitonin (0.02-0.50) ng/mL Urine Appearance (Clear) Urine Protein (Negative) Urine Blood (Negative) Ur Leukocyte Esterase (Negative) Urine RBC (0-5) /hpf Urine WBC (0-5) /hpf Urine WBC Clumps (None) /hpf Urine Bacteria (None) /hpf Urine Mucus (None) /hpf // Range/Units 11:44 WBC (3.8-10.6) k/uL RBC (3.80-5.40) m/uL Hgb (11.4-16.0) gm/dL Hct (34.0-46.0) % MCV (80.0-100.0) fL RDW (11.5-15.5) % Neutrophils # (Manual) (1.3-7.7) k/uL Nucleated RBCs (0-0) /100 WBC Sodium (137-145) mmol/L Potassium (3.5-5.1) mmol/L Chloride (98-107) mmol/L Carbon Dioxide (22-30) mmol/L BUN (7-17) mg/dL Creatinine (0.52-1.04) mg/dL Glucose (74-99) mg/dL POC Glucose (mg/dL) 186 H (70-110) mg/dL AST (14-36) U/L ALT (4-34) U/L Alkaline Phosphatase (38-126) U/L C-Reactive Protein (<1.0) mg/dL Total Protein (6.3-8.2) g/dL Albumin (3.5-5.0) g/dL Procalcitonin (0.02-0.50) ng/mL Urine Appearance (Clear) Urine Protein (Negative) Urine Blood (Negative) Ur Leukocyte Esterase (Negative) Urine RBC (0-5) /hpf Urine WBC (0-5) /hpf Urine WBC Clumps (None) /hpf Urine Bacteria (None) /hpf Urine Mucus (None) /hpf Assessment and Plan (1) Leukocytosis Current Visit: Yes Status: Acute Code(s): D72.829 - ELEVATED WHITE BLOOD CELL COUNT, UNSPECIFIED SNOMED Code(s): 720875053 (2) UTI (urinary tract infection) Current Visit: Yes Status: Acute Code(s): N39.0 - URINARY TRACT INFECTION, SITE NOT SPECIFIED SNOMED Code(s): 45129011 Plan: 1patient with elevated white count in this patient electively admitted to hospital and is status post aortic valve replacement and mitral valve repair she did have urinary catheter postsurgery which has been discontinued yesterday now with cloudy urine difficulty urination ID clinic suspicious for urinary source to be responsible for this elevated white count and need to be treated aggressively with recent cardiac procedure 2-patient did have a positive UA blood and urine culture currently pending 3-white count is trending down with cefepime to continue while waiting for the culture to finalize Dictation was produced using [employer] dictation software. please excuse any grammatical, word or spelling errors.
[2024-05-11 16:53] LABS: Glucose,Whole Blood 116 mg/dL (70-110)
--- NOTE | 2024-05-11 17:02 | P.PN ---
Subjective Patient is seen for follow-up for hyponatremia. Sodium staying at 123 Serum creatinine 1.2 Patient remains on milrinone Urine output 1.8 L for 24 hours. Complaining of feeling very bloated with difficulty in ambulation. No significant shortness of breath Objective - Vital Signs Vital signs: Vital Signs Temp 96.0 F L 05/11/24 12:00 Pulse 70 05/11/24 16:01 Resp 15 05/11/24 16:00 BP 86/52 05/11/24 11:00 Pulse Ox 100 05/11/24 16:00 FiO2 50 05/03/24 20:00 Intake & Output 05/10/24 05/11/24 05/11/24 18:59 06:59 18:59 Intake Total 1099 313 743.147 Output Total 935 034 5893 Balance 399 -587 -406.853 Weight 60.2 kg Intake: IV 399 313 307 0.9 PRESSURE BAG 39 33 27 Albumin Human 25% 50 ml 50 In Empty Bag 1 bag @ 50 mls/hr IVPB ONCE ONE Rx#: [id number] Cefepime 1 gm In Sodium 50 100 Chloride 0.9% 50 ml @ 12. 5 mls/hr IVPB Q12H [facility] Rx #:[id number] Cefepime 2 gm In Sodium 100 100 Chloride 0.9% 100 ml @ 25 mls/hr IVPB Q8HR [facility] Rx# :[id number] Sodium Chloride 0.9% 1, 260 180 80 000 ml @ 30 mls/hr IV . Q24H [facility] Rx#:[id number] Intake, IV Titration 86.147 Amount Milrinone-D5w Pmx 20 mg 86.147 In Dextrose/Water 1 100ml .bag @ 0.1 MCG/KG/MIN 1. 791 mls/hr IV .Q24H [facility] Rx#:[id number] Oral 700 350 Output: Urine 537 495 9465 Straight 250 Other: Voiding Method Bedside Commode Bedside Commode Bedside Commode Bedpan # Bowel Movements 0 0 0 ABP, PAP, CO, CI - Last Documented Arterial Blood Pressure 126/65 Pulmonary Artery Pressure 39/22 Cardiac Output 2.4 Cardiac Index 1.5 - Exam Patient is awake, comfortable, no acute distress. Examination of the heart S1 and S2 Examination of the lungs bilateral breath sounds are heard Abdomen is soft Examination of lower extremities shows edema 1+ bilateral [employer] exam grossly intact - Labs CBC & Chem 7: 05/11/24 06:00 05/11/24 06:00 Labs: Abnormal Lab Results - Last 24 Hours (Table) 05/10/24 05/10/24 05/11/24 Range/Units 13:57 18:20 00:18 WBC (3.8-10.6) k/uL RBC (3.80-5.40) m/uL Hgb (11.4-16.0) gm/dL Hct (34.0-46.0) % MCV (80.0-100.0) fL RDW (11.5-15.5) % Neutrophils # (Manual) (1.3-7.7) k/uL Nucleated RBCs (0-0) /100 WBC Sodium (137-145) mmol/L Potassium (3.5-5.1) mmol/L Chloride (98-107) mmol/L Carbon Dioxide (22-30) mmol/L BUN (7-17) mg/dL Creatinine (0.52-1.04) mg/dL Glucose (74-99) mg/dL POC Glucose (mg/dL) 119 H (70-110) mg/dL AST (14-36) U/L ALT (4-34) U/L Alkaline Phosphatase (38-126) U/L Total Protein (6.3-8.2) g/dL Albumin (3.5-5.0) g/dL Procalcitonin 1.06 H (0.02-0.50) ng/mL Urine Appearance Cloudy H (Clear) Urine Protein 1+ H (Negative) Urine Blood Large H (Negative) Ur Leukocyte Esterase Large H (Negative) Urine RBC >182 H (0-5) /hpf Urine WBC >182 H (0-5) /hpf Urine WBC Clumps Many H (None) /hpf Urine Bacteria Many H (None) /hpf Urine Mucus Rare H (None) /hpf 05/11/24 05/11/24 05/11/24 Range/Units 06:00 06:00 06:11 WBC 11.7 H (3.8-10.6) k/uL RBC 2.95 L (3.80-5.40) m/uL Hgb 9.5 L (11.4-16.0) gm/dL Hct 30.1 L (34.0-46.0) % MCV 102.0 H (80.0-100.0) fL RDW 23.5 H (11.5-15.5) % Neutrophils # (Manual) 9.90 H (1.3-7.7) k/uL Nucleated RBCs 28 H (0-0) /100 WBC Sodium 123 L (137-145) mmol/L Potassium 5.3 H (3.5-5.1) mmol/L Chloride 94 L (98-107) mmol/L Carbon Dioxide 21 L (22-30) mmol/L BUN 93 H (7-17) mg/dL Creatinine 1.21 H (0.52-1.04) mg/dL Glucose 116 H (74-99) mg/dL POC Glucose (mg/dL) 131 H (70-110) mg/dL AST 363 H (14-36) U/L ALT 446 H (4-34) U/L Alkaline Phosphatase 162 H (38-126) U/L Total Protein 5.3 L (6.3-8.2) g/dL Albumin 3.1 L (3.5-5.0) g/dL Procalcitonin (0.02-0.50) ng/mL Urine Appearance (Clear) Urine Protein (Negative) Urine Blood (Negative) Ur Leukocyte Esterase (Negative) Urine RBC (0-5) /hpf Urine WBC (0-5) /hpf Urine WBC Clumps (None) /hpf Urine Bacteria (None) /hpf Urine Mucus (None) /hpf 05/11/24 05/11/24 Range/Units 11:44 16:52 WBC (3.8-10.6) k/uL RBC (3.80-5.40) m/uL Hgb (11.4-16.0) gm/dL Hct (34.0-46.0) % MCV (80.0-100.0) fL RDW (11.5-15.5) % Neutrophils # (Manual) (1.3-7.7) k/uL Nucleated RBCs (0-0) /100 WBC Sodium (137-145) mmol/L Potassium (3.5-5.1) mmol/L Chloride (98-107) mmol/L Carbon Dioxide (22-30) mmol/L BUN (7-17) mg/dL Creatinine (0.52-1.04) mg/dL Glucose (74-99) mg/dL POC Glucose (mg/dL) 186 H 116 H (70-110) mg/dL AST (14-36) U/L ALT (4-34) U/L Alkaline Phosphatase (38-126) U/L Total Protein (6.3-8.2) g/dL Albumin (3.5-5.0) g/dL Procalcitonin (0.02-0.50) ng/mL Urine Appearance (Clear) Urine Protein (Negative) Urine Blood (Negative) Ur Leukocyte Esterase (Negative) Urine RBC (0-5) /hpf Urine WBC (0-5) /hpf Urine WBC Clumps (None) /hpf Urine Bacteria (None) /hpf Urine Mucus (None) /hpf Assessment and Plan Assessment: 1. Chronic kidney disease stage IIIa with baseline creatinine 1-1.3 secondary to nephrosclerosis. 2. Status post aortic valve replacement and mitral valve repair May 03, 2024. On Primacor. 3. Mild hyperkalemia secondary to underlying CKD and use of KHADIJAH inhibitor. Resolved. 4. Anemia. Iron deficiency noted. Status post IV iron completed May 08, 2024. 5. Volume overload. 6. Hypervolemic hyponatremia. Urine sodium less than 20 and urine osmolality 418. TSH normal. Pressure maintained on milrinone which is based in dextrose, contributing to hyponatremia 7. Acute kidney injury, ATN, nonoliguric secondary to hypotension Plan: [place] x 1 Diurese patient Continue with urea Consider adding midodrine Repeat labs in a.m.
[2024-05-11 19:42] LABS: Glucose,Whole Blood 177 mg/dL (70-110)
[2024-05-11] MEDS: FUROSEMIDE 10 MG/ML 2 ML VIAL IV ONE (19:47)
--- NOTE | 2024-05-11 21:46 | P.PN ---
Progress Note - Text Progress Note Date: 05/11/24 - Chief Complaint Aortic valve replacement etc. - History of Present Illness This is a pleasant 79year-old patient, follows with Dr. Thayer. 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 Kimbrough macular degeneration. Patient yesterday underwent arctic valve replacement with a bioprosthesis, mitral valve repair with annuloplasty, exclusion of left atrial appendage using a clip,. Today patient is up in a chair. Extubated. Drips include IV insulin, milrinone, amiodarone. Plan to being switched over to p.o. Paced rhythm. Has to chest tubes mediastinal. Clear liquid diet. Doing about 1000 cc on incentive spirometry. May 05: Sitting up in a recliner. Slight shortness of breath. On IV milrinone and IV heparin drip. Paced rhythm. [address] Eating fair. Been taken off insulin drip. May 06: Saw this afternoon. Up in a recliner. Did transfer from the bed to the chair. Some shortness of breath. A-fib. Given further IV loading IV amiodarone. Remains on IV milrinone. Chest tubes are out. Palacios catheter in place. Eating fair. Sodium a bit worse. Received IV Lasix and albumin. May 07: Up in a recliner. . Palacios catheter remains in place. Tired. Eating fair. Blood pressure remains lower side.-IV milrinone. On hydralazine for afterload reduction. 5 L nasal cannula. Received IV Lasix 20 mg today. Remains in atrial fibrillation. Chest x-ray shows pleural effusion/vascular congestion. May 08: ICU. Up in a recliner. Some shortness of breath. Palacios catheter. Patient switched to oral amiodarone. On 4 L nasal cannula. Eating some. Had a bowel movement. Patient been taken off IV milrinone. Remains in A-fib. Tired. LFTs have bumped up.-Note patient is on amiodarone. To switch to p.o. Could be ischemic hepatitis component. [IV amiodarone discontinued yesterday] May 09: ICU. In a recliner. Remains a bit short of breath. Tired. Eating some. Has been in and out of A-fib with paced rhythm. Remains of IV milrinone. On 4.5 L nasal cannula. Chest x-ray film personally reviewed by me-some scattered infiltrates. Urea added by nephrology for hyponatremia. May 10: ICU. Up in the recliner. Remains tired a bit short of breath. Had a BM yesterday. Patient getting IV albumin. Back on IV milrinone. Since patient is in and out of atrial fibrillation. Further increase in LFTs. Sodium down to 124. 1 dose of tolvaptan given per nephrology. Did text down from cardiothoracic team. Amiodarone should be held given LFTs much elevated. Probable UTI-IV cefepime started by ID. Hydralazine held today May 11: ICU. Up in a recliner. Yesterday underwent left-sided thoracentesis 100 cc removed. Patient dose of amiodarone is being cut back from tomorrow to 200 mg twice daily. Remains on IV cefepime. Also on IV milrinone for hypertension. Also remains on urea twice daily for hyponatremia. Also dose of hydralazine has been cut back. To 25 mg twice daily. Patient been off for urinary catheter at least for 24 hours. Patient did ambulate in the hallway with the staff. Some shortness of breath Active Medications Acetaminophen (Acetaminophen Tab 325 Mg Tab) 650 mg PO Q4HR PRN PRN Reason: Fever And/ Or Mild Pain (1-3) Last Admin: 05/11/24 20:07 Dose: 650 mg Albuterol/Ipratropium (Ipratropium-Albuterol 3 Ml Neb) 3 ml INHALATION RT-Q2H PRN PRN Reason: Shortness Of Breath Or Wheezing Last Admin: 05/08/24 01:40 Dose: 3 ml Albuterol/Ipratropium (Ipratropium-Albuterol 3 Ml Neb) 3 ml INHALATION RT-QID [facility] Last Admin: 05/11/24 21:14 Dose: 3 ml Amiodarone HCl (Amiodarone 200 Mg Tab) 400 mg PO BID [facility] Stop: 05/11/24 22:00 Last Admin: 05/11/24 20:09 Dose: Not Given Amiodarone HCl (Amiodarone 200 Mg Tab) 200 mg PO BID [facility] Ascorbic Acid (Ascorbic Acid 500 Mg Tab) 500 mg PO DAILY [facility] Last Admin: 05/11/24 08:46 Dose: 500 mg Aspirin (Aspirin 81 Mg) 81 mg PO DAILY [facility] Last Admin: 05/11/24 08:46 Dose: 81 mg Benzocaine/Menthol (Benzocaine/Menthol Lozeng 1 Each Lozenge) 1 each MUCOUS MEM Q2H PRN PRN Reason: Sore Throat Last Admin: 05/11/24 14:56 Dose: 1 each Bisacodyl (Bisacodyl 10 Mg Supp) 10 mg RECTAL DAILY PRN PRN Reason: Constipation Cholecalciferol (Cholecalciferol 25 Mcg (1000 Iu) Tablet) 75 mcg PO DAILY [facility] Last Admin: 05/11/24 08:44 Dose: 75 mcg Clopidogrel Bisulfate (Clopidogrel 75 Mg Tab) 75 mg PO DAILY [facility] Last Admin: 05/11/24 08:47 Dose: 75 mg Dextrose/Water (Dextrose 50% Syringe 50 Ml) 25 ml IVP PER PROTOCOL PRN; Protocol PRN Reason: Hypoglycemia Dextrose/Water (Dextrose 50% Syringe 50 Ml) 50 ml IVP PER PROTOCOL PRN; Protocol PRN Reason: Hypoglycemia Last Admin: 05/03/24 14:31 Dose: 50 ml Heparin Sodium (Porcine) (Heparin Sodium,Porcine 5,000 Unit/Ml 1 Ml Vial) 5,000 unit SQ Q8HR [facility] Last Admin: 05/11/24 16:20 Dose: 5,000 unit Hydralazine HCl (Hydralazine Hcl 25 Mg Tab) 25 mg PO Q12HR [facility] Last Admin: 05/11/24 20:08 Dose: Not Given Calcium Gluconate/Sodium (Chloride 2 gm/ IV Solution) 100 mls @ 100 mls/hr IVPB ONCE PRN PRN Reason: Ionized Calcium less than 4.4 Stop: 06/02/24 13:59 Milrinone Lactate/Dextrose 20 (mg/ IV Solution) 100 mls @ 1.791 mls/hr IV .Q24H [facility] Last Admin: 05/11/24 13:03 Dose: 0.1 mcg/kg/min, 1.791 mls/hr Cefepime HCl 1 gm/ Sodium (Chloride) 50 mls @ 12.5 mls/hr IVPB Q12H [facility] Last Admin: 05/11/24 13:37 Dose: 12.5 mls/hr Insulin Human Lispro (Insulin Lispro (Humalog) 100 Unit/Ml 10 Ml Vl) 0 unit SQ ACHS [facility]; Protocol Last Admin: 05/11/24 20:06 Dose: 1 unit Lactobacillus Acidophilus (Lactobacillus Acidophilus/Pect 1 Each Capsule) 1 each PO BID [facility] Last Admin: 05/11/24 20:07 Dose: 1 each Melatonin (Melatonin 3 Mg Tablet) 6 mg PO HS [facility] Last Admin: 05/11/24 20:07 Dose: 6 mg Metoclopramide HCl (Metoclopramide 5 Mg/Ml 2 Ml Vial) 10 mg IVP Q4H PRN PRN Reason: Nausea And Vomiting Last Admin: 05/07/24 07:04 Dose: 10 mg Metoprolol Tartrate (Metoprolol Tartrate 25 Mg Tab) 25 mg PO BID [facility] Last Admin: 05/11/24 20:08 Dose: Not Given Miscellaneous Information (Potassium Replacement Protocol 1 Each Misc) 1 each MISCELLANE DAILY PRN; Protocol PRN Reason: Per Protocol Miscellaneous Information (Magnesium Replacement Protocol 1 Each Misc) 1 each MISCELLANE DAILY PRN; Protocol PRN Reason: Per Protocol Multivitamins/Minerals (Vit A,C & O-Zjewgx-Rxbkbfmr 1 Each Tab) 1 each PO BID [facility] Last Admin: 05/11/24 20:06 Dose: 1 each Ondansetron HCl (Ondansetron 4 Mg/2 Ml Vial) 4 mg IVP Q6HR PRN PRN Reason: Nausea And Vomiting Last Admin: 05/11/24 08:54 Dose: 4 mg Pantoprazole Sodium (Pantoprazole 40 Mg Tablet) 40 mg PO AC-BRKFST [facility] Last Admin: 05/11/24 06:29 Dose: 40 mg Senna/Docusate Sodium (Sennosides-Docusate Sodium 1 Each Tab) 2 each PO HS [facility] Last Admin: 05/11/24 20:07 Dose: 2 each Sodium Chloride (Sodium Chloride 0.9% Flush 10 Ml Syringe) 10 ml IV BID [facility] Last Admin: 05/11/24 20:09 Dose: 10 ml Urea (Urea 15 Gm Powd.Pack) 15 gm PO BID [facility] Last Admin: 05/11/24 20:05 Dose: 15 gm Social history: Lives alone. Denies any alcohol or smoking history. Physical examination: VITAL SIGNS: Afebrile, 70, 23, 111 x 60, 95% on 3 L GENERAL:, up in a recliner, awake EYES: Pupils equal. Conjunctiva clifford l. HEENT: External appearance of nose and ears normal, oral cavity grossly normal. Decreased hearing NECK: JVD unable to assess; masses not palpable. HEART: Heart sounds irregular; Venodyne boots LUNGS: Respiratory rate increased; i diminished breath sounds. ABDOMEN: Soft, nontender, liver spleen not palpable, no masses palpable. No Palacios catheter PSYCH: Alert and oriented x3; mood and affect, tired. MUSCULOSKELETAL:No Clubbing/cyanosis;muscles-grossly intact. OA INVESTIGATIONS, reviewed in the clinical context: May 11: White count 11.7 hemoglobin 9.5 platelets 190 sodium 123 potassium 5.3 BUN 93 creatinine 1.21 AST 363 ALT 446 2D echo: EF 45 to 50%. Atypical septal motion. Both atria enlarged. Bioprosthetic aortic valve stable.. No pericardial effusion May 10: White count 18.2 hemoglobin 8.8 platelets 160 sodium 124 potassium 4.8 BUN 75 creatinine 1.26 AST 435 ALT 441 CRP 17.2. UA positive for leukoesterase WBC May 09: White count 17 hemoglobin 9.3 sodium 127 potassium 5 BUN 43 creatinine 1.08 ABG: pH 7.39 pO2 less than 30 May 08: White count 15.1 hemoglobin 9 platelets 139 sodium 128 potassium 4.9 creatinine 1.01 AST 325 ALT 218 May 07: White count 11.9 hemoglobin 9.2 sodium 126 potassium 4.4 BUN 33 creatinine 0.99 May 06: White count 14.1 hemoglobin 9.3 platelets 95 sodium 126 potassium 4.9 BUN 29 creatinine 0.90 May 05: White count 12.4 hemoglobin 9.4 platelets 93 potassium 4.6 creatinine 0.74 May 04, 2024: White count 8.7 hemoglobin 9.5 platelets 64 sodium 137 potassium 5.6 BUN 19 creatinine 0.87 magnesium 2.5 iron 16 TIBC 154% saturation 10.3 transferrin 110 ferritin 176 Chest x-ray film personally reviewed by me-some venous prominence. Pacemaker Previous April 27, 2024: Hemoglobin 14.5 platelets 210 2D echocardiogram [April 29, 2023] EF 40%. Moderate MR. Severe TR. Severe pulmonary hypertension. Severe AR. Cardiac catheterization [April 2022] mild nonobstructive CAD Assessment plan: -aorctic valve replacement with a bioprosthesis, mitral valve repair with annuloplasty, exclusion of left atrial appendage using a clip, on May 03, [address] Hammond [Prior moderate mitral regurgitation, severe tricuspid regurgitation, severe aortic regurgitation] -Persistent atrial fibrillation., With patient being in and out of atrial fibrillation Lopressor. Cordarone -Acute hepatitis: Possibly combination of hypotension and being on amiodarone. Amiodarone dose has been cut back by cardiothoracic team. -Acute hypoxic respiratory failure secondary to pulmonary edema/pleural effusion: Currently 3 L nasal cannula -Acute postprocedure blood loss anemia expected from surgery Follow H&H -Dilutional thrombocytopenia. Preoperative platelets 210: Resolved -Left pleural effusion, possibly secondary to CHF Pulmonary following. 700 cc left thoracentesis done May 10 -Hyperkalemia: Corrected Calcium gluconate, insulin given. -Hyponatremia likely hypervolemic, slow to respond Follow fluid status closely. Encourage oral intake. Tolvaptan given. Anuria being followed by nephrology -Hypoalbuminemia, multifactorial: Received IV albumin -Acute UTI with cystitis secondary to Palacios catheter IV cefepime -Hard of hearing -Acute on chronic congestive heart failure exacerbation from mild systolic dysfunction nonischemic cardiomyopathy EF 45 to 50% Received IV Lasix -Severe secondary pulmonary hypertension -Hypotension, cardiac On IV milrinone-discontinue -Primary osteoarthritis Tylenol as needed -Colonic diverticulosis, asymptomatic -Chronic kidney disease stage IIIa, baseline creatinine from 1 2-1.3, secondary nephrosclerosis Follows with Dr. Kimbrough outpatient -Pacemaker 2017, for sick sinus syndrome -Full code Discussed with patient. Thank you Dr. Hammond Past Medical History Past Medical History: Atrial Fibrillation, Heart Failure, CVA/TIA, Eye Disorder, Hearing Disorder / Deafness, Hyperlipidemia, Hypertension, Osteoarthritis (OA), Renal Disease, Skin Disorder Additional Past Medical History / Comment(s): SOB in the evening and through the night has improved with med changes. Tinnitus, bilateral hearing aid use. Diverticular disease, hemorrhoids. Hx kidney stones. hx Anemia. 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 Stage 3 kidney disease. Macular degeneration left eye. Small hiatal hernia. Reddness to cheeks, at times feels tingling. watching shadow by liver. History of Any Multi-Drug Resistant Organisms: None Reported Past Surgical History: Adenoidectomy, Appendectomy, Section, Heart Catheterization, Pacemaker, Tonsillectomy Additional Past Surgical History / Comment(s): SINUS SURGERY, section X3, CHRISTY, colonoscopy. Past Anesthesia/Blood Transfusion Reactions: No Reported Reaction Additional Past Anesthesia/Blood Transfusion Reaction / Comm: Hx blood transfusion with no issues 50 yrs ago. Type of Cardiac Device: Permanent Pacemaker Device Placement Date:: 01/2017 Left chest Smoking Status: Never smoker
[2024-05-12 06:14] LABS: ALT 426 U/L (4-34); AST 294 U/L (14-36); African American GFR (CKD) 56 (>60 ml/min/1.73 sqM); Albumin 3.1 g/dL (3.5-5.0); Alkaline Phosphatase 152 U/L (38-126); Anion Gap 11 mmol/L; Blood Urea Nitrogen 93 mg/dL (7-17); Calcium 8.9 mg/dL (8.4-10.2); Carbon Dioxide 21 mmol/L (22-30); Chloride 101 mmol/L (98-107); Glucose 99 mg/dL (74-99); Non-African American GFR(CKD) 49 (>60 ml/min/1.73 sqM); Potassium 4.6 mmol/L (3.5-5.1); Sodium 133 mmol/L (137-145); Total Bilirubin 1.1 mg/dL (0.2-1.3); Total Protein 5.4 g/dL (6.3-8.2)
[2024-05-12 06:24] LABS: Anisocytosis Moderate; HCT 27.9 % (34.0-46.0); Hypochromasia Moderate; MCH 32.4 pg (25.0-35.0); MCHC 32.1 g/dL (31.0-37.0); MCV 100.9 fL (80.0-100.0); Macrocytosis Moderate; Mean Platelet Volume 9.6; Platelet Count 174 k/uL (150-450); Poikilocytosis Slight; RBC 2.77 m/uL (3.80-5.40); RDW 23.9 % (11.5-15.5); WBC 12.4 k/uL (3.8-10.6)
[2024-05-12 06:45] LABS: Glucose,Whole Blood 111 mg/dL (70-110)
--- NOTE | 2024-05-12 07:43 | XR ---
EXAMINATION TYPE: XR chest 1V portable DATE OF EXAM: 05/12/2024 5:39 AM COMPARISON: Chest radiograph from one day prior. CLINICAL INDICATION: Female, 79 years old with history of Postcardiac surgery; [facility] TECHNIQUE: XR chest 1V portable Frontal view of the chest. FINDINGS: Lungs/Pleura: There is no evidence of pleural effusion, focal consolidation, or pneumothorax. Pulmonary vascularity: Unremarkable. Heart/mediastinum: Cardiomediastinal silhouette is unremarkable. Atherosclerotic calcifications are seen in the aorta. Post aortic valve repair changes. Left atrial appendage occlusion device is presen t. Two lead cardiac conduction device overlying the left hemithorax with lead tips projecting over th e right ventricle and right atrium. Musculoskeletal: No acute osseous pathology. Midline sternotomy wires are noted. Other findings: None IMPRESSION: Stable, Small bilateral pleural effusions are greater on left with cardiomegaly. [facility], , 05/12/2024 7:41 AM
[2024-05-12] MEDS: AMIODARONE 200 MG TAB PO SCH (08:33)
--- NOTE | 2024-05-12 09:01 | P.PN ---
Subjective Progress Note Date: 05/12/24 Principal diagnosis: Severe aortic valve regurgitation, moderate mitral valve regurgitation, mild to moderate tricuspid valve regurgitation, and mild pulmonary hypertension. Previo us medical history of moderate left ventricular dysfunction, chronic heart failure with reduced ejection fraction, hypertension, chronic kidney disease stage III, iron deficiency anemia, paroxysmal atrial fibrillation with cardioversion in 2023 on Eliquis for anticoagulation status post permanent dual- chamber pacemaker, embolic stroke with full recovery, hard of hearing, osteoarthritis, mild lung disease, COVID in 2021, and lifelong non-smoker. POD #9 aortic valve replacement using a 19 mm Inspiris pericardial bioprosthesis, mitral valve repair using a posterior annuloplasty band 26 mm annuloflex, exclusion of the left atrial appendage using a 35mm AtriClip, and transesophageal echocardiogram and epiaortic scanning. Postoperative blood loss anemia and thrombocytopenia, expected given car diopulmonary bypass and hemodilution Hypervolemic hyponatremia Transaminitis, felt to be from volume overload Leukocytosis, probable urinary tract infection The patient was seen and examined sitting up in recliner in the intensive care unit in no acute distress. She denies significant pain, denies shortness of breath currently. Currently in sinus rhythm, blood pressure better this morning. Continues on IV Primacor. IV Lasix was ordered yesterday, patient diuresed over 4 L. This morning sodium is 133, BUN is 93, creatinine 1.09, potassium 4.6. Continues on amiodarone for A-fib. Continues on hydralazine for afterload reduction although patient has not received a dose since Friday ev en due to systolic blood pressure. Remains on 2 L nasal cannula with oxygen saturation in the mid 90s, better incentive spirometry effort. Left brachial arterial line remains. Chest x-ray, lab work reviewed. Ambulatory in the hallway with nursing staff. No other new concerns. Objective - Vital Signs Vital signs: Vital Signs Temp 98 F 05/12/24 06:00 Pulse 71 05/12/24 08:45 Resp 18 05/12/24 08:45 BP 89/69 05/11/24 20:00 Pulse Ox 95 05/12/24 08:29 FiO2 50 05/03/24 20:00 Intake & Output 05/11/24 05/12/24 05/12/24 18:59 06:59 18:59 Intake Total 849.147 39 Output Total 1850 2300 Balance -1000.853 -2261 Weight 59 kg Intake: IV 313 39 0.9 PRESSURE BAG 33 39 Cefepime 1 gm In Sodium 100 Chloride 0.9% 50 ml @ 12. 5 mls/hr IVPB Q12H [facility] Rx #:[id number] Cefepime 2 gm In Sodium 100 Chloride 0.9% 100 ml @ 25 mls/hr IVPB Q8HR [facility] Rx# :[id number] Sodium Chloride 0.9% 1, 80 000 ml @ 30 mls/hr IV . Q24H [facility] Rx#:[id number] Intake, IV Titration 86.147 Amount Milrinone-D5w Pmx 20 mg 86.147 In Dextrose/Water 1 100ml .bag @ 0.1 MCG/KG/MIN 1. 791 mls/hr IV .Q24H [facility] Rx#:[id number] Oral 450 Output: Urine 185 2300 Other: Voiding Method Bedside Commode Bedside Commode # Bowel Movements 0 ABP, PAP, CO, CI - Last Documented Arterial Blood Pressure 132/66 Pulmonary Artery Pressure 39/22 Cardiac Output 2.4 Cardiac Index 1.5 - Exam CONSTITUTIONAL: Appears comfortable, cooperative, no acute distress RESPIRATORY: Lungs sounds diminished in the bases bilaterally. Respirations even, nonlabored. Currently on 2 L nasal cannula with oxygen saturation 93%. Able to achieve 1000 mL on incentive spirometry. Strong cough. CARDIOVASCULAR: S1, S2 present. Regular rate and rhythm, sinus rhythm on telemetry. Sternum stable. Palpable peripheral pulses bilaterally. Trace bilateral upper extremity and thigh edema present. No calf pain or tenderness noted. Heart hugger in place with patient demonstrating appropriate use. Antiembolism stockings, SCDs present. GASTROINTESTINAL: Abdomen soft, nontender, nondistended. Active bowel sounds present 4 quadrants. Tolerating diet. Positive bowel movement 05/09 GENITOURINARY: Continues to void. Output 4150 mL in the last 24 hours INTEGUMENTARY: Skin is warm and dry with evidence of good perfusion. Anterior chest incision well approximated and covered with dry intact dressing NEUROLOGIC: Cranial nerves II through XII intact MUSKULOSKELETAL: Able to move all extremities, strength equal bilaterally, gait normal PSYCHIATRIC: Alert and oriented to person place and time, appropriate affect, intact judgment and insight INVASIVE LINES AND TUBES: Atrial epicardial pacemaker wires present, grounded. Left brachial arterial line present - Allied health notes Allied health notes reviewed: nursing - Labs CBC & Chem 7: 05/12/24 06:00 05/12/24 06:00 Labs: Abnormal Lab Results - Last 24 Hours (Table) 05/11/24 05/11/24 05/11/24 Range/Units 06:00 11:44 16:52 WBC 11.7 H (3.8-10.6) k/uL RBC (3.80-5.40) m/uL Hgb (11.4-16.0) gm/dL Hct (34.0-46.0) % MCV (80.0-100.0) fL RDW (11.5-15.5) % Neutrophils # (Manual) 9.90 H (1.3-7.7) k/uL Nucleated RBCs 28 H (0-0) /100 WBC Sodium (137-145) mmol/L Carbon Dioxide (22-30) mmol/L BUN (7-17) mg/dL Creatinine (0.52-1.04) mg/dL POC Glucose (mg/dL) 186 H 116 H (70-110) mg/dL AST (14-36) U/L ALT (4-34) U/L Alkaline Phosphatase (38-126) U/L Total Protein (6.3-8.2) g/dL Albumin (3.5-5.0) g/dL 05/11/24 05/12/24 05/12/24 Range/Units 19:41 06:00 06:00 WBC 12.4 H (3.8-10.6) k/uL RBC 2.77 L (3.80-5.40) m/uL Hgb 9.0 L (11.4-16.0) gm/dL Hct 27.9 L (34.0-46.0) % MCV 100.9 H (80.0-100.0) fL RDW 23.9 H (11.5-15.5) % Neutrophils # (Manual) (1.3-7.7) k/uL Nucleated RBCs (0-0) /100 WBC Sodium 133 L (137-145) mmol/L Carbon Dioxide 21 L (22-30) mmol/L BUN 93 H (7-17) mg/dL Creatinine 1.09 H (0.52-1.04) mg/dL POC Glucose (mg/dL) 177 H (70-110) mg/dL AST 294 H (14-36) U/L ALT 426 H (4-34) U/L Alkaline Phosphatase 152 H (38-126) U/L Total Protein 5.4 L (6.3-8.2) g/dL Albumin 3.1 L (3.5-5.0) g/dL 05/12/24 Range/Units 06:33 WBC (3.8-10.6) k/uL RBC (3.80-5.40) m/uL Hgb (11.4-16.0) gm/dL Hct (34.0-46.0) % MCV (80.0-100.0) fL RDW (11.5-15.5) % Neutrophils # (Manual) (1.3-7.7) k/uL Nucleated RBCs (0-0) /100 WBC Sodium (137-145) mmol/L Carbon Dioxide (22-30) mmol/L BUN (7-17) mg/dL Creatinine (0.52-1.04) mg/dL POC Glucose (mg/dL) 111 H (70-110) mg/dL AST (14-36) U/L ALT (4-34) U/L Alkaline Phosphatase (38-126) U/L Total Protein (6.3-8.2) g/dL Albumin (3.5-5.0) g/dL Microbiology - Last 24 Hours (Table) 05/10/24 13:57 Blood Culture - Preliminary Blood - Imaging and Cardiology Chest x-ray: report reviewed, image reviewed Assessment and Plan Assessment: Severe aortic valve regurgitation, status post aortic valve replacement Moderate mitral valve regurgitation, status post mitral valve repair Mild to moderate tricuspid valve regurgitation Mild pulmonary hypertension Postoperative blood loss anemia and thrombocytopenia, expected given cardiopulmo nary bypass and hemodilution Hypervolemic hyponatremia Transaminitis, felt to be from volume overload Leukocytosis, felt to be from urinary tract infection History of chronic heart failure with reduced ejection fraction, EF 40% Hypertension Chronic kidney disease stage III Iron deficiency anemia Paroxysmal atrial fibrillation with cardioversion in 2023 on Eliquis for anticoagulation status post permanent dual-chamber pacemaker, status post ligation of the left atrial appendage Embolic stroke with full recovery in 2016 Mild lung disease, preoperative FEV1 73% of predicted COVID in 202 Lifelong non-smoker Plan: Continue to maximize medical therapy with low dose aspirin, Plavix and beta- pari. Will increase beta-pari therapy when tolerated Continue hydralazine for afterload reduction with hold parameters Discontinue IV Primacor Continue oral amiodarone for A-fib prophylaxis. No anticoagulation until all lines and tubes have been discontinued Will give another 40 mg IV push Lasix today No statin as the patient is sensitive to statins, no hyperlipidemia present Wean oxygen as tolerated. Encourage incentive spirometry use 10 times every hour while awake. Bronchodilators per pulmonology. Will monitor daily labs and chest x-rays, electrolyte replacement per protocol Increase activity, ambulate as tolerated. PT/OT/cardiac rehab following GI/DVT prophylaxis Pain control per current medication regimen. No Toradol due to the patient's chronic kidney disease. Insulin management per internal medicine, preoperative hemoglobin A1c 6.1% May bladder scan and straight cath for greater than 300 mL residual Continue to monitor record strict accurate intake and output. Antibiotics per infectious disease More recommendations to follow based on patient's clinical course.
[2024-05-12] MEDS: FUROSEMIDE 10 MG/ML 4 ML VIAL IV STA (09:46)
[2024-05-12] MEDS: FUROSEMIDE 10 MG/ML 4 ML VIAL IV SCH (09:47)
--- NOTE | 2024-05-12 10:03 | P.PN ---
Subjective Progress Note Date: 05/12/24 The patient is a 79-year-old female who is postop day 9 after aortic valve replacement and mitral valve repair patient also has known history of persistent atrial fibrillation and sick sinus syndrome status post permanent pacemaker. Patient had been feeling well postoperatively but chest x-ray showed large left pleural effusion and underwent thoracentesis, draining 700 mL. Patient interviewed and examined sitting up in the recliner chair. She states she is gradually feeling better every day. Her goal is to ambulate 4 times in the hallway throughout the day. No current chest discomfort or shortness of breath. GENERAL: Well-appearing, well-nourished and in no acute distress. NECK: Supple without JVD or thyromegaly. LUNGS: Breath sounds diminished to auscultation bilaterally. Respiration equal and unlabored. No wheezes, rales or rhonchi. HEART: Irregular rate and rhythm without murmurs, rubs or gallops. S1 and S2 heard. EXTREMITIES: Normal range of motion, no edema. No clubbing or cyanosis. Peripheral pulses intact and strong. IMPRESSION: Severe aortic valve regurgitation, status post aortic valve replacement Moderate mitral valve regurgitation, status post mitral valve repair Transaminitis History of chronic heart failure with reduced ejection fraction, EF 40% Hypertension Chronic kidney disease stage III Paroxysmal atrial fibrillation Sick sinus syndrome status post permanent dual-chamber pacemaker Embolic stroke with full recovery in 2017 PLAN: Continue supportive treatment Discussed the importance of aggressive pulmonary hygiene and ambulation Further recommendations to be based upon clinical course I am dictating on behalf of Dr John Niño's history/physical and assessment/plan. Objective - Vital Signs Vital signs: Vital Signs Temp 98 F 05/12/24 06:00 Pulse 71 05/12/24 08:45 Resp 18 05/12/24 08:45 BP 89/69 05/11/24 20:00 Pulse Ox 95 05/12/24 08:29 FiO2 50 05/03/24 20:00 Intake & Output 05/11/24 05/12/24 05/12/24 18:59 06:59 18:59 Intake Total 849.147 39 Output Total 1850 2300 Balance -1000.853 -2261 Weight 59 kg Intake: IV 313 39 0.9 PRESSURE BAG 33 39 Cefepime 1 gm In Sodium 100 Chloride 0.9% 50 ml @ 12. 5 mls/hr IVPB Q12H [facility] Rx #:[id number] Cefepime 2 gm In Sodium 100 Chloride 0.9% 100 ml @ 25 mls/hr IVPB Q8HR [facility] Rx# :[id number] Sodium Chloride 0.9% 1, 80 000 ml @ 30 mls/hr IV . Q24H [facility] Rx#:[id number] Intake, IV Titration 86.147 Amount Milrinone-D5w Pmx 20 mg 86.147 In Dextrose/Water 1 100ml .bag @ 0.1 MCG/KG/MIN 1. 791 mls/hr IV .Q24H [facility] Rx#:[id number] Oral 450 Output: Urine 1850 2300 Other: Voiding Method Bedside Commode Bedside Commode # Bowel Movements 0 ABP, PAP, CO, CI - Last Documented Arterial Blood Pressure 132/66 Pulmonary Artery Pressure 39/22 Cardiac Output 2.4 Cardiac Index 1.5 - Labs CBC & Chem 7: 05/12/24 06:00 05/12/24 06:00 Labs: Abnormal Lab Results - Last 24 Hours (Table) 05/11/24 05/11/24 05/11/24 Range/Units 06:00 11:44 16:52 WBC 11.7 H (3.8-10.6) k/uL RBC (3.80-5.40) m/uL Hgb (11.4-16.0) gm/dL Hct (34.0-46.0) % MCV (80.0-100.0) fL RDW (11.5-15.5) % Neutrophils # (Manual) 9.90 H (1.3-7.7) k/uL Nucleated RBCs 28 H (0-0) /100 WBC Sodium (137-145) mmol/L Carbon Dioxide (22-30) mmol/L BUN (7-17) mg/dL Creatinine (0.52-1.04) mg/dL POC Glucose (mg/dL) 186 H 116 H (70-110) mg/dL AST (14-36) U/L ALT (4-34) U/L Alkaline Phosphatase (38-126) U/L Total Protein (6.3-8.2) g/dL Albumin (3.5-5.0) g/dL 05/11/24 05/12/24 05/12/24 Range/Units 19:41 06:00 06:00 WBC 12.4 H (3.8-10.6) k/uL RBC 2.77 L (3.80-5.40) m/uL Hgb 9.0 L (11.4-16.0) gm/dL Hct 27.9 L (34.0-46.0) % MCV 100.9 H (80.0-100.0) fL RDW 23.9 H (11.5-15.5) % Neutrophils # (Manual) (1.3-7.7) k/uL Nucleated RBCs (0-0) /100 WBC Sodium 133 L (137-145) mmol/L Carbon Dioxide 21 L (22-30) mmol/L BUN 93 H (7-17) mg/dL Creatinine 1.09 H (0.52-1.04) mg/dL POC Glucose (mg/dL) 177 H (70-110) mg/dL AST 294 H (14-36) U/L ALT 426 H (4-34) U/L Alkaline Phosphatase 152 H (38-126) U/L Total Protein 5.4 L (6.3-8.2) g/dL Albumin 3.1 L (3.5-5.0) g/dL 05/12/24 Range/Units 06:33 WBC (3.8-10.6) k/uL RBC (3.80-5.40) m/uL Hgb (11.4-16.0) gm/dL Hct (34.0-46.0) % MCV (80.0-100.0) fL RDW (11.5-15.5) % Neutrophils # (Manual) (1.3-7.7) k/uL Nucleated RBCs (0-0) /100 WBC Sodium (137-145) mmol/L Carbon Dioxide (22-30) mmol/L BUN (7-17) mg/dL Creatinine (0.52-1.04) mg/dL POC Glucose (mg/dL) 111 H (70-110) mg/dL AST (14-36) U/L ALT (4-34) U/L Alkaline Phosphatase (38-126) U/L Total Protein (6.3-8.2) g/dL Albumin (3.5-5.0) g/dL Microbiology - Last 24 Hours (Table) 05/10/24 13:57 Blood Culture - Preliminary Blood
--- NOTE | 2024-05-12 11:00 | P.PN ---
Subjective Patient is seen for follow-up for hyponatremia. Status post Samsca yesterday and serum sodium has improved to 133 today. Milrinone has also been discontinued. Volume status seems to have improved. 24-hour urine output documented at 4.1 L. Objective - Vital Signs Vital signs: Vital Signs Temp 97.7 F 05/12/24 08:00 Pulse 73 05/12/24 10:00 Resp 15 05/12/24 10:00 BP 89/69 05/11/24 20:00 Pulse Ox 97 05/12/24 10:00 FiO2 50 05/03/24 20:00 Intake & Output 05/11/24 05/12/24 05/12/24 18:59 06:59 18:59 Intake Total 849.147 39 9 Output Total 1850 2300 300 Balance -1000.853 -2261 -291 Weight 59 kg Intake: IV 313 39 9 0.9 PRESSURE BAG 33 39 9 Cefepime 1 gm In Sodium 100 Chloride 0.9% 50 ml @ 12. 5 mls/hr IVPB Q12H [facility] Rx #:[id number] Cefepime 2 gm In Sodium 100 Chloride 0.9% 100 ml @ 25 mls/hr IVPB Q8HR [facility] Rx# :[id number] Sodium Chloride 0.9% 1, 80 000 ml @ 30 mls/hr IV . Q24H [facility] Rx#:[id number] Intake, IV Titration 86.147 Amount Milrinone-D5w Pmx 20 mg 86.147 In Dextrose/Water 1 100ml .bag @ 0.1 MCG/KG/MIN 1. 791 mls/hr IV .Q24H [facility] Rx#:[id number] Oral 450 Output: Urine 1850 2300 300 Other: Voiding Method Bedside Commode Bedside Commode # Voids 1 # Bowel Movements 0 ABP, PAP, CO, CI - Last Documented Arterial Blood Pressure 103/54 Pulmonary Artery Pressure 39/22 Cardiac Output 2.4 Cardiac Index 1.5 - Exam Patient is awake, comfortable, no acute distress. Examination of the heart S1 and S2 Examination of the lungs bilateral breath sounds are heard Abdomen is soft Examination of lower extremities shows edema 1+ bilateral [employer] exam grossly intact - Labs CBC & Chem 7: 05/12/24 06:00 05/12/24 06:00 Labs: Abnormal Lab Results - Last 24 Hours (Table) 05/11/24 05/11/24 05/11/24 Range/Units 11:44 16:52 19:41 WBC (3.8-10.6) k/uL RBC (3.80-5.40) m/uL Hgb (11.4-16.0) gm/dL Hct (34.0-46.0) % MCV (80.0-100.0) fL RDW (11.5-15.5) % Sodium (137-145) mmol/L Carbon Dioxide (22-30) mmol/L BUN (7-17) mg/dL Creatinine (0.52-1.04) mg/dL POC Glucose (mg/dL) 186 H 116 H 177 H (70-110) mg/dL AST (14-36) U/L ALT (4-34) U/L Alkaline Phosphatase (38-126) U/L Total Protein (6.3-8.2) g/dL Albumin (3.5-5.0) g/dL 05/12/24 05/12/24 05/12/24 Range/Units 06:00 06:00 06:33 WBC 12.4 H (3.8-10.6) k/uL RBC 2.77 L (3.80-5.40) m/uL Hgb 9.0 L (11.4-16.0) gm/dL Hct 27.9 L (34.0-46.0) % MCV 100.9 H (80.0-100.0) fL RDW 23.9 H (11.5-15.5) % Sodium 133 L (137-145) mmol/L Carbon Dioxide 21 L (22-30) mmol/L BUN 93 H (7-17) mg/dL Creatinine 1.09 H (0.52-1.04) mg/dL POC Glucose (mg/dL) 111 H (70-110) mg/dL AST 294 H (14-36) U/L ALT 426 H (4-34) U/L Alkaline Phosphatase 152 H (38-126) U/L Total Protein 5.4 L (6.3-8.2) g/dL Albumin 3.1 L (3.5-5.0) g/dL Microbiology - Last 24 Hours (Table) 05/10/24 18:20 Urine Culture - Final Urine,Voided 05/10/24 13:57 Blood Culture - Preliminary Blood Assessment and Plan Assessment: 1. Chronic kidney disease stage IIIa with baseline creatinine 1-1.3 secondary t o nephrosclerosis. 2. Status post aortic valve replacement and mitral valve repair May 03, 2024. On Primacor. 3. Mild hyperkalemia secondary to underlying CKD and use of KHADIJAH inhibitor. Resolved. 4. Anemia. Iron deficiency noted. Status post IV iron completed May 08, 2024. 5. Volume overload, slowly improving with diuresis 6. Hypervolemic hyponatremia. Urine sodium less than 20 and urine osmolality 418. TSH normal. Pressure maintained on milrinone which is based in dextrose, contributing to hyponatremia 7. Acute kidney injury, ATN, nonoliguric secondary to hypotension Plan: Continue to diurese patient. Decrease Lasix in a.m. Continue with urea Repeat labs in a.m.
[2024-05-12 11:25] LABS: Glucose,Whole Blood 158 mg/dL (70-110)
--- NOTE | 2024-05-12 14:38 | P.PN ---
Subjective Progress Note Date: 05/12/24 Principal diagnosis: POD #9 aortic valve replacement using a 19 mm Inspiris pericardial bioprosthesis, mitral valve repair using a posterior annuloplasty band 26 mm annuloflex, exclusion of the left atrial appendage using a 35mm AtriClip, and transesophageal echocardiogram and epiaortic scanning. This is a 79-year-old female patient being seen in the intensive care unit pos top as the patient had severe aortic valve regurgitation with mitral valve regurgitation and mild pulmonary hypertension and moderate LV dysfunction and the patient was taken to the operating room and underwent aortic valve replacement and mitral valve repair. The patient is also noted to have par oxysmal A-fib and has a pacemaker in place along with history of chronic kidney disease and previous history of embolic stroke with full recovery. The patient was brought into the intensive care and intubated on the mechanical ventilator. The patient was sedated with propofol. The patient is on the mechanical ventilator, assist-control mode rate of 12, tidal volume of 400, FiO2 of 100% with a PEEP of 5. Initial blood gases postop in the intensive care unit showed a pH of 7.57 with a pCO2 of 27 and pO2 of 256. FiO2 was dropped down to 60% and follow-up gases showed a pH of 7. 36 with a pCO2 of 47 and pO2 of 153. The patient's PA pressures were 38/28. Cardiac index was 1.7. Patient has mediastinal x2.. Chest x-ray showed adequate expansion of both lungs. No evidence of any pneumothorax. The patient has a right IJ Westbrook-Kip catheter in place. The patient is atrially paced at rate of 80. The patient is currently on low-dose norepinephrine and milrinone which is running at 0.2 mcg/kg/min. Urine output is adequate. Initial blood work showed a white cell count of 8 with a hemoglobin 9.1 and a platelet count of 66. The sodium is at 141, potassium is at 4.4, chloride is 109 with a bicarb of 25 BUN of 18 with a creatinine of 0.7. IV fluids are normal saline at rate of 50 cc an hour. No other significant events postop. On 05/04/2024, patient is being seen for a follow-up. The patient is post aortic valve replacement and mitral valve repair and the patient is postop day #2. The patient was weaned off the mechanical ventilator and the patient was extubated any major difficulties and the patient is currently on 2 L of oxygen by nasal cannula. Hemodynamically, the patient is still requiring inotropes and the patient is currently on Primacor which is running at 0.125 mcg/kg/min and the patient is off norepinephrine. Cardiac index today is at 2.3. PA pressures are 31/11. The patient remains atrially paced at a rate of 80. Urine output is noted of 30 cc an hour. Remains on amiodarone and the patient will be switched from amiodarone drip to oral amiodarone. Using incentive spirometer, pulling approximately thousand. Chest x-ray from this morning was noted and the patient has cardiomegaly and pulm vascular congestion and small bilateral pleural effu sions. Mediastinal chest tubes are still in place and output is minimal at this point in time. The patient is calm and comfortable. Denies having any specific complaints. Remains on insulin drip which is running at 1 unit an hour for adequate blood sugar control. On 05/05/2024, the patient is being seen for a follow-up. The patient is currently on her intrinsic pacemaker and she is pacing at rate of 60. Her cardiac output and index are being monitored. Earlier this morning, the cardiac index was a 2.2. The patient remains on milrinone 0.125 mcg/kg/min. Urine output is adequate. Output from the chest tubes are minimal. Using incentive spirometer. She remains on 2 L of oxygen by nasal cannula. Chest x-ray from today shows small bilateral pleural effusions and cardiomegaly. Blood work from today shows a white cell count of 12.4, hemoglobin of 9.4 and platelet count of 73. BUN is 20 with a creatinine of 0.7 and sodium is at 130. The patient was started on metoprolol 12.5 mg p.o. twice a day. She is centimeter on 12 mg p.o. daily. She remains on aspirin. Rest of the me dications remain unchanged. Midodrine was also added 5 mg p.o. 3 times daily. She is also on losartan 12.5 mg p.o. daily. She is currently postop day #2 following a aortic valve replacement and mitral valve repair. On today's evaluation 05/06/2024, the patient is being seen for a follow-up. The patient remains on 2 L of oxygen by nasal cannula. Chest x-ray findings remain unchanged the patient continues to have some small bilateral pleural effusions. The patient utilizing her intrinsic pacemaker. Urine output is in order of 30 to 40 cc an hour. She remains on milrinone at 0.25 mcg/kg/h and a cardiac index of 2.2. The patient is still inotrope dependent as the patient's cardiac output is dropping while the milrinone is being weaned. Meanwhile, the patient was given Lasix 40 mg IV push x 1. Awake and alert and communicating. No focal neurological deficits. Chest tubes have been removed. The white cell count of 14.1, hemoglobin is at 9.3 and a platelet count of 75. Sodium is at 126, BUN is 29 with a creatinine of 0.9. Potassium level is at 4.9. The patient is currently on amiodarone 200 mg p.o. daily. The patient is also on metoprolol which is currently on hold. Midodrine at 5 mg p.o. 3 times daily. Aspirin and Plavix. Hydralazine 50 mg p.o. twice daily. Oxycodone for pain control. The patient is postop day #3 following awaiting placement and mitral valve repair. On 05/07/2024, the patient is being seen for a follow-up. The patient remains on 2 L of oxygen by nasal cannula and chest x-ray still showing evidence of bilateral pleural effusion and pulm vascular congestion. The cardiac output is at 2.6 with an index of 1.8. SVR is at 1936. PA pressures are 45/25. CVP is 18. Given a dose of Lasix 20 mg IV push x 1 today. Remains in atrial fibrillat ion. Urine output is in order of 40 cc an hour and the patient remains on milrinone at 0.125 mcg/kg/h. The hemoglobin is at 9.2. White cell count is at 11.9. Platelet count is 105. BUN 33 creatinine of 0.9. Sodium levels at 126. Meanwhile, the patient is on metoprolol 12.5 mg p.o. twice a day. The patient remains on aspirin and Plavix. The patient is on hydralazine 50 mg p.o. twice daily with close monitoring of the blood pressure. Ambulating., Comfortable. Chest tubes have been removed. The patient is postop day #4 following aortic valve replacement and mitral valve repair. On 05/08/2024, the patient is awake and alert and she remains on 5 L of O2 nasal cannula. Chest x-ray essentially unchanged and shows pulm vessel congestion bilateral pleural effusions. Chest tubes have been removed. Cardiac index is ranging between 1.8 and 2 and the patient was taken off the milrinone drip. For now, the patient amiodarone 4 mg p.o. twice a day, metoprolol 12.5 mg twice daily and he was given Lasix 40 mg IV push x 1. She remains on hydralazine for afterload reduction 50 mg p.o. twice a day. Blood work shows a white cell count of 15.1, hemoglobin is at 9 and a platelet count of 139. Sodium is at 128, BUN 38 with a creatinine 1.0 and potassium dose is 4.9. LFTs are slightly elevated the patient is postop day 5 following aortic valve placement and mitral valve repair. On 05/09/2024, the patient is being seen for a follow-up. The patient remains off milrinone. The cardiac index is at 1.7 and the patient remains on 2 L of oxygen by nasal cannula. She remains atrial fibrillation. She is on amiodarone 4 mg p.o. twice a day and metoprolol 25 mg p.o. twice a day and she remains on a combination of aspirin and Plavix. The patient is also on hydralazine for afterload reduction 50 mg p.o. 3 times daily. She was given Lasix 40 mg IV push x 1 today. Chest x-ray findings are essentially unchanged and the patient has small bilateral pleural effusion and pulm vessel congestion. The white cell count is at 17, hemoglobin is at 9.3 and a platelet count is 161. Sodium levels at 127, potassium level is at 5, BUN is 43 with a creatinine of 1.07. The patient did have some mild transaminitis which is improving compared to yesterday. Chest tubes are removed. No other significant events overnight. The patient is currently on 2 L of oxygen by nasal cannula. She is ambulating. Patient was seen today on 05/10/2024, patient remains in the ICU on 4 L nasal cannula, she is still requiring milrinone at 0.1 mcg/kg/min, IV fluids at 20 cc/h, patient continues to have paced rhythm, today she underwent left-sided thoracentesis and I was able to retrieve 700 cc of serosanguineous fluid from the left pleural space. Patient tolerated the procedure well, she does not seem to be in any distress, she does feel woozy intermittently, and I believe the patient may be having episodes of low blood pressure she is on 2 L nasal cannula with O2 sats of 97%, achieving about 750 mL with her incentive spirometry. On the monitor she continues to have occasional episodes of atrial fibrillation, remains on amiodarone and she is also on metoprolol 25 twice daily, Primacor is infusing at 0.1 mcg/kg/min. Liver enzymes seems to be trending up. Episodes are being closely monitored. Chest x-ray showed evidence of bilateral pleural effusions, left more so than right, hence I went ahead and performed left-sided thoracentesis on this patient. WBC count is elevated 18.2 hemoglobin 8.8 sodium is 124 potassium 4.8 BUN is 75 creatinine 1.26 liver enzymes are elevated with AST of 435 ALT 441 and alkaline phosphatase of 180 Patient was seen today on 05/11/2024, patient is now postoperative day #8. Remains in the ICU, blood pressure seems to be marginal, denies shortness of breath denies any pain, patient is ambulating with assistance. Remains on Primacor at 0.1 mcg/kg/min, her sodium is low at 123, and there is a concern about further diuresing the patient, this is being addressed by nephrology on the case. Remains on amiodarone for atrial fibrillation, yesterday she underwent left-sided thoracentesis and 700 cc of fluid was drained. Chest x-ray today showed small tiny pleural effusions bilaterally. And there is a concern of mild pulmonary vascular congestion/pulmonary edema. O2 saturation is 90% on 4 L nasal cannula. IV fluid is at KVO. Patient was seen today on 05/12/2024, she is now postoperative day #9, remains in the ICU, sitting up in a recliner, does not seem to be in any distress, patient is on 2 L nasal cannula with O2 sats of 94%. Labs have improved, sodium is up to 133 potassium 4.6 BUN is 93 creatinine 1.09. WBC count is 12.4 hemoglobin is 9.0. Chest x-ray showed small bilateral pleural effusions not large enough to consider thoracentesis and it also showed some postoperative changes. Patient is ambulatory, she is ambulating in the hallway with assistance. Patient has been diuresed and she had significant urine output in the last 24 hours. In the meantime her sodium improved up to 133. Objective - Vital Signs Vital signs: Vital Signs Temp 97.5 F L 05/12/24 12:00 Pulse 69 05/12/24 14:00 Resp 21 05/12/24 14:00 BP 89/69 05/11/24 20:00 Pulse Ox 94 L 05/12/24 14:00 FiO2 50 05/03/24 20:00 Intake & Output 05/11/24 05/12/24 05/12/24 18:59 06:59 18:59 Intake Total 849.147 39 31 Output Total 1850 2299 2049 Balance -1000.853 -2261 Weight 59 kg Intake: IV 313 39 31 0.9 PRESSURE BAG 33 39 21 Cefepime 1 gm In Sodium 100 Chloride 0.9% 50 ml @ 12. 5 mls/hr IVPB Q12H [facility] Rx #:[id number] Cefepime 2 gm In Sodium 100 Chloride 0.9% 100 ml @ 25 mls/hr IVPB Q8HR [facility] Rx# :[id number] Sodium Chloride 0.9% 1, 80 10 000 ml @ 30 mls/hr IV . Q24H [facility] Rx#:[id number] Intake, IV Titration 86.147 Amount Milrinone-D5w Pmx 20 mg 86.147 In Dextrose/Water 1 100ml .bag @ 0.1 MCG/KG/MIN 1. 791 mls/hr IV .Q24H [facility] Rx#:[id number] Oral 450 Output: Urine 1849 2299 2049 Other: Voiding Method Bedside Commode Bedside Commode Bedside Commode # Voids 1 # Bowel Movements 0 ABP, PAP, CO, CI - Last Documented Arterial Blood Pressure 89/63 Pulmonary Artery Pressure 39/22 Cardiac Output 2.4 Cardiac Index 1.5 - Exam General: Revealed 79-year-old female in no distress, on 2 L nasal cannula RESPIRATORY: Diminished breath sounds at the bases with minimal crackles no rhonchi no wheezes CARDIOVASCULAR: Distant S1-S2, no S3 gallop, no murmur GASTROINTESTINAL: Abdomen is soft nontender no rebound no guarding INTEGUMENTARY: No rashes NEUROLOGIC: Alert oriented x 3 no gross focal deficit MUSKULOSKELETAL: No deformities and no limitation range of motion PSYCHIATRIC: Normal mood affect and no mental status examination - Labs CBC & Chem 7: 05/12/24 06:00 05/12/24 06:00 Labs: Abnormal Lab Results - Last 24 Hours (Table) 05/11/24 05/11/24 05/12/24 Range/Units 16:52 19:41 06:00 WBC 12.4 H (3.8-10.6) k/uL RBC 2.77 L (3.80-5.40) m/uL Hgb 9.0 L (11.4-16.0) gm/dL Hct 27.9 L (34.0-46.0) % MCV 100.9 H (80.0-100.0) fL RDW 23.9 H (11.5-15.5) % Sodium (137-145) mmol/L Carbon Dioxide (22-30) mmol/L BUN (7-17) mg/dL Creatinine (0.52-1.04) mg/dL POC Glucose (mg/dL) 116 H 177 H (70-110) mg/dL AST (14-36) U/L ALT (4-34) U/L Alkaline Phosphatase (38-126) U/L Total Protein (6.3-8.2) g/dL Albumin (3.5-5.0) g/dL 05/12/24 05/12/24 05/12/24 Range/Units 06:00 06:33 11:24 WBC (3.8-10.6) k/uL RBC (3.80-5.40) m/uL Hgb (11.4-16.0) gm/dL Hct (34.0-46.0) % MCV (80.0-100.0) fL RDW (11.5-15.5) % Sodium 133 L (137-145) mmol/L Carbon Dioxide 21 L (22-30) mmol/L BUN 93 H (7-17) mg/dL Creatinine 1.09 H (0.52-1.04) mg/dL POC Glucose (mg/dL) 111 H 158 H (70-110) mg/dL AST 294 H (14-36) U/L ALT 426 H (4-34) U/L Alkaline Phosphatase 152 H (38-126) U/L Total Protein 5.4 L (6.3-8.2) g/dL Albumin 3.1 L (3.5-5.0) g/dL Microbiology - Last 24 Hours (Table) 05/10/24 18:20 Urine Culture - Final Urine,Voided 05/10/24 13:57 Blood Culture - Preliminary Blood Assessment and Plan Assessment: Impression:POD #9 aortic valve replacement using a 19 mm Inspiris pericardial bioprosthesis, mitral valve repair using a posterior annuloplasty band 26 mm annuloflex, exclusion of the left atrial appendage using a 35mm AtriClip, and transesophageal echocardiogram and epiaortic scanning. Severe aortic valve regurgitation, status post aortic valve replacement Moderate mitral valve regurgitation, status post mitral valve repair Mild to moderate tricuspid valve regurgitation Mild pulmonary hypertension Postoperative blood loss anemia and thrombocytopenia, expected given cardiopulmonary bypass and hemodilution Hypervolemic hyponatremia Transaminitis, felt to be from volume overload History of chronic heart failure with reduced ejection fraction, EF 40% Hypertension Chronic kidney disease stage III Iron deficiency anemia Paroxysmal atrial fibrillation with cardioversion in 2023 on Eliquis for anticoagulation status post permanent dual-chamber pacemaker, status post ligation of the left atrial appendage Embolic stroke with full recovery in 2016 Mild lung disease, preoperative FEV1 73% of predicted Lifelong non-smoker Status post left-sided thoracentesis on 05/10/2024, 700 cc removed from the left pleural space Recommendation: Continue present supportive care measures Intermittently diurese Continue cefepime empirically Nephrology diurese the patient and improved significantly with improvement in her hyponatremia Continue ambulation as tolerated GI/DVT prophylaxis. Continue to monitor I's and O's Chest x-ray was reviewed, findings are reassuring and no need for thoracentesis again. Will continue to follow Time with Patient: Less than 30
[2024-05-12] MEDS: bisacodyL 10 MG SUPP RECTAL PRN (15:06)
--- NOTE | 2024-05-12 17:04 | P.PN ---
Subjective Progress Note Date: 05/12/24 Principal diagnosis: Reason for follow-up is leukocytosis/UTI Patient is a 79-year-old female with a past medical history significant for Atrial Fibrillation, Heart Failure, CVA/TIA, Eye Disorder, Hearing Disorder / Deafness, Hyperlipidemia, Hypertension, Osteoarthritis (OA), Renal Disease, Skin Disorder electively admitted to the hospital after the patient did have aortic valve replacement mitral valve repair, did have urinary symptoms of burning positive UA concerning for UTI elevated white count prompted this consultation. On today's evaluation that is 05/12/2024,the patient denies any fever or any chills, patient is breathing comfortably on 2 L again oxygen no chest pain or cough no nausea with no abdominal pain or diarrhea. Patient white count is 12.4, creatinine 1.09 blood and urine culture currently pending Objective - Vital Signs Vital signs: Vital Signs Temp 97.7 F 05/12/24 08:00 Pulse 74 05/12/24 11:00 Resp 17 05/12/24 11:00 BP 89/69 05/11/24 20:00 Pulse Ox 96 05/12/24 11:00 FiO2 50 05/03/24 20:00 Intake & Output 05/11/24 05/12/24 05/12/24 18:59 06:59 18:59 Intake Total 849.147 39 22 Output Total 1850 2300 1500 Balance -1000.134 -0145 -8735 Weight 59 kg Intake: IV 313 39 22 0.9 PRESSURE BAG 33 39 12 Cefepime 1 gm In Sodium 100 Chloride 0.9% 50 ml @ 12. 5 mls/hr IVPB Q12H [facility] Rx #:[id number] Cefepime 2 gm In Sodium 100 Chloride 0.9% 100 ml @ 25 mls/hr IVPB Q8HR [facility] Rx# :[id number] Sodium Chloride 0.9% 1, 80 10 000 ml @ 30 mls/hr IV . Q24H [facility] Rx#:[id number] Intake, IV Titration 86.147 Amount Milrinone-D5w Pmx 20 mg 86.147 In Dextrose/Water 1 100ml .bag @ 0.1 MCG/KG/MIN 1. 791 mls/hr IV .Q24H [facility] Rx#:[id number] Oral 450 Output: Urine 1850 2300 1500 Other: Voiding Method Bedside Commode Bedside Commode Bedside Commode # Voids 2 # Bowel Movements 0 ABP, PAP, CO, CI - Last Documented Arterial Blood Pressure 114/54 Pulmonary Artery Pressure 39/22 Cardiac Output 2.4 Cardiac Index 1.5 - Labs CBC & Chem 7: 05/12/24 06:00 05/12/24 06:00 Labs: Abnormal Lab Results - Last 24 Hours (Table) 05/11/24 05/11/24 05/12/24 Range/Units 16:52 19:41 06:00 WBC 12.4 H (3.8-10.6) k/uL RBC 2.77 L (3.80-5.40) m/uL Hgb 9.0 L (11.4-16.0) gm/dL Hct 27.9 L (34.0-46.0) % MCV 100.9 H (80.0-100.0) fL RDW 23.9 H (11.5-15.5) % Sodium (137-145) mmol/L Carbon Dioxide (22-30) mmol/L BUN (7-17) mg/dL Creatinine (0.52-1.04) mg/dL POC Glucose (mg/dL) 116 H 177 H (70-110) mg/dL AST (14-36) U/L ALT (4-34) U/L Alkaline Phosphatase (38-126) U/L Total Protein (6.3-8.2) g/dL Albumin (3.5-5.0) g/dL 05/12/24 05/12/24 05/12/24 Range/Units 06:00 06:33 11:24 WBC (3.8-10.6) k/uL RBC (3.80-5.40) m/uL Hgb (11.4-16.0) gm/dL Hct (34.0-46.0) % MCV (80.0-100.0) fL RDW (11.5-15.5) % Sodium 133 L (137-145) mmol/L Carbon Dioxide 21 L (22-30) mmol/L BUN 93 H (7-17) mg/dL Creatinine 1.09 H (0.52-1.04) mg/dL POC Glucose (mg/dL) 111 H 158 H (70-110) mg/dL AST 294 H (14-36) U/L ALT 426 H (4-34) U/L Alkaline Phosphatase 152 H (38-126) U/L Total Protein 5.4 L (6.3-8.2) g/dL Albumin 3.1 L (3.5-5.0) g/dL Microbiology - Last 24 Hours (Table) 05/10/24 18:20 Urine Culture - Final Urine,Voided 05/10/24 13:57 Blood Culture - Preliminary Blood Assessment and Plan (1) Leukocytosis Current Visit: Yes Status: Acute Code(s): D72.829 - ELEVATED WHITE BLOOD CELL COUNT, UNSPECIFIED SNOMED Code(s): 713719739 (2) UTI (urinary tract infection) Current Visit: Yes Status: Acute Code(s): N39.0 - URINARY TRACT INFECTION, SITE NOT SPECIFIED SNOMED Code(s): 18879896 Plan: 1patient with elevated white count in this patient electively admitted to hospital and is status post aortic valve replacement and mitral valve repair she did have urinary catheter postsurgery which has been discontinued yesterday now with cloudy urine difficulty urination ID clinic suspicious for urinary source to be responsible for this elevated white count and need to be treated aggressively with recent cardiac procedure 2-patient did have a positive UA blood and urine culture currently pending as well as blood culture 3-patient is afebrile white count has shown improvement initially slightly up today to continue to monitor closely and continue with cefepime Dictation was produced using [employer] dictation software. please excuse any grammatical, word or spelling errors. Time with Patient: Less than 30
[2024-05-12 17:06] LABS: Glucose,Whole Blood 136 mg/dL (70-110)
--- NOTE | 2024-05-12 19:07 | P.PN ---
Progress Note - Text Progress Note Date: 05/12/24 - Chief Complaint Aortic valve replacement etc. - History of Present Illness This is a pleasant 79year-old patient, follows with Dr. Thayer. 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 Kimbrough macular degeneration. Patient yesterday underwent arctic valve replacement with a bioprosthesis, mitral valve repair with annuloplasty, exclusion of left atrial appendage using a clip,. Today patient is up in a chair. Extubated. Drips include IV insulin, milrinone, amiodarone. Plan to being switched over to p.o. Paced rhythm. Has to chest tubes mediastinal. Clear liquid diet. Doing about 1000 cc on incentive spirometry. May 05: Sitting up in a recliner. Slight shortness of breath. On IV milrinone and IV heparin drip. Paced rhythm. [address] Eating fair. Been taken off insulin drip. May 06: Saw this afternoon. Up in a recliner. Did transfer from the bed to the chair. Some shortness of breath. A-fib. Given further IV loading IV amiodarone. Remains on IV milrinone. Chest tubes are out. Palacios catheter in place. Eating fair. Sodium a bit worse. Received IV Lasix and albumin. May 07: Up in a recliner. . Palacios catheter remains in place. Tired. Eating fair. Blood pressure remains lower side.-IV milrinone. On hydralazine for afterload reduction. 5 L nasal cannula. Received IV Lasix 20 mg today. Remains in atrial fibrillation. Chest x-ray shows pleural effusion/vascular congestion. May 08: ICU. Up in a recliner. Some shortness of breath. Palacios catheter. Patient switched to oral amiodarone. On 4 L nasal cannula. Eating some. Had a bowel movement. Patient been taken off IV milrinone. Remains in A-fib. Tired. LFTs have bumped up.-Note patient is on amiodarone. To switch to p.o. Could be ischemic hepatitis component. [IV amiodarone discontinued yesterday] May 09: ICU. In a recliner. Remains a bit short of breath. Tired. Eating some. Has been in and out of A-fib with paced rhythm. Remains of IV milrinone. On 4.5 L nasal cannula. Chest x-ray film personally reviewed by me-some scattered infiltrates. Urea added by nephrology for hyponatremia. May 10: ICU. Up in the recliner. Remains tired a bit short of breath. Had a BM yesterday. Patient getting IV albumin. Back on IV milrinone. Since patient is in and out of atrial fibrillation. Further increase in LFTs. Sodium down to 124. 1 dose of tolvaptan given per nephrology. Did text down from cardiothoracic team. Amiodarone should be held given LFTs much elevated. Probable UTI-IV cefepime started by ID. Hydralazine held today May 11: ICU. Up in a recliner. Yesterday underwent left-sided thoracentesis 100 cc removed. Patient dose of amiodarone is being cut back from tomorrow to 200 mg twice daily. Remains on IV cefepime. Also on IV milrinone for hypertension. Also remains on urea twice daily for hyponatremia. Also dose of hydralazine has been cut back. To 25 mg twice daily. Patient been off for urinary catheter at least for 24 hours. Patient did ambulate in the hallway with the staff. Some shortness of breath May 12: ICU. Up in a recliner. Breathing better. 2 L nasal cannula this afternoon. Eating fair. On amiodarone 200 mg twice daily. Remains on IV cefepime. Urea. Is being bothered by restless leg syndrome. Mirapex at night has been added. Remains on DuoNeb. Patient walked 3 feet with physical therapy as documented. IV Lasix. Good urine output. Active Medications Acetaminophen (Acetaminophen Tab 325 Mg Tab) 650 mg PO Q4HR PRN PRN Reason: Fever And/ Or Mild Pain (1-3) Last Admin: 05/12/24 10:35 Dose: 650 mg Albuterol/Ipratropium (Ipratropium-Albuterol 3 Ml Neb) 3 ml INHALATION RT-Q2H PRN PRN Reason: Shortness Of Breath Or Wheezing Last Admin: 05/08/24 01:40 Dose: 3 ml Albuterol/Ipratropium (Ipratropium-Albuterol 3 Ml Neb) 3 ml INHALATION RT-QID [facility] Last Admin: 05/12/24 16:47 Dose: 3 ml Amiodarone HCl (Amiodarone 200 Mg Tab) 200 mg PO BID [facility] Last Admin: 05/12/24 08:33 Dose: 200 mg Ascorbic Acid (Ascorbic Acid 500 Mg Tab) 500 mg PO DAILY [facility] Last Admin: 05/12/24 08:33 Dose: 500 mg Aspirin (Aspirin 81 Mg) 81 mg PO DAILY [facility] Last Admin: 05/12/24 08:32 Dose: 81 mg Benzocaine/Menthol (Benzocaine/Menthol Lozeng 1 Each Lozenge) 1 each MUCOUS MEM Q2H PRN PRN Reason: Sore Throat Last Admin: 05/12/24 01:04 Dose: 1 each Bisacodyl (Bisacodyl 10 Mg Supp) 10 mg RECTAL DAILY PRN PRN Reason: Constipation Last Admin: 05/12/24 15:06 Dose: 10 mg Cholecalciferol (Cholecalciferol 25 Mcg (1000 Iu) Tablet) 75 mcg PO DAILY [facility] Last Admin: 05/12/24 08:32 Dose: 75 mcg Clopidogrel Bisulfate (Clopidogrel 75 Mg Tab) 75 mg PO DAILY [facility] Last Admin: 05/12/24 08:33 Dose: 75 mg Dextrose/Water (Dextrose 50% Syringe 50 Ml) 25 ml IVP PER PROTOCOL PRN; Protocol PRN Reason: Hypoglycemia Furosemide (Furosemide 10 Mg/Ml 4 Ml Vial) 40 mg IV Q12HR [facility] Last Admin: 05/12/24 09:47 Dose: Not Given Heparin Sodium (Porcine) (Heparin Sodium,Porcine 5,000 Unit/Ml 1 Ml Vial) 5,000 unit SQ Q8HR [facility] Last Admin: 05/12/24 16:27 Dose: 5,000 unit Hydralazine HCl (Hydralazine Hcl 25 Mg Tab) 25 mg PO Q12HR [facility] Last Admin: 05/12/24 08:34 Dose: 25 mg Calcium Gluconate/Sodium (Chloride 2 gm/ IV Solution) 100 mls @ 100 mls/hr IVPB ONCE PRN PRN Reason: Ionized Calcium less than 4.4 Stop: 06/02/24 13:59 Cefepime HCl 1 gm/ Sodium (Chloride) 50 mls @ 12.5 mls/hr IVPB Q12H [facility] Last Admin: 05/12/24 14:33 Dose: 12.5 mls/hr Insulin Human Lispro (Insulin Lispro (Humalog) 100 Unit/Ml 10 Ml Vl) 0 unit SQ ACHS [facility]; Protocol Last Admin: 05/12/24 18:36 Dose: Not Given Lactobacillus Acidophilus (Lactobacillus Acidophilus/Pect 1 Each Capsule) 1 each PO BID [facility] Last Admin: 05/12/24 08:32 Dose: 1 each Melatonin (Melatonin 3 Mg Tablet) 6 mg PO [facility] Last Admin: 05/11/24 20:07 Dose: 6 mg Metoclopramide HCl (Metoclopramide 5 Mg/Ml 2 Ml Vial) 10 mg IVP Q4H PRN PRN Reason: Nausea And Vomiting Last Admin: 05/07/24 07:04 Dose: 10 mg Metoprolol Tartrate (Metoprolol Tartrate 25 Mg Tab) 25 mg PO BID [facility] Last Admin: 05/12/24 10:36 Dose: 25 mg Miscellaneous Information (Potassium Replacement Protocol 1 Each Misc) 1 each MISCELLANE DAILY PRN; Protocol PRN Reason: Per Protocol Miscellaneous Information (Magnesium Replacement Protocol 1 Each Misc) 1 each MISCELLANE DAILY PRN; Protocol PRN Reason: Per Protocol Multivitamins/Minerals (Vit A,C & O-Flmuep-Xlwcbjod 1 Each Tab) 1 each PO BID [facility] Last Admin: 05/12/24 08:32 Dose: 1 each Ondansetron HCl (Ondansetron 4 Mg/2 Ml Vial) 4 mg IVP Q6HR PRN PRN Reason: Nausea And Vomiting Last Admin: 05/11/24 08:54 Dose: 4 mg Pantoprazole Sodium (Pantoprazole 40 Mg Tablet) 40 mg PO -BRKFST [facility] Last Admin: 05/12/24 06:37 Dose: 40 mg Pramipexole Dihydrochloride (Pramipexole 0.5 Mg Tab) 0.5 mg PO [facility] Senna/Docusate Sodium (Sennosides-Docusate Sodium 1 Each Tab) 2 each PO [facility] Last Admin: 05/11/24 20:07 Dose: 2 each Sodium Chloride (Sodium Chloride 0.9% Flush 10 Ml Syringe) 10 ml IV BID [facility] Last Admin: 05/12/24 08:27 Dose: Not Given Urea (Urea 15 Gm Powd.Pack) 15 gm PO BID [facility] Last Admin: 05/12/24 08:31 Dose: 15 gm Social history: Lives alone. Denies any alcohol or smoking history. Physical examination: VITAL SIGNS: 97.5, 70, 11, 88 x 47, 98% 2 L GENERAL:, up in a recliner, awake, breathing a bit better EYES: Pupils equal. Conjunctiva clifford l. HEENT: External appearance of nose and ears normal, oral cavity grossly normal. Decreased hearing NECK: JVD unable to assess; masses not palpable. HEART: Heart sounds irregular; Venodyne boots LUNGS: Respiratory rate increased; i diminished breath sounds. ABDOMEN: Soft, nontender, liver spleen not palpable, no masses palpable. Daily PSYCH: Alert and oriented x3; mood and affect, tired. MUSCULOSKELETAL:No Clubbing/cyanosis;muscles-grossly intact. OA INVESTIGATIONS, reviewed in the clinical context: May 12: White count 12.4 hemoglobin 9 platelets 134 potassium 4.6 sodium 133 BUN 93 creatinine 1.09 AST 294 ALT 426 May 11: White count 11.7 hemoglobin 9.5 platelets 190 sodium 123 potassium 5.3 BUN 93 creatinine 1.21 AST 363 ALT 446 2D echo: EF 45 to 50%. Atypical septal motion. Both atria enlarged. Bioprosthetic aortic valve stable.. No pericardial effusion May 10: White count 18.2 hemoglobin 8.8 platelets 160 sodium 124 potassium 4.8 BUN 75 creatinine 1.26 AST 435 ALT 441 CRP 17.2. UA positive for leukoesterase WBC May 09: White count 17 hemoglobin 9.3 sodium 127 potassium 5 BUN 43 creatinine 1.08 ABG: pH 7.39 pO2 less than 30 May 08: White count 15.1 hemoglobin 9 platelets 139 sodium 128 potassium 4.9 creatinine 1.01 AST 325 ALT 218 May 07: White count 11.9 hemoglobin 9.2 sodium 126 potassium 4.4 BUN 33 creatinine 0.99 May 06: White count 14.1 hemoglobin 9.3 platelets 95 sodium 126 potassium 4.9 BUN 29 creatinine 0.90 May 05: White count 12.4 hemoglobin 9.4 platelets 93 potassium 4.6 creatinine 0.74 May 04, 2024: White count 8.7 hemoglobin 9.5 platelets 64 sodium 137 potassium 5.6 BUN 19 creatinine 0.87 magnesium 2.5 iron 16 TIBC 154% saturation 10.3 transferrin 110 ferritin 176 Chest x-ray film personally reviewed by me-some venous prominence. Pacemaker Previous April 27, 2024: Hemoglobin 14.5 platelets 210 2D echocardiogram [April 29, 2023] EF 40%. Moderate MR. Severe TR. Severe pulmonary hypertension. Severe AR. Cardiac catheterization [April 2022] mild nonobstructive CAD Assessment plan: -aorctic valve replacement with a bioprosthesis, mitral valve repair with annuloplasty, exclusion of left atrial appendage using a clip, on May 03, [address] Hammond [Prior moderate mitral regurgitation, severe tricuspid regurgitation, severe aortic regurgitation] -Persistent atrial fibrillation., With patient being in and out of atrial fibrillation Lopressor. Cordarone -Acute hepatitis: Possibly combination of hypotension and being on amiodarone.: Plateaued off Amiodarone dose has been cut back by cardiothoracic team. -Acute hypoxic respiratory failure secondary to pulmonary edema/pleural effusion:: Improving Currently 2 L nasal cannula -Acute postprocedure blood loss anemia expected from surgery Follow H&H -Dilutional thrombocytopenia. Preoperative platelets 210: Resolved -Left pleural effusion, possibly secondary to CHF Pulmonary following. 700 cc left thoracentesis done May 10 -Hyperkalemia: Corrected Calcium gluconate, insulin given. -Hyponatremia likely hypervolemic, better Follow fluid status closely. Encourage oral intake. Tolvaptan given. On urea -Hypoalbuminemia, multifactorial: Received IV albumin -Acute UTI with cystitis secondary to Palacios catheter IV cefepime -Hard of hearing -Acute on chronic congestive heart failure exacerbation from mild systolic dysfunction nonischemic cardiomyopathy EF 45 to 50% IV Lasix 40 mg every 12 -Severe secondary pulmonary hypertension -Hypotension, cardiac On IV milrinone-discontinue -Primary osteoarthritis Tylenol as needed -Colonic diverticulosis, asymptomatic -Chronic kidney disease stage IIIa, baseline creatinine from 1 2-1.3, secondary nephrosclerosis Follows with Dr. Kimbrough outpatient -Pacemaker 2017, for sick sinus syndrome -Full code Continue current treatment plan. Thank you Dr. Hammond Past Medical History Past Medical History: Atrial Fibrillation, Heart Failure, CVA/TIA, Eye Disorder, Hearing Disorder / Deafness, Hyperlipidemia, Hypertension, Osteoarthritis (OA), Renal Disease, Skin Disorder Additional Past Medical History / Comment(s): SOB in the evening and through the night has improved with med changes. Tinnitus, bilateral hearing aid use. Diverticular disease, hemorrhoids. Hx kidney stones. hx Anemia. 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 Stage 3 kidney disease. Macular degeneration left eye. Small hiatal hernia. Reddness to cheeks, at times feels tingling. watching shadow by liver. History of Any Multi-Drug Resistant Organisms: None Reported Past Surgical History: Adenoidectomy, Appendectomy, Section, Heart Catheterization, Pacemaker, Tonsillectomy Additional Past Surgical History / Comment(s): SINUS SURGERY, section X3, CHRISTY, colonoscopy. Past Anesthesia/Blood Transfusion Reactions: No Reported Reaction Additional Past Anesthesia/Blood Transfusion Reaction / Comm: Hx blood transfusion with no issues 50 yrs ago. Type of Cardiac Device: Permanent Pacemaker Device Placement Date:: 01/2017 Left chest Smoking Status: Never smoker
[2024-05-12 19:58] LABS: Glucose,Whole Blood 129 mg/dL (70-110)
[2024-05-12] MEDS: PRAMIPEXOLE 0.5 MG TAB PO SCH (20:01)
[2024-05-13 06:01] LABS: Glucose,Whole Blood 134 mg/dL (70-110)
[2024-05-13 06:26] LABS: Anisocytosis Moderate; HCT 29.5 % (34.0-46.0); HGB 9.3 gm/dL (11.4-16.0); Hypochromasia Moderate; MCH 32.3 pg (25.0-35.0); MCHC 31.4 g/dL (31.0-37.0); MCV 102.7 fL (80.0-100.0); Macrocytosis Moderate; Mean Platelet Volume 9.1; Platelet Count 172 k/uL (150-450); Poikilocytosis Slight; RBC 2.87 m/uL (3.80-5.40); RDW 23.8 % (11.5-15.5); WBC 12.7 k/uL (3.8-10.6)
[2024-05-13 06:38] LABS: ALT 407 U/L (4-34); AST 253 U/L (14-36); African American GFR (CKD) 51 (>60 ml/min/1.73 sqM); Albumin 3.1 g/dL (3.5-5.0); Alkaline Phosphatase 154 U/L (38-126); Anion Gap 8 mmol/L; Blood Urea Nitrogen 82 mg/dL (7-17); Carbon Dioxide 26 mmol/L (22-30); Chloride 98 mmol/L (98-107); Glucose 118 mg/dL (74-99); Magnesium 2.3 mg/dL (1.6-2.3); Non-African American GFR(CKD) 44 (>60 ml/min/1.73 sqM); Potassium 4.6 mmol/L (3.5-5.1); Sodium 132 mmol/L (137-145); Total Protein 5.6 g/dL (6.3-8.2)
--- NOTE | 2024-05-13 07:23 | XR ---
EXAMINATION TYPE: XR chest 1V portable DATE OF EXAM: 05/13/2024 5:41 AM COMPARISON: Chest radiograph from one day prior. CLINICAL INDICATION: Female, 79 years old with history of Postcardiac surgery; [facility] TECHNIQUE: XR chest 1V portable Frontal view of the chest. FINDINGS: Lungs/Pleura: There is no evidence of pleural effusion, focal consolidation, or pneumothorax. Pulmonary vascularity: Unremarkable. Heart/mediastinum: Cardiomediastinal silhouette is unremarkable. Atherosclerotic calcifications are seen in the aorta. Post aortic valve repair changes. Left atrial appendage occlusion device is presen t. Two lead cardiac conduction device overlying the left hemithorax with lead tips projecting over th e right ventricle and right atrium. Musculoskeletal: No acute osseous pathology. Midline sternotomy wires are noted. Other findings: None IMPRESSION: Stable, Small bilateral pleural effusions are greater on left with cardiomegaly. [facility], , 05/13/2024 7:21 AM
--- NOTE | 2024-05-13 08:25 | P.PN ---
Subjective Progress Note Date: 05/13/24 Principal diagnosis: Severe aortic valve regurgitation, moderate mitral valve regurgitation, mild to moderate tricuspid valve regurgitation, and mild pulmonary hypertension. Previo us medical history of moderate left ventricular dysfunction, chronic heart failure with reduced ejection fraction, hypertension, chronic kidney disease stage III, iron deficiency anemia, paroxysmal atrial fibrillation with cardioversion in 2023 on Eliquis for anticoagulation status post permanent dual- chamber pacemaker, embolic stroke with full recovery, hard of hearing, osteoarthritis, mild lung disease, COVID in 2021, and lifelong non-smoker. POD #10 aortic valve replacement using a 19 mm Inspiris pericardial bioprosthesis, mitral valve repair using a posterior annuloplasty band 26 mm annuloflex, exclusion of the left atrial appendage using a 35mm AtriClip, and transesophageal echocardiogram and epiaortic scanning. Postoperative blood loss anemia and thrombocytopenia, expected given ca rdiopulmonary bypass and hemodilution Hypervolemic hyponatremia Transaminitis, felt to be from volume overload Leukocytosis, probable urinary tract infection The patient was seen and examined sitting up in recliner in the intensive care unit in no acute distress. She denies significant pain, denies shortness of breath currently. Currently in sinus rhythm, blood pressure better this morning. Was able to tolerate both doses of hydralazine and Lopressor yesterday. Currently on room air with oxygen saturation in the low to mid 90s, able to achieve 1000 mL on incentive spirometry. IV Lasix twice daily was ordered yesterday by nephrology, patient diuresed over 4 L. Continues on amiodarone for A-fib prophylaxis. Left brachial arterial line remains. Chest x-ray, lab work reviewed. Ambulatory in the hallway with nursing staff. No other new concerns. Objective - Vital Signs Vital signs: Vital Signs Temp 97.9 F 05/13/24 04:00 Pulse 70 05/13/24 08:12 Resp 16 05/13/24 07:00 BP 89/69 05/11/24 20:00 Pulse Ox 93 L 05/13/24 06:00 FiO2 50 05/03/24 20:00 Intake & Output 05/12/24 05/13/24 05/13/24 18:59 06:59 18:59 Intake Total 853.0 256 13 Output Total 2049 1999 Balance -1197.0 -1744 13 Weight 57.9 kg Intake: IV 103.0 156 13 0.9 PRESSURE BAG 33 36 3 Cefepime 1 gm In Sodium 50.0 Chloride 0.9% 50 ml @ 12. 5 mls/hr IVPB Q12H [facility] Rx #:[id number] Sodium Chloride 0.9% 1, 20 120 10 000 ml @ 30 mls/hr IV . Q24H [facility] Rx#:[id number] Oral 750 100 Output: Urine 2049 1999 Other: Voiding Method Bedside Commode Bedside Commode # Voids 1 # Bowel Movements 1 ABP, PAP, CO, CI - Last Documented Arterial Blood Pressure 106/59 Pulmonary Artery Pressure 39/22 Cardiac Output 2.4 Cardiac Index 1.5 - Exam CONSTITUTIONAL: Appears comfortable, cooperative, no acute distress RESPIRATORY: Lungs sounds diminished in the bases bilaterally. Respirations even, nonlabored. Currently on room air with oxygen saturation 94%. Able to achieve 1000 mL on incentive spirometry. Strong cough. CARDIOVASCULAR: S1, S2 present. Regular rate and rhythm, sinus rhythm on telemetry. Sternum stable. Palpable peripheral pulses bilaterally. Trace bilateral upper extremity and thigh edema present. No calf pain or tenderness noted. Heart hugger in place with patient demonstrating appropriate use. Antiembolism stockings, SCDs present. GASTROINTESTINAL: Abdomen soft, nontender, nondistended. Active bowel sounds present 4 quadrants. Tolerating diet. Positive bowel movement 05/12 GENITOURINARY: Continues to void. Output 4050 mL in the last 24 hours INTEGUMENTARY: Skin is warm and dry with evidence of good perfusion. Anterior chest incision well approximated and covered with dry intact dressing NEUROLOGIC: Cranial nerves II through XII intact MUSKULOSKELETAL: Able to move all extremities, strength equal bilaterally, gait normal PSYCHIATRIC: Alert and oriented to person place and time, appropriate affect, intact judgment and insight INVASIVE LINES AND TUBES: Atrial epicardial pacemaker wires present, grounded. Left brachial arterial line present - Allied health notes Allied health notes reviewed: nursing - Labs CBC & Chem 7: 05/13/24 06:00 05/13/24 06:00 Labs: Abnormal Lab Results - Last 24 Hours (Table) 05/12/24 05/12/24 05/12/24 Range/Units 11:24 17:05 19:57 WBC (3.8-10.6) k/uL RBC (3.80-5.40) m/uL Hgb (11.4-16.0) gm/dL Hct (34.0-46.0) % MCV (80.0-100.0) fL RDW (11.5-15.5) % Sodium (137-145) mmol/L BUN (7-17) mg/dL Creatinine (0.52-1.04) mg/dL Glucose (74-99) mg/dL POC Glucose (mg/dL) 158 H 136 H 129 H (70-110) mg/dL AST (14-36) U/L ALT (4-34) U/L Alkaline Phosphatase (38-126) U/L Total Protein (6.3-8.2) g/dL Albumin (3.5-5.0) g/dL 05/13/24 05/13/24 05/13/24 Range/Units 05:59 06:00 06:00 WBC 12.7 H (3.8-10.6) k/uL RBC 2.87 L (3.80-5.40) m/uL Hgb 9.3 L (11.4-16.0) gm/dL Hct 29.5 L (34.0-46.0) % MCV 102.7 H (80.0-100.0) fL RDW 23.8 H (11.5-15.5) % Sodium 132 L (137-145) mmol/L BUN 82 H (7-17) mg/dL Creatinine 1.18 H (0.52-1.04) mg/dL Glucose 118 H (74-99) mg/dL POC Glucose (mg/dL) 134 H (70-110) mg/dL AST 253 H (14-36) U/L ALT 407 H (4-34) U/L Alkaline Phosphatase 154 H (38-126) U/L Total Protein 5.6 L (6.3-8.2) g/dL Albumin 3.1 L (3.5-5.0) g/dL Microbiology - Last 24 Hours (Table) 05/10/24 13:57 Blood Culture - Preliminary Blood 05/10/24 18:20 Urine Culture - Final Urine,Voided - Imaging and Cardiology Chest x-ray: report reviewed, image reviewed Assessment and Plan Assessment: Severe aortic valve regurgitation, status post aortic valve replacement Moderate mitral valve regurgitation, status post mitral valve repair Mild to moderate tricuspid valve regurgitation Mild pulmonary hypertension Postoperative blood loss anemia and thrombocytopenia, expected given cardiopulmonary bypass and hemodilution Hypervolemic hyponatremia Transaminitis, felt to be from volume overload Leukocytosis, felt to be from urinary tract infection Medical debility History of chronic heart failure with reduced ejection fraction, EF 40% Hypertension Chronic kidney disease stage III Iron deficiency anemia Paroxysmal atrial fibrillation with cardioversion in 2023 on Eliquis for anticoagulation status post permanent dual-chamber pacemaker, status post ligation of the left atrial appendage Embolic stroke with full recovery in 2016 Mild lung disease, preoperative FEV1 73% of predicted COVID in 2021 Lifelong non-smoker Plan: Continue to maximize medical therapy with low dose aspirin, Plavix and beta- pari. Will increase beta-pari therapy when tolerated Continue hydralazine for afterload reduction with hold parameters Continue oral amiodarone for A-fib prophylaxis. No anticoagulation until all lines and tubes have been discontinued No statin as the patient is sensitive to statins, no hyperlipidemia present Encourage incentive spirometry use 10 times every hour while awake. Bronchodilators per pulmonology. Will monitor daily labs and chest x-rays, electrolyte replacement per protocol. Diuresis per nephrology Increase activity, ambulate as tolerated. PT/OT/cardiac rehab following GI/DVT prophylaxis Pain control per current medication regimen. No Toradol due to the patient's chronic kidney disease. Insulin management per internal medicine, preoperative hemoglobin A1c 6.1% May bladder scan and straight cath for greater than 300 mL residual Continue to monitor record strict accurate intake and output. Antibiotics per infectious disease Discontinue arterial line Epicardial pacemaker wires discontinued without incident, patient to remain on bedrest for 1 hour post wire removal PM&R physician consulted for IPR at discharge Will place transfer orders for 3 S. cardiac stepdown unit, may transfer when bed available More recommendations to follow based on patient's clinical course.
--- NOTE | 2024-05-13 09:28 | P.PN ---
Subjective Progress Note Date: 05/13/24 The patient is a 79-year-old female who is postop day 10 after aortic valve replacement and mitral valve repair patient also has known history of persistent atrial fibrillation and sick sinus syndrome status post permanent pacemaker. Patient had been feeling well postoperatively but chest x-ray showed large left pleural effusion and underwent thoracentesis, draining 700 mL. Patient interviewed and examined sitting up in the recliner chair. She states she is feeling well this morning. She has now been downgraded to 3 S. no current chest discomfort or difficulty breathing. No dizziness upon standing. GENERAL: Well-appearing, well-nourished and in no acute distress. NECK: Supple without JVD or thyromegaly. LUNGS: Breath sounds diminished to auscultation bilaterally. Respiration equal and unlabored. No wheezes, rales or rhonchi. HEART: Irregular rate and rhythm without murmurs, rubs or gallops. S1 and S2 heard. EXTREMITIES: Normal range of motion, no edema. No clubbing or cyanosis. Periph eral pulses intact and strong. LABS: WBC 12.7, hemoglobin 9.3, hematocrit 29.3, platelet 172, sodium 132, potassium 4.6, BUN 82, creatinine 1.18, AST 253, ALT 407 IMPRESSION: Severe aortic valve regurgitation, status post aortic valve replacement Moderate mitral valve regurgitation, status post mitral valve repair Transaminitis History of chronic heart failure with reduced ejection fraction, EF 40% Hypertension Chronic kidney disease stage III Paroxysmal atrial fibrillation Sick sinus syndrome status post permanent dual-chamber pacemaker Embolic stroke with full recovery in 2017 PLAN: Continue supportive treatment No further recommendations from the cardiac standpoint Outpatient follow-up with primary jacker in 1 week I am dictating on behalf of Dr John Niño's history/physical and assessment/plan. Objective - Vital Signs Vital signs: Vital Signs Temp 96.4 F L 05/13/24 08:00 Pulse 73 05/13/24 09:00 Resp 18 05/13/24 09:00 BP 107/73 05/13/24 09:00 Pulse Ox 94 L 05/13/24 08:00 FiO2 50 05/03/24 20:00 Intake & Output 05/12/24 05/13/24 05/13/24 18:59 06:59 18:59 Intake Total 853.0 256 86 Output Total 2050 2000 400 Balance -1197.0 -1744 -314 Weight 57.9 kg Intake: IV 103.0 156 36 0.9 PRESSURE BAG 33 36 6 Cefepime 1 gm In Sodium 50.0 Chloride 0.9% 50 ml @ 12. 5 mls/hr IVPB Q12H [facility] Rx #:[id number] Sodium Chloride 0.9% 1, 20 120 30 000 ml @ 30 mls/hr IV . Q24H [facility] Rx#:[id number] Oral 750 100 50 Output: Urine 2049 Other: Voiding Method Bedside Commode Bedside Commode Bedside Commode # Voids 1 # Bowel Movements 1 ABP, PAP, CO, CI - Last Documented Arterial Blood Pressure 106/55 Pulmonary Artery Pressure 39/22 Cardiac Output 2.4 Cardiac Index 1.5 - Labs CBC & Chem 7: 05/13/24 06:00 05/13/24 06:00 Labs: Abnormal Lab Results - Last 24 Hours (Table) 05/12/24 05/12/24 05/12/24 Range/Units 11:24 17:05 19:57 WBC (3.8-10.6) k/uL RBC (3.80-5.40) m/uL Hgb (11.4-16.0) gm/dL Hct (34.0-46.0) % MCV (80.0-100.0) fL RDW (11.5-15.5) % Sodium (137-145) mmol/L BUN (7-17) mg/dL Creatinine (0.52-1.04) mg/dL Glucose (74-99) mg/dL POC Glucose (mg/dL) 158 H 136 H 129 H (70-110) mg/dL AST (14-36) U/L ALT (4-34) U/L Alkaline Phosphatase (38-126) U/L Total Protein (6.3-8.2) g/dL Albumin (3.5-5.0) g/dL 05/13/24 05/13/24 05/13/24 Range/Units 05:59 06:00 06:00 WBC 12.7 H (3.8-10.6) k/uL RBC 2.87 L (3.80-5.40) m/uL Hgb 9.3 L (11.4-16.0) gm/dL Hct 29.5 L (34.0-46.0) % MCV 102.7 H (80.0-100.0) fL RDW 23.8 H (11.5-15.5) % Sodium 132 L (137-145) mmol/L BUN 82 H (7-17) mg/dL Creatinine 1.18 H (0.52-1.04) mg/dL Glucose 118 H (74-99) mg/dL POC Glucose (mg/dL) 134 H (70-110) mg/dL AST 253 H (14-36) U/L ALT 407 H (4-34) U/L Alkaline Phosphatase 154 H (38-126) U/L Total Protein 5.6 L (6.3-8.2) g/dL Albumin 3.1 L (3.5-5.0) g/dL Microbiology - Last 24 Hours (Table) 05/10/24 13:57 Blood Culture - Preliminary Blood 05/10/24 18:20 Urine Culture - Final Urine,Voided
[2024-05-13 11:09] LABS: Glucose,Whole Blood 131 mg/dL (70-110)
--- NOTE | 2024-05-13 12:20 | CDI ---
Date: 05/13/2024 From: Rekha [email or web address] Email: [email or web address] Admit Date: 05/03/2024 05:37:00 AM Patient Name: Jenise Kent Visit Number: [id number] Discharge Date: N/A ATTENTION: The Clinical Documentation Specialists (CDI) and [facility] Coding Staff appreciate your assistance in clarifying documentation. Please respond to the clarification below the line at the bottom and electronically sign. The CDI & [facility] Coding staff will review the response and follow-up if needed. Please note: Queries are made part of the Legal Health Record. If you have any questions, please contact the author of this message via ITS. Dr. Savita Kimbrough, Acute kidney injury, ATN is documented in your Progress Note on 05/10/2024 - which may lack sufficient clinical evidence/support in the medical record. Additional clarification is requested. Patient history/risk factors: 79-year-old female presented to [facility] for elective aortic valve replacement and mitral valve repair. PMH: Stage 3a chronic kidney disease, hypertension, chronic systolic heart failure Clinical Indicators: Documentation Location: Electronic Medical Record Nephrology Progress Notes: * Dr. Huynh (05/09/2024): Chronic kidney disease stage 3a with baseline creatinine 1-1.3 secondary to nephrosclerosis. GFR at baseline * Dr. Kimbrough (05/10/2024): Serum creatinine 1.26 Urine output 1.8 liters for 24 hours Chronic kidney disease stage 3a with baseline creatinine 1-1.3 secondary to nephrosclerosis Acute kidney injury, ATN, non-oliguric secondary to hypotension * Dr. Kimbrough (05/12/2024): 24-hour urine output documented at 4.1 liters Volume overload, slowly improving with diuresis Lab Trends: 05/03/24 05/04/24 05/05/24 05/06/24 05/07/24 05/08/24 05/09/24 05/10/24 05/11/24 05/12/24 05/13/24 BUN 18 19 20 29 33 38 43 75 93 93 82 Creatinine 0.74 0.87 0.74 0.90 0.99 1.01 1.08 1.26 1.21 1.09 1.18 GFR 78 64 78 62 55 54 49 41 43 49 44 Historical Labs Result/Previous Visit (04/27/2024): Creatinine 1.3 Treatment: Nephrology Consultation 0.9% Sodium Chloride IV Infusion @ 30mL/hr. Pertinent Labs Monitored with Trend After work up and study, please which diagnosis is most appropriate? [ ] Acute kidney injury ruled out. Stage 3 chronic kidney disease, stable. [ ] Acute kidney injury with acute tubular necrosis (on stage 3a chronic kidney disease) is a valid diagnosis as evidenced by the following: [X ] Acute renal insufficiency [ ] Unable to determine [ ] Other, please specify Reference: [facility] Criteria An increase in serum creatinine by greater than or equal to 0.3 mg/dL within 48 hours; or An increase in serum creatinine by greater than or equal to 1.5 times baseline, which is known or presumed to have occurred within the prior 7 days; or A urine volume less than 0.5 ml/kg/h for 6 hours. When the baseline is unknown the lowest creatinine during admission assumed to be baseline Reference: [employer] Stage 1 eGFR = 90 and kidney damage for =3 months Stage 2 eGFR 60-89 and kidney damage for =3 months Stage 3a eGFR 45-59 and kidney damage for =3 months Stage 3b eGFR 30-44 and kidney damage for =3 months Stage 4 eGFR 15-29 r and kidney damage for =3 months Stage 5 eGFR <15 and kidney damage for =3 months MTDD
--- NOTE | 2024-05-13 14:05 | P.PN ---
Subjective Progress Note Date: 05/13/24 Principal diagnosis: POD #10 aortic valve replacement using a 19 mm Inspiris pericardial bioprosthesis, mitral valve repair using a posterior annuloplasty band 26 mm annuloflex, exclusion of the left atrial appendage using a 35mm AtriClip, and transesophageal echocardiogram and epiaortic scanning. This is a 79-year-old female patient being seen in the intensive care unit po stop as the patient had severe aortic valve regurgitation with mitral valve regurgitation and mild pulmonary hypertension and moderate LV dysfunction and the patient was taken to the operating room and underwent aortic valve replacement and mitral valve repair. The patient is also noted to have pa roxysmal A-fib and has a pacemaker in place along with history of chronic kidney disease and previous history of embolic stroke with full recovery. The patient was brought into the intensive care and intubated on the mechanical ventilator. The patient was sedated with propofol. The patient is on the mechanical ventilator, assist-control mode rate of 12, tidal volume of 400, FiO2 of 100% with a PEEP of 5. Initial blood gases postop in the intensive care unit showed a pH of 7.57 with a pCO2 of 27 and pO2 of 256. FiO2 was dropped down to 60% and follow-up gases showed a pH of 7. 36 with a pCO2 of 47 and pO2 of 153. The patient's PA pressures were 38/28. Cardiac index was 1.7. Patient has mediastinal x2.. Chest x-ray showed adequate expansion of both lungs. No evidence of any pneumothorax. The patient has a right IJ Cuddy-Kip catheter in place. The patient is atrially paced at rate of 80. The patient is currently on low-dose norepinephrine and milrinone which is running at 0.2 mcg/kg/min. Urine output is adequate. Initial blood work showed a white cell count of 8 with a hemoglobin 9.1 and a platelet count of 66. The sodium is at 141, potassium is at 4.4, chloride is 109 with a bicarb of 25 BUN of 18 with a creatinine of 0.7. IV fluids are normal saline at rate of 50 cc an hour. No other significant events postop. On 05/04/2024, patient is being seen for a follow-up. The patient is post aortic valve replacement and mitral valve repair and the patient is postop day #2. The patient was weaned off the mechanical ventilator and the patient was extubated any major difficulties and the patient is currently on 2 L of oxygen by nasal cannula. Hemodynamically, the patient is still requiring inotropes and the patient is currently on Primacor which is running at 0.125 mcg/kg/min and the patient is off norepinephrine. Cardiac index today is at 2.3. PA pressures are 31/11. The patient remains atrially paced at a rate of 80. Urine output is noted of 30 cc an hour. Remains on amiodarone and the patient will be switched from amiodarone drip to oral amiodarone. Using incentive spirometer, pulling approximately thousand. Chest x-ray from this morning was noted and the patient has cardiomegaly and pulm vascular congestion and small bilateral pleural eff usions. Mediastinal chest tubes are still in place and output is minimal at this point in time. The patient is calm and comfortable. Denies having any specific complaints. Remains on insulin drip which is running at 1 unit an hour for adequate blood sugar control. On 05/05/2024, the patient is being seen for a follow-up. The patient is currently on her intrinsic pacemaker and she is pacing at rate of 60. Her cardiac output and index are being monitored. Earlier this morning, the cardiac index was a 2.2. The patient remains on milrinone 0.125 mcg/kg/min. Urine output is adequate. Output from the chest tubes are minimal. Using incentive spirometer. She remains on 2 L of oxygen by nasal cannula. Chest x-ray from today shows small bilateral pleural effusions and cardiomegaly. Blood work from today shows a white cell count of 12.4, hemoglobin of 9.4 and platelet count of 73. BUN is 20 with a creatinine of 0.7 and sodium is at 130. The patient was started on metoprolol 12.5 mg p.o. twice a day. She is centimeter on 12 mg p.o. daily. She remains on aspirin. Rest of the m edications remain unchanged. Midodrine was also added 5 mg p.o. 3 times daily. She is also on losartan 12.5 mg p.o. daily. She is currently postop day #2 following a aortic valve replacement and mitral valve repair. On today's evaluation 05/06/2024, the patient is being seen for a follow-up. The patient remains on 2 L of oxygen by nasal cannula. Chest x-ray findings remain unchanged the patient continues to have some small bilateral pleural effusions. The patient utilizing her intrinsic pacemaker. Urine output is in order of 30 to 40 cc an hour. She remains on milrinone at 0.25 mcg/kg/h and a cardiac index of 2.2. The patient is still inotrope dependent as the patient's cardiac output is dropping while the milrinone is being weaned. Meanwhile, the patient was given Lasix 40 mg IV push x 1. Awake and alert and communicating. No focal neurological deficits. Chest tubes have been removed. The white cell count of 14.1, hemoglobin is at 9.3 and a platelet count of 75. Sodium is at 126, BUN is 29 with a creatinine of 0.9. Potassium level is at 4.9. The patient is currently on amiodarone 200 mg p.o. daily. The patient is also on metoprolol which is currently on hold. Midodrine at 5 mg p.o. 3 times daily. Aspirin and Plavix. Hydralazine 50 mg p.o. twice daily. Oxycodone for pain control. The patient is postop day #3 following awaiting placement and mitral valve repair. On 05/07/2024, the patient is being seen for a follow-up. The patient remains on 2 L of oxygen by nasal cannula and chest x-ray still showing evidence of bilateral pleural effusion and pulm vascular congestion. The cardiac output is at 2.6 with an index of 1.8. SVR is at 1936. PA pressures are 45/25. CVP is 18. Given a dose of Lasix 20 mg IV push x 1 today. Remains in atrial fibrilla tion. Urine output is in order of 40 cc an hour and the patient remains on milrinone at 0.125 mcg/kg/h. The hemoglobin is at 9.2. White cell count is at 11.9. Platelet count is 105. BUN 33 creatinine of 0.9. Sodium levels at 126. Meanwhile, the patient is on metoprolol 12.5 mg p.o. twice a day. The patient remains on aspirin and Plavix. The patient is on hydralazine 50 mg p.o. twice daily with close monitoring of the blood pressure. Ambulating., Comfortable. Chest tubes have been removed. The patient is postop day #4 following aortic valve replacement and mitral valve repair. On 05/08/2024, the patient is awake and alert and she remains on 5 L of O2 nasal cannula. Chest x-ray essentially unchanged and shows pulm vessel congestion bilateral pleural effusions. Chest tubes have been removed. Cardiac index is ranging between 1.8 and 2 and the patient was taken off the milrinone drip. For now, the patient amiodarone 4 mg p.o. twice a day, metoprolol 12.5 mg twice daily and he was given Lasix 40 mg IV push x 1. She remains on hydralazine for afterload reduction 50 mg p.o. twice a day. Blood work shows a white cell count of 15.1, hemoglobin is at 9 and a platelet count of 139. Sodium is at 128, BUN 38 with a creatinine 1.0 and potassium dose is 4.9. LFTs are slightly elevated the patient is postop day 5 following aortic valve placement and mitral valve repair. On 05/09/2024, the patient is being seen for a follow-up. The patient remains off milrinone. The cardiac index is at 1.7 and the patient remains on 2 L of oxygen by nasal cannula. She remains atrial fibrillation. She is on amiodarone 4 mg p.o. twice a day and metoprolol 25 mg p.o. twice a day and she remains on a combination of aspirin and Plavix. The patient is also on hydralazine for afterload reduction 50 mg p.o. 3 times daily. She was given Lasix 40 mg IV push x 1 today. Chest x-ray findings are essentially unchanged and the patient has small bilateral pleural effusion and pulm vessel congestion. The white cell count is at 17, hemoglobin is at 9.3 and a platelet count is 161. Sodium levels at 127, potassium level is at 5, BUN is 43 with a creatinine of 1.07. The patient did have some mild transaminitis which is improving compared to yesterday. Chest tubes are removed. No other significant events overnight. The patient is currently on 2 L of oxygen by nasal cannula. She is ambulating. Patient was seen today on 05/10/2024, patient remains in the ICU on 4 L nasal cannula, she is still requiring milrinone at 0.1 mcg/kg/min, IV fluids at 20 cc/h, patient continues to have paced rhythm, today she underwent left-sided thoracentesis and I was able to retrieve 700 cc of serosanguineous fluid from the left pleural space. Patient tolerated the procedure well, she does not seem to be in any distress, she does feel woozy intermittently, and I believe the patient may be having episodes of low blood pressure she is on 2 L nasal cannula with O2 sats of 97%, achieving about 750 mL with her incentive spirometry. On the monitor she continues to have occasional episodes of atrial fibrillation, remains on amiodarone and she is also on metoprolol 25 twice daily, Primacor is infusing at 0.1 mcg/kg/min. Liver enzymes seems to be trending up. Episodes are being closely monitored. Chest x-ray showed evidence of bilateral pleural effusions, left more so than right, hence I went ahead and performed left-sided thoracentesis on this patient. WBC count is elevated 18.2 hemoglobin 8.8 sodium is 124 potassium 4.8 BUN is 75 creatinine 1.26 liver enzymes are elevated with AST of 435 ALT 441 and alkaline phosphatase of 180 Patient was seen today on 05/11/2024, patient is now postoperative day #8. Remains in the ICU, blood pressure seems to be marginal, denies shortness of breath denies any pain, patient is ambulating with assistance. Remains on Primacor at 0.1 mcg/kg/min, her sodium is low at 123, and there is a concern about further diuresing the patient, this is being addressed by nephrology on the case. Remains on amiodarone for atrial fibrillation, yesterday she underwent left-sided thoracentesis and 700 cc of fluid was drained. Chest x-ray today showed small tiny pleural effusions bilaterally. And there is a concern of mild pulmonary vascular congestion/pulmonary edema. O2 saturation is 90% on 4 L nasal cannula. IV fluid is at KVO. Patient was seen today on 05/12/2024, she is now postoperative day #9, remains in the ICU, sitting up in a recliner, does not seem to be in any distress, patient is on 2 L nasal cannula with O2 sats of 94%. Labs have improved, sodium is up to 133 potassium 4.6 BUN is 93 creatinine 1.09. WBC count is 12.4 hemoglobin is 9.0. Chest x-ray showed small bilateral pleural effusions not large enough to consider thoracentesis and it also showed some postoperative changes. Patient is ambulatory, she is ambulating in the hallway with assistance. Patient has been diuresed and she had significant urine output in the last 24 hours. In the meantime her sodium improved up to 133. Patient was seen today on 05/13/2024, patient is doing great, hardly any complaints, no shortness of breath no cough no wheezing, on room air, O2 saturation 96%, chest x-ray showed dramatic improvement in her pleural effusions and congestive heart failure. Chest x-ray showed small bilateral pleural effusion, not large enough for thoracentesis. WBC 12.7 hemoglobin 9.3 basic metabolic profile is normal BUN is 82 creatinine 1.18 Objective - Vital Signs Vital signs: Vital Signs Temp 96.4 F L 05/13/24 08:00 Pulse 105 H 05/13/24 13:00 Resp 18 05/13/24 13:00 BP 104/77 05/13/24 13:00 Pulse Ox 94 L 05/13/24 12:11 FiO2 0 05/13/24 12:11 Intake & Output 05/12/24 05/13/24 05/13/24 18:59 06:59 18:59 Intake Total 853.0 256 326 Output Total 2049 1999 1759 Balance -1197.0 -1744 -1434 Weight 57.9 kg Intake: IV 103.0 156 36 0.9 PRESSURE BAG 33 36 6 Cefepime 1 gm In Sodium 50.0 Chloride 0.9% 50 ml @ 12. 5 mls/hr IVPB Q12H [facility] Rx #:[id number] Sodium Chloride 0.9% 1, 20 120 30 000 ml @ 30 mls/hr IV . Q24H [facility] Rx#:[id number] Oral 750 100 290 Output: Urine 2049 1999 1759 Other: Voiding Method Bedside Commode Bedside Commode Bedside Commode # Voids 1 # Bowel Movements 1 ABP, PAP, CO, CI - Last Documented Arterial Blood Pressure 106/55 Pulmonary Artery Pressure 39/22 Cardiac Output 2.4 Cardiac Index 1.5 - Exam General: Revealed 79-year-old female in no distress, on room air Head: Atraumatic normocephalic EENT: PERRLA, EOMI, nonicteric no neck masses no JVD RESPIRATORY: Diminished breath sounds at the bases with minimal crackles no rhonchi no wheezes CARDIOVASCULAR: Distant S1-S2, no S3 gallop, no murmur GASTROINTESTINAL: Abdomen is soft nontender no rebound no guarding INTEGUMENTARY: No rashes NEUROLOGIC: Alert oriented x 3 no gross focal deficit MUSKULOSKELETAL: No deformities and no limitation range of motion PSYCHIATRIC: Normal mood affect and no mental status examination - Labs CBC & Chem 7: 05/13/24 06:00 05/13/24 06:00 Labs: Abnormal Lab Results - Last 24 Hours (Table) 05/12/24 05/12/24 05/13/24 Range/Units 17:05 19:57 05:59 WBC (3.8-10.6) k/uL RBC (3.80-5.40) m/uL Hgb (11.4-16.0) gm/dL Hct (34.0-46.0) % MCV (80.0-100.0) fL RDW (11.5-15.5) % Sodium (137-145) mmol/L BUN (7-17) mg/dL Creatinine (0.52-1.04) mg/dL Glucose (74-99) mg/dL POC Glucose (mg/dL) 136 H 129 H 134 H (70-110) mg/dL AST (14-36) U/L ALT (4-34) U/L Alkaline Phosphatase (38-126) U/L Total Protein (6.3-8.2) g/dL Albumin (3.5-5.0) g/dL 05/13/24 05/13/24 05/13/24 Range/Units 06:00 06:00 11:08 WBC 12.7 H (3.8-10.6) k/uL RBC 2.87 L (3.80-5.40) m/uL Hgb 9.3 L (11.4-16.0) gm/dL Hct 29.5 L (34.0-46.0) % MCV 102.7 H (80.0-100.0) fL RDW 23.8 H (11.5-15.5) % Sodium 132 L (137-145) mmol/L BUN 82 H (7-17) mg/dL Creatinine 1.18 H (0.52-1.04) mg/dL Glucose 118 H (74-99) mg/dL POC Glucose (mg/dL) 131 H (70-110) mg/dL AST 253 H (14-36) U/L ALT 407 H (4-34) U/L Alkaline Phosphatase 154 H (38-126) U/L Total Protein 5.6 L (6.3-8.2) g/dL Albumin 3.1 L (3.5-5.0) g/dL Microbiology - Last 24 Hours (Table) 05/10/24 13:57 Blood Culture - Preliminary Blood 05/10/24 18:20 Urine Culture - Final Urine,Voided Assessment and Plan Assessment: Impression:POD #10 aortic valve replacement using a 19 mm Inspiris pericardial bioprosthesis, mitral valve repair using a posterior annuloplasty band 26 mm annuloflex, exclusion of the left atrial appendage using a 35mm AtriClip, and transesophageal echocardiogram and epiaortic scanning. Severe aortic valve regurgitation, status post aortic valve replacement Moderate mitral valve regurgitation, status post mitral valve repair Mild to moderate tricuspid valve regurgitation Mild pulmonary hypertension Postoperative blood loss anemia and thrombocytopenia, expected given cardiopulmonary bypass and hemodilution Hypervolemic hyponatremia Transaminitis, felt to be from volume overload History of chronic heart failure with reduced ejection fraction, EF 40% Hypertension Chronic kidney disease stage III Iron deficiency anemia Paroxysmal atrial fibrillation with cardioversion in 2023 on Eliquis for anticoagulation status post permanent dual-chamber pacemaker, status post ligation of the left atrial appendage Embolic stroke with full recovery in 2016 Mild lung disease, preoperative FEV1 73% of predicted Lifelong non-smoker Status post left-sided thoracentesis on 05/10/2024, 700 cc removed from the left pleural space Recommendation: Transfer patient out of ICU to [facility]. Continue incentive spirometry Continue ambulation Continue diuretics Continue antibiotics as per ID on the case Continue GI DVT prophylaxis Will follow Time with Patient: Less than 30
--- NOTE | 2024-05-13 15:12 | P.PN ---
Subjective Progress Note Date: 05/13/24 Principal diagnosis: Reason for follow-up is leukocytosis/UTI Patient is a 79-year-old female with a past medical history significant for Atrial Fibrillation, Heart Failure, CVA/TIA, Eye Disorder, Hearing Disorder / Deafness, Hyperlipidemia, Hypertension, Osteoarthritis (OA), Renal Disease, Skin Disorder electively admitted to the hospital after the patient did have aortic valve replacement mitral valve repair, did have urinary symptoms of burning positive UA concerning for UTI elevated white count prompted this consultation. On today's evaluation that is 05/13/2024,the patient remains to be afebrile, patient is on room air not requiring supplemental oxygen and denies any shortness of breath no chest pain or cough.Patient denies having any nausea or vomiting, no abdominal pain and no diarrhea has been complaining of mostly sore throat. Patient white count is 12.7, creatinine is 1.18 Objective - Vital Signs Vital signs: Vital Signs Temp 96.4 F L 05/13/24 08:00 Pulse 89 05/13/24 14:00 Resp 21 05/13/24 14:00 BP 96/65 05/13/24 14:00 Pulse Ox 94 L 05/13/24 12:11 FiO2 0 05/13/24 12:11 Intake & Output 05/12/24 05/13/24 05/13/24 18:59 06:59 18:59 Intake Total 853.0 256 376 Output Total 2049 1999 1759 Balance -1197.0 -4034 -1384 Weight 57.9 kg Intake: IV 103.0 156 86 0.9 PRESSURE BAG 33 36 6 Cefepime 1 gm In Sodium 50.0 50 Chloride 0.9% 50 ml @ 12. 5 mls/hr IVPB Q12H [facility] Rx #:[id number] Sodium Chloride 0.9% 1, 20 120 30 000 ml @ 30 mls/hr IV . Q24H [facility] Rx#:[id number] Oral 750 100 290 Output: Urine 2049 1999 1759 Other: Voiding Method Bedside Commode Bedside Commode Bedside Commode # Voids 1 # Bowel Movements 1 ABP, PAP, CO, CI - Last Documented Arterial Blood Pressure 106/55 Pulmonary Artery Pressure 39/22 Cardiac Output 2.4 Cardiac Index 1.5 - Exam GENERAL DESCRIPTION: An elderly In the chair in no distress RESPIRATORY SYSTEM: Unlabored breathing , decreased breath sounds at bases HEART: S1 S2 regular rate and rhythm , ABDOMEN: Soft , no tenderness EXTREMITIES: No edema feet - Labs CBC & Chem 7: 05/13/24 06:00 05/13/24 06:00 Labs: Abnormal Lab Results - Last 24 Hours (Table) 05/12/24 05/12/24 05/13/24 Range/Units 17:05 19:57 05:59 WBC (3.8-10.6) k/uL RBC (3.80-5.40) m/uL Hgb (11.4-16.0) gm/dL Hct (34.0-46.0) % MCV (80.0-100.0) fL RDW (11.5-15.5) % Sodium (137-145) mmol/L BUN (7-17) mg/dL Creatinine (0.52-1.04) mg/dL Glucose (74-99) mg/dL POC Glucose (mg/dL) 136 H 129 H 134 H (70-110) mg/dL AST (14-36) U/L ALT (4-34) U/L Alkaline Phosphatase (38-126) U/L Total Protein (6.3-8.2) g/dL Albumin (3.5-5.0) g/dL 05/13/24 05/13/24 05/13/24 Range/Units 06:00 06:00 11:08 WBC 12.7 H (3.8-10.6) k/uL RBC 2.87 L (3.80-5.40) m/uL Hgb 9.3 L (11.4-16.0) gm/dL Hct 29.5 L (34.0-46.0) % MCV 102.7 H (80.0-100.0) fL RDW 23.8 H (11.5-15.5) % Sodium 132 L (137-145) mmol/L BUN 82 H (7-17) mg/dL Creatinine 1.18 H (0.52-1.04) mg/dL Glucose 118 H (74-99) mg/dL POC Glucose (mg/dL) 131 H (70-110) mg/dL AST 253 H (14-36) U/L ALT 407 H (4-34) U/L Alkaline Phosphatase 154 H (38-126) U/L Total Protein 5.6 L (6.3-8.2) g/dL Albumin 3.1 L (3.5-5.0) g/dL Microbiology - Last 24 Hours (Table) 05/10/24 13:57 Blood Culture - Preliminary Blood Assessment and Plan (1) Leukocytosis Current Visit: Yes Status: Acute Code(s): D72.829 - ELEVATED WHITE BLOOD CELL COUNT, UNSPECIFIED SNOMED Code(s): 011897806 (2) UTI (urinary tract infection) Current Visit: Yes Status: Acute Code(s): N39.0 - URINARY TRACT INFECTION, SITE NOT SPECIFIED SNOMED Code(s): 58871688 Plan: 1patient with elevated white count in this patient electively admitted to hospital and is status post aortic valve replacement and mitral valve repair she did have urinary catheter postsurgery which has been discontinued yesterday now with cloudy urine difficulty urination ID clinic suspicious for urinary source to be responsible for this elevated white count and need to be treated aggressively with recent cardiac procedure 2-patient did have a positive UA blood and urine culture currently pending as well as blood culture 3-patient is afebrile white count slightly up at 12,000 today has been complaining of some sore we will add nystatin swish and swallow continue cefepime Dictation was produced using [employer] dictation software. please excuse any grammatical, word or spelling errors. Time with Patient: Less than 30
--- NOTE | 2024-05-13 16:31 | P.CONS ---
History of Present Illness - Reason for Consult Consult date: 05/13/24 Rehab recommendations - Chief Complaint S/P AV replacement and mitral valve repair - History of Present Illness Jenise Kent is a 79 year old, right handed, , who lives alone in a single story home, with 3 STFD. Prior to admission, pt was ambulating without an assistive device. Pt was independent for basic/advanced ADLs. Retired: yes. Support system: has 3 children, only 1 daughter lives local. Pt was admitted on 05/03/24 post arctic valve replacement with a bioprosthesis, m itral valve repair with annuloplasty, exclusion of left atrial appendage using a clip. Per review of recoreds: On 05/04, patient was extubated, on IV insulin, milrinone and amiodarone, had mediatinal chest tubes. 05/05, on IV milrinone and IV heparin drip, Paced rhythm, [address] 05/06, given further IV amiodarone due to A.fib, contiued on IV milrinone, chest tubes out. 05/07: edmond catheter in place, blood pressure remains on lower side - continued on IV milrinone, received IV lasix. IV amiodarone stopped. Remains in atrial fibrillation. Chest x-ray shows pleural effusion/vascular congestion. 05/08: Edmond catheter, Patient switched to oral amiodarone, 4L NC, Had BM, taken off IV milrinone, Remains in A-fib, LFTs elevated. 05/09: Has been in and out of A-fib with paced rhythm, on 4.5 L nasal cannula. Chest x-ray with some scattered infiltrates, Urea added by nephrology for hyponatremia. 05/10: Patient getting IV albumin, Back on IV milrinone, patient is in and out of atrial fibrillation, Further increase in LFTs, Sodium down to 124, 1 dose of tolvaptan given per nephrology. Amiodarone held given elevated LFTs, Probable UTI-IV cefepime started by ID. Underwent left-sided thoracentesis 700 cc removed. 05/11: amiodarone decreased, Remains on IV cefepime, Also on IV milrinone for hypertension, Also remains on urea twice daily for hyponatremia, hydralazine decreased to 25 mg twice daily, urinary catheter out for at least for 24 hours. May 12: 2 L nasal cannula, On amiodarone 200 mg twice daily., Remains on IV cefepime, IV lasix, Urea. + restless leg syndrome, Mirapex added per primary teams. PM&R consulted for rehab recommendations. 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 Patient reports she feels tired and feels SOB with activity. Denies CP, sob at rest, and abdominal pain. Reports BLLE weakness due to hospital stay and recent surgery, hoping to gain some strength back after continued work with therapy. Reports she was previously completely independent and walking over 2 miles per day. Review of Systems As above in subjective. Past Medical History Past Medical History: Atrial Fibrillation, Heart Failure, CVA/TIA, Eye Disorder, Hearing Disorder / Deafness, Hyperlipidemia, Hypertension, Osteoarthritis (OA), Renal Disease, Skin Disorder Additional Past Medical History / Comment(s): SOB in the evening and through the night has improved with med changes. Tinnitus, bilateral hearing aid use. Diverticular disease, hemorrhoids. Hx kidney stones. hx Anemia. 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 Stage 3 kidney disease. Macular degeneration left eye. Small hiatal hernia. Reddness to cheeks, at times feels tingling. watching shadow by liver. History of Any Multi-Drug Resistant Organisms: None Reported Past Surgical History: Adenoidectomy, Appendectomy, Section, Heart Catheterization, Pacemaker, Tonsillectomy Additional Past Surgical History / Comment(s): SINUS SURGERY, section X3, CHRISTY, colonoscopy. Past Anesthesia/Blood Transfusion Reactions: No Reported Reaction Additional Past Anesthesia/Blood Transfusion Reaction / Comm: Hx blood transfusion with no issues 50 yrs ago. Type of Cardiac Device: Permanent Pacemaker Device Placement Date:: 01/2017 Left chest Smoking Status: Never smoker - Past Family History Sister(s) Family Medical History: Cancer Brother(s) Family Medical History: Cancer, Coronary Artery Disease (CAD) Father Family Medical History: Cancer Additional Family Medical History / Comment(s): Prostate cancer with mets to bones, colon. Mother Family Medical History: Renal Disease Additional Family Medical History / Comment(s): kidney disease Medications and Allergies Home Medications Medication Instructions Recorded Confirmed Type L.acidoph,Paracasei, B.lactis 1 cap PO BID 04/25/22 05/03/24 History [Probiotic] Vit C/E/Zn/Coppr/Lutein/Zeaxan 1 cap PO BID 04/25/22 04/27/24 History [Preservision Areds 2 Softgel] Illumineyes 1 tab PO DAILY 12/30/23 04/27/24 History Magnesium(Unknown Dose) 800 mg PO DIRECTED PRN 12/30/23 05/03/24 History Vitamin B-6/B-12(25mg/100mcg) 1 tab PO Q48H 12/30/23 04/27/24 History Vitamin C 650mg 1 tab PO DAILY 12/30/23 04/27/24 History Vitamin D3 40mcg 80 mcg PO BID 12/30/23 04/27/24 History Metoprolol Tartrate [Lopressor] 25 mg PO TID@0800,1600,2300 #180 01/02/24 05/03/24 Rx tab Amiodarone [Cordarone] 100 mg PO AC-LUNCH 01/06/24 05/03/24 History lisinopriL [Zestril] 2.5 mg PO DAILY 02/03/24 05/03/24 History Furosemide [Lasix] 40 mg PO DAILY PRN 02/23/24 05/03/24 History Apixaban [Eliquis] 5 mg PO BID 02/27/24 05/03/24 History Allergies Allergy/AdvReac Type Severity Reaction Status Date / Time strawberry Allergy Itching Verified 05/03/24 05:51 mold AdvReac sinuses Verified 05/03/24 05:51 Tonbygx-XHC-BpS Reductase AdvReac muscle Verified 05/03/24 05:51 Inhibitor aches and lethargy wheat AdvReac stomach Verified 05/03/24 05:51 bloats and lack of energy Yeast AdvReac sore Verified 05/03/24 05:51 throat,sinuses fungus AdvReac sinuses Uncoded 05/03/24 05:51 Physical Exam Vitals: Vital Signs Temp Pulse Resp BP Pulse Ox FiO2 05/13/24 14:00 89 21 96/65 05/13/24 13:00 105 H 18 104/77 05/13/24 12:11 94 L 0 05/13/24 12:00 99 18 99/72 05/13/24 11:00 95 16 102/33 05/13/24 10:00 99 20 115/55 05/13/24 09:00 73 18 107/73 05/13/24 08:26 70 05/13/24 08:12 70 05/13/24 08:00 96.4 F L 70 17 111/63 94 L 05/13/24 07:53 12 05/13/24 07:00 70 16 05/13/24 06:00 70 14 93 L 05/13/24 05:00 70 12 94 L 05/13/24 04:00 97.9 F 70 15 96 05/13/24 03:00 70 15 05/13/24 02:00 70 15 05/13/24 01:00 70 18 96 05/13/24 00:15 70 20 96 05/13/24 00:00 70 15 95 05/12/24 23:00 70 18 95 05/12/24 22:00 69 15 96 05/12/24 21:38 71 18 05/12/24 21:32 69 18 05/12/24 21:00 70 16 96 05/12/24 20:00 98 F 70 17 96 05/12/24 19:00 70 19 94 L 05/12/24 18:00 70 25 H 96 05/12/24 17:00 79 18 95 05/12/24 16:57 69 05/12/24 16:47 73 05/12/24 16:00 97.5 F L 69 17 95 Intake and Output 05/13/24 05/13/24 05/13/24 06:59 14:59 22:59 Intake Total 104 376 Output Total 1400 1760 Balance -6016 138 Intake: IV 104 86 0.9 PRESSURE BAG 24 6 Cefepime 1 gm In Sodium 50 Chloride 0.9% 50 ml @ 12. 5 mls/hr IVPB Q12H [facility] Rx #:[id number] Sodium Chloride 0.9% 1, 80 30 000 ml @ 30 mls/hr IV . Q24H WADE Rx#:[id number] Oral 290 Output: Urine 1400 1760 Other: Voiding Method Bedside Commode Bedside Commode Weight 57.9 kg ABP, PAP, CO, CI - Last 8 Hours Arterial Blood Pressure 106/55 General: Well-developed, well-nourished, female, in no acute distress, appears fatigued HEENT: NC/AT, external ears intact, +GAKONA Cardiovascular: B/L calves with SCDs, + BLLE edema, no cardiac distress, equipment monitor phototypesetting and heart hugger in place Respiratory: Even and unlabored breathing on RA Abdomen: Soft, nontender, nondistended Musculoskeletal: ROM WFL EXCEPT: decreased B/L SABD due to old injuries Neurological: Alert and oriented x 4. CN II-XII: Grossly intact. Speech is fluent, sometimes slurred 2' fatigue (daughter at BS confirmed this occurs when she is tired and is not a new occurrence) MMT: B/L FABD/WE 4/5; B/L EE/EF 4+/5; B/L HF/KE/DF/EHL 4/5 Reflexes: equal B/L upper and lower extremities Sensation: intact to light touch of B/L upper and lower extremities Skin: Skin intact where visible to head, neck, and bilateral upper and lower extremities EXCEPT: left brachial arterial line, right IV; chest incision with dressing C/D/I Psychiatric: Mood calm, affect appropriate, cooperative Results CBC & Chem 7: 05/13/24 06:00 05/13/24 06:00 Labs: Abnormal Lab Results - Last 24 Hours (Table) 05/12/24 05/12/24 05/13/24 Range/Units 17:05 19:57 05:59 WBC (3.8-10.6) k/uL RBC (3.80-5.40) m/uL Hgb (11.4-16.0) gm/dL Hct (34.0-46.0) % MCV (80.0-100.0) fL RDW (11.5-15.5) % Sodium (137-145) mmol/L BUN (7-17) mg/dL Creatinine (0.52-1.04) mg/dL Glucose (74-99) mg/dL POC Glucose (mg/dL) 136 H 129 H 134 H (70-110) mg/dL AST (14-36) U/L ALT (4-34) U/L Alkaline Phosphatase (38-126) U/L Total Protein (6.3-8.2) g/dL Albumin (3.5-5.0) g/dL 05/13/24 05/13/24 05/13/24 Range/Units 06:00 06:00 11:08 WBC 12.7 H (3.8-10.6) k/uL RBC 2.87 L (3.80-5.40) m/uL Hgb 9.3 L (11.4-16.0) gm/dL Hct 29.5 L (34.0-46.0) % MCV 102.7 H (80.0-100.0) fL RDW 23.8 H (11.5-15.5) % Sodium 132 L (137-145) mmol/L BUN 82 H (7-17) mg/dL Creatinine 1.18 H (0.52-1.04) mg/dL Glucose 118 H (74-99) mg/dL POC Glucose (mg/dL) 131 H (70-110) mg/dL AST 253 H (14-36) U/L ALT 407 H (4-34) U/L Alkaline Phosphatase 154 H (38-126) U/L Total Protein 5.6 L (6.3-8.2) g/dL Albumin 3.1 L (3.5-5.0) g/dL Microbiology - Last 24 Hours (Table) 05/10/24 13:57 Blood Culture - Preliminary Blood Assessment and Plan Assessment: #Impaired gait and ADL's 2' aorctic valve replacement with a bioprosthesis, mitral valve repair with annuloplasty, exclusion of left atrial appendage using a clip on 05/03/[address] Hammond -therapies #Atrial fibrillation #Acute hepatitis 2' hypotension and amiodarone -Amiodarone dose decreased by cardiothoracic team #Acute hypoxic respiratory failure 2' pulmonary edema/pleural effusion #Acute post procedure blood loss anemia #Dilutional thrombocytopenia #Left pleural effusion, possibly 2' CHF -Pulmonary following; 700 cc left thoracentesis done May 10 #Leukocytosis #Hyperkalemia #Hyponatremia -Nephrology following, Tolvaptan given, On urea #Hypoalbuminemia -Received IV albumin #Acute UTI with cystitis 2' indwelling Edmond catheter -IV cefepime #Acute on chronic congestive heart failure exacerbation from mild systolic dysfunction nonischemic cardiomyopathy EF 45 to 50% -IV Lasix 40 mg every 12 hours #Severe secondary pulmonary hypertension #Hypotension #Osteoarthritis -Tylenol per APR #S/P CVA #Chronic kidney disease, baseline creatinine from 1 2-1.3 #Pacemaker 2016 2' sick sinus syndrome # Bowel/ Bladder: Nursing to monitor and report concerns if any. # Diet - per EMR # Skin/wound: Skin/Wound care to follow as needed # Pain Management - tylenol PRN # DVT Prophylaxis: Defer to Ortho/IM management. # Comorbidities: atrial fibrillation, hypertension, tinnitus, diverticulosis, kidney stones, macular degeneration # Your medical dx and mgt Goals: Modified Independent mobility and ADLS both basic and advanced; increased functional mobility/strength; increased balance, safety, endurance. Improvement in medical issues through your care. Barriers: weakness, fall risk Discharge recommendation: Anticipate patient will need a structured rehab program prior to returning home. Patient is pending medical clearance at this time, would need to confirm plans for IV lasix and IV antibiotics. Will follow patient's therapy progress and continue to make recommendations. Patient seen and examined in coordination with Dr. Pablo.
[2024-05-13 16:43] LABS: Glucose,Whole Blood 106 mg/dL (70-110)
--- NOTE | 2024-05-13 16:53 | P.PN ---
Subjective Patient is seen for follow-up for hyponatremia. Overall feels better. Complaining of being tired today. Serum sodium at 132 and creatinine has improved to 1.1. Volume status seems to have improved. 24-hour urine output documented at 4.0 L. Objective - Vital Signs Vital signs: Vital Signs Temp 96.4 F L 05/13/24 08:00 Pulse 87 05/13/24 16:22 Resp 12 05/13/24 16:26 BP 104/77 05/13/24 16:22 Pulse Ox 94 L 05/13/24 16:22 FiO2 0 05/13/24 12:11 Intake & Output 05/12/24 05/13/24 05/13/24 18:59 06:59 18:59 Intake Total 853.0 256 376 Output Total 2049 1999 1759 Balance -1197.0 -1744 -1384 Weight 57.9 kg Intake: IV 103.0 156 86 0.9 PRESSURE BAG 33 36 6 Cefepime 1 gm In Sodium 50.0 50 Chloride 0.9% 50 ml @ 12. 5 mls/hr IVPB Q12H [facility] Rx #:[id number] Sodium Chloride 0.9% 1, 20 120 30 000 ml @ 30 mls/hr IV . Q24H [facility] Rx#:[id number] Oral 750 100 290 Output: Urine 2049 1999 1759 Other: Voiding Method Bedside Commode Bedside Commode Bedside Commode # Voids 1 # Bowel Movements 1 ABP, PAP, CO, CI - Last Documented Arterial Blood Pressure 106/55 Pulmonary Artery Pressure 39/22 Cardiac Output 2.4 Cardiac Index 1.5 - Exam Patient is awake, comfortable, no acute distress. 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 exam grossly intact - Labs CBC & Chem 7: 05/13/24 06:00 05/13/24 06:00 Labs: Abnormal Lab Results - Last 24 Hours (Table) 05/12/24 05/12/24 05/13/24 Range/Units 17:05 19:57 05:59 WBC (3.8-10.6) k/uL RBC (3.80-5.40) m/uL Hgb (11.4-16.0) gm/dL Hct (34.0-46.0) % MCV (80.0-100.0) fL RDW (11.5-15.5) % Sodium (137-145) mmol/L BUN (7-17) mg/dL Creatinine (0.52-1.04) mg/dL Glucose (74-99) mg/dL POC Glucose (mg/dL) 136 H 129 H 134 H (70-110) mg/dL AST (14-36) U/L ALT (4-34) U/L Alkaline Phosphatase (38-126) U/L Total Protein (6.3-8.2) g/dL Albumin (3.5-5.0) g/dL 05/13/24 05/13/24 05/13/24 Range/Units 06:00 06:00 11:08 WBC 12.7 H (3.8-10.6) k/uL RBC 2.87 L (3.80-5.40) m/uL Hgb 9.3 L (11.4-16.0) gm/dL Hct 29.5 L (34.0-46.0) % MCV 102.7 H (80.0-100.0) fL RDW 23.8 H (11.5-15.5) % Sodium 132 L (137-145) mmol/L BUN 82 H (7-17) mg/dL Creatinine 1.18 H (0.52-1.04) mg/dL Glucose 118 H (74-99) mg/dL POC Glucose (mg/dL) 131 H (70-110) mg/dL AST 253 H (14-36) U/L ALT 407 H (4-34) U/L Alkaline Phosphatase 154 H (38-126) U/L Total Protein 5.6 L (6.3-8.2) g/dL Albumin 3.1 L (3.5-5.0) g/dL Microbiology - Last 24 Hours (Table) 05/10/24 13:57 Blood Culture - Preliminary Blood Assessment and Plan Assessment: 1. Chronic kidney disease stage IIIa with baseline creatinine 1-1.3 secondary to nephrosclerosis. 2. Status post aortic valve replacement and mitral valve repair May 03, 2024. On Primacor. 3. Mild hyperkalemia secondary to underlying CKD and use of KHADIJAH inhibitor. Resolved. 4. Anemia. Iron deficiency noted. Status post IV iron completed May 08, 2024. 5. Volume overload, slowly improving with diuresis 6. Hypervolemic hyponatremia. Urine sodium less than 20 and urine osmolality 418. TSH normal. Patient was maintained on milrinone which is based in dextrose, contributing to hyponatremia, now discontinued 7. Acute kidney injury, ATN, nonoliguric secondary to hypotension, improved Plan: Continue to diurese patient. Continue same dose for now. Continue with urea Repeat labs in a.m.
[2024-05-13] MEDS: NYSTATIN 100,000 UNIT/ML SUSP 500,000 UNIT/5 ML CUP PO SCH (17:33)
[2024-05-13 20:03] LABS: Glucose,Whole Blood 141 mg/dL (70-110)
[2024-05-13] MEDS: APIXABAN 5 MG TAB PO SCH (20:57)
--- NOTE | 2024-05-13 23:17 | P.PN ---
Progress Note - Text Progress Note Date: 05/13/24 - Chief Complaint Aortic valve replacement etc. - History of Present Illness This is a pleasant 79year-old patient, follows with Dr. Thayer. 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 Kimbrough macular degeneration. Patient yesterday underwent arctic valve replacement with a bioprosthesis, mitral valve repair with annuloplasty, exclusion of left atrial appendage using a clip,. Today patient is up in a chair. Extubated. Drips include IV insulin, milrinone, amiodarone. Plan to being switched over to p.o. Paced rhythm. Has to chest tubes mediastinal. Clear liquid diet. Doing about 1000 cc on incentive spirometry. May 05: Sitting up in a recliner. Slight shortness of breath. On IV milrinone and IV heparin drip. Paced rhythm. [address] Eating fair. Been taken off insulin drip. May 06: Saw this afternoon. Up in a recliner. Did transfer from the bed to the chair. Some shortness of breath. A-fib. Given further IV loading IV amiodarone. Remains on IV milrinone. Chest tubes are out. Palacios catheter in place. Eating fair. Sodium a bit worse. Received IV Lasix and albumin. May 07: Up in a recliner. . Palacios catheter remains in place. Tired. Eating fair. Blood pressure remains lower side.-IV milrinone. On hydralazine for afterload reduction. 5 L nasal cannula. Received IV Lasix 20 mg today. Remains in atrial fibrillation. Chest x-ray shows pleural effusion/vascular congestion. May 08: ICU. Up in a recliner. Some shortness of breath. Palacios catheter. Patient switched to oral amiodarone. On 4 L nasal cannula. Eating some. Had a bowel movement. Patient been taken off IV milrinone. Remains in A-fib. Tired. LFTs have bumped up.-Note patient is on amiodarone. To switch to p.o. Could be ischemic hepatitis component. [IV amiodarone discontinued yesterday] May 09: ICU. In a recliner. Remains a bit short of breath. Tired. Eating some. Has been in and out of A-fib with paced rhythm. Remains of IV milrinone. On 4.5 L nasal cannula. Chest x-ray film personally reviewed by me-some scattered infiltrates. Urea added by nephrology for hyponatremia. May 10: ICU. Up in the recliner. Remains tired a bit short of breath. Had a BM yesterday. Patient getting IV albumin. Back on IV milrinone. Since patient is in and out of atrial fibrillation. Further increase in LFTs. Sodium down to 124. 1 dose of tolvaptan given per nephrology. Did text down from cardiothoracic team. Amiodarone should be held given LFTs much elevated. Probable UTI-IV cefepime started by ID. Hydralazine held today May 11: ICU. Up in a recliner. Yesterday underwent left-sided thoracentesis 100 cc removed. Patient dose of amiodarone is being cut back from tomorrow to 200 mg twice daily. Remains on IV cefepime. Also on IV milrinone for hypertension. Also remains on urea twice daily for hyponatremia. Also dose of hydralazine has been cut back. To 25 mg twice daily. Patient been off for urinary catheter at least for 24 hours. Patient did ambulate in the hallway with the staff. Some shortness of breath May 12: ICU. Up in a recliner. Breathing better. 2 L nasal cannula this afternoon. Eating fair. On amiodarone 200 mg twice daily. Remains on IV cefepime. Urea. Is being bothered by restless leg syndrome. Mirapex at night has been added. Remains on DuoNeb. Patient walked 3 feet with physical therapy as documented. IV Lasix. Good urine output. May 21: ICU. Patient seen this morning. Up in a chair. Breathing actually better. Off oxygen on room air. Remains on IV cefepime. Urine culture has been finalized negative. Blood cultures negative growth at 72 hours. Patient will be moved out of the ICU. A-fib. Active Medications Acetaminophen (Acetaminophen Tab 325 Mg Tab) 650 mg PO Q4HR PRN PRN Reason: Fever And/ Or Mild Pain (1-3) Last Admin: 05/13/24 20:59 Dose: 650 mg Albuterol/Ipratropium (Ipratropium-Albuterol 3 Ml Neb) 3 ml INHALATION RT-Q2H PRN PRN Reason: Shortness Of Breath Or Wheezing Last Admin: 05/08/24 01:40 Dose: 3 ml Albuterol/Ipratropium (Ipratropium-Albuterol 3 Ml Neb) 3 ml INHALATION RT-QID [facility] Last Admin: 05/13/24 17:04 Dose: 3 ml Amiodarone HCl (Amiodarone 200 Mg Tab) 200 mg PO BID [facility] Last Admin: 05/13/24 20:58 Dose: 200 mg Apixaban (Apixaban 5 Mg Tab) 5 mg PO BID [facility]; Protocol Last Admin: 05/13/24 20:57 Dose: 5 mg Ascorbic Acid (Ascorbic Acid 500 Mg Tab) 500 mg PO DAILY [facility] Last Admin: 05/13/24 08:32 Dose: 500 mg Aspirin (Aspirin 81 Mg) 81 mg PO DAILY [facility] Last Admin: 05/13/24 08:35 Dose: 81 mg Benzocaine/Menthol (Benzocaine/Menthol Lozeng 1 Each Lozenge) 1 each MUCOUS MEM Q2H PRN PRN Reason: Sore Throat Last Admin: 05/12/24 01:04 Dose: 1 each Bisacodyl (Bisacodyl 10 Mg Supp) 10 mg RECTAL DAILY PRN PRN Reason: Constipation Last Admin: 05/12/24 15:06 Dose: 10 mg Cholecalciferol (Cholecalciferol 25 Mcg (1000 Iu) Tablet) 75 mcg PO DAILY [facility] Last Admin: 05/13/24 08:32 Dose: 75 mcg Dextrose/Water (Dextrose 50% Syringe 50 Ml) 25 ml IVP PER PROTOCOL PRN; Protocol PRN Reason: Hypoglycemia Furosemide (Furosemide 10 Mg/Ml 4 Ml Vial) 40 mg IV Q12HR [facility] Last Admin: 05/13/24 20:57 Dose: 40 mg Hydralazine HCl (Hydralazine Hcl 25 Mg Tab) 25 mg PO Q12HR [facility] Last Admin: 05/13/24 21:05 Dose: Not Given Calcium Gluconate/Sodium (Chloride 2 gm/ IV Solution) 100 mls @ 100 mls/hr IVPB ONCE PRN PRN Reason: Ionized Calcium less than 4.4 Stop: 06/02/24 13:59 Cefepime HCl 1 gm/ Sodium (Chloride) 50 mls @ 12.5 mls/hr IVPB Q12H [facility] Last Admin: 05/13/24 14:29 Dose: 12.5 mls/hr Insulin Human Lispro (Insulin Lispro (Humalog) 100 Unit/Ml 10 Ml Vl) 0 unit SQ ACHS [facility]; Protocol Last Admin: 05/13/24 21:05 Dose: Not Given Lactobacillus Acidophilus (Lactobacillus Acidophilus/Pect 1 Each Capsule) 1 each PO BID [facility] Last Admin: 05/13/24 20:57 Dose: 1 each Melatonin (Melatonin 3 Mg Tablet) 6 mg PO HS [facility] Last Admin: 05/13/24 21:05 Dose: Not Given Metoclopramide HCl (Metoclopramide 5 Mg/Ml 2 Ml Vial) 10 mg IVP Q4H PRN PRN Reason: Nausea And Vomiting Last Admin: 05/07/24 07:04 Dose: 10 mg Metoprolol Tartrate (Metoprolol Tartrate 25 Mg Tab) 25 mg PO BID [facility] Last Admin: 05/13/24 20:58 Dose: 25 mg Miscellaneous Information (Potassium Replacement Protocol 1 Each Misc) 1 each MISCELLANE DAILY PRN; Protocol PRN Reason: Per Protocol Miscellaneous Information (Magnesium Replacement Protocol 1 Each Misc) 1 each MISCELLANE DAILY PRN; Protocol PRN Reason: Per Protocol Multivitamins/Minerals (Vit A,C & Q-Depclx-Gplrwydt 1 Each Tab) 1 each PO BID [facility] Last Admin: 05/13/24 20:58 Dose: 1 each Nystatin (Nystatin 100,000 Unit/Ml Susp 500,000 Unit/5 Ml Cup) 500,000 unit PO QID [facility]; Protocol Last Admin: 05/13/24 20:58 Dose: 500,000 unit Ondansetron HCl (Ondansetron 4 Mg/2 Ml Vial) 4 mg IVP Q6HR PRN PRN Reason: Nausea And Vomiting Last Admin: 05/11/24 08:54 Dose: 4 mg Pantoprazole Sodium (Pantoprazole 40 Mg Tablet) 40 mg PO AC-BRKFST [facility] Last Admin: 05/13/24 06:19 Dose: 40 mg Pramipexole Dihydrochloride (Pramipexole 0.5 Mg Tab) 0.5 mg PO HS [facility] Last Admin: 05/13/24 20:59 Dose: 0.5 mg Senna/Docusate Sodium (Sennosides-Docusate Sodium 1 Each Tab) 2 each PO HS [facility] Last Admin: 05/13/24 20:57 Dose: 2 each Sodium Chloride (Sodium Chloride 0.9% Flush 10 Ml Syringe) 10 ml IV BID [facility] Last Admin: 05/13/24 20:59 Dose: 10 ml Urea (Urea 15 Gm Powd.Pack) 15 gm PO BID [facility] Last Admin: 05/13/24 20:57 Dose: 15 gm Social history: Lives alone. Denies any alcohol or smoking history. Physical examination: VITAL SIGNS: 97, 99, 18, 99/72, 94% room air GENERAL:, up in a recliner, awake, breathing much improved EYES: Pupils equal. Conjunctiva clifford l. HEENT: External appearance of nose and ears normal, oral cavity grossly normal. Decreased hearing NECK: JVD unable to assess; masses not palpable. HEART: Heart sounds irregular; Venodyne boots LUNGS: Respiratory rate increased; i diminished breath sounds. ABDOMEN: Soft, nontender, liver spleen not palpable, no masses palpable. Daily PSYCH: Alert and oriented x3; mood and affect, tired. MUSCULOSKELETAL:No Clubbing/cyanosis;muscles-grossly intact. OA INVESTIGATIONS, reviewed in the clinical context: May 13: White count 12.17: 9.3 platelets 172 sodium 132 potassium 4.6 BUN 82 creatinine 1.18 AST 253 ALT 407 May 11: White count 11.7 hemoglobin 9.5 platelets 190 sodium 123 potassium 5.3 BUN 93 creatinine 1.21 AST 363 ALT 446 2D echo: EF 45 to 50%. Atypical septal motion. Both atria enlarged. Bioprosthetic aortic valve stable.. No pericardial effusion May 10: White count 18.2 hemoglobin 8.8 platelets 160 sodium 124 potassium 4.8 BUN 75 creatinine 1.26 AST 435 ALT 441 CRP 17.2. UA positive for leukoesterase WBC May 09: White count 17 hemoglobin 9.3 sodium 127 potassium 5 BUN 43 creatinine 1.08 ABG: pH 7.39 pO2 less than 30 May 08: White count 15.1 hemoglobin 9 platelets 139 sodium 128 potassium 4.9 creatinine 1.01 AST 325 ALT 218 May 04, 2024: White count 8.7 hemoglobin 9.5 platelets 64 sodium 137 potassium 5.6 BUN 19 creatinine 0.87 magnesium 2.5 iron 16 TIBC 154% saturation 10.3 transferrin 110 ferritin 176 Chest x-ray film personally reviewed by me-some venous prominence. Pacemaker Previous April 27, 2024: Hemoglobin 14.5 platelets 210 2D echocardiogram [April 29, 2023] EF 40%. Moderate MR. Severe TR. Severe pulmonary hypertension. Severe AR. Cardiac catheterization [April 2022] mild nonobstructive CAD Assessment plan: -aorctic valve replacement with a bioprosthesis, mitral valve repair with annuloplasty, exclusion of left atrial appendage using a clip, on May 03, [address] Hammond [Prior moderate mitral regurgitation, severe tricuspid regurgitation, severe aortic regurgitation] -Persistent atrial fibrillation., With patient being in and out of atrial fibrillation Lopressor. Cordarone -Acute hepatitis: Possibly combination of hypotension and being on amiodarone.: Plateaued off Amiodarone dose has been cut back by cardiothoracic team. Follow LFTs -Acute hypoxic respiratory failure secondary to pulmonary edema/pleural effusion:: Improved Patient now is on room air -Acute postprocedure blood loss anemia expected from surgery Follow H&H -Dilutional thrombocytopenia. Preoperative platelets 210: Resolved -Left pleural effusion, possibly secondary to CHF Pulmonary following. 700 cc left thoracentesis done May 10 -Hyperkalemia: Corrected Calcium gluconate, insulin given. -Hyponatremia likely hypervolemic, much improved Follow fluid status closely. Encourage oral intake. Tolvaptan given. On urea -Hypoalbuminemia, multifactorial: Received IV albumin -Acute UTI with cystitis secondary to Palacios catheter IV cefepime -Hard of hearing -Acute on chronic congestive heart failure exacerbation from mild systolic dysfunction nonischemic cardiomyopathy EF 45 to 50%: Improving IV Lasix 40 mg every 12 -Severe secondary pulmonary hypertension -Hypotension, cardiac: Better On IV milrinone-discontinue -Primary osteoarthritis Tylenol as needed -Colonic diverticulosis, asymptomatic -Chronic kidney disease stage IIIa, baseline creatinine from 1 2-1.3, secondary nephrosclerosis Follows with Dr. Kimbrough outpatient -Pacemaker 2017, for sick sinus syndrome -Full code Continues to improve. Off oxygen. Will be moved out of the ICU. Thank you Dr. Hammond Past Medical History Past Medical History: Atrial Fibrillation, Heart Failure, CVA/TIA, Eye Disorder, Hearing Disorder / Deafness, Hyperlipidemia, Hypertension, Osteoarthritis (OA), Renal Disease, Skin Disorder Additional Past Medical History / Comment(s): SOB in the evening and through the night has improved with med changes. Tinnitus, bilateral hearing aid use. Diverticular disease, hemorrhoids. Hx kidney stones. hx Anemia. 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 Stage 3 kidney disease. Macular degeneration left eye. Small hiatal hernia. Reddness to cheeks, at times feels tingling. watching shadow by liver. History of Any Multi-Drug Resistant Organisms: None Reported Past Surgical History: Adenoidectomy, Appendectomy, Section, Heart Catheterization, Pacemaker, Tonsillectomy Additional Past Surgical History / Comment(s): SINUS SURGERY, section X3, CHRISTY, colonoscopy. Past Anesthesia/Blood Transfusion Reactions: No Reported Reaction Additional Past Anesthesia/Blood Transfusion Reaction / Comm: Hx blood transfusion with no issues 50 yrs ago. Type of Cardiac Device: Permanent Pacemaker Device Placement Date:: 01/2017 Left chest Smoking Status: Never smoker
[2024-05-14 05:50] LABS: Glucose,Whole Blood 132 mg/dL (70-110)
[2024-05-14 06:58] LABS: Anisocytosis Moderate; HCT 30.5 % (34.0-46.0); HGB 9.6 gm/dL (11.4-16.0); Hypochromasia Marked; MCHC 31.4 g/dL (31.0-37.0); Macrocytosis Marked; Mean Platelet Volume 8.9; Platelet Count 180 k/uL (150-450); Poikilocytosis Slight; RBC 2.91 m/uL (3.80-5.40); RDW 22.9 % (11.5-15.5); WBC 12.8 k/uL (3.8-10.6)
[2024-05-14 07:22] LABS: ALT 334 U/L (4-34); AST 163 U/L (14-36); African American GFR (CKD) 54 (>60 ml/min/1.73 sqM); Albumin 3.3 g/dL (3.5-5.0); Alkaline Phosphatase 160 U/L (38-126); Anion Gap 8 mmol/L; Blood Urea Nitrogen 85 mg/dL (7-17); Carbon Dioxide 29 mmol/L (22-30); Chloride 96 mmol/L (98-107); Glucose 118 mg/dL (74-99); Magnesium 2.2 mg/dL (1.6-2.3); Non-African American GFR(CKD) 47 (>60 ml/min/1.73 sqM); Potassium 4.5 mmol/L (3.5-5.1); Sodium 133 mmol/L (137-145); Total Bilirubin 0.9 mg/dL (0.2-1.3); Total Protein 5.8 g/dL (6.3-8.2)
--- NOTE | 2024-05-14 09:54 | P.PN ---
Subjective HISTORY OF PRESENT ILLNESS: Patient examined this morning. She is sitting up in the chair. Patient currently denies chest pain or pressure. She denies shortness of breath. Patient states that she slept well overnight. Vital signs are stable. She is maintaining atrial fibrillation. PHYSICAL EXAM: VITAL SIGNS: Reviewed. GENERAL: Well-developed in no acute distress. NECK: Supple. No JVD or thyromegaly LUNGS: Respirations even and unlabored. Lungs essentially clear to auscultation bilaterally. HEART: Irregular rate and rhythm. S1 and S2 heard. EXTREMITIES: Normal range of motion. No clubbing or cyanosis. Peripheral pulses intact. No lower extremity edema ASSESSMENT: Severe aortic valve regurgitation, status post aortic valve replacement Moderate mitral valve regurgitation, status post mitral valve repair Transaminitis History of chronic heart failure with reduced ejection fraction, EF 40% Hypertension Chronic kidney disease stage III Paroxysmal atrial fibrillation Sick sinus syndrome status post permanent dual-chamber pacemaker Embolic stroke with full recovery in 2016 PLAN: Continue postoperative management per CT surgery Increase activity as tolerated Encourage use of incentive spirometer Continue telemetry monitoring Further recommendations pending patient course Nurse practitioner note has been reviewed by physician. Signing provider agrees with the documented findings, assessment, and plan of care documented by PARTNERSHIP DEVELOPMENT MANAGER as a scribe. Objective - Vital Signs Vital signs: Vital Signs Temp 96.8 F L 05/14/24 08:00 Pulse 84 05/14/24 08:53 Resp 14 05/14/24 08:00 BP 100/69 05/14/24 08:00 Pulse Ox 93 L 05/14/24 08:00 FiO2 0 05/13/24 12:11 Intake & Output 05/13/24 05/14/24 05/14/24 18:59 06:59 18:59 Intake Total 616 780 Output Total 2059 1401 Balance -1444 -621 Weight 63.4 kg 56.4 kg Intake: IV 86 0.9 PRESSURE BAG 6 Cefepime 1 gm In Sodium 50 Chloride 0.9% 50 ml @ 12. 5 mls/hr IVPB Q12H [facility] Rx #:[id number] Sodium Chloride 0.9% 1, 30 000 ml @ 30 mls/hr IV . Q24H [facility] Rx#:[id number] Oral 530 780 Output: Urine 2059 1400 Stool 1 Other: Voiding Method Bedside Commode Toilet Bedside Commode ABP, PAP, CO, CI - Last Documented Arterial Blood Pressure 106/55 Pulmonary Artery Pressure 39/22 Cardiac Output 2.4 Cardiac Index 1.5 - Labs CBC & Chem 7: 05/14/24 06:16 05/14/24 06:16 Labs: Abnormal Lab Results - Last 24 Hours (Table) 05/13/24 05/13/24 05/14/24 Range/Units 11:08 20:02 05:49 WBC (3.8-10.6) k/uL RBC (3.80-5.40) m/uL Hgb (11.4-16.0) gm/dL Hct (34.0-46.0) % MCV (80.0-100.0) fL RDW (11.5-15.5) % Macrocytosis Sodium (137-145) mmol/L Chloride (98-107) mmol/L BUN (7-17) mg/dL Creatinine (0.52-1.04) mg/dL Glucose (74-99) mg/dL POC Glucose (mg/dL) 131 H 141 H 132 H (70-110) mg/dL AST (14-36) U/L ALT (4-34) U/L Alkaline Phosphatase (38-126) U/L Total Protein (6.3-8.2) g/dL Albumin (3.5-5.0) g/dL 05/14/24 05/14/24 Range/Units 06:16 06:16 WBC 12.8 H (3.8-10.6) k/uL RBC 2.91 L (3.80-5.40) m/uL Hgb 9.6 L (11.4-16.0) gm/dL Hct 30.5 L (34.0-46.0) % MCV 105.0 H (80.0-100.0) fL RDW 22.9 H (11.5-15.5) % Macrocytosis Marked A Sodium 133 L (137-145) mmol/L Chloride 96 L (98-107) mmol/L BUN 85 H (7-17) mg/dL Creatinine 1.12 H (0.52-1.04) mg/dL Glucose 118 H (74-99) mg/dL POC Glucose (mg/dL) (70-110) mg/dL AST 163 H (14-36) U/L ALT 334 H (4-34) U/L Alkaline Phosphatase 160 H (38-126) U/L Total Protein 5.8 L (6.3-8.2) g/dL Albumin 3.3 L (3.5-5.0) g/dL Microbiology - Last 24 Hours (Table) 05/10/24 13:57 Blood Culture - Preliminary Blood
--- NOTE | 2024-05-14 10:30 | P.PN ---
Subjective Progress Note Date: 05/14/24 Principal diagnosis: Severe aortic valve regurgitation, moderate mitral valve regurgitation, mild to moderate tricuspid valve regurgitation, and mild pulmonary hypertension. Medic al history history for moderate left ventricular dysfunction, chronic heart failure with reduced ejection fraction, hypertension, chronic kidney disease stage III, iron deficiency anemia, paroxysmal atrial fibrillation with cardioversion in 2023 on Eliquis for anticoagulation status post permanent dual- chamber pacemaker, embolic stroke with full recovery, hard of hearing, osteoarthritis, mild lung disease, COVID in 2021, and lifelong non-smoker. POD #11 aortic valve replacement using a 19 mm Inspiris pericardial bioprosthesis, mitral valve repair using a posterior annuloplasty band 26 mm annuloflex, exclusion of the left atrial appendage using a 35mm AtriClip, and transesophageal echocardiogram and epiaortic scanning. Postoperative blood loss anemia and thrombocytopenia, expected given c ardiopulmonary bypass and hemodilution. Hypervolemic hyponatremia. Transaminitis, felt to be from volume overload, AST/ALT trending down. Leukocytosis, unknown etiology, urine culture negative. The patient was seen and examined in follow-up today May 14, 2024 at her bedside on the third floor cardiac stepdown unit. She is currently sitting up to the bedside chair, is awake, alert, oriented x 3 and is in no acute apparent distress. Denies any complaints of shortness of breath or pain at this time. Oxygen saturations are 95% on room air and she is achieving 750 mL on her incentive spirometry with encouragement. Remote telemetry is showing atrial fibrillation heart rate 94 bpm. She remains on amiodarone for atrial fibrillation prophylaxis and is currently on metoprolol 25 mg p.o. twice daily. She was also started on Eliquis 5 mg p.o. twice daily for anticoagulation. Chest x-ray and laboratory results were reviewed. She remains hemodynamically stable and is currently on no inotropic or pressor support. She remains on Lasix 40 mg IV every 12 hours managed by nephrology. Objective - Vital Signs Vital signs: Vital Signs Temp 96.8 F L 05/14/24 08:00 Pulse 84 05/14/24 08:53 Resp 14 05/14/24 08:00 BP 100/69 05/14/24 08:00 Pulse Ox 93 L 05/14/24 08:00 FiO2 0 05/13/24 12:11 Intake & Output 05/13/24 05/14/24 05/14/24 18:59 06:59 18:59 Intake Total 616 780 Output Total 2059 1401 Balance -1444 -621 Weight 63.4 kg 56.4 kg Intake: IV 86 0.9 PRESSURE BAG 6 Cefepime 1 gm In Sodium 50 Chloride 0.9% 50 ml @ 12. 5 mls/hr IVPB Q12H [facility] Rx #:[id number] Sodium Chloride 0.9% 1, 30 000 ml @ 30 mls/hr IV . Q24H [facility] Rx#:[id number] Oral 530 780 Output: Urine 2059 1400 Stool 1 Other: Voiding Method Bedside Commode Toilet Bedside Commode ABP, PAP, CO, CI - Last Documented Arterial Blood Pressure 106/55 Pulmonary Artery Pressure 39/22 Cardiac Output 2.4 Cardiac Index 1.5 - Exam CONSTITUTIONAL: Appears comfortable, cooperative, no acute distress RESPIRATORY: Lungs sounds diminished in the bases bilaterally. Respirations symmetrical, nonlabored. Currently on room air with oxygen saturation 95%. Ab le to achieve 750 mL on incentive spirometry. Strong cough. CARDIOVASCULAR: S1, S2 present. Irregular rate and rhythm, atrial fibrillation on remote telemetry. Sternum stable. Palpable peripheral pulses bilaterally. Trace bilateral upper extremity and thigh edema present. No calf pain or t enderness noted. Heart hugger in place with patient demonstrating appropriate use. Antiembolism stockings, SCDs present. GASTROINTESTINAL: Abdomen soft, nontender, nondistended. Active bowel sounds present 4 quadrants. Tolerating diet. Bowel movement 05/14/24 GENITOURINARY: Continues to void. Urine output 1.4 L in the last 8 hours. INTEGUMENTARY: Skin is warm and dry with no clubbing or cyanosis present. Midline sternal chest incision well approximated and covered with dry intact dressing. NEUROLOGIC: Cranial nerves II through XII intact. MUSKULOSKELETAL: Able to move all extremities, strength equal bilaterally, gait normal. PSYCHIATRIC: Alert and oriented to person place and time, appropriate affect, intact judgment and insight. - Allied health notes Allied health notes reviewed: nursing - Labs CBC & Chem 7: 05/14/24 06:16 05/14/24 06:16 Labs: Abnormal Lab Results - Last 24 Hours (Table) 05/13/24 05/13/24 05/14/24 Range/Units 11:08 20:02 05:49 WBC (3.8-10.6) k/uL RBC (3.80-5.40) m/uL Hgb (11.4-16.0) gm/dL Hct (34.0-46.0) % MCV (80.0-100.0) fL RDW (11.5-15.5) % Macrocytosis Sodium (137-145) mmol/L Chloride (98-107) mmol/L BUN (7-17) mg/dL Creatinine (0.52-1.04) mg/dL Glucose (74-99) mg/dL POC Glucose (mg/dL) 131 H 141 H 132 H (70-110) mg/dL AST (14-36) U/L ALT (4-34) U/L Alkaline Phosphatase (38-126) U/L Total Protein (6.3-8.2) g/dL Albumin (3.5-5.0) g/dL 05/14/24 05/14/24 Range/Units 06:16 06:16 WBC 12.8 H (3.8-10.6) k/uL RBC 2.91 L (3.80-5.40) m/uL Hgb 9.6 L (11.4-16.0) gm/dL Hct 30.5 L (34.0-46.0) % MCV 105.0 H (80.0-100.0) fL RDW 22.9 H (11.5-15.5) % Macrocytosis Marked A Sodium 133 L (137-145) mmol/L Chloride 96 L (98-107) mmol/L BUN 85 H (7-17) mg/dL Creatinine 1.12 H (0.52-1.04) mg/dL Glucose 118 H (74-99) mg/dL POC Glucose (mg/dL) (70-110) mg/dL AST 163 H (14-36) U/L ALT 334 H (4-34) U/L Alkaline Phosphatase 160 H (38-126) U/L Total Protein 5.8 L (6.3-8.2) g/dL Albumin 3.3 L (3.5-5.0) g/dL Microbiology - Last 24 Hours (Table) 05/10/24 13:57 Blood Culture - Preliminary Blood - Imaging and Cardiology Chest x-ray: report reviewed, image reviewed Assessment and Plan Assessment: Severe aortic valve regurgitation, status post aortic valve replacement Moderate mitral valve regurgitation, status post mitral valve repair Mild to moderate tricuspid valve regurgitation Mild pulmonary hypertension Postoperative blood loss anemia and thrombocytopenia, expected given car diopulmonary bypass and hemodilution Hypervolemic hyponatremia Transaminitis, felt to be from volume overload Leukocytosis, felt to be from urinary tract infection Medical debility Oropharyngeal thrush History of chronic heart failure with reduced ejection fraction, EF 40% Hypertension Chronic kidney disease stage III Iron deficiency anemia Paroxysmal atrial fibrillation with cardioversion in 2023 on Eliquis for anticoagulation status post permanent dual-chamber pacemaker, status post ligation of the left atrial appendage Embolic stroke with full recovery in 2016 Mild lung disease, preoperative FEV1 73% of predicted COVID in 2021 Lifelong non-smoker Plan: Continue to maximize medical therapy with low dose aspirin, Plavix and beta- pari. Will increase beta-pari therapy when tolerated. Continue hydralazine for afterload reduction with hold parameters. Continue oral amiodarone for atrial fibrillation prophylaxis. Eliquis 5 mg p.o. twice daily has been initiated for anticoagulation. No statin as the patient is sensitive to statins, no hyperlipidemia present Encourage incentive spirometry use 10 times every hour while awake. Bronchodilators per pulmonology. Will monitor daily labs and chest x-rays, electrolyte replacement per protocol. Diuresis per nephrology. Needs to be off IV Lasix to be transferred to inpatient rehab. Increase activity, ambulate as tolerated. PT/OT/cardiac rehab following. GI/DVT prophylaxis. Pain control per current medication regimen. No Toradol due to the patient's chronic kidney disease. Insulin management per internal medicine, preoperative hemoglobin A1c 6.1%. May bladder scan and straight cath for greater than 300 mL residual. Continue to monitor record strict accurate intake and output. Cefepime has been discontinued as her urine culture was negative. She has been started on Diflucan 100 mg p.o. daily x 7 days for thrush. PM&R physician consulted for IPR at discharge, authorization for transfer pending. More recommendations to follow based on patient's clinical course. Time with Patient: Greater than 30
[2024-05-14 11:36] LABS: Glucose,Whole Blood 123 mg/dL (70-110)
[2024-05-14] MEDS: FLUCONAZOLE 100 MG TAB PO SCH (12:22)
--- NOTE | 2024-05-14 14:16 | XR ---
EXAM: XR Chest, 2 Views CLINICAL HISTORY: POST OPEN HEART SURGERY F/U TECHNIQUE: Frontal and lateral views of the chest. COMPARISON: X-ray dated 05/12/2024. FINDINGS: Lungs: Opacification of the bilateral lung bases. Pleural space: Bilateral pleural effusions. No pneumothorax. Heart: Unremarkable. No cardiomegaly. Mediastinum: Postsurgical changes are seen over the mediastinum. Bones/joints: Sternotomy wires are in place. New program mild enlargement of the cardiac silhouette. No acute fracture. Tubes, lines and devices: Cardiac conduction device is in place over the left chest with 2 leads overlying the cardiac silhouette. IMPRESSION: Bilateral pleural effusions with adjacent atelectasis and/or pneumonia not excluded.
--- NOTE | 2024-05-14 14:41 | P.PN ---
Subjective Progress Note Date: 05/14/24 Principal diagnosis: Reason for follow-up is leukocytosis/UTI Patient is a 79-year-old female with a past medical history significant for Atrial Fibrillation, Heart Failure, CVA/TIA, Eye Disorder, Hearing Disorder / Deafness, Hyperlipidemia, Hypertension, Osteoarthritis (OA), Renal Disease, Skin Disorder electively admitted to the hospital after the patient did have aortic valve replacement mitral valve repair, did have urinary symptoms of burning positive UA concerning for UTI elevated white count prompted this consultation. On today's evaluation that is 05/14/2024, the patient continues to be afebrile, the patient is on room air and breathing comfortably, the Pt denies having any chest pain or cough, the patient denies having any abdominal pain no vomiting or any diarrhea still complaining of some sore throat. Patient white count is 12.8, creatinine is 1.12 Objective - Vital Signs Vital signs: Vital Signs Temp 97.4 F L 05/14/24 11:38 Pulse 80 05/14/24 12:21 Resp 16 05/14/24 11:38 BP 86/60 05/14/24 11:38 Pulse Ox 93 L 05/14/24 11:38 FiO2 0 05/13/24 12:11 Intake & Output 05/13/24 05/14/24 05/14/24 18:59 06:59 18:59 Intake Total 616 780 240 Output Total 206 1401 Balance -1444 -621 240 Weight 63.4 kg 56.4 kg Intake: IV 86 0.9 PRESSURE BAG 6 Cefepime 1 gm In Sodium 50 Chloride 0.9% 50 ml @ 12. 5 mls/hr IVPB Q12H [facility] Rx #:[id number] Sodium Chloride 0.9% 1, 30 000 ml @ 30 mls/hr IV . Q24H [facility] Rx#:[id number] Oral 530 780 240 Output: Urine 2059 1400 Stool 1 Other: Voiding Method Bedside Commode Toilet Bedside Commode ABP, PAP, CO, CI - Last Documented Arterial Blood Pressure 106/55 Pulmonary Artery Pressure 39/22 Cardiac Output 2.4 Cardiac Index 1.5 - Exam GENERAL DESCRIPTION: An elderly In the chair in no distress RESPIRATORY SYSTEM: Unlabored breathing , decreased breath sounds at bases HEART: S1 S2 regular rate and rhythm , ABDOMEN: Soft , no tenderness EXTREMITIES: No edema feet - Labs CBC & Chem 7: 03/21/25 06:16 05/14/24 06:16 Labs: Abnormal Lab Results - Last 24 Hours (Table) 05/13/24 05/14/24 05/14/24 Range/Units 20:02 05:49 06:16 WBC 12.8 H (3.8-10.6) k/uL RBC 2.91 L (3.80-5.40) m/uL Hgb 9.6 L (11.4-16.0) gm/dL Hct 30.5 L (34.0-46.0) % MCV 105.0 H (80.0-100.0) fL RDW 22.9 H (11.5-15.5) % Macrocytosis Marked A Sodium (137-145) mmol/L Chloride (98-107) mmol/L BUN (7-17) mg/dL Creatinine (0.52-1.04) mg/dL Glucose (74-99) mg/dL POC Glucose (mg/dL) 141 H 132 H (70-110) mg/dL AST (14-36) U/L ALT (4-34) U/L Alkaline Phosphatase (38-126) U/L Total Protein (6.3-8.2) g/dL Albumin (3.5-5.0) g/dL 05/14/24 05/14/24 Range/Units 06:16 11:34 WBC (3.8-10.6) k/uL RBC (3.80-5.40) m/uL Hgb (11.4-16.0) gm/dL Hct (34.0-46.0) % MCV (80.0-100.0) fL RDW (11.5-15.5) % Macrocytosis Sodium 133 L (137-145) mmol/L Chloride 96 L (98-107) mmol/L BUN 85 H (7-17) mg/dL Creatinine 1.12 H (0.52-1.04) mg/dL Glucose 118 H (74-99) mg/dL POC Glucose (mg/dL) 123 H (70-110) mg/dL AST 163 H (14-36) U/L ALT 334 H (4-34) U/L Alkaline Phosphatase 160 H (38-126) U/L Total Protein 5.8 L (6.3-8.2) g/dL Albumin 3.3 L (3.5-5.0) g/dL Microbiology - Last 24 Hours (Table) 05/10/24 13:57 Blood Culture - Preliminary Blood Assessment and Plan (1) Leukocytosis Current Visit: Yes Status: Acute Code(s): D72.829 - ELEVATED WHITE BLOOD CELL COUNT, UNSPECIFIED SNOMED Code(s): 048686492 (2) UTI (urinary tract infection) Current Visit: Yes Status: Acute Code(s): N39.0 - URINARY TRACT INFECTION, SITE NOT SPECIFIED SNOMED Code(s): 79162012 Plan: 1patient with elevated white count in this patient electively admitted to hospital and is status post aortic valve replacement and mitral valve repair she did have urinary catheter postsurgery which has been discontinued yesterday now with cloudy urine difficulty urination ID clinic suspicious for urinary source to be responsible for this elevated white count and need to be treated agg ressively with recent cardiac procedure 2-patient did have a positive UA blood and urine culture currently pending as well as blood culture 3-patient is afebrile white count mildly elevated 12,000 urine culture have been negative cefepime discontinued Diflucan added with persistent symptoms of sore throat possible component of thrush/candidiasis discussed with the CT surgery AIR B[employer]KE [employer]IGGER Dictation was produced using [employer] dictation software. please excuse any grammatical, word or spelling errors. Time with Patient: Less than 30
[2024-05-14 16:32] LABS: Glucose,Whole Blood 106 mg/dL (70-110)
--- NOTE | 2024-05-14 17:09 | P.PN ---
Progress Note - Text Progress Note Date: 05/14/24 - Chief Complaint Aortic valve replacement etc. - History of Present Illness This is a pleasant 79year-old patient, follows with Dr. Thayer. 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 Kimbrough macular degeneration. Patient yesterday underwent arctic valve replacement with a bioprosthesis, mitral valve repair with annuloplasty, exclusion of left atrial appendage using a clip,. Today patient is up in a chair. Extubated. Drips include IV insulin, milrinone, amiodarone. Plan to being switched over to p.o. Paced rhythm. Has to chest tubes mediastinal. Clear liquid diet. Doing about 1000 cc on incentive spirometry. May 05: Sitting up in a recliner. Slight shortness of breath. On IV milrinone and IV heparin drip. Paced rhythm. [address] Eating fair. Been taken off insulin drip. May 06: Saw this afternoon. Up in a recliner. Did transfer from the bed to the chair. Some shortness of breath. A-fib. Given further IV loading IV amiodarone. Remains on IV milrinone. Chest tubes are out. Palacios catheter in place. Eating fair. Sodium a bit worse. Received IV Lasix and albumin. May 07: Up in a recliner. . Palacios catheter remains in place. Tired. Eating fair. Blood pressure remains lower side.-IV milrinone. On hydralazine for afterload reduction. 5 L nasal cannula. Received IV Lasix 20 mg today. Remains in atrial fibrillation. Chest x-ray shows pleural effusion/vascular congestion. May 08: ICU. Up in a recliner. Some shortness of breath. Palacios catheter. Patient switched to oral amiodarone. On 4 L nasal cannula. Eating some. Had a bowel movement. Patient been taken off IV milrinone. Remains in A-fib. Tired. LFTs have bumped up.-Note patient is on amiodarone. To switch to p.o. Could be ischemic hepatitis component. [IV amiodarone discontinued yesterday] May 09: ICU. In a recliner. Remains a bit short of breath. Tired. Eating some. Has been in and out of A-fib with paced rhythm. Remains of IV milrinone. On 4.5 L nasal cannula. Chest x-ray film personally reviewed by me-some scattered infiltrates. Urea added by nephrology for hyponatremia. May 10: ICU. Up in the recliner. Remains tired a bit short of breath. Had a BM yesterday. Patient getting IV albumin. Back on IV milrinone. Since patient is in and out of atrial fibrillation. Further increase in LFTs. Sodium down to 124. 1 dose of tolvaptan given per nephrology. Did text down from cardiothoracic team. Amiodarone should be held given LFTs much elevated. Probable UTI-IV cefepime started by ID. Hydralazine held today May 11: ICU. Up in a recliner. Yesterday underwent left-sided thoracentesis 100 cc removed. Patient dose of amiodarone is being cut back from tomorrow to 200 mg twice daily. Remains on IV cefepime. Also on IV milrinone for hypertension. Also remains on urea twice daily for hyponatremia. Also dose of hydralazine has been cut back. To 25 mg twice daily. Patient been off for urinary catheter at least for 24 hours. Patient did ambulate in the hallway with the staff. Some shortness of breath May 12: ICU. Up in a recliner. Breathing better. 2 L nasal cannula this afternoon. Eating fair. On amiodarone 200 mg twice daily. Remains on IV cefepime. Urea. Is being bothered by restless leg syndrome. Mirapex at night has been added. Remains on DuoNeb. Patient walked 3 feet with physical therapy as documented. IV Lasix. Good urine output. : ICU. Patient seen this morning. Up in a chair. Breathing actually better. Off oxygen on room air. Remains on IV cefepime. Urine culture has been finalized negative. Blood cultures negative growth at 72 hours. Patient will be moved out of the ICU. A-fib. May 14: Patient on the medical floor. Up in a recliner. Remains on room air. Had about 25% of her breakfast.Remains on IV Lasix 40 mg every 12. Oral amiodarone. Eliquis. Cefepime was discontinued by ID. Diflucan added for possible oropharyngeal thrush. Still weak. Walked about 3 feet with physical therapy. Looking to go to rehab. Spoke to the patient daughter at the bedside. LFTs very slowly coming down Active Medications Acetaminophen (Acetaminophen Tab 325 Mg Tab) 650 mg PO Q4HR PRN PRN Reason: Fever And/ Or Mild Pain (1-3) Last Admin: 05/14/24 01:11 Dose: 650 mg Albuterol/Ipratropium (Ipratropium-Albuterol 3 Ml Neb) 3 ml INHALATION RT-Q2H PRN PRN Reason: Shortness Of Breath Or Wheezing Last Admin: 05/08/24 01:40 Dose: 3 ml Albuterol/Ipratropium (Ipratropium-Albuterol 3 Ml Neb) 3 ml INHALATION RT-QID [facility] Last Admin: 05/14/24 15:17 Dose: 3 ml Amiodarone HCl (Amiodarone 200 Mg Tab) 200 mg PO BID [facility] Last Admin: 05/14/24 08:33 Dose: 200 mg Apixaban (Apixaban 5 Mg Tab) 5 mg PO BID [facility]; Protocol Last Admin: 05/14/24 08:33 Dose: 5 mg Ascorbic Acid (Ascorbic Acid 500 Mg Tab) 500 mg PO DAILY [facility] Last Admin: 05/14/24 08:33 Dose: 500 mg Aspirin (Aspirin 81 Mg) 81 mg PO DAILY [facility] Last Admin: 05/14/24 08:33 Dose: 81 mg Benzocaine/Menthol (Benzocaine/Menthol Lozeng 1 Each Lozenge) 1 each MUCOUS MEM Q2H PRN PRN Reason: Sore Throat Last Admin: 05/12/24 01:04 Dose: 1 each Bisacodyl (Bisacodyl 10 Mg Supp) 10 mg RECTAL DAILY PRN PRN Reason: Constipation Last Admin: 05/12/24 15:06 Dose: 10 mg Cholecalciferol (Cholecalciferol 25 Mcg (1000 Iu) Tablet) 75 mcg PO DAILY [facility] Last Admin: 05/14/24 08:31 Dose: 75 mcg Dextrose/Water (Dextrose 50% Syringe 50 Ml) 25 ml IVP PER PROTOCOL PRN; Protocol PRN Reason: Hypoglycemia Fluconazole (Fluconazole 100 Mg Tab) 100 mg PO DAILY [facility]; Protocol Stop: 05/21/24 10:29 Last Admin: 05/14/24 12:22 Dose: 100 mg Furosemide (Furosemide 10 Mg/Ml 4 Ml Vial) 40 mg IV Q12HR [facility] Last Admin: 05/14/24 08:33 Dose: 40 mg Hydralazine HCl (Hydralazine Hcl 25 Mg Tab) 25 mg PO Q12HR [facility] Last Admin: 05/14/24 08:26 Dose: 25 mg Calcium Gluconate/Sodium (Chloride 2 gm/ IV Solution) 100 mls @ 100 mls/hr IVPB ONCE PRN PRN Reason: Ionized Calcium less than 4.4 Stop: 06/02/24 13:59 Insulin Human Lispro (Insulin Lispro (Humalog) 100 Unit/Ml 10 Ml Vl) 0 unit SQ ACHS [facility]; Protocol Last Admin: 05/14/24 16:32 Dose: Not Given Lactobacillus Acidophilus (Lactobacillus Acidophilus/Pect 1 Each Capsule) 1 each PO BID [facility] Last Admin: 05/14/24 08:37 Dose: 1 each Melatonin (Melatonin 3 Mg Tablet) 6 mg PO HS [facility] Last Admin: 05/13/24 21:05 Dose: Not Given Metoclopramide HCl (Metoclopramide 5 Mg/Ml 2 Ml Vial) 10 mg IVP Q4H PRN PRN Reason: Nausea And Vomiting Last Admin: 05/07/24 07:04 Dose: 10 mg Metoprolol Tartrate (Metoprolol Tartrate 25 Mg Tab) 25 mg PO BID [facility] Last Admin: 05/14/24 08:26 Dose: 25 mg Miscellaneous Information (Potassium Replacement Protocol 1 Each Misc) 1 each MISCELLANE DAILY PRN; Protocol PRN Reason: Per Protocol Miscellaneous Information (Magnesium Replacement Protocol 1 Each Misc) 1 each MISCELLANE DAILY PRN; Protocol PRN Reason: Per Protocol Multivitamins/Minerals (Vit A,C & H-Dnkswo-Eqpwcfcz 1 Each Tab) 1 each PO BID [facility] Last Admin: 05/14/24 08:25 Dose: 1 each Nystatin (Nystatin 100,000 Unit/Ml Susp 500,000 Unit/5 Ml Cup) 500,000 unit PO QID [facility]; Protocol Last Admin: 05/14/24 17:04 Dose: 500,000 unit Ondansetron HCl (Ondansetron 4 Mg/2 Ml Vial) 4 mg IVP Q6HR PRN PRN Reason: Nausea And Vomiting Last Admin: 05/14/24 09:16 Dose: 4 mg Pantoprazole Sodium (Pantoprazole 40 Mg Tablet) 40 mg PO AC-BRKFST [facility] Last Admin: 05/14/24 06:52 Dose: 40 mg Pramipexole Dihydrochloride (Pramipexole 0.5 Mg Tab) 0.5 mg PO [facility] Last Admin: 05/13/24 20:59 Dose: 0.5 mg Senna/Docusate Sodium (Sennosides-Docusate Sodium 1 Each Tab) 2 each PO [facility] Last Admin: 05/13/24 20:57 Dose: 2 each Sodium Chloride (Sodium Chloride 0.9% Flush 10 Ml Syringe) 10 ml IV BID [facility] Last Admin: 05/14/24 08:33 Dose: 10 ml Urea (Urea 15 Gm Powd.Pack) 15 gm PO BID [facility] Last Admin: 05/14/24 08:32 Dose: 15 gm Social history: Lives alone. Denies any alcohol or smoking history. Physical examination: VITAL SIGNS: 97.4, 76, 16, 86 x 60, 93% room air GENERAL:, up in a recliner, awake, more comfortable EYES: Pupils equal. Conjunctiva clifford l. HEENT: External appearance of nose and ears normal, oral cavity grossly normal. Decreased hearing NECK: JVD unable to assess; masses not palpable. HEART: Heart sounds irregular; Venodyne boots LUNGS: Respiratory rate i normal; i diminished breath sounds. ABDOMEN: Soft, nontender, liver spleen not palpable, no masses palpable. Daily PSYCH: Alert and oriented x3; mood and affect, tired. MUSCULOSKELETAL:No Clubbing/cyanosis;muscles-grossly intact. OA INVESTIGATIONS, reviewed in the clinical context: May 14: White count 12.8 hemoglobin 9.6 platelets 180 sodium 133 potassium 4.5 pain 85 creatinine 1.12. AST 163 ALT 334 May 13: White count 12.17: 9.3 platelets 172 sodium 132 potassium 4.6 BUN 82 creatinine 1.18 AST 253 ALT 407 May 11: White count 11.7 hemoglobin 9.5 platelets 190 sodium 123 potassium 5.3 BUN 93 creatinine 1.21 AST 363 ALT 446 2D echo: EF 45 to 50%. Atypical septal motion. Both atria enlarged. Bioprosthetic aortic valve stable.. No pericardial effusion May 10: White count 18.2 hemoglobin 8.8 platelets 160 sodium 124 potassium 4.8 BUN 75 creatinine 1.26 AST 435 ALT 441 CRP 17.2. UA positive for leukoesterase WBC May 09: White count 17 hemoglobin 9.3 sodium 127 potassium 5 BUN 43 creatinine 1.08 ABG: pH 7.39 pO2 less than 30 May 08: White count 15.1 hemoglobin 9 platelets 139 sodium 128 potassium 4.9 creatinine 1.01 AST 325 ALT 218 May 04, 2024: White count 8.7 hemoglobin 9.5 platelets 64 sodium 137 potassium 5.6 BUN 19 creatinine 0.87 magnesium 2.5 iron 16 TIBC 154% saturation 10.3 transferrin 110 ferritin 176 Chest x-ray film personally reviewed by me-some venous prominence. Pacemaker Previous April 27, 2024: Hemoglobin 14.5 platelets 210 2D echocardiogram [April 29, 2023] EF 40%. Moderate MR. Severe TR. Severe pulmonary hypertension. Severe AR. Cardiac catheterization [April 2022] mild nonobstructive CAD Assessment plan: -aorctic valve replacement with a bioprosthesis, mitral valve repair with annuloplasty, exclusion of left atrial appendage using a clip, on May 03, [address] Hammond [Prior moderate mitral regurgitation, severe tricuspid regurgitation, severe aortic regurgitation] -Persistent atrial fibrillation., With patient being in and out of atrial fibrillation Lopressor 25 mg twice daily. Cordarone -Acute hepatitis: Possibly combination of hypotension and being on amiodarone.: Amiodarone dose has been cut back by cardiothoracic team. Follow LFTs -Acute hypoxic respiratory failure secondary to pulmonary edema/pleural effusion:: Improved Patient now is on room air -Acute postprocedure blood loss anemia expected from surgery Follow H&H -Dilutional thrombocytopenia. Preoperative platelets 210: Resolved -Left pleural effusion, possibly secondary to CHF Pulmonary following. 700 cc left thoracentesis done May 10 -Hyperkalemia: Corrected Calcium gluconate, insulin given. -Hyponatremia likely hypervolemic, much improved Follow fluid status closely. Encourage oral intake. Tolvaptan given. On urea -Hypoalbuminemia, multifactorial: Received IV albumin -Acute UTI with cystitis secondary to Palacios catheter Urine culture negative IV cefepime-course completed -Hard of hearing -Acute on chronic congestive heart failure exacerbation from mild systolic dysfunction nonischemic cardiomyopathy EF 45 to 50%: Improving IV Lasix 40 mg every 12 -Severe secondary pulmonary hypertension -Hypotension, cardiac: Better On IV milrinone-discontinue -Primary osteoarthritis Tylenol as needed -Colonic diverticulosis, asymptomatic -Chronic kidney disease stage IIIa, baseline creatinine from 1 2-1.3, secondary nephrosclerosis Follows with Dr. Kimbrough outpatient -Acute medical debility, following surgery PT OT on the case. Looking to go to rehab -Pacemaker 2016, for sick sinus syndrome -Full code Discussed with patient daughter. Continue current treatment. Thank you Dr. Hammond Past Medical History Past Medical History: Atrial Fibrillation, Heart Failure, CVA/TIA, Eye Disorder, Hearing Disorder / Deafness, Hyperlipidemia, Hypertension, Osteoarthritis (OA), Renal Disease, Skin Disorder Additional Past Medical History / Comment(s): SOB in the evening and through the night has improved with med changes. Tinnitus, bilateral hearing aid use. Diverticular disease, hemorrhoids. Hx kidney stones. hx Anemia. Hx CVA-no re sidual, leaky aortic(severe) and mitral valve(mild), 3rd heart valve leaking, left bundle branch block, tachy-chase syndrome, vertigo. Stage 3 kidney disease. Macular degeneration left eye. Small hiatal hernia. Reddness to cheeks, at times feels tingling. watching shadow by liver. History of Any Multi-Drug Resistant Organisms: None Reported Past Surgical History: Adenoidectomy, Appendectomy, Section, Heart Catheterization, Pacemaker, Tonsillectomy Additional Past Surgical History / Comment(s): SINUS SURGERY, section X3, CHRISTY, colonoscopy. Past Anesthesia/Blood Transfusion Reactions: No Reported Reaction Additional Past Anesthesia/Blood Transfusion Reaction / Comm: Hx blood transfusion with no issues 50 yrs ago. Type of Cardiac Device: Permanent Pacemaker Device Placement Date:: 01/2017 Left chest Smoking Status: Never smoker
--- NOTE | 2024-05-14 18:56 | P.PN ---
Subjective Patient is seen for follow-up for hyponatremia. Overall feels better. Serum sodium at 133 and creatinine has improved to 1.1. Volume status has improved. 24-hour urine output documented at 3.4.0 L. Objective - Vital Signs Vital signs: Vital Signs Temp 97.4 F L 05/14/24 11:38 Pulse 91 05/14/24 16:00 Resp 14 05/14/24 16:00 BP 103/71 05/14/24 16:00 Pulse Ox 94 L 05/14/24 16:00 FiO2 0 05/13/24 12:11 Intake & Output 05/13/24 05/14/24 05/14/24 18:59 06:59 18:59 Intake Total 616 780 358 Output Total 2060 1401 900 Balance -1444 -621 -542 Weight 63.4 kg 56.4 kg Intake: IV 86 0.9 PRESSURE BAG 6 Cefepime 1 gm In Sodium 50 Chloride 0.9% 50 ml @ 12. 5 mls/hr IVPB Q12H [facility] Rx #:[id number] Sodium Chloride 0.9% 1, 30 000 ml @ 30 mls/hr IV . Q24H [facility] Rx#:[id number] Oral 530 780 358 Output: Urine 2059 1400 900 Stool 1 Other: Voiding Method Bedside Commode Toilet Bedside Commode Bedside Commode ABP, PAP, CO, CI - Last Documented Arterial Blood Pressure 106/55 Pulmonary Artery Pressure 39/22 Cardiac Output 2.4 Cardiac Index 1.5 - Labs CBC & Chem 7: 05/14/24 06:16 05/14/24 06:16 Labs: Abnormal Lab Results - Last 24 Hours (Table) 05/13/24 05/14/24 05/14/24 Range/Units 20:02 05:49 06:16 WBC 12.8 H (3.8-10.6) k/uL RBC 2.91 L (3.80-5.40) m/uL Hgb 9.6 L (11.4-16.0) gm/dL Hct 30.5 L (34.0-46.0) % MCV 105.0 H (80.0-100.0) fL RDW 22.9 H (11.5-15.5) % Macrocytosis Marked A Sodium (137-145) mmol/L Chloride (98-107) mmol/L BUN (7-17) mg/dL Creatinine (0.52-1.04) mg/dL Glucose (74-99) mg/dL POC Glucose (mg/dL) 141 H 132 H (70-110) mg/dL AST (14-36) U/L ALT (4-34) U/L Alkaline Phosphatase (38-126) U/L Total Protein (6.3-8.2) g/dL Albumin (3.5-5.0) g/dL 05/14/24 05/14/24 Range/Units 06:16 11:34 WBC (3.8-10.6) k/uL RBC (3.80-5.40) m/uL Hgb (11.4-16.0) gm/dL Hct (34.0-46.0) % MCV (80.0-100.0) fL RDW (11.5-15.5) % Macrocytosis Sodium 133 L (137-145) mmol/L Chloride 96 L (98-107) mmol/L BUN 85 H (7-17) mg/dL Creatinine 1.12 H (0.52-1.04) mg/dL Glucose 118 H (74-99) mg/dL POC Glucose (mg/dL) 123 H (70-110) mg/dL AST 163 H (14-36) U/L ALT 334 H (4-34) U/L Alkaline Phosphatase 160 H (38-126) U/L Total Protein 5.8 L (6.3-8.2) g/dL Albumin 3.3 L (3.5-5.0) g/dL Microbiology - Last 24 Hours (Table) 05/10/24 13:57 Blood Culture - Preliminary Blood Assessment and Plan Assessment: 1. Chronic kidney disease stage IIIa with baseline creatinine 1-1.3 secondary to nephrosclerosis. 2. Status post aortic valve replacement and mitral valve repair May 03, 2024. On Primacor. 3. Mild hyperkalemia secondary to underlying CKD and use of KHADIJAH inhibitor. Resolved. 4. Anemia. Iron deficiency noted. Status post IV iron completed May 08, 2024. 5. Volume overload, slowly improving with diuresis 6. Hypervolemic hyponatremia. Urine sodium less than 20 and urine osmolality 418. TSH normal. Patient was maintained on milrinone which is based in dextrose, contributing to hyponatremia, now discontinued 7. Acute kidney injury, ATN, nonoliguric secondary to hypotension, improved Plan: Continue to diurese patient. Continue same dose for now. Possibly switch to oral diuretics in a.m. Continue with urea Repeat labs in a.m.
[2024-05-14 20:40] LABS: Glucose,Whole Blood 166 mg/dL (70-110)
[2024-05-15 06:22] LABS: Glucose,Whole Blood 134 mg/dL (70-110)
--- NOTE | 2024-05-15 07:16 | XR ---
EXAMINATION TYPE: XR chest 2V DATE OF EXAM: 05/15/2024 CLINICAL INDICATION: Female, 79 years old with history of Postop Cardiac surgery, TECHNIQUE: Frontal and lateral views of the chest are obtained. COMPARISON: Chest x-ray from one day earlier and older study FINDINGS: Overlying sternal wires are redemonstrated. Left atrial appendage clip and metallic aortic valve are redemonstrated. Persistent cardiomegaly with dual lead pacemaker and small left greater than right pleural effusions along with central vascular congestion . Bibasilar opacities favors compressive atelectasis. The osse ous structures are intact. IMPRESSION: Findings consistent with CHF exacerbation/fluid overload state. No significant change fro m one day earlier. [facility], , 05/15/2024 7:14 AM
[2024-05-15 07:44] LABS: Anisocytosis Moderate; HCT 31.2 % (34.0-46.0); HGB 9.8 gm/dL (11.4-16.0); Hypochromasia Marked; MCHC 31.5 g/dL (31.0-37.0); MCV 104.7 fL (80.0-100.0); Macrocytosis Marked; Mean Platelet Volume 9.6; Platelet Count 156 k/uL (150-450); Poikilocytosis Slight; RBC 2.98 m/uL (3.80-5.40); RDW 22.1 % (11.5-15.5)
[2024-05-15 07:52] LABS: ALT 260 U/L (4-34); AST 97 U/L (14-36); African American GFR (CKD) 54 (>60 ml/min/1.73 sqM); Albumin 3.1 g/dL (3.5-5.0); Alkaline Phosphatase 154 U/L (38-126); Anion Gap 8 mmol/L; Blood Urea Nitrogen 84 mg/dL (7-17); Calcium 8.9 mg/dL (8.4-10.2); Carbon Dioxide 31 mmol/L (22-30); Chloride 94 mmol/L (98-107); Glucose 109 mg/dL (74-99); Non-African American GFR(CKD) 47 (>60 ml/min/1.73 sqM); Potassium 4.5 mmol/L (3.5-5.1); Sodium 133 mmol/L (137-145); Total Bilirubin 0.9 mg/dL (0.2-1.3); Total Protein 5.6 g/dL (6.3-8.2)
[2024-05-15 08:32] LABS: Lymphocytes # (M) 0.35 k/uL (1.0-4.8); Monocytes # (M) 0.78 k/uL (0-1.0); Neutrophils # (M) 7.66 k/uL (1.3-7.7); Neutrophils % (M) 88 %; Nucleated Red Blood Cells 3 /100 WBC (0-0); Total Cells Counted 200; WBC 8.7 k/uL (3.8-10.6)
[2024-05-15 08:33] LABS: Polychromasia Present
--- NOTE | 2024-05-15 09:10 | P.PN ---
Subjective Progress Note Date: 05/15/24 Principal diagnosis: Severe aortic valve regurgitation, moderate mitral valve regurgitation, mild to moderate tricuspid valve regurgitation, and mild pulmonary hypertension. Medic al history history for moderate left ventricular dysfunction, chronic heart failure with reduced ejection fraction, hypertension, chronic kidney disease stage III, iron deficiency anemia, paroxysmal atrial fibrillation with cardioversion in 2023 on Eliquis for anticoagulation status post permanent dual- chamber pacemaker, embolic stroke with full recovery, hard of hearing, osteoarthritis, mild lung disease, COVID in 2021, and lifelong non-smoker. POD #12 aortic valve replacement using a 19 mm Inspiris pericardial bioprosthesis, mitral valve repair using a posterior annuloplasty band 26 mm annuloflex, exclusion of the left atrial appendage using a 35mm AtriClip, and transesophageal echocardiogram and epiaortic scanning. Postoperative blood loss anemia and thrombocytopenia, expected given c ardiopulmonary bypass and hemodilution. Hypervolemic hyponatremia. Transaminitis, felt to be from volume overload, AST/ALT trending down. Leukocytosis, unknown etiology, urine culture negative. The patient was seen and examined in follow-up today May 15, 2024 at her bedside on the third floor cardiac stepdown unit. She is currently sitting up to the bedside chair, is awake, alert, oriented x 3 and is in no acute apparent distress. She denies any complaints of pain or shortness of breath at this time, although is complaining of some generalized weakness and feeling fatigued today. She reports she went for 3-4 walks yesterday and tolerated well but felt tired after doing the walks. She remains hemodynamically stable and is currently on no inotropic or pressor support. Oxygen saturations are 99% on room air and she is achieving 500 to 750 mL on her incentive spirometry with encouragement. Remote telemetry is showing atrial fibrillation heart rate 97 bpm. She remains on amiodarone 200 mg p.o. twice daily and her metoprolol to tartrate has been increased to 25 mg p.o. twice daily by cardiology yesterday 05/14/2024. Urine culture came back negative for any organism, cefepime was discontinued and she was started on Diflucan for treatment of thrush. Her laboratory results show a normal WBC count today of 8.7. She has been afebrile in the last 24 hours. Chest x-ray and laboratory results were reviewed. Objective - Vital Signs Vital signs: Vital Signs Temp 97.4 F L 05/15/24 03:42 Pulse 60 05/15/24 03:42 Resp 16 05/15/24 03:42 BP 92/52 05/15/24 03:42 Pulse Ox 97 05/15/24 03:42 FiO2 0 05/13/24 12:11 Intake & Output 05/14/24 05/14/24 05/15/24 06:59 18:59 06:59 Intake Total 780 358 Output Total 6617 476 0975 Balance -621 -542 -1300 Weight 63.4 kg 56.4 kg 55.5 kg Intake: Oral 780 358 Output: Urine 4164 [id number] [id number] Stool 1 Other: Voiding Method Toilet Bedside Commode Toilet Bedside Commode ABP, PAP, CO, CI - Last Documented Arterial Blood Pressure 106/55 Pulmonary Artery Pressure 39/22 Cardiac Output 2.4 Cardiac Index 1.5 - Exam CONSTITUTIONAL: Appears comfortable, cooperative, no acute distress RESPIRATORY: Lungs sounds diminished in the bases bilaterally. Respirations symmetrical, nonlabored. Currently on room air with oxygen saturation 99%. Able to achieve 500-750 mL on her incentive spirometry. Strong cough. CARDIOVASCULAR: S1, S2 present. Irregular rate and rhythm, atrial fibrillation on remote telemetry, heart rate 97 bpm. Sternum stable. Palpable peripheral pulses bilaterally. Trace bilateral upper extremity and thigh edema present. No calf pain or tenderness noted. Heart hugger in place with patient demonstrating appropriate use. Antiembolism stockings, SCDs present. GASTROINTESTINAL: Abdomen soft, nontender, nondistended. Active bowel sounds present 4 quadrants. Tolerating diet. Bowel movement 05/14/24 GENITOURINARY: Continues to void. Urine output 500 mL in the last 8 hours. INTEGUMENTARY: Skin is warm and dry with no clubbing or cyanosis present. Midline sternal chest incision well approximated and covered with dry intact dressing. NEUROLOGIC: Cranial nerves II through XII intact. MUSKULOSKELETAL: Able to move all extremities, strength equal bilaterally, gait normal. PSYCHIATRIC: Alert and oriented to person place and time, appropriate affect, intact judgment and insight. - Allied health notes Allied health notes reviewed: nursing - Labs CBC & Chem 7: 05/15/24 05:57 05/15/24 05:57 Labs: Abnormal Lab Results - Last 24 Hours (Table) 05/14/24 05/14/24 05/14/24 Range/Units 06:16 06:16 11:34 WBC 12.8 H (3.8-10.6) k/uL RBC 2.91 L (3.80-5.40) m/uL Hgb 9.6 L (11.4-16.0) gm/dL Hct 30.5 L (34.0-46.0) % MCV 105.0 H (80.0-100.0) fL RDW 22.9 H (11.5-15.5) % Macrocytosis Marked A Sodium 133 L (137-145) mmol/L Chloride 96 L (98-107) mmol/L BUN 85 H (7-17) mg/dL Creatinine 1.12 H (0.52-1.04) mg/dL Glucose 118 H (74-99) mg/dL POC Glucose (mg/dL) 123 H (70-110) mg/dL AST 163 H (14-36) U/L ALT 334 H (4-34) U/L Alkaline Phosphatase 160 H (38-126) U/L Total Protein 5.8 L (6.3-8.2) g/dL Albumin 3.3 L (3.5-5.0) g/dL 05/14/24 05/15/24 Range/Units 20:21 06:00 WBC (3.8-10.6) k/uL RBC (3.80-5.40) m/uL Hgb (11.4-16.0) gm/dL Hct (34.0-46.0) % MCV (80.0-100.0) fL RDW (11.5-15.5) % Macrocytosis Sodium (137-145) mmol/L Chloride (98-107) mmol/L BUN (7-17) mg/dL Creatinine (0.52-1.04) mg/dL Glucose (74-99) mg/dL POC Glucose (mg/dL) 166 H 134 H (70-110) mg/dL AST (14-36) U/L ALT (4-34) U/L Alkaline Phosphatase (38-126) U/L Total Protein (6.3-8.2) g/dL Albumin (3.5-5.0) g/dL - Imaging and Cardiology Chest x-ray: report reviewed, image reviewed Assessment and Plan Assessment: Severe aortic valve regurgitation, status post aortic valve replacement Moderate mitral valve regurgitation, status post mitral valve repair Mild to moderate tricuspid valve regurgitation Mild pulmonary hypertension Postoperative blood loss anemia and thrombocytopenia, expected given cardiopulmonary bypass and hemodilution Hypervolemic hyponatremia Transaminitis, felt to be from volume overload Leukocytosis, felt to be from urinary tract infection Medical debility Oropharyngeal thrush History of chronic heart failure with reduced ejection fraction, EF 40% Hypertension Chronic kidney disease stage III Iron deficiency anemia Paroxysmal atrial fibrillation with cardioversion in 2023 on Eliquis for anticoagulation status post permanent dual-chamber pacemaker, status post liga tion of the left atrial appendage Embolic stroke with full recovery in 2016 Mild lung disease, preoperative FEV1 73% of predicted COVID in 2021 Lifelong non-smoker Plan: Continue to maximize medical therapy with low dose aspirin, Plavix and beta- pari. Will increase beta-pari therapy when tolerated. Metoprolol to tartrate was increased to 25 mg p.o. twice daily yesterday 05/14/2024. Continue hydralazine for afterload reduction with hold parameters. Continue oral amiodarone for atrial fibrillation prophylaxis. Continue Eliquis 5 mg p.o. twice daily for anticoagulation. No statin as the patient is sensitive to statins, no hyperlipidemia present Encourage incentive spirometry use 10 times every hour while awake. Bronchodilators per pulmonology. Will monitor daily labs and chest x-rays, electrolyte replacement per protocol. Diuresis per nephrology. Needs to be off IV Lasix to be transferred to inpatient rehab. Increase activity, ambulate as tolerated. PT/OT/cardiac rehab following. GI/DVT prophylaxis. Pain control per current medication regimen. No Toradol due to the patient's chronic kidney disease. Insulin management per internal medicine, preoperative hemoglobin A1c 6.1%. May bladder scan and straight cath for greater than 300 mL residual. Continue to monitor record strict accurate intake and output. Continue Diflucan 100 mg p.o. daily x 7 days for thrush. WBC Count 8.7 today. She remains afebrile. PM&R physician consulted for IPR at discharge, authorization for transfer pending. More recommendations to follow based on patient's clinical course. Time with Patient: Greater than 30
--- NOTE | 2024-05-15 10:04 | P.PN ---
Subjective This is a pleasant 79year-old patient, follows with Dr. Thayer. 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 Kimbrough macular degeneration. Patient yesterday underwent arctic valve replacement with a bioprosthesis, mitral valve repair with annuloplasty, exclusion of left atrial appendage using a clip,. Today patient is up in a chair. Extubated. Drips include IV insulin, milrinone, amiodarone. Plan to being switched over to p.o. Paced rhythm. Has to chest tubes mediastinal. Clear liquid diet. Doing about 1000 cc on in centive spirometry. May 05: Sitting up in a recliner. Slight shortness of breath. On IV milrinon e and IV heparin drip. Paced rhythm. [address] Eating fair. Been taken off insulin drip. May 06: Saw this afternoon. Up in a recliner. Did transfer from the bed to the chair. Some shortness of breath. A-fib. Given further IV loading IV amiodarone. Remains on IV milrinone. Chest tubes are out. Palacios catheter in place. Eating fair. Sodium a bit worse. Received IV Lasix and albumin. May 07: Up in a recliner. . Palacios catheter remains in place. Tired. Eating fair. Blood pressure remains lower side.-IV milrinone. On hydralazine for afterload reduction. 5 L nasal cannula. Received IV Lasix 20 mg today. Remains in atrial fibrillation. Chest x-ray shows pleural effusion/vascular congestion. May 08: ICU. Up in a recliner. Some shortness of breath. Palacios catheter. Patient switched to oral amiodarone. On 4 L nasal cannula. Eating some. Had a bowel movement. Patient been taken off IV milrinone. Remains in A-fib. Tired. LFTs have bumped up.-Note patient is on amiodarone. To switch to p.o. Could be ischemic hepatitis component. [IV amiodarone discontinued yesterday] May 09: ICU. In a recliner. Remains a bit short of breath. Tired. Eating some. Has been in and out of A-fib with paced rhythm. Remains of IV milrinone. On 4.5 L nasal cannula. Chest x-ray film personally reviewed by me-some scattered infiltrates. Urea added by nephrology for hyponatremia. May 10: ICU. Up in the recliner. Remains tired a bit short of breath. Had a BM yesterday. Patient getting IV albumin. Back on IV milrinone. Since patient is in and out of atrial fibrillation. Further increase in LFTs. Sodium down to 124. 1 dose of tolvaptan given per nephrology. Did text down from cardiothoracic team. Amiodarone should be held given LFTs much elevated. Probable UTI-IV cefepime started by ID. Hydralazine held today May 11: ICU. Up in a recliner. Yesterday underwent left-sided thoracentesis 100 cc removed. Patient dose of amiodarone is being cut back from tomorrow to 200 mg twice daily. Remains on IV cefepime. Also on IV milrinone for hypertension. Also remains on urea twice daily for hyponatremia. Also dose of hydralazine has been cut back. To 25 mg twice daily. Patient been off for urinary catheter at least for 24 hours. Patient did ambulate in the hallway with the staff. Some shortness of breath May 12: ICU. Up in a recliner. Breathing better. 2 L nasal cannula this afternoon. Eating fair. On amiodarone 200 mg twice daily. Remains on IV cefepime. Urea. Is being bothered by restless leg syndrome. Mirapex at night has been added. Remains on DuoNeb. Patient walked 3 feet with physical therapy as documented. IV Lasix. Good urine output. May 21: ICU. Patient seen this morning. Up in a chair. Breathing actually better. Off oxygen on room air. Remains on IV cefepime. Urine culture has be en finalized negative. Blood cultures negative growth at 72 hours. Patient will be moved out of the ICU. A-fib. 05/15 Patient sitting up in bed, she walked in the hallway with the help of her family. She got exertional tiredness. She states she still gets some exertional dyspnea and she has to stop but she denies chest pain. And she feels constipated and she wants something more for laxatives. Patient hemodynamically stable Labs check hemoglobin is 9.8 and creatinine 1.23. Sugar controlled Objective - Vital Signs Vital signs: Vital Signs Temp 97.4 F L 05/15/24 09:47 Pulse 97 05/15/24 09:47 Resp 18 05/15/24 09:47 BP 104/75 05/15/24 09:47 Pulse Ox 93 L 05/15/24 09:47 FiO2 0 05/13/24 12:11 Intake & Output 05/14/24 05/15/24 05/15/24 18:59 06:59 18:59 Intake Total 358 240 Output Total 900 1300 Balance -542 -1300 240 Weight 56.4 kg 55.5 kg Intake: Oral 358 240 Output: Urine 900 1300 Other: Voiding Method Bedside Commode Toilet ABP, PAP, CO, CI - Last Documented Arterial Blood Pressure 106/55 Pulmonary Artery Pressure 39/22 Cardiac Output 2.4 Cardiac Index 1.5 - Exam GENERAL: The patient is alert and oriented x3, not in any acute distress. Well developed, well nourished. HEENT: Pupils are round and equally reacting to light. EOMI. No scleral icterus. No conjunctival pallor. Normocephalic, atraumatic. No pharyngeal erythema. No thyromegaly. CARDIOVASCULAR: S1 and S2 present. No murmurs, rubs, or gallops. PULMONARY: Chest is clear to auscultation, no wheezing , no crackles. ABDOMEN: Soft, nontender, nondistended, normoactive bowel sounds. No palpable organomegaly. MUSCULOSKELETAL: No joint swelling or deformity. EXTREMITIES: No cyanosis, clubbing, or pedal edema. NEUROLOGICAL: Gross neurological examination did not reveal any focal deficits. SKIN: No rashes. no petechiae. - Labs CBC & Chem 7: 05/15/24 05:57 05/15/24 05:57 Labs: Abnormal Lab Results - Last 24 Hours (Table) 05/14/24 05/14/24 05/15/24 Range/Units 11:34 20:21 05:57 RBC 2.98 L (3.80-5.40) m/uL Hgb 9.8 L (11.4-16.0) gm/dL Hct 31.2 L (34.0-46.0) % MCV 104.7 H (80.0-100.0) fL RDW 22.1 H (11.5-15.5) % Lymphocytes # (Manual) 0.35 L (1.0-4.8) k/uL Nucleated RBCs 3 H (0-0) /100 WBC Macrocytosis Marked A Sodium (137-145) mmol/L Chloride (98-107) mmol/L Carbon Dioxide (22-30) mmol/L BUN (7-17) mg/dL Creatinine (0.52-1.04) mg/dL Glucose (74-99) mg/dL POC Glucose (mg/dL) 123 H 166 H (70-110) mg/dL AST (14-36) U/L ALT (4-34) U/L Alkaline Phosphatase (38-126) U/L Total Protein (6.3-8.2) g/dL Albumin (3.5-5.0) g/dL 05/15/24 05/15/24 Range/Units 05:57 06:00 RBC (3.80-5.40) m/uL Hgb (11.4-16.0) gm/dL Hct (34.0-46.0) % MCV (80.0-100.0) fL RDW (11.5-15.5) % Lymphocytes # (Manual) (1.0-4.8) k/uL Nucleated RBCs (0-0) /100 WBC Macrocytosis Sodium 133 L (137-145) mmol/L Chloride 94 L (98-107) mmol/L Carbon Dioxide 31 H (22-30) mmol/L BUN 84 H (7-17) mg/dL Creatinine 1.13 H (0.52-1.04) mg/dL Glucose 109 H (74-99) mg/dL POC Glucose (mg/dL) 134 H (70-110) mg/dL AST 97 H (14-36) U/L ALT 260 H (4-34) U/L Alkaline Phosphatase 154 H (38-126) U/L Total Protein 5.6 L (6.3-8.2) g/dL Albumin 3.1 L (3.5-5.0) g/dL Assessment and Plan Assessment: Assessment plan: -aorctic valve replacement with a bioprosthesis, mitral valve repair with annuloplasty, exclusion of left atrial appendage using a clip, on May 03, [address] Hammond [Prior moderate mitral regurgitation, severe tricuspid regurgitation, severe aortic regurgitation] -Persistent atrial fibrillation., With patient being in and out of atrial fibrillation Lopressor. Cordarone -Acute hepatitis: Possibly combination of hypotension and being on amiodarone.: Plateaued off Amiodarone dose has been cut back by cardiothoracic team. Follow LFTs -Acute hypoxic respiratory failure secondary to pulmonary edema/pleural effusion:: Improved Patient now is on room air -Acute postprocedure blood loss anemia expected from surgery Follow H&H -Dilutional thrombocytopenia. Preoperative platelets 210: Resolved -Left pleural effusion, possibly secondary to CHF Pulmonary following. 700 cc left thoracentesis done May 10 -Hyperkalemia: Corrected Calcium gluconate, insulin given. -Hyponatremia likely hypervolemic, much improved Follow fluid status closely. Encourage oral intake. Tolvaptan given. On urea -Hypoalbuminemia, multifactorial: Received IV albumin -Acute UTI with cystitis secondary to Palacios catheter IV cefepime -Hard of hearing -Acute on chronic congestive heart failure exacerbation from mild systolic dysfunction nonischemic cardiomyopathy EF 45 to 50%: Improving IV Lasix 40 mg every 12 -Severe secondary pulmonary hypertension -Hypotension, cardiac: Better On IV milrinone-discontinue -Primary osteoarthritis Tylenol as needed -Colonic diverticulosis, asymptomatic -Chronic kidney disease stage IIIa, baseline creatinine from 1 2-1.3, secondary nephrosclerosis Follows with Dr. Kimbrough outpatient -Pacemaker 2017, for sick sinus syndrome -Full code Continues to improve. Off oxygen.
--- NOTE | 2024-05-15 10:04 | P.PN ---
Subjective Progress Note Date: 05/15/24 This is Les Degroot NP, I'm dictating on behalf of Dr. Niño's H&P and A&P. Patient was interviewed and examined. Patient is a pleasant 79-year-old female status post aortic valve replacement and mitral valve repair. Patient is doing well this morning. She is denying any chest discomfort or shortness of breath. She overall reports that she feels well, and is hoping to be transition to inpatient rehab soon. GENERAL: Well-appearing, well-nourished and in no acute distress. NECK: Supple without JVD or thyromegaly. LUNGS: Breath sounds clear to auscultation bilaterally. Respiration equal and unlabored. No wheezes, rales or rhonchi. HEART: Regular rate and rhythm without murmurs, rubs or gallops. S1 and S2 heard. EXTREMITIES: Normal range of motion, no edema. No clubbing or cyanosis. Peripheral pulses intact and strong. VITALS: Temp 97.4, pulse 97, respirations 18, blood pressure 104/75, O2 saturation 93% on room air TELEMETRY: Sinus mechanism LABS: White count 8.7, hemoglobin 9.8, platelets 156, sodium 133, potassium 4.5, BUN 84, creatinine 1.13 IMPRESSION: 1. Severe arctic valve regurgitation, status post aortic valve replacement 2. Moderate mitral valve regurgitation, status post mitral valve repair 3. Transaminitis 4. History of chronic heart failure with reduced ejection fraction, EF 40% 5. Hypertension 6. Chronic kidney disease stage III 7. Paroxysmal atrial fibrillation 8. Sick sinus syndrome status post permanent dual-chamber pacemaker 9. Embolic stroke with full recovery in 2017 PLAN: Continue to follow postop CT surgery recommendations. Patient is stable from a cardiology standpoint. No further recommendations. Thank you for allowing us to participate in the care of this patient. Objective - Vital Signs Vital signs: Vital Signs Temp 97.4 F L 05/15/24 09:47 Pulse 97 05/15/24 09:47 Resp 18 05/15/24 09:47 BP 104/75 05/15/24 09:47 Pulse Ox 93 L 05/15/24 09:47 FiO2 0 05/13/24 12:11 Intake & Output 05/14/24 05/15/24 05/15/24 18:59 06:59 18:59 Intake Total 358 240 Output Total 900 1300 Balance -542 -1300 240 Weight 56.4 kg 55.5 kg Intake: Oral 358 240 Output: Urine 900 1300 Other: Voiding Method Bedside Commode Toilet ABP, PAP, CO, CI - Last Documented Arterial Blood Pressure 106/55 Pulmonary Artery Pressure 39/22 Cardiac Output 2.4 Cardiac Index 1.5 - Labs CBC & Chem 7: 05/15/24 05:57 05/15/24 05:57 Labs: Abnormal Lab Results - Last 24 Hours (Table) 05/14/24 05/14/24 05/15/24 Range/Units 11:34 20:21 05:57 RBC 2.98 L (3.80-5.40) m/uL Hgb 9.8 L (11.4-16.0) gm/dL Hct 31.2 L (34.0-46.0) % MCV 104.7 H (80.0-100.0) fL RDW 22.1 H (11.5-15.5) % Lymphocytes # (Manual) 0.35 L (1.0-4.8) k/uL Nucleated RBCs 3 H (0-0) /100 WBC Macrocytosis Marked A Sodium (137-145) mmol/L Chloride (98-107) mmol/L Carbon Dioxide (22-30) mmol/L BUN (7-17) mg/dL Creatinine (0.52-1.04) mg/dL Glucose (74-99) mg/dL POC Glucose (mg/dL) 123 H 166 H (70-110) mg/dL AST (14-36) U/L ALT (4-34) U/L Alkaline Phosphatase (38-126) U/L Total Protein (6.3-8.2) g/dL Albumin (3.5-5.0) g/dL 05/15/24 05/15/24 Range/Units 05:57 06:00 RBC (3.80-5.40) m/uL Hgb (11.4-16.0) gm/dL Hct (34.0-46.0) % MCV (80.0-100.0) fL RDW (11.5-15.5) % Lymphocytes # (Manual) (1.0-4.8) k/uL Nucleated RBCs (0-0) /100 WBC Macrocytosis Sodium 133 L (137-145) mmol/L Chloride 94 L (98-107) mmol/L Carbon Dioxide 31 H (22-30) mmol/L BUN 84 H (7-17) mg/dL Creatinine 1.13 H (0.52-1.04) mg/dL Glucose 109 H (74-99) mg/dL POC Glucose (mg/dL) 134 H (70-110) mg/dL AST 97 H (14-36) U/L ALT 260 H (4-34) U/L Alkaline Phosphatase 154 H (38-126) U/L Total Protein 5.6 L (6.3-8.2) g/dL Albumin 3.1 L (3.5-5.0) g/dL
[2024-05-15] MEDS: FUROSEMIDE 10 MG/ML 4 ML VIAL IV STA (10:06)
[2024-05-15] MEDS: polyethylene glycoL 3350 17 GM POWD.PACK PO STA (10:16)
--- NOTE | 2024-05-15 11:42 | P.PN ---
Subjective Patient is seen for follow-up for hyponatremia. Overall feels better. Serum sodium at 133 and creatinine has improved to 1.1. Volume status has improved. Objective - Vital Signs Vital signs: Vital Signs Temp 97.4 F L 05/15/24 09:47 Pulse 84 05/15/24 11:28 Resp 18 05/15/24 09:47 BP 104/75 05/15/24 09:47 Pulse Ox 93 L 05/15/24 09:47 FiO2 0 05/13/24 12:11 Intake & Output 05/14/24 05/15/24 05/15/24 18:59 06:59 18:59 Intake Total 358 250 Output Total 900 1300 Balance -542 -1300 250 Weight 56.4 kg 55.5 kg Intake: IV 10 Invasive Line 6 10 Oral 358 240 Output: Urine 900 1300 Other: Voiding Method Bedside Commode Toilet Toilet ABP, PAP, CO, CI - Last Documented Arterial Blood Pressure 106/55 Pulmonary Artery Pressure 39/22 Cardiac Output 2.4 Cardiac Index 1.5 - Exam Patient is awake, comfortable, no acute distress. Examination of the heart S1 and S2 Examination of the lungs bilateral breath sounds are heard Abdomen is soft Examination of lower extremities shows edema 1+ bilateral, improved MEDICAL ORDERLY exam grossly intact - Labs CBC & Chem 7: 05/15/24 05:57 05/15/24 05:57 Labs: Abnormal Lab Results - Last 24 Hours (Table) 05/14/24 05/15/24 05/15/24 Range/Units 20:21 05:57 05:57 RBC 2.98 L (3.80-5.40) m/uL Hgb 9.8 L (11.4-16.0) gm/dL Hct 31.2 L (34.0-46.0) % MCV 104.7 H (80.0-100.0) fL RDW 22.1 H (11.5-15.5) % Lymphocytes # (Manual) 0.35 L (1.0-4.8) k/uL Nucleated RBCs 3 H (0-0) /100 WBC Macrocytosis Marked A Sodium 133 L (137-145) mmol/L Chloride 94 L (98-107) mmol/L Carbon Dioxide 31 H (22-30) mmol/L BUN 84 H (7-17) mg/dL Creatinine 1.13 H (0.52-1.04) mg/dL Glucose 109 H (74-99) mg/dL POC Glucose (mg/dL) 166 H (70-110) mg/dL AST 97 H (14-36) U/L ALT 260 H (4-34) U/L Alkaline Phosphatase 154 H (38-126) U/L Total Protein 5.6 L (6.3-8.2) g/dL Albumin 3.1 L (3.5-5.0) g/dL 05/15/24 Range/Units 06:00 RBC (3.80-5.40) m/uL Hgb (11.4-16.0) gm/dL Hct (34.0-46.0) % MCV (80.0-100.0) fL RDW (11.5-15.5) % Lymphocytes # (Manual) (1.0-4.8) k/uL Nucleated RBCs (0-0) /100 WBC Macrocytosis Sodium (137-145) mmol/L Chloride (98-107) mmol/L Carbon Dioxide (22-30) mmol/L BUN (7-17) mg/dL Creatinine (0.52-1.04) mg/dL Glucose (74-99) mg/dL POC Glucose (mg/dL) 134 H (70-110) mg/dL AST (14-36) U/L ALT (4-34) U/L Alkaline Phosphatase (38-126) U/L Total Protein (6.3-8.2) g/dL Albumin (3.5-5.0) g/dL Assessment and Plan Assessment: 1. Chronic kidney disease stage IIIa with baseline creatinine 1-1.3 secondary to nephrosclerosis. BUN disproportionately elevated from urea tablets 2. Status post aortic valve replacement and mitral valve repair May 03, 2024. On Primacor. 3. Mild hyperkalemia secondary to underlying CKD and use of KHADIJAH inhibitor. Resolved. 4. Anemia. Iron deficiency noted. Status post IV iron completed May 08, 2024. 5. Volume overload, slowly improving with diuresis 6. Hypervolemic hyponatremia. Urine sodium less than 20 and urine osmolality 418. TSH normal. Patient was maintained on milrinone which is based in dextros e, contributing to hyponatremia, now discontinued 7. Acute kidney injury, ATN, nonoliguric secondary to hypotension, improved Plan: Switch to oral diuretics DC urea. Repeat labs in a.m.
[2024-05-15 12:10] LABS: Glucose,Whole Blood 133 mg/dL (70-110)
--- NOTE | 2024-05-15 12:37 | P.PN ---
Subjective Progress Note Date: 05/14/24 Principal diagnosis: POD # #11 aortic valve replacement using a 19 mm Inspiris pericardial bioprosthesis, mitral valve repair using a posterior annuloplasty band 26 mm annuloflex, exclusion of the left atrial appendage using a 35mm AtriClip, and transesophageal echocardiogram and epiaortic scanning. This is a 79-year-old female patient being seen in the intensive care unit postop as the patient had severe aortic valve regurgitation with mitral valve regurgitation and mild pulmonary hypertension and moderate LV dysfunction and the patient was taken to the operating room and underwent aortic valve replacement and mitral valve repair. The patient is also noted to have paroxysmal A-fib and has a pacemaker in place along with history of chronic kidney disease and previous history of embolic stroke with full recovery. The patient was brought into the intensive care and intubated on the mechanical ventilator. The patient was sedated with propofol. The patient is on the mechanical ventilator, assist-control mode rate of 12, tidal volume of 400, FiO2 of 100% with a PEEP of 5. Initial blood gases postop in the intensive care unit showed a pH of 7.57 with a pCO2 of 27 and pO2 of 256. FiO2 was dropped down to 60% and follow-up gases showed a pH of 7. 36 with a pCO2 of 47 and pO2 of 153. The patient's PA pressures were 38/28. Cardiac index was 1.7. Patient has mediastinal x2.. Chest x-ray showed adequate expansion of both lungs. No evidence of any pneumothorax. The patient has a right IJ [place] catheter in place. The patient is atrially paced at rate of 80. The patient is currently on low-dose norepinephrine and milrinone which is running at 0.2 mcg/kg/min. Urine output is adequate. Initial blood work showed a white cell count of 8 with a hemoglobin 9.1 and a platelet count of 66. The sodium is at 141, potassium is at 4.4, chloride is 109 with a bicarb of 25 BUN of 18 with a creatinine of 0.7. IV fluids are normal saline at rate of 50 cc an hour. No other significant events postop. On 05/04/2024, patient is being seen for a follow-up. The patient is post aortic valve replacement and mitral valve repair and the patient is postop day #2. The patient was weaned off the mechanical ventilator and the patient was extubated any major difficulties and the patient is currently on 2 L of oxygen by nasal cannula. Hemodynamically, the patient is still requiring inotropes and the patient is currently on Primacor which is running at 0.125 mcg/kg/min and the patient is off norepinephrine. Cardiac index today is at 2.3. PA pressures are 31/11. The patient remains atrially paced at a rate of 80. Urine output is noted of 30 cc an hour. Remains on amiodarone and the patient will be switched from amiodarone drip to oral amiodarone. Using incentive spirometer, pulling approximately thousand. Chest x-ray from this morning was noted and the patient has cardiomegaly and pulm vascular congestion and small bilateral pleural e ffusions. Mediastinal chest tubes are still in place and output is minimal at this point in time. The patient is calm and comfortable. Denies having any specific complaints. Remains on insulin drip which is running at 1 unit an hour for adequate blood sugar control. On 05/05/2024, the patient is being seen for a follow-up. The patient is currently on her intrinsic pacemaker and she is pacing at rate of 60. Her cardiac output and index are being monitored. Earlier this morning, the cardiac index was a 2.2. The patient remains on milrinone 0.125 mcg/kg/min. Urine output is adequate. Output from the chest tubes are minimal. Using incentive spirometer. She remains on 2 L of oxygen by nasal cannula. Chest x-ray from today shows small bilateral pleural effusions and cardiomegaly. Blood work from today shows a white cell count of 12.4, hemoglobin of 9.4 and platelet count of 73. BUN is 20 with a creatinine of 0.7 and sodium is at 130. The patient was started on metoprolol 12.5 mg p.o. twice a day. She is centimeter on 12 mg p.o. daily. She remains on aspirin. Rest of the medications remain unchanged. Midodrine was also added 5 mg p.o. 3 times daily. She is also on losartan 12.5 mg p.o. daily. She is currently postop day #2 following a aortic valve replacement and mitral valve repair. On today's evaluation 05/06/2024, the patient is being seen for a follow-up. The patient remains on 2 L of oxygen by nasal cannula. Chest x-ray findings remain unchanged the patient continues to have some small bilateral pleural effusions. The patient utilizing her intrinsic pacemaker. Urine output is in order of 30 to 40 cc an hour. She remains on milrinone at 0.25 mcg/kg/h and a cardiac index of 2.2. The patient is still inotrope dependent as the patient's cardiac output is dropping while the milrinone is being weaned. Meanwhile, the patient was given Lasix 40 mg IV push x 1. Awake and alert and communicating. No focal neurological deficits. Chest tubes have been removed. The white cell count of 14.1, hemoglobin is at 9.3 and a platelet count of 75. Sodium is at 126, BUN is 29 with a creatinine of 0.9. Potassium level is at 4.9. The patient is current ly on amiodarone 200 mg p.o. daily. The patient is also on metoprolol which is currently on hold. Midodrine at 5 mg p.o. 3 times daily. Aspirin and Plavix. Hydralazine 50 mg p.o. twice daily. Oxycodone for pain control. The patient is postop day #3 following awaiting placement and mitral valve repair. On 05/07/2024, the patient is being seen for a follow-up. The patient remains on 2 L of oxygen by nasal cannula and chest x-ray still showing evidence of bilateral pleural effusion and pulm vascular congestion. The cardiac output is at 2.6 with an index of 1.8. SVR is at 1936. PA pressures are 45/25. CVP is 18. Given a dose of Lasix 20 mg IV push x 1 today. Remains in atrial fibril lation. Urine output is in order of 40 cc an hour and the patient remains on milrinone at 0.125 mcg/kg/h. The hemoglobin is at 9.2. White cell count is at 11.9. Platelet count is 105. BUN 33 creatinine of 0.9. Sodium levels at 126. Meanwhile, the patient is on metoprolol 12.5 mg p.o. twice a day. The patient remains on aspirin and Plavix. The patient is on hydralazine 50 mg p.o. twice daily with close monitoring of the blood pressure. Ambulating., Comfortable. Chest tubes have been removed. The patient is postop day #4 following aortic valve replacement and mitral valve repair. On 05/08/2024, the patient is awake and alert and she remains on 5 L of O2 nasal cannula. Chest x-ray essentially unchanged and shows pulm vessel congestion bilateral pleural effusions. Chest tubes have been removed. Cardiac index is ranging between 1.8 and 2 and the patient was taken off the milrinone drip. For now, the patient amiodarone 4 mg p.o. twice a day, metoprolol 12.5 mg twice daily and he was given Lasix 40 mg IV push x 1. She remains on hydralazine for afterload reduction 50 mg p.o. twice a day. Blood work shows a white cell count of 15.1, hemoglobin is at 9 and a platelet count of 139. Sodium is at 128, BUN 38 with a creatinine 1.0 and potassium dose is 4.9. LFTs are slightly elevated the patient is postop day 5 following aortic valve placement and mitral valve repair. On 05/09/2024, the patient is being seen for a follow-up. The patient remains off milrinone. The cardiac index is at 1.7 and the patient remains on 2 L of oxygen by nasal cannula. She remains atrial fibrillation. She is on amiodarone 4 mg p.o. twice a day and metoprolol 25 mg p.o. twice a day and she remains on a combination of aspirin and Plavix. The patient is also on hydralazine for afterload reduction 50 mg p.o. 3 times daily. She was given Lasix 40 mg IV push x 1 today. Chest x-ray findings are essentially unchanged and the patient has small bilateral pleural effusion and pulm vessel congestion. The white cell count is at 17, hemoglobin is at 9.3 and a platelet count is 161. Sodium levels at 127, potassium level is at 5, BUN is 43 with a creatinine of 1.07. The patient did have some mild transaminitis which is improving compared to yesterday. Chest tubes are removed. No other significant events overnight. The patient is currently on 2 L of oxygen by nasal cannula. She is ambulating. Patient was seen today on 05/10/2024, patient remains in the ICU on 4 L nasal cannula, she is still requiring milrinone at 0.1 mcg/kg/min, IV fluids at 20 cc/h, patient continues to have paced rhythm, today she underwent left-sided thoracentesis and I was able to retrieve 700 cc of serosanguineous fluid from the left pleural space. Patient tolerated the procedure well, she does not seem to be in any distress, she does feel woozy intermittently, and I believe the patient may be having episodes of low blood pressure she is on 2 L nasal cannula with O2 sats of 97%, achieving about 750 mL with her incentive spirometry. On the monitor she continues to have occasional episodes of atrial fibrillation, remains on amiodarone and she is also on metoprolol 25 twice daily, Primacor is infusing at 0.1 mcg/kg/min. Liver enzymes seems to be trending up. Episodes are being closely monitored. Chest x-ray showed evidence of bilateral pleural effusions, left more so than right, hence I went ahead and performed left-sided thoracentesis on this patient. WBC count is elevated 18.2 hemoglobin 8.8 sodium is 124 potassium 4.8 BUN is 75 creatinine 1.26 liver enzymes are elevated with A ST of 435 ALT 441 and alkaline phosphatase of 180 Patient was seen today on 05/11/2024, patient is now postoperative day #8. Remains in the ICU, blood pressure seems to be marginal, denies shortness of breath denies any pain, patient is ambulating with assistance. Remains on Primacor at 0.1 mcg/kg/min, her sodium is low at 123, and there is a concern about further diuresing the patient, this is being addressed by nephrology on the case. Remains on amiodarone for atrial fibrillation, yesterday she underwent left-sided thoracentesis and 700 cc of fluid was drained. Chest x-ray today showed small tiny pleural effusions bilaterally. And there is a concern of mild pulmonary vascular congestion/pulmonary edema. O2 saturation is 90% on 4 L nasal cannula. IV fluid is at KVO. Patient was seen today on 05/12/2024, she is now postoperative day #9, remains in the ICU, sitting up in a recliner, does not seem to be in any distress, patient is on 2 L nasal cannula with O2 sats of 94%. Labs have improved, sodium is up to 133 potassium 4.6 BUN is 93 creatinine 1.09. WBC count is 12.4 hemoglobin is 9.0. Chest x-ray showed small bilateral pleural effusions not large enough to consider thoracentesis and it also showed some postoperative changes. Patient is ambulatory, she is ambulating in the hallway with assistance. Patient has been diuresed and she had significant urine output in the last 24 hours. In the meantime her sodium improved up to 133. Patient was seen today on 05/13/2024, patient is doing great, hardly any complaints, no shortness of breath no cough no wheezing, on room air, O2 saturation 96%, chest x-ray showed dramatic improvement in her pleural effusions and congestive heart failure. Chest x-ray showed small bilateral pleural effusion, not large enough for thoracentesis. WBC 12.7 hemoglobin 9.3 basic metabolic profile is normal BUN is 82 creatinine 1.18 Seen on 05/14/2024, patient continues to do well, asymptomatic, hardly any pulmonary symptoms, patient feels the best she has felt so far. Chest x-ray showed bilateral small pleural effusions and atelectasis no clear-cut evidence of pneumonia. Labs showed WBC count of 12.8 hemoglobin 9.6 electrolytes are normal BUN is 85 creatinine 1.12. Objective - Vital Signs Vital signs: Vital Signs Temp 96.4 F L 05/15/24 11:21 Pulse 84 05/15/24 11:28 Resp 16 05/15/24 11:21 BP 109/66 05/15/24 11:21 Pulse Ox 100 05/15/24 11:21 FiO2 0 05/13/24 12:11 Intake & Output 05/14/24 05/15/24 05/15/24 18:59 06:59 18:59 Intake Total 358 250 Output Total 900 1300 500 Balance -542 -1300 -250 Weight 56.4 kg 55.5 kg Intake: IV 10 Invasive Line 6 10 Oral 358 240 Output: Urine 900 1300 500 Other: Voiding Method Bedside Commode Toilet Toilet ABP, PAP, CO, CI - Last Documented Arterial Blood Pressure 106/55 Pulmonary Artery Pressure 39/22 Cardiac Output 2.4 Cardiac Index 1.5 - Exam General: Revealed 79-year-old female in no distress, on room air Head: Atraumatic normocephalic EENT: PERRLA, EOMI, nonicteric no neck masses no JVD RESPIRATORY: Diminished breath sounds at the bases with minimal crackles no rhonchi no wheezes CARDIOVASCULAR: Distant S1-S2, no S3 gallop, no murmur GASTROINTESTINAL: Abdomen is soft nontender no rebound no guarding INTEGUMENTARY: No rashes NEUROLOGIC: Alert oriented x 3 no gross focal deficit MUSKULOSKELETAL: No deformities and no limitation range of motion PSYCHIATRIC: Normal mood affect and no mental status examination - Labs CBC & Chem 7: 05/15/24 05:57 05/15/24 05:57 Labs: Abnormal Lab Results - Last 24 Hours (Table) 05/14/24 05/15/24 05/15/24 Range/Units 20:21 05:57 05:57 RBC 2.98 L (3.80-5.40) m/uL Hgb 9.8 L (11.4-16.0) gm/dL Hct 31.2 L (34.0-46.0) % MCV 104.7 H (80.0-100.0) fL RDW 22.1 H (11.5-15.5) % Lymphocytes # (Manual) 0.35 L (1.0-4.8) k/uL Nucleated RBCs 3 H (0-0) /100 WBC Macrocytosis Marked A Sodium 133 L (137-145) mmol/L Chloride 94 L (98-107) mmol/L Carbon Dioxide 31 H (22-30) mmol/L BUN 84 H (7-17) mg/dL Creatinine 1.13 H (0.52-1.04) mg/dL Glucose 109 H (74-99) mg/dL POC Glucose (mg/dL) 166 H (70-110) mg/dL AST 97 H (14-36) U/L ALT 260 H (4-34) U/L Alkaline Phosphatase 154 H (38-126) U/L Total Protein 5.6 L (6.3-8.2) g/dL Albumin 3.1 L (3.5-5.0) g/dL 05/15/24 05/15/24 Range/Units 06:00 12:02 RBC (3.80-5.40) m/uL Hgb (11.4-16.0) gm/dL Hct (34.0-46.0) % MCV (80.0-100.0) fL RDW (11.5-15.5) % Lymphocytes # (Manual) (1.0-4.8) k/uL Nucleated RBCs (0-0) /100 WBC Macrocytosis Sodium (137-145) mmol/L Chloride (98-107) mmol/L Carbon Dioxide (22-30) mmol/L BUN (7-17) mg/dL Creatinine (0.52-1.04) mg/dL Glucose (74-99) mg/dL POC Glucose (mg/dL) 134 H 133 H (70-110) mg/dL AST (14-36) U/L ALT (4-34) U/L Alkaline Phosphatase (38-126) U/L Total Protein (6.3-8.2) g/dL Albumin (3.5-5.0) g/dL Assessment and Plan Assessment: Impression:POD # 11 aortic valve replacement using a 19 mm Inspiris pericardial bioprosthesis, mitral valve repair using a posterior annuloplasty band 26 mm annuloflex, exclusion of the left atrial appendage using a 35mm AtriClip, and transesophageal echocardiogram and epiaortic scanning. Severe aortic valve regurgitation, status post aortic valve replacement Moderate mitral valve regurgitation, status post mitral valve repair Mild to moderate tricuspid valve regurgitation Mild pulmonary hypertension Postoperative blood loss anemia and thrombocytopenia, expected given cardiopulmonary bypass and hemodilution Hypervolemic hyponatremia Transaminitis, felt to be from volume overload History of chronic heart failure with reduced ejection fraction, EF 40% Hypertension Chronic kidney disease stage III Iron deficiency anemia Paroxysmal atrial fibrillation with cardioversion in 2023 on Eliquis for anticoagulation status post permanent dual-chamber pacemaker, status post ligation of the left atrial appendage Embolic stroke with full recovery in 2017 Mild lung disease, preoperative FEV1 73% of predicted Lifelong non-smoker Status post left-sided thoracentesis on 05/10/2024, 700 cc removed from the left pleural space Recommendation: Continue incentive spirometry Continue ambulation Continue diuretics Continue antibiotics as per ID on the case Continue GI DVT prophylaxis Placement is in progress. Will continue to follow Time with Patient: Less than 30
--- NOTE | 2024-05-15 12:40 | P.PN ---
Subjective Progress Note Date: 05/15/24 Principal diagnosis: POD # # 12 aortic valve replacement using a 19 mm Inspiris pericardial bioprosthesis, mitral valve repair using a posterior annuloplasty band 26 mm annuloflex, exclusion of the left atrial appendage using a 35mm AtriClip, and transesophageal echocardiogram and epiaortic scanning. This is a 79-year-old female patient being seen in the intensive care unit postop as the patient had severe aortic valve regurgitation with mitral valve regurgitation and mild pulmonary hypertension and moderate LV dysfunction and the patient was taken to the operating room and underwent aortic valve replacement and mitral valve repair. The patient is also noted to have paroxysmal A-fib and has a pacemaker in place along with history of chronic kidney disease and previous history of embolic stroke with full recovery. The patient was brought into the intensive care and intubated on the mechanical ventilator. The patient was sedated with propofol. The patient is on the mechanical ventilator, assist-control mode rate of 12, tidal volume of 400, FiO2 of 100% with a PEEP of 5. Initial blood gases postop in the intensive care unit showed a pH of 7.57 with a pCO2 of 27 and pO2 of 256. FiO2 was dropped down to 60% and follow-up gases showed a pH of 7. 36 with a pCO2 of 47 and pO2 of 153. The patient's PA pressures were 38/28. Cardiac index was 1.7. Patient has mediastinal x2.. Chest x-ray showed adequate expansion of both lungs. No evidence of any pneumothorax. The patient has a right IJ Buckner-Kip catheter in place. The patient is atrially paced at rate of 80. The patient is currently on low-dose norepinephrine and milrinone which is running at 0.2 mcg/kg/min. Urine output is adequate. Initial blood work showed a white cell count of 8 wit h a hemoglobin 9.1 and a platelet count of 66. The sodium is at 141, potassium is at 4.4, chloride is 109 with a bicarb of 25 BUN of 18 with a creatinine of 0.7. IV fluids are normal saline at rate of 50 cc an hour. No other significant events postop. On 05/04/2024, patient is being seen for a follow-up. The patient is post aortic valve replacement and mitral valve repair and the patient is postop day #2. The patient was weaned off the mechanical ventilator and the patient was extubated any major difficulties and the patient is currently on 2 L of oxygen by nasal cannula. Hemodynamically, the patient is still requiring inotropes and the patient is currently on Primacor which is running at 0.125 mcg/kg/min and the patient is off norepinephrine. Cardiac index today is at 2.3. PA pressures are 31/11. The patient remains atrially paced at a rate of 80. Urine output is noted of 30 cc an hour. Remains on amiodarone and the patient will be switched from amiodarone drip to oral amiodarone. Using incentive spirometer, pulling approximately thousand. Chest x-ray from this morning was noted and the patient has cardiomegaly and pulm vascular congestion and small bilateral pleural effusions. Mediastinal chest tubes are still in place and output is minimal at this point in time. The patient is calm and comfortable. Denies having any specific complaints. Remains on insulin drip which is running at 1 unit an hour for adequate blood sugar control. On 05/05/2024, the patient is being seen for a follow-up. The patient is currently on her intrinsic pacemaker and she is pacing at rate of 60. Her cardiac output and index are being monitored. Earlier this morning, the cardiac index was a 2.2. The patient remains on milrinone 0.125 mcg/kg/min. Urine output is adequate. Output from the chest tubes are minimal. Using incentive spirometer. She remains on 2 L of oxygen by nasal cannula. Chest x-ray from today shows small bilateral pleural effusions and cardiomegaly. Blood work from today shows a white cell count of 12.4, hemoglobin of 9.4 and platelet count of 73. BUN is 20 with a creatinine of 0.7 and sodium is at 130. The patient was started on metoprolol 12.5 mg p.o. twice a day. She is centimeter on 12 mg p.o. daily. She remains on aspirin. Rest of the medications remain unchanged. Midodrine was also added 5 mg p.o. 3 times daily. She is also on losartan 12.5 mg p.o. daily. She is currently postop day #2 following a aortic valve replacement and mitral valve repair. On today's evaluation 05/06/2024, the patient is being seen for a follow-up. The patient remains on 2 L of oxygen by nasal cannula. Chest x-ray findings remain unchanged the patient continues to have some small bilateral pleural effusions. The patient utilizing her intrinsic pacemaker. Urine output is in order of 30 to 40 cc an hour. She remains on milrinone at 0.25 mcg/kg/h and a cardiac index of 2.2. The patient is still inotrope dependent as the patient's cardiac output is dropping while the milrinone is being weaned. Meanwhile, the patient was given Lasix 40 mg IV push x 1. Awake and alert and communicating. No focal neurological deficits. Chest tubes have been removed. The white cell count of 14.1, hemoglobin is at 9.3 and a platelet count of 75. Sodium is at 126, BUN is 29 with a creatinine of 0.9. Potassium level is at 4.9. The patient is curren tly on amiodarone 200 mg p.o. daily. The patient is also on metoprolol which is currently on hold. Midodrine at 5 mg p.o. 3 times daily. Aspirin and Plavix. Hydralazine 50 mg p.o. twice daily. Oxycodone for pain control. The patient is postop day #3 following awaiting placement and mitral valve repair. On 05/07/2024, the patient is being seen for a follow-up. The patient remains on 2 L of oxygen by nasal cannula and chest x-ray still showing evidence of bilateral pleural effusion and pulm vascular congestion. The cardiac output is at 2.6 with an index of 1.8. SVR is at 1936. PA pressures are 45/25. CVP is 18. Given a dose of Lasix 20 mg IV push x 1 today. Remains in atrial fibri llation. Urine output is in order of 40 cc an hour and the patient remains on milrinone at 0.125 mcg/kg/h. The hemoglobin is at 9.2. White cell count is at 11.9. Platelet count is 105. BUN 33 creatinine of 0.9. Sodium levels at 126. Meanwhile, the patient is on metoprolol 12.5 mg p.o. twice a day. The patient remains on aspirin and Plavix. The patient is on hydralazine 50 mg p.o. twice daily with close monitoring of the blood pressure. Ambulating., Comfortable. Chest tubes have been removed. The patient is postop day #4 following aortic valve replacement and mitral valve repair. On 05/08/2024, the patient is awake and alert and she remains on 5 L of O2 nasal cannula. Chest x-ray essentially unchanged and shows pulm vessel congestion bilateral pleural effusions. Chest tubes have been removed. Cardiac index is ranging between 1.8 and 2 and the patient was taken off the milrinone drip. For now, the patient amiodarone 4 mg p.o. twice a day, metoprolol 12.5 mg twice daily and he was given Lasix 40 mg IV push x 1. She remains on hydralazine for afterload reduction 50 mg p.o. twice a day. Blood work shows a white cell count of 15.1, hemoglobin is at 9 and a platelet count of 139. Sodium is at 128, BUN 38 with a creatinine 1.0 and potassium dose is 4.9. LFTs are slightly elevated the patient is postop day 5 following aortic valve placement and mitral valve repair. On 05/09/2024, the patient is being seen for a follow-up. The patient remains off milrinone. The cardiac index is at 1.7 and the patient remains on 2 L of oxygen by nasal cannula. She remains atrial fibrillation. She is on amiodarone 4 mg p.o. twice a day and metoprolol 25 mg p.o. twice a day and she remains on a combination of aspirin and Plavix. The patient is also on hydralazine for afterload reduction 50 mg p.o. 3 times daily. She was given Lasix 40 mg IV push x 1 today. Chest x-ray findings are essentially unchanged and the patient has small bilateral pleural effusion and pulm vessel congestion. The white cell count is at 17, hemoglobin is at 9.3 and a platelet count is 161. Sodium levels at 127, potassium level is at 5, BUN is 43 with a creatinine of 1.07. The patient did have some mild transaminitis which is improving compared to yesterday. Chest tubes are removed. No other significant events overnight. The patient is currently on 2 L of oxygen by nasal cannula. She is ambulating. Patient was seen today on 05/10/2024, patient remains in the ICU on 4 L nasal cannula, she is still requiring milrinone at 0.1 mcg/kg/min, IV fluids at 20 cc/h, patient continues to have paced rhythm, today she underwent left-sided thoracentesis and I was able to retrieve 700 cc of serosanguineous fluid from the left pleural space. Patient tolerated the procedure well, she does not seem to be in any distress, she does feel woozy intermittently, and I believe the patient may be having episodes of low blood pressure she is on 2 L nasal cannula with O2 sats of 97%, achieving about 750 mL with her incentive spirometry. On the monitor she continues to have occasional episodes of atrial fibrillation, remains on amiodarone and she is also on metoprolol 25 twice daily, Primacor is infusing at 0.1 mcg/kg/min. Liver enzymes seems to be trending up. Episodes are being closely monitored. Chest x-ray showed evidence of bilateral pleural effusions, left more so than right, hence I went ahead and performed left-sided thoracentesis on this patient. WBC count is elevated 18.2 hemoglobin 8.8 sodium is 124 potassium 4.8 BUN is 75 creatinine 1.26 liver enzymes are elevated with AST of 435 ALT 441 and alkaline phosphatase of 180 Patient was seen today on 05/11/2024, patient is now postoperative day #8. Remains in the ICU, blood pressure seems to be marginal, denies shortness of breath denies any pain, patient is ambulating with assistance. Remains on Primacor at 0.1 mcg/kg/min, her sodium is low at 123, and there is a concern about further diuresing the patient, this is being addressed by nephrology on the case. Remains on amiodarone for atrial fibrillation, yesterday she underwent left-sided thoracentesis and 700 cc of fluid was drained. Chest x-ray today showed small tiny pleural effusions bilaterally. And there is a concern of mild pulmonary vascular congestion/pulmonary edema. O2 saturation is 90% on 4 L nasal cannula. IV fluid is at KVO. Patient was seen today on 05/12/2024, she is now postoperative day #9, remains in the ICU, sitting up in a recliner, does not seem to be in any distress, patient is on 2 L nasal cannula with O2 sats of 94%. Labs have improved, sodium is up to 133 potassium 4.6 BUN is 93 creatinine 1.09. WBC count is 12.4 hemoglobin is 9.0. Chest x-ray showed small bilateral pleural effusions not large enough to consider thoracentesis and it also showed some postoperative changes. Patient is ambulatory, she is ambulating in the hallway with assistance. Patient has been diuresed and she had significant urine output in the last 24 hours. In the meantime her sodium improved up to 133. Patient was seen today on 05/13/2024, patient is doing great, hardly any complaints, no shortness of breath no cough no wheezing, on room air, O2 saturation 96%, chest x-ray showed dramatic improvement in her pleural effusions and congestive heart failure. Chest x-ray showed small bilateral pleural effusion, not large enough for thoracentesis. WBC 12.7 hemoglobin 9.3 basic metabolic profile is normal BUN is 82 creatinine 1.18 Seen on 05/14/2024, patient continues to do well, asymptomatic, hardly any pulmonary symptoms, patient feels the best she has felt so far. Chest x-ray showed bilateral small pleural effusions and atelectasis no clear-cut evidence of pneumonia. Labs showed WBC count of 12.8 hemoglobin 9.6 electrolytes are normal BUN is 85 creatinine 1.12. Seen today on 05/15/2024, patient continues to do well, she is now in the stepdown unit, sitting up in the chair, does not seem to be in any distress, she does have some generalized weakness and fatigue, patient is on room air, O2 saturation 99%, achieving 750 mL on her incentive spirometry, patient remains in atrial fibrillation but rate seems to be controlled below 100. She is on amiodarone 200 twice daily, and she is also on metoprolol. Infectious disease discontinued her cefepime, and she is on Diflucan for thrush. WBC count today is 8.7 hemoglobin 9.8 electrolytes are normal BUN is 84 creatinine 1.13 not much different from yesterday. Objective - Vital Signs Vital signs: Vital Signs Temp 96.4 F L 05/15/24 11:21 Pulse 84 05/15/24 11:28 Resp 16 05/15/24 11:21 BP 109/66 05/15/24 11:21 Pulse Ox 100 05/15/24 11:21 FiO2 0 05/13/24 12:11 Intake & Output 05/14/24 05/15/24 05/15/24 18:59 06:59 18:59 Intake Total 358 250 Output Total 900 1300 500 Balance -542 -9826 -715 Weight 56.4 kg 55.5 kg Intake: IV 10 Invasive Line 6 10 Oral 358 240 Output: Urine 900 1300 500 Other: Voiding Method Bedside Commode Toilet Toilet ABP, PAP, CO, CI - Last Documented Arterial Blood Pressure 106/55 Pulmonary Artery Pressure 39/22 Cardiac Output 2.4 Cardiac Index 1.5 - Exam General: Revealed 79-year-old female in no distress, on room air Head: Atraumatic normocephalic EENT: PERRLA, EOMI, nonicteric no neck masses no JVD RESPIRATORY: Diminished breath sounds at the bases no crackles, rhonchi or wheezes CARDIOVASCULAR: Distant S1-S2, no S3 gallop, no murmur GASTROINTESTINAL: Abdomen is soft nontender no rebound no guarding INTEGUMENTARY: No rashes NEUROLOGIC: Alert oriented x 3 no gross focal deficit MUSKULOSKELETAL: No deformities and no limitation range of motion PSYCHIATRIC: Normal mood affect and no mental status examination - Labs CBC & Chem 7: 05/15/24 05:57 05/15/24 05:57 Labs: Abnormal Lab Results - Last 24 Hours (Table) 05/14/24 05/15/24 05/15/24 Range/Units 20:21 05:57 05:57 RBC 2.98 L (3.80-5.40) m/uL Hgb 9.8 L (11.4-16.0) gm/dL Hct 31.2 L (34.0-46.0) % MCV 104.7 H (80.0-100.0) fL RDW 22.1 H (11.5-15.5) % Lymphocytes # (Manual) 0.35 L (1.0-4.8) k/uL Nucleated RBCs 3 H (0-0) /100 WBC Macrocytosis Marked A Sodium 133 L (137-145) mmol/L Chloride 94 L (98-107) mmol/L Carbon Dioxide 31 H (22-30) mmol/L BUN 84 H (7-17) mg/dL Creatinine 1.13 H (0.52-1.04) mg/dL Glucose 109 H (74-99) mg/dL POC Glucose (mg/dL) 166 H (70-110) mg/dL AST 97 H (14-36) U/L ALT 260 H (4-34) U/L Alkaline Phosphatase 154 H (38-126) U/L Total Protein 5.6 L (6.3-8.2) g/dL Albumin 3.1 L (3.5-5.0) g/dL 05/15/24 05/15/24 Range/Units 06:00 12:02 RBC (3.80-5.40) m/uL Hgb (11.4-16.0) gm/dL Hct (34.0-46.0) % MCV (80.0-100.0) fL RDW (11.5-15.5) % Lymphocytes # (Manual) (1.0-4.8) k/uL Nucleated RBCs (0-0) /100 WBC Macrocytosis Sodium (137-145) mmol/L Chloride (98-107) mmol/L Carbon Dioxide (22-30) mmol/L BUN (7-17) mg/dL Creatinine (0.52-1.04) mg/dL Glucose (74-99) mg/dL POC Glucose (mg/dL) 134 H 133 H (70-110) mg/dL AST (14-36) U/L ALT (4-34) U/L Alkaline Phosphatase (38-126) U/L Total Protein (6.3-8.2) g/dL Albumin (3.5-5.0) g/dL Assessment and Plan Assessment: Impression:POD # #12 aortic valve replacement using a 19 mm Inspiris pericardial bioprosthesis, mitral valve repair using a posterior annuloplasty band 26 mm annuloflex, exclusion of the left atrial appendage using a 35mm AtriClip, and transesophageal echocardiogram and epiaortic scanning. Severe aortic valve regurgitation, status post aortic valve replacement Moderate mitral valve regurgitation, status post mitral valve repair Mild to moderate tricuspid valve regurgitation Mild pulmonary hypertension Postoperative blood loss anemia and thrombocytopenia, expected given cardiop ulmonary bypass and hemodilution Hypervolemic hyponatremia Transaminitis, felt to be from volume overload History of chronic heart failure with reduced ejection fraction, EF 40% Hypertension Chronic kidney disease stage III Iron deficiency anemia Paroxysmal atrial fibrillation with cardioversion in 2023 on Eliquis for anticoagulation status post permanent dual-chamber pacemaker, status post ligati on of the left atrial appendage Embolic stroke with full recovery in 2016 Mild lung disease, preoperative FEV1 73% of predicted Lifelong non-smoker Status post left-sided thoracentesis on 05/10/2024, 700 cc removed from the left pleural space Recommendation: Continue incentive spirometry Continue ambulation Continue diuretics Patient is now off cefepime Continue GI DVT prophylaxis Placement is in progress. Will continue to follow Time with Patient: Less than 30
--- NOTE | 2024-05-15 14:48 | P.PN ---
Subjective Progress Note Date: 05/15/24 Principal diagnosis: Reason for follow-up is leukocytosis/UTI Patient is a 79-year-old female with a past medical history significant for Atrial Fibrillation, Heart Failure, CVA/TIA, Eye Disorder, Hearing Disorder / Deafness, Hyperlipidemia, Hypertension, Osteoarthritis (OA), Renal Disease, Skin Disorder electively admitted to the hospital after the patient did have aortic valve replacement mitral valve repair, did have urinary symptoms of burning positive UA concerning for UTI elevated white count prompted this consultation. On today's evaluation that is 05/15/2024, patient did not have any fever and denies any chills, patient is breathing comfortably on room air, patient with no chest pain or cough patient did not have any abdominal pain nausea vomiting or any loose stools per the complain of constipation. Patient white normalized to 8.7 creatinine is 1.13 Objective - Vital Signs Vital signs: Vital Signs Temp 96.4 F L 05/15/24 11:21 Pulse 84 05/15/24 11:28 Resp 16 05/15/24 11:21 BP 109/66 05/15/24 11:21 Pulse Ox 100 05/15/24 11:21 FiO2 0 05/13/24 12:11 Intake & Output 05/14/24 05/15/24 05/15/24 18:59 06:59 18:59 Intake Total 358 250 Output Total 900 1300 500 Balance -542 -1300 -250 Weight 56.4 kg 55.5 kg Intake: IV 10 Invasive Line 6 10 Oral 358 240 Output: Urine 900 1300 500 Other: Voiding Method Bedside Commode Toilet Toilet ABP, PAP, CO, CI - Last Documented Arterial Blood Pressure 106/55 Pulmonary Artery Pressure 39/22 Cardiac Output 2.4 Cardiac Index 1.5 - Exam GENERAL DESCRIPTION: An elderly In the chair in no distress RESPIRATORY SYSTEM: Unlabored breathing , decreased breath sounds at bases HEART: S1 S2 regular rate and rhythm , ABDOMEN: Soft , no tenderness EXTREMITIES: No edema feet - Labs CBC & Chem 7: 05/15/24 05:57 05/15/24 05:57 Labs: Abnormal Lab Results - Last 24 Hours (Table) 05/14/24 05/15/24 05/15/24 Range/Units 20:21 05:57 05:57 RBC 2.98 L (3.80-5.40) m/uL Hgb 9.8 L (11.4-16.0) gm/dL Hct 31.2 L (34.0-46.0) % MCV 104.7 H (80.0-100.0) fL RDW 22.1 H (11.5-15.5) % Lymphocytes # (Manual) 0.35 L (1.0-4.8) k/uL Nucleated RBCs 3 H (0-0) /100 WBC Macrocytosis Marked A Sodium 133 L (137-145) mmol/L Chloride 94 L (98-107) mmol/L Carbon Dioxide 31 H (22-30) mmol/L BUN 84 H (7-17) mg/dL Creatinine 1.13 H (0.52-1.04) mg/dL Glucose 109 H (74-99) mg/dL POC Glucose (mg/dL) 166 H (70-110) mg/dL AST 97 H (14-36) U/L ALT 260 H (4-34) U/L Alkaline Phosphatase 154 H (38-126) U/L Total Protein 5.6 L (6.3-8.2) g/dL Albumin 3.1 L (3.5-5.0) g/dL 05/15/24 05/15/24 Range/Units 06:00 12:02 RBC (3.80-5.40) m/uL Hgb (11.4-16.0) gm/dL Hct (34.0-46.0) % MCV (80.0-100.0) fL RDW (11.5-15.5) % Lymphocytes # (Manual) (1.0-4.8) k/uL Nucleated RBCs (0-0) /100 WBC Macrocytosis Sodium (137-145) mmol/L Chloride (98-107) mmol/L Carbon Dioxide (22-30) mmol/L BUN (7-17) mg/dL Creatinine (0.52-1.04) mg/dL Glucose (74-99) mg/dL POC Glucose (mg/dL) 134 H 133 H (70-110) mg/dL AST (14-36) U/L ALT (4-34) U/L Alkaline Phosphatase (38-126) U/L Total Protein (6.3-8.2) g/dL Albumin (3.5-5.0) g/dL Assessment and Plan (1) Leukocytosis Current Visit: Yes Status: Acute Code(s): D72.829 - ELEVATED WHITE BLOOD CELL COUNT, UNSPECIFIED SNOMED Code(s): 050310163 (2) UTI (urinary tract infection) Current Visit: Yes Status: Acute Code(s): N39.0 - URINARY TRACT INFECTION, SITE NOT SPECIFIED SNOMED Code(s): 46828115 (3) Thrush Current Visit: Yes Status: Acute Code(s): B37.0 - CANDIDAL STOMATITIS SNOMED Code(s): 54785370 Plan: 1patient with elevated white count in this patient electively admitted to hospital and is status post aortic valve replacement and mitral valve repair she did have urinary catheter postsurgery which has been discontinued yesterday now with cloudy urine difficulty urination ID clinic suspicious for urinary source to be responsible for this elevated white count and need to be treated aggressively with recent cardiac procedure 2-patient did have a positive UA blood however urine culture negative cefepime was discontinued 3-patient is afebrile and white count has normalized continue with nystatin swish and swallow and Diflucan short course Dictation was produced using [employer] dictation software. please excuse any grammatical, word or spelling errors. Time with Patient: Less than 30
[2024-05-15 16:46] LABS: Glucose,Whole Blood 125 mg/dL (70-110)
[2024-05-15] MEDS: FUROSEMIDE 40 MG TAB PO SCH (17:13)
[2024-05-15 19:45] LABS: Glucose,Whole Blood 132 mg/dL (70-110)
[2024-05-16 05:59] LABS: Glucose,Whole Blood 120 mg/dL (70-110)
--- NOTE | 2024-05-16 06:57 | XR ---
EXAMINATION TYPE: XR chest 1V portable DATE OF EXAM: 05/16/2024 CLINICAL INDICATION: Female, 79 years old with history of Postop cardiac surgery, progress study. TECHNIQUE: Single AP portable semi-upright view of the chest is obtained. COMPARISON: Chest x-ray from one day earlier and older study FINDINGS: Overlying sternal wires are redemonstrated. Left atrial appendage clip and metallic aortic valve are redemonstrated. Persistent cardiomegaly with dual lead pacemaker and small 2 moderate-sized left greater than right p leural effusions. Improved central vascular congestion . Bibasilar opacities redemonstrated. The osse ous structures are intact. IMPRESSION: Findings consistent with CHF exacerbation/fluid overload state. Pleural effusion sizes ar e stable. Central vascular congestion is improved. [facility], , 05/16/2024 6:55 AM
[2024-05-16 07:05] LABS: Anisocytosis Moderate; Basophils % (A) 0 %; Eosinophils # (A) 0.1 k/uL (0-0.7); Eosinophils % (A) 1 %; HCT 32.5 % (34.0-46.0); Hypochromasia Marked; Lymphocytes # (A) 0.7 k/uL (1.0-4.8); Lymphocytes % (A) 10 %; MCH 32.4 pg (25.0-35.0); MCHC 30.8 g/dL (31.0-37.0); MCV 105.5 fL (80.0-100.0); Macrocytosis Marked; Mean Platelet Volume 8.9; Monocytes # (A) 0.4 k/uL (0-1.0); Monocytes % (A) 6 %; Neutrophils % (A) 82 %; Platelet Count 174 k/uL (150-450); Poikilocytosis Slight; RBC 3.09 m/uL (3.80-5.40); RDW 21.3 % (11.5-15.5); WBC 7.3 k/uL (3.8-10.6)
[2024-05-16 07:20] LABS: ALT 207 U/L (4-34); AST 70 U/L (14-36); African American GFR (CKD) 56 (>60 ml/min/1.73 sqM); Albumin 3.2 g/dL (3.5-5.0); Alkaline Phosphatase 145 U/L (38-126); Anion Gap 7 mmol/L; Blood Urea Nitrogen 80 mg/dL (7-17); Calcium 8.8 mg/dL (8.4-10.2); Carbon Dioxide 32 mmol/L (22-30); Chloride 93 mmol/L (98-107); Glucose 101 mg/dL (74-99); Magnesium 2.3 mg/dL (1.6-2.3); Non-African American GFR(CKD) 49 (>60 ml/min/1.73 sqM); Potassium 4.5 mmol/L (3.5-5.1); Sodium 132 mmol/L (137-145); Total Bilirubin 0.9 mg/dL (0.2-1.3); Total Protein 5.7 g/dL (6.3-8.2)
--- NOTE | 2024-05-16 09:25 | P.PN ---
Subjective Progress Note Date: 05/16/24 Principal diagnosis: Severe aortic valve regurgitation, moderate mitral valve regurgitation, mild to moderate tricuspid valve regurgitation, and mild pulmonary hypertension. Medic al history history for moderate left ventricular dysfunction, chronic heart failure with reduced ejection fraction, hypertension, chronic kidney disease stage III, iron deficiency anemia, paroxysmal atrial fibrillation with cardioversion in 2023 on Eliquis for anticoagulation status post permanent dual- chamber pacemaker, embolic stroke with full recovery, hard of hearing, osteoarthritis, mild lung disease, COVID in 2021, and lifelong non-smoker. POD #13 aortic valve replacement using a 19 mm Inspiris pericardial bioprosthesis, mitral valve repair using a posterior annuloplasty band 26 mm annuloflex, exclusion of the left atrial appendage using a 35mm AtriClip, and transesophageal echocardiogram and epiaortic scanning. Postoperative blood loss anemia and thrombocytopenia, expected given c ardiopulmonary bypass and hemodilution. Hypervolemic hyponatremia. Transaminitis, felt to be from volume overload, AST/ALT trending down. Leukocytosis, unknown etiology, urine culture negative. The patient was seen and examined in follow-up today May 16, 2024 at her bedside on the third floor cardiac stepdown unit. She was currently sitting up to the bedside chair, is tolerating her breakfast, is awake, alert, oriented x 3 and is in no acute apparent distress. She denies any complaints of pain or shortness of breath at this time. She reports she has been up ambulating in the cardiac stepdown unit hallway with standby assistance from nursing and therapy staff and tolerating well, she also had a shower yesterday and tolerated well. Oxygen saturations are 96% on room air and she is achieving 1000 mL on her incentive spirometry. Bedside telemetry is showing atrial fibrillation heart rate 103 bpm. She remains on amiodarone 200 mg p.o. twice daily, and metoprolol tartrate 25 mg p.o. twice daily. She is also on Eliquis 5 mg p.o. twice daily. Furosemide has been transitioned over to oral and is being managed by nephrology. Laboratory and chest x-ray results reviewed. Objective - Vital Signs Vital signs: Vital Signs Temp 97.9 F 05/16/24 07:40 Pulse 107 H 05/16/24 08:30 Resp 14 05/16/24 07:40 BP 108/68 05/16/24 07:40 Pulse Ox 97 05/16/24 08:24 FiO2 0 05/13/24 12:11 Intake & Output 05/15/24 05/16/24 05/16/24 18:59 06:59 18:59 Intake Total 490 240 10 Output Total 500 600 Balance -10 -360 10 Weight 55.2 kg Intake: IV 10 10 Invasive Line 6 10 10 Oral 480 240 Output: Urine 500 600 Other: Voiding Method Toilet Toilet Toilet # Voids 2 # Bowel Movements 1 1 ABP, PAP, CO, CI - Last Documented Arterial Blood Pressure 106/55 Pulmonary Artery Pressure 39/22 Cardiac Output 2.4 Cardiac Index 1.5 - Exam CONSTITUTIONAL: Appears comfortable, cooperative, no acute distress RESPIRATORY: Lungs sounds diminished in the bases bilaterally. Respirations sy mmetrical, nonlabored. Currently on room air with oxygen saturation 99%. Able to achieve 500-750 mL on her incentive spirometry. Strong cough. CARDIOVASCULAR: S1, S2 present. Irregular rate and rhythm, atrial fibrillation on remote telemetry, heart rate 103 bpm. Sternum stable. Palpable peripheral pulses bilaterally. Trace bilateral upper extremity and thigh edema present. No calf pain or tenderness noted. Heart hugger in place with patient demonstrating appropriate use. Antiembolism stockings, SCDs present. GASTROINTESTINAL: Abdomen soft, nontender, nondistended. Active bowel sounds present 4 quadrants. Tolerating diet. Bowel movement 05/15/24 GENITOURINARY: Continues to void. Urine output 600 mL in the last 8 hours. INTEGUMENTARY: Skin is warm and dry with no clubbing or cyanosis present. Midline sternal chest incision well approximated and covered with dry intact d ressing. NEUROLOGIC: Cranial nerves II through XII intact. MUSKULOSKELETAL: Able to move all extremities, strength equal bilaterally, gait normal. PSYCHIATRIC: Alert and oriented to person place and time, appropriate affect, intact judgment and insight. - Allied health notes Allied health notes reviewed: nursing - Labs CBC & Chem 7: 05/16/24 06:05 05/16/24 06:05 Labs: Abnormal Lab Results - Last 24 Hours (Table) 05/15/24 05/15/24 05/15/24 Range/Units 12:02 16:45 19:45 RBC (3.80-5.40) m/uL Hgb (11.4-16.0) gm/dL Hct (34.0-46.0) % MCV (80.0-100.0) fL MCHC (31.0-37.0) g/dL RDW (11.5-15.5) % Lymphocytes # (1.0-4.8) k/uL Macrocytosis Sodium (137-145) mmol/L Chloride (98-107) mmol/L Carbon Dioxide (22-30) mmol/L BUN (7-17) mg/dL Creatinine (0.52-1.04) mg/dL Glucose (74-99) mg/dL POC Glucose (mg/dL) 133 H 125 H 132 H (70-110) mg/dL AST (14-36) U/L ALT (4-34) U/L Alkaline Phosphatase (38-126) U/L Total Protein (6.3-8.2) g/dL Albumin (3.5-5.0) g/dL 05/16/24 05/16/24 05/16/24 Range/Units 05:56 06:05 06:05 RBC 3.09 L (3.80-5.40) m/uL Hgb 10.0 L (11.4-16.0) gm/dL Hct 32.5 L (34.0-46.0) % MCV 105.5 H (80.0-100.0) fL MCHC 30.8 L (31.0-37.0) g/dL RDW 21.3 H (11.5-15.5) % Lymphocytes # 0.7 L (1.0-4.8) k/uL Macrocytosis Marked A Sodium 132 L (137-145) mmol/L Chloride 93 L (98-107) mmol/L Carbon Dioxide 32 H (22-30) mmol/L BUN 80 H (7-17) mg/dL Creatinine 1.09 H (0.52-1.04) mg/dL Glucose 101 H (74-99) mg/dL POC Glucose (mg/dL) 120 H (70-110) mg/dL AST 70 H (14-36) U/L ALT 207 H (4-34) U/L Alkaline Phosphatase 145 H (38-126) U/L Total Protein 5.7 L (6.3-8.2) g/dL Albumin 3.2 L (3.5-5.0) g/dL Microbiology - Last 24 Hours (Table) 05/10/24 13:57 Blood Culture - Final Blood - Imaging and Cardiology Chest x-ray: report reviewed, image reviewed Assessment and Plan Assessment: Severe aortic valve regurgitation, status post aortic valve replacement Moderate mitral valve regurgitation, status post mitral valve repair Mild to moderate tricuspid valve regurgitation Mild pulmonary hypertension Postoperative blood loss anemia and thrombocytopenia, expected given car diopulmonary bypass and hemodilution Hypervolemic hyponatremia Transaminitis, felt to be from volume overload Leukocytosis, felt to be from urinary tract infection Medical debility Oropharyngeal thrush History of chronic heart failure with reduced ejection fraction, EF 40% Hypertension Chronic kidney disease stage III Iron deficiency anemia Paroxysmal atrial fibrillation with cardioversion in 2023 on Eliquis for anticoagulation status post permanent dual-chamber pacemaker, status post ligation of the left atrial appendage Embolic stroke with full recovery in 2016 Mild lung disease, preoperative FEV1 73% of predicted COVID in 2021 Lifelong non-smoker Plan: Continue to maximize medical therapy with low dose aspirin, Plavix and beta- pari. Will increase beta-pari therapy when tolerated. Metoprolol to tartrate was increased to 25 mg p.o. twice daily on 05/14/2024. Continue hydralazine for afterload reduction with hold parameters. Continue oral amiodarone for atrial fibrillation prophylaxis. Continue Eliquis 5 mg p.o. twice daily for anticoagulation. No statin as the patient is sensitive to statins, no hyperlipidemia present Encourage incentive spirometry use 10 times every hour while awake. Bronchodilators per pulmonology. Will monitor daily labs and chest x-rays, electrolyte replacement per protocol. Diuresis per nephrology. Needs to be off IV Lasix to be transferred to inpatient rehab. Increase activity, ambulate as tolerated. PT/OT/cardiac rehab following. GI/DVT prophylaxis. Pain control per current medication regimen. No Toradol due to the patient's chronic kidney disease. Insulin management per internal medicine, preoperative hemoglobin A1c 6.1%. May bladder scan and straight cath for greater than 300 mL residual. Continue to monitor record strict accurate intake and output. Lasix has been transitioned to 40 mg p.o. twice daily and managed by nephrology. Continue Diflucan 100 mg p.o. daily x 7 days for thrush. WBC Count 7.3 today. She remains afebrile. PM&R physician consulted for IPR at discharge, authorization for transfer pending. More recommendations to follow based on patient's clinical course. Time with Patient: Greater than 30
--- NOTE | 2024-05-16 10:12 | P.PN ---
Subjective This is a pleasant 79year-old patient, follows with Dr. Thayer. 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 Kimbrough macular degeneration. Patient yesterday underwent arctic valve replacement with a bioprosthesis, mitral valve repair with annuloplasty, exclusion of left atrial appendage using a clip,. Today patient is up in a chair. Extubated. Drips include IV insulin, milrinone, amiodarone. Plan to being switched over to p.o. Paced rhythm. Has to chest tubes mediastinal. Clear liquid diet. Doing about 1000 cc on in centive spirometry. May 05: Sitting up in a recliner. Slight shortness of breath. On IV milrinon e and IV heparin drip. Paced rhythm. [address] Eating fair. Been taken off insulin drip. May 06: Saw this afternoon. Up in a recliner. Did transfer from the bed to the chair. Some shortness of breath. A-fib. Given further IV loading IV amiodarone. Remains on IV milrinone. Chest tubes are out. Palacios catheter in place. Eating fair. Sodium a bit worse. Received IV Lasix and albumin. May 07: Up in a recliner. . Palacios catheter remains in place. Tired. Eating fair. Blood pressure remains lower side.-IV milrinone. On hydralazine for afterload reduction. 5 L nasal cannula. Received IV Lasix 20 mg today. Remains in atrial fibrillation. Chest x-ray shows pleural effusion/vascular congestion. May 08: ICU. Up in a recliner. Some shortness of breath. Palacios catheter. Patient switched to oral amiodarone. On 4 L nasal cannula. Eating some. Had a bowel movement. Patient been taken off IV milrinone. Remains in A-fib. Tired. LFTs have bumped up.-Note patient is on amiodarone. To switch to p.o. Could be ischemic hepatitis component. [IV amiodarone discontinued yesterday] May 09: ICU. In a recliner. Remains a bit short of breath. Tired. Eating some. Has been in and out of A-fib with paced rhythm. Remains of IV milrinone. On 4.5 L nasal cannula. Chest x-ray film personally reviewed by me-some scattered infiltrates. Urea added by nephrology for hyponatremia. May 10: ICU. Up in the recliner. Remains tired a bit short of breath. Had a BM yesterday. Patient getting IV albumin. Back on IV milrinone. Since patient is in and out of atrial fibrillation. Further increase in LFTs. Sodium down to 124. 1 dose of tolvaptan given per nephrology. Did text down from cardiothoracic team. Amiodarone should be held given LFTs much elevated. Probable UTI-IV cefepime started by ID. Hydralazine held today May 11: ICU. Up in a recliner. Yesterday underwent left-sided thoracentesis 100 cc removed. Patient dose of amiodarone is being cut back from tomorrow to 200 mg twice daily. Remains on IV cefepime. Also on IV milrinone for hypertension. Also remains on urea twice daily for hyponatremia. Also dose of hydralazine has been cut back. To 25 mg twice daily. Patient been off for urinary catheter at least for 24 hours. Patient did ambulate in the hallway with the staff. Some shortness of breath May 12: ICU. Up in a recliner. Breathing better. 2 L nasal cannula this afternoon. Eating fair. On amiodarone 200 mg twice daily. Remains on IV cefepime. Urea. Is being bothered by restless leg syndrome. Mirapex at night has been added. Remains on DuoNeb. Patient walked 3 feet with physical therapy as documented. IV Lasix. Good urine output. May 21: ICU. Patient seen this morning. Up in a chair. Breathing actually better. Off oxygen on room air. Remains on IV cefepime. Urine culture has be en finalized negative. Blood cultures negative growth at 72 hours. Patient will be moved out of the ICU. A-fib. 05/15 Patient sitting up in bed, she walked in the hallway with the help of her family. She got exertional tiredness. She states she still gets some exertional dyspnea and she has to stop but she denies chest pain. And she feels constipated and she wants something more for laxatives. Patient hemodynamically stable Labs check hemoglobin is 9.8 and creatinine 1.23. Sugar controlled 05/16 patient feels improvement Dyspnea is better today No chest pain She was walking in the hallway today as well like yesterday but she was feeling better as above. No other new complaint Objective - Vital Signs Vital signs: Vital Signs Temp 97.9 F 05/16/24 07:40 Pulse 107 H 05/16/24 08:30 Resp 14 05/16/24 07:40 BP 108/68 05/16/24 07:40 Pulse Ox 97 05/16/24 08:24 FiO2 0 05/13/24 12:11 Intake & Output 05/15/24 05/16/24 05/16/24 18:59 06:59 18:59 Intake Total 490 240 10 Output Total 500 600 Balance -10 -360 10 Weight 55.2 kg Intake: IV 10 10 Invasive Line 6 10 10 Oral 480 240 Output: Urine 500 600 Other: Voiding Method Toilet Toilet Toilet # Voids 2 # Bowel Movements 1 1 ABP, PAP, CO, CI - Last Documented Arterial Blood Pressure 106/55 Pulmonary Artery Pressure 39/22 Cardiac Output 2.4 Cardiac Index 1.5 - Exam GENERAL: The patient is alert and oriented x3, not in any acute distress. Well developed, well nourished. HEENT: Pupils are round and equally reacting to light. EOMI. No scleral icterus. No conjunctival pallor. Normocephalic, atraumatic. No pharyngeal erythema. No thyromegaly. CARDIOVASCULAR: S1 and S2 present. No murmurs, rubs, or gallops. PULMONARY: Chest is clear to auscultation, no wheezing , no crackles. ABDOMEN: Soft, nontender, nondistended, normoactive bowel sounds. No palpable organomegaly. MUSCULOSKELETAL: No joint swelling or deformity. EXTREMITIES: No cyanosis, clubbing, or pedal edema. NEUROLOGICAL: Gross neurological examination did not reveal any focal deficits. SKIN: No rashes. no petechiae. - Labs CBC & Chem 7: 05/16/24 06:05 05/16/24 06:05 Labs: Abnormal Lab Results - Last 24 Hours (Table) 05/15/24 05/15/24 05/15/24 Range/Units 12:02 16:45 19:45 RBC (3.80-5.40) m/uL Hgb (11.4-16.0) gm/dL Hct (34.0-46.0) % MCV (80.0-100.0) fL MCHC (31.0-37.0) g/dL RDW (11.5-15.5) % Lymphocytes # (1.0-4.8) k/uL Macrocytosis Sodium (137-145) mmol/L Chloride (98-107) mmol/L Carbon Dioxide (22-30) mmol/L BUN (7-17) mg/dL Creatinine (0.52-1.04) mg/dL Glucose (74-99) mg/dL POC Glucose (mg/dL) 133 H 125 H 132 H (70-110) mg/dL AST (14-36) U/L ALT (4-34) U/L Alkaline Phosphatase (38-126) U/L Total Protein (6.3-8.2) g/dL Albumin (3.5-5.0) g/dL 05/16/24 05/16/24 05/16/24 Range/Units 05:56 06:05 06:05 RBC 3.09 L (3.80-5.40) m/uL Hgb 10.0 L (11.4-16.0) gm/dL Hct 32.5 L (34.0-46.0) % MCV 105.5 H (80.0-100.0) fL MCHC 30.8 L (31.0-37.0) g/dL RDW 21.3 H (11.5-15.5) % Lymphocytes # 0.7 L (1.0-4.8) k/uL Macrocytosis Marked A Sodium 132 L (137-145) mmol/L Chloride 93 L (98-107) mmol/L Carbon Dioxide 32 H (22-30) mmol/L BUN 80 H (7-17) mg/dL Creatinine 1.09 H (0.52-1.04) mg/dL Glucose 101 H (74-99) mg/dL POC Glucose (mg/dL) 120 H (70-110) mg/dL AST 70 H (14-36) U/L ALT 207 H (4-34) U/L Alkaline Phosphatase 145 H (38-126) U/L Total Protein 5.7 L (6.3-8.2) g/dL Albumin 3.2 L (3.5-5.0) g/dL Microbiology - Last 24 Hours (Table) 05/10/24 13:57 Blood Culture - Final Blood Assessment and Plan Assessment: Assessment plan: -aorctic valve replacement with a bioprosthesis, mitral valve repair with annuloplasty, exclusion of left atrial appendage using a clip, on May 03, [address] Hammond [Prior moderate mitral regurgitation, severe tricuspid regurgitation, severe aortic regurgitation] -Persistent atrial fibrillation., With patient being in and out of atrial fibrillation Lopressor. Cordarone -Acute hepatitis: Possibly combination of hypotension and being on amiodarone.: Plateaued off Amiodarone dose has been cut back by cardiothoracic team. Follow LFTs -Acute hypoxic respiratory failure secondary to pulmonary edema/pleural effusion:: Improved Patient now is on room air -Acute postprocedure blood loss anemia expected from surgery Follow H&H -Dilutional thrombocytopenia. Preoperative platelets 210: Resolved -Left pleural effusion, possibly secondary to CHF Pulmonary following. 700 cc left thoracentesis done May 10 -Hyperkalemia: Corrected Calcium gluconate, insulin given. -Hyponatremia likely hypervolemic, much improved Follow fluid status closely. Encourage oral intake. Tolvaptan given. On urea -Hypoalbuminemia, multifactorial: Received IV albumin -Acute UTI with cystitis secondary to Palacios catheter IV cefepime -Hard of hearing -Acute on chronic congestive heart failure exacerbation from mild systolic dysfunction nonischemic cardiomyopathy EF 45 to 50%: Improving IV Lasix 40 mg every 12 -Severe secondary pulmonary hypertension -Hypotension, cardiac: Better On IV milrinone-discontinue -Primary osteoarthritis Tylenol as needed -Colonic diverticulosis, asymptomatic -Chronic kidney disease stage IIIa, baseline creatinine from 1 2-1.3, secondary nephrosclerosis Follows with Dr. Kimbrough outpatient -Pacemaker 2017, for sick sinus syndrome -Full code Continues to improve. Off oxygen.
[2024-05-16 11:25] LABS: Glucose,Whole Blood 113 mg/dL (70-110)
--- NOTE | 2024-05-16 11:28 | P.PN ---
Subjective Patient is seen for follow-up for hyponatremia. Currently being diuresed for severe volume overload Overall feels better. Serum sodium at 132 and creatinine has improved to 1.0. Volume status has improved. Urea was discontinued yesterday Objective - Vital Signs Vital signs: Vital Signs Temp 97.9 F 05/16/24 07:40 Pulse 107 H 05/16/24 08:30 Resp 14 05/16/24 07:40 BP 108/68 05/16/24 07:40 Pulse Ox 97 05/16/24 08:24 FiO2 0 05/13/24 12:11 Intake & Output 05/15/24 05/16/24 05/16/24 18:59 06:59 18:59 Intake Total 490 240 10 Output Total 500 600 Balance -10 -360 10 Weight 55.2 kg Intake: IV 10 10 Invasive Line 6 10 10 Oral 480 240 Output: Urine 500 600 Other: Voiding Method Toilet Toilet Toilet # Voids 2 # Bowel Movements 1 1 ABP, PAP, CO, CI - Last Documented Arterial Blood Pressure 106/55 Pulmonary Artery Pressure 39/22 Cardiac Output 2.4 Cardiac Index 1.5 - Exam Patient is awake, comfortable, no acute distress. Examination of the heart S1 and S2 Examination of the lungs bilateral breath sounds are heard Abdomen is soft Examination of lower extremities shows edema 1+ bilateral, improved REGULATOR OPERATOR exam grossly intact - Labs CBC & Chem 7: 05/16/24 06:05 05/16/24 06:05 Labs: Abnormal Lab Results - Last 24 Hours (Table) 05/15/24 05/15/24 05/15/24 Range/Units 12:02 16:45 19:45 RBC (3.80-5.40) m/uL Hgb (11.4-16.0) gm/dL Hct (34.0-46.0) % MCV (80.0-100.0) fL MCHC (31.0-37.0) g/dL RDW (11.5-15.5) % Lymphocytes # (1.0-4.8) k/uL Macrocytosis Sodium (137-145) mmol/L Chloride (98-107) mmol/L Carbon Dioxide (22-30) mmol/L BUN (7-17) mg/dL Creatinine (0.52-1.04) mg/dL Glucose (74-99) mg/dL POC Glucose (mg/dL) 133 H 125 H 132 H (70-110) mg/dL AST (14-36) U/L ALT (4-34) U/L Alkaline Phosphatase (38-126) U/L Total Protein (6.3-8.2) g/dL Albumin (3.5-5.0) g/dL 05/16/24 05/16/24 05/16/24 Range/Units 05:56 06:05 06:05 RBC 3.09 L (3.80-5.40) m/uL Hgb 10.0 L (11.4-16.0) gm/dL Hct 32.5 L (34.0-46.0) % MCV 105.5 H (80.0-100.0) fL MCHC 30.8 L (31.0-37.0) g/dL RDW 21.3 H (11.5-15.5) % Lymphocytes # 0.7 L (1.0-4.8) k/uL Macrocytosis Marked A Sodium 132 L (137-145) mmol/L Chloride 93 L (98-107) mmol/L Carbon Dioxide 32 H (22-30) mmol/L BUN 80 H (7-17) mg/dL Creatinine 1.09 H (0.52-1.04) mg/dL Glucose 101 H (74-99) mg/dL POC Glucose (mg/dL) 120 H (70-110) mg/dL AST 70 H (14-36) U/L ALT 207 H (4-34) U/L Alkaline Phosphatase 145 H (38-126) U/L Total Protein 5.7 L (6.3-8.2) g/dL Albumin 3.2 L (3.5-5.0) g/dL 05/16/24 Range/Units 11:24 RBC (3.80-5.40) m/uL Hgb (11.4-16.0) gm/dL Hct (34.0-46.0) % MCV (80.0-100.0) fL MCHC (31.0-37.0) g/dL RDW (11.5-15.5) % Lymphocytes # (1.0-4.8) k/uL Macrocytosis Sodium (137-145) mmol/L Chloride (98-107) mmol/L Carbon Dioxide (22-30) mmol/L BUN (7-17) mg/dL Creatinine (0.52-1.04) mg/dL Glucose (74-99) mg/dL POC Glucose (mg/dL) 113 H (70-110) mg/dL AST (14-36) U/L ALT (4-34) U/L Alkaline Phosphatase (38-126) U/L Total Protein (6.3-8.2) g/dL Albumin (3.5-5.0) g/dL Microbiology - Last 24 Hours (Table) 05/10/24 13:57 Blood Culture - Final Blood Assessment and Plan Assessment: 1. Chronic kidney disease stage IIIa with baseline creatinine 1-1.3 secondary to nephrosclerosis. BUN disproportionately elevated from urea tablets 2. Status post aortic valve replacement and mitral valve repair May 03, 2024. On Primacor. 3. Mild hyperkalemia secondary to underlying CKD and use of KHADIJAH inhibitor. Resolved. 4. Anemia. Iron deficiency noted. Status post IV iron completed May 08, 2024. 5. Volume overload, slowly improving with diuresis 6. Hypervolemic hyponatremia. Urine sodium less than 20 and urine osmolality 418. TSH normal. Patient was maintained on milrinone which is based in dextrose, contributing to hyponatremia, now discontinued 7. Acute kidney injury, ATN, nonoliguric secondary to hypotension, improved Plan: Continue with oral Lasix Decrease Lasix to once a day Continue off of urea Repeat labs in a.m.
--- NOTE | 2024-05-16 13:18 | P.PN ---
Subjective Progress Note Date: 05/16/24 Principal diagnosis: POD # 13 aortic valve replacement using a 19 mm Inspiris pericardial bioprosthesis, mitral valve repair using a posterior annuloplasty band 26 mm annuloflex, exclusion of the left atrial appendage using a 35mm AtriClip, and transesophageal echocardiogram and epiaortic scanning. This is a 79-year-old female patient being seen in the intensive care unit p ostop as the patient had severe aortic valve regurgitation with mitral valve regurgitation and mild pulmonary hypertension and moderate LV dysfunction and the patient was taken to the operating room and underwent aortic valve replacement and mitral valve repair. The patient is also noted to have p aroxysmal A-fib and has a pacemaker in place along with history of chronic kidney disease and previous history of embolic stroke with full recovery. The patient was brought into the intensive care and intubated on the mechanical ventilator. The patient was sedated with propofol. The patient is on the mechanical ventilator, assist-control mode rate of 12, tidal volume of 400, FiO2 of 100% with a PEEP of 5. Initial blood gases postop in the intensive care unit showed a pH of 7.57 with a pCO2 of 27 and pO2 of 256. FiO2 was dropped down to 60% and follow-up gases showed a pH of 7. 36 with a pCO2 of 47 and pO2 of 153. The patient's PA pressures were 38/28. Cardiac index was 1.7. Patient has mediastinal x2.. Chest x-ray showed adequate expansion of both lungs. No evidence of any pneumothorax. The patient has a right IJ [place]-Kip catheter in place. The patient is atrially paced at rate of 80. The patient is currently on low-dose norepinephrine and milrinone which is running at 0.2 mcg/kg/min. Urine output is adequate. Initial blood work showed a white cell count of 8 with a hemoglobin 9.1 and a platelet count of 66. The sodium is at 141, potassium is at 4.4, chloride is 109 with a bicarb of 25 BUN of 18 with a creatinine of 0.7. IV fluids are normal saline at rate of 50 cc an hour. No other significant events postop. On 05/04/2024, patient is being seen for a follow-up. The patient is post aortic valve replacement and mitral valve repair and the patient is postop day #2. The patient was weaned off the mechanical ventilator and the patient was extubated any major difficulties and the patient is currently on 2 L of oxygen by nasal cannula. Hemodynamically, the patient is still requiring inotropes and the patient is currently on Primacor which is running at 0.125 mcg/kg/min and the patient is off norepinephrine. Cardiac index today is at 2.3. PA pressures are 31/11. The patient remains atrially paced at a rate of 80. Urine output is noted of 30 cc an hour. Remains on amiodarone and the patient will be switched from amiodarone drip to oral amiodarone. Using incentive spirometer, pulling approximately thousand. Chest x-ray from this morning was noted and the patient has cardiomegaly and pulm vascular congestion and small bilateral pleural ef fusions. Mediastinal chest tubes are still in place and output is minimal at this point in time. The patient is calm and comfortable. Denies having any specific complaints. Remains on insulin drip which is running at 1 unit an hour for adequate blood sugar control. On 05/05/2024, the patient is being seen for a follow-up. The patient is currently on her intrinsic pacemaker and she is pacing at rate of 60. Her cardiac output and index are being monitored. Earlier this morning, the cardiac index was a 2.2. The patient remains on milrinone 0.125 mcg/kg/min. Urine output is adequate. Output from the chest tubes are minimal. Using incentive spirometer. She remains on 2 L of oxygen by nasal cannula. Chest x-ray from today shows small bilateral pleural effusions and cardiomegaly. Blood work from today shows a white cell count of 12.4, hemoglobin of 9.4 and platelet count of 73. BUN is 20 with a creatinine of 0.7 and sodium is at 130. The patient was started on metoprolol 12.5 mg p.o. twice a day. She is centimeter on 12 mg p.o. daily. She remains on aspirin. Rest of the medications remain unchanged. Midodrine was also added 5 mg p.o. 3 times daily. She is also on losartan 12.5 mg p.o. daily. She is currently postop day #2 following a aortic valve replacement and mitral valve repair. On today's evaluation 05/06/2024, the patient is being seen for a follow-up. The patient remains on 2 L of oxygen by nasal cannula. Chest x-ray findings remain unchanged the patient continues to have some small bilateral pleural effusions. The patient utilizing her intrinsic pacemaker. Urine output is in order of 30 to 40 cc an hour. She remains on milrinone at 0.25 mcg/kg/h and a cardiac index of 2.2. The patient is still inotrope dependent as the patient's cardiac output is dropping while the milrinone is being weaned. Meanwhile, the patient was given Lasix 40 mg IV push x 1. Awake and alert and communicating. No focal neurological deficits. Chest tubes have been removed. The white cell count of 14.1, hemoglobin is at 9.3 and a platelet count of 75. Sodium is at 126, BUN is 29 with a creatinine of 0.9. Potassium level is at 4.9. The patient is currently on amiodarone 200 mg p.o. daily. The patient is also on metoprolol which is currently on hold. Midodrine at 5 mg p.o. 3 times daily. Aspirin and Plavix. Hydralazine 50 mg p.o. twice daily. Oxycodone for pain control. The patient is postop day #3 following awaiting placement and mitral valve repair. On 05/07/2024, the patient is being seen for a follow-up. The patient remains on 2 L of oxygen by nasal cannula and chest x-ray still showing evidence of bilateral pleural effusion and pulm vascular congestion. The cardiac output is at 2.6 with an index of 1.8. SVR is at 1936. PA pressures are 45/25. CVP is 18. Given a dose of Lasix 20 mg IV push x 1 today. Remains in atrial fibrill ation. Urine output is in order of 40 cc an hour and the patient remains on milrinone at 0.125 mcg/kg/h. The hemoglobin is at 9.2. White cell count is at 11.9. Platelet count is 105. BUN 33 creatinine of 0.9. Sodium levels at 126. Meanwhile, the patient is on metoprolol 12.5 mg p.o. twice a day. The patient remains on aspirin and Plavix. The patient is on hydralazine 50 mg p.o. twice daily with close monitoring of the blood pressure. Ambulating., Comfortable. Chest tubes have been removed. The patient is postop day #4 following aortic valve replacement and mitral valve repair. On 05/08/2024, the patient is awake and alert and she remains on 5 L of O2 nasal cannula. Chest x-ray essentially unchanged and shows pulm vessel congestion bilateral pleural effusions. Chest tubes have been removed. Cardiac index is ranging between 1.8 and 2 and the patient was taken off the milrinone drip. For now, the patient amiodarone 4 mg p.o. twice a day, metoprolol 12.5 mg twice daily and he was given Lasix 40 mg IV push x 1. She remains on hydralazine for afterload reduction 50 mg p.o. twice a day. Blood work shows a white cell count of 15.1, hemoglobin is at 9 and a platelet count of 139. Sodium is at 128, BUN 38 with a creatinine 1.0 and potassium dose is 4.9. LFTs are slightly elevated the patient is postop day 5 following aortic valve placement and mitral valve repair. On 05/09/2024, the patient is being seen for a follow-up. The patient remains off milrinone. The cardiac index is at 1.7 and the patient remains on 2 L of oxygen by nasal cannula. She remains atrial fibrillation. She is on amiodarone 4 mg p.o. twice a day and metoprolol 25 mg p.o. twice a day and she remains on a combination of aspirin and Plavix. The patient is also on hydralazine for afterload reduction 50 mg p.o. 3 times daily. She was given Lasix 40 mg IV push x 1 today. Chest x-ray findings are essentially unchanged and the patient has small bilateral pleural effusion and pulm vessel congestion. The white cell count is at 17, hemoglobin is at 9.3 and a platelet count is 161. Sodium levels at 127, potassium level is at 5, BUN is 43 with a creatinine of 1.07. The patient did have some mild transaminitis which is improving compared to yesterday. Chest tubes are removed. No other significant events overnight. The patient is currently on 2 L of oxygen by nasal cannula. She is ambulating. Patient was seen today on 05/10/2024, patient remains in the ICU on 4 L nasal cannula, she is still requiring milrinone at 0.1 mcg/kg/min, IV fluids at 20 cc/h, patient continues to have paced rhythm, today she underwent left-sided thoracentesis and I was able to retrieve 700 cc of serosanguineous fluid from the left pleural space. Patient tolerated the procedure well, she does not seem to be in any distress, she does feel woozy intermittently, and I believe the patient may be having episodes of low blood pressure she is on 2 L nasal cannula with O2 sats of 97%, achieving about 750 mL with her incentive spirometry. On the monitor she continues to have occasional episodes of atrial fibrillation, remains on amiodarone and she is also on metoprolol 25 twice daily, Primacor is infusing at 0.1 mcg/kg/min. Liver enzymes seems to be trending up. Episodes are being closely monitored. Chest x-ray showed evidence of bilateral pleural effusions, left more so than right, hence I went ahead and performed left-sided thoracentesis on this patient. WBC count is elevated 18.2 hemoglobin 8.8 sodium is 124 potassium 4.8 BUN is 75 creatinine 1.26 liver enzymes are elevated with AST of 435 ALT 441 and alkaline phosphatase of 180 Patient was seen today on 05/11/2024, patient is now postoperative day #8. Remains in the ICU, blood pressure seems to be marginal, denies shortness of breath denies any pain, patient is ambulating with assistance. Remains on Primacor at 0.1 mcg/kg/min, her sodium is low at 123, and there is a concern about further diuresing the patient, this is being addressed by nephrology on the case. Remains on amiodarone for atrial fibrillation, yesterday she underwent left-sided thoracentesis and 700 cc of fluid was drained. Chest x-ray today showed small tiny pleural effusions bilaterally. And there is a concern of mild pulmonary vascular congestion/pulmonary edema. O2 saturation is 90% on 4 L nasal cannula. IV fluid is at KVO. Patient was seen today on 05/12/2024, she is now postoperative day #9, remains in the ICU, sitting up in a recliner, does not seem to be in any distress, patient is on 2 L nasal cannula with O2 sats of 94%. Labs have improved, sodium is up to 133 potassium 4.6 BUN is 93 creatinine 1.09. WBC count is 12.4 hemoglobin is 9.0. Chest x-ray showed small bilateral pleural effusions not large enough to consider thoracentesis and it also showed some postoperative changes. Patient is ambulatory, she is ambulating in the hallway with assistance. Patient has been diuresed and she had significant urine output in the last 24 hours. In the meantime her sodium improved up to 133. Patient was seen today on 05/13/2024, patient is doing great, hardly any complaints, no shortness of breath no cough no wheezing, on room air, O2 saturation 96%, chest x-ray showed dramatic improvement in her pleural effusions and congestive heart failure. Chest x-ray showed small bilateral pleural effusion, not large enough for thoracentesis. WBC 12.7 hemoglobin 9.3 basic metabolic profile is normal BUN is 82 creatinine 1.18 Seen on 05/14/2024, patient continues to do well, asymptomatic, hardly any pulmonary symptoms, patient feels the best she has felt so far. Chest x-ray showed bilateral small pleural effusions and atelectasis no clear-cut evidence of pneumonia. Labs showed WBC count of 12.8 hemoglobin 9.6 electrolytes are normal BUN is 85 creatinine 1.12. Seen today on 05/15/2024, patient continues to do well, she is now in the stepdown unit, sitting up in the chair, does not seem to be in any distress, she does have some generalized weakness and fatigue, patient is on room air, O2 saturation 99%, achieving 750 mL on her incentive spirometry, patient remains in atrial fibrillation but rate seems to be controlled below 100. She is on amiodarone 200 twice daily, and she is also on metoprolol. Infectious disease discontinued her cefepime, and she is on Diflucan for thrush. WBC count today is 8.7 hemoglobin 9.8 electrolytes are normal BUN is 84 creatinine 1.13 not much different from yesterday. Seen today on 05/16/2024, patient is doing great, asymptomatic, on room air, not in any distress. Chest x-ray is showing small bilateral pleural effusions, patient is however asymptomatic. WBC count is 7.3 hemoglobin 10.0 electrolytes are normal BUN is 80 creatinine 1.09 Objective - Vital Signs Vital signs: Vital Signs Temp 97.6 F 05/16/24 11:24 Pulse 59 L 05/16/24 11:53 Resp 18 05/16/24 11:24 BP 93/64 05/16/24 11:24 Pulse Ox 96 05/16/24 11:24 FiO2 0 05/13/24 12:11 Intake & Output 05/15/24 05/16/24 05/16/24 18:59 06:59 18:59 Intake Total 490 240 260 Output Total 500 600 Balance -10 -360 260 Weight 55.2 kg Intake: IV 10 20 Invasive Line 6 10 20 Oral 480 240 240 Output: Urine 500 600 Other: Voiding Method Toilet Toilet Toilet # Voids 2 2 # Bowel Movements 1 1 ABP, PAP, CO, CI - Last Documented Arterial Blood Pressure 106/55 Pulmonary Artery Pressure 39/22 Cardiac Output 2.4 Cardiac Index 1.5 - Exam General: Revealed 79-year-old female in no distress, on room air Head: Atraumatic normocephalic EENT: PERRLA, EOMI, nonicteric no neck masses no JVD RESPIRATORY: Diminished breath sounds at the bases no crackles, rhonchi or wheezes CARDIOVASCULAR: Distant S1-S2, no S3 gallop, no murmur GASTROINTESTINAL: Abdomen is soft nontender no rebound no guarding INTEGUMENTARY: No rashes NEUROLOGIC: Alert oriented x 3 no gross focal deficit MUSKULOSKELETAL: No deformities and no limitation range of motion PSYCHIATRIC: Normal mood affect and no mental status examination - Labs CBC & Chem 7: 05/16/24 06:05 05/16/24 06:05 Labs: Abnormal Lab Results - Last 24 Hours (Table) 05/15/24 05/15/24 05/16/24 Range/Units 16:45 19:45 05:56 RBC (3.80-5.40) m/uL Hgb (11.4-16.0) gm/dL Hct (34.0-46.0) % MCV (80.0-100.0) fL MCHC (31.0-37.0) g/dL RDW (11.5-15.5) % Lymphocytes # (1.0-4.8) k/uL Macrocytosis Sodium (137-145) mmol/L Chloride (98-107) mmol/L Carbon Dioxide (22-30) mmol/L BUN (7-17) mg/dL Creatinine (0.52-1.04) mg/dL Glucose (74-99) mg/dL POC Glucose (mg/dL) 125 H 132 H 120 H (70-110) mg/dL AST (14-36) U/L ALT (4-34) U/L Alkaline Phosphatase (38-126) U/L Total Protein (6.3-8.2) g/dL Albumin (3.5-5.0) g/dL 05/16/24 05/16/24 05/16/24 Range/Units 06:05 06:05 11:24 RBC 3.09 L (3.80-5.40) m/uL Hgb 10.0 L (11.4-16.0) gm/dL Hct 32.5 L (34.0-46.0) % MCV 105.5 H (80.0-100.0) fL MCHC 30.8 L (31.0-37.0) g/dL RDW 21.3 H (11.5-15.5) % Lymphocytes # 0.7 L (1.0-4.8) k/uL Macrocytosis Marked A Sodium 132 L (137-145) mmol/L Chloride 93 L (98-107) mmol/L Carbon Dioxide 32 H (22-30) mmol/L BUN 80 H (7-17) mg/dL Creatinine 1.09 H (0.52-1.04) mg/dL Glucose 101 H (74-99) mg/dL POC Glucose (mg/dL) 113 H (70-110) mg/dL AST 70 H (14-36) U/L ALT 207 H (4-34) U/L Alkaline Phosphatase 145 H (38-126) U/L Total Protein 5.7 L (6.3-8.2) g/dL Albumin 3.2 L (3.5-5.0) g/dL Microbiology - Last 24 Hours (Table) 05/10/24 13:57 Blood Culture - Final Blood Assessment and Plan Assessment: Impression:POD #13 aortic valve replacement using a 19 mm Inspiris pericardial bioprosthesis, mitral valve repair using a posterior annuloplasty band 26 mm annuloflex, exclusion of the left atrial appendage using a 35mm AtriClip, and transesophageal echocardiogram and epiaortic scanning. Severe aortic valve regurgitation, status post aortic valve replacement Moderate mitral valve regurgitation, status post mitral valve repair Mild to moderate tricuspid valve regurgitation Mild pulmonary hypertension Postoperative blood loss anemia and thrombocytopenia, expected given cardiopulmonary bypass and hemodilution Hypervolemic hyponatremia Transaminitis, felt to be from volume overload History of chronic heart failure with reduced ejection fraction, EF 40% Hypertension Chronic kidney disease stage III Iron deficiency anemia Paroxysmal atrial fibrillation with cardioversion in 2023 on Eliquis for anticoagulation status post permanent dual-chamber pacemaker, status post ligation of the left atrial appendage Embolic stroke with full recovery in 2016 Mild lung disease, preoperative FEV1 73% of predicted Lifelong non-smoker Status post left-sided thoracentesis on 05/10/2024, 700 cc removed from the left pleural space Recommendation: Continue incentive spirometry Continue ambulation Continue diuretics Continue GI DVT prophylaxis Awaiting placement Will continue to follow Time with Patient: Less than 30
--- NOTE | 2024-05-16 15:27 | P.PN ---
Subjective Progress Note Date: 05/16/24 Principal diagnosis: Reason for follow-up is leukocytosis/UTI Patient is a 79-year-old female with a past medical history significant for Atrial Fibrillation, Heart Failure, CVA/TIA, Eye Disorder, Hearing Disorder / Deafness, Hyperlipidemia, Hypertension, Osteoarthritis (OA), Renal Disease, Skin Disorder electively admitted to the hospital after the patient did have aortic valve replacement mitral valve repair, did have urinary symptoms of burning positive UA concerning for UTI elevated white count prompted this consultation. On today's evaluation that is 05/16/2024, Patient is afebrile patient is currently on room air and denies having any shortness of breath, the patient denies any chest pain or cough, the patient denies any nausea vomiting did not have any abdominal pain and no diarrhea other complaining of constipation as well as some sore throat. Patient white count 7.3, creatinine 1.09 Objective - Vital Signs Vital signs: Vital Signs Temp 97.6 F 05/16/24 11:24 Pulse 104 H 05/16/24 15:21 Resp 18 05/16/24 11:24 BP 93/64 05/16/24 11:24 Pulse Ox 96 05/16/24 11:24 FiO2 0 05/13/24 12:11 Intake & Output 05/15/24 05/16/24 05/16/24 18:59 06:59 18:59 Intake Total 490 240 500 Output Total 500 600 Balance -10 -360 500 Weight 55.2 kg Intake: IV 10 20 Invasive Line 6 10 20 Oral 480 240 480 Output: Urine 500 600 Other: Voiding Method Toilet Toilet Toilet # Voids 2 2 # Bowel Movements 1 1 ABP, PAP, CO, CI - Last Documented Arterial Blood Pressure 106/55 Pulmonary Artery Pressure 39/22 Cardiac Output 2.4 Cardiac Index 1.5 - Exam GENERAL DESCRIPTION: An elderly In the chair in no distress RESPIRATORY SYSTEM: Unlabored breathing , decreased breath sounds at bases HEART: S1 S2 regular rate and rhythm , ABDOMEN: Soft , no tenderness EXTREMITIES: No edema feet - Labs CBC & Chem 7: 05/16/24 06:05 05/16/24 06:05 Labs: Abnormal Lab Results - Last 24 Hours (Table) 05/15/24 05/15/24 05/16/24 Range/Units 16:45 19:45 05:56 RBC (3.80-5.40) m/uL Hgb (11.4-16.0) gm/dL Hct (34.0-46.0) % MCV (80.0-100.0) fL MCHC (31.0-37.0) g/dL RDW (11.5-15.5) % Lymphocytes # (1.0-4.8) k/uL Macrocytosis Sodium (137-145) mmol/L Chloride (98-107) mmol/L Carbon Dioxide (22-30) mmol/L BUN (7-17) mg/dL Creatinine (0.52-1.04) mg/dL Glucose (74-99) mg/dL POC Glucose (mg/dL) 125 H 132 H 120 H (70-110) mg/dL AST (14-36) U/L ALT (4-34) U/L Alkaline Phosphatase (38-126) U/L Total Protein (6.3-8.2) g/dL Albumin (3.5-5.0) g/dL 05/16/24 05/16/24 05/16/24 Range/Units 06:05 06:05 11:24 RBC 3.09 L (3.80-5.40) m/uL Hgb 10.0 L (11.4-16.0) gm/dL Hct 32.5 L (34.0-46.0) % MCV 105.5 H (80.0-100.0) fL MCHC 30.8 L (31.0-37.0) g/dL RDW 21.3 H (11.5-15.5) % Lymphocytes # 0.7 L (1.0-4.8) k/uL Macrocytosis Marked A Sodium 132 L (137-145) mmol/L Chloride 93 L (98-107) mmol/L Carbon Dioxide 32 H (22-30) mmol/L BUN 80 H (7-17) mg/dL Creatinine 1.09 H (0.52-1.04) mg/dL Glucose 101 H (74-99) mg/dL POC Glucose (mg/dL) 113 H (70-110) mg/dL AST 70 H (14-36) U/L ALT 207 H (4-34) U/L Alkaline Phosphatase 145 H (38-126) U/L Total Protein 5.7 L (6.3-8.2) g/dL Albumin 3.2 L (3.5-5.0) g/dL Microbiology - Last 24 Hours (Table) 05/10/24 13:57 Blood Culture - Final Blood Assessment and Plan (1) Leukocytosis Current Visit: Yes Status: Acute Code(s): D72.829 - ELEVATED WHITE BLOOD CELL COUNT, UNSPECIFIED SNOMED Code(s): 683558311 (2) UTI (urinary tract infection) Current Visit: Yes Status: Acute Code(s): N39.0 - URINARY TRACT INFECTION, SITE NOT SPECIFIED SNOMED Code(s): 80756369 (3) Thrush Current Visit: Yes Status: Acute Code(s): B37.0 - CANDIDAL STOMATITIS SNOMED Code(s): 56711779 Plan: 1patient with elevated white count in this patient electively admitted to hospital and is status post aortic valve replacement and mitral valve repair she did have urinary catheter postsurgery which has been discontinued yesterday now with cloudy urine difficulty urination ID clinic suspicious for urinary source to be responsible for this elevated white count and need to be treated aggressively with recent cardiac procedure 2-patient did have a positive UA blood however urine culture negative cefepime was discontinued 3-patient is afebrile and white count has normalized 4patient to continue with short course of nystatin swish and swallow and Di flucan and will monitor clinical course closely Dictation was produced using [employer] dictation software. please excuse any grammatical, word or spelling errors.
[2024-05-16 16:36] LABS: Glucose,Whole Blood 109 mg/dL (70-110)
[2024-05-16 20:24] LABS: Glucose,Whole Blood 146 mg/dL (70-110)
[2024-05-16 21:10] VITALS: TEMP 97.4
[2024-05-17] MEDS: polyethylene glycoL 3350 17 GM POWD.PACK PO PRN
[2024-05-17 06:11] LABS: Glucose,Whole Blood 108 mg/dL (70-110)
--- NOTE | 2024-05-17 06:41 | XR ---
EXAMINATION TYPE: XR chest 2V DATE OF EXAM: 05/17/2024 6:28 AM COMPARISON: Chest radiographs from 05/16/2024 CLINICAL INDICATION: Female, 79 years old with history of post op cardiac surgery; [facility] TECHNIQUE: XR chest 2V Frontal and lateral views of the chest. FINDINGS: Lungs/Pleura: No evidence of focal consolidation or pneumothorax. Blunting of the costophrenic angles is present. Pulmonary vascularity: Pulmonary vascular congestion. Heart/mediastinum: Cardiomediastinal silhouette is partially obscured due to overlying and adjacent o pacities. Two lead cardiac conduction device overlying the left hemithorax with lead tips projecting over the right ventricle and right atrium.Left atrial appendage occlusion device is present. Left atr ial appendage occlusion device is present. Musculoskeletal: No acute osseous pathology. Midline sternotomy wires are noted. Other findings: Non IMPRESSION: Postprocedural changes with mild pulmonary edema and bilateral pleural effusions. [facility], , 05/17/2024 6:39 AM
[2024-05-17 07:33] LABS: Anisocytosis Moderate; HCT 34.6 % (34.0-46.0); HGB 10.5 gm/dL (11.4-16.0); Hypochromasia Marked; MCH 32.1 pg (25.0-35.0); MCHC 30.5 g/dL (31.0-37.0); MCV 105.4 fL (80.0-100.0); Macrocytosis Marked; Mean Platelet Volume 9.2; Platelet Count 214 k/uL (150-450); Poikilocytosis Slight; RBC 3.28 m/uL (3.80-5.40); RDW 20.9 % (11.5-15.5)
[2024-05-17 07:54] LABS: ALT 166 U/L (4-34); AST 61 U/L (14-36); African American GFR (CKD) 41 (>60 ml/min/1.73 sqM); Albumin 3.2 g/dL (3.5-5.0); Alkaline Phosphatase 159 U/L (38-126); Anion Gap 9 mmol/L; Blood Urea Nitrogen 80 mg/dL (7-17); Calcium 8.8 mg/dL (8.4-10.2); Carbon Dioxide 29 mmol/L (22-30); Chloride 90 mmol/L (98-107); Glucose 102 mg/dL (74-99); Non-African American GFR(CKD) 36 (>60 ml/min/1.73 sqM); Potassium 4.6 mmol/L (3.5-5.1); Sodium 128 mmol/L (137-145); Total Protein 5.8 g/dL (6.3-8.2)
[2024-05-17 08:26] VITALS: BP 103/64; RESP 18
[2024-05-17] MEDS: FUROSEMIDE 40 MG TAB PO SCH (08:37)
--- NOTE | 2024-05-17 09:00 | P.PN ---
Subjective Progress Note Date: 05/17/24 Principal diagnosis: Severe aortic valve regurgitation, moderate mitral valve regurgitation, mild to moderate tricuspid valve regurgitation, and mild pulmonary hypertension. Previo us medical history of moderate left ventricular dysfunction, chronic heart failure with reduced ejection fraction, hypertension, chronic kidney disease stage III, iron deficiency anemia, paroxysmal atrial fibrillation with cardioversion in 2023 on Eliquis for anticoagulation status post permanent dual- chamber pacemaker, embolic stroke with full recovery, hard of hearing, osteoarthritis, mild lung disease, COVID in 2021, and lifelong non-smoker. POD #14 aortic valve replacement using a 19 mm Inspiris pericardial bioprosthesis, mitral valve repair using a posterior annuloplasty band 26 mm annuloflex, exclusion of the left atrial appendage using a 35mm AtriClip, and transesophageal echocardiogram and epiaortic scanning. Postoperative blood loss anemia and thrombocytopenia, expected given ca rdiopulmonary bypass and hemodilution Hypervolemic hyponatremia Transaminitis, felt to be from volume overload Leukocytosis, probable urinary tract infection The patient was seen and examined sitting up in recliner on the cardiac stepdown unit in no acute distress. She denies significant pain, denies shortness of breath currently. Currently in controlled atrial fibrillation, blood pressure s table this morning. Currently on room air with oxygen saturation in the low to mid 90s, able to achieve 1000 mL on incentive spirometry. Continues on amiodarone for A-fib, continues on Eliquis. Chest x-ray, lab work reviewed. Ambulatory in the hallway with nursing staff. Anticipate discharge to inpatient rehab once insurance authorization obtained, hopefully today. No other new concerns. Objective - Vital Signs Vital signs: Vital Signs Temp 97.4 F L 05/17/24 03:11 Pulse 74 05/17/24 08:27 Resp 18 05/17/24 08:21 BP 103/64 05/17/24 08:21 Pulse Ox 94 L 05/17/24 08:21 FiO2 0 05/13/24 12:11 Intake & Output 05/16/24 05/17/24 05/17/24 18:59 06:59 18:59 Intake Total 740 20 0 Output Total 300 Balance 740 -280 0 Weight 56.1 kg Intake: IV 20 20 Invasive Line 6 20 20 Oral 720 0 Output: Urine 300 Other: Voiding Method Toilet Toilet # Voids 1 # Bowel Movements 1 2 ABP, PAP, CO, CI - Last Documented Arterial Blood Pressure 106/55 Pulmonary Artery Pressure 39/22 Cardiac Output 2.4 Cardiac Index 1.5 - Exam CONSTITUTIONAL: Appears comfortable, cooperative, no acute distress RESPIRATORY: Lungs sounds diminished in the bases bilaterally. Respirations even, nonlabored. Currently on room air with oxygen saturation 93%. Able to achieve 1000 mL on incentive spirometry. Strong cough. CARDIOVASCULAR: S1, S2 present. Irregular rate and rhythm, controlled atrial f ibrillation on telemetry. Sternum stable. Palpable peripheral pulses bilaterally. Trace bilateral upper extremity and thigh edema present. No calf pain or tenderness noted. Heart hugger in place with patient demonstrating appropriate use. Antiembolism stockings, SCDs present. GASTROINTESTINAL: Abdomen soft, nontender, nondistended. Active bowel sounds present 4 quadrants. Tolerating diet. Positive bowel movement 05/17 GENITOURINARY: Continues to void INTEGUMENTARY: Skin is warm and dry with evidence of good perfusion. Anterior chest incision well approximated NEUROLOGIC: Cranial nerves II through XII intact MUSKULOSKELETAL: Able to move all extremities, strength equal bilaterally, gait normal PSYCHIATRIC: Alert and oriented to person place and time, appropriate affect, intact judgment and insight - Allied health notes Allied health notes reviewed: nursing - Labs CBC & Chem 7: 05/17/24 06:13 05/17/24 06:13 Labs: Abnormal Lab Results - Last 24 Hours (Table) 05/16/24 05/16/24 05/17/24 Range/Units 11:24 20:13 06:13 RBC 3.28 L (3.80-5.40) m/uL Hgb 10.5 L (11.4-16.0) gm/dL MCV 105.4 H (80.0-100.0) fL MCHC 30.5 L (31.0-37.0) g/dL RDW 20.9 H (11.5-15.5) % Macrocytosis Marked A Sodium (137-145) mmol/L Chloride (98-107) mmol/L BUN (7-17) mg/dL Creatinine (0.52-1.04) mg/dL Glucose (74-99) mg/dL POC Glucose (mg/dL) 113 H 146 H (70-110) mg/dL AST (14-36) U/L ALT (4-34) U/L Alkaline Phosphatase (38-126) U/L Total Protein (6.3-8.2) g/dL Albumin (3.5-5.0) g/dL 05/17/24 Range/Units 06:13 RBC (3.80-5.40) m/uL Hgb (11.4-16.0) gm/dL MCV (80.0-100.0) fL MCHC (31.0-37.0) g/dL RDW (11.5-15.5) % Macrocytosis Sodium 128 L (137-145) mmol/L Chloride 90 L (98-107) mmol/L BUN 80 H (7-17) mg/dL Creatinine 1.42 H (0.52-1.04) mg/dL Glucose 102 H (74-99) mg/dL POC Glucose (mg/dL) (70-110) mg/dL AST 61 H (14-36) U/L ALT 166 H (4-34) U/L Alkaline Phosphatase 159 H (38-126) U/L Total Protein 5.8 L (6.3-8.2) g/dL Albumin 3.2 L (3.5-5.0) g/dL - Imaging and Cardiology Chest x-ray: report reviewed, image reviewed Assessment and Plan Assessment: Severe aortic valve regurgitation, status post aortic valve replacement Moderate mitral valve regurgitation, status post mitral valve repair Mild to moderate tricuspid valve regurgitation Mild pulmonary hypertension Postoperative blood loss anemia and thrombocytopenia, expected given cardiopulmonary bypass and hemodilution Hypervolemic hyponatremia Transaminitis, felt to be from volume overload, resolving Leukocytosis, felt to be from urinary tract infection, resolved Medical debility History of chronic heart failure with reduced ejection fraction, EF 40% Hypertension Chronic kidney disease stage III Iron deficiency anemia Paroxysmal atrial fibrillation with cardioversion in 2023 on Eliquis for anticoagulation status post permanent dual-chamber pacemaker, status post ligation of the left atrial appendage Embolic stroke with full recovery in 2016 Mild lung disease, preoperative FEV1 73% of predicted COVID in 2021 Lifelong non-smoker Plan: Continue to maximize medical therapy with low dose aspirin and beta-pari. Will increase beta-pari therapy when tolerated Continue hydralazine for afterload reduction with hold parameters Continue oral amiodarone for A-fib, continue Eliquis No statin as the patient is sensitive to statins, no hyperlipidemia present Encourage incentive spirometry use 10 times every hour while awake. Bronchodilators per pulmonology. Will monitor daily labs and chest x-rays, electrolyte replacement per protocol. Diuresis per nephrology Increase activity, ambulate as tolerated. PT/OT/cardiac rehab following GI/DVT prophylaxis Pain control per current medication regimen. No Toradol due to the patient's chronic kidney disease. Insulin management per internal medicine, preoperative hemoglobin A1c 6.1% May bladder scan and straight cath for greater than 300 mL residual Continue to monitor record strict accurate intake and output. Discharge planning in progress, anticipate discharge to [facility] once insurance authorization obtained, hopefully today More recommendations to follow based on patient's clinical course.
--- NOTE | 2024-05-17 10:19 | P.PN ---
Subjective This is a pleasant 79year-old patient, follows with Dr. Thayer. 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 Kimbrough macular degeneration. Patient yesterday underwent arctic valve replacement with a bioprosthesis, mitral valve repair with annuloplasty, exclusion of left atrial appendage using a clip,. Today patient is up in a chair. Extubated. Drips include IV insulin, milrinone, amiodarone. Plan to being switched over to p.o. Paced rhythm. Has to chest tubes mediastinal. Clear liquid diet. Doing about 1000 cc on in centive spirometry. May 05: Sitting up in a recliner. Slight shortness of breath. On IV milrinon e and IV heparin drip. Paced rhythm. [address] Eating fair. Been taken off insulin drip. May 06: Saw this afternoon. Up in a recliner. Did transfer from the bed to the chair. Some shortness of breath. A-fib. Given further IV loading IV amiodarone. Remains on IV milrinone. Chest tubes are out. Palacios catheter in place. Eating fair. Sodium a bit worse. Received IV Lasix and albumin. May 07: Up in a recliner. . Palacios catheter remains in place. Tired. Eating fair. Blood pressure remains lower side.-IV milrinone. On hydralazine for afterload reduction. 5 L nasal cannula. Received IV Lasix 20 mg today. Remains in atrial fibrillation. Chest x-ray shows pleural effusion/vascular congestion. May 08: ICU. Up in a recliner. Some shortness of breath. Palacios catheter. Patient switched to oral amiodarone. On 4 L nasal cannula. Eating some. Had a bowel movement. Patient been taken off IV milrinone. Remains in A-fib. Tired. LFTs have bumped up.-Note patient is on amiodarone. To switch to p.o. Could be ischemic hepatitis component. [IV amiodarone discontinued yesterday] May 09: ICU. In a recliner. Remains a bit short of breath. Tired. Eating some. Has been in and out of A-fib with paced rhythm. Remains of IV milrinone. On 4.5 L nasal cannula. Chest x-ray film personally reviewed by me-some scattered infiltrates. Urea added by nephrology for hyponatremia. May 10: ICU. Up in the recliner. Remains tired a bit short of breath. Had a BM yesterday. Patient getting IV albumin. Back on IV milrinone. Since patient is in and out of atrial fibrillation. Further increase in LFTs. Sodium down to 124. 1 dose of tolvaptan given per nephrology. Did text down from cardiothoracic team. Amiodarone should be held given LFTs much elevated. Probable UTI-IV cefepime started by ID. Hydralazine held today May 11: ICU. Up in a recliner. Yesterday underwent left-sided thoracentesis 100 cc removed. Patient dose of amiodarone is being cut back from tomorrow to 200 mg twice daily. Remains on IV cefepime. Also on IV milrinone for hypertension. Also remains on urea twice daily for hyponatremia. Also dose of hydralazine has been cut back. To 25 mg twice daily. Patient been off for urinary catheter at least for 24 hours. Patient did ambulate in the hallway with the staff. Some shortness of breath May 12: ICU. Up in a recliner. Breathing better. 2 L nasal cannula this afternoon. Eating fair. On amiodarone 200 mg twice daily. Remains on IV cefepime. Urea. Is being bothered by restless leg syndrome. Mirapex at night has been added. Remains on DuoNeb. Patient walked 3 feet with physical therapy as documented. IV Lasix. Good urine output. May 21: ICU. Patient seen this morning. Up in a chair. Breathing actually better. Off oxygen on room air. Remains on IV cefepime. Urine culture has be en finalized negative. Blood cultures negative growth at 72 hours. Patient will be moved out of the ICU. A-fib. 05/15 Patient sitting up in bed, she walked in the hallway with the help of her family. She got exertional tiredness. She states she still gets some exertional dyspnea and she has to stop but she denies chest pain. And she feels constipated and she wants something more for laxatives. Patient hemodynamically stable Labs check hemoglobin is 9.8 and creatinine 1.23. Sugar controlled 05/16 patient feels improvement Dyspnea is better today No chest pain She was walking in the hallway today as well like yesterday but she was feeling better as above. No other new complaint 05/17 patient feels little tired because she did not sleep well last night However no chest pain or dyspnea Patient looks improving every day No other new complaint Hemoglobin stable at 10.5, creatinine went up 1.09 up to 1.4 most likely secondary to Lasix when this switched from IV dose twice daily and to oral dose once daily Liver enzymes continue to improve Patient on Eliquis Objective - Vital Signs Vital signs: Vital Signs Temp 97.4 F L 05/17/24 03:11 Pulse 74 05/17/24 08:27 Resp 18 05/17/24 08:21 BP 103/64 05/17/24 08:21 Pulse Ox 94 L 05/17/24 08:21 FiO2 0 05/13/24 12:11 Intake & Output 05/16/24 05/17/24 05/17/24 18:59 06:59 18:59 Intake Total 740 20 0 Output Total 300 Balance 740 -280 0 Weight 56.1 kg Intake: IV 20 20 Invasive Line 6 20 20 Oral 720 0 Output: Urine 300 Other: Voiding Method Toilet Toilet # Voids 1 # Bowel Movements 1 2 ABP, PAP, CO, CI - Last Documented Arterial Blood Pressure 106/55 Pulmonary Artery Pressure 39/22 Cardiac Output 2.4 Cardiac Index 1.5 - Exam GENERAL: The patient is alert and oriented x3, not in any acute distress. Well developed, well nourished. HEENT: Pupils are round and equally reacting to light. EOMI. No scleral icterus. No conjunctival pallor. Normocephalic, atraumatic. No pharyngeal erythema. No thyromegaly. CARDIOVASCULAR: S1 and S2 present. No murmurs, rubs, or gallops. PULMONARY: Chest is clear to auscultation, no wheezing , no crackles. ABDOMEN: Soft, nontender, nondistended, normoactive bowel sounds. No palpable organomegaly. MUSCULOSKELETAL: No joint swelling or deformity. EXTREMITIES: No cyanosis, clubbing, or pedal edema. NEUROLOGICAL: Gross neurological examination did not reveal any focal deficits. SKIN: No rashes. no petechiae. - Labs CBC & Chem 7: 05/17/24 06:13 05/17/24 06:13 Labs: Abnormal Lab Results - Last 24 Hours (Table) 05/16/24 05/16/24 05/17/24 Range/Units 11:24 20:13 06:13 RBC 3.28 L (3.80-5.40) m/uL Hgb 10.5 L (11.4-16.0) gm/dL MCV 105.4 H (80.0-100.0) fL MCHC 30.5 L (31.0-37.0) g/dL RDW 20.9 H (11.5-15.5) % Macrocytosis Marked A Sodium (137-145) mmol/L Chloride (98-107) mmol/L BUN (7-17) mg/dL Creatinine (0.52-1.04) mg/dL Glucose (74-99) mg/dL POC Glucose (mg/dL) 113 H 146 H (70-110) mg/dL AST (14-36) U/L ALT (4-34) U/L Alkaline Phosphatase (38-126) U/L Total Protein (6.3-8.2) g/dL Albumin (3.5-5.0) g/dL 05/17/24 Range/Units 06:13 RBC (3.80-5.40) m/uL Hgb (11.4-16.0) gm/dL MCV (80.0-100.0) fL MCHC (31.0-37.0) g/dL RDW (11.5-15.5) % Macrocytosis Sodium 128 L (137-145) mmol/L Chloride 90 L (98-107) mmol/L BUN 80 H (7-17) mg/dL Creatinine 1.42 H (0.52-1.04) mg/dL Glucose 102 H (74-99) mg/dL POC Glucose (mg/dL) (70-110) mg/dL AST 61 H (14-36) U/L ALT 166 H (4-34) U/L Alkaline Phosphatase 159 H (38-126) U/L Total Protein 5.8 L (6.3-8.2) g/dL Albumin 3.2 L (3.5-5.0) g/dL Assessment and Plan Assessment: Assessment plan: -aorctic valve replacement with a bioprosthesis, mitral valve repair with annuloplasty, exclusion of left atrial appendage using a clip, on May 03, [address] Hammond [Prior moderate mitral regurgitation, severe tricuspid regurgitation, severe aortic regurgitation] -Persistent atrial fibrillation., With patient being in and out of atrial fibrillation Lopressor. Cordarone -Acute hepatitis: Possibly combination of hypotension and being on amiodarone.: Plateaued off Amiodarone dose has been cut back by cardiothoracic team. Follow LFTs -Acute hypoxic respiratory failure secondary to pulmonary edema/pleural effusion:: Improved Patient now is on room air -Acute postprocedure blood loss anemia expected from surgery Follow H&H -Dilutional thrombocytopenia. Preoperative platelets 210: Resolved -Left pleural effusion, possibly secondary to CHF Pulmonary following. 700 cc left thoracentesis done May 10 -Hyperkalemia: Corrected Calcium gluconate, insulin given. -Hyponatremia likely hypervolemic, much improved Follow fluid status closely. Encourage oral intake. Tolvaptan given. On urea -Hypoalbuminemia, multifactorial: Received IV albumin -Acute UTI with cystitis secondary to Palacios catheter IV cefepime -Hard of hearing -Acute on chronic congestive heart failure exacerbation from mild systolic dysf unction nonischemic cardiomyopathy EF 45 to 50%: Improving IV Lasix 40 mg every 12 -Severe secondary pulmonary hypertension -Hypotension, cardiac: Better On IV milrinone-discontinue -Primary osteoarthritis Tylenol as needed -Colonic diverticulosis, asymptomatic -Chronic kidney disease stage IIIa, baseline creatinine from 1 2-1.3, secondary nephrosclerosis Follows with Dr. Kimbrough outpatient -Pacemaker 2017, for sick sinus syndrome -Full code Continues to improve. Off oxygen.
--- NOTE | 2024-05-17 10:27 | P.PN ---
Subjective Patient is seen in follow-up for chronic kidney disease. Renal function worse today. Maintained on oral Lasix and frequency was decreased to once daily yesterday. Oral intake fair. Did vomit this morning. Vital signs are stable. General: No acute distress. HEENT: On room air. LUNGS: Scattered rhonchi. HEART: Rate and Rhythm are regular. ABDOMEN: Nontender. EXTREMITITES: 1+ edema. Objective - Vital Signs Vital signs: Vital Signs Temp 97.4 F L 05/17/24 03:11 Pulse 74 05/17/24 08:27 Resp 18 05/17/24 08:21 BP 103/64 05/17/24 08:21 Pulse Ox 94 L 05/17/24 08:21 FiO2 0 05/13/24 12:11 Intake & Output 05/16/24 05/17/24 05/17/24 18:59 06:59 18:59 Intake Total 740 20 0 Output Total 300 Balance 740 -280 0 Weight 56.1 kg Intake: IV 20 20 Invasive Line 6 20 20 Oral 720 0 Output: Urine 300 Other: Voiding Method Toilet Toilet # Voids 1 # Bowel Movements 1 2 ABP, PAP, CO, CI - Last Documented Arterial Blood Pressure 106/55 Pulmonary Artery Pressure 39/22 Cardiac Output 2.4 Cardiac Index 1.5 - Labs CBC & Chem 7: 05/17/24 06:13 05/17/24 06:13 Labs: Abnormal Lab Results - Last 24 Hours (Table) 05/16/24 05/16/24 05/17/24 Range/Units 11:24 20:13 06:13 RBC 3.28 L (3.80-5.40) m/uL Hgb 10.5 L (11.4-16.0) gm/dL MCV 105.4 H (80.0-100.0) fL MCHC 30.5 L (31.0-37.0) g/dL RDW 20.9 H (11.5-15.5) % Macrocytosis Marked A Sodium (137-145) mmol/L Chloride (98-107) mmol/L BUN (7-17) mg/dL Creatinine (0.52-1.04) mg/dL Glucose (74-99) mg/dL POC Glucose (mg/dL) 113 H 146 H (70-110) mg/dL AST (14-36) U/L ALT (4-34) U/L Alkaline Phosphatase (38-126) U/L Total Protein (6.3-8.2) g/dL Albumin (3.5-5.0) g/dL 05/17/24 Range/Units 06:13 RBC (3.80-5.40) m/uL Hgb (11.4-16.0) gm/dL MCV (80.0-100.0) fL MCHC (31.0-37.0) g/dL RDW (11.5-15.5) % Macrocytosis Sodium 128 L (137-145) mmol/L Chloride 90 L (98-107) mmol/L BUN 80 H (7-17) mg/dL Creatinine 1.42 H (0.52-1.04) mg/dL Glucose 102 H (74-99) mg/dL POC Glucose (mg/dL) (70-110) mg/dL AST 61 H (14-36) U/L ALT 166 H (4-34) U/L Alkaline Phosphatase 159 H (38-126) U/L Total Protein 5.8 L (6.3-8.2) g/dL Albumin 3.2 L (3.5-5.0) g/dL Assessment and Plan Plan: Assessment: 1. Chronic kidney disease stage IIIa with baseline creatinine 1-1.3 secondary to nephrosclerosis. GFR near baseline. 2. Status post aortic valve replacement and mitral valve repair May 03, 2024. 3. Mild hyperkalemia secondary to underlying CKD and use of KHADIJAH inhibitor. Resolved. 4. Anemia. Iron deficiency noted. Status post IV iron completed May 08, 2024. 5. Volume overload. On Lasix. 6. Hypervolemic hyponatremia. Urine sodium less than 20 and urine osmolality 418. TSH normal. Plan: Maintain fluid restriction. Maintain Lasix. Encouraged oral intake. Avoid nephrotoxins. Continue to monitor renal function and urine output. Hold hydralazine for systolic blood pressure less than 110.
[2024-05-17 11:10] LABS: Glucose,Whole Blood 147 mg/dL (70-110)
[2024-05-17 11:45] VITALS: PULSE 88
--- NOTE | 2024-05-17 12:04 | P.PN ---
Subjective Progress Note Date: 05/17/24 Principal diagnosis: cardiac debility Jenise Kent is a 79 year old, right handed, , who lives alone in a single story home, with 3 STFD. Prior to admission, pt was ambulating without an assistive device. Pt was independent for basic/advanced ADLs. Retired: yes. Support system: has 3 children, only 1 daughter lives local. Pt was admitted on 05/03/24 post arctic valve replacement with a bioprosthesis, mitral valve repair with annuloplasty, exclusion of left atrial appendage using a clip. Per review of recoreds: On 05/04, patient was extubated, on IV insulin, milrinone and amiodarone, had mediatinal chest tubes. 05/05, on IV milrinone and IV heparin drip, Paced rhythm, [address] 05/06, given further IV amiodarone due to A.fib, contiued on IV milrinone, chest tubes out. 05/07: edmond catheter in place, blood pressure remains on lower side - continued on IV milrinone, received IV lasix. IV amiodarone stopped. Remains in atrial fibrillation. Chest x-ray shows pleural effusion/vascular congestion. 05/08: Edmond catheter, Patient switched to oral amiodarone, 4L NC, Had BM, taken off IV milrinone, Remains in A-fib, LFTs elevated. 05/09: Has been in and out of A-fib with paced rhythm, on 4.5 L nasal cannula. Chest x-ray with some scattered infiltrates, Urea added by nephrology for hyponatremia. 05/10: Patient getting IV albumin, Back on IV milrinone, patient is in and out of atrial fibrillation, Further increase in LFTs, Sodium down to 124, 1 dose of tolvaptan given per nephrology. Amiodarone held given elevated LFTs, Probable UTI-IV cefepime sta rted by ID. Underwent left-sided thoracentesis 700 cc removed. 05/11: amiodarone decreased, Remains on IV cefepime, Also on IV milrinone for hypertension, Also remains on urea twice daily for hyponatremia, hydralazine decreased to 25 mg twice daily, urinary catheter out for at least for 24 hours. May 12: 2 L nasal cannula, On amiodarone 200 mg twice daily., Remains on IV cefepime, IV lasix, Urea. + restless leg syndrome, Mirapex added per primary teams. PM&R consulted for rehab recommendations. Therapy notes reviewed, on 05/13, patient needing: PT: sit to stand Conner, gait 330 feet Conner SPINNER CAP FRAME OT: bathing Conner, LB dress Conner, toileting Conner 05/13/24: Patient seen and examined sitting in chair, daughter at BS. Patient reports she feels tired and feels SOB with activity. Denies CP, sob at rest, and abdominal pain. Reports BLLE weakness due to hospital stay and recent surgery, hoping to gain some strength back after continued work with therapy. Reports she was previously completely independent and walking over 2 miles per day. 05/17/24: Patient has been cleared for rehab. She is stable from medical/cardiac stand point. Feels doing well, denies VELAZQUEZ, CP, SOB, abdominal pain. Looking forward to therapy. Therapy Progress: Min assist with bathing and dressing, min assist with ambula ting with multiple rest breaks. Objective - Vital Signs Vital signs: Vital Signs Temp 97.4 F L 05/17/24 03:11 Pulse 88 05/17/24 11:45 Resp 18 05/17/24 08:21 BP 103/64 05/17/24 08:21 Pulse Ox 94 L 05/17/24 08:21 FiO2 0 05/13/24 12:11 Intake & Output 05/16/24 05/17/24 05/17/24 18:59 06:59 18:59 Intake Total 740 20 0 Output Total 300 Balance 740 -280 0 Weight 56.1 kg Intake: IV 20 20 Invasive Line 6 20 20 Oral 720 0 Output: Urine 300 Other: Voiding Method Toilet Toilet # Voids 1 # Bowel Movements 1 2 ABP, PAP, CO, CI - Last Documented Arterial Blood Pressure 106/55 Pulmonary Artery Pressure 39/22 Cardiac Output 2.4 Cardiac Index 1.5 - Exam General: Well-developed, well-nourished, female, in no acute distress, appears fatigued HEENT: NC/AT, external ears intact, +KIANA Cardiovascular: B/L calves with SCDs, + BLLE edema, no cardiac distress, laboratory monitor and heart hugger in place Respiratory: Even and unlabored breathing on RA Abdomen: Soft, nontender, nondistended Musculoskeletal: ROM WFL EXCEPT: decreased B/L SABD due to old injuries Neurological: Alert and oriented x 4. CN II-XII: Grossly intact. Speech is fluent, sometimes slurred 2' fatigue (daughter at BS confirmed this occurs when she is tired and is not a new occurrence) MMT: B/L FABD/WE 4/5; B/L EE/EF 4+/5; B/L HF/KE/DF/EHL 4/5 Reflexes: equal B/L upper and lower extremities Sensation: intact to light touch of B/L upper and lower extremities Skin: Skin intact where visible to head, neck, and bilateral upper and lower extremities EXCEPT: left brachial arterial line, right IV; chest incision with dressing C/D/I Psychiatric: Mood calm, affect appropriate, cooperative - Labs CBC & Chem 7: 05/17/24 06:13 05/17/24 06:13 Labs: Abnormal Lab Results - Last 24 Hours (Table) 05/16/24 05/17/24 05/17/24 Range/Units 20:13 06:13 06:13 RBC 3.28 L (3.80-5.40) m/uL Hgb 10.5 L (11.4-16.0) gm/dL MCV 105.4 H (80.0-100.0) fL MCHC 30.5 L (31.0-37.0) g/dL RDW 20.9 H (11.5-15.5) % Macrocytosis Marked A Sodium 128 L (137-145) mmol/L Chloride 90 L (98-107) mmol/L BUN 80 H (7-17) mg/dL Creatinine 1.42 H (0.52-1.04) mg/dL Glucose 102 H (74-99) mg/dL POC Glucose (mg/dL) 146 H (70-110) mg/dL AST 61 H (14-36) U/L ALT 166 H (4-34) U/L Alkaline Phosphatase 159 H (38-126) U/L Total Protein 5.8 L (6.3-8.2) g/dL Albumin 3.2 L (3.5-5.0) g/dL 05/17/24 Range/Units 11:08 RBC (3.80-5.40) m/uL Hgb (11.4-16.0) gm/dL MCV (80.0-100.0) fL MCHC (31.0-37.0) g/dL RDW (11.5-15.5) % Macrocytosis Sodium (137-145) mmol/L Chloride (98-107) mmol/L BUN (7-17) mg/dL Creatinine (0.52-1.04) mg/dL Glucose (74-99) mg/dL POC Glucose (mg/dL) 147 H (70-110) mg/dL AST (14-36) U/L ALT (4-34) U/L Alkaline Phosphatase (38-126) U/L Total Protein (6.3-8.2) g/dL Albumin (3.5-5.0) g/dL Assessment and Plan Assessment: #Impaired gait and ADL's 2' Cardiac debility related to aorctic valve replacement with a bioprosthesis, mitral valve repair with annuloplasty, exclusion of left atrial appendage using a clip on 05/03/[address] Hammond -therapies -cardiac precautions #Atrial fibrillation #Acute hepatitis 2' hypotension and amiodarone #Acute hypoxic respiratory failure 2' pulmonary edema/pleural effusion #Acute post procedure blood loss anemia #Dilutional thrombocytopenia #Left pleural effusion, possibly 2' CHF -Pulmonary following; 700 cc left thoracentesis done May 10 #Leukocytosis #Hyperkalemia #Hyponatremia -Nephrology following, Tolvaptan given, On urea #Hypoalbuminemia -Received IV albumin #Acute UTI with cystitis 2' indwelling Edmond catheter -s/p abx #Acute on chronic congestive heart failure exacerbation from mild systolic dysfunction nonischemic cardiomyopathy EF 45 to 50% -s/p lasix #Severe secondary pulmonary hypertension #Hypotension #Osteoarthritis -Tylenol per APR #S/P CVA #Chronic kidney disease, baseline creatinine from 1 2-1.3 #Pacemaker 2016 2' sick sinus syndrome # Bowel/ Bladder: Nursing to monitor and report concerns if any. # Skin/wound: Skin/Wound care to follow as needed # Pain Management - tylenol PRN # DVT Prophylaxis: Defer to Cardio/IM management. # Comorbidities: atrial fibrillation, hypertension, tinnitus, diverticulosis, kidney stones, macular degeneration # Your medical dx and mgt Goals: Modified Independent mobility and ADLS both basic and advanced; increased functional mobility/strength; increased balance, safety, endurance. Improvement in medical issues through your care. Barriers: weakness, fall risk Discharge recommendation: Plan to admit to IPR on 05/17/24 Patient seen and examined in coordination with Dr. Pablo.
--- NOTE | 2024-05-17 12:45 | P.DS ---
Providers Date of admission: 05/03/24 05:37 Expected date of discharge: 05/17/24 Attending physician: Bautista Hammond Consults: 05/03/24 14:00 Consult Physician Routine Consulting Provider: Josiah Haney Consult Reason/Comments: End Frazer Consult: post cardiac surgery Do you want consulting provider notified?: Yes Consult Physician Routine Consulting Provider: Maury Barrientos Consult Reason/Comments: [employer] Consult: post cardiac surgery Do you want consulting provider notified?: Yes Consult Physician Routine Consulting Provider: Michael Holland Consult Reason/Comments: insulin management; [place] patient Do you want consulting provider notified?: Yes 05/03/24 14:28 Consult Physician Routine Consulting Provider: Colt Huynh Consult Reason/Comments: known to [facility] outpatient;ckd Do you want consulting provider notified?: Yes 05/10/24 08:44 Consult Physician Routine Consulting Provider: Charlotte Hernandez Consult Reason/Comments: Elevated WBC Do you want consulting provider notified?: Yes 05/13/24 08:09 Consult Physician Routine Consulting Provider: William Gillis Consult Reason/Comments: IPR at discharge Do you want consulting provider notified?: Yes Primary care physician: Gino Thayer [facility] Course: FINAL DIAGNOSIS: Severe aortic valve regurgitation Moderate mitral valve regurgitation Mild to moderate tricuspid valve regurgitation Mild pulmonary hypertension Postoperative blood loss anemia and thrombocytopenia, expected given cardiopulmonary bypass and hemodilution Hypervolemic hyponatremia Transaminitis, felt to be from volume overload, resolving Leukocytosis, felt to be from urinary tract infection, resolved Medical debility History of chronic heart failure with reduced ejection fraction, EF 40% Hypertension Chronic kidney disease stage III Iron deficiency anemia Paroxysmal atrial fibrillation with cardioversion in 2023 on Eliquis for anticoagulation status post permanent dual-chamber pacemaker, status post ligati on of the left atrial appendage Embolic stroke with full recovery in 2017 Mild lung disease, preoperative FEV1 73% of predicted COVID in 2021 Lifelong non-smoker PRINCIPAL PROCEDURE: Aortic valve replacement using a 19 mm Inspiris pericardial bioprosthesis Mitral valve repair using a posterior annuloplasty band 26 mm annuloflex Exclusion of the left atrial appendage using a 35mm AtriClip Transesophageal echocardiogram and epiaortic scanning HISTORY OF PRESENT ILLNESS: This is a 79-year-old female who follows outpatient with Dr. Thayer for primary care and Dr. Perez for cardiology, as well as Dr. Kimbrough for nephrology. This lady had been followed for several years for aortic and mitral valve regurgitation but had relatively minimal symptoms. In 2023 she was seen by Dr. Jasso but, as she was minimally symptomatic, recommendation was made for continuing surveillance. She developed atrial fibrillation in July 2023 requiring cardioversion, and again in January 2024. Following that she was sent to Dr. Hammond for reevaluation and consideration for valve surgery. She was recommended to undergo full workup for open heart surgery as well as obtain dental clearance after which time she was recommended to undergo aortic valve replacement and mitral valve repair. The usual perioperative course was discussed in detail with the patient and her family, all risks and benefits were explained, all questions were answered, and consent was obtained to proceed with surgery. The patient was scheduled for elective surgery at the earliest possible date. HOSPITAL COURSE: The patient was brought to the hospital on 05/03/24, taken to the preoperative area, prepared in the usual fashion, and subsequently taken to the operating room where Dr. Hammond performed aortic valve replacement and m itral valve repair. Upon completion of surgery the patient was transferred to the cardiovascular intensive care unit where she was recovered and monitored hemodynamically. She did have a prolonged and eventful postoperative course including hyponatremia, leukocytosis, and transaminitis all resolved or resolving at discharge. She was extubated, all lines, tubes, and drips were discontinued when appropriate, and she was transferred to 3 S cardiac stepdown unit for further monitoring and rehabilitation. Her oxygen was titrated down, she continued to work with physical and occupational therapy, she was tolerating oral diet, her pain was controlled, and she was ready to be discharged to [facility] inpatient rehab on postoperative day #14. She received written and verbal instruction regarding her medications, activity restrictions, signs and symptoms requiring physician notification, and follow-up appointments. Patient Condition at Discharge: Stable Plan - Discharge Summary Discharge Rx Participant: No New Discharge Prescriptions: New hydrALAZINE HCL [Apresoline] 25 mg PO Q12HR tab Fluconazole [Diflucan] 100 mg PO DAILY tab Ipratropium-Albuterol Nebulize [Duoneb 0.5 mg-3 mg/3 ml Soln] 3 ml INHALATION RT-QID each INSULIN LISPRO (HumaLOG) [HumaLOG] 0 unit SQ ACHS each Metoprolol Tartrate [Lopressor] 25 mg PO BID tab Melatonin 6 mg PO HS tab Pramipexole [Mirapex] 0.5 mg PO HS tab Sennosides-Docusate Sodium [Senokot-S] 2 each PO HS tab Acetaminophen Tab [Tylenol] 650 mg PO Q4HR PRN tab PRN Reason: Fever And/ Or Mild Pain (1-3) Aspirin 81 mg PO DAILY tab Amiodarone [Cordarone] 200 mg PO BID tab bisacodyL [Dulcolax] 10 mg RECTAL DAILY PRN suppositor PRN Reason: Constipation Ipratropium-Albuterol Nebulize [Duoneb 0.5 mg-3 mg/3 ml Soln] 3 ml INHALATION RT-Q2H PRN each PRN Reason: Shortness Of Breath Or Wheezing polyethylene glycoL 3350 [Miralax] 17 gm PO HS PRN packet PRN Reason: Constipation Nystatin 100,000 Unit/ml Susp [Mycostatin Oral Susp] 500,000 unit PO QID ml Pantoprazole [Protonix] 40 mg PO AC-BRKFST tab Continue Vit C/E/Zn/Coppr/Lutein/Zeaxan [Preservision Areds 2 Softgel] 1 cap PO BID L.acidoph,Paracasei, B.lactis [Probiotic] 1 cap PO BID Vitamin D3 40mcg 80 mcg PO BID Magnesium(Unknown Dose) 800 mg PO DIRECTED PRN PRN Reason: deficient Vitamin C 650mg 1 tab PO DAILY Vitamin B-6/B-12(25mg/100mcg) 1 tab PO Q48H Illumineyes 1 tab PO DAILY Furosemide [Lasix] 40 mg PO DAILY PRN PRN Reason: adominal bloating Apixaban [Eliquis] 5 mg PO BID Discontinued lisinopriL [Zestril] 2.5 mg PO DAILY Metoprolol Tartrate [Lopressor] 25 mg PO TID@0800,1600,2300 #180 tab Amiodarone [Cordarone] 100 mg PO AC-LUNCH Discharge Medication List L.acidoph,Paracasei, B.lactis [Probiotic] 1 cap PO BID 04/25/22 [History] Vit C/E/Zn/Coppr/Lutein/Zeaxan [Preservision Areds 2 Softgel] 1 cap PO BID 03/02/23 [History] Illumineyes 1 tab PO DAILY 12/30/23 [History] Magnesium(Unknown Dose) 800 mg PO DIRECTED PRN 12/30/23 [History] Vitamin B-6/B-12(25mg/100mcg) 1 tab PO Q48H 12/30/23 [History] Vitamin C 650mg 1 tab PO DAILY 12/30/23 [History] Vitamin D3 40mcg 80 mcg PO BID 12/30/23 [History] Furosemide [Lasix] 40 mg PO DAILY PRN 02/23/24 [History] Apixaban [Eliquis] 5 mg PO BID 02/27/24 [History] Acetaminophen Tab [Tylenol] 650 mg PO Q4HR PRN tab 05/17/24 [Rx] Amiodarone [Cordarone] 200 mg PO BID tab 05/17/24 [Rx] Aspirin 81 mg PO DAILY tab 05/17/24 [Rx] Fluconazole [Diflucan] 100 mg PO DAILY tab 05/17/24 [Rx] INSULIN LISPRO (HumaLOG) [HumaLOG] 0 unit SQ ACHS each 05/17/24 [Rx] Ipratropium-Albuterol Nebulize [Duoneb 0.5 mg-3 mg/3 ml Soln] 3 ml INHALATION RT-Q2H PRN each 05/17/24 [Rx] Ipratropium-Albuterol Nebulize [Duoneb 0.5 mg-3 mg/3 ml Soln] 3 ml INHALATION RT-QID each 05/17/24 [Rx] Melatonin 6 mg PO HS tab 05/17/24 [Rx] Metoprolol Tartrate [Lopressor] 25 mg PO BID tab 05/17/24 [Rx] Nystatin 100,000 Unit/ml Susp [Mycostatin Oral Susp] 500,000 unit PO QID ml 05/17/24 [Rx] Pantoprazole [Protonix] 40 mg PO AC-BRKFST tab 05/17/24 [Rx] Pramipexole [Mirapex] 0.5 mg PO HS tab 05/17/24 [Rx] Sennosides-Docusate Sodium [Senokot-S] 2 each PO HS tab 05/17/24 [Rx] bisacodyL [Dulcolax] 10 mg RECTAL DAILY PRN suppositor 05/17/24 [Rx] hydrALAZINE HCL [Apresoline] 25 mg PO Q12HR tab 05/17/24 [Rx] polyethylene glycoL 3350 [Miralax] 17 gm PO HS PRN packet 05/17/24 [Rx] Follow up Appointment(s)/Referral(s): Savita Kimbrough MD [STAFF PHYSICIAN] - 1 Week (Please call for appointment upon discharge from rehab) [facility],Cardiac [NON-STAFF] - 4 Weeks (You will receive a phone call in approximately 4-6 weeks for evaluation for cardiac rehab) Gino Thayer DO [Primary Care Provider] - 1 Week (Please call for appointment upon discharge from rehab) Michael Perez MD [STAFF PHYSICIAN] - 1 Week (Please call for appointment upon discharge from rehab) Bautista Hammond MD [STAFF PHYSICIAN] - 06/04/24 10:00 am Maury Barrientos MD [STAFF PHYSICIAN] - 1 Week (Please call for appointment upon discharge from rehab) Activity/Diet/Wound Care/Special Instructions: CONSULTS AT [facility] INPATIENT REHAB;: Dr. Perez for cardiology Dr. Kimbrough for nephrology DISCHARGE INSTRUCTIONS: 1. No driving for 4 weeks, or until physician gives their ok. 2. The patient should sleep in their own bed, no medical bed needed. 3. Stairs are not an issue. If the bedroom is upstairs, it is advised that the patient go up at night and down in the morning for the first week. Go slowly, using handrail and take 1 step at a time. 4. ELADIA hose are to be worn for 30 days post surgery or until physician discontinues. 5. Heart hugger is to be worn 100% of the time until physician disconti nues.(except when showering) 6. No lifting, pushing, or pulling more than 10 pounds for 12 weeks. The physician will advise of any restriction changes. 7. The patient is expected to continue the prescribed walking program. 8. Continue pain control per as needed orders. 9. Continue with incentive spirometry and splinting/heart hugger until otherwise directed by the physician. 10. Must shower daily using liquid antibacterial soap 11. Routine sternal incision care. No powders, lotions, ointments on incisions. No dressings are necessary on incisions unless they are draining. Dermabond tape is to remain on sternal incision until surgeon follow-up. 12. Please call surgeon/INVENTORY ACCOUNTANT for temp greater than 101 F or purulent drainage from incisions. 13. You should weigh yourself daily, record and bring log with you to follow up appointments. 14. All prescriptions given by surgeon for 30 days. Refills need to be filled through rehabilitation services counselor/primary care physician. 15. A Red armband has been placed on the patient. It should be worn for 30 days post discharge from surgery and will be removed by the cardiac surgeons. If an ER visit is necessary, please make sure the number on the Red armband is called before going to ER. 16. You have been referred to and are expected to begin Cardiac Rehab in approximately 4-6 weeks. 17. Quitting smoking is the most important step you can take to improve your health. For additional information and assistance to quit smoking, please call the [place] tobacco quit line (0-550-UWDJ-NOW/ ) or online: [email or web address] [email or web address]/HOME HEALTH SERVICES TO PROVIDE: RN SKILLED HOME CARE SERVICES FOR POST-OP SURGICAL PATIENTS WITH THE FOLLOWING: Coronary Artery Bypass Surgery (CABG), Mitral Valve Replacement/Repair ( MVR), Aortic Valve Replacement/Repair (AVR) RN TO CONTINUE EDUCATION FROM ``ROAD TO A HEALTH HEART PATIENT EDUCATION MANUAL (GIVEN TO PATIENT IN THE HOSPITAL) MEDICATION RECONCILIATION WITH EDUCATION NEEDED ON FIRST HOME VISIT EMPHASIZE IMPORTANCE OF WEARING BREAST SUPPORT/HEART HUGGER ENCOURAGE USE OF INCENTIVE SPIROMETER 10 X EVERY HOUR WHILE AWAKE ENCOURAGE UTILIZATION OF LOWER EXTREMITY COMPRESSION STOCKINGS/ELADIA HOSE and ELEVATE LEGS ABOVE LEVEL OF HEART WHILE AT REST. ENCOURAGE AMBULATION 3-5x/day INCREASING TOLERATES, WHILE AVOIDING EXTREMES IN TEMPERATURE HOME CARE TO VISIT AFTER DISCHARGE FROM REHAB, FREQUENCY: RN TO OPEN THE PATIENT WITHIN 24 HOURS OF DISCHARGE FROM [place]HAB WITH [place] [facility] [place] 2-3 X A WEEK FOR 4 WEEKS ESTABLISHED BY PATIENT NEEDS. LABORATORY: CBC, CMP TO BE DRAWN ON THE THIRD DAY HOME, (RAN STAT) FAX RESULTS TO [phone]. TELEHEALTH PARAMETERS: WEIGHT: NOTIFY MD OF WEIGHT GAIN OF 2 LBS IN 24 HOURS OR 5 LBS IN ONE WEEK HR: NOTIFY MD OF HR <55 BPM OR HR>100 BPM BP: NOTIFY MD IF BP <90/55 OR BP>140/100 O2 SAT: NOTIFY MD IF PO2<93% ON ROOM AIR SEND TELEHEALTH REPORT TO FLOORING MECHANIC AND CARDIOVASCULAR SURGEON THE FIRST WEEK OF CARE AND THEN BI-WEEKLY. PLEASE ADDITIONALLY COMMUNICATE ANY ABNORMALS AND NEW FINDINGS TO THE SURGEONS OFFICE. Discharge Disposition: DC/TRNS INTERMEDIATE CARE FAC
--- NOTE | 2024-05-17 12:55 | P.PN ---
Subjective Progress Note Date: 05/17/24 Principal diagnosis: Aortic stenosis. This is a 67-year-old male patient who is being seen preoperatively as the patient is scheduled to undergo coronary bypass surgery on 05/10/2024. The patient presented with chest pain and an abnormal stress test and he underwent a cardiac catheterization the patient was found to have 99% stenosis involving the LAD and a diagonal branch, and dominant RCA with 60 to 70% mid stenosis and totally occluded distal RCA with collaterals from the septals toward the PDA and PLV. This finding consultation was placed to cardiothoracic surgery for revascularization recommendations. Of note he did have a transthoracic echocardiogram completed revealing reduced left ventricular systolic function with EF 45 to 50%, mild to moderate mitral regurgitation and mild tricuspid regurgitation without pulmonary hypertension, there was no pericardial effusion and the aortic root and proximal ascending aorta more normal size. The patient otherwise doing well. No specific complaints. He is known to have hypertension hyperlipidemia. No respiratory difficulties for now. History of any chest pain for now. The chest x-ray from 05/07/2024 was reviewed and showed no acute cardiopulmonary process. CAT scan of the chest done on 05/06/2024 shows a 2 cm right thyroid nodule. Otherwise, the lungs showed some mild limited and linear scarring and reticulation in the right upper lobe with focal mild linear scarring in the lingula. Otherwise, no other significant abnormalities were noted. Minimal amount of plaques involving the thoracic aorta. The white cell count is at 5.8, he was 12.1 and a platelet count of 411. Normal thyroid function test. Normal UA. proBNP level was 1000. TSH is at 4.12. Good performance status. On 05/09/2024, the patient has no specific complaints and the patient is hemodynamic stable and free of any chest pain. Awaiting surgery for tomorrow. The white cell count of 5.8 with hemoglobin 12.7 and a platelet count of 388. Normal coagulation profile. Normal electrolytes. BUN is 22 with a creatinine of 1.08. LFTs are normal. The patient continues to use incentive spirometer. He is quite active. No cardiac arrhythmias have been noted. Patient was seen today on 05/10/2024, he is status post Triple-vessel coronary artery bypass grafting using the in situ left intramammary artery to the left anterior descending artery, left radial artery from the aorta to the diagonal artery, reverse saphenous vein graft from the aorta to the posterior descending artery, postoperative day #0, patient was seen in the ICU shortly after he arrived, patient is mostly on nitroglycerin drip, 5 mcg/min, patient is intuba gisela and mechanically ventilated, patient is on tidal volume of 500, assist- control rate of 14, FiO2 100%, and PEEP of 5 ABG showed a pO2 of 360 pCO2 37 pH of 7.39. During my evaluation, the patient is awake but seems to be quite anxious, restless, agitated, he was complaining of pain, patient received pain medication, and shortly after we proceeded with trial of weaning with CPAP. Shortly after his weaning parameters were noted, and patient was extubated to a nasal cannula. ABG on CPAP showed a pO2 of 67 pCO2 34 pH of 7.38 and was on 40% FiO2. Cardiac output was 6.5, and his cardiac index was 3.2. Chest x-ray showed postoperative changes, no evidence of active disease. Patient was seen today on 05/11/2024, he is now postoperative day #1. Patient remains in the ICU, he was extubated at 16: 30 5 PM yesterday, he is in sinus rhythm, hemodynamically stable, not requiring any pressors, he is receiving the nitro for vessel spasm prophylaxis. He is on 4 L nasal cannula, does not seem t o be in distress. Not achieving much on his incentive spirometry, no more than 500 cc. Chest x-ray is showing mostly bibasilar atelectasis and postoperative changes. Continues to have his right internal jugular Mecca/Cordis, he has mediastinal right and left pleural chest tubes in place, and no leaks noted. WBC count is 6.1 hemoglobin is 7.1, basic metabolic profile is normal renal profile showed a BUN of 18 creatinine 0.81 Patient was seen today on 05/12/2024, he is now postoperative day #2. Patient went into atrial fibrillation last night, he is now on amiodarone as per protocol. He is resting in a recliner, patient is not in any distress hemodynamically stable, on room air with O2 saturation in the 90s, again he had a brief episode last night with atrial fibrillation treated with IV amiodarone. Today asymptomatic achieving about 1000 cc with his intensive spirometry. Continues to have mediastinal and right and left pleural chest tubes present. Chest x-ray showed mostly atelectasis, and postoperative changes. With some pulmonary vascular congestion. Bilateral chest tubes noted on the chest x-ray, no evidence of pneumothorax. WBC count today is 10.1 hemoglobin 7.1 elect rolytes showed low sodium of 130 electrolytes otherwise are normal BUN is normal creatinine is normal at 0.98 Seen today on 05/13/2024, he is now postoperative day #3, patient seems to be doing fairly well although his chest x-ray is showing atelectasis and possibly a small right-sided pleural effusion, patient is asymptomatic, on room air, O2 sats 96%. Patient is in and out of atrial fibrillation, but hemodynamically stable, denies shortness of breath denies any nausea vomiting abdominal pain, achieving about 1500 cc on his incentive spirometry. Continues to have right- sided chest tube in place. Patient had a total of 250 cc of fluid drained from the right sided chest tube over the last 24 hours, 80 overnight. Seen today on 05/14/2024, patient is now postoperative day #4. Patient has been experiencing paroxysmal atrial fibrillation, his right-sided chest tube was just removed by thoracic surgery. Patient is not in any distress, he is on room air, asymptomatic. Pain seems to be fairly under control. Patient is achieving over 1800 cc on his incentive spirometry, he has been ambulating. He did receive 2 boluses of amiodarone throughout the night because of his atrial fibrillation. Chest x-ray was reviewed mostly postoperative changes, and minimal bibasilar atelectasis, expected. Patient is not requiring any inotropes or any pressors he is hemodynamically stable. Patient was seen today on 05/15/2024, patient is now postoperative day #5, he is doing great. He is in the stepdown unit, sitting at the bedside chair, in no distress, he is alert and oriented x 3, has been ambulating, chest x-ray showed significant improvement in his pleural effusions and atelectasis, he is achieving over 1200 cc up to 1500 cc on his incentive spirometry. Patient is on maximal medical therapy, chest x-ray again is reassuring, hence patient may be considered for discharge today. WBC count is 6.5 hemoglobin 7.1 electrolytes are normal renal profile is normal. Seen today on 05/16/2024, patient is now postoperative day #6. Patient has been doing well, however his chest x-ray today showed a spontaneous left-sided pneumothorax about 20%, and I was notified by Smiley Aviles that Dr. Apple is coming in to place a Thora vent on the left side. This was apparently done prior to me seeing the patient. Postoperative chest x-ray showed adequate placement of the Thora vent and expansion of the left lung without pneumothorax. Clinically the patient continues to do well. He is on room air and not in any distress. Progress note dated May 17, 2024. This is a 79-year-old frail female, postop day #7, status post aortic valve replacement and mitral valve repair. The patient is doing reasonably well. She is on room air. No IV fluids. The patient will likely be discharged to [facility] rehabilitation. Other than feeling mildly short of breath on activity, the patient states that she is doing relatively well. Current laboratory data includes a white count 8, hemoglobin 10.5, macro 34.6, and a normal platelet count of 214,000. Sodium 128, potassium 4.6, chlorides 90, CO2 29, anion gap 9, BUN 80, creatinine 1.42. Glucose is 147. Calcium 8.8. Magnesium was not measured. Total bilirubin was 1.0. Chest x-ray shows mild pulmonary edema and small bilateral pleural effusions. Objective - Vital Signs Vital signs: Vital Signs Temp 97.4 F L 05/17/24 03:11 Pulse 88 05/17/24 11:45 Resp 18 05/17/24 08:21 BP 103/64 05/17/24 08:21 Pulse Ox 94 L 05/17/24 08:21 FiO2 0 05/13/24 12:11 Intake & Output 05/16/24 05/17/24 05/17/24 18:59 06:59 18:59 Intake Total 740 20 0 Output Total 300 200 Balance 740 -280 -200 Weight 56.1 kg Intake: IV 20 20 Invasive Line 6 20 20 Oral 720 0 Output: Urine 300 200 Other: Voiding Method Toilet Toilet # Voids 1 # Bowel Movements 1 2 ABP, PAP, CO, CI - Last Documented Arterial Blood Pressure 106/55 Pulmonary Artery Pressure 39/22 Cardiac Output 2.4 Cardiac Index 1.5 - Exam No acute distress, oriented 3. Currently on room air. HEENT examination is grossly unremarkable. Mucous membranes are moist. No oral lesions. Neck supple. Full range of motion. No adenopathy thyromegaly or neck vein dist ention. Cardiovascular examination reveals regular rhythm rate. S1-S2 normal. No S3 or S4. No discernible murmur noted. Lungs reveal clear breath sounds. Breath sounds are equal bilaterally. No adventitious lung sounds including wheezes rhonchi or crackles. Abdomen soft bowel sounds are heard. No masses or tenderness. Extremities are intact. No cyanosis clubbing or edema. Skin is without rash or lesion. Neurologic examination is brief but nonfocal. - Labs CBC & Chem 7: 05/17/24 06:13 05/17/24 06:13 Labs: Abnormal Lab Results - Last 24 Hours (Table) 05/16/24 05/17/24 05/17/24 Range/Units 20:13 06:13 06:13 RBC 3.28 L (3.80-5.40) m/uL Hgb 10.5 L (11.4-16.0) gm/dL MCV 105.4 H (80.0-100.0) fL MCHC 30.5 L (31.0-37.0) g/dL RDW 20.9 H (11.5-15.5) % Macrocytosis Marked A Sodium 128 L (137-145) mmol/L Chloride 90 L (98-107) mmol/L BUN 80 H (7-17) mg/dL Creatinine 1.42 H (0.52-1.04) mg/dL Glucose 102 H (74-99) mg/dL POC Glucose (mg/dL) 146 H (70-110) mg/dL AST 61 H (14-36) U/L ALT 166 H (4-34) U/L Alkaline Phosphatase 159 H (38-126) U/L Total Protein 5.8 L (6.3-8.2) g/dL Albumin 3.2 L (3.5-5.0) g/dL 05/17/24 Range/Units 11:08 RBC (3.80-5.40) m/uL Hgb (11.4-16.0) gm/dL MCV (80.0-100.0) fL MCHC (31.0-37.0) g/dL RDW (11.5-15.5) % Macrocytosis Sodium (137-145) mmol/L Chloride (98-107) mmol/L BUN (7-17) mg/dL Creatinine (0.52-1.04) mg/dL Glucose (74-99) mg/dL POC Glucose (mg/dL) 147 H (70-110) mg/dL AST (14-36) U/L ALT (4-34) U/L Alkaline Phosphatase (38-126) U/L Total Protein (6.3-8.2) g/dL Albumin (3.5-5.0) g/dL Assessment and Plan Assessment: Postoperative day #14, S/P aortic valve replacement, and mitral valve repair. Severe aortic valve regurgitation. Moderate mitral valve regurgitation. Mild to moderate tricuspid valve regurgitation. Mild pulmonary hypertension. Routine postoperative ventilator management. Postoperative blood loss anemia and thrombocytopenia. Hypervolemic hyponatremia. Congestive hepatopathy. History of chronic heart failure with an ejection fraction of 40%. History of hypertension. Chronic kidney disease, stage III. Iron deficiency anemia. Paroxysmal atrial fibrillation with cardioversion, 2023. Status post permanent dual chamber pacemaker insertion. History of embolic stroke, 2016. Mild/moderate lung disease, with an FEV1 that 73% of predicted. Lifelong non-smoker. Status post left-sided thoracentesis, May 10, 2024. Plan: Plan dated May 17, 2024. The patient is currently doing reasonably well. She is on room air. No IV fluids. The patient is postoperative day #14, status post aortic valve replacement and mitral valve repair. The patient has significant valvular heart disease, and cardiomyopathy, with an ejection fraction of 40%. Labs, x-rays, and all medications are reviewed. The patient remains a full code. The patient apparently will be discharged to inpatient rehabilitation. We will continue to follow. Prognosis is guarded. Dictation was produced using [employer] software. Please excuse any grammatical, word or spelling errors. Time with Patient: Less than 30
--- NOTE | 2024-05-17 13:32 | P.PN ---
Subjective Progress Note Date: 05/17/24 Principal diagnosis: Reason for follow-up is leukocytosis/UTI Patient is a 79-year-old female with a past medical history significant for Atrial Fibrillation, Heart Failure, CVA/TIA, Eye Disorder, Hearing Disorder / Deafness, Hyperlipidemia, Hypertension, Osteoarthritis (OA), Renal Disease, Skin Disorder electively admitted to the hospital after the patient did have aortic valve replacement mitral valve repair, did have urinary symptoms of burning positive UA concerning for UTI elevated white count prompted this consultation. On today's evaluation that is 05/17/2024, patient has been afebrile, patient is breathing comfortably and is currently on room air, patient denies having any significant cough no chest pain, patient denies nausea vomiting and no abdominal pain, still complaining of some Issues with the constipation and mention improvement in her sore throat. Patient white count is 8.0, creat is 1.42 Objective - Vital Signs Vital signs: Vital Signs Temp 97.4 F L 05/17/24 03:11 Pulse 88 05/17/24 11:45 Resp 18 05/17/24 08:21 BP 103/64 05/17/24 08:21 Pulse Ox 94 L 05/17/24 08:21 FiO2 0 05/13/24 12:11 Intake & Output 05/16/24 05/17/24 05/17/24 18:59 06:59 18:59 Intake Total 740 20 10 Output Total 300 200 Balance 740 -280 -190 Weight 56.1 kg Intake: IV 20 20 10 Invasive Line 6 20 20 10 Oral 720 0 Output: Urine 300 200 Other: Voiding Method Toilet Toilet # Voids 1 # Bowel Movements 1 2 ABP, PAP, CO, CI - Last Documented Arterial Blood Pressure 106/55 Pulmonary Artery Pressure 39/22 Cardiac Output 2.4 Cardiac Index 1.5 - Exam GENERAL DESCRIPTION: An elderly female up in the chair in no distress RESPIRATORY SYSTEM: Unlabored breathing , decreased breath sounds at bases HEART: S1 S2 regular rate and rhythm , ABDOMEN: Soft , no tenderness EXTREMITIES: No edema feet - Labs CBC & Chem 7: 05/17/24 06:13 05/17/24 06:13 Labs: Abnormal Lab Results - Last 24 Hours (Table) 05/16/24 05/17/24 05/17/24 Range/Units 20:13 06:13 06:13 RBC 3.28 L (3.80-5.40) m/uL Hgb 10.5 L (11.4-16.0) gm/dL MCV 105.4 H (80.0-100.0) fL MCHC 30.5 L (31.0-37.0) g/dL RDW 20.9 H (11.5-15.5) % Macrocytosis Marked A Sodium 128 L (137-145) mmol/L Chloride 90 L (98-107) mmol/L BUN 80 H (7-17) mg/dL Creatinine 1.42 H (0.52-1.04) mg/dL Glucose 102 H (74-99) mg/dL POC Glucose (mg/dL) 146 H (70-110) mg/dL AST 61 H (14-36) U/L ALT 166 H (4-34) U/L Alkaline Phosphatase 159 H (38-126) U/L Total Protein 5.8 L (6.3-8.2) g/dL Albumin 3.2 L (3.5-5.0) g/dL 05/17/24 Range/Units 11:08 RBC (3.80-5.40) m/uL Hgb (11.4-16.0) gm/dL MCV (80.0-100.0) fL MCHC (31.0-37.0) g/dL RDW (11.5-15.5) % Macrocytosis Sodium (137-145) mmol/L Chloride (98-107) mmol/L BUN (7-17) mg/dL Creatinine (0.52-1.04) mg/dL Glucose (74-99) mg/dL POC Glucose (mg/dL) 147 H (70-110) mg/dL AST (14-36) U/L ALT (4-34) U/L Alkaline Phosphatase (38-126) U/L Total Protein (6.3-8.2) g/dL Albumin (3.5-5.0) g/dL Assessment and Plan (1) Leukocytosis Current Visit: Yes Status: Acute Code(s): D72.829 - ELEVATED WHITE BLOOD CELL COUNT, UNSPECIFIED SNOMED Code(s): 063365563 (2) UTI (urinary tract infection) Current Visit: Yes Status: Acute Code(s): N39.0 - URINARY TRACT INFECTION, SITE NOT SPECIFIED SNOMED Code(s): 04213632 (3) Thrush Current Visit: Yes Status: Acute Code(s): B37.0 - CANDIDAL STOMATITIS SNOMED Code(s): 05927377 Plan: 1patient with elevated white count in this patient electively admitted to hospital and is status post aortic valve replacement and mitral valve repair she did have urinary catheter postsurgery which has been discontinued yesterday now with cloudy urine difficulty urination ID clinic suspicious for urinary source to be responsible for this elevated white count and need to be treated aggressively with recent cardiac procedure 2-patient did have a positive UA blood however urine culture negative cefepime was discontinued 3-patient is afebrile and white count has normalized, plan is for short course of nystatin swish and swallow and Diflucan on discharge Dictation was produced using [employer] dictation software. please excuse any grammatical, word or spelling errors. Time with Patient: Less than 30
--- NOTE | 2024-05-17 13:41 | CDI ---
Date: 05/17/2024 From: Rekha [email or web address] Email: [email or web address] Admit Date: 05/03/2024 05:37:00 AM Patient Name: Jenise Kent Visit Number: [id number] Discharge Date: N/A ATTENTION: The Clinical Documentation Specialists (CDI) and [facility] Coding Staff appreciate your assistance in clarifying documentation. Please respond to the clarification below the line at the bottom and electronically sign. The CDI & [facility] Coding staff will review the response and follow-up if needed. Please note: Queries are made part of the Legal Health Record. If you have any questions, please contact the author of this message via ITS. Dr. Charlotte Hernandez, Acute UTI with cystitis secondary to indwelling Palacios catheter is documented in the Physical Medicine & Rehab Progress Note on 05/17/2024. Additional clarification is requested. Patient history/risk factors: 79-year-old female presented to [facility] for elective aortic valve replacement and mitral valve repair. PMH: Stage 3a chronic kidney disease, hypertension, chronic systolic heart failure Clinical Indicators: Documentation Location: Electronic Medical Record Urine Culture (Collected 05/10/2024): 10,000 49,000 CFU/mL Apparent skin and/or genital ap Urinalysis (Collected 05/10/2024): Large Leukocyte Esterase, Many Bacteria, > 182 WBC, Cloudy Appearance, Large Blood Infectious Disease Progress Note (05/16/2024): o Patient did have a positive UA blood however urine culture negative Cefepime was discontinued o She did have urinary catheter post-surgery which has been discontinued yesterday. Now with cloudy urine, difficulty urination. ID clinic suspicious for urinary source to be responsible for this elevated white count o Patient is afebrile and white count has normalized o Thrush Physical Medicine & Rehab Progress Note (05/18/2023): "Acute UTI with cystitis 2' indwelling Palacios catheter" Treatment: Infectious Disease Consultation Cefepime 1g IVPB Every 12 Hours (Initiated 05/10/2024 Discontinued 05/14/2024) Can you please clarify the status of the urinary tract infection, if known? [x ] Patient received empiric treatment only (urinary tract infection not confirmed) [ ] Urinary tract infection secondary to indwelling Palacios catheter, not present on admission [ ] Other, please specify [ ] Unable to determine MTDD
== END 2024-05-17 14:22 | DRG 219 ==
LOC: 2ORMAIN 05:37 → 2SICU 13:51 → 3SCARD 05-13 19:40
PROVIDERS: ADMIT Surgery; ATTEND Surgery
PROC: B24BZZ4 Ultrasonography of Heart with Aorta, Transesophageal (ICD-10-PCS; 2024-05-03)
PROC: 5A1221Z Performance of Cardiac Output, Continuous (ICD-10-PCS; 2024-05-03)
PROC: 30233H0 Transfusion of Autologous Whole Blood into Peripheral Vein, Percutaneous Approach (ICD-10-PCS; 2024-05-03)
PROC: 3E033RZ Introduction of Antiarrhythmic into Peripheral Vein, Percutaneous Approach (ICD-10-PCS; 2024-05-03)
PROC: 30233J1 Transfusion of Nonautologous Serum Albumin into Peripheral Vein, Percutaneous Approach (ICD-10-PCS; 2024-05-03)
PROC: 3E033XZ Introduction of Vasopressor into Peripheral Vein, Percutaneous Approach (ICD-10-PCS; 2024-05-03)
PROC: 02RF08Z Replacement of Aortic Valve with Zooplastic Tissue, Open Approach (ICD-10-PCS; principal; 2024-05-03 08:00)
PROC: 02UG0JZ Supplement Mitral Valve with Synthetic Substitute, Open Approach (ICD-10-PCS; 2024-05-03 08:00)
PROC: 02L70CK Occlusion of Left Atrial Appendage with Extraluminal Device, Open Approach (ICD-10-PCS; 2024-05-03 08:00)
PROC: 0W9B3ZX Drainage of Left Pleural Cavity, Percutaneous Approach, Diagnostic (ICD-10-PCS; 2024-05-10)
DX: I08.3 Combined rheumatic disorders of mitral, aortic and tricuspid valves (principal); Z00.6 Encounter for examination for normal comparison and control in clinical research program; I50.23 Acute on chronic systolic (congestive) heart failure; J96.01 Acute respiratory failure with hypoxia; N17.0 Acute kidney failure with tubular necrosis; B37.0 Candidal stomatitis; J91.8 Pleural effusion in other conditions classified elsewhere; E87.1 Hypo-osmolality and hyponatremia; J93.83 Other pneumothorax; E88.09 Other disorders of plasma-protein metabolism, not elsewhere classified; I27.29 Other secondary pulmonary hypertension; D69.59 Other secondary thrombocytopenia; I13.0 Hypertensive heart and chronic kidney disease with heart failure and stage 1 through stage 4 chronic kidney disease, or unspecified chronic kidney disease; N18.31 Chronic kidney disease, stage 3a; I77.819 Aortic ectasia, unspecified site; G25.81 Restless legs syndrome; E04.1 Nontoxic single thyroid nodule; K76.1 Chronic passive congestion of liver; D50.9 Iron deficiency anemia, unspecified; I42.8 Other cardiomyopathies; I48.19 Other persistent atrial fibrillation; Q26.1 Persistent left superior vena cava; B17.9 Acute viral hepatitis, unspecified; D62 Acute posthemorrhagic anemia; I49.5 Sick sinus syndrome; I70.0 Atherosclerosis of aorta; M81.0 Age-related osteoporosis without current pathological fracture; H35.30 Unspecified macular degeneration; H91.93 Unspecified hearing loss, bilateral; I95.9 Hypotension, unspecified; E87.5 Hyperkalemia; T50.1X5A Adverse effect of loop [high-ceiling] diuretics, initial encounter; Z74.1 Need for assistance with personal care; J98.4 Other disorders of lung; D72.829 Elevated white blood cell count, unspecified; K59.00 Constipation, unspecified; R26.2 Difficulty in walking, not elsewhere classified; R54 Age-related physical debility; N28.9 Disorder of kidney and ureter, unspecified; I25.10 Atherosclerotic heart disease of native coronary artery without angina pectoris; I25.82 Chronic total occlusion of coronary artery; E78.5 Hyperlipidemia, unspecified; R45.1 Restlessness and agitation; Z79.01 Long term (current) use of anticoagulants; Z79.899 Other long term (current) drug therapy; Z95.1 Presence of aortocoronary bypass graft; Z86.73 Personal history of transient ischemic attack (TIA), and cerebral infarction without residual deficits; Z95.0 Presence of cardiac pacemaker; Z86.018 Personal history of other benign neoplasm; Z97.4 Presence of external hearing-aid; Z86.16 Personal history of COVID-19; Z82.49 Family history of ischemic heart disease and other diseases of the circulatory system
CPT/HCPCS: 36600; 71045; 71046; 76604; 80048; 80053; 81001; 82330; 82728; 82805; 83540; 83550; 83735; 83930; 83935; 84132; 84145; 84295; 84300; 84443; 85025; 85027; 85384; 85610; 85730; 86140; 86850; 86891; 86900; 86901; 86920; 87040; 87086; 88305; 88311; 93306; 94640; 94760

== ENCOUNTER 2024-06-10 12:48 | Day surgery (SDC) | payer MEDICARE, BC ==
[2024-06-10] MEDS ORDERED: LACTATED RINGERS 1,000 ML IV SCH (13:12)
[2024-06-10 13:23] VITALS: TEMP 97
--- NOTE | 2024-06-10 13:54 | P.PCN ---
Date of Procedure: 06/10/24 Preoperative Diagnosis: left sided pleural effusion Postoperative Diagnosis: same Procedure(s) Performed: thoracentesis, left Anesthesia: local Surgeon: Maury Barrientos Estimated Blood Loss (ml): 0 Pathology: other Condition: stable Disposition: same day Description of Procedure: A time out was performed and the chest x-ray was reviewed, the appropriate side was confirmed and marked. My hands were washed immediately prior to the procedure. I wore a surgical cap, mask with protective eyewear, sterile gown and sterile gloves throughout the procedure. The patient was prepped and draped in a sterile manner using chlorhexidine scrub after the appropriate level was percussed and confirmed by ultrasound. 1% lidocaine was used to anesthesize the skin, subcutaneous tissue, superior aspect of the rib periosteum and parietal pleura. A finder needle was then introduced over the superior aspect of the rib to locate the pleural fluid; 2colored fluid was aspirated at a depth of approximately 2 cm. A 10-blade scalpel was used to omar the skin at the insertion site. The Fylw-o-Kniawlym needle was then introduced through the skin incision into the pleural space using negative aspiration pressure and the red colometric indicator to confirm appropriate positioning of the needle. The thoracentesis catheter was then threaded without difficulty. 1300 ml of turbid colored fluid was removed without difficulty. The catheter was then removed. No immediate complications were noted during the procedure. A post-procedure chest x-ray is pending at the time of this note. The fluid will be sent for studies. Estimated blood loss is 0cc
[2024-06-10 14:25] VITALS: RESP 18
--- NOTE | 2024-06-10 14:29 | XR ---
EXAMINATION TYPE: XR chest 1V DATE OF EXAM: 06/10/2024 COMPARISON: 06/07/2024 CLINICAL INDICATION: Female, 79 years old with history of post thoracentesis; TECHNIQUE: Single frontal view of the chest is obtained. FINDINGS: Interval drainage of the previous left pleural effusion. No appreciable pneumothorax. Prom inent patchy opacity remains at the left lower lung. There is additional patchy change at the right u pper lung and trace right pleural effusion which remains. Median sternotomy wires and prosthetic aort ic valve. Left anterior chest wall pacemaker generator with right atrial and right ventricular leads. Heart remains mildly enlarged. IMPRESSION: 1. Interval drainage of left-sided pleural fluid. The majority of the fluid appears to have been evac uated. No appreciable pneumothorax. 2. Residual prominent patchy opacity at the left lower lung, probably atelectasis. 3. However, there is interstitial and patchy density elsewhere within the lungs, unable to exclude un derlying pneumonitis or patchy pulmonary edema. A trace right pleural effusion also remains. [facility], , 06/10/2024 2:26 PM
[2024-06-10 14:45] VITALS: BP 99/67; PULSE 71
[2024-06-10 19:17] LABS: Glucose, BF Source Pleural Fluid; Glucose, Body Fluid 135 mg/dL; LDH, Body Fluid Source Pleural Fluid
[2024-06-10 21:35] LABS: Appearance,BF Bloody (Clear)
== END 2024-06-10 14:49 | disposition home or self-care (01) ==
LOC: ORWHC2ENDO 12:48
PROVIDERS: ATTEND Internal Medicine Critical Care Medicine
DX: J90 Pleural effusion, not elsewhere classified (principal); I11.0 Hypertensive heart disease with heart failure; I50.22 Chronic systolic (congestive) heart failure; I48.20 Chronic atrial fibrillation, unspecified; E78.5 Hyperlipidemia, unspecified; K57.90 Diverticulosis of intestine, part unspecified, without perforation or abscess without bleeding; I49.5 Sick sinus syndrome; H35.3121 Nonexudative age-related macular degeneration, left eye, early dry stage; N17.9 Acute kidney failure, unspecified; Z79.82 Long term (current) use of aspirin; Z79.899 Other long term (current) drug therapy; Z79.01 Long term (current) use of anticoagulants; Z95.2 Presence of prosthetic heart valve; Z98.890 Other specified postprocedural states; Z86.73 Personal history of transient ischemic attack (TIA), and cerebral infarction without residual deficits
CPT/HCPCS: 32554; 71045; 82945; 83615; 87070; 87205; 88108; 89050

== ENCOUNTER 2024-06-22 11:13 | Inpatient (IN) | payer MEDICARE, BC ==
[2024-06-22 14:27] LABS: Basophils # (A) 0.02 10*3/uL (0.00-0.10); Basophils % (A) 0.4 %; Eosinophils # (A) 0.02 10*3/uL (0.04-0.35); Eosinophils % (A) 0.4 %; HCT 39.6 % (37.2-46.3); HGB 12.8 g/dL (12.0-15.0); Lymphocytes # (A) 0.38 10*3/uL (0.90-5.00); Lymphocytes % (A) 7.1 %; MCH 30.5 pg (27.0-32.0); MCHC 32.3 g/dL (32.0-37.0); MCV 94.5 fL (80.0-97.0); Mean Platelet Volume 10.6 fL (9.5-12.2); Monocytes # (A) 0.24 10*3/uL (0.20-1.00); Monocytes % (A) 4.5 %; Neutrophils # (A) 4.72 10*3/uL (1.80-7.70); Neutrophils % (A) 87.4 %; Platelet Count 169 10*3/uL (140-440); RBC 4.19 10*6/uL (4.10-5.20); RDW 16.6 % (11.5-14.5); WBC 5.39 10*3/uL (4.50-10.00)
[2024-06-22 14:39] LABS: INR 1.5 (<1.2); Partial Thromboplastin Time 29.9 sec (22.0-30.0); Prothrombin Time 15.9 sec (10.0-12.5)
[2024-06-22 14:45] LABS: ALT 39 U/L (4-34); African American GFR (CKD) 67 (>60 ml/min/1.73 sqM); Albumin 3.5 g/dL (3.5-5.0); Anion Gap 13 mmol/L; Blood Urea Nitrogen 44 mg/dL (7-17); Calcium 9.5 mg/dL (8.4-10.2); Carbon Dioxide 24 mmol/L (22-30); Chloride 102 mmol/L (98-107); Glucose 82 mg/dL (74-99); Non-African American GFR(CKD) 58 (>60 ml/min/1.73 sqM); Sodium 139 mmol/L (137-145); Total Bilirubin 0.9 mg/dL (0.2-1.3); Total Protein 6.9 g/dL (6.3-8.2)
--- NOTE | 2024-06-22 14:45 | XR ---
EXAMINATION TYPE: XR chest 2V DATE OF EXAM: 06/22/2024 2:33 PM COMPARISON: 06/10/2024 CLINICAL INDICATION: Female, 79 years old with history of difficulty breathing: Shortness of breath TECHNIQUE: XR chest 2V views of the chest are obtained. FINDINGS: Scattered senescent parenchymal changes noted. Hyperinflation compatible with COPD. Right upper lobe infiltrate. Increased opacity left lower lobe could reflect underlying atelectasis a nd/or infiltrate. Small effusions noted. Persistent cardiomegaly with pulmonary venous congestion. No overt congestive failure seen at this ti me. Mediastinal structures are stable and grossly unremarkable. No evidence for hilar prominence. Degenerative changes dorsal spine. IMPRESSION: 1. Right upper lobe infiltrate. Increased opacity left lower lobe could reflect underlying atelectasi s and/or infiltrate. Small effusions noted. [facility], , 06/22/2024 2:42 PM
[2024-06-22 14:52] LABS: NT-Pro-B-Type Natriuretic Pept 4110 pg/mL
[2024-06-22 14:53] LABS: AST 49 U/L (14-36); Alkaline Phosphatase 191 U/L (38-126); Magnesium 2.1 mg/dL (1.6-2.3); Potassium 4.2 mmol/L (3.5-5.1)
[2024-06-22] MEDS: FUROSEMIDE 10 MG/ML 4 ML VIAL IV STA (15:16)
[2024-06-22] MEDS ORDERED: NALOXONE 0.4 MG/ML 1 ML VIAL IV PRN ×2 (15:20→15:23)
--- NOTE | 2024-06-22 15:20 | ED ---
General Adult HPI - General Chief complaint: Shortness of Breath Stated complaint: SOB Time Seen by Provider: 06/22/24 13:20 Source: patient, RN notes reviewed, old records reviewed Limitations: no limitations - History of Present Illness Initial comments: Patient is a 79-year-old female sent in by Dr. Mims admission for volume overload state. Has a history of CHF, aortic valve and mitral valve surgery, atrial fibrillation, hypertension, hyperlipidemia. Patient had aortic valve replacement as well as mitral valve repair April 2024. Had recent thoracentesis but has since reaccumulated. Presents for volume overload state. Has noticed worsening lower extremity edema, shortness of breath, orthopnea. Nonproductive cough. No fevers or chills. No chest pain. Presents for admission to hospital for evaluation by cardiology and pulmonology. She also has a history of CKD. Has no other acute complaints at this time other than the shortness of breath which has been progressive. - Related Data Home Medications Medication Instructions Recorded Confirmed L.acidoph,Paracasei, B.lactis 1 cap PO BID 04/25/22 06/22/24 [Probiotic] Vit C/E/Zn/Coppr/Lutein/Zeaxan 1 cap PO BID 04/25/22 06/22/24 [Preservision Areds 2 Softgel] Illumineyes 1 tab PO DAILY 12/30/23 06/22/24 Vitamin C 650mg 1 tab PO DAILY 12/30/23 06/22/24 Apixaban [Eliquis] 5 mg PO BID 02/27/24 06/22/24 Amiodarone [Cordarone] 200 mg PO DAILY 06/22/24 06/22/24 Furosemide [Lasix] 20 mg PO BID 06/22/24 06/22/24 Magnesium Oxide [Mag-Ox] 400 mg PO DAILY PRN 06/22/24 06/22/24 hydrALAZINE HCL [Apresoline] 25 mg PO TID 06/22/24 06/22/24 Previous Rx's Medication Instructions Recorded Acetaminophen Tab [Tylenol] 650 mg PO Q4HR PRN tab 05/17/24 Aspirin 81 mg PO DAILY tab 05/17/24 Metoprolol Tartrate [Lopressor] 25 mg PO BID tab 05/17/24 Pramipexole [Mirapex] 0.5 mg PO HS tab 05/17/24 Allergies Allergy/AdvReac Type Severity Reaction Status Date / Time strawberry Allergy Itching Verified 06/22/24 13:53 mold AdvReac sinuses Verified 06/22/24 13:53 [id number]-[id number] Reductase AdvReac muscle Verified 06/22/24 13:53 Inhibitor aches and lethargy wheat AdvReac stomach Verified 06/22/24 13:53 bloats and lack of energy Yeast AdvReac sore Verified 06/22/24 13:53 throat,sinuses fungus AdvReac sinuses Uncoded 06/22/24 13:53 Review of Systems ROS Statement: Those systems with pertinent positive or pertinent negative responses have been documented in the HPI. Review of Systems: CONST: Denies fever EYES: Denies blurry vision ENT: Denies nasal congestion C/V: Denies Chest pain RESP: Endorses exertional shortness of breath GI: Denies abdominal pain : Denies dysuria SKIN: Denies rash. MSK: Denies joint pain. NEURO: Denies headache ROS Other: All systems not noted in ROS Statement are negative. Past Medical History Past Medical History: Atrial Fibrillation, Heart Failure, CVA/TIA, Eye Disorder, Hearing Disorder / Deafness, Hyperlipidemia, Hypertension, Osteoarthritis (OA), Renal Disease, Skin Disorder Additional Past Medical History / Comment(s): SOB in the evening and through the night. Tinnitus, bilateral hearing aid use. Diverticular disease, hemorrhoids. Hx kidney stones. Anemia. 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 Stage 3A kidney disease. Macular degeneration left eye. Small hiatal hernia. History of Any Multi-Drug Resistant Organisms: None Reported Past Surgical History: Adenoidectomy, Appendectomy, Section, Coronary Bypass/CABG, Pacemaker, Tonsillectomy Additional Past Surgical History / Comment(s): SINUS SURGERY, section X3, CHRISTY, colonoscopy. 05/03/24 valve repair and replacement, Past Anesthesia/Blood Transfusion Reactions: No Reported Reaction Additional Past Anesthesia/Blood Transfusion Reaction / Comment(s): Hx blood transfusion with no issues 50 yrs ago. Type of Cardiac Device: Permanent Pacemaker Device Placement Date:: 01/2017 Left chest Past Psychological History: Anxiety, Depression Smoking Status: Never smoker - Past Family History Sister(s) Family Medical History: Cancer Brother(s) Family Medical History: Cancer, Coronary Artery Disease (CAD) Father Family Medical History: Cancer Additional Family Medical History / Comment(s): Prostate cancer with mets to bones, colon. Mother Family Medical History: Renal Disease Additional Family Medical History / Comment(s): kidney disease General Exam - General Exam Comments Initial Comments: General: Appears in no acute distress. HEAD: Normal with no signs of head trauma. EYES: EOMI ENT: Hearing grossly intact, normal oropharynx. RESPIRATORY: Reduced breath sounds in the left inferior lobe suspicious of pleural effusion. No gross wheezing. No hypoxia. C/V: Regular rate and rhythm. S1 and S2 auscultated, symmetrical pitting edema, peripheral pulses 2+ and intact throughout ABD: Abd is soft, nontender, nondistended EXT: Normal range of motion, no obvious deformity SKIN: No rashes or lesions observed on exposed skin. NEURO: Alert and oriented x 4. Limitations: no limitations Course Vital Signs 06/22/24 11:17 Temperature 98.1 F Pulse Rate 80 Respiratory 18 Rate Blood Pressure 114/76 O2 Sat by Pulse 95 Oximetry Medical Decision Making - Medical Decision Making Was pt. sent in by a medical professional or institution (, PA, RESIDENT SURGEON, urgent care, hospital, or fci...) When possible be specific @ -No Did you speak to anyone other than the patient for history (EMS, parent, family, police, friend...)? What history was obtained from this source @ -No Did you review nursing and triage notes (agree or disagree)? Why? @ -I reviewed and agree with nursing and triage notes Were old charts reviewed (outside hosp., previous admission, EMS record, old EKG, old radiological studies, urgent care reports/EKG's, fci records)? Report findings @ -Reviewed old charts including the paperwork from Dr. Lerma's office recommending admission. Patient had mitral valve repair with aortic valve replacement in April 2024. Differential Diagnosis (chest pain, altered mental status, abdominal pain women, abdominal pain men, vaginal bleeding, weakness, fever, dyspnea, syncope, headache, dizziness, GI bleed, back pain, seizure, CVA, palpatations, mental health, musculoskeletal)? @ -Differential Dyspnea: Coronary syndrome, arrhythmia, tamponade, asthma, COPD, pulmonary embolism, pneumonia, pneumothorax, pulmonary effusion, anaphylaxis, diabetic ketoacidosis, flailed chest, pulmonary contusion, diaphragmatic rupture, anemia, neuromuscular, this is not meant to be an all-inclusive list. EKG interpreted by me (3pts min.). @ -As above X-rays interpreted by me (1pt min.). @ -Chest x-ray shows left-sided pleural effusion as well as pulmonary vascular congestion concerning for CHF. Radiology called that his infiltrate but it appears more as CHF. The findings are consistent with previous chest x-rays. Low suspicion for acute infection. CT interpreted by me (1pt min.). @ -None done U/S interpreted by me (1pt. min.). @ -None done What testing was considered but not performed or refused? (CT, X-rays, U/S, labs)? Why? @ -None What meds were considered but not given or refused? Why? @ -None Did you discuss the management of the patient with other professionals (professionals i.e. , PA, RESIDENT SURGEON, lab, RT, psych nurse, social media marketer, religious assistant, teacher, cavalry officer, director of casework department)? Give summary @ -Discussed with the admitting provider, Dr. Holland who accepted the admission. Was smoking cessation discussed for >3mins.? @ -No Was critical care preformed (if so, how long)? @ -No Were there social determinants of health that impacted care today? How? (Homelessness, low income, unemployed, alcoholism, drug addiction, transportation, low edu. Level, literacy, decrease access to med. care, long-term, rehab)? @ -No Was there de-escalation of care discussed even if they declined (Discuss DNR or withdrawal of care, Hospice)? DNR status @ -No What co-morbidities impacted this encounter? (DM, HTN, Smoking, COPD, CAD, Cancer, CVA, ARF, Chemo, Hep., AIDS, mental health diagnosis, sleep apnea, mor bid obesity)? @ -Atrial fibrillation, CHF, pleural effusion, recent mitral valve repair and aortic valve replacement Was patient admitted / discharged? Hospital course, mention meds given and route, prescriptions, significant lab abnormalities, going to OR and other pertinent info. @ -Based on patient's presentation. Physical exam, presents with volume overload state. Vitals are within acceptable limits. She is on oral Lasix but we will obtain basic labs, BNP, chest x-ray. Patient will likely be initiated on IV Lasix and admitted to the hospital with cardiology consult. We also consult cardiothoracic surgery as well as pulmonology. She was in agreement this plan. EKG shows no signs of acute ischemia. Laboratory studies remarkable for BNP of 4100. Chest x-ray shows the left-sided pleural effusion with chronic findings otherwise on chest x-ray. Radiology was concerned for possible infiltrate however if you look back to chest x-rays throughout the month, these findings are chronic and unlikely to be infectious in nature considering she has no symptoms concerning for pneumonia. Seems to be more of a volume overload CHF state. Updated the patient. She will be admitted on IV Lasix. She was in agreement this plan. I spoke with Dr. Holland who accepted the admission. Consults placed to pulmonology, cardiothoracic surgery, cardiology. Undiagnosed new problem with uncertain prognosis? @ -No Drug Therapy requiring intensive monitoring for toxicity (Heparin, Nitro, Ins ulin, Cardizem)? @ -No Were any procedures done? @ -No Diagnosis/symptom? @ -CHF, pleural effusion Acute, or Chronic, or Acute on Chronic? @ -Acute Uncomplicated (without systemic symptoms) or Complicated (systemic symptoms)? @ -Complicated Side effects of treatment? @ -No Exacerbation, Progression, or Severe Exacerbation? @ -No Poses a threat to life or bodily function? How? (Chest pain, [place], [place], pneumonia, PE, COPD, DKA, ARF, appy, cholecystitis, CVA, Diverticulitis, Homicidal, Suicidal, threat to staff... and all critical care pts) @ -Yes - Lab Data Result diagrams: 06/22/24 14:19 06/22/24 14:19 Lab Results 06/22/24 06/22/24 06/22/24 Range/Units 14:19 14:19 14:19 WBC 5.39 (4.50-10.00) 10*3/uL RBC 4.19 (4.10-5.20) 10*6/uL Hgb 12.8 (12.0-15.0) g/dL Hct 39.6 (37.2-46.3) % MCV 94.5 (80.0-97.0) fL MCH 30.5 (27.0-32.0) pg MCHC 32.3 (32.0-37.0) g/dL Plt Count 169 (140-440) 10*3/uL MPV 10.6 (9.5-12.2) fL Immature Gran % (Auto) 0.2 % Neutrophils % 87.4 % Lymphocytes % 7.1 % Monocytes % 4.5 % Eosinophils % 0.4 % Basophils % 0.4 % Immature Gran # 0.01 (0.00-0.04) 10*3/uL Neutrophils # 4.72 (1.80-7.70) 10*3/uL Lymphocytes # 0.38 L (0.90-5.00) 10*3/uL Monocytes # 0.24 (0.20-1.00) 10*3/uL Eosinophils # 0.02 L (0.04-0.35) 10*3/uL Basophils # 0.02 (0.00-0.10) 10*3/uL PT 15.9 H (10.0-12.5) sec INR 1.5 H (<1.2) APTT 29.9 (22.0-30.0) sec Sodium 139 (137-145) mmol/L Potassium 4.2 (3.5-5.1) mmol/L Chloride 102 (98-107) mmol/L Carbon Dioxide 24 (22-30) mmol/L Anion Gap 13 mmol/L BUN 44 H (7-17) mg/dL Creatinine 0.95 (0.52-1.04) mg/dL Est GFR (CKD-EPI)AfAm 67 (>60 ml/min/1.73 sqM) Est GFR (CKD-EPI)NonAf 58 (>60 ml/min/1.73 sqM) Glucose 82 (74-99) mg/dL Calcium 9.5 (8.4-10.2) mg/dL Magnesium 2.1 (1.6-2.3) mg/dL Total Bilirubin 0.9 (0.2-1.3) mg/dL AST 49 H (14-36) U/L ALT 39 H (4-34) U/L Alkaline Phosphatase 191 H (38-126) U/L NT-Pro-B Natriuret Pep 4110 pg/mL Total Protein 6.9 (6.3-8.2) g/dL Albumin 3.5 (3.5-5.0) g/dL - EKG Data -: EKG Interpreted by Me EKG Comments: 12-lead Electrocardiogram Interpretation Note EKG was reviewed and interpreted by myself. 12-lead ECG performed at 1327 is interpreted by me as revealing paced rhythm at a rate of 70 beats per minute. Left axis deviation. CA interval is 273 ms, QRS durations 136 ms, QTc is 506 ms.. There were no ST or T wave abnormalities to suggest myocardial ischemia or injury. R wave progression across the precordium was satisfactory. By my interpretation this EKG is non-diagnostic for acute ischemia. Disposition Clinical Impression: CHF (congestive heart failure), Pleural effusion Disposition: ADMITTED IP TO THIS HOSP Condition: Stable Referrals: Gino Thayer DO [Primary Care Provider] - 1-2 days Time of Disposition: 15:15
[2024-06-22] MEDS: hydrALAZINE HCL 25 MG TAB PO SCH (17:04)
[2024-06-22] MEDS: FUROSEMIDE 10 MG/ML 4 ML VIAL IV SCH ×2 (20:27→21:43)
[2024-06-22] MEDS: APIXABAN 5 MG TAB PO SCH (20:32)
[2024-06-22] MEDS: METOPROLOL TARTRATE 25 MG TAB PO SCH (20:36)
--- NOTE | 2024-06-22 21:41 | P.HPIM ---
History of Present Illness H&P Date: 06/22/24 Chief Complaint: Short of breath pleasant 79 year-old patient, follows with Dr. Thayer. Medical history includes atrial fibrillation, hard of hearing, hypertension osteoarthritis kidney disease, tinnitus diverticulosis kidney stones tachybradycardia syndrome stage IIIa kidney disease follows with Dr. Kimbrough macular degeneration. May 21, 2024 underwent arctic valve replacement with a bioprosthesis, mitral valve repair with annuloplasty, exclusion of left atrial appendage using a clip,. Patient had a slow recovery. Was discharged from here to rehab at [facility]. Also was in atrial fibrillation. Patient now presents with worsening short of breath. Decreased appetite. Edema lower extremity. Orthopnea. Review of systems: GEN.: Tired decreased appetite EYES: None HEENT: None NECK: None RESPIRATORY: As above CARDIOVASCULAR: [As above GASTROINTESTINAL: None GENITOURINARY: None MUSCULOSKELETAL: Some joint pain LYMPHATICS: None HEMATOLOGICAL: None PSYCHIATRY: None NEUROLOGICAL: None Social history: Lives alone. Denies any alcohol or smoking history. Physical examination: VITAL SIGNS: 98.6, 72, 18, 122/80, 93% room air GENERAL:, Reclining bed, but short of breath EYES: Pupils equal. Conjunctiva clifford l. HEENT: External appearance of nose and ears normal, oral cavity grossly normal. Decreased hearing NECK: JVD raised; masses not palpable. HEART: Heart sounds irregular; edema present LUNGS: Respiratory rate, increased i decreased breath sound s. ABDOMEN: Soft, nontender, liver spleen not palpable, no masses palpable. Daily PSYCH: Alert and oriented x3; mood and affect, tired. MUSCULOSKELETAL:No Clubbing/cyanosis;muscles-grossly intact. OA Neurological: Cranial nerves grossly intact. Espinoza is grossly intact. INVESTIGATIONS, reviewed in the clinical context: June 22, 2024: White count 5.3 hemoglobin 12.8 platelets 169 sodium 139 potassium 4.2 BUN 44 creatinine 0.95 proBNP 4110 EKG tracing personally reviewed by me-atrial pacemaker Chest x-ray film personally reviewed by me-large left pleural effusion Previous April 27, 2024: Hemoglobin 14.5 platelets 210 2D echocardiogram April EF 40 to 45%Normally functioning bioprosthetic aortic valve. Without stenosis. Moderate TR. Cardiac catheterization April 2022 mild nonobstructive CAD Assessment plan: - Large left pleural effusion, likely cardiac cause May 10 patient did have thoracentesis Will probably need thoracentesis. Consult pulmonary -aorctic valve replacement with a bioprosthesis, mitral valve repair with annuloplasty, exclusion of left atrial appendage using a clip, on May 03, [address] Hammond Prior moderate mitral regurgitation, severe tricuspid regurgitation, severe aortic regurgitation - Acute on chronic congestive heart failure exacerbation from systolic dysfunction EF 40 to 45% secondary to valvular disease IV Lasix 40 mg every 8. Fluid restriction 2000 cc a day. Strict I's and O's -Prior atrial fibrillation., Lopressor 25 mg twice daily. Cordarone -Acute postprocedure blood loss anemia expected from surgery Follow H&H -Left pleural effusion, possibly secondary to CHF Pulmonary following. 700 cc left thoracentesis done May 10 -Hard of hearing -Severe secondary pulmonary hypertension -Primary osteoarthritis Tylenol as needed -Colonic diverticulosis, asymptomatic -Chronic kidney disease stage IIIa, baseline creatinine from 1 2-1.3, secondary nephrosclerosis Follows with Dr. Kimbrough outpatient -Pacemaker 2016, for sick sinus syndrome -Full code Discussed with patient. Consult pulmonary, cardiology, cardiothoracic surgery Past Medical History Past Medical History: Atrial Fibrillation, Heart Failure, CVA/TIA, Eye Disorder, Hearing Disorder / Deafness, Hyperlipidemia, Hypertension, Osteoarthritis (OA), Renal Disease, Skin Disorder Additional Past Medical History / Comment(s): SOB in the evening and through the night. Tinnitus, bilateral hearing aid use. Diverticular disease, hemorrhoids. Hx kidney stones. Anemia. 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 Stage 3A kidney disease. Macular degeneration left eye. Small hiatal hernia. History of Any Multi-Drug Resistant Organisms: None Reported Past Surgical History: Adenoidectomy, Appendectomy, Section, Coronary Bypass/CABG, Pacemaker, Tonsillectomy Additional Past Surgical History / Comment(s): SINUS SURGERY, section X3, CHRISTY, colonoscopy. 05/03/24 valve repair and replacement, Past Anesthesia/Blood Transfusion Reactions: No Reported Reaction Additional Past Anesthesia/Blood Transfusion Reaction / Comment(s): Hx blood transfusion with no issues 50 yrs ago. Type of Cardiac Device: Permanent Pacemaker Device Placement Date:: 01/2017 Left chest Past Psychological History: Anxiety, Depression Smoking Status: Never smoker - Past Family History Sister(s) Family Medical History: Cancer Brother(s) Family Medical History: Cancer, Coronary Artery Disease (CAD) Father Family Medical History: Cancer Additional Family Medical History / Comment(s): Prostate cancer with mets to bones, colon. Mother Family Medical History: Renal Disease Additional Family Medical History / Comment(s): kidney disease Medications and Allergies Home Medications Medication Instructions Recorded Confirmed Type L.acidoph,Paracasei, B.lactis 1 cap PO BID 04/25/22 06/22/24 History [Probiotic] Vit C/E/Zn/Coppr/Lutein/Zeaxan 1 cap PO BID 04/25/22 06/22/24 History [Preservision Areds 2 Softgel] Illumineyes 1 tab PO DAILY 12/30/23 06/22/24 History Vitamin C 650mg 1 tab PO DAILY 12/30/23 06/22/24 History Apixaban [Eliquis] 5 mg PO BID 02/27/24 06/22/24 History Acetaminophen Tab [Tylenol] 650 mg PO Q4HR PRN tab 05/17/24 06/22/24 Rx Aspirin 81 mg PO DAILY tab 05/17/24 06/22/24 Rx Metoprolol Tartrate [Lopressor] 25 mg PO BID tab 05/17/24 06/22/24 Rx Pramipexole [Mirapex] 0.5 mg PO HS tab 05/17/24 06/22/24 Rx Amiodarone [Cordarone] 200 mg PO DAILY 06/22/24 06/22/24 History Furosemide [Lasix] 20 mg PO BID 06/22/24 06/22/24 History Magnesium Oxide [Mag-Ox] 400 mg PO DAILY PRN 06/22/24 06/22/24 History hydrALAZINE HCL [Apresoline] 25 mg PO TID 06/22/24 06/22/24 History Allergies Allergy/AdvReac Type Severity Reaction Status Date / Time strawberry Allergy Itching Verified 06/22/24 13:53 mold AdvReac sinuses Verified 06/22/24 13:53 [id number] Reductase AdvReac muscle Verified 06/22/24 13:53 Inhibitor aches and lethargy wheat AdvReac stomach Verified 06/22/24 13:53 bloats and lack of energy Yeast AdvReac sore Verified 06/22/24 13:53 throat,sinuses fungus AdvReac sinuses Uncoded 06/22/24 13:53 Physical Exam Vitals: Vital Signs Temp Pulse Resp BP Pulse Ox 06/22/24 21:16 98.6 F 06/22/24 20:32 72 16 122/80 93 L 06/22/24 17:03 102 H 16 138/83 100 06/22/24 11:17 98.1 F 80 18 114/76 95 Intake and Output 06/22/24 06/22/24 06/22/24 06:59 14:59 22:59 Other: Weight 55.338 kg Results CBC & Chem 7: 06/22/24 14:19 06/22/24 14:19 Labs: Abnormal Lab Results - Last 24 Hours (Table) 06/22/24 06/22/24 06/22/24 Range/Units 14:19 14:19 14:19 Lymphocytes # 0.38 L (0.90-5.00) 10*3/uL Eosinophils # 0.02 L (0.04-0.35) 10*3/uL PT 15.9 H (10.0-12.5) sec INR 1.5 H (<1.2) BUN 44 H (7-17) mg/dL AST 49 H (14-36) U/L ALT 39 H (4-34) U/L Alkaline Phosphatase 191 H (38-126) U/L
[2024-06-22] MEDS: PRAMIPEXOLE 0.5 MG TAB PO SCH (22:42)
--- NOTE | 2024-06-23 06:00 | P.CNPUL ---
History of Present Illness Consult date: 06/23/24 Requesting physician: Kaushal Taylor Reason for consult: pleural effusion Chief complaint: Shortness of breath, leg swelling History of present illness: Patient is a 79-year-old female with past medical history significant for atrial fibrillation, embolic stroke, permanent pacemaker, hypertension, valvular heart disease, and recurrent left-sided pleural effusion. On May 03, patient und erwent aortic valve replacement, mitral valve repair, and exclusion of left atrial appendage with Dr. Hammond. Postoperatively, developed a left-sided pleural effusion, which was drained by Dr. Peter on 05/10/2024. A total of 700 mL was removed from the pleural space at this time. Subsequently, underwent repeat thoracentesis on the left with Dr. Barrientos on 06/10/2024, a total of 1.3 L was removed. She does take Lasix 20 mg daily on an outpatient basis, this was recently increased to 20 mg twice daily by her home care specialist Dr. Sweeney approximately 3 to [address] Dr[address] Barrientos in the pulmonary office yesterday in follow-up. She has been more short of breath as of late. Chest x- ray showing postsurgical changes, permanent pacemaker, small right pleural effusion, with recurrent moderate to large size pleural fluid collection on the left. Also, endorses increased lower extremity edema and leg weakness. She has gained approximately 5 pounds. She has been sleeping on her couch with the head elevated due to shortness of breath. Denies infectious-like symptoms. Denies fevers or chills. Denies chest pain. She was referred to the emergency department for IV diuretics and possible left-sided thoracentesis. Additional workup including a CBC with a WBC count 5.4, hemoglobin 12.8, platelets 169. PT 5.9, INR 1.5, APTT 29.9. CMP: Sodium 139, potassium 4.2, chloride 102, serum bicarb 24, BUN 44, creatinine 0.95, glucose 82. LFTs unremarkable. EKG: Atrially paced rhythm, rate 70 bpm. NT proBNP 4110. Chest x-ray done in the ED patient currently being evaluated on the general medical floor. Endorses above- mentioned symptoms. She is on room air. Endorses shortness of breath, particularly with exertion. Does have significant lower extremity pitting edema. Receiving Lasix 40 mg 3 times daily. Also, anticoagulated on Eliquis. Her last dose of Eliquis was last night. Current vital signs: Temperature 97.4 F, heart rate 69 bpm, blood pressure 137/67 mmHg, nontachypneic, SpO2 recorded at 96% on room air. Review of Systems Constitutional: Reports fatigue, Reports weight gain, Denies chills, Denies fever, Denies poor appetite, Denies weight loss Ears, nose, mouth and throat: Denies epistaxis, Denies headache, Denies nasal congestion, Denies nasal discharge, Denies post-nasal drip, Denies sinus pain, Denies sinus pressure, Denies sore throat Cardiovascular: Reports leg edema, Reports orthopnea, Reports shortness of breath, Denies chest pain, Denies lightheadedness, Denies palpitations, Denies paroxysmal nocturnal dyspnea, Denies syncope Respiratory: Reports dyspnea, Denies congestion, Denies cough, Denies hemoptysis, Denies home oxygen Gastrointestinal: Denies abdominal pain, Denies change in bowel habits, Denies hematemesis, Denies hematochezia, Denies melena, Denies nausea, Denies vomiting Genitourinary: Denies dysuria, Denies hematuria Musculoskeletal: Denies limitation of motion Integumentary: Denies rash, Denies unusual bruising Neurological: Denies seizures, Denies syncope Psychiatric: Denies anxiety, Denies depression Past Medical History Past Medical History: Atrial Fibrillation, Heart Failure, CVA/TIA, Eye Disorder, Hearing Disorder / Deafness, Hyperlipidemia, Hypertension, Osteoarthritis (OA), Renal Disease, Skin Disorder Additional Past Medical History / Comment(s): SOB in the evening and through the night. Tinnitus, bilateral hearing aid use. Diverticular disease, hemorrhoids. Hx kidney stones. Anemia. 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 Stage 3A kidney disease. Macular degeneration left eye. Small hiatal hernia. History of Any Multi-Drug Resistant Organisms: None Reported Past Surgical History: Adenoidectomy, Appendectomy, Section, Coronary Bypass/CABG, Pacemaker, Tonsillectomy Additional Past Surgical History / Comment(s): SINUS SURGERY, section X3, CHRISTY, colonoscopy. 05/03/24 valve repair and replacement, pacemaker 2016 Past Anesthesia/Blood Transfusion Reactions: No Reported Reaction Additional Past Anesthesia/Blood Transfusion Reaction / Comment(s): Hx blood transfusion with no issues 50 yrs ago. Type of Cardiac Device: Permanent Pacemaker Device Placement Date:: 01/2017 Left chest Past Psychological History: Anxiety, Depression Smoking Status: Never smoker Past Alcohol Use History: None Reported Past Drug Use History: None Reported - Past Family History Sister(s) Family Medical History: Cancer Brother(s) Family Medical History: Cancer, Coronary Artery Disease (CAD) Father Family Medical History: Cancer Additional Family Medical History / Comment(s): Prostate cancer with mets to bones, colon. Mother Family Medical History: Renal Disease Additional Family Medical History / Comment(s): kidney disease Medications and Allergies Home Medications Medication Instructions Recorded Confirmed Type L.acidoph,Paracasei, B.lactis 1 cap PO BID 04/25/22 06/22/24 History [Probiotic] Vit C/E/Zn/Coppr/Lutein/Zeaxan 1 cap PO BID 04/25/22 06/22/24 History [Preservision Areds 2 Softgel] Illumineyes 1 tab PO DAILY 12/30/23 06/22/24 History Vitamin C 650mg 1 tab PO DAILY 12/30/23 06/22/24 History Apixaban [Eliquis] 5 mg PO BID 02/27/24 06/22/24 History Acetaminophen Tab [Tylenol] 650 mg PO Q4HR PRN tab 05/17/24 06/22/24 Rx Aspirin 81 mg PO DAILY tab 05/17/24 06/22/24 Rx Metoprolol Tartrate [Lopressor] 25 mg PO BID tab 05/17/24 06/22/24 Rx Pramipexole [Mirapex] 0.5 mg PO HS tab 05/17/24 06/22/24 Rx Amiodarone [Cordarone] 200 mg PO DAILY 06/22/24 06/22/24 History Furosemide [Lasix] 20 mg PO BID 06/22/24 06/22/24 History Magnesium Oxide [Mag-Ox] 400 mg PO DAILY PRN 06/22/24 06/22/24 History hydrALAZINE HCL [Apresoline] 25 mg PO TID 06/22/24 06/22/24 History Allergies Allergy/AdvReac Type Severity Reaction Status Date / Time strawberry Allergy Itching Verified 06/22/24 13:53 mold AdvReac sinuses Verified 06/22/24 13:53 [id number] Reductase AdvReac muscle Verified 06/22/24 13:53 Inhibitor aches and lethargy wheat AdvReac stomach Verified 06/22/24 13:53 bloats and lack of energy Yeast AdvReac sore Verified 06/22/24 13:53 throat,sinuses fungus AdvReac sinuses Uncoded 06/22/24 13:53 Physical Exam Vitals: Vital Signs Temp Pulse Pulse Resp BP BP Pulse Ox 06/23/24 01:00 97.4 F L 69 17 137/67 96 06/22/24 22:22 71 17 119/82 95 06/22/24 21:16 98.6 F 06/22/24 20:32 72 16 122/80 93 L 06/22/24 17:03 102 H 16 138/83 100 06/22/24 11:17 98.1 F 80 18 114/76 95 Intake and Output 06/22/24 06/22/24 06/23/24 14:59 22:59 06:59 Other: Weight 55.338 kg 55.338 kg GENERAL EXAM: Alert, 79-year-old female, on room air, comfortable in no apparent distress. HEAD: Normocephalic and atraumatic EYES: Normal reaction of pupils, equal size. NOSE: Clear with pink turbinates. THROAT: No erythema or exudates. NECK: No masses, no JVD. CHEST: No chest wall deformity. Left chest implanted device. Approximated mid sternal incision LUNGS: Equal air entry with diminished left basilar lung sounds. On room air. No conversational dyspnea or accessory muscle use. While at rest CVS: S1 and S2 normal with no soft systolic murmur, regular rhythm. No other extra heart sounds ABDOMEN: No hepatosplenomegaly, active bowel sounds, no guarding or rigidity. SPINE: No scoliosis or deformity SKIN: No rashes CENTRAL NERVOUS SYSTEM: No focal deficits, tone is normal in all 4 extremities. EXTREMITIES: 2-3+ bilateral lower extremity pitting edema. No clubbing or cyanosis. Peripheral pulses are intact. Results - Laboratory Findings CBC and BMP: 06/22/24 14:19 06/22/24 14:19 PT/INR, D-dimer PT 15.9 sec (10.0-12.5) H 06/22/24 14:19 INR 1.5 (<1.2) H 06/22/24 14:19 Abnormal lab findings: Abnormal Labs 06/22/24 06/22/24 06/22/24 14:19 14:19 14:19 Lymphocytes # 0.38 L Eosinophils # 0.02 L PT 15.9 H INR 1.5 H BUN 44 H AST 49 H ALT 39 H Alkaline Phosphatase 191 H - Diagnostic Findings Chest x-ray: image reviewed Assessment and Plan Assessment: Recurrent moderate to large size left pleural effusion; previously underwent left-sided thoracentesis on 05/10/2024 and again on 06/10/2024. Most recently, a total of 1.3 L was removed from the pleural space. Currently, started on IV d iuretics Acute dyspnea, secondary to above, chest x-ray showing bilateral pleural effusions, left greater than right, cardiomegaly, postsurgical changes, and permanent pacemaker History of valvular heart disease with previous aortic valve replacement and mitral valve repair, with exclusion left atrial appendage performed on 05/03/2024 History of heart failure with reduced ejection fraction, most recent echocardiogram performed 05/10/2024 with an estimated ejection fraction of 45 to 50%, bioprosthetic aortic valve was stable without significant gradient regurgitation, mitral valve repair, was also without significant gradient regurgitation. History of paroxysmal atrial fibrillation, status post cardioversion, chronically anticoagulated on Eliquis History of dual-chamber permanent pacemaker History of embolic stroke History of chronic kidney disease stage III, stable Hypertension Plan: Currently on room air Continue IV diuresis, receiving Lasix 40 mg 3 times daily Chest ultrasound performed, marked for potential left-sided thoracentesis Eliquis was placed on hold for potential thoracentesis We will continue to follow, additional recommendations forthcoming I have personally seen and examined the patient, performed the documentation and the assessment and plan as written. Number of minutes spent on the visit:20 Time with Patient: Greater than 30
--- NOTE | 2024-06-23 07:28 | US ---
EXAMINATION TYPE: US chest DATE OF EXAM: 06/22/2024 COMPARISON: XR 06/22 CLINICAL INDICATION: Female, 79 years old with history of Marking for thoracentesis left; thoracentes is left. Pt states had a thoracentesis on the TECHNIQUE: Grayscale imaging of the chest. Targeted ultrasound of the posterior lower left hemithora x FINDINGS: EXAM MEASUREMENTS: Left Pleural Effusion pocket size: 10.2 cm Left skin surface to fluid distance: 2.0 cm Left side marked for possible thoracentesis outside the dept. Pulmonologists are able to review the images in the patient?s EMR. IMPRESSIONS: As above [facility], , 06/23/2024 7:26 AM
--- NOTE | 2024-06-23 08:03 | P.GSCN ---
History of Present Illness Consult date: 06/23/24 Reason for Consult: Left recurrent pleural effusion, known to our service from recent valve surgery Requesting physician: Kaushal Taylor History of present illness: This is a 79-year-old female with who follows outpatient with Dr. Thayer for primary care, Dr. Perez for cardiology, Dr. Barrientos for pulmonology, and Dr. Kimbrough for nephrology. She has a previous medical history of severe aortic valve regurgitation along with moderate mitral valve regurgitation status post aortic valve replacement and mitral valve repair on May 03, 2024, hypertension, chronic heart failure with reduced ejection fraction, chronic kidney disease stage III, iron deficiency anemia, paroxysmal atrial fibrillation with previous cardioversion and permanent pacemaker placement on [facility] outpatient for anticoagulation, embolic stroke in 2016, and is a lifelong non-smoker. She was hospitalized in early April for elective planned aortic valve replacement and mitral valve repair. She had a prolonged and eventful postoperative course including hyponatremia, leukocytosis, transaminitis, which resolved or were resolving at discharge. She did undergo left-sided thoracentesis by Dr. Marinelli during that admission with removal of 700 mL fluid on May 10. She was discharged on May 17 to [facility] inpatient rehab. She was there for short period of time and eventually discharged to home. She has followed up with her primary care and specialist physicians, she did see Dr. Hammond in the office on June 04. On June 10 she underwent outpatient repeat left-sided thoracentesis by Dr. Barrientos with removal of 1300 mL fluid. At that time she states she felt much better, however over the last week or so she has began to have recurrent progressive shortness of breath with activity. She did see Dr. Barrientos again yesterday in the office who recommended she present to the emergency room for admittance with plans for left-sided thoracentesis. Chest x-ray in the emergency room did confirm recurrent left-sided pleural effusion. Chest ultrasound was completed demonstrating a 10.2 cm fluid pocket on the left. Lab work in the emergency room revealed WBC 5.39, hemoglobin 12.8, INR 1.5, creatinine 0.95, sodium 139, AST 49 and ALT 39 which are trending down, and pro BNP 4110. She had been on oral Lasix at home, initiated on Lasix 40 IV every 8 hours here in the emergency room and admitted with consultation to cardiology, pulmonology, cardiothoracic surgery. Of note her Eliquis is currently on hold, last dose was yesterday. Review of Systems Review of systems was completed and was negative except as noted - Constitutional Reports weakness - Cardiovascular Reports shortness of breath Past Medical History Past Medical History: Atrial Fibrillation, Heart Failure, CVA/TIA, Eye Disorder, Hearing Disorder / Deafness, Hyperlipidemia, Hypertension, Osteoarthritis (OA), Renal Disease, Skin Disorder Additional Past Medical History / Comment(s): Tinnitus, bilateral hearing aid use. Diverticular disease, hemorrhoids. Hx kidney stones. Anemia. Hx CVA-no res idual, severe insufficiency, moderate mitral regurgitation, left bundle branch block, tachy-chase syndrome, vertigo. Stage 3A kidney disease. Macular degeneration left eye. Small hiatal hernia. History of Any Multi-Drug Resistant Organisms: None Reported Past Surgical History: Adenoidectomy, Appendectomy, Section, Pacemaker, Tonsillectomy Additional Past Surgical History / Comment(s): SINUS SURGERY, section X3, CHRISTY, colonoscopy. 05/03/24 aortic valve replacement with mitral valve repair, pacemaker 2016 Past Anesthesia/Blood Transfusion Reactions: No Reported Reaction Additional Past Anesthesia/Blood Transfusion Reaction / Comm: Hx blood transfusion with no issues 50 yrs ago. Type of Cardiac Device: Permanent Pacemaker Device Placement Date:: 01/2017 Left chest Past Psychological History: Anxiety, Depression Smoking Status: Never smoker Past Alcohol Use History: None Reported Past Drug Use History: None Reported - Past Family History Sister(s) Family Medical History: Cancer Brother(s) Family Medical History: Cancer, Coronary Artery Disease (CAD) Father Family Medical History: Cancer Additional Family Medical History / Comment(s): Prostate cancer with mets to bones, colon. Mother Family Medical History: Renal Disease Additional Family Medical History / Comment(s): kidney disease Medications and Allergies Home Medications Medication Instructions Recorded Confirmed Type L.acidoph,Paracasei, B.lactis 1 cap PO BID 04/25/22 06/22/24 History [Probiotic] Vit C/E/Zn/Coppr/Lutein/Zeaxan 1 cap PO BID 04/25/22 06/22/24 History [Preservision Areds 2 Softgel] Illumineyes 1 tab PO DAILY 12/30/23 06/22/24 History Vitamin C 650mg 1 tab PO DAILY 12/30/23 06/22/24 History Apixaban [Eliquis] 5 mg PO BID 02/27/24 06/22/24 History Acetaminophen Tab [Tylenol] 650 mg PO Q4HR PRN tab 05/17/24 06/22/24 Rx Aspirin 81 mg PO DAILY tab 05/17/24 06/22/24 Rx Metoprolol Tartrate [Lopressor] 25 mg PO BID tab 05/17/24 06/22/24 Rx Pramipexole [Mirapex] 0.5 mg PO HS tab 05/17/24 06/22/24 Rx Amiodarone [Cordarone] 200 mg PO DAILY 06/22/24 06/22/24 History Furosemide [Lasix] 20 mg PO BID 06/22/24 06/22/24 History Magnesium Oxide [Mag-Ox] 400 mg PO DAILY PRN 06/22/24 06/22/24 History hydrALAZINE HCL [Apresoline] 25 mg PO TID 06/22/24 06/22/24 History Allergies Allergy/AdvReac Type Severity Reaction Status Date / Time strawberry Allergy Itching Verified 06/22/24 13:53 mold AdvReac sinuses Verified 06/22/24 13:53 [id number] Reductase AdvReac muscle Verified 06/22/24 13:53 Inhibitor aches and lethargy wheat AdvReac stomach Verified 06/22/24 13:53 bloats and lack of energy Yeast AdvReac sore Verified 06/22/24 13:53 throat,sinuses fungus AdvReac sinuses Uncoded 06/22/24 13:53 Surgical - Exam Vital Signs Temp Pulse Resp BP Pulse Ox 98.1 F 80 18 114/76 95 06/22/24 11:17 06/22/24 11:17 06/22/24 11:17 06/22/24 11:17 06/22/24 11:17 CONSTITUTIONAL: Awake and alert, appears comfortable, cooperative, well- developed, well-nourished, no pain, no acute distress EYES: Pupils equal, round, reactive to light, normal ocular movement ENT: Moist mucous membranes without oral lesions present NECK: No masses, no bruits, trachea midline RESPIRATORY: Lungs sounds very diminished on the left. Respirations even, nonlabored. Currently on room air with oxygen saturation 96%. Strong cough. No chest wall deformities. No clubbing or cyanosis present CARDIOVASCULAR: S1, S2 present. Regular rate and rhythm, a paced on telemetry. Sternum stable. Palpable peripheral pulses bilaterally. 2+ pitting edema present to her lower extremities. No calf pain or tenderness noted GASTROINTESTINAL: Abdomen soft, nontender, nondistended without masses or organomegaly noted. There is no rebound or guarding present. Active bowel sounds present 4 quadrants. GENITOURINARY: Deferred INTEGUMENTARY: Skin is warm and dry, anterior chest incision well healed NEUROLOGIC: Cranial nerves II through XII intact, normal coordination, no obvious motor or sensory deficits, speech is normal MUSKULOSKELETAL: Able to move all extremities, strength equal bilaterally, norm al posture PSYCHIATRIC: Alert and oriented to person place and time, appropriate affect, intact judgment and insight Results - Labs 06/22/24 14:19 06/22/24 14:19 Abnormal Lab Results - Last 24 Hours (Table) 06/22/24 06/22/24 06/22/24 Range/Units 14:19 14:19 14:19 Lymphocytes # 0.38 L (0.90-5.00) 10*3/uL Eosinophils # 0.02 L (0.04-0.35) 10*3/uL PT 15.9 H (10.0-12.5) sec INR 1.5 H (<1.2) BUN 44 H (7-17) mg/dL AST 49 H (14-36) U/L ALT 39 H (4-34) U/L Alkaline Phosphatase 191 H (38-126) U/L Diabetes panel 06/22/24 Range/Units 14:19 Sodium 139 (137-145) mmol/L Potassium 4.2 (3.5-5.1) mmol/L Chloride 102 (98-107) mmol/L Carbon Dioxide 24 (22-30) mmol/L BUN 44 H (7-17) mg/dL Creatinine 0.95 (0.52-1.04) mg/dL Glucose 82 (74-99) mg/dL Calcium 9.5 (8.4-10.2) mg/dL AST 49 H (14-36) U/L ALT 39 H (4-34) U/L Alkaline Phosphatase 191 H (38-126) U/L Total Protein 6.9 (6.3-8.2) g/dL Albumin 3.5 (3.5-5.0) g/dL Calcium panel 06/22/24 Range/Units 14:19 Calcium 9.5 (8.4-10.2) mg/dL Albumin 3.5 (3.5-5.0) g/dL Pituitary panel 06/22/24 Range/Units 14:19 Sodium 139 (137-145) mmol/L Potassium 4.2 (3.5-5.1) mmol/L Chloride 102 (98-107) mmol/L Carbon Dioxide 24 (22-30) mmol/L BUN 44 H (7-17) mg/dL Creatinine 0.95 (0.52-1.04) mg/dL Glucose 82 (74-99) mg/dL Calcium 9.5 (8.4-10.2) mg/dL Adrenal panel 06/22/24 Range/Units 14:19 Sodium 139 (137-145) mmol/L Potassium 4.2 (3.5-5.1) mmol/L Chloride 102 (98-107) mmol/L Carbon Dioxide 24 (22-30) mmol/L BUN 44 H (7-17) mg/dL Creatinine 0.95 (0.52-1.04) mg/dL Glucose 82 (74-99) mg/dL Calcium 9.5 (8.4-10.2) mg/dL Total Bilirubin 0.9 (0.2-1.3) mg/dL AST 49 H (14-36) U/L ALT 39 H (4-34) U/L Alkaline Phosphatase 191 H (38-126) U/L Total Protein 6.9 (6.3-8.2) g/dL Albumin 3.5 (3.5-5.0) g/dL - Imaging Chest x-ray: report reviewed, image reviewed Additional studies: Chest ultrasound reviewed Assessment and Plan Assessment: Recurrent left-sided pleural effusion previous left-sided thoracentesis on May 10 and June 10 Acute on chronic heart failure Shortness of breath, secondary to above History of severe aortic valve regurgitation along with moderate mitral valve regurgitation status post aortic valve replacement and mitral valve repair on May 03, 2024 Hypertension Chronic heart failure with reduced ejection fraction Chronic kidney disease stage III Iron deficiency anemia Paroxysmal atrial fibrillation with previous cardioversion and permanent pacemaker placement on [facility] outpatient for anticoagulation Embolic stroke in 2017 Lifelong non-smoker Plan: The patient was seen and examined sitting up in bed on the fourth floor medical surgical unit in no acute distress. She does state she has had progressive shortness of breath with activity only, remains on room air with oxygen saturation in the mid 90s. She does have lower extremity edema which she said has actually gotten better since they started IV Lasix. Denies any pain at this time. Discussed the case in detail with Dr. Hammond and reviewed chest x-ray with him. No surgical intervention planned at this time from our standpoint. Agree with left-sided thoracentesis by pulmonology, continue to hold anticoagulation for now. Recommend consulting nephrology for her chronic kidney disease and assistance with antihypertensives, patient likely needs increase in her afterload reduction. Otherwise continue current medication therapy. Will add PT and OT as patient states that she feels general weakness. Encourage incentive spirometry use. Sternal precautions for another month. Medical management of other comorbidities per internal medicine, cardiology, pulmonology. Thank you for this consult, we will continue to follow along and make further recommendations as appropriate. I have personally seen and examined the patient, performed the documentation and the assessment and plan as written. Number of minutes spent on the visit: 30. Veda Gould, JOSHUA-C
[2024-06-23 08:14] LABS: Basophils # (A) 0.02 X 10*3/uL (0.00-0.10); Basophils % (A) 0.4 %; Eosinophils # (A) 0.03 X 10*3/uL (0.04-0.35); Eosinophils % (A) 0.7 %; HGB 11.2 g/dL (12.0-15.0); Lymphocytes # (A) 0.41 X 10*3/uL (0.90-5.00); MCHC 31.1 g/dL (32.0-37.0); MCV 96.5 FL (80.0-97.0); Mean Platelet Volume 10.8 FL (9.5-12.2); Monocytes # (A) 0.39 X 10*3/uL (0.20-1.00); Monocytes % (A) 8.6 %; NRBC Per 100 WBC 0 X 10*3/uL (0.00-0.01); Neutrophils # (A) 3.68 X 10*3/uL (1.80-7.70); Neutrophils % (A) 81.1 %; Platelet Count 148 X 10*3/uL (140-440); RBC 3.73 X 10*6/uL (4.10-5.20); RDW 16.7 % (11.5-14.5); WBC 4.54 X 10*3/uL (4.50-10.00)
[2024-06-23 08:32] LABS: ALT 35 U/L (8-44); AST 37 U/L (13-35); Albumin 3.1 g/dL (3.8-4.9); Albumin/Globulin Ratio 1.15 Ratio (1.60-3.17); Alkaline Phosphatase 158 U/L (41-126); Blood Urea Nitrogen 38.4 mg/dL (9.0-27.0); Calcium 8.8 mg/dL (8.7-10.3); Carbon Dioxide 27.1 mmol/L (21.6-31.8); Chloride 101 mmol/L (96-109); Globulin 2.7 g/dL (1.6-3.3); Glucose 89 mg/dL (70-110); Potassium 3.5 mmol/L (3.5-5.5); Sodium 141 mmol/L (135-145); Total Bilirubin 0.6 mg/dL (0.3-1.2); Total Protein 5.8 g/dL (6.2-8.2)
[2024-06-23] MEDS: ASPIRIN 81 MG PO SCH (08:49)
[2024-06-23] MEDS: AMIODARONE 200 MG TAB PO SCH (08:49)
--- NOTE | 2024-06-23 11:48 | P.NPCON ---
History of Present Illness - Reason for Consult chronic renal failure - History of Present Illness Patient is a 79-year-old female with history of chronic kidney disease stage IIIa with baseline creatinine around 1 mg/d, admitted with complaints of increased lower extremity swelling as well as shortness of breath. Patient has had recurrent left pleural effusion and is being considered for repeat thorace ntesis. He has history of recent aortic valve replacement and mitral valve repair on 05/03/2024 with complicated postop course with hyponatremia and volume overload. No complaints of fever chills nausea vomiting abdominal pain or diarrhea Currently being diuresed and maintained on Lasix 40 mg IV every 8 hours. Urine output is not charted No significant hypotension noted Serum creatinine was 0.9 on admission and is 1.2 today. Past Medical History Past Medical History: Atrial Fibrillation, Heart Failure, CVA/TIA, Eye Disorder, Hearing Disorder / Deafness, Hyperlipidemia, Hypertension, Osteoarthritis (OA), Renal Disease, Skin Disorder Additional Past Medical History / Comment(s): Tinnitus, bilateral hearing aid use. Diverticular disease, hemorrhoids. Hx kidney stones. Anemia. 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 Stage 3A kidney disease. Macular degeneration left eye. Small hiatal hernia. History of Any Multi-Drug Resistant Organisms: None Reported Past Surgical History: Adenoidectomy, Appendectomy, Section, Pacemaker, Tonsillectomy Additional Past Surgical History / Comment(s): SINUS SURGERY, section X3, CHRISTY, colonoscopy. 05/03/24 aortic valve replacement with mitral valve repair, pacemaker 2016 Past Anesthesia/Blood Transfusion Reactions: No Reported Reaction Additional Past Anesthesia/Blood Transfusion Reaction / Comment(s): Hx blood transfusion with no issues 50 yrs ago. Type of Cardiac Device: Permanent Pacemaker Device Placement Date:: 01/2017 Left chest Past Psychological History: Anxiety, Depression Smoking Status: Never smoker Past Alcohol Use History: None Reported Past Drug Use History: None Reported - Past Family History Sister(s) Family Medical History: Cancer Brother(s) Family Medical History: Cancer, Coronary Artery Disease (CAD) Father Family Medical History: Cancer Additional Family Medical History / Comment(s): Prostate cancer with mets to bones, colon. Mother Family Medical History: Renal Disease Additional Family Medical History / Comment(s): kidney disease Medications and Allergies Home Medications Medication Instructions Recorded Confirmed Type L.acidoph,Paracasei, B.lactis 1 cap PO BID 04/25/22 06/22/24 History [Probiotic] Vit C/E/Zn/Coppr/Lutein/Zeaxan 1 cap PO BID 04/25/22 06/22/24 History [Preservision Areds 2 Softgel] Illumineyes 1 tab PO DAILY 12/30/23 06/22/24 History Vitamin C 650mg 1 tab PO DAILY 12/30/23 06/22/24 History Apixaban [Eliquis] 5 mg PO BID 02/27/24 06/22/24 History Acetaminophen Tab [Tylenol] 650 mg PO Q4HR PRN tab 05/17/24 06/22/24 Rx Aspirin 81 mg PO DAILY tab 05/17/24 06/22/24 Rx Metoprolol Tartrate [Lopressor] 25 mg PO BID tab 05/17/24 06/22/24 Rx Pramipexole [Mirapex] 0.5 mg PO HS tab 05/17/24 06/22/24 Rx Amiodarone [Cordarone] 200 mg PO DAILY 06/22/24 06/22/24 History Furosemide [Lasix] 20 mg PO BID 06/22/24 06/22/24 History Magnesium Oxide [Mag-Ox] 400 mg PO DAILY PRN 06/22/24 06/22/24 History hydrALAZINE HCL [Apresoline] 25 mg PO TID 06/22/24 06/22/24 History Allergies Allergy/AdvReac Type Severity Reaction Status Date / Time strawberry Allergy Itching Verified 06/22/24 13:53 mold AdvReac sinuses Verified 06/22/24 13:53 [id number] Reductase AdvReac muscle Verified 06/22/24 13:53 Inhibitor aches and lethargy wheat AdvReac stomach Verified 06/22/24 13:53 bloats and lack of energy Yeast AdvReac sore Verified 06/22/24 13:53 throat,sinuses fungus AdvReac sinuses Uncoded 06/22/24 13:53 Physical Exam Vitals: Vital Signs Temp Pulse Pulse Resp BP BP Pulse Ox 06/23/24 06:50 71 18 104/71 97 06/23/24 01:00 97.4 F L 69 17 137/67 96 06/22/24 22:22 71 17 119/82 95 06/22/24 21:16 98.6 F 06/22/24 20:32 72 16 122/80 93 L 06/22/24 17:03 102 H 16 138/83 100 Intake and Output 06/22/24 06/23/24 06/23/24 22:59 06:59 14:59 Intake Total 240 Balance 240 Intake: Oral 240 Other: Voiding Method Toilet # Voids 0 Weight 55.338 kg Patient is awake, comfortable, no acute distress Examination of the heart S1 and S2 Examination of the lungs shows decreased breath sounds at the bases left more th an right Abdomen is soft nontender Examination of lower extremities shows edema 2+ bilateral [employer] exam grossly intact Results - Lab Results Most recent lab results Calcium 8.8 mg/dL (8.7-10.3) 06/23/24 03:23 Magnesium 2.1 mg/dL (1.6-2.3) 06/22/24 14:19 06/23/24 03:23 06/23/24 03:23 Assessment and Plan Assessment: 1. Chronic kidney disease stage III with baseline creatinine around 1. Etiology nephrosclerosis 2. Volume overload 3. Recurrent left pleural effusion 4. Status post aortic valve replacement and mitral valve repair on May 03, 2024 Plan: Continue with current dose of Lasix Accurate I's and O's Repeat labs in a.m. Avoid hypotension Decrease dose of hydralazine if blood pressure remains on the lower side. Thank you for the consultation. Will continue to follow the patient with you during her hospitalization.
--- NOTE | 2024-06-23 12:35 | P.CRDCN ---
History of Present Illness Consult date: 06/23/24 Reason for Consult (text): Variable heart block History of present illness: This is a 79-year-old female patient of Dr. Perez with past medical history of paroxysmal atrial fibrillation, permanent pacemaker, valvular heart disease status post aortic valve replacement and mitral valve repair, history of heart failure with reduced EF and cardiomyopathy, dilated ascending aorta. We have been asked to evaluate the patient for CHF. Patient states that she has had increasing lower extremity edema for the past few days to the point that she co uld not walk because of fluid and also her legs were aching. She spoke with Dr. Perez on the phone 2 days ago and her Lasix was doubled. She states she has had lower extremity edema since she had her open heart surgery. She states her breathing has been significantly bad since [place] and feels like she is going backwards. She does state that she feels some improvement since open-heart surgery. He had a recent thoracentesis done on 06/[address] Flores and states that she has had some improvement of her breathing since then. Patient has been started on IV Lasix received 40 mg x 2 and is now on 40 mg every 8 hours. She feels that she is urinating quite a bit and the edema to her legs has improved a little bit. She still has significant edema up to her hip. Discussed use of Farxiga. She denies frequent urinary tract infections and denies dysuria at this time. She is concerned that she does not have insurance coverage for prescriptions. She does state that she has hematuria which we will obtain UA to evaluate. Blood pressure 104/71, heart rate 71, pulse ox 97% on room air. Patient has has had ultrasound of the chest done in April for thoracentesis. Eliquis is on hold. -EKG: Atrial paced rhythm. -Chest x-ray: Right upper lobe infiltrate. Increased opacity left lower lobe could reflect underlying atelectasis and/or infiltrates. Small effusions noted. -Chest ultrasound reveals a left pleural effusion pocket 10.2 cm. -Laboratory studies: WBC 4.5, hemoglobin 9.2, sodium 141, potassium 3.5, BUN 38 creatinine 1.2, AST 37, alkaline phosphatase 158. -Home cardiac medications: Amiodarone 200 mg daily, Eliquis 5 mg twice daily, aspirin 81 mg daily, Lasix 20 mg twice daily, hydralazine 25 mg 3 times daily, metoprolol tartrate 25 mg twice daily. -Echocardiogram performed on 05/10/2024 revealed EF 40 to 45%, mild concentric LVH, atypical septal motion probably related to previous bypass surgery and conduction abnormality. Atria enlarged. Bioprosthetic aortic valve stable. No significant gradient. Mild regurgitation. Mitral annular calcification with mitral valve repair evident. No significant gradient. Mild mitral regurgitation. Mild tricuspid regurgitation. No significant pulmonary hypertension. No pericardial effusion. Review Of Systems: At the time of my exam: CONSTITUTIONAL: Denies fever or chills. HEENT: Denies blurred vision, vision changes, or eye pain. Denies hemoptysis CARDIOVASCULAR: Denies chest pain. Denies orthopnea. Denies PND. Denies palpitations RESPIRATORY: Reports shortness of breath. Reports lower extremity edema. GASTROINTESTINAL: Denies abdominal pain. Denies nausea or vomiting. HEMATOLOGIC: Denies bleeding disorders. GENITOURINARY: Denies any blood in urine. SKIN: Denies puritis. Denies rash. Physical examination: Gen: This is 79-year-old female in no acute distress VS: reviewed HEENT: Head is atraumatic, normocephalic. Pupils equal, round. Sclerae is anicteric. NECK: Supple. No JVD. LUNGS: Clear to auscultation. No wheezes or rhonchi. No intercostal retractions. HEART: Regular rate and rhythm. No murmur. ABDOMEN: Soft No tenderness. EXTREMITIES: Plus lower extremity edema up to the hip. No calf tenderness. NEUROLOGICAL: Patient is awake, alert and oriented x3. Assessment: Acute on chronic heart failure with reduced ejection fraction, EF 40% Recurrent left-sided pleural effusion s/p thoracentesis on 05/10 and 06/10 Severe aortic valve regurgitation, status post aortic valve replacement 05/03 Moderate mitral valve regurgitation, status post mitral valve repair 05/03 Hypertension Chronic kidney disease stage III Paroxysmal atrial fibrillation Sick sinus syndrome status post permanent dual-chamber pacemaker Embolic stroke with full recovery in 2017 Mild elevation of liver function test Plan: Resume patient's home cardiac medications Eliquis is on hold for thoracentesis Start patient on Farxiga 10 mg daily and prescription has been sent to [facility] to determine telles Continue IV Lasix 40 mg every 8 hours Monitor NAHID, daily weights, electrolytes and renal function No need to repeat echocardiogram Further recommendations to follow based upon clinical course Thank you kindly for this consultation. Nurse practitioner note has been reviewed, I agree with documented findings and plan of care. Patient was seen and examined. Past Medical History Past Medical History: Atrial Fibrillation, Heart Failure, CVA/TIA, Eye Disorder, Hearing Disorder / Deafness, Hyperlipidemia, Hypertension, Osteoarthritis (OA), Renal Disease, Skin Disorder Additional Past Medical History / Comment(s): Tinnitus, bilateral hearing aid use. Diverticular disease, hemorrhoids. Hx kidney stones. Anemia. 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 Stage 3A kidney disease. Macular degeneration left eye. Small hiatal hernia. History of Any Multi-Drug Resistant Organisms: None Reported Past Surgical History: Adenoidectomy, Appendectomy, Section, Pacemaker, Tonsillectomy Additional Past Surgical History / Comment(s): SINUS SURGERY, section X3, CHRISTY, colonoscopy. 05/03/24 aortic valve replacement with mitral valve repair, pacemaker 2016 Past Anesthesia/Blood Transfusion Reactions: No Reported Reaction Additional Past Anesthesia/Blood Transfusion Reaction / Comment(s): Hx blood transfusion with no issues 50 yrs ago. Type of Cardiac Device: Permanent Pacemaker Device Placement Date:: 01/2017 Left chest Past Psychological History: Anxiety, Depression Smoking Status: Never smoker Past Alcohol Use History: None Reported Past Drug Use History: None Reported - Past Family History Sister(s) Family Medical History: Cancer Brother(s) Family Medical History: Cancer, Coronary Artery Disease (CAD) Father Family Medical History: Cancer Additional Family Medical History / Comment(s): Prostate cancer with mets to bones, colon. Mother Family Medical History: Renal Disease Additional Family Medical History / Comment(s): kidney disease Medications and Allergies Home Medications Medication Instructions Recorded Confirmed Type L.acidoph,Paracasei, B.lactis 1 cap PO BID 04/25/22 06/22/24 History [Probiotic] Vit C/E/Zn/Coppr/Lutein/Zeaxan 1 cap PO BID 04/25/22 06/22/24 History [Preservision Areds 2 Softgel] Illumineyes 1 tab PO DAILY 12/30/23 06/22/24 History Vitamin C 650mg 1 tab PO DAILY 12/30/23 06/22/24 History Apixaban [Eliquis] 5 mg PO BID 02/27/24 06/22/24 History Acetaminophen Tab [Tylenol] 650 mg PO Q4HR PRN tab 05/17/24 06/22/24 Rx Aspirin 81 mg PO DAILY tab 05/17/24 06/22/24 Rx Metoprolol Tartrate [Lopressor] 25 mg PO BID tab 05/17/24 06/22/24 Rx Pramipexole [Mirapex] 0.5 mg PO HS tab 05/17/24 06/22/24 Rx Amiodarone [Cordarone] 200 mg PO DAILY 06/22/24 06/22/24 History Furosemide [Lasix] 20 mg PO BID 06/22/24 06/22/24 History Magnesium Oxide [Mag-Ox] 400 mg PO DAILY PRN 06/22/24 06/22/24 History hydrALAZINE HCL [Apresoline] 25 mg PO TID 06/22/24 06/22/24 History Dapagliflozin Propanediol [Farxiga] 10 mg PO DAILY #30 tab 06/23/24 Rx Allergies Allergy/AdvReac Type Severity Reaction Status Date / Time strawberry Allergy Itching Verified 06/22/24 13:53 mold AdvReac sinuses Verified 06/22/24 13:53 [id number] Reductase AdvReac muscle Verified 06/22/24 13:53 Inhibitor aches and lethargy wheat AdvReac stomach Verified 06/22/24 13:53 bloats and lack of energy Yeast AdvReac sore Verified 06/22/24 13:53 throat,sinuses fungus AdvReac sinuses Uncoded 06/22/24 13:53 Physical Exam Vitals: Vital Signs Temp Pulse Pulse Resp BP BP Pulse Ox 06/23/24 06:50 71 18 104/71 97 06/23/24 01:00 97.4 F L 69 17 137/67 96 06/22/24 22:22 71 17 119/82 95 06/22/24 21:16 98.6 F 06/22/24 20:32 72 16 122/80 93 L 06/22/24 17:03 102 H 16 138/83 100 Intake and Output 06/22/24 06/23/24 06/23/24 22:59 06:59 14:59 Intake Total 240 Balance 240 Intake: Oral 240 Other: Voiding Method Toilet # Voids 0 Weight 55.338 kg Results 06/23/24 03:23 06/23/24 03:23 Cardiac Enzymes 06/22/24 06/23/24 Range/Units 14:19 03:23 AST 49 H 37 H (14-36) U/L Coagulation 06/22/24 Range/Units 14:19 PT 15.9 H (10.0-12.5) sec APTT 29.9 (22.0-30.0) sec CBC 06/22/24 06/23/24 Range/Units 14:19 03:23 WBC 5.39 4.54 (4.50-10.00) 10*3/uL RBC 4.19 3.73 L (4.10-5.20) 10*6/uL Hgb 12.8 11.2 L (12.0-15.0) g/dL Hct 39.6 36.0 L (37.2-46.3) % Plt Count 169 148 (140-440) 10*3/uL Comprehensive Metabolic Panel 06/22/24 06/23/24 Range/Units 14:19 03:23 Sodium 139 141 (137-145) mmol/L Potassium 4.2 3.5 (3.5-5.1) mmol/L Chloride 102 101 (98-107) mmol/L Carbon Dioxide 24 27.1 (22-30) mmol/L BUN 44 H 38.4 H (7-17) mg/dL Creatinine 0.95 1.2 (0.52-1.04) mg/dL Glucose 82 89 (74-99) mg/dL Calcium 9.5 8.8 (8.4-10.2) mg/dL AST 49 H 37 H (14-36) U/L ALT 39 H 35 (4-34) U/L Alkaline Phosphatase 191 H 158 H (38-126) U/L Total Protein 6.9 5.8 L (6.3-8.2) g/dL Albumin 3.5 3.1 L (3.5-5.0) g/dL Current Medications Generic Name Dose Route Start Last Admin Trade Name Freq PRN Reason Stop Dose Admin Acetaminophen 650 mg 06/22/24 15:23 Acetaminophen Tab 325 Mg Tab PO Q6HR PRN Mild Pain or Fever > 100.5 Amiodarone HCl 200 mg 06/23/24 09:00 06/23/24 08:49 Amiodarone 200 Mg Tab PO 200 mg DAILY WADE Administration Aspirin 81 mg 06/23/24 09:00 06/23/24 08:49 Aspirin 81 Mg PO 81 mg DAILY WADE Administration Furosemide 40 mg 06/22/24 06:00 06/23/24 05:47 Furosemide 10 Mg/Ml 4 Ml Vial IV 40 mg Q8H WADE Administration Hydralazine HCl 25 mg 06/22/24 16:00 06/23/24 08:44 Hydralazine Hcl 25 Mg Tab PO Not Given TID WADE Metoprolol Tartrate 25 mg 06/22/24 21:00 06/23/24 08:49 Metoprolol Tartrate 25 Mg Tab PO 25 mg BID WADE Administration Naloxone HCl 0.2 mg 06/22/24 15:20 Naloxone 0.4 Mg/Ml 1 Ml Vial IV Q2M PRN Opioid Reversal Naloxone HCl 0.2 mg 06/22/24 15:23 Naloxone 0.4 Mg/Ml 1 Ml Vial IV Q2M PRN Opioid Reversal Pramipexole Dihydrochloride 0.5 mg 06/22/24 21:00 06/22/24 22:42 Pramipexole 0.5 Mg Tab PO 0.5 mg HS WADE Administration Intake and Output 06/22/24 06/23/24 06/23/24 22:59 06:59 14:59 Intake Total 240 Balance 240 Intake: Oral 240 Other: Voiding Method Toilet # Voids 0 Weight 55.338 kg 06/23/24 03:23 06/23/24 03:23
[2024-06-23 14:52] VITALS: BMI 22.3
[2024-06-23] MEDS: DAPAGLIFLOZIN PROPANEDIOL 10 MG TABLET PO SCH (14:57)
[2024-06-23 15:51] LABS: Appearance,Urine Clear (Clear); Bilirubin,Urine Negative (Negative); Blood,Urine Large (Negative); Color,Urine Colorless; Glucose,Urine (UA) Negative (Negative); Hyaline Casts,Urine 25 /lpf (0-2); Ketones,Urine Negative (Negative); Leukocyte Esterase,Urine Negative (Negative); Mucus,Urine Rare /hpf; Nitrite,Urine Negative (Negative); PH, Urine 6.5 (5.0-8.0); Protein,Urine Negative (Negative); RBC,Urine 136 /hpf (0-5); Specific Gravity,Urine 1.007 (1.001-1.035); Squamous Epithelial Cell,Urine <1 /hpf (0-4); Urobilinogen,Urine <2.0 mg/dL (<2.0); WBC,Urine 33 /hpf (0-5)
--- NOTE | 2024-06-23 18:33 | P.PN ---
Progress Note - Text Progress Note Date: 06/23/24 Chief Complaint: Short of breath pleasant 79 year-old patient, follows with Dr. Thayer. Medical history includes atrial fibrillation, hard of hearing, hypertension osteoarthritis kidney disease, tinnitus diverticulosis kidney stones tachybradycardia syndrome stage IIIa kidney disease follows with Dr. Kimbrough macular degeneration. May 21, 2024 underwent arctic valve replacement with a bioprosthesis, mitral valve repair with annuloplasty, exclusion of left atrial appendage using a clip,. Patient had a slow recovery. Was discharged from here to rehab at [facility]. Also was in atrial fibrillation. Patient now presents with worsening short of breath. Decreased appetite. Edema lower extremity. Orthopnea. June 23: Admitted with CHF exacerbation. On IV Lasix 40 mg every 8. Significant fluid output. Breathing better. Erma as above. Edema present. Pulmonary is planning for thoracentesis tomorrow. Eating better Active Medications Acetaminophen (Acetaminophen Tab 325 Mg Tab) 650 mg PO Q6HR PRN PRN Reason: Mild Pain or Fever > 100.5 Amiodarone HCl (Amiodarone 200 Mg Tab) 200 mg PO DAILY [facility] Last Admin: 06/23/24 08:49 Dose: 200 mg Aspirin (Aspirin 81 Mg) 81 mg PO DAILY [facility] Last Admin: 06/23/24 08:49 Dose: 81 mg Dapagliflozin (Dapagliflozin Propanediol 10 Mg Tablet) 10 mg PO DAILY [facility] Last Admin: 06/23/24 14:57 Dose: 10 mg Furosemide (Furosemide 10 Mg/Ml 4 Ml Vial) 40 mg IV Q8H [facility] Last Admin: 06/23/24 13:39 Dose: 40 mg Hydralazine HCl (Hydralazine Hcl 25 Mg Tab) 25 mg PO TID [facility] Last Admin: 06/23/24 15:10 Dose: Not Given Metoprolol Tartrate (Metoprolol Tartrate 25 Mg Tab) 25 mg PO BID [facility] Last Admin: 06/23/24 08:49 Dose: 25 mg Naloxone HCl (Naloxone 0.4 Mg/Ml 1 Ml Vial) 0.2 mg IV Q2M PRN PRN Reason: Opioid Reversal Naloxone HCl (Naloxone 0.4 Mg/Ml 1 Ml Vial) 0.2 mg IV Q2M PRN PRN Reason: Opioid Reversal Pramipexole Dihydrochloride (Pramipexole 0.5 Mg Tab) 0.5 mg PO HS [facility] Last Admin: 06/22/24 22:42 Dose: 0.5 mg Social history: Lives alone. Denies any alcohol or smoking history. Physical examination: VITAL SIGNS: 97.5, 71, 18, 106 x 72, 91% room air GENERAL:, Up on the sofa, breathing a bit better EYES: Pupils equal. Conjunctiva clifford l. HEENT: External appearance of nose and ears normal, oral cavity grossly normal. Decreased hearing NECK: JVD raised; masses not palpable. HEART: Heart sounds irregular; edema present LUNGS: Respiratory rate, increased i decreased breath sound s. ABDOMEN: Soft, nontender, liver spleen not palpable, no masses palpable. Daily PSYCH: Alert and oriented x3; mood and affect, tired. MUSCULOSKELETAL:No Clubbing/cyanosis;muscles-grossly intact. OA Neurological: Cranial nerves grossly intact. Espinoza is grossly intact. INVESTIGATIONS, reviewed in the clinical context: June 23: Potassium 3.5 BUN 38.4 creatinine 1.2 white count 4.5 hemoglobin 11.2 June 22, 2024: White count 5.3 hemoglobin 12.8 platelets 169 sodium 139 potassium 4.2 BUN 44 creatinine 0.95 proBNP 4110 EKG tracing personally reviewed by me-atrial pacemaker Chest x-ray film personally reviewed by me-large left pleural effusion Previous April 27, 2024: Hemoglobin 14.5 platelets 210 2D echocardiogram April EF 40 to 45%Normally functioning bioprosthetic aortic valve. Without stenosis. Moderate TR. Cardiac catheterization April 2022 mild nonobstructive CAD Assessment plan: - Large left pleural effusion, likely CHF: Slow response May 10 patient did have thoracentesis Pending thoracentesis by Dr. aMrinelli -aorctic valve replacement with a bioprosthesis, mitral valve repair with an nuloplasty, exclusion of left atrial appendage using a clip, on May 03, [address] Hammond Prior moderate mitral regurgitation, severe tricuspid regurgitation, severe aortic regurgitation - Acute on chronic congestive heart failure exacerbation from systolic dysfunction EF 40 to 45% secondary to valvular disease: Slow to respond IV Lasix 40 mg every 8. Fluid restriction 2000 cc a day. Strict I's and O's -Prior atrial fibrillation., Lopressor 25 mg twice daily. Cordarone -Acute postprocedure blood loss anemia expected from surgery Follow H&H -Left pleural effusion, possibly secondary to CHF Pulmonary following. 700 cc left thoracentesis done May 10 -Hard of hearing -Severe secondary pulmonary hypertension -Primary osteoarthritis Tylenol as needed -Colonic diverticulosis, asymptomatic -Chronic kidney disease stage IIIa, baseline creatinine from 1 2-1.3, secondary nephrosclerosis Follows with Dr. Kimbrough outpatient -Pacemaker 2016, for sick sinus syndrome -Full code Discussed with patient. Continue Lasix. For thoracentesis tomorrow. Past Medical History Past Medical History: Atrial Fibrillation, Heart Failure, CVA/TIA, Eye Disorder, Hearing Disorder / Deafness, Hyperlipidemia, Hypertension, Osteoarthritis (OA), Renal Disease, Skin Disorder Additional Past Medical History / Comment(s): SOB in the evening and through the night. Tinnitus, bilateral hearing aid use. Diverticular disease, hemorrhoids. Hx kidney stones. Anemia. 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 Stage 3A kidney disease. Macular degeneration left eye. Small hiatal hernia. History of Any Multi-Drug Resistant Organisms: None Reported Past Surgical History: Adenoidectomy, Appendectomy, Section, Coronary Bypass/CABG, Pacemaker, Tonsillectomy Additional Past Surgical History / Comment(s): SINUS SURGERY, section X3, CHRISTY, colonoscopy. 05/03/24 valve repair and replacement, Past Anesthesia/Blood Transfusion Reactions: No Reported Reaction Additional Past Anesthesia/Blood Transfusion Reaction / Comment(s): Hx blood transfusion with no issues 50 yrs ago. Type of Cardiac Device: Permanent Pacemaker Device Placement Date:: 01/2017 Left chest Past Psychological History: Anxiety, Depression Smoking Status: Never smoker
[2024-06-24] MEDS: ACETAMINOPHEN TAB 325 MG TAB PO PRN (06:55)
--- NOTE | 2024-06-24 09:53 | XR ---
EXAMINATION TYPE: XR chest 1V portable DATE OF EXAM: 06/24/2024 9:49 AM COMPARISON: 06/22/2024 CLINICAL INDICATION: Female, 79 years old with history of Post left thoracentesis, TECHNIQUE: XR chest 1V portable views of the chest are obtained. FINDINGS: Demonstrated are scattered senescent parenchymal change. Significantly improved left-sided pleural effusion with areas of discoid atelectasis. No evidence for pneumothorax. The heart is stable. Hilar and mediastinal structures are within normal limits. Degenerative changes are seen of the dorsal spine. IMPRESSION: 1. Significantly improved left-sided pleural effusion with areas of discoid atelectasis. No evidence for pneumothorax. [facility], , 06/24/2024 9:51 AM
--- NOTE | 2024-06-24 11:00 | P.PN ---
Subjective Progress Note Date: 06/24/24 Principal diagnosis: Recurrent left-sided pleural effusion previous left-sided thoracentesis on May 10 and June 10, acute on chronic heart failure. History of severe aortic valve regurgitation along with moderate mitral valve regurgitation status post aortic valve replacement and mitral valve repair on May 03, 2024, hypertension, chronic heart failure with reduced ejection fraction, chronic kidney disease stage III, iron deficiency anemia, paroxysmal atrial fibrillation with previous cardioversion and permanent pacemaker placement on [facility] outpatient for anticoagulation, embolic stroke in 2017, lifelong non-smoker The patient was seen and examined sitting up at the bedside in no acute distress having just had her thoracentesis performed by Dr. Marinelli with removal of 1.3 L of fluid. States she is tired but feels her breathing is significantly better. Chest x-ray reveals resolution of left-sided pleural effusion. Patient continues to be on IV Lasix, states she is voiding although no documentation of amount in [employer]. Remains on room air with oxygen saturation in the mid 90s, able to achieve 750 mL on incentive spirometer. Discussed the case with Dr. Hammond who reviewed patient's films. No other new concerns. Objective - Vital Signs Vital signs: Vital Signs Temp 97.6 F 06/24/24 06:57 Pulse 71 06/24/24 06:57 Resp 17 06/24/24 06:57 BP 104/74 06/24/24 06:57 Pulse Ox 95 06/24/24 06:57 FiO2 Intake & Output 06/23/24 06/24/24 06/24/24 18:59 06:59 18:59 Intake Total 240 240 Balance 240 240 Weight 55.338 kg Intake: Oral 240 240 Other: Voiding Method Toilet Toilet Toilet - Exam CONSTITUTIONAL: Appears comfortable, cooperative, no acute distress RESPIRATORY: Lungs sounds diminished bilaterally. Respirations even, nonlabored. Currently on room air with oxygen saturation 95%. Able to achieve 750 mL on incentive spirometry. Strong cough. CARDIOVASCULAR: S1, S2 present. Atrially paced on telemetry. Sternum stable. Palpable peripheral pulses bilaterally. Bilateral lower extremity edema present. No calf pain or tenderness noted GASTROINTESTINAL: Abdomen soft, nontender, nondistended. Active bowel sounds present 4 quadrants. Tolerating diet GENITOURINARY: Continues to void although amount not documented in [employer] INTEGUMENTARY: Skin is warm and dry NEUROLOGIC: Cranial nerves II through XII intact MUSKULOSKELETAL: Able to move all extremities, strength equal bilaterally, gait normal PSYCHIATRIC: Alert and oriented to person place and time, appropriate affect, intact judgment and insight - Allied health notes Allied health notes reviewed: nursing - Labs CBC & Chem 7: 06/23/24 03:23 06/23/24 03:23 Labs: Abnormal Lab Results - Last 24 Hours (Table) 06/23/24 Range/Units 15:15 Urine Blood Large H (Negative) Urine RBC 136 H (0-5) /hpf Urine WBC 33 H (0-5) /hpf Hyaline Casts 25 H (0-2) /lpf Urine Mucus Rare H (None) /hpf - Imaging and Cardiology Chest x-ray: report reviewed, image reviewed Assessment and Plan Assessment: Recurrent left-sided pleural effusion previous left-sided thoracentesis on May 10 and June 10, status post left-sided thoracentesis by Dr. Marinelli with removal of 1.3 L fluid Acute on chronic heart failure Shortness of breath, secondary to above History of severe aortic valve regurgitation along with moderate mitral valve regurgitation status post aortic valve replacement and mitral valve repair on May 03, 2024 Hypertension Chronic heart failure with reduced ejection fraction Chronic kidney disease stage III Iron deficiency anemia Paroxysmal atrial fibrillation with previous cardioversion and permanent pacemaker placement on [facility] outpatient for anticoagulation Embolic stroke in 2017 Lifelong non-smoker Plan: No surgical intervention planned Recommend accurate intake and output Continue current medication therapy Encourage incentive spirometry use Sternal precautions Patient may be discharged to home from our standpoint when okay with other serv ices Medical management of other comorbidities per internal medicine, cardiology, pulmonology
[2024-06-24 11:03] LABS: African American GFR (CKD) 55 (>60 ml/min/1.73 sqM); Anion Gap 10 mmol/L; Blood Urea Nitrogen 43 mg/dL (7-17); Calcium 8.9 mg/dL (8.4-10.2); Carbon Dioxide 27 mmol/L (22-30); Chloride 99 mmol/L (98-107); Glucose 129 mg/dL (74-99); Non-African American GFR(CKD) 48 (>60 ml/min/1.73 sqM); Potassium 3.6 mmol/L (3.5-5.1); Sodium 136 mmol/L (137-145)
--- NOTE | 2024-06-24 12:27 | P.PN ---
Subjective Progress Note Date: 06/24/24 Patient is a 79-year-old female with past medical history significant for atrial fibrillation, embolic stroke, permanent pacemaker, hypertension, valvular heart disease, and recurrent left-sided pleural effusion. On May 03, patient underwent aortic valve replacement, mitral valve repair, and exclusion of left atrial appendage with Dr. Hammond. Postoperatively, developed a left-sided pleural effusion, which was drained by Dr. Peter on 05/10/2024. A total of 700 mL was removed from the pleural space at this time. Subsequently, underwent repeat thoracentesis on the left with Dr. Barrientos on 06/10/2024, a total of 1.3 L was removed. She does take Lasix 20 mg daily on an outpatient basis, this was recently increased to 20 mg twice daily by her esl professor Dr. Sweeney approximately 3 to [address] Barrientos in the pulmonary office yesterday in follow-up. She has been more short of breath as of late. Chest x- ray showing postsurgical changes, permanent pacemaker, small right pleural effusion, with recurrent moderate to large size pleural fluid collection on the left. Also, endorses increased lower extremity edema and leg weakness. She has gained approximately 5 pounds. She has been sleeping on her couch with the head elevated due to shortness of breath. Denies infectious-like symptoms. Denies fevers or chills. Denies chest pain. [facility] for IV diuretics and possible left-sided thoracentesis. Additional workup including a CBC with a WBC count 5.4, hemoglobin 12.8, platelets 169. PT 5.9, INR 1.5, APTT 29.9. CMP: Sodium 139, potassium 4.2, chloride 102, serum bicarb 24, BUN 44, creatinine 0.95, glucose 82. LFTs unremarkable. EKG: Atrially paced rhythm, rate 70 bpm. NT proBNP 4110. Chest x-ray done in the ED patient currently being evaluated on the general medical floor. Endorses above- mentioned symptoms. She is on room air. Endorses shortness of breath, particularly with exertion. Does have significant lower extremity pitting edema. Receiving Lasix 40 mg 3 times daily. Also, anticoagulated on Eliquis. Her last dose of Eliquis was last night. Current vital signs: Temperature 97.4 F, heart rate 69 bpm, blood pressure 137/67 mmHg, nontachypneic, SpO2 recorded at 96% on room air. The patient is seen today June 24, 2024 in follow-up on the regular medical floor. She is currently sitting up in bed. Awake and alert in no acute distress. Maintaining O2 saturations in the 90s on room air. She remains on Lasix 40 mg IV every 8 hours. Sodium 136. Potassium 3.6. Bicarb 27. BUN 43. Creatinine 1.11. Glucose 129. Her Eliquis was placed on hold. A left-sided thoracentesis was performed today with 1.3 L of cloudy yellow fluid returned. Not sent for analysis. Objective - Vital Signs Vital signs: Vital Signs Temp 97.6 F 06/24/24 06:57 Pulse 71 06/24/24 06:57 Resp 17 06/24/24 06:57 BP 104/74 06/24/24 06:57 Pulse Ox 95 06/24/24 06:57 FiO2 Intake & Output 06/23/24 06/24/24 06/24/24 18:59 06:59 18:59 Intake Total 240 240 Balance 240 240 Weight 55.338 kg Intake: Oral 240 240 Other: Voiding Method Toilet Toilet Toilet - Exam GENERAL EXAM: Alert, active, 79-year-old female, on room air oxygen, comfortable in no apparent distress. HEAD: Normocephalic. EYES: Normal reaction of pupils, equal size. NOSE: Clear with pink turbinates. THROAT: No erythema or exudates. NECK: No masses, no JVD. CHEST: No chest wall deformity. LUNGS: Equal air entry with crackles in the left lung base. CVS: S1 and S2 normal with no audible murmur, regular rhythm. ABDOMEN: No hepatosplenomegaly, normal bowel sounds, no guarding or rigidity. SPINE: No scoliosis or deformity SKIN: No rashes CENTRAL NERVOUS SYSTEM: No focal deficits, tone is normal in all 4 extremities. EXTREMITIES: There is no peripheral edema. No clubbing, no cyanosis. Cely pheral pulses are intact. - Labs CBC & Chem 7: 06/23/24 03:23 06/24/24 10:39 Labs: Abnormal Lab Results - Last 24 Hours (Table) 04/30/25 05/01/25 Range/Units 15:15 10:39 Sodium 136 L (137-145) mmol/L BUN 43 H (7-17) mg/dL Creatinine 1.11 H (0.52-1.04) mg/dL Glucose 129 H (74-99) mg/dL Urine Blood Large H (Negative) Urine RBC 136 H (0-5) /hpf Urine WBC 33 H (0-5) /hpf Hyaline Casts 25 H (0-2) /lpf Urine Mucus Rare H (None) /hpf Assessment and Plan Assessment: Recurrent moderate to large size left pleural effusion; previously underwent left-sided thoracentesis on 05/10/2024 and again on 06/10/2024. A third left-sided thoracentesis performed today June 24, 2024 with 1.3 L of fluid returned. Not sent for analysis. Remains on IV diuretics Acute dyspnea, secondary to above, chest x-ray showing bilateral pleural ef fusions, left greater than right, cardiomegaly, postsurgical changes, and permanent pacemaker History of valvular heart disease with previous aortic valve replacement and mitral valve repair, with exclusion left atrial appendage performed on 05/03/2024 History of heart failure with reduced ejection fraction, most recent echocardiogram performed 05/10/2024 with an estimated ejection fraction of 45 to 50%, bioprosthetic aortic valve was stable without significant gradient regurgitation, mitral valve repair, was also without significant gradient regurgitation. History of paroxysmal atrial fibrillation, status post cardioversion, chronically anticoagulated on Eliquis History of dual-chamber permanent pacemaker History of embolic stroke History of chronic kidney disease stage III, stable Hypertension Plan: The patient was seen in the evaluated Chest ultrasound and labs reviewed Medications reviewed Left-sided thoracentesis performed today 1.3 L of fluid read removed Not sent for analysis Follow-up chest x-ray shows improvement, no pneumothorax Cleared for discharge from the pulmonary standpoint I have personally seen and examined the patient, performed the documentation and the assessment and plan as written. Number of minutes spent on the visit: 10 Dictation was produced using [employer] dictation software. Please excuse any grammatical, word or spelling errors.
--- NOTE | 2024-06-24 12:42 | P.PN ---
Subjective Patient is seen for follow-up for chronic kidney disease and volume overload. She was admitted with shortness of breath and recurrent left pleural effusion. Currently maintained on IV Lasix every 8 hours. Renal function is stable with creatinine at 1.1 mg/dL today. Overall improvement in shortness of breath per patient. She is complaining of feeling tired today. Objective - Vital Signs Vital signs: Vital Signs Temp 97.6 F 06/24/24 06:57 Pulse 71 06/24/24 06:57 Resp 17 06/24/24 06:57 BP 104/74 06/24/24 06:57 Pulse Ox 95 06/24/24 06:57 FiO2 Intake & Output 06/23/24 06/24/24 06/24/24 18:59 06:59 18:59 Intake Total 240 240 Balance 240 240 Weight 55.338 kg Intake: Oral 240 240 Other: Voiding Method Toilet Toilet Toilet - Exam Patient is awake, comfortable, no acute distress Examination of the heart S1 and S2 Examination of the lungs shows decreased breath sounds at the bases left more than right Abdomen is soft nontender Examination of lower extremities shows edema 2+ bilateral [employer] exam grossly intact - Labs CBC & Chem 7: 06/23/24 03:23 06/24/24 10:39 Labs: Abnormal Lab Results - Last 24 Hours (Table) 06/23/24 06/24/24 Range/Units 15:15 10:39 Sodium 136 L (137-145) mmol/L BUN 43 H (7-17) mg/dL Creatinine 1.11 H (0.52-1.04) mg/dL Glucose 129 H (74-99) mg/dL Urine Blood Large H (Negative) Urine RBC 136 H (0-5) /hpf Urine WBC 33 H (0-5) /hpf Hyaline Casts 25 H (0-2) /lpf Urine Mucus Rare H (None) /hpf Assessment and Plan Assessment: 1. Chronic kidney disease stage III with baseline creatinine around 1. Etiology nephrosclerosis 2. Volume overload 3. Recurrent left pleural effusion 4. Status post aortic valve replacement and mitral valve repair on May 03, 2024 Plan: Continue with current dose of Lasix Accurate I's and O's Repeat labs in a.m. Avoid hypotension Decreased dose of hydralazine as blood pressure is on the lower side.
--- NOTE | 2024-06-24 13:34 | P.PN ---
Subjective Progress Note Date: 06/24/24 Reason for Consult (text): CHF History of present illness: This is a 79-year-old female patient of Dr. Perez with past medical history of paroxysmal atrial fibrillation, permanent pacemaker, valvular heart disease status post aortic valve replacement and mitral valve repair, history of heart failure with reduced EF and cardiomyopathy, dilated ascending aorta. We have been asked to evaluate the patient for CHF. Patient states that she has had increasing lower extremity edema for the past few days to the point that she could not walk because of fluid and also her legs were aching. She spoke with Dr. Perez on the phone 2 days ago and her Lasix was doubled. She states she has had lower extremity edema since she had her open heart surgery. She states her breathing has been significantly bad since Easter and feels like she is going backwards. She does state that she feels some improvement since open-heart surgery. He had a recent thoracentesis done on 06/[address] Flores and states that she has had some improvement of her breathing since then. Patient has been started on IV Lasix received 40 mg x 2 and is now on 40 mg every 8 hours. She feels that she is urinating quite a bit and the edema to her legs has improved a little bit. She still has significant edema up to her hip. Discussed use of Farxiga. She denies frequent urinary tract infections and denies dysuria at this time. She is concerned that she does not have insurance coverage for prescriptions. She does state that she has hematuria which we will obtain UA to evaluate. Blood pressure 104/71, heart rate 71, pulse ox 97% on room air. Patient has has had ultrasound of the chest done in April for thoracentesis. Eliquis is on hold. -EKG: Atrial paced rhythm. -Chest x-ray: Right upper lobe infiltrate. Increased opacity left lower lobe could reflect underlying atelectasis and/or infiltrates. Small effusions noted. -Chest ultrasound reveals a left pleural effusion pocket 10.2 cm. -Laboratory studies: WBC 4.5, hemoglobin 9.2, sodium 141, potassium 3.5, BUN 38 creatinine 1.2, AST 37, alkaline phosphatase 158. -Home cardiac medications: Amiodarone 200 mg daily, Eliquis 5 mg twice daily, aspirin 81 mg daily, Lasix 20 mg twice daily, hydralazine 25 mg 3 times daily, metoprolol tartrate 25 mg twice daily. -Echocardiogram performed on 05/10/2024 revealed EF 40 to 45%, mild concentric LVH, atypical septal motion probably related to previous bypass surgery and conduction abnormality. Atria enlarged. Bioprosthetic aortic valve stable. No significant gradient. Mild regurgitation. Mitral annular calcification with mitral valve repair evident. No significant gradient. Mild mitral regurgitation. Mild tricuspid regurgitation. No significant pulmonary hypertension. No pericardial effusion. 06/24 Patient seen and examined. Blood pressure 104/74, heart rate 71, pulse ox 95% on room air. Patient underwent thoracentesis with removal of 1.[address] Marinelli and has been cleared to resume Eliquis this evening. Chest x-ray performed this morning reveals significantly improved left-sided pleural effusion with areas of discoid atelectasis. No evidence of pneumothorax. Patient has been maintained on IV Lasix 40 mg every 8 hours. She states that she has been urinating a lot. She still has lower extremity edema which is slightly improved. Repeat blood work reveals sodium 136, potassium 3.6, BUN 43 creatinine 1.11 Regarding Farxiga/Jardiance, patient has a $600+ [id number] cost and Farxiga will be canceled for now. This may be an option outpatient Physical examination: Gen: This is 79-year-old female in no acute distress VS: reviewed HEENT: Head is atraumatic, normocephalic. Pupils equal, round. Sclerae is anicteric. NECK: Supple. No JVD. LUNGS: Clear to auscultation. No wheezes or rhonchi. No intercostal retractions . HEART: Regular rate and rhythm. No murmur. ABDOMEN: Soft No tenderness. EXTREMITIES: 2+ lower extremity edema. No calf tenderness. NEUROLOGICAL: Patient is awake, alert and oriented x3. Assessment: Acute on chronic heart failure with reduced ejection fraction, EF 40% Recurrent left-sided pleural effusion s/p thoracentesis on 05/10 and 06/10 Patient is status post thoracentesis 06/24 Severe aortic valve regurgitation, status post aortic valve replacement 05/03 Moderate mitral valve regurgitation, status post mitral valve repair 05/03 Hypertension Chronic kidney disease stage III Paroxysmal atrial fibrillation Sick sinus syndrome status post permanent dual-chamber pacemaker Embolic stroke with full recovery in 2017 Mild elevation of liver function test Plan: Continue patient's home cardiac medications Eliquis is scheduled to resume this evening Discontinue Farxiga as patient is unable to afford Continue IV Lasix 40 mg every 8 hours for at least another 24 - 48 hours Monitor NAHID, daily weights, electrolytes and renal function No need to repeat echocardiogram Further recommendations to follow based upon clinical course Nurse practitioner note has been reviewed, I agree with documented findings and plan of care. Patient was seen and examined. Objective - Vital Signs Vital signs: Vital Signs Temp 97.6 F 06/24/24 06:57 Pulse 71 06/24/24 06:57 Resp 17 06/24/24 06:57 BP 104/74 06/24/24 06:57 Pulse Ox 95 06/24/24 06:57 FiO2 Intake & Output 06/23/24 06/24/24 06/24/24 18:59 06:59 18:59 Intake Total 240 240 Balance 240 240 Weight 55.338 kg Intake: Oral 240 240 Other: Voiding Method Toilet Toilet - Labs CBC & Chem 7: 06/23/24 03:23 06/24/24 10:39 Labs: Abnormal Lab Results - Last 24 Hours (Table) 06/23/24 Range/Units 15:15 Urine Blood Large H (Negative) Urine RBC 136 H (0-5) /hpf Urine WBC 33 H (0-5) /hpf Hyaline Casts 25 H (0-2) /lpf Urine Mucus Rare H (None) /hpf
[2024-06-24] MEDS ORDERED: hydrALAZINE HCL 10 MG TAB PO SCH (16:00)
--- NOTE | 2024-06-24 17:12 | P.PN ---
Progress Note - Text Progress Note Date: 06/24/24 Chief Complaint: Short of breath pleasant 79 year-old patient, follows with Dr. Thayer. Medical history includes atrial fibrillation, hard of hearing, hypertension osteoarthritis kidney disease, tinnitus diverticulosis kidney stones tachybradycardia syndrome stage IIIa kidney disease follows with Dr. Kimbrough macular degeneration. May 21, 2024 underwent arctic valve replacement with a bioprosthesis, mitral valve repair with annuloplasty, exclusion of left atrial appendage using a clip,. Patient had a slow recovery. Was discharged from here to rehab at [facility]. Also was in atrial fibrillation. Patient now presents with worsening short of breath. Decreased appetite. Edema lower extremity. Orthopnea. June 23: Admitted with CHF exacerbation. On IV Lasix 40 mg every 8. Significant fluid output. Breathing better. Erma as above. Edema present. Pulmonary is planning for thoracentesis tomorrow. Eating better June 1: Breathing much better. Did walk in the hallway. Edema is going down. At 1.3 L of thoracentesis done. Eating better. Spoke to the patient daughter. Per cardiology is to continue with IV Lasix Active Medications Acetaminophen (Acetaminophen Tab 325 Mg Tab) 650 mg PO Q6HR PRN PRN Reason: Mild Pain or Fever > 100.5 Last Admin: 06/24/24 06:55 Dose: 650 mg Amiodarone HCl (Amiodarone 200 Mg Tab) 200 mg PO DAILY [facility] Last Admin: 06/24/24 09:58 Dose: 200 mg Apixaban (Apixaban 5 Mg Tab) 5 mg PO BID [facility]; Protocol Aspirin (Aspirin 81 Mg) 81 mg PO DAILY [facility] Last Admin: 06/24/24 09:58 Dose: 81 mg Furosemide (Furosemide 10 Mg/Ml 4 Ml Vial) 40 mg IV Q8H [facility] Last Admin: 06/24/24 13:56 Dose: 40 mg Metoprolol Tartrate (Metoprolol Tartrate 25 Mg Tab) 25 mg PO BID [facility] Last Admin: 06/24/24 09:58 Dose: 25 mg Naloxone HCl (Naloxone 0.4 Mg/Ml 1 Ml Vial) 0.2 mg IV Q2M PRN PRN Reason: Opioid Reversal Naloxone HCl (Naloxone 0.4 Mg/Ml 1 Ml Vial) 0.2 mg IV Q2M PRN PRN Reason: Opioid Reversal Pramipexole Dihydrochloride (Pramipexole 0.5 Mg Tab) 0.5 mg PO [facility] Last Admin: 06/23/24 21:27 Dose: 0.5 mg Social history: Lives alone. Denies any alcohol or smoking history. Physical examination: VITAL SIGNS: 98.1, 70, 16, 91 x 63, 96% room air GENERAL:, Sitting up, breathing better EYES: Pupils equal. Conjunctiva clifford l. HEENT: External appearance of nose and ears normal, oral cavity grossly normal. Decreased hearing NECK: JVD raised; masses not palpable. HEART: Heart sounds irregular; edema decreased LUNGS: Respiratory rate, normal, improved air entry ABDOMEN: Soft, nontender, liver spleen not palpable, no masses palpable. Daily PSYCH: Alert and oriented x3; mood and affect, tired. MUSCULOSKELETAL:No Clubbing/cyanosis;muscles-grossly intact. OA Neurological: Cranial nerves grossly intact. Espinoza is grossly intact. Patient did ambulate in the hallway INVESTIGATIONS, reviewed in the clinical context: June 24: Potassium 3.6 BUN 43 creatinine 1.11 June 23: Potassium 3.5 BUN 38.4 creatinine 1.2 white count 4.5 hemoglobin 11.2 June 22, 2024: White count 5.3 hemoglobin 12.8 platelets 169 sodium 139 potassium 4.2 BUN 44 creatinine 0.95 proBNP 4110 EKG tracing personally reviewed by me-atrial pacemaker Chest x-ray film personally reviewed by me-large left pleural effusion Previous April 27, 2024: Hemoglobin 14.5 platelets 210 2D echocardiogram April EF 40 to 45%Normally functioning bioprosthetic aortic valve. Without stenosis. Moderate TR. Cardiac catheterization April 2022 mild nonobstructive CAD Assessment plan: - Large left pleural effusion, likely CHF: May 10 patient did have thoracentesis June 24 1.3 L thoracentesis done by Dr. Marinelli -aorctic valve replacement with a bioprosthesis, mitral valve repair with annuloplasty, exclusion of left atrial appendage using a clip, on May 03, [address] Hammond Prior moderate mitral regurgitation, severe tricuspid regurgitation, severe aortic regurgitation - Acute on chronic congestive heart failure exacerbation from systolic dysfu nction EF 40 to 45% secondary to valvular disease: Improving IV Lasix 40 mg every 8. Fluid restriction 2000 cc a day. Strict I's and O's -Prior atrial fibrillation., Lopressor 25 mg twice daily. Cordarone -Acute postprocedure blood loss anemia expected from surgery Follow H&H -Hard of hearing -Severe secondary pulmonary hypertension -Primary osteoarthritis Tylenol as needed -Colonic diverticulosis, asymptomatic -Chronic kidney disease stage IIIa, baseline creatinine from 1 2-1.3, secondary nephrosclerosis Follows with Dr. Kimbrough outpatient -Pacemaker 2017, for sick sinus syndrome -Full code Doing much better. Did ambulate in the hallway. Continue IV Lasix per cardio. Past Medical History Past Medical History: Atrial Fibrillation, Heart Failure, CVA/TIA, Eye Disorder, Hearing Disorder / Deafness, Hyperlipidemia, Hypertension, Osteoarthritis (OA), Renal Disease, Skin Disorder Additional Past Medical History / Comment(s): SOB in the evening and through the night. Tinnitus, bilateral hearing aid use. Diverticular disease, hemorrhoids. Hx kidney stones. Anemia. 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 Stage 3A kidney disease. Macular degeneration left eye. Small hiatal hernia. History of Any Multi-Drug Resistant Organisms: None Reported Past Surgical History: Adenoidectomy, Appendectomy, Section, Coronary Bypass/CABG, Pacemaker, Tonsillectomy Additional Past Surgical History / Comment(s): SINUS SURGERY, section X3, CHRISTY, colonoscopy. 05/03/24 valve repair and replacement, Past Anesthesia/Blood Transfusion Reactions: No Reported Reaction Additional Past Anesthesia/Blood Transfusion Reaction / Comment(s): Hx blood transfusion with no issues 50 yrs ago. Type of Cardiac Device: Permanent Pacemaker Device Placement Date:: 01/2017 Left chest Past Psychological History: Anxiety, Depression Smoking Status: Never smoker
[2024-06-24] MEDS: APIXABAN 5 MG TAB PO SCH (21:14)
[2024-06-25 05:06] LABS: African American GFR (CKD) 44 (>60 ml/min/1.73 sqM); Anion Gap 9 mmol/L; Blood Urea Nitrogen 49 mg/dL (7-17); Calcium 9.2 mg/dL (8.4-10.2); Carbon Dioxide 30 mmol/L (22-30); Chloride 97 mmol/L (98-107); Glucose 82 mg/dL (74-99); Non-African American GFR(CKD) 38 (>60 ml/min/1.73 sqM); Potassium 3.8 mmol/L (3.5-5.1); Sodium 136 mmol/L (137-145)
[2024-06-25] MEDS: MIDODRINE 5 MG TAB PO SCH (09:21)
--- NOTE | 2024-06-25 09:38 | P.PN ---
Subjective Patient is seen for follow-up for chronic kidney disease and volume overload. She was admitted with shortness of breath and recurrent left pleural effusion. Currently maintained on IV Lasix every 8 hours. Serum creatinine increased to 1.3 today. Blood pressure noted to be significantly low with systolic in the 90s yesterday. Hydralazine was held. Overall fatigue slightly improved today. Objective - Vital Signs Vital signs: Vital Signs Temp 98.3 F 06/25/24 06:56 Pulse 70 06/25/24 06:56 Resp 20 06/25/24 06:56 BP 103/68 06/25/24 06:56 Pulse Ox 95 06/25/24 06:56 FiO2 Intake & Output 06/24/24 06/25/24 06/25/24 18:59 06:59 18:59 Intake Total 780 Output Total 550 200 Balance 230 -200 Weight 51.3 kg Intake: Oral 780 Output: Urine 550 200 Other: Voiding Method Toilet Toilet # Voids 1 - Exam Patient is awake, comfortable, no acute distress Examination of the heart S1 and S2 Examination of the lungs shows decreased breath sounds at the bases left more than right Abdomen is soft nontender Examination of lower extremities shows edema 2+ bilateral, improving TIME BROKER exam grossly intact - Labs CBC & Chem 7: 06/23/24 03:23 06/25/24 04:15 Labs: Abnormal Lab Results - Last 24 Hours (Table) 06/24/24 06/25/24 Range/Units 10:39 04:15 Sodium 136 L 136 L (137-145) mmol/L Chloride 97 L (98-107) mmol/L BUN 43 H 49 H (7-17) mg/dL Creatinine 1.11 H 1.33 H (0.52-1.04) mg/dL Glucose 129 H (74-99) mg/dL Assessment and Plan Assessment: 1. Chronic kidney disease stage III with baseline creatinine around 1. Etiology nephrosclerosis 2. Volume overload 3. Recurrent left pleural effusion 4. Status post aortic valve replacement and mitral valve repair on May 03, 2024 5. Hypotension, hydralazine on hold. Continue to diurese patient Plan: Continue with current dose of Lasix DC hydralazine Add midodrine Continue with Lopressor, consider decreasing dose if blood pressure remains low. Heart rate mostly in the 70s currently. Accurate I's and O's Repeat labs in a.m.
--- NOTE | 2024-06-25 10:51 | OP ---
OPERATIVE REPORT DATE OF SERVICE : PROCEDURE PERFORMED: Left-sided thoracentesis. PREOPERATIVE DIAGNOSIS: Left pleural effusion. POSTOPERATIVE DIAGNOSIS: Left pleural effusion. ANESTHESIA USED: 2 mL of 2% lidocaine. DESCRIPTION OF PROCEDURE: The patient was placed in a sitting upright position, the area below the left scapula was prepared in a sterile fashion. Drapes were applied. At the level of the 8th intercostal space and tip of the scapula, the area was locally anesthetized. Then, a small tiny incision was made, a standard thoracentesis catheter and needle were used, advanced both into the pleural space until the fluid was obtained. Then, the catheter was advanced over the needle and the needle was pulled out of the pleural space. Freely flowing fluid was removed, roughly 1700 mL of serosanguineous fluid was drained from the left pleural space. Procedure was tolerated, no complications, chest x-ray postoperatively showed no pneumothorax and complete resolution of the pleural effusion. MMODL / IJN: [id number] /
[2024-06-25] MEDS: FUROSEMIDE 10 MG/ML 4 ML VIAL IV ONE (11:48)
--- NOTE | 2024-06-25 14:13 | P.PN ---
Subjective Progress Note Date: 06/25/24 Patient is a 79-year-old female with past medical history significant for atrial fibrillation, embolic stroke, permanent pacemaker, hypertension, valvular heart disease, and recurrent left-sided pleural effusion. On May 03, patient underwent aortic valve replacement, mitral valve repair, and exclusion of left atrial appendage with Dr. Hammond. Postoperatively, developed a left-sided pleural effusion, which was drained by Dr. Peter on 05/10/2024. A total of 700 mL was removed from the pleural space at this time. Subsequently, underwent repeat thoracentesis on the left with Dr. Barrientos on 06/10/2024, a total of 1.3 L was removed. She does take Lasix 20 mg daily on an outpatient basis, this was recently increased to 20 mg twice daily by her yard jacker Dr. Sweeney approximately 3 to [address] Barrientos in the pulmonary office yesterday in follow-up. She has been more short of breath as of late. Chest x- ray showing postsurgical changes, permanent pacemaker, small right pleural effusion, with recurrent moderate to large size pleural fluid collection on the left. Also, endorses increased lower extremity edema and leg weakness. She has gained approximately 5 pounds. She has been sleeping on her couch with the head elevated due to shortness of breath. Denies infectious-like symptoms. Denies fevers or chills. Denies chest pain. [facility] and possible left-sided thoracentesis. Additional workup including a CBC with a WBC count 5.4, hemoglobin 12.8, platelets 169. PT 5.9, INR 1.5, APTT 29.9. CMP: Sodium 139, potassium 4.2, chloride 102, serum bicarb 24, BUN 44, creatinine 0.95, glucose 82. LFTs unremarkable. EKG: Atrially paced rhythm, rate 70 bpm. NT proBNP 4110. Chest x-ray done in the ED patient currently being evaluated on the general medical floor. Endorses above- mentioned symptoms. She is on room air. Endorses shortness of breath, particularly with exertion. Does have significant lower extremity pitting edema. Receiving Lasix 40 mg 3 times daily. Also, anticoagulated on Eliquis. Her last dose of Eliquis was last night. Current vital signs: Temperature 97.4 F, heart rate 69 bpm, blood pressure 137/67 mmHg, nontachypneic, SpO2 recorded at 96% on room air. The patient is seen today June 24, 2024 in follow-up on the regular medical floor. She is currently sitting up in bed. Awake and alert in no acute distress. Maintaining O2 saturations in the 90s on room air. She remains on Lasix 40 mg IV every 8 hours. Sodium 136. Potassium 3.6. Bicarb 27. BUN 43. Creatinine 1.11. Glucose 129. Her Eliquis was placed on hold. A left-sided thoracentesis was performed today with 1.3 L of cloudy yellow fluid returned. Not sent for analysis. The patient is seen today June 25, 2024 in follow-up on the regular medical floor. She has been up ambulating in her room. Denies any worsening shortness of breath, cough or congestion. Maintaining good O2 saturations in the mid 90s on room air. She has been afebrile. Hemodynamically stable. Sodium 136. Potassium 3.8. Bicarb 30. BUN 49. Creatinine 1.33. Glucose 82. She remains on Lasix 40 mg IV every 8 hours. Anticoagulated with Eliquis. Objective - Vital Signs Vital signs: Vital Signs Temp 98.3 F 06/25/24 06:56 Pulse 71 06/25/24 13:10 Resp 20 06/25/24 06:56 BP 100/70 06/25/24 13:10 Pulse Ox 97 06/25/24 13:10 FiO2 Intake & Output 06/24/24 06/25/24 06/25/24 18:59 06:59 18:59 Intake Total 780 Output Total 550 200 Balance 230 -200 Weight 51.3 kg Intake: Oral 780 Output: Urine 550 200 Other: Voiding Method Toilet Toilet # Voids 1 - Exam GENERAL EXAM: Alert, pleasant 79-year-old female, on room air oxygen, comfortable in no apparent distress. HEAD: Normocephalic. EYES: Normal reaction of pupils, equal size. NOSE: Clear with pink turbinates. THROAT: No erythema or exudates. NECK: No masses, no JVD. CHEST: No chest wall deformity. LUNGS: Equal air entry with crackles in the left lung base. CVS: S1 and S2 normal with no audible murmur, regular rhythm. ABDOMEN: No hepatosplenomegaly, normal bowel sounds, no guarding or rigidity. SPINE: No scoliosis or deformity SKIN: No rashes CENTRAL NERVOUS SYSTEM: No focal deficits, tone is normal in all 4 extremities. EXTREMITIES: There is no peripheral edema. No clubbing, no cyanosis. Peripheral pulses are intact. - Labs CBC & Chem 7: 06/23/24 03:23 06/25/24 04:15 Labs: Abnormal Lab Results - Last 24 Hours (Table) 06/25/24 Range/Units 04:15 Sodium 136 L (137-145) mmol/L Chloride 97 L (98-107) mmol/L BUN 49 H (7-17) mg/dL Creatinine 1.33 H (0.52-1.04) mg/dL Assessment and Plan Assessment: Recurrent moderate to large size left pleural effusion; previously underwent left-sided thoracentesis on 05/10/2024 and again on 06/10/2024. A third left- sided thoracentesis performed this admission June 24, 2024 with 1.3 L of fluid returned. Not sent for analysis. Remains on IV diuretics Acute dyspnea, secondary to above, chest x-ray showing bilateral pleural effusions, left greater than right, cardiomegaly, postsurgical changes, and permanent pacemaker Acute on chronic kidney disease secondary to hypotension and diuretics Hypotension, hydralazine on hold. Midodrine added Chronic kidney disease secondary to nephrosclerosis History of valvular heart disease with previous aortic valve replacement and mitral valve repair, with exclusion left atrial appendage performed on 05/03/2024 History of heart failure with reduced ejection fraction, most recent echocardiogram performed 05/10/2024 with an estimated ejection fraction of 45 to 50%, bioprosthetic aortic valve was stable without significant gradient regurgitation, mitral valve repair, was also without significant gradient regurgitation. History of paroxysmal atrial fibrillation, status post cardioversion, chronically anticoagulated on Eliquis History of dual-chamber permanent pacemaker History of embolic stroke History of chronic kidney disease stage III, stable Hypertension Plan: The patient was seen in the evaluated Medications and labs reviewed Stable and on room air Blood pressure improved Hydralazine on hold Midodrine added Remains on IV diuretics Nephrology is following I have personally seen and examined the patient, performed the documentation and the assessment and plan as written. Number of minutes spent on the visit: 10 Dictation was produced using [employer] software. Please excuse any grammatical, word or spelling errors.
--- NOTE | 2024-06-25 14:48 | P.PN ---
Subjective Progress Note Date: 06/25/24 Reason for Consult (text): CHF History of present illness: This is a 79-year-old female patient of Dr. Perez with past medical history of paroxysmal atrial fibrillation, permanent pacemaker, valvular heart disease status post aortic valve replacement and mitral valve repair, history of heart failure with reduced EF and cardiomyopathy, dilated ascending aorta. We have been asked to evaluate the patient for CHF. Patient states that she has had increasing lower extremity edema for the past few days to the point that she could not walk because of fluid and also her legs were aching. She spoke with Dr. Perez on the phone 2 days ago and her Lasix was doubled. She states she has had lower extremity edema since she had her open heart surgery. She states her breathing has been significantly bad since Easter and feels like she is going backwards. She does state that she feels some improvement since open-heart surgery. He had a recent thoracentesis done on 06/[address] Flores and states that she has had some improvement of her breathing since then. Patient has been started on IV Lasix received 40 mg x 2 and is now on 40 mg every 8 hours. She feels that she is urinating quite a bit and the edema to her legs has improved a little bit. She still has significant edema up to her hip. Discussed use of Farxiga. She denies frequent urinary tract infections and denies dysuria at this time. She is concerned that she does not have insurance coverage for prescriptions. She does state that she has hematuria which we will obtain UA to evaluate. Blood pressure 104/71, heart rate 71, pulse ox 97% on room air. Patient has has had ultrasound of the chest done in April for thoracentesis. Eliquis is on hold. -EKG: Atrial paced rhythm. -Chest x-ray: Right upper lobe infiltrate. Increased opacity left lower lobe could reflect underlying atelectasis and/or infiltrates. Small effusions noted. -Chest ultrasound reveals a left pleural effusion pocket 10.2 cm. -Laboratory studies: WBC 4.5, hemoglobin 9.2, sodium 141, potassium 3.5, BUN 38 creatinine 1.2, AST 37, alkaline phosphatase 158. -Home cardiac medications: Amiodarone 200 mg daily, Eliquis 5 mg twice daily, aspirin 81 mg daily, Lasix 20 mg twice daily, hydralazine 25 mg 3 times daily, metoprolol tartrate 25 mg twice daily. -Echocardiogram performed on 05/10/2024 revealed EF 40 to 45%, mild concentric LVH, atypical septal motion probably related to previous bypass surgery and conduction abnormality. Atria enlarged. Bioprosthetic aortic valve stable. No significant gradient. Mild regurgitation. Mitral annular calcification with mitral valve repair evident. No significant gradient. Mild mitral regurgitation. Mild tricuspid regurgitation. No significant pulmonary hypertension. No pericardial effusion. 06/24 Patient seen and examined. Blood pressure 104/74, heart rate 71, pulse ox 95% on room air. Patient underwent thoracentesis with removal of 1.[address] Marinelli and has been cleared to resume Eliquis this evening. Chest x-ray performed this morning reveals significantly improved left-sided pleural effusion with areas of discoid atelectasis. No evidence of pneumothorax. Patient has been maintained on IV Lasix 40 mg every 8 hours. She states that she has been urinating a lot. She still has lower extremity edema which is slightly improved. Repeat blood work reveals sodium 136, potassium 3.6, BUN 43 creatinine 1.11 Regarding Farxiga/Jardiance, patient has a $600+ [id number] cost and Farxiga will be canceled for now. This may be an option outpatient 06/25 Patient seen and examined. Patient has been maintained on IV Lasix. Hyd ralazine and Lopressor were hold last night and this morning and subsequently hydralazine has been discontinued by nephrology and midodrine was started. Blood pressure is 100/70, heart rate in the 70s, pulse ox 97% on room air. Patient states that she has been feeling better she has walked around the halls several times. She states she does feel a little lightheaded. She has been urinating well. Physical examination: Gen: This is 79-year-old female in no acute distress VS: reviewed HEENT: Head is atraumatic, normocephalic. Pupils equal, round. Sclerae is anicteric. NECK: Supple. No JVD. LUNGS: Clear to auscultation. No wheezes or rhonchi. No intercostal retractions. HEART: Regular rate and rhythm. No murmur. ABDOMEN: Soft No tenderness. EXTREMITIES: 2+ lower extremity edema. No calf tenderness. NEUROLOGICAL: Patient is awake, alert and oriented x3. Assessment: Acute on chronic heart failure with reduced ejection fraction, EF 40% Recurrent left-sided pleural effusion s/p thoracentesis on 05/10 and 06/10 Patient is status post thoracentesis during this admission on 06/24 Severe aortic valve regurgitation, status post aortic valve replacement 05/03 Moderate mitral valve regurgitation, status post mitral valve repair 05/03 Hypertension Chronic kidney disease stage III Paroxysmal atrial fibrillation Sick sinus syndrome status post permanent dual-chamber pacemaker Embolic stroke with full recovery in 2017 Mild elevation of liver function test Plan: Continue amiodarone 200 mg daily, Eliquis 5 mg twice daily, aspirin 81 mg daily Decrease Lopressor to 12.5 mg twice daily Continue IV Lasix 40 mg every 8 hours Discontinue Farxiga as patient is unable to afford Monitor NAHID, daily weights, electrolytes and renal function Hydralazine has been discontinued and patient started on midodrine by nephrology for hypotension Obtain repeat echocardiogram Further recommendations to follow based upon clinical course Nurse practitioner note has been reviewed, I agree with documented findings and plan of care. Patient was seen and examined. Objective - Vital Signs Vital signs: Vital Signs Temp 98.3 F 06/25/24 06:56 Pulse 70 06/25/24 06:56 Resp 20 06/25/24 06:56 BP 103/68 06/25/24 06:56 Pulse Ox 95 06/25/24 06:56 FiO2 Intake & Output 06/24/24 06/25/24 06/25/24 18:59 06:59 18:59 Intake Total 780 Output Total 550 200 Balance 230 -200 Weight 51.3 kg Intake: Oral 780 Output: Urine 550 200 Other: Voiding Method Toilet Toilet # Voids 1 - Labs CBC & Chem 7: 06/23/24 03:23 06/25/24 04:15 Labs: Abnormal Lab Results - Last 24 Hours (Table) 06/24/24 06/25/24 Range/Units 10:39 04:15 Sodium 136 L 136 L (137-145) mmol/L Chloride 97 L (98-107) mmol/L BUN 43 H 49 H (7-17) mg/dL Creatinine 1.11 H 1.33 H (0.52-1.04) mg/dL Glucose 129 H (74-99) mg/dL
--- NOTE | 2024-06-25 17:06 | CA ---
Transthoracic Echo Report Name: Jenise Kent Age: 79 Gender: F : 1945 Exam Date: 06/25/2024 14:46 Exam Location: [place] [facility] Ht (in): 62 Wt (lb): 122 Ordering Physician: Michael Holland MD Attending/Referring Phys: Income Tax Adjuster Donna Zazueta RDCS Procedure CPT: Indications: chf Cardiac Hx: AOV REPLACED, MV REPAIR, PACEMAKER Technical Quality: Good Contrast 1: Total Dose (mL): Contrast 2: Total Dose (mL): MEASUREMENTS (Male / Female) Normal Values 2D ECHO LV Diastolic Diameter PLAX 3.9 cm 4.2 - 5.9 / 3.9 - 5.3 cm LV Systolic Diameter PLAX 2.9 cm IVS Diastolic Thickness 1.2 cm 0.6 - 1.0 / 0.6 - 0.9 cm LVPW Diastolic Thickness 1.1 cm 0.6 - 1.0 / 0.6 - 0.9 cm LV Relative Wall Thickness 0.6 RV Internal Dim ED PLAX 3.1 cm LVOT Diameter 1.9 cm LA Systolic Diameter LX 3.8 cm 3.0 - 4.0 / 2.7 - 3.8 cm LV Diastolic Volume MOD BP 51.1 cm??? 67 - 155 / 56 - 104 cm??? LV Systolic Volume MOD BP 30.2 cm??? - 58 / 19 - 49 cm??? LV Ejection Fraction MOD BP 40.8 % >= 55 % LV Cardiac Index MOD BP 935.7 cm???/min???m??? LV Diastolic Volume MOD 4C 38.9 cm??? LV Systolic Volume MOD 4C 23.7 cm??? LV Ejection Fraction MOD 4C 39.1 % LV Cardiac Index MOD 4C 681.9 cm???/min???m??? LV Diastolic Length 4C 6.5 cm LV Systolic Length 4C 6.4 cm LV Diastolic Volume MOD 2C 54.2 cm??? LV Systolic Volume MOD 2C 27.8 cm??? LV Ejection Fraction MOD 2C 48.8 % LV Cardiac Index MOD 2C 1185.0 cm???/min???m??? LV Diastolic Length 2C 6.9 cm LV Systolic Length 2C 6.5 cm LA Volume 72.5 cm??? 18 - 58 / 22 - 52 cm??? LA Volume Index 46.5 cm???/m??? 16 - 28 cm???/m??? M-MODE LV Diastolic Diameter MM 3.9 cm 4.2 - 5.9 / 3.9 - 5.3 cm LV Systolic Diameter MM 3.1 cm LV Cardiac Index MM Teich 1280.0 cm???/min???m??? IVS Diastolic Thickness MM 0.8 cm 0.6 - 1.0 / 0.6 - 0.9 cm LVPW Diastolic Thickness MM 1.1 cm 0.6 - 1.0 / 0.6 - 0.9 cm LV Relative Wall Thickness MM 0.5 0.24 - 0.42 / 0.22 - 0.42 LV Mass Index MM 72.6 g/m??? 49 - 115 / 43 - 95 g/m??? Aortic Root Diameter MM 3.1 cm AV Cusp Separation MM 1.4 cm DOPPLER AV Peak Velocity 236.3 cm/s AV Peak Gradient 22.3 mmHg AV Mean Velocity 178.7 cm/s AV Mean Gradient 13.8 mmHg AV Velocity Time Integral 54.4 cm LVOT Peak Velocity 81.5 cm/s LVOT Peak Gradient 2.7 mmHg LVOT Velocity Time Integral 16.3 cm LVOT Stroke Volume 45.2 cm??? LVOT Stroke Volume Index 29.2 ml/m??? LVOT Cardiac Index 2027.3 cm???/min???m??? AV Area Cont Eq vti 0.8 cm??? AV Area Cont Eq pk 1.0 cm??? MV Peak Velocity 119.0 cm/s MV Peak Gradient 5.7 mmHg MV Mean Velocity 65.4 cm/s MV Mean Gradient 2.0 mmHg MV Velocity Time Integral 26.2 cm MV Area PHT 3.8 cm??? Mitral E Point Velocity 111.7 cm/s Mitral A Point Velocity 76.1 cm/s Mitral E to A Ratio 1.5 MV Deceleration Time 201.5 ms TR Peak Velocity 216.7 cm/s TR Peak Gradient 18.8 mmHg Right Ventricular Systolic Press 23.1 mmHg FINDINGS Left Ventricle Left ventricular ejection fraction is estimated at 35-40 %. Mildly increased septal wall thickness. Mildly increased posterior wall thickness. Moderately decreased fractional shortening. Severely decreased midwall fractional shortening. Mildly increased left ventricular relative wall thickness. Moderately decreased left ventricular ejection fraction. Right Ventricle Normal right ventricular size. Right ventricular systolic pressure within normal limits. Right Atrium Severe right atrial dilatation., no right atrial thrombus or mass seen. Left Atrium Moderately increased left atrial volume. Mildly increased left atrial area. No left atrial thrombus or mass present. Mitral Valve MV repair. Trace to mild mitral regurgitation. Aortic Valve Normally functioning bioprosthetic aortic valve without stenosis with a peak velocity of 2.4 m/s, peak gradient 22 mmHg, mean gradient 14 mmHg. Tricuspid Valve Structurally normal tricuspid valve. Severe tricuspid regurgitation. Pulmonic Valve Pulmonic valve not well visualized. Trace pulmonic regurgitation. Pericardium No pericardial effusion. Aorta Normal size aortic root and proximal ascending aorta. CONCLUSIONS Left ventricular ejection fraction 35 to 40% however somewhat influenced by septal dyskinesia. 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 Dimensionless index 0.29. Consider CHRISTY if clinically indicated Severe, torrential tricuspid regurgitation No pericardial effusion Previewed by: Dr. Yury Whelan DO (Electronically Signed) Final Date: 25 Jun 2024 17:05
--- NOTE | 2024-06-25 17:22 | P.PN ---
Progress Note - Text Progress Note Date: 06/25/24 Chief Complaint: Short of breath pleasant 79 year-old patient, follows with Dr. Thayer. Medical history includes atrial fibrillation, hard of hearing, hypertension osteoarthritis kidney disease, tinnitus diverticulosis kidney stones tachybradycardia syndrome stage IIIa kidney disease follows with Dr. Kimbrough macular degeneration. May 21, 2024 underwent arctic valve replacement with a bioprosthesis, mitral valve repair with annuloplasty, exclusion of left atrial appendage using a clip,. Patient had a slow recovery. Was discharged from here to rehab at [facility]. Also was in atrial fibrillation. Patient now presents with worsening short of breath. Decreased appetite. Edema lower extremity. Orthopnea. June 23: Admitted with CHF exacerbation. On IV Lasix 40 mg every 8. Significant fluid output. Breathing better. Erma as above. Edema present. Pulmonary is planning for thoracentesis tomorrow. Eating better June 1: Breathing much better. Did walk in the hallway. Edema is going down. At 1.3 L of thoracentesis done. Eating better. Spoke to the patient daughter. Per cardiology is to continue with IV Lasix June 2: Tired. Breathing slowly improving. Did again walk in the hallway. Edema still present. Wearing stockings. Discussed with cardiology. Continue IV Lasix. Some bump in creatinine. Active Medications Acetaminophen (Acetaminophen Tab 325 Mg Tab) 650 mg PO Q6HR PRN PRN Reason: Mild Pain or Fever > 100.5 Last Admin: 06/24/24 06:55 Dose: 650 mg Amiodarone HCl (Amiodarone 200 Mg Tab) 200 mg PO DAILY FORMERLY [facility], 1928–1983 Last Admin: 06/25/24 07:39 Dose: Not Given Apixaban (Apixaban 5 Mg Tab) 5 mg PO BID FORMERLY [facility], 1928–1983; Protocol Last Admin: 06/25/24 09:21 Dose: 5 mg Aspirin (Aspirin 81 Mg) 81 mg PO DAILY FOR[facility]LY [facility], 1928–1983 Last Admin: 06/25/24 09:21 Dose: 81 mg Furosemide (Furosemide 10 Mg/Ml 4 Ml Vial) 40 mg IV Q8H FOR[facility], 1928–1983 Last Admin: 06/25/24 15:58 Dose: 40 mg Metoprolol Tartrate (Metoprolol Tartrate 12.5 Mg Tab) 12.5 mg PO BID FOR[facility]LY [facility], 1928–1983 Midodrine (Midodrine 5 Mg Tab) 5 mg PO AC-BID FOR[facility]LY [facility], 1928[facility]1983 Last Admin: 06/25/24 09:21 Dose: 5 mg Naloxone HCl (Naloxone 0.4 Mg/Ml 1 Ml Vial) 0.2 mg IV Q2M PRN PRN Reason: Opioid Reversal Naloxone HCl (Naloxone 0.4 Mg/Ml 1 Ml Vial) 0.2 mg IV Q2M PRN PRN Reason: Opioid Reversal Pramipexole Dihydrochloride (Pramipexole 0.5 Mg Tab) 0.5 mg PO HS FOR[facility], 1928[facility]1983 Last Admin: 06/24/24 21:14 Dose: 0.5 mg Social history: Lives alone. Denies any alcohol or smoking history. Physical examination: VITAL SIGNS: 97.8, 71, 18, 100/70, 97% room air GENERAL:, Sitting up, much less short of breath EYES: Pupils equal. Conjunctiva clifford l. HEENT: External appearance of nose and ears normal, oral cavity grossly normal. Decreased hearing NECK: JVD raised; masses not palpable. HEART: Heart sounds irregular; edema. Sent LUNGS: Respiratory rate, normal, improved air entry ABDOMEN: Soft, nontender, liver spleen not palpable, no masses palpable. Daily PSYCH: Alert and oriented x3; mood and affect, tired. MUSCULOSKELETAL:No Clubbing/cyanosis;muscles-grossly intact. OA Neurological: Cranial nerves grossly intact. Espinoza is grossly intact. Patient did ambulate in the hallway INVESTIGATIONS, reviewed in the clinical context: June 25: Potassium 3.8 BUN 44 creatinine 1.33 June 24: Potassium 3.6 BUN 43 creatinine 1.11 June 23: Potassium 3.5 BUN 38.4 creatinine 1.2 white count 4.5 hemoglobin 11.2 June 22, 2024: White count 5.3 hemoglobin 12.8 platelets 169 sodium 139 potassium 4.2 BUN 44 creatinine 0.95 proBNP 4110 EKG tracing personally reviewed by me-atrial pacemaker Chest x-ray film personally reviewed by me-large left pleural effusion Previous April 27, 2024: Hemoglobin 14.5 platelets 210 2D echocardiogram April EF 40 to 45%Normally functioning bioprosthetic aortic valve. Without stenosis. Moderate TR. Cardiac catheterization April 2022 mild nonobstructive CAD Assessment plan: - Large left pleural effusion, likely CHF: May 10 patient did have thoracentesis June 24 1.3 L thoracentesis done by Dr. Marinelli -aorctic valve replacement with a bioprosthesis, mitral valve repair with annuloplasty, exclusion of left atrial appendage using a clip, on May 03, [address] Hammond Prior moderate mitral regurgitation, severe tricuspid regurgitation, severe aortic regurgitation - Acute on chronic congestive heart failure exacerbation from systolic dysfunction EF 40 to 45% secondary to valvular disease: Slow improvement IV Lasix 40 mg every 8. Fluid restriction 2000 cc a day. Strict I's and O's -Prior atrial fibrillation., Lopressor 25 mg twice daily. Cordarone -Acute postprocedure blood loss anemia expected from surgery Follow H&H -Hard of hearing -Severe secondary pulmonary hypertension -Primary osteoarthritis Tylenol as needed -Colonic diverticulosis, asymptomatic -Chronic kidney disease stage IIIa, baseline creatinine from 1 2-1.3, secondary nephrosclerosis Follows with Dr. Kimbrough outpatient -Pacemaker 2016, for sick sinus syndrome -Full code Improvement. Continue IV Lasix. Past Medical History Past Medical History: Atrial Fibrillation, Heart Failure, CVA/TIA, Eye Disorder, Hearing Disorder / Deafness, Hyperlipidemia, Hypertension, Osteoarthritis (OA), Renal Disease, Skin Disorder Additional Past Medical History / Comment(s): SOB in the evening and through the night. Tinnitus, bilateral hearing aid use. Diverticular disease, hemorrhoids. Hx kidney stones. Anemia. Hx CVA-no residual, leaky aortic(severe) and mitral valve(mild), 3rd heart valve leaking, left bundle branch block, tachy-chase synd rpua, vertigo. Stage 3A kidney disease. Macular degeneration left eye. Small hiatal hernia. History of Any Multi-Drug Resistant Organisms: None Reported Past Surgical History: Adenoidectomy, Appendectomy, Section, Coronary Bypass/CABG, Pacemaker, Tonsillectomy Additional Past Surgical History / Comment(s): SINUS SURGERY, section X3, CHRISTY, colonoscopy. 05/03/24 valve repair and replacement, Past Anesthesia/Blood Transfusion Reactions: No Reported Reaction Additional Past Anesthesia/Blood Transfusion Reaction / Comment(s): Hx blood transfusion with no issues 50 yrs ago. Type of Cardiac Device: Permanent Pacemaker Device Placement Date:: 01/2017 Left chest Past Psychological History: Anxiety, Depression Smoking Status: Never smoker
[2024-06-25] MEDS: SPIRONOLACTONE 25 MG TAB PO SCH (18:32)
[2024-06-25] MEDS: METOPROLOL TARTRATE 12.5 MG TAB PO SCH (21:59)
[2024-06-26 04:58] LABS: African American GFR (CKD) 51 (>60 ml/min/1.73 sqM); Anion Gap 5 mmol/L; Blood Urea Nitrogen 45 mg/dL (7-17); Calcium 8.6 mg/dL (8.4-10.2); Carbon Dioxide 34 mmol/L (22-30); Chloride 97 mmol/L (98-107); Glucose 79 mg/dL (74-99); Non-African American GFR(CKD) 44 (>60 ml/min/1.73 sqM); Potassium 3.4 mmol/L (3.5-5.1); Sodium 136 mmol/L (137-145)
[2024-06-26 07:31] VITALS: BP 122/86; PULSE 77; RESP 18; TEMP 97.4
[2024-06-26] MEDS: FUROSEMIDE 40 MG TAB PO SCH (08:38)
[2024-06-26] MEDS ORDERED: FUROSEMIDE 20 MG TAB PO SCH (09:00)
--- NOTE | 2024-06-26 10:18 | P.PN ---
Subjective Progress Note Date: 06/26/24 Reason for Consult (text): CHF History of present illness: This is a 79-year-old female patient of Dr. Perez with past medical history of paroxysmal atrial fibrillation, permanent pacemaker, valvular heart disease status post aortic valve replacement and mitral valve repair, history of heart failure with reduced EF and cardiomyopathy, dilated ascending aorta. We have been asked to evaluate the patient for CHF. Patient states that she has had increasing lower extremity edema for the past few days to the point that she could not walk because of fluid and also her legs were aching. She spoke with Dr. Perez on the phone 2 days ago and her Lasix was doubled. She states she has had lower extremity edema since she had her open heart surgery. She states her breathing has been significantly bad since Easter and feels like she is going backwards. She does state that she feels some improvement since open-heart surgery. He had a recent thoracentesis done on 06/[address] Flores and states that she has had some improvement of her breathing since then. Patient has been started on IV Lasix received 40 mg x 2 and is now on 40 mg every 8 hours. She feels that she is urinating quite a bit and the edema to her legs has improved a little bit. She still has significant edema up to her hip. Discussed use of Farxiga. She denies frequent urinary tract infections and denies dysuria at this time. She is concerned that she does not have insurance coverage for prescriptions. She does state that she has hematuria which we will obtain UA to evaluate. Blood pressure 104/71, heart rate 71, pulse ox 97% on room air. Patient has has had ultrasound of the chest done in April for thoracentesis. Eliquis is on hold. -EKG: Atrial paced rhythm. -Chest x-ray: Right upper lobe infiltrate. Increased opacity left lower lobe could reflect underlying atelectasis and/or infiltrates. Small effusions noted. -Chest ultrasound reveals a left pleural effusion pocket 10.2 cm. -Laboratory studies: WBC 4.5, hemoglobin 9.2, sodium 141, potassium 3.5, BUN 38 creatinine 1.2, AST 37, alkaline phosphatase 158. -Home cardiac medications: Amiodarone 200 mg daily, Eliquis 5 mg twice daily, aspirin 81 mg daily, Lasix 20 mg twice daily, hydralazine 25 mg 3 times daily, metoprolol tartrate 25 mg twice daily. -Echocardiogram performed on 05/10/2024 revealed EF 40 to 45%, mild concentric LVH, atypical septal motion probably related to previous bypass surgery and conduction abnormality. Atria enlarged. Bioprosthetic aortic valve stable. No significant gradient. Mild regurgitation. Mitral annular calcification with mitral valve repair evident. No significant gradient. Mild mitral regurgitation. Mild tricuspid regurgitation. No significant pulmonary hypertension. No pericardial effusion. 06/24 Patient seen and examined. Blood pressure 104/74, heart rate 71, pulse ox 95% on room air. Patient underwent thoracentesis with removal of 1.[address] Marinelli and has been cleared to resume Eliquis this evening. Chest x-ray performed this morning reveals significantly improved left-sided pleural effusion with areas of discoid atelectasis. No evidence of pneumothorax. Patient has been maintained on IV Lasix 40 mg every 8 hours. She states that she has been urinating a lot. She still has lower extremity edema which is slightly improved. Repeat blood work reveals sodium 136, potassium 3.6, BUN 43 creatinine 1.11 Regarding Farxiga/Jardiance, patient has a $600+ [id number] cost and Farxiga will be canceled for now. This may be an option outpatient 06/25 Patient seen and examined. Patient has been maintained on IV Lasix. Hyd ralazine and Lopressor were hold last night and this morning and subsequently hydralazine has been discontinued by nephrology and midodrine was started. Blood pressure is 100/70, heart rate in the 70s, pulse ox 97% on room air. Patient states that she has been feeling better she has walked around the halls several times. She states she does feel a little lightheaded. She has been urinating well. 06/26 Patient seen and examined. Patient has been maintained on IV Lasix 40 mg every 8 hours. Blood pressure 122/86, heart rate 70s, pulse ox 97% on room air. Repeat blood work reveals potassium 3.4, BUN 45 and creatinine 1.18. Echocardiogram reveals EF 35 to 40%. 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 Status post mitral valve repair with trace to mild mitral regurgitation. Bioprosthetic aortic valve with mean gradient 14 mmHg with some increased gradients with likely degree of low-flow low gradient aortic stenosis. Dimensionless index 0.29. Consider CHRISTY if clinically indicated. Severe torrential tricuspid regurgitation. No pericardial effusion. Physical examination: Gen: This is 79-year-old female in no acute distress VS: reviewed HEENT: Head is atraumatic, normocephalic. Pupils equal, round. Sclerae is anicteric. NECK: Supple. No JVD. LUNGS: Clear to auscultation. No wheezes or rhonchi. No intercostal retractions. HEART: Regular rate and rhythm. No murmur. ABDOMEN: Soft No tenderness. EXTREMITIES: 2+ lower extremity edema. No calf tenderness. NEUROLOGICAL: Patient is awake, alert and oriented x3. Assessment: Acute on chronic heart failure with reduced ejection fraction, EF 40% Recurrent left-sided pleural effusion s/p thoracentesis on 05/10 and 06/10 Patient is status post thoracentesis during this admission on 06/24 Severe aortic valve regurgitation, status post aortic valve replacement 05/03 Moderate mitral valve regurgitation, status post mitral valve repair 05/03 Hypertension Chronic kidney disease stage III Paroxysmal atrial fibrillation Sick sinus syndrome status post permanent dual-chamber pacemaker Embolic stroke with full recovery in 2017 Mild elevation of liver function test Plan: Continue amiodarone 200 mg daily, Eliquis 5 mg twice daily, aspirin 81 mg daily Continue Lopressor to 12.5 mg twice daily Transition IV Lasix to oral 40 mg twice daily Hydralazine has been discontinued and patient started on midodrine by nephrology for hypotension Patient is cleared for discharge from cardiology perspective. Patient will follow-up in the office with Dr. Perez in 1 week. Nurse practitioner note has been reviewed, I agree with documented findings and plan of care. Patient was seen and examined. Objective - Vital Signs Vital signs: Vital Signs Temp 97.4 F L 06/26/24 06:50 Pulse 77 06/26/24 06:50 Resp 18 06/26/24 06:50 BP 122/86 06/26/24 06:50 Pulse Ox 97 06/26/24 06:50 FiO2 Intake & Output 06/25/24 06/26/24 06/26/24 18:59 06:59 18:59 Intake Total 200 1320 Output Total 1700 1400 Balance -1500 -80 Weight 47.5 kg Intake: Oral 200 1320 Output: Urine 1700 1400 Other: Voiding Method Toilet - Labs CBC & Chem 7: 06/23/24 03:23 06/26/24 04:04 Labs: Abnormal Lab Results - Last 24 Hours (Table) 06/26/24 Range/Units 04:04 Sodium 136 L (137-145) mmol/L Potassium 3.4 L (3.5-5.1) mmol/L Chloride 97 L (98-107) mmol/L Carbon Dioxide 34 H (22-30) mmol/L BUN 45 H (7-17) mg/dL Creatinine 1.18 H (0.52-1.04) mg/dL
--- NOTE | 2024-06-26 13:20 | P.PN ---
Subjective Progress Note Date: 06/26/24 Patient is a 79-year-old female with past medical history significant for atrial fibrillation, embolic stroke, permanent pacemaker, hypertension, valvular heart disease, and recurrent left-sided pleural effusion. On May 03, patient underwent aortic valve replacement, mitral valve repair, and exclusion of left atrial appendage with Dr. Hammond. Postoperatively, developed a left-sided pleural effusion, which was drained by Dr. Peter on 05/10/2024. A total of 700 mL was removed from the pleural space at this time. Subsequently, underwent repeat thoracentesis on the left with Dr. Barrientos on 06/10/2024, a total of 1.3 L was removed. She does take Lasix 20 mg daily on an outpatient basis, this was recently increased to 20 mg twice daily by her wool fleece grader Dr. Sweeney approximately 3 to [address] Barrientos in the pulmonary office yesterday in follow-up. She has been more short of breath as of late. Chest x- ray showing postsurgical changes, permanent pacemaker, small right pleural effusion, with recurrent moderate to large size pleural fluid collection on the left. Also, endorses increased lower extremity edema and leg weakness. She has gained approximately 5 pounds. She has been sleeping on her couch with the head elevated due to shortness of breath. Denies infectious-like symptoms. Denies fevers or chills. Denies chest pain. [facility] and possible left-sided thoracentesis. Additional workup including a CBC with a WBC count 5.4, hemoglobin 12.8, platelets 169. PT 5.9, INR 1.5, APTT 29.9. CMP: Sodium 139, potassium 4.2, chloride 102, serum bicarb 24, BUN 44, creatinine 0.95, glucose 82. LFTs unremarkable. EKG: Atrially paced rhythm, rate 70 bpm. NT proBNP 4110. Chest x-ray done in the ED patient currently being evaluated on the general medical floor. Endorses above- mentioned symptoms. She is on room air. Endorses shortness of breath, particularly with exertion. Does have significant lower extremity pitting edema. Receiving Lasix 40 mg 3 times daily. Also, anticoagulated on Eliquis. Her last dose of Eliquis was last night. Current vital signs: Temperature 97.4 F, heart rate 69 bpm, blood pressure 137/67 mmHg, nontachypneic, SpO2 recorded at 96% on room air. The patient is seen today June 24, 2024 in follow-up on the regular medical floor. She is currently sitting up in bed. Awake and alert in no acute distress. Maintaining O2 saturations in the 90s on room air. She remains on Lasix 40 mg IV every 8 hours. Sodium 136. Potassium 3.6. Bicarb 27. BUN 43. Creatinine 1.11. Glucose 129. Her Eliquis was placed on hold. A left-sided thoracentesis was performed today with 1.3 L of cloudy yellow fluid returned. Not sent for analysis. The patient is seen today June 25, 2024 in follow-up on the regular medical floor. She has been up ambulating in her room. Denies any worsening shortness of breath, cough or congestion. Maintaining good O2 saturations in the mid 90s on room air. She has been afebrile. Hemodynamically stable. Sodium 136. Potassium 3.8. Bicarb 30. BUN 49. Creatinine 1.33. Glucose 82. She remains on Lasix 40 mg IV every 8 hours. Anticoagulated with Eliquis. The patient is seen today June 26, 2024 in follow-up on the regular medical floor. She is up in a chair at the bedside. Awake and alert in no acute distress. Maintaining O2 saturations in the 90s on room air. Sodium 136. Potassium 3.4. Bicarb 34. BUN 45. Creatinine 1.18. Glucose 79. She remains on oral diuretics. Anticoagulated with Eliquis. Objective - Vital Signs Vital signs: Vital Signs Temp 97.4 F L 06/26/24 06:50 Pulse 77 06/26/24 06:50 Resp 18 06/26/24 06:50 BP 122/86 06/26/24 06:50 Pulse Ox 97 06/26/24 08:36 FiO2 21 06/26/24 08:36 Intake & Output 06/25/24 06/26/24 06/26/24 18:59 06:59 18:59 Intake Total 200 1320 Output Total 1700 1400 Balance -1500 -80 Weight 47.5 kg Intake: Oral 200 1320 Output: Urine 1700 1400 Other: Voiding Method Toilet - Exam GENERAL EXAM: Alert, 79-year-old female, on room air oxygen, up ambulating in her room, comfortable in no apparent distress. HEAD: Normocephalic. EYES: Normal reaction of pupils, equal size. NOSE: Clear with pink turbinates. THROAT: No erythema or exudates. NECK: No masses, no JVD. CHEST: No chest wall deformity. LUNGS: Equal air entry with crackles in the left lung base. CVS: S1 and S2 normal with no audible murmur, regular rhythm. ABDOMEN: No hepatosplenomegaly, normal bowel sounds, no guarding or rigidity. SPINE: No scoliosis or deformity SKIN: No rashes CENTRAL NERVOUS SYSTEM: No focal deficits, tone is normal in all 4 extremities. EXTREMITIES: There is no peripheral edema. No clubbing, no cyanosis. Peripheral pulses are intact. - Labs CBC & Chem 7: 06/23/24 03:23 06/26/24 04:04 Labs: Abnormal Lab Results - Last 24 Hours (Table) 06/26/24 Range/Units 04:04 Sodium 136 L (137-145) mmol/L Potassium 3.4 L (3.5-5.1) mmol/L Chloride 97 L (98-107) mmol/L Carbon Dioxide 34 H (22-30) mmol/L BUN 45 H (7-17) mg/dL Creatinine 1.18 H (0.52-1.04) mg/dL Assessment and Plan Assessment: Recurrent moderate to large size left pleural effusion; previously underwent lef t-sided thoracentesis on 05/10/2024 and again on 06/10/2024. A third left-sided thoracentesis performed this admission June 24, 2024 with 1.3 L of fluid returned. Not sent for analysis. Remains on diuretics Acute dyspnea, secondary to above, chest x-ray showing bilateral pleural effusions, left greater than right, cardiomegaly, postsurgical changes, and permanent pacemaker Acute on chronic kidney disease secondary to hypotension and diuretics Hypotension, hydralazine on hold. Midodrine added Chronic kidney disease secondary to nephrosclerosis History of valvular heart disease with previous aortic valve replacement and mitral valve repair, with exclusion left atrial appendage performed on 05/03/2024 History of heart failure with reduced ejection fraction, most recent echocardiogram performed 05/10/2024 with an estimated ejection fraction of 45 to 50%, bioprosthetic aortic valve was stable without significant gradient regurgitation, mitral valve repair, was also without significant gradient regurgitation. History of paroxysmal atrial fibrillation, status post cardioversion, ch ronically anticoagulated on Eliquis History of dual-chamber permanent pacemaker History of embolic stroke History of chronic kidney disease stage III, stable Hypertension Plan: The patient was seen and evaluated Medications and labs reviewed Stable and on room air Blood pressure improved Continued on midodrine Continued on oral diuretics Stable for discharge from the pulmonary standpoint Follow-up in our office in 1 week I have personally seen and examined the patient, performed the documentation and the assessment and plan as written. Number of minutes spent on the visit: 10 Dictation was produced using [employer] dictation software. Please excuse any grammatical, word or spelling errors.
--- NOTE | 2024-06-26 19:50 | P.DS ---
Providers Date of admission: 06/22/24 15:20 Expected date of discharge: 06/26/24 Attending physician: Michael Holland Consults: 06/22/24 15:20 Consult Physician Routine Consulting Provider: Bautista Hammond Consult Reason/Comments: CHF, PLEURAL EFFUSION, RECENT AORTIC VALVE RPMT Do you want consulting provider notified?: Yes Consult Physician Routine Consulting Provider: [facility] Consult Reason/Comments: chf Do you want consulting provider notified?: Yes Consult Physician Routine Consulting Provider: Saida Marinelli Consult Reason/Comments: pleural effusion Do you want consulting provider notified?: Yes 06/23/24 07:29 Consult Physician Routine Consulting Provider: Savita Kimbrough Consult Reason/Comments: CKD, known to you Do you want consulting provider notified?: Yes [facility] [place] [facility] Course: Chief Complaint: Short of breath pleasant 79 year-old patient, follows with Dr. Thayer. Medical history includes atrial fibrillation, hard of hearing, hypertension osteoarthritis kidney disease, tinnitus diverticulosis kidney stones tachybradycardia syndrome stage IIIa kidney disease follows with Dr. Kimbrough macular degeneration. May 21, 2024 underwent arctic valve replacement with a bioprosthesis, mitral valve repair with annuloplasty, exclusion of left atrial appendage using a clip,. Patient had a slow recovery. Was discharged from here to rehab at [facility]. Also was in atrial fibrillation. Patient now presents with worsening short of breath. Decreased appetite. Edema lower extremity. Orthopnea. June 23: Admitted with CHF exacerbation. On IV Lasix 40 mg every 8. Significant fluid output. Breathing better. Erma as above. Edema present. Pulmonary is planning for thoracentesis tomorrow. Eating better June 1: Breathing much better. Did walk in the hallway. Edema is going down. At 1.3 L of thoracentesis done. Eating better. Spoke to the patient daughter. Per cardiology is to continue with IV Lasix June 2: Tired. Breathing slowly improving. Did again walk in the hallway. Edema still present. Wearing stockings. Discussed with cardiology. Continue IV Lasix. Some bump in creatinine. June 3: Doing better. Echo results informed to the patient. Edema still present. Does get tired. She will follow-up with her cardiology and cardiothoracic surgeon. Fluid restriction. Social history: Lives alone. Denies any alcohol or smoking history. Physical examination: VITAL SIGNS: 97.4, 77, 18, [birth year]1985, 97% room air GENERAL:, Up in a recliner EYES: Pupils equal. Conjunctiva clifford l. HEENT: External appearance of nose and ears normal, oral cavity grossly normal. Decreased hearing NECK: JVD raised; masses not palpable. HEART: Heart sounds irregular; edema. Present LUNGS: Respiratory rate, normal, improved air entry ABDOMEN: Soft, nontender, liver spleen not palpable, no masses palpable. Daily PSYCH: Alert and oriented x3; mood and affect, tired. MUSCULOSKELETAL:No Clubbing/cyanosis;muscles-grossly intact. OA Neurological: Cranial nerves grossly intact. Espinoza is grossly intact. Patient did ambulate in the hallway INVESTIGATIONS, reviewed in the clinical context: 2D echocardiogram: EF 35 to 40%. No atrial thrombus or mass. Normal functioning bioprosthetic aortic valve. Severe tricuspid regurgitation. June 26: BUN 45 creatinine 1.18 June 23: Potassium 3.5 BUN 38.4 creatinine 1.2 white count 4.5 hemoglobin 11.2 June 22, 2024: White count 5.3 hemoglobin 12.8 platelets 169 sodium 139 potassium 4.2 BUN 44 creatinine 0.95 proBNP 4110 EKG tracing personally reviewed by me-atrial pacemaker Chest x-ray film personally reviewed by me-large left pleural effusion Previous April 27, 2024: Hemoglobin 14.5 platelets 210 2D echocardiogram April EF 40 to 45%Normally functioning bioprosthetic aortic valve. Without stenosis. Moderate TR. Cardiac catheterization April 2022 mild nonobstructive CAD Assessment plan: - Large left pleural effusion, likely CHF: May 10 patient did have thoracentesis June 24 1.3 L thoracentesis done by Dr. Marinelli -aorctic valve replacement with a bioprosthesis, mitral valve repair with annuloplasty, exclusion of left atrial appendage using a clip, on May 03, [address] Hammond Prior moderate mitral regurgitation, severe tricuspid regurgitation, severe aortic regurgitation - Acute on chronic congestive heart failure exacerbation from systolic dysfunction EF 40 to 45% secondary to valvular disease: Better IV Lasix 40 mg every 8. Fluid restriction 2000 cc a day. Strict I's and O's Discharged on oral Lasix and Aldactone -Prior atrial fibrillation., Lopressor 25 mg twice daily. Cordarone -Acute postprocedure blood loss anemia expected from surgery Follow H&H -Hard of hearing -Severe secondary pulmonary hypertension -Primary osteoarthritis Tylenol as needed -Colonic diverticulosis, asymptomatic -Chronic kidney disease stage IIIa, baseline creatinine from 1 2-1.3, secondary nephrosclerosis Follows with Dr. Kimbrough outpatient -Pacemaker 2016, for sick sinus syndrome -Full code Disposition: Home Past Medical History Past Medical History: Atrial Fibrillation, Heart Failure, CVA/TIA, Eye Disorder, Hearing Disorder / Deafness, Hyperlipidemia, Hypertension, Osteoarthritis (OA), Renal Disease, Skin Disorder Additional Past Medical History / Comment(s): SOB in the evening and through the night. Tinnitus, bilateral hearing aid use. Diverticular disease, hemorrhoids. Hx kidney stones. Anemia. 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 Stage 3A kidney disease. Macular degeneration left eye. Small hiatal hernia. History of Any Multi-Drug Resistant Organisms: None Reported Past Surgical History: Adenoidectomy, Appendectomy, Section, Coronary Bypass/CABG, Pacemaker, Tonsillectomy Additional Past Surgical History / Comment(s): SINUS SURGERY, section X3, CHRISTY, colonoscopy. 05/03/24 valve repair and replacement, Past Anesthesia/Blood Transfusion Reactions: No Reported Reaction Additional Past Anesthesia/Blood Transfusion Reaction / Comment(s): Hx blood transfusion with no issues 50 yrs ago. Type of Cardiac Device: Permanent Pacemaker Device Placement Date:: 01/2017 Left chest Past Psychological History: Anxiety, Depression Smoking Status: Never smoker Plan - Discharge Summary Discharge Rx Participant: No New Discharge Prescriptions: New Potassium Chloride ER [K-Dur 20] 20 meq PO DAILY #60 tab Metoprolol Tartrate [Lopressor] 12.5 mg PO BID #60 tab Midodrine [ProAmatine] 5 mg PO AC-BID #60 tab Furosemide [Lasix] 40 mg PO BID #60 tablet Spironolactone [Aldactone] 25 mg PO DAILY #60 tab Continue Vit C/E/Zn/Coppr/Lutein/Zeaxan [Preservision Areds 2 Softgel] 1 cap PO BID L.acidoph,Paracasei, B.lactis [Probiotic] 1 cap PO BID Pramipexole [Mirapex] 0.5 mg PO HS tab Acetaminophen Tab [Tylenol] 650 mg PO Q4HR PRN tab PRN Reason: Fever And/ Or Mild Pain (1-3) Vitamin C 650mg 1 tab PO DAILY Illumineyes 1 tab PO DAILY Apixaban [Eliquis] 5 mg PO BID Aspirin 81 mg PO DAILY tab Magnesium Oxide [Mag-Ox] 400 mg PO DAILY PRN PRN Reason: DEFICIENCY Amiodarone [Cordarone] 200 mg PO DAILY Discontinued Metoprolol Tartrate [Lopressor] 25 mg PO BID tab Furosemide [Lasix] 20 mg PO BID hydrALAZINE HCL [Apresoline] 25 mg PO TID Discharge Medication List L.acidoph,Paracasei, B.lactis [Probiotic] 1 cap PO BID 04/25/22 [History] Vit C/E/Zn/Coppr/Lutein/Zeaxan [Preservision Areds 2 Softgel] 1 cap PO BID 04/25/22 [History] Illumineyes 1 tab PO DAILY 12/30/23 [History] Vitamin C 650mg 1 tab PO DAILY 12/30/23 [History] Apixaban [Eliquis] 5 mg PO BID 02/27/24 [History] Acetaminophen Tab [Tylenol] 650 mg PO Q4HR PRN tab 05/17/24 [Rx] Aspirin 81 mg PO DAILY tab 05/17/24 [Rx] Pramipexole [Mirapex] 0.5 mg PO HS tab 05/17/24 [Rx] Amiodarone [Cordarone] 200 mg PO DAILY 06/22/24 [History] Magnesium Oxide [Mag-Ox] 400 mg PO DAILY PRN 06/22/24 [History] Furosemide [Lasix] 40 mg PO BID #60 tablet 06/24/24 [Rx] Potassium Chloride ER [K-Dur 20] 20 meq PO DAILY #60 tab 06/24/24 [Rx] Metoprolol Tartrate [Lopressor] 12.5 mg PO BID #60 tab 06/26/24 [Rx] Midodrine [ProAmatine] 5 mg PO AC-BID #60 tab 06/26/24 [Rx] Spironolactone [Aldactone] 25 mg PO DAILY #60 tab 06/26/24 [Rx] Follow up Appointment(s)/Referral(s): Saida Marinelli MD [STAFF PHYSICIAN] - 1 Week (Office is closed at time of discharge. Please call for follow-up appointment.) [facility], [NON-STAFF] - As Needed Aging,[place] [NON-STAFF] - As Needed (Please call with at least 24h notice to set up transportation.) Gino Thayer DO [Primary Care Provider] - 1-2 days (office will call with appointment time) Michael Perez MD [STAFF PHYSICIAN] - 06/29/24 8:45 am Activity/Diet/Wound Care/Special Instructions: fluid restrict 2000 cc/day Discharge Disposition: HOME SELF-CARE
== END 2024-06-26 14:47 | disposition home health service (06) | DRG 291 ==
LOC: EC 11:13 → 4SSUR 15:20
PROVIDERS: ADMIT Hospitalist; ATTEND Hospitalist
PROC: 0W9B3ZZ Drainage of Left Pleural Cavity, Percutaneous Approach (ICD-10-PCS; principal; 2024-06-25)
DX: I13.0 Hypertensive heart and chronic kidney disease with heart failure and stage 1 through stage 4 chronic kidney disease, or unspecified chronic kidney disease (principal); I50.23 Acute on chronic systolic (congestive) heart failure; J91.8 Pleural effusion in other conditions classified elsewhere; I27.20 Pulmonary hypertension, unspecified; N18.31 Chronic kidney disease, stage 3a; Z95.3 Presence of xenogenic heart valve; F32.A Depression, unspecified; D50.9 Iron deficiency anemia, unspecified; I77.810 Thoracic aortic ectasia; I42.9 Cardiomyopathy, unspecified; I49.5 Sick sinus syndrome; I48.0 Paroxysmal atrial fibrillation; I95.9 Hypotension, unspecified; Z79.01 Long term (current) use of anticoagulants; Z95.1 Presence of aortocoronary bypass graft; F41.9 Anxiety disorder, unspecified; E78.5 Hyperlipidemia, unspecified; H35.30 Unspecified macular degeneration; H93.19 Tinnitus, unspecified ear; K44.9 Diaphragmatic hernia without obstruction or gangrene; I36.1 Nonrheumatic tricuspid (valve) insufficiency; R31.9 Hematuria, unspecified; H91.90 Unspecified hearing loss, unspecified ear; K57.30 Diverticulosis of large intestine without perforation or abscess without bleeding; Z59.71 Insufficient health insurance coverage; Z79.82 Long term (current) use of aspirin; Z79.899 Other long term (current) drug therapy; Z86.73 Personal history of transient ischemic attack (TIA), and cerebral infarction without residual deficits; Z95.0 Presence of cardiac pacemaker; Z88.8 Allergy status to other drugs, medicaments and biological substances
CPT/HCPCS: 36415; 71045; 71046; 76604; 80048; 80053; 81001; 83735; 83880; 85025; 85610; 85730; 93005; 93306; 94760; 96374; 96376; 99285

== ENCOUNTER 2024-07-09 15:37 | Emergency (ER) | payer BC, MEDICARE, OTHER ==
[2024-07-09 15:52] VITALS: TEMP 97.8
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
[2024-07-09 19:01] VITALS: BP 101/68; PULSE 68; RESP 16
== END 2024-07-09 19:01 | disposition home or self-care (01) ==
LOC: EC 15:37
DX: S13.4XXA Sprain of ligaments of cervical spine, initial encounter (principal); J90 Pleural effusion, not elsewhere classified; Z91.018 Allergy to other foods; Z77.120 Contact with and (suspected) exposure to mold (toxic); Z88.8 Allergy status to other drugs, medicaments and biological substances; Z79.01 Long term (current) use of anticoagulants; V43.52XA Car driver injured in collision with other type car in traffic accident, initial encounter; Y92.410 Unspecified street and highway as the place of occurrence of the external cause
CPT/HCPCS: 70450; 71111; 72125; 99285

== ENCOUNTER 2024-08-15 19:13 | Emergency (ER) | payer MEDICARE, BC ==
--- NOTE | 2024-08-15 19:58 | ED ---
General Adult HPI - General Source: patient, RN notes reviewed Mode of arrival: ambulatory Limitations: no limitations <HareshYudi - Last Filed: 08/15/24 19:57> - General Source: patient, RN notes reviewed, old records reviewed Mode of arrival: ambulatory Limitations: no limitations - History of Present Illness -: days(s) Location: head, face Radiation: non-radiation Severity scale (1-10): 4 Quality: aching Consistency: constant Improves with: none Associated Symptoms: denies other symptoms Treatments Prior to Arrival: none <Michael Perez - Last Filed: 08/22/24 21:09> - General Chief complaint: Nausea/Vomiting/Diarrhea Stated complaint: abn labs Time Seen by Provider: 08/15/24 19:57 - History of Present Illness Initial comments: Quick [id number] female presenting for "upset stomach since last night". States she is nauseous but denies any vomiting, fevers, diarrhea, or constipation. She was sent from urgent care because they told her she looked jaundiced. History of appendectomy otherwise no abdominal surgeries. (Yudi Dixon) This is a 79-year-old female to the ER for evaluation of nausea no vomiting no fevers upset stomach with last night, sent from urgent care for evaluation of possible gallbladder illness. (Michael Perez) - Related Data Home Medications Medication Instructions Recorded Confirmed L.acidoph,Paracasei, B.lactis 1 cap PO BID 04/25/22 07/28/24 [Probiotic] Vit C/E/Zn/Coppr/Lutein/Zeaxan 1 cap PO BID 04/25/22 07/28/24 [Preservision Areds 2 Softgel] Illumineyes 1 tab PO DAILY 12/30/23 07/28/24 Vitamin C 650mg 1 tab PO DAILY 12/30/23 07/28/24 Apixaban [Eliquis] 5 mg PO BID 02/27/24 07/28/24 Amiodarone [Cordarone] 200 mg PO DAILY 06/22/24 07/28/24 Magnesium Oxide [Mag-Ox] 400 mg PO DAILY PRN 06/22/24 07/28/24 Previous Rx's Medication Instructions Recorded Acetaminophen Tab [Tylenol] 650 mg PO Q4HR PRN tab 05/17/24 Aspirin 81 mg PO DAILY tab 05/17/24 Furosemide [Lasix] 40 mg PO BID #60 tablet 06/24/24 Potassium Chloride ER [K-Dur 20] 20 meq PO DAILY #60 tab 06/24/24 Metoprolol Tartrate [Lopressor] 12.5 mg PO BID #60 tab 06/26/24 Midodrine [ProAmatine] 5 mg PO AC-BID #60 tab 06/26/24 Spironolactone [Aldactone] 25 mg PO DAILY #60 tab 06/26/24 Allergies Allergy/AdvReac Type Severity Reaction Status Date / Time strawberry Allergy Itching Verified 08/15/24 19:48 mold AdvReac sinuses Verified 08/15/24 19:48 [id number] Reductase AdvReac muscle Verified 08/15/24 19:48 Inhibitor aches and lethargy wheat AdvReac stomach Verified 08/15/24 19:48 bloats and lack of energy Yeast AdvReac sore Verified 08/15/24 19:48 throat,sinuses fungus AdvReac sinuses Uncoded 08/15/24 19:48 Review of Systems ROS Other: All systems not noted in ROS Statement are negative. <Yudi Hutson - Last Filed: 08/15/24 19:57> ROS Other: All systems not noted in ROS Statement are negative. <Michael Perez - Last Filed: 08/22/24 21:09> ROS Statement: Those systems with pertinent positive or pertinent negative responses have been documented in the HPI. Past Medical History Past Medical History: Atrial Fibrillation, Heart Failure, CVA/TIA, Eye Disorder, Hearing Disorder / Deafness, Hyperlipidemia, Hypertension, Osteoarthritis (OA), Renal Disease, Skin Disorder Additional Past Medical History / Comment(s): Tinnitus, bilateral hearing aid use. Diverticular disease, hemorrhoids. Hx kidney stones. Anemia. 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 Stage 3A kidney disease. Macular degeneration left eye. Small hiatal hernia. History of Any Multi-Drug Resistant Organisms: None Reported Past Surgical History: Adenoidectomy, Appendectomy, Section, Pacemaker, Tonsillectomy Additional Past Surgical History / Comment(s): SINUS SURGERY, section X3, CHRISTY, colonoscopy. 05/03/24 aortic valve replacement with mitral valve repair, pacemaker 2017 Past Anesthesia/Blood Transfusion Reactions: No Reported Reaction Additional Past Anesthesia/Blood Transfusion Reaction / Comment(s): Hx blood transfusion with no issues 50 yrs ago. Type of Cardiac Device: Permanent Pacemaker Device Placement Date:: 01/2017 Left chest Past Psychological History: Anxiety, Depression Smoking Status: Never smoker Past Alcohol Use History: None Reported Past Drug Use History: None Reported - Past Family History Sister(s) Family Medical History: Cancer Brother(s) Family Medical History: Cancer, Coronary Artery Disease (CAD) Father Family Medical History: Cancer Additional Family Medical History / Comment(s): Prostate cancer with mets to bones, colon. Mother Family Medical History: Renal Disease Additional Family Medical History / Comment(s): kidney disease <HareshYudi - Last Filed: 08/15/24 19:57> General Exam Limitations: no limitations <Yudi Hutson - Last Filed: 08/15/24 19:57> General appearance: alert, in no apparent distress Head exam: Present: atraumatic, normocephalic, normal inspection Eye exam: Present: normal appearance, PERRL, EOMI. Absent: scleral icterus, conjunctival injection, periorbital swelling ENT exam: Present: normal exam, mucous membranes moist Neck exam: Present: normal inspection. Absent: tenderness, meningismus, lymphadenopathy Respiratory exam: Present: normal lung sounds bilaterally. Absent: respiratory distress, wheezes, rales, rhonchi, stridor Cardiovascular Exam: Present: regular rate, normal rhythm, normal heart sounds. Absent: systolic murmur, diastolic murmur, rubs, gallop, clicks GI/Abdominal exam: Present: soft, normal bowel sounds. Absent: distended, tenderness, guarding, rebound, rigid Extremities exam: Present: normal inspection, full ROM, normal capillary refill. Absent: tenderness, pedal edema, joint swelling, calf tenderness Back exam: Present: normal inspection Neurological exam: Present: alert, oriented X3, CN II-XII intact Psychiatric exam: Present: normal affect, normal mood Skin exam: Present: warm, dry, intact, normal color. Absent: rash <Michael Perez - Last Filed: 08/22/24 21:09> - General Exam Comments Initial Comments: Visual Physical Exam Vital signs reviewed General: Well-appearing, nontoxic, no acute distress. Head: Normocephalic, atraumatic Eyes: PERRLA, EOMI ENT: Airway patent Chest: Nonlabored breathing Skin: No visual rash, normal skin tone Neuro: Alert and oriented 3 Musculoskeletal: No gross abnormalities (Yudi Hutson) Course <Michael Perez - Last Filed: 08/22/24 21:09> Vital Signs 08/15/24 08/16/24 19:48 00:15 Temperature 98.0 F 97.5 F L Pulse Rate 71 74 Respiratory 16 19 Rate Blood Pressure 126/84 133/92 O2 Sat by Pulse 98 99 Oximetry - Reevaluation(s) Reevaluation #1: Medical records reviewed (Michael Perez) Reevaluation #2: Patient symptoms are improved here in the ER (Michael Perez) Reevaluation #3: Patient informed of results and questions answered (Michael Perez) Reevaluation #4: Was pt. sent in by a medical professional or institution (, PA, DRUG ABUSE TECHNICIAN, urgent care, hospital, or jail...) When possible be specific @ -no Did you speak to anyone other than the patient for history (EMS, parent, family, police, friend...)? What history was obtained from this source @ -no Did you review nursing and triage notes (agree or disagree)? Why? @ -agree Are old charts reviewed (outside hosp., previous admission, EMS record, old EKG, old radiological studies, urgent care reports/EKG's, jail records)? Report findings @ -yes Differential Diagnosis (chest pain, altered mental status, abdominal pain women, abdominal pain men, vaginal bleeding, weakness, fever, dyspnea, syncope, headache, dizziness, GI bleed, back pain, seizure, CVA, palpatations, mental health, musculoskeletal)? @ -prior EKG interpreted by me (3pts min.). @ -yes X-rays interpreted by me (1pt min.). @ -no CT interpreted by me (1pt min.). @ -no U/S interpreted by me (1pt. min.). @ -yes negative for acute disease What testing was considered but not performed or refused? (CT, X-rays, U/S, labs)? Why? @ -none What meds were considered but not given or refused? Why? @ -none Did you discuss the management of the patient with other professionals (professionals i.e. , PA, DRUG ABUSE TECHNICIAN, lab, RT, psych nurse, social science teacher, skein yard drier, teacher, medical information officer, supervisor case loading)? Give summary @ -no Was smoking cessation discussed for >3mins.? @ -no Was critical care preformed (if so, how long)? @ -no Were there social determinants of health that impacted care today? How? (Homelessness, low income, unemployed, alcoholism, drug addiction, [place] sportation, low edu. Level, literacy, decrease access to med. care, alf, rehab)? @ -none Was there de-escalation of care discussed even if they declined (Discuss DNR or withdrawal of care, Hospice)? DNR status @ -no What co-morbidities impacted this encounter? (DM, HTN, Smoking, COPD, CAD, Cancer, CVA, ARF, Chemo, Hep., AIDS, mental health diagnosis, sleep apnea, morbid obesity)? @ -none Was patient admitted / discharged? Hospital course, mention meds given and route, prescriptions, significant lab abnormalities, going to OR and other pertinent info. @ - 79 female throughout ER stay feels improved, patient has normal ultrasound and normal patient can be discharged home Discharge Undiagnosed new problem with uncertain prognosis? @ -no Drug Therapy requiring intensive monitoring for toxicity (Heparin, Nitro, Insulin, Cardizem)? @ -no Were any procedures done? @ -no Diagnosis/symptom? @ -Chest pain abdominal pain Acute, or Chronic, or Acute on Chronic? @ -Acute Uncomplicated (without systemic symptoms) or Complicated (systemic symptoms)? @ -Complicated Side effects of treatment? @ -no Exacerbation, Progression, or Severe Exacerbation? @ -exacerbation Poses a threat to life or bodily function? How? (Chest pain, [place], CO, pneumonia, PE, COPD, DKA, ARF, appy, cholecystitis, CVA, Diverticulitis, Homicidal, Suicidal, threat to staff... and all critical care pts) @ -yes extremes of age (Michael Perez) Reevaluation #5: Differential Weakness: Hypoglycemia, shock, sepsis, hyponatremia, anemia, infection, CO, ETOH, adverse medicine reaction, overdose, stroke, this is not meant to be an all-inclusive list. (Michael Perez) EKG Findings - EKG Comments: EKG Findings:: EKG is paced 70 FL 242 QRS 158 QTc 486 - EKG Results: EKG: interpreted by ERMD <Michael Perez - Last Filed: 08/22/24 21:09> Medical Decision Making <Yudi Hutson - Last Filed: 08/15/24 19:57> - Lab Data Result diagrams: 08/15/24 22:09 08/15/24 22:09 - EKG Data -: EKG Interpreted by Me - Radiology Data Radiology results: report reviewed (Ultrasound gallbladder negative for acute disease), image reviewed <Michael Perez - Last Filed: 08/22/24 21:09> - Medical Decision Making I completed the quick note portion of this chart signed Yudi Hutson PA-C (Yudi Prince) 79 female throughout ER stay feels improved, patient has normal ultrasound and normal patient can be discharged home (Michael Perez) - Lab Data Lab Results 08/15/24 08/15/24 08/15/24 Range/Units 22:09 22:09 22:09 WBC 4.31 L (4.50-10.00) 10*3/uL RBC 4.50 (4.10-5.20) 10*6/uL Hgb 12.0 (12.0-15.0) g/dL Hct 37.6 (37.2-46.3) % MCV 83.6 D (80.0-97.0) fL MCH 26.7 L (27.0-32.0) pg MCHC 31.9 L (32.0-37.0) g/dL Plt Count 231 (140-440) 10*3/uL MPV 10.3 (9.5-12.2) fL Immature Gran % (Auto) 0.2 % Neutrophils % 72.2 % Lymphocytes % 17.2 % Monocytes % 9.5 % Eosinophils % 0.2 % Basophils % 0.7 % Immature Gran # 0.01 (0.00-0.04) 10*3/uL Neutrophils # 3.11 (1.80-7.70) 10*3/uL Lymphocytes # 0.74 L (0.90-5.00) 10*3/uL Monocytes # 0.41 (0.20-1.00) 10*3/uL Eosinophils # 0.01 L (0.04-0.35) 10*3/uL Basophils # 0.03 (0.00-0.10) 10*3/uL PT 16.2 H (10.0-12.5) sec INR 1.6 H (<1.2) APTT 28.0 (22.0-30.0) sec Sodium 136 L (137-145) mmol/L Potassium 4.7 (3.5-5.1) mmol/L Chloride 101 (98-107) mmol/L Carbon Dioxide 23 (22-30) mmol/L Anion Gap 12 mmol/L BUN 35 H (7-17) mg/dL Creatinine 1.35 H (0.52-1.04) mg/dL Est GFR (CKD-EPI)AfAm 44 (>60 ml/min/1.73 sqM) Est GFR (CKD-EPI)NonAf 38 (>60 ml/min/1.73 sqM) Glucose 113 H (74-99) mg/dL Plasma Lactic Acid Vikas (0.7-2.0) mmol/L Calcium 9.9 (8.4-10.2) mg/dL Total Bilirubin 0.9 (0.2-1.3) mg/dL AST 44 H (14-36) U/L ALT 29 (4-34) U/L Alkaline Phosphatase 192 H (38-126) U/L Troponin I (0.000-0.034) ng/mL Total Protein 7.6 (6.3-8.2) g/dL Albumin 4.1 (3.5-5.0) g/dL Amylase 102 (30-110) U/L Lipase 183 (23-300) U/L Urine Color Urine Appearance (Clear) Urine pH (5.0-8.0) Ur Specific [place] (1.001-1.035) Urine Protein (Negative) Urine Glucose (UA) (Negative) Urine Ketones (Negative) Urine Blood (Negative) Urine Nitrite (Negative) Urine Bilirubin (Negative) Urine Urobilinogen (<2.0) mg/dL Ur Leukocyte Esterase (Negative) Urine RBC (0-5) /hpf Urine WBC (0-5) /hpf Ur Squamous Epith Cells (0-4) /hpf Urine Bacteria (None) /hpf Hyaline Casts (0-2) /lpf Urine Mucus (None) /hpf 08/15/24 08/15/24 08/15/24 Range/Units 22:09 22:09 23:23 WBC (4.50-10.00) 10*3/uL RBC (4.10-5.20) 10*6/uL Hgb (12.0-15.0) g/dL Hct (37.2-46.3) % MCV (80.0-97.0) fL MCH (27.0-32.0) pg MCHC (32.0-37.0) g/dL Plt Count (140-440) 10*3/uL MPV (9.5-12.2) fL Immature Gran % (Auto) % Neutrophils % % Lymphocytes % % Monocytes % % Eosinophils % % Basophils % % Immature Gran # (0.00-0.04) 10*3/uL Neutrophils # (1.80-7.70) 10*3/uL Lymphocytes # (0.90-5.00) 10*3/uL Monocytes # (0.20-1.00) 10*3/uL Eosinophils # (0.04-0.35) 10*3/uL Basophils # (0.00-0.10) 10*3/uL PT (10.0-12.5) sec INR (<1.2) APTT (22.0-30.0) sec Sodium (137-145) mmol/L Potassium (3.5-5.1) mmol/L Chloride (98-107) mmol/L Carbon Dioxide (22-30) mmol/L Anion Gap mmol/L BUN (7-17) mg/dL Creatinine (0.52-1.04) mg/dL Est GFR (CKD-EPI)AfAm (>60 ml/min/1.73 sqM) Est GFR (CKD-EPI)NonAf (>60 ml/min/1.73 sqM) Glucose (74-99) mg/dL Plasma Lactic Acid Vikas 1.4 (0.7-2.0) mmol/L Calcium (8.4-10.2) mg/dL Total Bilirubin (0.2-1.3) mg/dL AST (14-36) U/L ALT (4-34) U/L Alkaline Phosphatase (38-126) U/L Troponin I <0.012 (0.000-0.034) ng/mL Total Protein (6.3-8.2) g/dL Albumin (3.5-5.0) g/dL Amylase (30-110) U/L Lipase (23-300) U/L Urine Color Yellow Urine Appearance Clear (Clear) Urine pH 5.5 (5.0-8.0) Ur Specific [place] 1.020 (1.001-1.035) Urine Protein 1+ H (Negative) Urine Glucose (UA) Negative (Negative) Urine Ketones Negative (Negative) Urine Blood Negative (Negative) Urine Nitrite Negative (Negative) Urine Bilirubin Negative (Negative) Urine Urobilinogen 2.0 (<2.0) mg/dL Ur Leukocyte Esterase Negative (Negative) Urine RBC <1 (0-5) /hpf Urine WBC 1 (0-5) /hpf Ur Squamous Epith Cells <1 (0-4) /hpf Urine Bacteria Rare H (None) /hpf Hyaline Casts 3 H (0-2) /lpf Urine Mucus Rare H (None) /hpf Disposition <Yudi Hutson - Last Filed: 08/15/24 19:57> Is patient prescribed a controlled substance at d/c from ED?: No Time of Disposition: 23:45 <Michael Perez - Last Filed: 08/22/24 21:09> Clinical Impression: Nausea & vomiting Disposition: HOME SELF-CARE Condition: Good Instructions (If sedation given, give patient instructions): Acute Nausea and Vomiting (ED) Referrals: Gino Thayer DO [Primary Care Provider] - 1-2 days
--- NOTE | 2024-08-15 21:23 | US ---
EXAMINATION TYPE: US gallbladder DATE OF EXAM: 08/15/2024 COMPARISON: NONE CLINICAL INDICATION: Female, 79 years old with history of abdominal pain, jaundice; Pain and jaundice . Heart surgery in April of 2024. TECHNIQUE: Grayscale and color Doppler imaging of the right upper quadrant was performed. FINDINGS: EXAM MEASUREMENTS: Liver Length: 15.4 cm Gallbladder Wall: .6 cm CBD: .6 cm Right Kidney: 10.5 x 4.0 x 4.4 cm NEURODIAGNOSTIC TECH NOTES: Pancreas: Tail obscured by overlying bowel gas Liver: Hypoechoic lesion in the right hepatic lobe measuring 3.0 x 2.3 x 2.9 cm, not significantly c hanged in size from prior studies. Gallbladder: Biliary sludge and nonspecific although thickening/edema measuring up to 6 mm in diamete r. Evidence for sonographic Garduno's sign: no CBD: upper limits Right Kidney: No hydronephrosis or masses seen Partially visualized likely small right pleural effusion. IMPRESSION: 1. Biliary sludge and nonspecific gallbladder wall thickening/edema. Shingler reports a nega tive Garduno's sign. The need for further evaluation with nuclear medicine HIDA scan should be determi lesvia clinically. 2. Indeterminate capsular based hypoechoic lesion in the right hepatic lobe, not significantly waller ed in size from multiple prior studies. [facility], , 08/15/2024 9:21 PM
[2024-08-15 22:16] LABS: Basophils # (A) 0.03 10*3/uL (0.00-0.10); Basophils % (A) 0.7 %; Eosinophils # (A) 0.01 10*3/uL (0.04-0.35); Eosinophils % (A) 0.2 %; HCT 37.6 % (37.2-46.3); Lymphocytes # (A) 0.74 10*3/uL (0.90-5.00); Lymphocytes % (A) 17.2 %; MCH 26.7 pg (27.0-32.0); MCHC 31.9 g/dL (32.0-37.0); Mean Platelet Volume 10.3 fL (9.5-12.2); Monocytes # (A) 0.41 10*3/uL (0.20-1.00); Monocytes % (A) 9.5 %; Neutrophils # (A) 3.11 10*3/uL (1.80-7.70); Neutrophils % (A) 72.2 %; Platelet Count 231 10*3/uL (140-440); RDW 16.5 % (11.5-14.5); WBC 4.31 10*3/uL (4.50-10.00)
[2024-08-15 22:18] LABS: MCV 83.6 fL (80.0-97.0)
[2024-08-15 22:24] LABS: INR 1.6 (<1.2); Prothrombin Time 16.2 sec (10.0-12.5)
[2024-08-15 22:38] LABS: ALT 29 U/L (4-34); AST 44 U/L (14-36); African American GFR (CKD) 44 (>60 ml/min/1.73 sqM); Albumin 4.1 g/dL (3.5-5.0); Alkaline Phosphatase 192 U/L (38-126); Amylase 102 U/L (30-110); Anion Gap 12 mmol/L; Blood Urea Nitrogen 35 mg/dL (7-17); Calcium 9.9 mg/dL (8.4-10.2); Carbon Dioxide 23 mmol/L (22-30); Chloride 101 mmol/L (98-107); Glucose 113 mg/dL (74-99); Lipase 183 U/L (23-300); Non-African American GFR(CKD) 38 (>60 ml/min/1.73 sqM); Potassium 4.7 mmol/L (3.5-5.1); Sodium 136 mmol/L (137-145); Total Bilirubin 0.9 mg/dL (0.2-1.3); Total Protein 7.6 g/dL (6.3-8.2)
[2024-08-15] MEDS: ONDANSETRON 4 MG/2 ML VIAL IVP STA (23:29)
[2024-08-15] MEDS: PANTOPRAZOLE 40 MG/10 ML VIAL IVP STA (23:30)
[2024-08-15] MEDS: KETOROLAC 15 MG/ML 1 ML VIAL IVP STA (23:34)
[2024-08-15 23:45] LABS: Appearance,Urine Clear (Clear); Bacteria,Urine Rare /hpf; Bilirubin,Urine Negative (Negative); Blood,Urine Negative (Negative); Color,Urine Yellow; Glucose,Urine (UA) Negative (Negative); Hyaline Casts,Urine 3 /lpf (0-2); Ketones,Urine Negative (Negative); Leukocyte Esterase,Urine Negative (Negative); Mucus,Urine Rare /hpf; Nitrite,Urine Negative (Negative); PH, Urine 5.5 (5.0-8.0); Protein,Urine 1+ (Negative); RBC,Urine <1 /hpf (0-5); Squamous Epithelial Cell,Urine <1 /hpf (0-4); WBC,Urine 1 /hpf (0-5)
[2024-08-16 00:18] VITALS: BP 133/92; PULSE 74; RESP 19; TEMP 97.5
[2024-08-16] MEDS: SODIUM CHLORIDE 0.9% 1,000 ML IV ONE (00:20)
[2024-08-16] MEDS: ONDANSETRON 4 MG ODT STARTER PACK 2 TAB BTL PO STA (01:01)
[2024-08-16] MEDS: SODIUM CHLORIDE 0.9% 1,000 ML IV SCH (01:01)
== END 2024-08-16 01:07 | disposition home or self-care (01) ==
LOC: EC 19:13
DX: R11.2 Nausea with vomiting, unspecified (principal); Z91.018 Allergy to other foods; Z88.8 Allergy status to other drugs, medicaments and biological substances
CPT/HCPCS: 36415; 93005; 80053; 82150; 83605; 83690; 84484; 85025; 85610; 85730; 81001; 76705; 99284; 96374; 96375; 96361; J2405; S0119; J2470